=== PATIENT | male | born 1960 | race Caucasian/White ===

== ENCOUNTER → 2017-11-22 11:09 | Outpatient (CLI) | payer OTHER, SELFPAY ==
--- NOTE | 2017-11-22 11:39 | EKG12_ITS ---
Test Reason : PRE-OP Blood Pressure : / mmHG Vent. Rate : 065 BPM Atrial Rate : 065 BPM P-R Int : 124 ms QRS Dur : 068 ms QT Int : 442 ms P-R-T Axes : 055 020 041 degrees QTc Int : 459 ms Normal sinus rhythm Normal ECG Confirmed by HARRIET CASSIDY, JOSE ([id number]), content editor ALONSO CHANEY ([id number] on 11/23/2017 3:34:30 PM Referred By: Diego Melton Confirmed By:JOSE LARIOS MD
--- NOTE | 2017-11-22 11:52 | RAD_ITS ---
STUDY: X-RAY CHEST REASON FOR EXAM: Male, 57 years old. Preop TECHNIQUE: PA and lateral views of the chest. COMPARISON: None. FINDINGS: The lungs are clear and expanded. There is no demonstrated pleural abnormality. Normal size heart. Normal mediastinum and taty. Normal visualized pulmonary arteries. There are calcified plaques of the aortic arch. Normal visualized thoracic spine. Normal visualized ribs, clavicles, and shoulders. There is no demonstrated abnormality of the visualized soft tissue structures of the upper abdomen. RAD/Chest PA and Lateral IMPRESSION: Calcified plaques of the aortic arch. No acute cardiac pulmonary disease process is seen. Electronically Signed: Mj Stewart MD at 17:00 EDT , Service support ,
[2017-11-22 11:56] LABS: Absolute Lymphocyte Count 1.29 X10^3/ul (0.83-4.51); Absolute Neutrophil Count 4.3 X10^3/uL (2.0-7.7); Basophil# 0.04 X10^3/uL; Basophil% 0.6 % (0-1); Eosinophils% 3.2 % (0-5); Hematocrit 41.8 % (40-54); Hemoglobin 15.1 g/dl (13.0-16.5); Lymphocyte # 1.29 X10^3/ul (4.0); Lymphocyte % 20.8 % (19-41); Mean Corp Hgb Conc 36.1 g/gl (32-36); Mean Corpuscular Hgb 32.3 pg (27.0-32.0); Mean Corpuscular Volume 89.5 fL (80-94); Mean Platelet Vol. 9.8 fl (6.2-12.0); Monocyte# 0.35 X10^3/uL; Monocyte% 5.6 % (0-10); Neutrophil # 4.32 X10^3/uL (2.7-7.7); Neutrophil % 69.6 % (47-70); Platelet Count 284 K/mm3 (150-450); RBC Distribution Width CV 13.6 % (11.6-14.6); RBC Distribution Width SD 44.2 fl (35.1-43.9); Red Blood Count 4.67 M/mm3 (4.6-6.2); White Blood Count 6.2 K/mm3 (4.4-11.0)
[2017-11-22 11:58] LABS: POSITIVE COUNT NO; POSITIVE DIFFERENTIAL NO; POSITIVE MORPHOLOGY NO
[2017-11-22 12:20] LABS: Anion Gap 4 (5-15); BUN 14 mg/dL (7-18); BUN/Creat Ratio 23.5 RATIO (10-20); Calcium,Total 8.6 mg/dL (8.5-10.1); Chloride 113 mmol/L (98-107); EST Glomerular Filtration Rate 149 mL/min (>60); Est Glom Filt Rate - Afr Amer 180 mL/min (>60); Glucose 96 mg/dL (74-106); Sodium Level 142 mmol/L (136-145)
== END ==
PROVIDERS: Visit Provider Orthopaedic Surgery
DX: Z01.818 Encounter for other preprocedural examination (principal); F17.200 Nicotine dependence, unspecified, uncomplicated
CPT/HCPCS: 36415; 71046; 80048; 85025; 93005

== ENCOUNTER → 2018-11-21 | Outpatient (CLI) | payer OTHER, SELFPAY ==
[2018-11-21 15:07] VITALS: BMI 32.3
[2018-11-23 01:09] LABS: Absolute Lymphocyte Count 1.56 X10^3/ul (0.83-4.51); Absolute Neutrophil Count 6.7 X10^3/uL (2.0-7.7); Basophil# 0.03 X10^3/uL; Basophil% 0.3 % (0-1); Eosinophil# 0.11 X10^3/uL; Eosinophils% 1.2 % (0-5); Hematocrit 42.7 % (40-54); Hemoglobin 15.1 g/dl (13.0-16.5); Lymphocyte # 1.56 X10^3/ul (4.0); Lymphocyte % 17.5 % (19-41); Mean Corp Hgb Conc 35.4 g/gl (32-36); Mean Corpuscular Hgb 32.7 pg (27.0-32.0); Mean Corpuscular Volume 92.4 fL (80-94); Mean Platelet Vol. 9.7 fl (6.2-12.0); Monocyte# 0.51 X10^3/uL; Monocyte% 5.7 % (0-10); Neutrophil # 6.71 X10^3/uL (2.7-7.7); Neutrophil % 75.2 % (47-70); Platelet Count 296 K/mm3 (150-450); RBC Distribution Width CV 13.7 % (11.6-14.6); RBC Distribution Width SD 45.8 fl (35.1-43.9); Red Blood Count 4.62 M/mm3 (4.6-6.2); White Blood Count 8.9 K/mm3 (4.4-11.0)
[2018-11-23 01:12] LABS: POSITIVE COUNT NO; POSITIVE DIFFERENTIAL NO; POSITIVE MORPHOLOGY NO
[2018-11-23 01:18] LABS: ALB/GLOB Ratio 1.2 RATIO (0.9-2.4); AST(SGOT) 16 U/L (15-37); Alanine Aminotransfer ALT/SGPT 27 U/L (16-61); Albumin, Serum 4.1 g/dL (3.2-5.0); Alkaline Phosphatase 70 U/L (45-117); Anion Gap 4 (5-15); BUN 16 mg/dL (7-18); BUN/Creat Ratio 21.5 RATIO (10-20); Calcium,Total 9.2 mg/dL (8.5-10.1); Chloride 107 mmol/L (98-107); Cholesterol 166 mg/dL (200); Creatinine, Serum 0.74 mg/dL (0.70-1.30); EST Glomerular Filtration Rate 115 mL/min (>60); Est Glom Filt Rate - Afr Amer 139 mL/min (>60); Globulin 3.3 g/dL (2.2-4.2); Glucose 137 mg/dL (74-106); High Density Lipoprotein 63 mg/dL; Potassium 4.4 mmol/L (3.5-5.1); Protein, Total 7.4 g/dL (6.4-8.2); Sodium Level 141 mmol/L (136-145); Thyroid Stim Hormone (TSH) 0.46 uIU/mL (0.358-3.74); Triglycerides 182 mg/dL; Very Low Density Lipoprotein 36 mg/dL (5-40)
== END | disposition home or self-care (01) ==
PROVIDERS: Referring Provider Nurse Practitioner; Visit Provider Nurse Practitioner
DX: I10 Essential (primary) hypertension (principal); E03.9 Hypothyroidism, unspecified
CPT/HCPCS: 80053; 80061; 84443; 85025

== ENCOUNTER → 2018-12-28 | Outpatient (CLI) | payer OTHER, SELFPAY ==
[2018-12-28 17:02] VITALS: BMI 32.1
[2018-12-28 22:40] LABS: Absolute Lymphocyte Count 1.69 X10^3/ul (0.83-4.51); Absolute Neutrophil Count 5.4 X10^3/uL (2.0-7.7); Basophil# 0.05 X10^3/uL; Basophil% 0.6 % (0-1); Eosinophil# 0.17 X10^3/uL; Eosinophils% 2.2 % (0-5); Hematocrit 43.1 % (40-54); Hemoglobin 15.2 g/dl (13.0-16.5); Lymphocyte # 1.69 X10^3/ul (4.0); Lymphocyte % 21.9 % (19-41); Mean Corp Hgb Conc 35.3 g/gl (32-36); Mean Corpuscular Hgb 32.4 pg (27.0-32.0); Mean Corpuscular Volume 91.9 fL (80-94); Mean Platelet Vol. 10.1 fl (6.2-12.0); Monocyte# 0.44 X10^3/uL; Monocyte% 5.7 % (0-10); Neutrophil # 5.36 X10^3/uL (2.7-7.7); Neutrophil % 69.5 % (47-70); Platelet Count 300 K/mm3 (150-450); RBC Distribution Width CV 13.7 % (11.6-14.6); RBC Distribution Width SD 45.5 fl (35.1-43.9); Red Blood Count 4.69 M/mm3 (4.6-6.2); White Blood Count 7.7 K/mm3 (4.4-11.0)
[2018-12-28 22:45] LABS: POSITIVE COUNT NO; POSITIVE DIFFERENTIAL NO; POSITIVE MORPHOLOGY NO
[2018-12-28 22:53] LABS: ALB/GLOB Ratio 1.1 RATIO (0.9-2.4); AST(SGOT) 18 U/L (15-37); Alanine Aminotransfer ALT/SGPT 29 U/L (16-61); Alkaline Phosphatase 66 U/L (45-117); Anion Gap 7 (5-15); BUN 17 mg/dL (7-18); BUN/Creat Ratio 19.7 RATIO (10-20); Calcium,Total 9.2 mg/dL (8.5-10.1); Chloride 107 mmol/L (98-107); Creatinine, Serum 0.86 mg/dL (0.70-1.30); EST Glomerular Filtration Rate 97 mL/min (>60); Est Glom Filt Rate - Afr Amer 117 mL/min (>60); Globulin 3.5 g/dL (2.2-4.2); Glucose 122 mg/dL (74-106); Potassium 3.9 mmol/L (3.5-5.1); Protein, Total 7.5 g/dL (6.4-8.2); Sodium Level 142 mmol/L (136-145)
[2019-01-03 09:34] LABS: Vitamin D 1,25-Dihydroxy 65.4 pg/mL (19.9-79.3)
== END | disposition home or self-care (01) ==
PROVIDERS: Referring Provider Nurse Practitioner; Visit Provider Nurse Practitioner
DX: E87.6 Hypokalemia (principal); I10 Essential (primary) hypertension; E55.9 Vitamin D deficiency, unspecified
CPT/HCPCS: 80053; 82652; 85025

== ENCOUNTER → 2019-03-13 22:25 | Outpatient (CLI) | payer OTHER, SELFPAY ==
[2019-03-13 18:42] VITALS: BMI 31.4
[2019-03-13 22:26] LABS: Lyme Ab Screen Interpretation REF LAB
[2019-03-13 22:37] LABS: Absolute Lymphocyte Count 1.32 X10^3/uL (0.83-4.51); Absolute Neutrophil Count 5.6 X10^3/uL (2.0-7.7); Basophil# 0.07 X10^3/uL; Basophil% 0.9 % (0-1); Eosinophil# 0.19 X10^3/uL; Eosinophils% 2.5 % (0-5); Hematocrit 43.6 % (40-54); Hemoglobin 15.3 g/dL (13.0-16.5); Lymphocyte # 1.32 X10^3/ul (4.0); Lymphocyte % 17.4 % (19-41); Mean Corp Hgb Conc 35.1 g/dL (32-36); Mean Corpuscular Hgb 31.8 pg (27.0-32.0); Mean Corpuscular Volume 90.6 fL (80-94); Mean Platelet Vol. 10.3 fl (6.2-12.0); Monocyte# 0.37 X10^3/uL; Monocyte% 4.9 % (0-10); NRBC Flagged by Analyzer 0 % (0-5); Neutrophil # 5.63 X10^3/uL (2.7-7.7); Platelet Count 306 K/mm3 (150-450); RBC Distribution Width CV 12.9 % (11.6-14.6); RBC Distribution Width SD 42.2 fl (35.1-43.9); Red Blood Count 4.81 M/mm3 (4.6-6.2); White Blood Count 7.6 K/mm3 (4.4-11.0)
[2019-03-13 22:52] LABS: ALB/GLOB Ratio 1.2 RATIO (0.9-2.4); AST(SGOT) 17 U/L (15-37); Alanine Aminotransfer ALT/SGPT 38 U/L (16-61); Albumin, Serum 3.9 g/dL (3.2-5.0); Alkaline Phosphatase 70 U/L (45-117); Anion Gap 4 (5-15); BUN 17 mg/dL (7-18); Calcium,Total 8.9 mg/dL (8.5-10.1); Chloride 109 mmol/L (98-107); Creatinine, Serum 0.77 mg/dL (0.70-1.30); EST Glomerular Filtration Rate 110 mL/min (>60); Est Glom Filt Rate - Afr Amer 133 mL/min (>60); Globulin 3.2 g/dL (2.2-4.2); Glucose 127 mg/dL (74-106); Potassium 3.8 mmol/L (3.5-5.1); Protein, Total 7.1 g/dL (6.4-8.2); Sodium Level 142 mmol/L (136-145)
[2019-03-15 16:07] LABS: ANTINUCLEAR ANTIBODIES DIRECT Positive (Negative); Anti-Centromere B Ab <0.2 AI (0.0-0.9); Anti-Chromatin <0.2 AI (0.0-0.9); Anti-Jo <0.2 AI (0.0-0.9); Anti-Scleroderma-70 AB <0.2 AI (0.0-0.9); RNP Ab 0.2 AI (0.0-0.9); SJOGREN'S Anti-SS-A test < 0.2 AI (0.0-0.9); SJOGREN'S Anti-SS-B test < 0.2 AI (0.0-0.9); Smith Ab <0.2 AI (0.0-0.9)
[2019-03-16 08:19] LABS: Anti-dsDNA Ab 10 IU/mL (0-9)
[2019-03-16 08:21] LABS: Lyme Scn Total Ab w/Rflx <0.91 ISR (0.00-0.90)
== END ==
PROVIDERS: Referring Provider Nurse Practitioner; Visit Provider Nurse Practitioner
DX: M25.50 Pain in unspecified joint (principal)
CPT/HCPCS: 80053; 85025; 86038; 86225; 86235; 86618

== ENCOUNTER → 2019-10-19 | Outpatient (CLI) | payer OTHER, SELFPAY ==
[2019-10-18 16:04] VITALS: BMI 31.6
[2019-10-19 22:01] LABS: Thyroid Stim Hormone (TSH) 1.13 uIU/mL (0.358-3.74)
== END | disposition home or self-care (01) ==
PROVIDERS: Visit Provider Nurse Practitioner
DX: E03.9 Hypothyroidism, unspecified (principal)
CPT/HCPCS: 84443

== ENCOUNTER → 2020-09-16 | Outpatient (CLI) | payer OTHER, SELFPAY ==
[2020-06-11 17:24] VITALS: BMI 31.6
[2020-09-16 20:26] LABS: Absolute Lymphocyte Count 1.68 X10^3/uL (0.83-4.51); Absolute Neutrophil Count 5.1 X10^3/uL (2.0-7.7); Basophil# 0.07 X10^3/uL; Basophil% 0.9 % (0-1); Eosinophil# 0.19 X10^3/uL; Eosinophils% 2.5 % (0-5); Hematocrit 44.3 % (40-54); Hemoglobin 15.5 g/dL (13.0-16.5); Lymphocyte # 1.68 X10^3/ul (4.0); Lymphocyte % 22.1 % (19-41); Mean Corpuscular Hgb 31.6 pg (27.0-32.0); Mean Corpuscular Volume 90.2 fL (80-94); Mean Platelet Vol. 10.1 fl (6.2-12.0); Monocyte# 0.52 X10^3/uL; Monocyte% 6.8 % (0-10); NRBC Flagged by Analyzer 0 % (0-5); Neutrophil # 5.12 X10^3/uL (2.7-7.7); Neutrophil % 67.4 % (47-70); Platelet Count 315 K/mm3 (150-450); RBC Distribution Width CV 13.5 % (11.6-14.6); RBC Distribution Width SD 45.1 fl (35.1-43.9); Red Blood Count 4.91 M/mm3 (4.6-6.2); White Blood Count 7.6 K/mm3 (4.4-11.0)
[2020-09-16 20:45] LABS: ALB/GLOB Ratio 1.2 RATIO (0.9-2.4); AST(SGOT) 18 U/L (15-37); Alanine Aminotransfer ALT/SGPT 30 U/L (16-61); Albumin, Serum 3.9 g/dL (3.2-5.0); Alkaline Phosphatase 81 U/L (45-117); Anion Gap 3 (5-15); BUN 20 mg/dL (7-18); BUN/Creat Ratio 27.8 RATIO (10-20); Calcium,Total 9.3 mg/dL (8.5-10.1); Chloride 107 mmol/L (98-107); Cholesterol 170 mg/dL (200); Creatinine, Serum 0.72 mg/dL (0.70-1.30); EST Glomerular Filtration Rate 119 mL/min (>60); Est Glom Filt Rate - Afr Amer 144 mL/min (>60); Globulin 3.3 g/dL (2.2-4.2); Glucose 76 mg/dL (74-106); High Density Lipoprotein 59 mg/dL; Potassium 4.2 mmol/L (3.5-5.1); Protein, Total 7.2 g/dL (6.4-8.2); Sodium Level 142 mmol/L (136-145); Thyroid Stim Hormone (TSH) 1.86 uIU/mL (0.358-3.74); Triglycerides 174 mg/dL; Very Low Density Lipoprotein 35 mg/dL (5-40)
== END | disposition home or self-care (01) ==
PROVIDERS: Referring Provider Nurse Practitioner; Visit Provider Nurse Practitioner
DX: I10 Essential (primary) hypertension (principal); E03.9 Hypothyroidism, unspecified
CPT/HCPCS: 80053; 80061; 84443; 85025

== ENCOUNTER → 2022-01-13 | Outpatient (CLI) | payer OTHER, SELFPAY ==
[2022-01-13 22:12] LABS: Absolute Lymphocyte Count 1.68 X10^3/uL (0.83-4.51); Absolute Neutrophil Count 6.2 X10^3/uL (2.0-7.7); Basophil# 0.06 X10^3/uL; Basophil% 0.7 % (0-1); Eosinophil# 0.18 X10^3/uL; Eosinophils% 2.1 % (0-5); Hematocrit 43.3 % (40-54); Hemoglobin 15.4 g/dL (13.0-16.5); Lymphocyte # 1.68 X10^3/ul (0.83-4.51); Lymphocyte % 19.7 % (19-41); Mean Corp Hgb Conc 35.6 g/dL (32-36); Mean Corpuscular Hgb 32.1 pg (27.0-32.0); Mean Corpuscular Volume 90.2 fL (80-94); Mean Platelet Vol. 10.1 fl (6.2-12.0); Monocyte# 0.43 X10^3/uL; NRBC Flagged by Analyzer 0 % (0-5); Neutrophil # 6.15 X10^3/uL (2.7-7.7); Neutrophil % 72.1 % (47-70); Platelet Count 331 K/mm3 (150-450); RBC Distribution Width CV 12.9 % (11.6-14.6); RBC Distribution Width SD 42.4 fl (35.1-43.9); White Blood Count 8.5 K/mm3 (4.4-11.0)
[2022-01-13 22:23] LABS: Vitamin B12 441 pg/mL (211-911)
[2022-01-13 22:34] LABS: ALB/GLOB Ratio 1.2 RATIO (0.9-2.4); AST(SGOT) 14 U/L (15-37); Alanine Aminotransfer ALT/SGPT 30 U/L (16-61); Albumin, Serum 3.8 g/dL (3.2-5.0); Alkaline Phosphatase 68 U/L (45-117); Anion Gap 6 (5-15); BUN 15 mg/dL (7-18); BUN/Creat Ratio 20.9 RATIO (10-20); Chloride 107 mmol/L (98-107); Cholesterol 178 mg/dL (200); Creatinine, Serum 0.72 mg/dL (0.70-1.30); EST Glomerular Filtration Rate 119 mL/min (>60); Est Glom Filt Rate - Afr Amer 143 mL/min (>60); Globulin 3.3 g/dL (2.2-4.2); Glucose 101 mg/dL (74-106); High Density Lipoprotein 60 mg/dL; Potassium 3.9 mmol/L (3.5-5.1); Protein, Total 7.1 g/dL (6.4-8.2); Sodium Level 138 mmol/L (136-145); Thyroid Stim Hormone (TSH) 4.94 uIU/mL (0.358-3.74); Triglycerides 118 mg/dL; Very Low Density Lipoprotein 24 mg/dL (5-40)
[2022-01-17 16:04] LABS: Vitamin D 1,25-Dihydroxy 82.6 pg/mL (24.8-81.5)
== END | disposition home or self-care (01) ==
LOC: LABSPEC 21:58
PROVIDERS: PCP Nurse Practitioner; Visit Provider Nurse Practitioner
DX: I10 Essential (primary) hypertension (principal); E03.9 Hypothyroidism, unspecified; E53.9 Vitamin B deficiency, unspecified; E55.9 Vitamin D deficiency, unspecified
CPT/HCPCS: 80053; 80061; 82607; 82652; 84443; 85025

== ENCOUNTER → 2022-07-28 | Outpatient (CLI) | payer OTHER, SELFPAY ==
[2022-07-28 22:32] LABS: Thyroid Stim Hormone (TSH) 1.97 uIU/mL (0.358-3.74)
== END | disposition home or self-care (01) ==
PROVIDERS: PCP Nurse Practitioner; Visit Provider Nurse Practitioner
DX: E03.9 Hypothyroidism, unspecified (principal)
CPT/HCPCS: 84443

== ENCOUNTER → 2022-11-03 | Outpatient (CLI) | payer OTHER, SELFPAY ==
[2022-11-03 09:45] LABS: Absolute Lymphocyte Count 1.91 X10^3/uL (0.83-4.51); Absolute Neutrophil Count 4.5 X10^3/uL (2.0-7.7); Basophil# 0.07 X10^3/uL; Eosinophil# 0.26 X10^3/uL; Eosinophils% 3.6 % (0-5); Hematocrit 43.9 % (40-54); Hemoglobin 15.6 g/dL (13.0-16.5); Lymphocyte # 1.91 X10^3/ul (0.83-4.51); Lymphocyte % 26.8 % (19-41); Mean Corp Hgb Conc 35.5 g/dL (32-36); Mean Corpuscular Volume 90.1 fL (80-94); Mean Platelet Vol. 9.8 fl (6.2-12.0); Monocyte# 0.38 X10^3/uL; Monocyte% 5.3 % (0-10); NRBC Flagged by Analyzer 0 % (0-5); Neutrophil # 4.49 X10^3/uL (2.7-7.7); Platelet Count 273 K/mm3 (150-450); RBC Distribution Width CV 12.6 % (11.6-14.6); RBC Distribution Width SD 41.2 fl (35.1-43.9); Red Blood Count 4.87 M/mm3 (4.6-6.2); White Blood Count 7.1 K/mm3 (4.4-11.0)
[2022-11-03 10:48] LABS: BNP,B-Type NATRIURETIC PEPTIDE 110.2 pg/mL (0-100)
== END | disposition home or self-care (01) ==
LOC: PAVLAB 09:26
PROVIDERS: PCP Nurse Practitioner; Referring Provider Internal Medicine; Visit Provider Internal Medicine
DX: G47.30 Sleep apnea, unspecified (principal); E53.9 Vitamin B deficiency, unspecified
CPT/HCPCS: 36415; 83880; 85025

== ENCOUNTER → 2022-11-13 | Outpatient (CLI) | payer OTHER, SELFPAY | END | disposition home or self-care (01) | PROVIDERS: PCP Nurse Practitioner; Referring Provider Internal Medicine; Visit Provider Internal Medicine | DX: G47.10 Hypersomnia, unspecified (principal); G47.30 Sleep apnea, unspecified | CPT/HCPCS: 95810 ==

== ENCOUNTER → 2022-11-17 | Outpatient (CLI) | payer OTHER, SELFPAY ==
--- NOTE | 2022-11-18 08:38 | PFT ---
INTRODUCTION: The patient is a 62-year-old female that presents for pulmonary function studies secondary to a diagnosis of nicotine dependency. Respiratory therapy reported good patient effort. Bronchodilators were used during testing. INTERPRETATION: Forced expiration spirometry demonstrates no evidence of a large airways obstructive ventilatory defect. There was no significant response to aerosolized bronchodilators. Spirograms are of good quality and plateau normally. Body plethysmography was obtained and demonstrated lung volumes to be within normal limits. Diffusing capacity by single breath CO was likewise within normal limits. IMPRESSION: Grossly normal pulmonary function studies.
== END | disposition home or self-care (01) ==
PROVIDERS: PCP Nurse Practitioner; Referring Provider Internal Medicine; Visit Provider Internal Medicine
DX: Z87.891 Personal history of nicotine dependence (principal)
CPT/HCPCS: 94060; 94726; 94729

== ENCOUNTER → 2023-01-27 | Outpatient (CLI) | payer OTHER, SELFPAY ==
[2023-01-27 23:11] LABS: AST(SGOT) 16 U/L (15-37); Alanine Aminotransfer ALT/SGPT 35 U/L (13-56); Albumin, Serum 3.5 g/dL (3.2-5.0); Alkaline Phosphatase 72 U/L (45-117); Anion Gap 3 (5-15); BUN 14 mg/dL (7-18); BUN/Creat Ratio 19.2 RATIO (10-20); CRP, High Sensitivity Cardiac 3.79 mg/L; Calcium,Total 9.4 mg/dL (8.5-10.1); Chloride 111 mmol/L (98-107); Creatinine, Serum 0.73 mg/dL (0.55-1.02); EST Glomerular Filtration Rate 86 mL/min (>60); Est Glom Filt Rate - Afr Amer 104 mL/min (>60); Globulin 3.4 g/dL (2.2-4.2); Glucose 165 mg/dL (74-106); Potassium 4.3 mmol/L (3.5-5.1); Protein, Total 6.9 g/dL (6.4-8.2); Sodium Level 143 mmol/L (136-145); Thyroid Stim Hormone (TSH) 1.45 uIU/mL (0.358-3.74)
== END | disposition home or self-care (01) ==
PROVIDERS: PCP Nurse Practitioner; Visit Provider Nurse Practitioner
DX: I10 Essential (primary) hypertension (principal); E03.9 Hypothyroidism, unspecified; R42 Dizziness and giddiness
CPT/HCPCS: 80053; 84443; 86141

== ENCOUNTER → 2023-03-30 | Outpatient (CLI) | payer SELFPAY ==
[2023-03-30 21:03] LABS: Absolute Lymphocyte Count 1.71 X10^3/uL (0.83-4.51); Absolute Neutrophil Count 3.5 X10^3/uL (2.0-7.7); Basophil# 0.07 X10^3/uL; Basophil% 1.2 % (0-1); Eosinophil# 0.18 X10^3/uL; Hematocrit 41.1 % (37-47); Hemoglobin 14.7 g/dL (12.0-15.0); Lymphocyte # 1.71 X10^3/ul (0.83-4.51); Lymphocyte % 28.8 % (19-41); Mean Corp Hgb Conc 35.8 g/dL (32-36); Mean Corpuscular Hgb 31.6 pg (27.0-32.0); Mean Corpuscular Volume 88.4 fL (81-99); Mean Platelet Vol. 10.1 fl (6.2-12.0); Monocyte# 0.42 X10^3/uL; Monocyte% 7.1 % (0-10); NRBC Flagged by Analyzer 0 % (0-5); Neutrophil # 3.54 X10^3/uL (2.7-7.7); Neutrophil % 59.7 % (47-70); Platelet Count 312 K/mm3 (150-450); RBC Distribution Width CV 12.8 % (11.6-14.6); RBC Distribution Width SD 41.2 fl (35.1-43.9); Red Blood Count 4.65 M/mm3 (4.2-5.4); White Blood Count 5.9 K/mm3 (4.4-11.0)
[2023-03-30 21:16] LABS: ALB/GLOB Ratio 1.1 RATIO (0.9-2.4); AST(SGOT) 16 U/L (15-37); Alanine Aminotransfer ALT/SGPT 36 U/L (13-56); Albumin, Serum 3.9 g/dL (3.2-5.0); Alkaline Phosphatase 84 U/L (45-117); Anion Gap 6 (5-15); BUN 14 mg/dL (7-18); BUN/Creat Ratio 19.8 RATIO (10-20); Calcium,Total 9.4 mg/dL (8.5-10.1); Chloride 108 mmol/L (98-107); Cholesterol 158 mg/dL (200); Creatinine, Serum 0.71 mg/dL (0.55-1.02); EST Glomerular Filtration Rate 89 mL/min (>60); Est Glom Filt Rate - Afr Amer 108 mL/min (>60); Globulin 3.4 g/dL (2.2-4.2); Glucose 157 mg/dL (74-106); High Density Lipoprotein 47 mg/dL; Potassium 3.7 mmol/L (3.5-5.1); Protein, Total 7.3 g/dL (6.4-8.2); Sodium Level 140 mmol/L (136-145); Triglycerides 115 mg/dL; Very Low Density Lipoprotein 23 mg/dL (5-40)
== END | disposition home or self-care (01) ==
PROVIDERS: PCP Nurse Practitioner; Visit Provider Nurse Practitioner
DX: G47.30 Sleep apnea, unspecified (principal); G47.10 Hypersomnia, unspecified; R53.83 Other fatigue; N95.1 Menopausal and female climacteric states; I10 Essential (primary) hypertension; E03.9 Hypothyroidism, unspecified
CPT/HCPCS: 80053; 80061; 85025

== ENCOUNTER → 2024-03-09 | Outpatient (CLI) | payer OTHER, SELFPAY ==
[2024-03-09 21:10] LABS: Absolute Lymphocyte Count 1.68 X10^3/uL (0.83-4.51); Absolute Neutrophil Count 5.7 X10^3/uL (2.0-7.7); Basophil# 0.04 X10^3/uL; Basophil% 0.5 % (0-1); Eosinophils% 1.3 % (0-5); Hematocrit 43.8 % (37-47); Lymphocyte # 1.68 X10^3/ul (0.83-4.51); Lymphocyte % 21.3 % (19-41); Mean Corp Hgb Conc 36.5 g/dL (32-36); Mean Corpuscular Hgb 31.9 pg (27.0-32.0); Mean Corpuscular Volume 87.4 fL (81-99); Mean Platelet Vol. 10.2 fl (6.2-12.0); Monocyte# 0.41 X10^3/uL; Monocyte% 5.2 % (0-10); NRBC Flagged by Analyzer 0 % (0-5); Neutrophil # 5.65 X10^3/uL (2.7-7.7); Neutrophil % 71.4 % (47-70); Platelet Count 332 K/mm3 (150-450); RBC Distribution Width CV 13.2 % (11.6-14.6); RBC Distribution Width SD 42.3 fl (35.1-43.9); Red Blood Count 5.01 M/mm3 (4.2-5.4); White Blood Count 7.9 K/mm3 (4.4-11.0)
[2024-03-09 21:25] LABS: ALB/GLOB Ratio 1.2 RATIO (0.9-2.4); AST(SGOT) 25 U/L (15-37); Alanine Aminotransfer ALT/SGPT 43 U/L (13-56); Albumin, Serum 4.1 g/dL (3.2-5.0); Alkaline Phosphatase 93 U/L (45-117); Anion Gap 6 (5-15); BUN 17 mg/dL (7-18); BUN/Creat Ratio 21.4 RATIO (10-20); CRP 4.84 mg/L (0.0-3.0); Calcium,Total 9.7 mg/dL (8.5-10.1); Chloride 109 mmol/L (98-107); Cholesterol 168 mg/dL (200); Creatinine, Serum 0.79 mg/dL (0.55-1.02); EST Glomerular Filtration Rate 78 mL/min (>60); Est Glom Filt Rate - Afr Amer 94 mL/min (>60); Globulin 3.4 g/dL (2.2-4.2); Glucose 108 mg/dL (74-106); High Density Lipoprotein 56 mg/dL; Potassium 3.5 mmol/L (3.5-5.1); Protein, Total 7.5 g/dL (6.4-8.2); Sodium Level 140 mmol/L (136-145); Triglycerides 103 mg/dL; Uric Acid 5.2 mg/dL (2.6-6.0); Very Low Density Lipoprotein 21 mg/dL (5-40)
[2024-03-09 21:34] LABS: Hemoglobin A1c 6.1 % (3.8-5.6)
[2024-03-14 11:59] LABS: Anti-Centromere B Ab <0.2 AI (0.0-0.9); Anti-Chromatin <0.2 AI (0.0-0.9); Anti-Jo <0.2 AI (0.0-0.9); Anti-Scleroderma-70 AB <0.2 AI (0.0-0.9); Anti-dsDNA Ab 8 IU/mL (0-9); RNP Ab 0.2 AI (0.0-0.9); SJOGREN'S Anti-SS-A test < 0.2 AI (0.0-0.9); SJOGREN'S Anti-SS-B test < 0.2 AI (0.0-0.9); Smith Ab <0.2 AI (0.0-0.9)
== END | disposition home or self-care (01) ==
PROVIDERS: PCP Nurse Practitioner; Referring Provider Nurse Practitioner; Visit Provider Nurse Practitioner
DX: E11.65 Type 2 diabetes mellitus with hyperglycemia (principal); M25.521 Pain in right elbow; M25.522 Pain in left elbow; I10 Essential (primary) hypertension; E87.6 Hypokalemia
CPT/HCPCS: 80053; 80061; 83036; 84550; 85025; 86140; 86225; 86235

== ENCOUNTER → 2024-07-17 | Outpatient (CLI) | payer OTHER, SELFPAY ==
[2024-07-17 22:54] LABS: Absolute Neutrophil Count 3.8 X10^3/uL (2.0-7.7); Basophil# 0.06 X10^3/uL; Eosinophil# 0.15 X10^3/uL; Eosinophils% 2.4 % (0-5); Hematocrit 37.5 % (37-47); Hemoglobin 13.5 g/dL (12.0-15.0); Lymphocyte % 30.3 % (19-41); Mean Corpuscular Volume 88.9 fL (81-99); Mean Platelet Vol. 10.5 fl (6.2-12.0); Monocyte# 0.37 X10^3/uL; Monocyte% 5.9 % (0-10); NRBC Flagged by Analyzer 0 % (0-5); Neutrophil # 3.77 X10^3/uL (2.7-7.7); Neutrophil % 60.1 % (47-70); Platelet Count 305 K/mm3 (150-450); RBC Distribution Width CV 13.2 % (11.6-14.6); RBC Distribution Width SD 42.9 fl (35.1-43.9); Red Blood Count 4.22 M/mm3 (4.2-5.4); White Blood Count 6.3 K/mm3 (4.4-11.0)
[2024-07-17 23:18] LABS: ALB/GLOB Ratio 1.2 RATIO (0.9-2.4); AST(SGOT) 21 U/L (15-37); Alanine Aminotransfer ALT/SGPT 34 U/L (13-56); Albumin, Serum 3.7 g/dL (3.2-5.0); Alkaline Phosphatase 74 U/L (45-117); Amylase 52 U/L (25-115); Anion Gap 5 (5-15); BUN 22 mg/dL (7-18); BUN/Creat Ratio 33.5 RATIO (10-20); Calcium,Total 9.4 mg/dL (8.5-10.1); Chloride 112 mmol/L (98-107); Cholesterol 148 mg/dL (200); Creatinine, Serum 0.66 mg/dL (0.55-1.02); EST Glomerular Filtration Rate 97 mL/min (>60); Est Glom Filt Rate - Afr Amer 117 mL/min (>60); Globulin 3.1 g/dL (2.2-4.2); Glucose 98 mg/dL (74-106); High Density Lipoprotein 57 mg/dL; Lipase 60 U/L (13-75); Protein, Total 6.8 g/dL (6.4-8.2); Sodium Level 141 mmol/L (136-145); Triglycerides 94 mg/dL; Very Low Density Lipoprotein 19 mg/dL (5-40)
== END | disposition home or self-care (01) ==
PROVIDERS: PCP Nurse Practitioner; Visit Provider Nurse Practitioner
DX: E11.65 Type 2 diabetes mellitus with hyperglycemia (principal); R10.30 Lower abdominal pain, unspecified; K57.32 Diverticulitis of large intestine without perforation or abscess without bleeding; G47.10 Hypersomnia, unspecified; I10 Essential (primary) hypertension; E87.6 Hypokalemia; E03.9 Hypothyroidism, unspecified
CPT/HCPCS: 80053; 80061; 82150; 83690; 84443; 85025

== ENCOUNTER → 2025-02-01 | Outpatient (CLI) | payer OTHER, SELFPAY ==
[2025-02-01 22:41] LABS: Hematocrit 44.1 % (37-47); Hemoglobin 15.3 g/dL (12.0-15.0); Immature Granulocytes Count 0.010 X10^3/uL (0.0-0.0); Mean Corp Hgb Conc 34.7 g/dL (32-36); Mean Corpuscular Volume 88.4 fL (81-99); Mean Platelet Vol. 11.1 fl (6.2-12.0); NRBC Flagged by Analyzer 0 % (0-5); POSITIVE COUNT YES; RBC Distribution Width CV 13.2 % (11.6-14.6); RBC Distribution Width SD 42.8 fl (35.1-43.9); Red Blood Count 4.99 M/mm3 (4.2-5.4); White Blood Count 3.2 K/mm3 (4.4-11.0)
[2025-02-01 22:59] LABS: AST(SGOT) 28 U/L (<=31); Alanine Aminotransfer ALT/SGPT 44 U/L (<=34); Albumin, Serum < 0.2 g/dL (3.4-4.8); Alkaline Phosphatase 85 U/L (35-104); Anion Gap 13 (5-15); BUN 15 mg/dL (4-19); BUN/Creat Ratio 20.1 RATIO (10-20); Calcium,Total 10.2 mg/dL (7.6-11.0); Carbon Dioxide 23.4 mmol/L (21.0-32.0); Chloride 101 mmol/L (98-108); Globulin UNABLE TO CALCULATE g/dL (2.2-4.2); Glucose 214 mg/dL (70-99); Potassium 4.4 mmol/L (3.3-5.1)
[2025-02-02 00:10] LABS: Differential Indicated SCAN CRITERIA MET
[2025-02-02 00:13] LABS: Reactive Lymphocyte RARE
== END | disposition home or self-care (01) ==
PROVIDERS: PCP Nurse Practitioner; Visit Provider Nurse Practitioner
DX: R10.9 Unspecified abdominal pain (principal); E11.65 Type 2 diabetes mellitus with hyperglycemia; K57.92 Diverticulitis of intestine, part unspecified, without perforation or abscess without bleeding
CPT/HCPCS: 80053; 83036; 85025

== ENCOUNTER → 2025-02-19 | Outpatient (CLI) | payer OTHER, SELFPAY ==
--- OUTSIDE RECORDS SUMMARY | 2025-02-20 03:34 | XMS RPT_ITS | CCD ---
Author Organization [facility] Providers Care Sale Professional Digital Marketing Name Role Phone Jigar Cho Unavailable Unavailable Chauncey, Radha Unavailable Unavailable Chauncey, Radha Unavailable Unavailable SEBASTIAN, D. R Unavailable Unavailable IMCA Unavailable Unavailable CHAUNCEY, RADHA Y Unavailable Unavailable SEBASTIAN, D. R Unavailable Unavailable SEBASTIAN, D. R Unavailable Unavailable CHAUNCEY, RADHA Y Unavailable Unavailable SEBASTIAN, D. R Unavailable Unavailable CHAUNCEY, RADHA Y Unavailable Unavailable Chauncey, Radha Primary Care Provider Radha Grossman Primary Care Provider Glendy Anderson Primary Care Provider [phone] Justin FURNACE OPERATOR AND TENDER.MANAGER SKILLED Glendy L Primary Care Provide r Justin FURNACE OPERATOR AND TENDER.LENNY Glendy L Primary Care Provide r Justin FURNACE OPERATOR AND TENDER.MANAGER SKILLED Glendy L Primary Care Provide r DARLINE BARNHART Attending Unavailable DARLINE BARNHART Referring Unavailable MELVIN ANDERSONA Rhiannon Primary Care Unavailable Justin CIVIL ENGINEER'S AIDE, CIVIL ENGINEER'S AIDE-C Glendy Primary Care Provider Justin CIVIL ENGINEER'S AIDE, CIVIL ENGINEER'S AIDE-C Glendy Referring Provider Dr. Grey Tapia Attending Provider Dr. Grey Tapia Referring Provider Dr. Grey Tapia Other Provider Dr. Quinten Elliott Attending Provider Dr. El Bee Primary Care Unavailab Ms. Sabas Pavon Attending Unavailab july Anderson CIVIL ENGINEER'S AIDE, CIVIL ENGINEER'S AIDE-C Glendy Primary Care Provider Justin CIVIL ENGINEER'S AIDE, CIVIL ENGINEER'S AIDE-C Glendy Referring Provider [phone] Maureen CIVIL ENGINEER'S AIDE, CIVIL ENGINEER'S AIDE-C Margie Attending Provider DARLINE BARNHART Referring Unavailable ANDERSON, GLENDY L Primary Care Unavailable ANDERSON, GLENDY L Primary Care Unavailable CJ GRIMALDO Attending Unavailable GENA MEENNDEZ Referring Unavailable Cheli Wright MD Primary Care Provider CHELI WRIGHT Attending Unavailable CHELI WRIGHT Primary Care Unavailable CHELI WRIGHT Primary Care Unavailable CHELI WRIGHT Referring Unavailable ANDERSON, GLENDY L Primary Care Unavailable CHELI WRIGHT Referring Unavailable ANDERSON, GLENDY L Primary Care Unavailable CHELI WRIGHT Referring Unavailable ANDERSON, GLENDY L Primary Care Unavailable CHELI WRIGHT Referring Unavailable ANDERSON, GLENDY L Primary Care Unavailable CHELI WRIGHT Referring Unavailable ANDERSON, GLENDY L Primary Care Unavailable Anderson FURNACE OPERATOR AND TENDER.MANAGER SKILLED, Glendy L Primary Care Provide r Anderson FURNACE OPERATOR AND TENDER-MANAGER SKILLED, Glendy L Primary Care Provide r Anderson, Glendy Primary Care Provider ANDERSON, GLENDY Primary Care Unavailable YADIRA MERIDA Attending Unavaila ble Anderson CIVIL ENGINEER'S AIDE-C, Glendy Primary Care Provider [phone] Anderson CIVIL ENGINEER'S AIDE-C, Glendy Attending Provider Anderson CIVIL ENGINEER'S AIDE-C, Glendy Referring Provider Anderson CIVIL ENGINEER'S AIDE, Glendy Attending Unavailable Anderson CIVIL ENGINEER'S AIDE, Glendy Primary Care Unavailable Anderson CIVIL ENGINEER'S AIDE, Glendy Attending Unavailable Anderson CIVIL ENGINEER'S AIDE, Glendy Primary Care Unavailable Anderson CIVIL ENGINEER'S AIDE, Glendy Primary Care Unavailable Anderson CIVIL ENGINEER'S AIDE, Glendy Referring Unavailable Anderson CIVIL ENGINEER'S AIDE, Glendy Attending Unavailable Anderson CIVIL ENGINEER'S AIDE, Glendy Primary Care Unavailable Wes Harris Attending Unavailable Anderson CIVIL ENGINEER'S AIDE, Glendy Referring Unavailable Anderson FURNACE OPERATOR AND TENDER-MANAGER SKILLED, Glendy L Primary Care Provide r Cheli Wright MD Unavailable [phone] ANDERSON, GLENDY L Primary Care Unavailable Allergies Allergy Classification Reported Allergen(s) Allergy Type Date of Onset Reaction(s) Facility (20 sources) acetaminophen / HYDROcodone; Translations: [HYDROCODONE-ACETA MINOPHEN] Drug Allergy 05-20-20 15 Shortness Of Breath, Swelling, Rash [facility] (20 sources) Penicillins; Translations: [PENICILLINS] Propensity to adverse reactions (disorder) 05-20-20 15 Swelling, Rash [facility] (4 sources) cyclobenzaprine Drug Allergy 05-18-20 17 Anxiety [place], [place] (20 sources) Tomatoes; Translations: [TOMATOES] Food Intolerance 06-11-20 20 GI Upset [facility] (7 sources) HYDROcodone Drug Allergy 05-27-20 18 nausea and rash [facility] (7 sources) predniSONE Drug Allergy 11-22-19 19 FELT DRUNK AND DIZZY, LIGHTHEADED [facility] (2 sources) DULoxetine Drug Allergy 12-01-19 25 [facility] (2 sources) Prednisone Allergy to substance 12-01-19 25 [facility] (1 source) DULoxetine Drug Allergy 03-20-20 24 Upset Stomach [facility] (1 source) DULoxetine Drug Allergy 03-20-20 24 [facility] (1 source) HYDROcodone Drug Allergy 02-24-20 23 [facility] (1 source) predniSONE Drug Allergy 02-24-20 23 [facility] Medications Current Medications Medication Drug Class(es) Dates Sig (Normalized) Sig (Original) aspirin 81 mg delayed release oral tablet (20 sources) Platelet Aggregation Inhibitor, Nonsteroidal Anti-inflammatory Drug Start: 05-27-2018 Aspirin (Adult Low Dose Aspirin) 81 mg tablet,delayed release (DR/EC) Active 81 mg PO DAILY May 27, 2018 12:00am take 1 tablet by mouth once jay y aspirin 81 MG tablet Take 81 mg by mouth daily 0 Active Comment on above: Take 81 mg by mouth once daily. b complex 0.4 mg tablet (8 sources) take 1 tablet by mouth once daily b complex 0.4 mg tablet Take 1 tablet by mouth once daily. Active B Complex-C (SUPER B COMPLEX PO) (2 sources) B Complex-C (SUP ER B COMPLEX PO) Take by mouth 0 Active 12 hr buPROPion hydrochloride 150 mg extended release oral tablet (1 source) Aminoketone Start: 025 take 1 tablet by mouth twice daily Bupropion Hcl 150 mg tablet sustained-release 12 hr Active 150 mg PO TWICE A DAY 60 30 6 August 09, 2024 1:00am stop smoking cetirizine hydrochloride 10 mg oral tablet (20 sources) Histamine-1 Receptor Antagonist take 1 tablet by mouth once daily cetirizine (ZyrTEC) 10 mg tablet Take 1 tablet (10 mg) by mouth once daily. Active Comment on above: Take 10 mg by mouth once daily. cholecalciferol 0.01 mg oral capsule (9 sources) Vitamin D Start: take 1 capsule by mouth once daily Cholecalciferol (Vitamin D3) 400 unit capsule Active 400 U PO DAILY December 28, 2018 12:00am take 1 tablet by mouth once jay y vitamin D (CHOLECALCIFEROL) 1000 UNIT TABS tablet Take 1,000 Units by mouth daily 0 Active ciprofloxacin 500 mg oral tablet (6 sources) Quinolone Antimicrobial Start: 02-01-2025 take 1 tablet by mouth twice daily Ciprofloxacin Hcl (Cipro) 500 mg tablet Active 500 mg PO TWICE A DAY 28 14 February 01, 2025 12:00am February 14, 2025 12:00am Start: 11-30-2024 End: 12-10-2024 take 1 tablet by mouth twice daily ciprofloxacin (Cipro) 500 MG tablet Take 1 tablet (500 mg) by mouth 2 times daily for 10 days. 20 tablet 11/30/2024 12/10/2024 Active Start: 07-17-2024 End: 10-11-2024 take 1 tablet by mouth twice daily Ciprofloxacin Hcl (Cipro) 500 mg tablet Discontinued 500 mg PO TWICE A DAY 20 0 July 17, 2024 1:00am October 11, 2024 4:54pm Start: 02-11-2023 End: 03-30-2023 take 1 tablet by mouth twice daily Ciprofloxacin Hcl (Cipro) 500 mg tablet Discontinued 500 mg PO TWICE A DAY 14 February 11, 2023 12:00am March 30, 2023 6:32pm diclofenac sodium 50 mg delayed release oral tablet (2 sources) Nonsteroidal Anti-inflammatory Drug Start: 09-22-2017 take 1 tablet by mouth three times daily at mealtime diclofenac (VOLTAREN) 50 MG EC tablet Take 1 tablet by mouth 3 times daily (with meals) for 10 days 30 tablet 0 09/22/2017 Active dicyclomine hydrochloride 20 mg oral tablet (4 sources) Anticholinergic Start: 11-30-2024 End: 12-10-2024 take 1 tablet by mouth twice daily dicyclomine (Bentyl) 20 MG tablet Take 1 tablet (20 mg) by mouth 2 times daily for 10 days. 20 tablet 11/30/2024 12/10/2024 Active Start: 11-30-2024 End: 11-30-2024 take 10 mg by mouth once 10 mg, Oral, Once, On Suki 11/30/24 at 1335, For 1 dose enteric contrast (will be provided with radiology test) (2 sources) Start: 02-11-2022 End: 02-12-2022 enteric contrast (will be provided with radiology test) For CT ABD/PEL W IVCON Routine order Administer, As Directed One Time Only, via Oral, Rectal, both Oral and Rectal, Enteric Tube, Stoma or Indwelling Catheter, Enteric Contrast as designated per enteric contrast guidelines 1 Each 0 02/11/2022 02/12/2022 Active Comment on above: For CT ABD/PEL W IVC ON Routine order Administer, As Directed One Time Only, via Oral, Rectal, both Oral and Rectal, Enteric Tube, Stoma or Indwelling Catheter, Enteric Contrast as designated per enteric contrast guidelines ethinyl estradiol, testosterone (CPD) (19 sources) Start: 08-21-2019 ethinyl estrad iol, testosterone (CPD) Indications: Symptoms, such as flushing, sleeplessness, headache, lack of concentration, associated with the menopause Comments for compounding pharmacy: TRIESTROGEN 5 MG/TESTOSTERONE 1.5 MG CAPSULES 90 tablet 1 08/21/2019 Active Comment on above: Comments for compoun ding pharmacy: TRIESTROGEN 5 MG/TESTOSTERONE 1.5 MG CAPSULES Flash Glucose Sensor (Freestyle Omi 2 Sensor) kit (2 sources) Start: 08-23-2023 Flash Glucose Sensor (Freestyle Omi 2 Sensor) kit Active 0 .Route 1 August 23, 2023 9:47pm Type 2 diabetes mellitus with hyperglycemia Type 2 diabetes mellitus with hyperglycemia scan BS as needed Start: 07-28-2023 End: 08-23-2023 Flash Glucose Sensor (Freest yle Omi 2 Sensor) kit Discontinued 0 .Route 1 July 28, 2023 1:00am August 23, 2023 9:47pm Type 2 diabetes mellitus with hyperglycemia Type 2 diabetes mellitus with hyperglycemia scan BS as needed hydroCHLOROthiazide 12.5 mg / lisinopril 20 mg oral tablet (20 sources) Thiazide Diuretic, Angiotensin Converting Enzyme Inhibitor Start: 12-28-2018 End: 07-17-2024 Lisinopril-Hydrochlorothiazi de 20-12.5 mg tablet Active 1 {tbl} PO daily 90 July 17, 2024 9:06pm Start: 12-28-2018 End: 03-30-2023 take 1 tablet by mouth once daily Lisinopril-Hydrochlorothiazide Active 1 TABLET PO daily March 30, 2023 6:42pm Start: 05-27-2018 End: 12-28-2018 take 1 tablet by mouth once daily Lisinopril-Hydrochlorothiazide Discontin ued 1 TABLET PO DAILY November 21, 2018 3:24pm December 28, 2018 5:18pm Start: 03-14-2018 End: 12-28-2018 Lisinopril-Hydrochlorothiazi de 20-25 mg tablet Discontinued 1 {tbl} PO DAILY November 21, 2018 3:24pm December 28, 2018 5:18pm Comment on above: Take 0.5 tablets by mouth once daily. iv contrast (will be provided with radiology test) (2 sources) Start: End: iv contrast (will be provided with radiology test) CT ABD/PEL -Inject, intravenously, once for 1 dose.No IV access, insert saline lock prior to the beginning of sedation, infusion, injection of imaging exam. Discontinue saline lock post exam. If Pt. has a central line or IVAD, may access for administration according to line specific nursing protocol. Once exam is complete flush line and de-access according to line specific nursing protocol in the CT contrast administration guidelines link. 1 Each 0 02/11/2022 02/12/2022 Active Comment on above: CT ABD/PEL -Inject, intravenously, once for 1 dose.No IV access, insert saline lock prior to the beginning of sedation, infusion, injection of imaging exam. Discontinue saline lock post exam. If Pt. has a central line or IVAD, may access for administration according to line specific nursing protocol. Once exam is complete flush line and de-access according to line specific nursing protocol in the CT contrast administration guidelines link. mecobalamin 1 mg oral capsule (2 sources) Methylcobalamin ([id number]) 1 MG CHEW Take by mouth 0 Active metFORMIN hydrochloride 500 mg oral tablet (10 sources) Biguanide Start: 023 End: 024 take 1 tablet by mouth twice daily Metformin 500 mg tablet Active 500 mg PO TWICE A DAY 180 3 July 17, 2024 9:06pm take 1 tablet by naila th once daily at breakfast metFORMIN (Glucophage) 500 mg tablet Dennis e 1 tablet (500 mg) by mouth once daily with breakfast. Active metroNIDAZOLE 250 mg oral tablet (7 sources) Nitroimidazole Antimicrobial Start: 02-01-2025 take 1 tablet by mouth three times daily Metronidazole 250 mg tablet Active 250 mg PO THREE TIMES A DAY 42 14 0 February 01, 2025 12:00am February 14, 2025 12:00am Start: 01-09-2025 End: 01-19-2025 take 1 tablet by mouth three times daily Metronidazole 250 mg tablet Discontinued 250 mg PO THREE TIMES A DAY 30 10 0 January 09, 2025 3:21pm January 18, 2025 12:00am January 19, 2025 12:08am Start: 11-30-2024 End: 12-10-2024 take 1 tablet by mouth twice daily metroNIDAZOLE (Flagyl) 500 MG tablet Take 1 tablet (500 mg) by mouth 2 times daily for 10 days. 20 tablet 11/30/2024 12/10/2024 Active Start: 07-17-2024 End: 07-27-2024 take 1 tablet by mouth three times daily Metronidazole 250 mg tablet Discontinued 250 mg PO THREE TIMES A DAY 30 10 0 July 17, 2024 1:00am July 26, 2024 1:00am July 27, 2024 1:08am Start: 02-11-2023 End: 03-30-2023 take 1 tablet by mouth three times daily Metronidazole 500 mg tablet Discontinued 500 mg PO THREE TIMES A DAY 30 0 February 11, 2023 12:00am March 30, 2023 6:33pm MULTI-VITAMIN ORAL (19 sources) MULTI-VITAMIN OR AL Take by mouth. Active MULTI-VITAMIN OR AL Take by mouth. 0 Active Comment on above: Take by mouth. nystatin [id number] unt/ml topical cream (2 sources) Polyene Antifungal Start: 8 nystatin (MYCOSTATIN) [id number] UNIT/GM cream Indications: Vaginal irritation Apply topically 2 times daily. 1 Tube 0 05/20/2018 Active traZODone hydrochloride 50 mg oral tablet (1 source) Serotonin Reuptake Inhibitor Start: 4 take 1 tablet by mouth at bedtime Trazodone 50 mg tablet Active 50 mg PO AT BEDTIME 90 3 July 17, 2024 1:00am sleep UNABLE TO FIND (2 sources) Start: 8 take 1.5 mg by mouth once daily, then take 5 mg by mouth, then take 1.5 mg by mouth UNABLE TO FIND Take 1.5 mg by mouth daily Compounded Prescription (Triestrogen 5mg/ Testosterone 1.5mg) 0 04/22/2018 Active Completed/Discontinued Medications Medication Drug Class(es) Dates Sig (Normalized) Sig (Original) [id number] actuat albuterol 0.09 mg/actuat metered dose inhaler (5 sources) beta2-Adrenergic Agonist Start: 10-08-2022 End: 11-10-2023 Albuterol Sulfate (Ventolin Hfa) 90 mcg/actuation HFA aerosol inhaler Discontinued 2 NMA INHALATION Q4H as needed for SOB 6.7 90 3 October 08, 2022 1:00am November 10, 2023 6:22pm Start: 10-08-2022 take 1 puff(s) by in halation every four hours Albuterol Sulfate (Ventolin Hfa) 90 mcg/actuation HFA aerosol inhaler Active 2 PUFF INHALATION Q4H 6.7 90 October 08, 2022 1:00am azithromycin 250 mg oral tablet (17 sources) Macrolide Antimicrobial Start: 10-11-2024 End: 10-16-2024 take 2 tablets by mouth once daily, then take 1 tablet by mouth once daily at mealtime Azithromycin 250 mg tablet Discontinued 250 mg PO daily 6 5 0 October 11, 2024 12:00am October 15, 2024 12:00am October 16, 2024 12:12am 2 po qd for 1 day then 1 po qd for 4 days with food or after eating Start: 01-27-2023 End: 02-01-2023 take 2 tablets by mouth once daily, then take 1 tablet by mouth once daily at mealtime Azithromycin 250 mg tablet Discontinued 250 mg PO daily 6 5 0 January 27, 2023 12:00am January 31, 2023 12:00am February 01, 2023 12:03am 2 po qd for 1 day then 1 po qd for 4 days with food or after eating Start: 10-08-2022 End: 10-13-2022 take 2 tablets by mouth once daily, then take 1 tablet by mouth once daily at mealtime Azithromycin 250 mg tablet Discontinued 250 mg PO daily 6 5 0 October 08, 2022 1:00am October 12, 2022 12:00am October 13, 2022 12:04am 2 po qd for 1 day then 1 po qd for 4 days with food or after eating Start: 04-13-2022 End: 04-18-2022 take 2 tablets by mouth once daily, then take 1 tablet by mouth once daily at mealtime Azithromycin 250 mg tablet Discontinued 250 mg PO daily 6 5 0 April 13, 2022 12:00am April 17, 2022 12:00am April 18, 2022 12:06am 2 po qd for 1 day then 1 po qd for 4 days with food or after eating Start: 06-08-2018 azithromycin ( ZITHROMAX Z-EMMETT) 250 MG tablet Indications: Sinobronchitis Take 2 tablets (500 mg) on Day 1, and then take 1 tablet (250 mg) on days 2 through 5. 1 packet 0 06/08/2018 Active cefdinir 300 mg oral capsule (12 sources) Cephalosporin Antibacterial Start: 10-01-2022 End: 10-20-2022 take 1 capsule by mouth twice daily Cefdinir 300 mg capsule Discontinued 300 mg PO TWICE A DAY October 01, 2022 7:54pm October 20, 2022 11:45am Start: 03-28-2021 End: 01-13-2022 take 1 capsule by mouth twice daily Cefdinir 300 mg capsule Discontinued 300 mg PO TWICE A DAY March 28, 2021 12:00am January 13, 2022 6:21pm celecoxib 200 mg oral capsule (1 source) Nonsteroidal Anti-inflammatory Drug Start: 03-30-2024 End: 10-11-2024 take 1 capsule by mouth twice daily Celecoxib (Celebrex) 200 mg capsule Discontinued 200 mg PO TWICE A DAY 180 March 30, 2024 12:00am October 11, 2024 4:37pm clarithromycin 500 mg oral tablet (15 sources) Macrolide Antimicrobial Start: 12-10-2022 End: 02-11-2023 take 1 tablet by mouth twice daily Clarithromycin 500 mg tablet Discontinued 500 mg PO TWICE A DAY 20 December 10, 2022 5:23pm February 11, 2023 8:09pm Start: 10-19-2022 End: 11-03-2022 take 1 tablet by mouth twice daily Clarithromycin 500 mg tablet Discontinued 500 mg PO TWICE A DAY 20 October 19, 2022 12:00am November 03, 2022 8:11am Start: 09-02-2018 End: 12-28-2018 take 1 tablet by mouth twice daily Clarithromycin 500 mg tablet Discontinued 500 mg PO TWICE A DAY 20 September 02, 2018 1:00am December 28, 2018 5:19pm doxycycline hyclate 100 mg oral tablet (7 sources) Tetracycline-class Drug Start: 03-13-2019 End: 09-15-2019 take 1 tablet by mouth twice daily Doxycycline Hyclate 100 mg tablet Discontinued 100 mg PO TWICE A DAY 28 March 13, 2019 12:00am September 15, 2019 2:04pm DULoxetine 30 mg delayed release oral capsule (3 sources) Serotonin and Norepinephrine Reuptake Inhibitor Start: 03-09-2024 End: 10-11-2024 take 1 capsule by mouth once daily Duloxetine 30 mg capsule,delayed release(DR/EC) Discontinued 30 mg PO daily 90 July 17, 2024 9:07pm October 11, 2024 4:38pm take 1 capsule by mouth once andres ly DULoxetine (CYMBALTA) 20 mg capsule Take 20 mg by mouth once daily. 0 Active Comment on above: Take 20 mg by mouth once daily. furosemide 20 mg oral tablet (3 sources) Loop Diuretic Start: 01-27-2023 End: 02-06-2023 take 1 tablet by mouth every other day Furosemide 20 mg tablet Discontinued 20 mg PO every other day 5 10 0 January 27, 2023 12:00am February 05, 2023 12:00am February 06, 2023 12:10am gadobutrol (GADAVIST) injection 2 mL (1 source) Start: 01-03-2020 End: 01-03-2020 gadobutrol (GADAVIST) injection 2 mL iopamidol (ISOVUE-300) 61 % injection 25 mL (2 sources) Start: 01-15-2020 End: 01-15-2020 iopamidol (ISOVUE-300) 61 % injection 25 mL Start: 01-03-2020 End: 01-03-2020 iopamidol (ISOVUE-300) 61 % injection 25 mL iopamidol (Isovue-370) 76 % injection 75 mL (2 sources) Start: 11-30-2024 End: 11-30-2024 take 75 mL intravenously once as needed 75 mL, IntraVENous, IMG once PRN, contrast, Starting on Suki 11/30/24 at 1120, For 1 dose levothyroxine sodium 0.15 mg oral tablet (20 sources) l-Thyro xine Start: 01-14-2022 End: 07-18-2024 take 1 tablet by mouth once daily Levothyroxine 150 mcg tablet Discontinued 150 ug PO DAILY 90 0 January 22, 2022 10:22am July 29, 2022 10:01am Start: 05-27-2018 End: 11-21-2018 take 1 tablet by mouth once daily Levothyroxine (Synthroid) 150 mcg tablet Discontinued 150 ug PO DAILY May 27, 2018 12:00am November 21, 2018 3:13pm Start: 03-14-2018 levothyroxine (SYNTHROID) 137 MCG tablet Indications: Hypothyroidism, unspecified type 1 tablet 6 days per week and 0.5 tablet on day 7 90 tablet 1 03/14/2018 Active Start: 12-13-2015 End: 01-14-2022 take 1 tablet by mouth once daily Levothyroxine 137 mcg tablet Discontinued 137 ug PO DAILY 90 3 November 24, 2018 3:10pm October 20, 2019 1:08pm Comment on above: Take 137 mcg by mout h once daily. meclizine hydrochloride 12.5 mg oral tablet (1 source) Antiemetic Start: End: take 1 tablet by mouth three times daily as needed for dizziness Meclizine 12.5 mg tablet Discontinued 12.5 mg PO THREE TIMES A DAY as needed for dizziness 60 6 November 10, 2023 12:00am July 17, 2024 8:41pm modafinil 200 mg oral tablet (6 sources) Sympathomimetic-like Agent Start: End: take 1 tablet by mouth once daily Modafinil (Provigil) 200 mg tablet Discontinued 200 mg PO DAILY 90 0 July 29, 2022 1:00am December 10, 2022 5:20pm mometasone furoate 1 mg/ml topical cream (20 sources) Corticosteroid Start: End: Mometasone 0.1 % cream Discontinued 1 NMA TOPICAL DAILY 45 8 September 16, 2020 4:31pm January 13, 2022 6:25pm Start: 10-19-2019 End: 09-16-2020 Mometasone 0.1 % cream Disco ntinued 1 NMA TOPICAL DAILY 45 8 October 19, 2019 5:00pm September 16, 2020 4:31pm Start: 12-28-2018 End: 01-13-2022 Mometasone 0.1 % cream Activ e 1 NMA TOPICAL DAILY 45 8 January 13, 2022 6:25pm Start: 12-28-2018 End: 10-19-2019 Mometasone 0.1 % cream Disco ntinued 1 NMA TOPICAL DAILY 45 8 December 28, 2018 12:00am October 19, 2019 5:00pm Start: 03-14-2018 mometasone (EL MELISSA) 0.1 % cream Apply topically daily. 45 g 0 03/14/2018 Active 1 ml morphine sulfate 4 mg/ml cartridge (2 sources) Opioid Agonist Start: 11-30-2024 End: 11-30-2024 take 1 dose by mouth every hour 4 mg, IntraVENous, Once, On Suki 11/30/24 at 1115, For 1 dose, If oral and injectable narcotics ordered, use oral first and only use injectable if oral is ineffective or cannot take oral. Do Not give oral and injectable within 1 hour of each other unless specifically ordered. 2 ml ondansetron 2 mg/ml injection (5 sources) Serotonin-3 Receptor Antagonist Start: 02-15-2025 End: 02-15-2025 4 mg, intravenous, Once, On Suki 02/15/25 at 1850, For 1 dose, When administering via IV Push, administer over 3-5 minutes. Start: 11-30-2024 End: 11-30-2024 4 mg, IntraVENous, Once, On Wed11/30/24 at 1115, For 1 dose Start: 02-11-2023 End: 03-30-2023 take 1 tablet by mouth every eight hours Ondansetron Hcl 4 mg tablet Discontinued 4 mg PO Q8H 30 8 February 11, 2023 12:00am March 30, 2023 6:33pm PARoxetine hydrochloride 10 mg oral tablet (5 sources) Serotonin Reuptake Inhibitor Start: 12-10-2022 End: 11-10-2023 take 1 tablet by mouth once daily Paroxetine Hcl 10 mg tablet Discontinued 10 mg PO DAILY 90 3 March 30, 2023 6:43pm November 10, 2023 6:21pm predniSONE 10 mg oral tablet (7 sources) Start: 10-25-2018 End: 11-02-2018 take 2 tablets by mouth twice daily as needed, then take 1 tablet by mouth twice daily as needed, then take 0.5 tablet by mouth once daily as needed Prednisone 10 mg tablet Discontinued 20 mg PO TWICE A DAY as needed for R shoulder pain 30 4 1 October 25, 2018 12:00am November 01, 2018 12:00am November 02, 2018 12:08am 2 po bid 4D,1 po bid for 4 D, 1 po qd for 4D 1/2 po qd for2 D Start: 10-25-2018 End: 11-02-2018 Prednisone Discontinued 20 M G PO TWICE A DAY 30 4 October 25, 2018 12:00am November 02, 2018 12:08am 2 po bid 4D,1 po bid for 4 D, 1 po qd for 4D 1/2 po qd for2 D 1000 ml sodium chloride 9 mg/ml injection (1 source) Start: 02-15-2025 End: 02-15-2025 1,000 mL, intravenous, at 999 mL/hr, Administer over 1 Hours, Once, On Suki 02/15/25 at 1925, For 1 dose vitamin b12 0.5 mg oral tablet (7 sources) Vitamin B12 Start: 05-27-2018 End: 06-11-2020 take 1 tablet by mouth once daily Cyanocobalamin (Vitamin B-12) 500 mcg tablet Discontinued 500 ug PO DAILY May 27, 2018 12:00am June 11, 2020 6:26pm Problems Active Problems Problem Classification Problem Date Documented Da te Episodic/Chronic Abdominal pain (20 sources) Unspecified abdominal pain; Translations: [Left inguinal pain] Onset: 09-22-2017 06-24-2020 Episodic Abdominal pain (2 sources) Pelvic and perineal pain; Translations: [Pelvic and perineal pain] Onset: 09-22-2017 Anal and rectal conditions (1 source) Rectal pain; Translations: [Other specified diseases of anus and rectum] 01-09-2025 Episodic Anxiety disorders (4 sources) Anxiety; Translations: [Anxiety disorder, unspecified] Onset: 09-27-2017 09-27-2017 Chronic Chronic obstructive pulmonary disease and bronchiectasis (5 sources) Bronchitis; Translations: [Bronchitis, not specified as acute or chronic] 10-19-2022 Episodic Conditions associated with dizziness or vertigo (3 sources) Vertigo; Translations: [Dizziness and giddiness] 01-27-2023 Episodic Diabetes mellitus with complications (2 sources) Hyperglycemia due to type 2 diabetes mellitus; Translations: [Type 2 diabetes mellitus with hyperglycemia] Onset: 08-18-2024 07-16-2023 Chronic Diabetes mellitus without complication (14 sources) Type 2 diabetes mellitus without complication; Translations: [Type 2 diabetes mellitus without complications] Onset: 01-11-2024 01-11-2024 Chronic Disorders of lipid metabolism (18 sources) Hyperlipidemia; Translations: [Hyperlipidemia, unspecified] Onset: 02-12-2016 06-20-2020 Chronic Diverticulosis and diverticulitis (20 sources) Diverticulitis; Translations: [Diverticulitis of intestine, part unspecified, without perforation or abscess without bleeding] Onset: 01-17-2022 01-17-2022 Chronic Essential hypertension (20 sources) Essential (primary) hypertension; Translations: [Hypertensive disorder] Onset: 05-20-2015 05-20-2015 Chronic Fluid and electrolyte disorders (8 sources) Hypokalemia; Translations: [Hypokalemia] Onset: 12-17-2018 Resolved: 12-18-2018 12-28-2018 Episodic Immunizations and screening for infectious disease (7 sources) Contact with or exposure to other viral diseases; Translations: [Exposure to COVID-19 virus] 08-13-2021 Episodic Intestinal obstruction without hernia (7 sources) Intestinal obstruction; Translations: [Unspecified intestinal obstruction, unspecified as to partial versus complete obstruction] 01-15-2022 Episodic Malaise and fatigue (7 sources) Fatigue; Translations: [Other fatigue] 06-12-2020 Episodic Menopausal disorders (4 sources) Menopausal and female climacteric states; Translations: [Menopausal flushing] Onset: 03-07-2018 12-10-2022 Chronic Mycoses (7 sources) Dermal mycosis; Translations: [Superficial mycosis, unspecified] 01-13-2022 Episodic Nutritional deficiencies (14 sources) Vitamin D deficiency; Translations: [Vitamin D deficiency, unspecified] 12-28-2018 Chronic Nutritional deficiencies (7 sources) Vitamin B deficiency; Translations: [Vitamin B deficiency, unspecified] 01-13-2022 Episodic Other ear and sense organ disorders (7 sources) Ear pressure sensation; Translations: [Other specified disorders of ear, unspecified ear] 05-28-2018 Episodic Other ear and sense organ disorders (7 sources) Bilateral hearing loss; Translations: [Impacted cerumen, bilateral] 05-28-2018 Episodic Other ear and sense organ disorders (7 sources) Otitis externa; Translations: [Acute reactive otitis externa, unspecified ear] 09-15-2019 Episodic Other ear and sense organ disorders (7 sources) Impacted cerumen; Translations: [Impacted cerumen, right ear] 09-15-2019 Episodic Other gastrointestinal disorders (1 source) Constipation; Translations: [Constipation, unspecified] 01-09-2025 Episodic Other inflammatory condition of skin (7 sources) Seborrheic dermatitis; Translations: [Seborrheic dermatitis, unspecified] 10-19-2019 Episodic Other lower respiratory disease (6 sources) Cough; Translations: [Cough] 04-13-2022 Episodic Other non-traumatic joint disorders (7 sources) Joint pain; Translations: [Pain in unspecified joint] 03-13-2019 Episodic Other non-traumatic joint disorders (4 sources) Shoulder pain; Translations: [Pain in right shoulder] 10-25-2018 Episodic Other non-traumatic joint disorders (8 sources) Hip pain; Translations: [Pain in left hip] 03-28-2021 Episodic Other non-traumatic joint disorders (3 sources) Pain in right shoulder; Translations: [Right shoulder pain] 10-25-2018 Episodic Other nutritional; endocrine; and metabolic disorders (18 sources) Obese class I; Translations: [Obesity, unspecified] Onset: 12-18-2018 06-24-2020 Chronic Other nutritional; endocrine; and metabolic disorders (3 sources) Obese class I; Translations: [Obesity, Class I, BMI 30-34.9] Onset: 12-18-2018 12-18-2018 Other upper respiratory infections (7 sources) Maxillary sinusitis; Translations: [Chronic maxillary sinusitis] 09-02-2018 Chronic Other upper respiratory infections (5 sources) Acute maxillary sinusitis; Translations: [Acute maxillary sinusitis, unspecified] 10-01-2022 Episodic Otitis media and related conditions (20 sources) Otitis media; Translations: [Otitis media, unspecified, left ear] 10-01-2022 Episodic Peritonitis and intestinal abscess (1 source) Infectious disease of abdomen; Translations: [Peritonitis, unspecified] Episodic Residual codes; unclassified (11 sources) Obstructive sleep apnea syndrome; Translations: [Obstructive sleep apnea (adult) (pediatric)] Onset: 04-07-2011 03-08-2017 Chronic Residual codes; unclassified (1 source) Menopause present; Translations: [Menopause] Chronic Residual codes; unclassified (20 sources) Sleep apnea; Translations: [Sleep apnea, unspecified] Onset: 02-12-2016 06-24-2020 Chronic Residual codes; unclassified (6 sources) Hypersomnia; Translations: [Hypersomnia, unspecified] 07-29-2022 Chronic Residual codes; unclassified (5 sources) Obstructive sleep apnea (adult) (pediatric); Translations: [Obstructive sleep apnea (adult)(pediatric)] Onset: 01-11-2024 11-03-2022 Chronic Residual codes; unclassified (1 source) Sleep apnea, unspecified; Translations: [Unspecified sleep apnea] 02-23-2023 Chronic Residual codes; unclassified (2 sources) Apnea; Translations: [Obstructive sleep apnea (adult) (pediatric)] Onset: 03-08-2017 05-14-2022 Chronic Residual codes; unclassified (7 sources) Submandibular salivary gland swelling; Translations: [Edema, unspecified] 03-28-2021 Episodic Residual codes; unclassified (7 sources) History of hernia repair; Translations: [Other specified postprocedural states] 03-31-2021 Episodic Residual codes; unclassified (7 sources) Non-menopausal hot flash; Translations: [Flushing] 06-12-2020 Episodic Residual codes; unclassified (1 source) Family history of polyp of colon; Translations: [Family history of colonic polyps] 02-10-2023 Episodic Residual codes; unclassified (1 source) Family history of colonic polyps; Translations: [Family history of colonic polyps] Onset: 07-23-2023 Episodic Residual codes; unclassified (1 source) Tobacco user; Translations: [Tobacco use] 08-11-2024 Episodic Screening and history of mental health and substance abuse codes (8 sources) Tobacco smoking behavior - finding; Translations: [Personal history of nicotine dependence] 11-03-2022 Episodic Comment on above: She has rhonchi on e xam and likely has mild to moderate COPD. She is not ready to quit smoking, cigarettes play an important role for her in controlling her anxiety.Pulmonary function test before next visitWe will discuss smoking cessation and medications for possible COPD next visit. Spondylosis; intervertebral disc disorders; other back problems (7 sources) Neck pain; Translations: [Cervicalgia] 10-25-2018 Episodic Substance-related disorders (20 sources) Nicotine dependence, cigarettes, uncomplicated; Translations: [Nicotine dependence] Onset: 09-22-2017 12-18-2018 Chronic Syncope (3 sources) Syncope; Translations: [Syncope and collapse] Onset: 02-15-2025 02-15-2025 Episodic Thyroid disorders (20 sources) Hypothyroidism, unspecified; Translations: [Hypothyroidism] Onset: 05-20-2015 05-20-2015 Chronic Unclassified (2 sources) Sleep apnea, unspecified; Translations: [Sleep apnea, unspecified] Onset: 09-22-2017 Unclassified (1 source) Unknown / UNK(Unknown) Onset: 03-07-2018 Past or Other Problems Problem Classification Problem Date Documented Da te Episodic/Chronic Abdominal hernia (18 sources) Incisional hernia; Translations: [Incisional hernia without obstruction or gangrene] Onset: 06-24-2020 06-24-2020 Episodic Allergic reactions (6 sources) Allergy status to other drugs, medicaments and biological substances status; Translations: [Allergy status to narcotic agent status] Onset: 09-22-2017 Episodic Inflammatory diseases of female pelvic organs (2 sources) Female pelvic inflammatory disease, unspecified; Translations: [Female pelvic inflammatory disease, unspecified] Onset: 09-22-2017 Episodic Mood disorders (8 sources) Mood disorders Onset: 01-11-2024 01-11-2024 Nonspecific chest pain (1 source) Precordial pain; Translations: [Precordial pain] Onset: 12-17-2018 Resolved: 12-18-2018 12-18-2018 Episodic Other aftercare (2 sources) 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; Translations: [MCFP (current) use of aspirin] Onset: 09-22-2017 Episodic Other circulatory disease (1 source) Low blood pressure; Translations: [Hypotension, unspecified] Onset: 12-17-2018 Resolved: 12-18-2018 12-18-2018 Episodic Other ear and sense organ disorders (2 sources) Dermatitis of external auditory canal; Translations: [Dermatitis of both ear canals] Onset: 03-14-2018 03-14-2018 Episodic Other ear and sense organ disorders (2 sources) Bilateral dermatitis of external ear canals; Translations: [Acute eczematoid otitis externa, bilateral] Onset: 03-14-2018 05-14-2022 Episodic Other screening for suspected conditions (not mental disorders or infectious disease) (20 sources) Patient encounter status; Translations: [Encounter for screening mammogram for malignant neoplasm of breast] Onset: 12-17-2018 Resolved: 12-18-2018 Episodic Unclassified (4 sources) Acquired absence of other specified parts of digestive tract; Translations: [Acquired absence of both cervix and uterus] Onset: 09-22-2017 Episodic Unclassified (8 sources) Onset: 01-11-2024 01-11-2024 Results Test Name Value Interpretation Reference Range Facility CBC W Auto Differential pane l (Bld)on 02-15-2025 Basophils (Bld) [#/Vol] 0.08 10*3/uL [facility] Basophils/100 WBC (Bld) 1.3 % 0.0 - 2.0 % [facility] Eosinophils (Bld) [#/Vol] 0.21 10*3/uL [facility] Eosinophils/100 WBC (Bld) 3.4 % 0.0 - 6.0 % [facility] Erythrocyte distribution width (RBC) [Ratio] 13.3 % 11.5 - 14.5 % [facility] Hematocrit (Bld) [Volume fraction] 39.2 % 36.0 - 46.0 % [facility] Hemoglobin (Bld) [Mass/Vol] 14.3 g/dL 12.0 - 16.0 g/dL [facility] Immature granulocytes (Bld) [#/Vol] 0.01 10*3/uL [facility] Immature granulocytes/100 WBC (Bld) 0.2 % 0.0 - 0.9 % [facility] Comment on above: Immature Granulocyte Count (IG) includes promyelocytes, myelocytes and metamyelocytes but does not include bands. Percent differential counts (%) should be interpreted in the context of the absolute cell counts (cells/UL). Interpretation and review of laboratory results Abnormal [facility] Lymphocytes (Bld) [#/Vol] 1.59 10*3/uL [facility] Lymphocytes/100 WBC (Bld) 25.9 % 13.0 - 44.0 % [facility] MCH (RBC) [Entitic mass] 31.4 pg 26.0 - 34.0 pg [facility] MCHC (RBC) [Mass/Vol] 36.5 g/dL High 32.0 - 36.0 g/dL [facility] MCV (RBC) [Entitic vol] 86 fL 80 - 100 fL [facility] Monocytes (Bld) [#/Vol] 0.48 10*3/uL [facility] Monocytes/100 WBC (Bld) 7.8 % 2.0 - 10.0 % [facility] Neutrophils (Bld) [#/Vol] 3.78 10*3/uL [facility] Comment on above: Percent differential counts (%) should be interpreted in the context of the absolute cell counts (cells/uL). Neutrophils/100 WBC (Bld) 61.4 % 40.0 - 80.0 % [facility] Nucleated RBC/100 WBC (Bld) [Ratio] 0.0 % [facility] Platelets (Bld) [#/Vol] 302 10*3/uL [facility] RBC (Bld) [#/Vol] 4.56 10*6/uL [facility] WBC (Bld) [#/Vol] 6.2 10*3/uL [facility] Basophils (Bld) [#/Vol] 0.08 x10*3/uL Normal 0.00-0.10 [facility] Comment on above: Performed By: #### 5 7021-8 #### MORGAN BAEZ ([id number]) [facility] ([facility]) [address] [place] [address] 51096 Basophils/100 WBC (Bld) 1.3 % Normal 0.0-2.0 [facility] Comment on above: Performed By: #### 5 7021-8 #### MORGAN BAEZ ([id number]) [facility] ([facility]) [address] [place] [address] 28010 Eosinophils (Bld) [#/Vol] 0.21 x10*3/uL Normal 0.00-0.70 [facility] Comment on above: Performed By: #### 5 7021-8 #### MORGAN BAEZ ([id number]) [facility] ([facility]) [address] [place] [address] 89511 Eosinophils/100 WBC (Bld) 3.4 % Normal 0.0-6.0 [facility] Comment on above: Performed By: #### 5 7021-8 #### MORGAN BAEZ ([id number]) [facility] ([facility]) [address] [place] [address] 90991 Erythrocyte distribution width (RBC) [Ratio] 13.3 % Normal 11.5-14.5 [facility] Comment on above: Performed By: #### 5 7021-8 #### MORGAN BAEZ ([id number]) [facility] ([facility]) [address] [place] [address] 22868 Hematocrit (Bld) [Volume fraction] 39.2 % Normal 36.0-46.0 [facility] Comment on above: Performed By: #### 5 7021-8 #### MORGAN BAEZ ([id number]) [facility] ([facility]) [address] [place] [address] 10423 Hemoglobin (Bld) [Mass/Vol] 14.3 g/dL Normal 12.0-16.0 [facility] Comment on above: Performed By: #### 5 7021-8 #### MORGAN BAEZ ([id number]) [facility] ([facility]) [address] [place] [address] 58701 Immature granulocytes (Bld) [#/Vol] 0.01 x10*3/uL Normal 0.00-0.70 [facility] Comment on above: Performed By: #### 5 7021-8 #### MORGAN BAEZ ([id number]) [facility] ([facility]) [address] [place] [address] 19668 Immature granulocytes/100 WBC (Bld) 0.2 % Normal 0.0-0.9 [facility] Comment on above: Result Comment: Jannet ture Granulocyte Count (IG) includes promyelocytes, myelocytes and metamyelocytes but does not include bands. Percent differential counts (%) should be interpreted in the context of the absolute cell counts (cells/UL). Performed By: #### 5 7021-8 #### MORGAN BAEZ ([id number]) [facility] ([facility]) [address] [place] [address] 58101 Lymphocytes (Bld) [#/Vol] 1.59 x10*3/uL Normal 1.20-4.80 [facility] Comment on above: Performed By: #### 5 7021-8 #### MORGAN BAEZ ([id number]) [facility] ([facility]) [address] [place] [address] 30513 Lymphocytes/100 WBC (Bld) 25.9 % Normal 13.0-44.0 [facility] Comment on above: Performed By: #### 5 7021-8 #### MORGAN BAEZ ([id number]) [facility] ([facility]) [address] [place] [address] 20249 MCH (RBC) [Entitic mass] 31.4 pg Normal 26.0-34.0 [facility] Comment on above: Performed By: #### 5 7021-8 #### MORGAN BAEZ ([id number]) [facility] ([facility]) [address] [place] [address] 92321 MCHC (RBC) [Mass/Vol] 36.5 g/dL High 32.0-36.0 [facility] Comment on above: Performed By: #### 5 7021-8 #### MORGAN BAEZ ([id number]) [facility] ([facility]) [address] [place] [address] 65278 MCV (RBC) [Entitic vol] 86 fL Normal 80-100 [facility] Comment on above: Performed By: #### 5 7021-8 #### MORGAN BAEZ ([id number]) [facility] ([facility]) [address] [place], [place] [phone] Monocytes (Bld) [#/Vol] 0.48 x10*3/uL Normal 0.10-1.00 [facility] Comment on above: Performed By: #### 5 7021-8 #### MORGAN BAEZ ([id number]) [facility] ([facility]) [address] [place] [address] 54507 Monocytes/100 WBC (Bld) 7.8 % Normal 2.0-10.0 [facility] Comment on above: Performed By: #### 5 7021-8 #### MORGAN BAEZ ([id number]) [facility] ([facility]) [address] [place] [address] 24375 Neutrophils (Bld) [#/Vol] 3.78 x10*3/uL Normal 1.20-7.70 [facility] Comment on above: Result Comment: Perc ent differential counts (%) should be interpreted in the context of the absolute cell counts (cells/uL). Performed By: #### 5 7021-8 #### MORGAN BAEZ ([id number]) [facility] ([facility]) [address] [place] [address] 14493 Neutrophils/100 WBC (Bld) 61.4 % Normal 40.0-80.0 [facility] Comment on above: Performed By: #### 5 7021-8 #### MORGAN BAEZ ([id number]) [facility] ([facility]) [address] [place] [address] Nucleated RBC/100 WBC (Bld) [Ratio] 0.0 /100 WBCs Normal 0.0-0.0 [facility] Comment on above: Performed By: #### 5 7021-8 #### MORGAN BAEZ ([id number]) [facility] ([facility]) [address] [place] [address] 68326 Platelets (Bld) [#/Vol] 302 x10*3/uL Normal 150-450 [facility] Comment on above: Performed By: #### 5 7021-8 #### MORGAN BAEZ ([id number]) [facility] ([facility]) [address] [place] [address] 84585 RBC (Bld) [#/Vol] 4.56 x10*6/uL Normal 4.00-5.20 [facility] Comment on above: Performed By: #### 5 7021-8 #### MORGAN BAEZ ([id number]) [facility] ([facility]) [address] [place] [address] 93722 WBC (Bld) [#/Vol] 6.2 x10*3/uL Normal 4.4-11.3 [facility] Comment on above: Performed By: #### 5 7021-8 #### MORGAN BAEZ ([id number]) [facility] ([facility]) [address] [place] [address] 03129 Comprehensive metabolic 2000 panelon 02-15-2025 Albumin BCP dye [Mass/Vol] 4.3 g/dL 3.4 - 5.0 g/dL [facility] ALP [Catalytic activity/Vol] 66 U/L 33 - 136 U/L [facility] ALT With P-5'-P [Catalytic activity/Vol] 44 U/L 7 - 45 U/L [facility] Comment on above: Patients treated wit h Sulfasalazine may generate falsely decreased results for ALT. Anion gap [Moles/Vol] 13 mmol/L 10 - 20 mmol/L [facility] AST With P-5'-P [Catalytic activity/Vol] 24 U/L 9 - 39 U/L [facility] Bilirubin [Mass/Vol] 0.5 mg/dL 0.0 - 1 .2 mg/dL [facility] Calcium [Mass/Vol] 9.4 mg/dL 8.6 - 10. 3 mg/dL [facility] Chloride [Moles/Vol] 103 mmol/L 98 - 10 7 mmol/L [facility] CO2 [Moles/Vol] 23 mmol/L 21 - 32 mmol/L [facility] Creatinine [Mass/Vol] 0.79 mg/dL 0.50 - 1.05 mg/dL [facility] GFR/1.73 sq M.predicted among non-blacks MDRD (S/P/Bld) [Vol rate/Area] 84 mL/min/{1.73_m2} - PINF [facility] Comment on above: Calculations of jean-claude mated GFR are performed using the 2020 CKD-EPI Study Refit equation without the race variable for the IDMS-Traceable creatinine methods. https://jasn.asnjournals.org/content/early//ASN.2020 244117 Glucose [Mass/Vol] 312 mg/dL High 74 - 99 mg/dL [facility] Interpretation and review of laboratory results Abnormal [facility] Potassium [Moles/Vol] 3.4 mmol/L Low 3.5 - 5.3 mmol/L [facility] Protein [Mass/Vol] 6.9 g/dL 6.4 - 8.2 g/dL [facility] Sodium [Moles/Vol] 136 mmol/L 136 - 145 mmol/L [facility] Urea nitrogen [Mass/Vol] 12 mg/dL 6 - 23 mg/dL [facility] Albumin BCP dye [Mass/Vol] 4.3 g/dL Normal 3.4-5.0 [facility] Comment on above: Performed By: #### 2 4323-8 #### MORGAN BAEZ ([id number]) [facility] ([facility]) [address] [place] [address] ALP [Catalytic activity/Vol] 66 U/L Normal 33-136 [facility] Comment on above: Performed By: #### 2 4323-8 #### MORGAN BAEZ ([id number]) [facility] ([facility]) [address] [place] [address] ALT With P-5'-P [Catalytic activity/Vol] 44 U/L Normal 7-45 [facility] Comment on above: Result Comment: Tiffany ents treated with Sulfasalazine may generate falsely decreased results for ALT. Performed By: #### 2 4323-8 #### MORGAN BAEZ ([id number]) [facility] ([facility]) [address] [place] [address] Anion gap [Moles/Vol] 13 mmol/L Normal 10-20 [facility] Comment on above: Performed By: #### 2 4322-8 #### MORGAN BAEZ ([id number]) [facility] ([facility]) [address] [place] [address] AST With P-5'-P [Catalytic activity/Vol] 24 U/L Normal 9-39 [facility] Comment on above: Performed By: #### 2 432-8 #### MORGAN BAEZ ([id number]) [facility] ([facility]) [address] [place] [address] Bilirubin [Mass/Vol] 0.5 mg/dL Normal 0.0-1.2 [facility] Comment on above: Performed By: #### 2 4323-8 #### MORGAN BAEZ ([id number]) [facility] ([facility]) [address] [place] [address] Calcium [Mass/Vol] 9.4 mg/dL Normal 8.6-10.3 [facility] Comment on above: Performed By: #### 2 4323-8 #### MORGAN BAEZ ([id number]) [facility] ([facility]) [address] [place] [address] Chloride [Moles/Vol] 103 mmol/L Normal 98-107 [facility] Comment on above: Performed By: #### 2 4323-8 #### MORGAN BAEZ ([id number]) [facility] ([facility]) [address] [place] [address] CO2 [Moles/Vol] 23 mmol/L Normal 21-32 [facility] Comment on above: Performed By: #### 2 432-8 #### MORGAN BAEZ ([id number]) [facility] ([facility]) [address] [place] [address] Creatinine [Mass/Vol] 0.79 mg/dL Normal 0.50-1.05 [facility] Comment on above: Performed By: #### 2 432-8 #### MORGAN BAEZ ([id number]) [facility] ([facility]) [address] [place] [address] Glomerular filtration rate/1.73 sq M.predicted 84 mL/min/1.73m*2 Normal >60 [facility] Comment on above: Result Comment: Calc ulations of estimated GFR are performed using the 2020 CKD-EPI Study Refit equation without the race variable for the IDMS-Traceable creatinine methods. https://jasn.asnjournals.org/content/early//ASN.2020 465265 Performed By: #### 2 432-8 #### MORGAN BAEZ ([id number]) [facility] ([facility]) [address] [place] [address] 58373 Glucose [Mass/Vol] 312 mg/dL High 74-99 [facility] Comment on above: Performed By: #### 2 4323-8 #### MORGAN BAEZ ([id number]) [facility] ([facility]) [address] [place] [address] 45763 Potassium [Moles/Vol] 3.4 mmol/L Low 3.5-5.3 [facility] Comment on above: Performed By: #### 2 4323-8 #### MORGAN BAEZ ([id number]) [facility] ([facility]) [facility] [place] [address] Protein [Mass/Vol] 6.9 g/dL Normal 6.4-8.2 [facility] Comment on above: Performed By: #### 2 432-8 #### MORGAN BAEZ ([id number]) [facility] ([facility]) [address] [place] [address] Sodium [Moles/Vol] 136 mmol/L Normal 136-145 [facility] Comment on above: Performed By: #### 2 4323-8 #### MORGAN BAEZ ([id number]) [facility] CENTER) [address] [place] [address] Urea nitrogen [Mass/Vol] 12 mg/dL Normal 6-23 [facility] Comment on above: Performed By: #### 2 4323-8 #### MORGAN BAEZ ([id number]) [facility] ([facility]) [address] [place] [address] ECG 12-LEADon 02-15-2025 ECG 12-LEAD Ventricular Rate 76 Atrial Rate 76 P-R Interval 172 QRS Duration 140 Q-T Interval 440 QTC Calculation(Bazett) 495 P [place] 65 R [place] 19 T [place] 127 QRS Count 13 Q Onset 209 P Onset 123 P Offset 178 T Offset 429 QTC Fredericia 475 Diagnosis Normal sinus rhythm Left bundle branch block Abnormal ECG When compared with ECG of 15-FEB-2025 07:59, (unconfirmed) Sinus rhythm has replaced Atrial fibrillation Vent. rate has decreased BY 68 BPM Left bundle branch block is now Present Normal [facility] Magnesiumon 02-15-2025 Magnesium [Mass/Vol] 1.95 mg/dL 1.60 - 2.40 mg/dL [facility] Magnesium [Mass/Vol] 1.95 mg/dL Normal 1.60-2.40 [facility] Comment on above: Performed By: #### 1 9123-9 #### MORGAN BAEZ ([id number]) [facility] ([facility]) [address] [place], [place] [id number] Magnesium [Mass/Vol]on 02-15 Interpretation and review of laboratory results Normal [facility] No Panel Informationon 02-15 [facility] Tropinin I.cardiac panel Hig h sensitivity methodon 02-15-2025 Interpretation and review of laboratory results Normal [facility] Less than 99th percentile of normal range cutoff- Female and children under 18 years old <14 ng/L; Male <21 ng/L: Negative Repeat testing should be performed if clinically indicated. Female and children under 18 years old 14-50 ng/L; Male 21-50 ng/L: Consistent with possible cardiac damage and possible increased clinical risk. Serial measurements may help to assess extent of myocardial damage. >50 ng/L: Consistent with cardiac damage, increased clinical risk and myocardial infarction. Serial measurements may help assess extent of myocardial damage. NOTE: Children less than 1 year old may have higher baseline troponin levels and results should be interpreted in conjunction with the overall clinical context. NOTE: Troponin I testing is performed using a different testing methodology at [facility] than at other [facility] Direct result comparisons should only be made within the same method. [facility] Interpretation and review of laboratory results Normal [facility] Less than 99th percentile of normal range cutoff- Female and children under 18 years old <14 ng/L; Male <21 ng/L: Negative Repeat testing should be performed if clinically indicated. Female and children under 18 years old 14-50 ng/L; Male 21-50 ng/L: Consistent with possible cardiac damage and possible increased clinical risk. Serial measurements may help to assess extent of myocardial damage. >50 ng/L: Consistent with cardiac damage, increased clinical risk and myocardial infarction. Serial measurements may help assess extent of myocardial damage. NOTE: Children less than 1 year old may have higher baseline troponin levels and results should be interpreted in conjunction with the overall clinical context. NOTE: Troponin I testing is performed using a different testing methodology at [facility] than at other [facility]. Direct result comparisons should only be made within the same method. [facility] Troponin I, High Sensitivity , Initialon 02-15-2025 Tropinin I.cardiac panel High sensitivity method 3 ng/L 0 - 13 ng/L [facility] Troponin I.cardiac panelon 0 02-15-2025 Tropinin I.cardiac panel High sensitivity method 4 ng/L Normal 0-13 [facility] Comment on above: Order Comment: Less than 99th percentile of normal range cutoff- Female and children under 18 years old <14 ng/L; Male <21 ng/L: Negative Repeat testing should be performed if clinically indicated. Female and children under 18 years old 14-50 ng/L; Male 21-50 ng/L: Consistent with possible cardiac damage and possible increased clinical risk. Serial measurements may help to assess extent of myocardial damage. >50 ng/L: Consistent with cardiac damage, increased clinical risk and myocardial infarction. Serial measurements may help assess extent of myocardial damage. NOTE: Children less than 1 year old may have higher baseline troponin levels and results should be interpreted in conjunction with the overall clinical context. NOTE: Troponin I testing is performed using a different testing methodology at [facility] than at other [facility]. Direct result comparisons should only be made within the same method. Performed By: #### 8 [id number] #### MORA SASHA ([id number]) [facility] ([facility]) [address] [place], [place] [id number] Tropinin I.cardiac panel High sensitivity method 3 ng/L Normal 0-13 [facility] Comment on above: Order Comment: Less than 99th percentile of normal range cutoff- Female and children under 18 years old <14 ng/L; Male <21 ng/L: Negative Repeat testing should be performed if clinically indicated. Female and children under 18 years old 14-50 ng/L; Male 21-50 ng/L: Consistent with possible cardiac damage and possible increased clinical risk. Serial measurements may help to assess extent of myocardial damage. >50 ng/L: Consistent with cardiac damage, increased clinical risk and myocardial infarction. Serial measurements may help assess extent of myocardial damage. NOTE: Children less than 1 year old may have higher baseline troponin levels and results should be interpreted in conjunction with the overall clinical context. NOTE: Troponin I testing is performed using a different testing methodology at [facility] than at other [facility]. Direct result comparisons should only be made within the same method. Performed By: #### 8 [id number] #### MORA SASHA ([id number]) [facility] ([facility]) [address] [place] [id number] Troponin, High Sensitivity, 1 Houron 02-15-2025 Tropinin I.cardiac panel High sensitivity method 4 ng/L 0 - 13 ng/L [facility] XR CHEST 1 VIEWon 02-15-2025 XR CHEST 1 VIEW Interpreted By: Prasanth Barbour, STUDY: XR CHEST 1 VIEW; 02/15/2025 6:58 pm INDICATION: Signs/Symptoms:syncop e. COMPARISON: None. ACCESSION NUMBER(S): [id number] ORDERING CLINICIAN: MILLY FRANCOIS FINDINGS: Slight low lung volumes. Streaky left basilar airspace opacities, likely subsegmental atelectasis. Mild diffuse interstitial prominence, likely interstitial edema. Normal heart size. No acute osseous abnormality. IMPRESSION: 1. Mild diffuse interstitial prominence, likely interstitial edema. 2. Streaky left basilar airspace opacities, likely subsegmental atelectasis. Signed by: Prasanth Barbour 02/15/2025 7:27 PM Dictation workstation: [id number] [facility] XR Chest Single viewon 02-15 1. Mild diffuse interstitial prominence, likely interstitial edema. 2. Streaky left basilar airspace opacities, likely subsegmental atelectasis. Signed by: Prasanth Barbour 02/15/2025 7:27 PM Dictation workstation: [id number] MMODAL Interpreted By: Prasanth Barbour, STUDY: XR CHEST 1 VIEW; 02/15/2025 6:58 pm INDICATION: Signs/Symptoms:syncop e. COMPARISON: None. ACCESSION NUMBER(S): [id number] ORDERING CLINICIAN: MILLY FRANCOIS FINDINGS: Slight low lung volumes. Streaky left basilar airspace opacities, likely subsegmental atelectasis. Mild diffuse interstitial prominence, likely interstitial edema. Normal heart size. No acute osseous abnormality. [facility]AL Prasanth Barbour, DO - 02/15/2025 Interpreted By: Prasanth Barbour, STUDY: XR CHEST 1 VIEW; 02/15/2025 6:58 pm INDICATION: Signs/Symptoms:syncop e. COMPARISON: None. ACCESSION NUMBER(S): [id number] ORDERING CLINICIAN: MILLY FRANCOIS FINDINGS: Slight low lung volumes. Streaky left basilar airspace opacities, likely subsegmental atelectasis. Mild diffuse interstitial prominence, likely interstitial edema. Normal heart size. No acute osseous abnormality. IMPRESSION: 1. Mild diffuse interstitial prominence, likely interstitial edema. 2. Streaky left basilar airspace opacities, likely subsegmental atelectasis. Signed by: Prasanth Barbour 02/15/2025 7:27 PM Dictation workstation: [id number] [facility] Work Phone: Radiology Study observation (narrative) [facility] Work Phone: XR Chest Single viewOrdered By: Prasanth Barbour on 02-15-2025 [facility] Work Phone: CBC W/Diff, Automatedon 07- REACTIVE LYMPH RARE Normal [facility] Comment on above: Performed By: #### L [id number], L500.4050, L100.0100 #### [facility] [address] [place], [address] PLT EST SLT DEC Normal ADEQ [facility] Comment on above: Performed By: #### L [id number], [id number], L100.0100 #### [facility] [address] [place], [address] Hemoglobin A1con 02-02-2025 HbA1c (Bld) [Mass fraction] 7.6 % High <=5.6 [facility] Comment on above: Result Comment: Norm al < 5.7 % Prediabetic 5.7 - 6.4 % Diabetic >or= 6.5 % Please note range changes. Performed By: #### L [id number], L500.4050, L100.0100 #### [facility] [address] [place], [address] Absolute lymphocyte countOrd ered By: Glendy Anderson on 02-01-2025 Lymphocytes Auto (Unsp spec) [#/Vol] 0.68 10*3/uL Low 0.83-4.51 [facility] Absolute neutrophil countOrd ered By: Glendy Anderson on 02-01-2025 Neutrophils (Bld) [#/Vol] 2.1 10*3/uL 2.0-7.7 [facility] Anion gap in Serum or Plasma Ordered By: Glendy Anderson on 02-01-2025 Anion gap [Moles/Vol] 13 mmol/L 5-15 [facility] Automated lymphocyte count a s percentage of total leukocytesOrdered By: Glendy Anderson on 02-01-2025 Lymphocytes/100 WBC Auto (Unsp spec) 21.1 % 19-41 [facility] BUN/creatinine ratioOrdered By: Glendy Anderson on 02-01-2025 Urea nitrogen/Creatinine [Mass ratio] 20.1 mg/mg High 10-20 [facility] Basophil percentageOrdered B y: Glendy Anderson on 02-01-2025 Basophils/100 WBC (Bld) 1.2 % High 0-1 [facility] Bilirubin, totalOrdered By: Glendy Anderson on 02-01-2025 Bilirubin [Mass/Vol] 0.40 mg/dL 0.00-1.30 [facility] Carbon dioxide, total [Moles /volume] in Central venous bloodOrdered By: Glendy Anderson on 02-01-2025 CO2 [Moles/Vol] 23.4 mmol/L 21.0-32.0 [facility] Chloride assayOrdered By: Do ra Anderson on 02-01-2025 Chloride [Moles/Vol] 101 mmol/L 98-108 [facility] Comprehensive Metabolic Prof ilon 02-01-2025 A/G UNABLE TO CALCULATE Low 0.9-2.[address] [facility] Comment on above: Performed By: #### L [id number], [id number], L100.0100 #### [facility] [address] [place], [address] Albumin [Mass/Vol] g/dL Low 3.4-4.8 [facility] Comment on above: Performed By: #### L [id number], [id number], L100.0100 #### [facility] [address] [place], [address] ALK PHOS 85 U/L Normal 35-104 [facility] Comment on above: Performed By: #### L [id number], [id number], L100.0100 #### [facility] [address] [place], [address] ALT [Catalytic activity/Vol] 44 U/L High <=34 [facility] Comment on above: Performed By: #### L [id number], [id number], L100.0100 #### [facility] [address] [place], [address] AST [Catalytic activity/Vol] 28 U/L Normal <=31 [facility] Comment on above: Result Comment: Hemo lysis present, Results??could be affected. ?? Performed By: #### L [id number], [id number], L100.0100 #### [facility] [address] [place], [address] Bilirubin [Mass/Vol] 0.40 mg/dL Normal 0.00-1.30 [facility] Comment on above: Performed By: #### L [id number], [id number], L100.0100 #### [facility] [address] [place], [address] BUN/CRE 20.1 RATIO High 10-20 [facility] Comment on above: Performed By: #### L [id number], [id number], L100.0100 #### [facility] [address] [place], [address] Calcium [Mass/Vol] 10.2 mg/dL Normal 7.6-11.0 [facility] Comment on above: Performed By: #### L [id number], [id number], L100.0100 #### [facility] [address] [place], [address] Chloride [Moles/Vol] 101 mmol/L Normal 98-108 [facility] Comment on above: Performed By: #### L 501.9985, [id number], L100.0100 #### [facility] [address] [place], [address] CO2 [Moles/Vol] 23.4 mmol/L Normal 21.0-32.0 [facility] Comment on above: Performed By: #### L 501.9985, [id number], L100.0100 #### [facility] [address] [place], [address] Creatinine [Mass/Vol] 0.74 mg/dL Normal 0.70-1.20 [facility] Comment on above: Performed By: #### L [id number], [id number], L100.0100 #### [facility] [address] [place], [address] GAP 13 Normal 5-15 [facility] Comment on above: Performed By: #### L [id number], [id number], L100.0100 #### [facility] [address] [place], [address] GFR/1.73 sq M.predicted among non-blacks MDRD (S/P/Bld) [Vol rate/Area] 91 mL/min/{1.73_m2} Normal >60 [facility] Comment on above: Result Comment: mL/m in/1.73m2 CKD-EPI Creatinine Equation (2020) Performed By: #### L [id number], [id number], L100.0100 #### [facility] [address] [place], [address] GLOB UNABLE TO CALCULATE Low 2.2-4.[address] [facility] Comment on above: Performed By: #### L [id number], [id number], L100.0100 #### [facility] [address] [place], [address] Glucose [Mass/Vol] 214 mg/dL High 70-99 [facility] Comment on above: Performed By: #### L [id number], [id number], L100.0100 #### [facility] [address] [place], [address] Potassium [Moles/Vol] 4.4 mmol/L Normal 3.3-5.1 [facility] Comment on above: Result Comment: Hemo lysis present, Results??could be affected. ?? Performed By: #### L [id number], [id number], L100.0100 #### [facility] [address] [place], [address] Sodium [Moles/Vol] 138 mmol/L Normal 133-145 [facility] Comment on above: Performed By: #### L 501.9985, [id number], L100.0100 #### [facility] [address] [place], [address] T PROT 7.4 g/dL Normal 5.9-8.4 [facility] Comment on above: Performed By: #### L [id number], [id number], L100.0100 #### [facility] [address] [place], [address] Urea nitrogen [Mass/Vol] 15 mg/dL Normal 4-19 [facility] Comment on above: Performed By: #### L [id number], [id number], L100.0100 #### [facility] [address] [place], [address] Eosinophil percentageOrdered By: Glendy Anderson on 02-01-2025 Eosinophils/100 WBC (Bld) 4.7 % 0-5 [facility] Erythrocyte distribution wid th ratioOrdered By: Glendy Anderson on 02-01-2025 Erythrocyte distribution width (RBC) [Ratio] 13.2 % 11.6-14.6 [facility] Erythrocyte distribution wid th standard deviationOrdered By: Glendy Anderson on 02-01-2025 Erythrocyte distribution width (RBC) [Ratio] 42.8 fl 35.1-43.9 [facility] Glomerular filtration rate ( GFR) estimation/1.73 sq m using serum, plasma, or whole bOrdered By: Glendy Anderson on 02-01-2025 GFR/1.73 sq M.predicted among non-blacks MDRD (S/P/Bld) [Vol rate/Area] 91 mL/min/{1.73_m2} >60 [facility] Comment on above: mL/min/1.73m2 CKD-EP I Creatinine Equation (2020) Hematocrit Auto (Bld) [Volum e fraction]Ordered By: Glendy Anderson on 02-01-2025 Hematocrit (Bld) [Volume fraction] 44.1 % 37-47 [facility] Hemoglobin A1c percentageOrd ered By: Glendy Anderson on 02-01-2025 HbA1c (Bld) [Mass fraction] 7.6 % High <5.7 [facility] Comment on above: Normal < 5.7 % Predi abetic 5.7 - 6.4 % Diabetic >or= 6.5 % Please note range changes. Hemoglobin measurementOrdere d By: Glendy Anderson on 02-01-2025 Hemoglobin (Bld) [Mass/Vol] 15.3 g/dL High 12.0-15.0 [facility] Immature granulocytes/100 WB C Auto (Bld)Ordered By: Glendy Anderson on 02-01-2025 Immature granulocytes/100 WBC (Bld) 0.300 % 0.0-0.9 [facility] Comment on above: IG% - Immature Granu locytes (promyelocytes, myelocytes and metamyelocytes) > 1% indicates that a LEFT SHIFT is Present. Laboratory - Chemistry and C hemistry - challengeOrdered By: Glendy Anderson on 02-01-2025 AST [Catalytic activity/Vol] 28 U/L <32 [facility] Comment on above: Hemolysis present, R esults could be affected. MCV (mean corpuscular volume ) determinationOrdered By: Glendy Anderson on 02-01-2025 MCV (RBC) [Entitic vol] 88.4 fL 81-99 [facility] Mean corpuscular hemoglobin (MCH) determinationOrdered By: Glendy Anderson on 02-01-2025 MCH (RBC) [Entitic mass] 30.7 pg 27.0-32.0 [facility] Mean corpuscular hemoglobin concentration (MCHC) determinationOrdered By: Glendy Anderson on 02-01-2025 MCHC (RBC) [Mass/Vol] 34.7 g/dL 32-36 [facility] Mean platelet volume determi nationOrdered By: Glendy Anderson on 02-01-2025 Platelet mean volume (Bld) [Entitic vol] 11.1 fL 6.2-12.0 [facility] Monocyte percentageOrdered B y: Glendy Anderson on 02-01-2025 Monocytes/100 WBC (Bld) 6.2 % 0-10 [facility] Neutrophil percentageOrdered By: Glendy Anderson on 02-01-2025 Neutrophils/100 WBC (Bld) 66.5 % 47-70 [facility] Nucleated red blood cell per centageOrdered By: Glendy Anderson on 02-01-2025 Nucleated RBC/100 WBC (Bld) [Ratio] 0 % 0-5 [facility] Platelet countOrdered By: Do ra Anderson on 02-01-2025 Platelet count See comment 150-450 [facility] Comment on above: Please note: For thi s sample, a platelet estimate is provided rather than a platelet count due to platelet clumping. Other parameters associated with this sample are not affected by platelet clumping. If a more accurate platelet count is required, a redraw of the patient will be necessary. Platelet estimateOrdered By: Glendy Anderson on 02-01-2025 Platelets LM Ql (Bld) SLT DEC ADEQ [facility] Potassium measurement (mass/ volume)Ordered By: Glendy Anderson on 02-01-2025 Potassium (Unsp spec) [Mass/Vol] 4.4 mmol/L 3.3-5.1 [facility] Comment on above: Hemolysis present, R esults could be affected. RBC Auto (Bld) [#/Vol]Ordere d By: Glendy Anderson on 02-01-2025 RBC (Bld) [#/Vol] 4.99 10*6/uL 4.2-5.[address] [facility] Serum creatinine measurement (mass/volume)Ordered By: Glendy Anderson on 02-01-2025 Creatinine [Mass/Vol] 0.74 mg/dL 0.70-1.20 [facility] Serum glucose measurement (m ass/volume)Ordered By: Glendy Anderson on 02-01-2025 Glucose [Mass/Vol] 214 mg/dL High 70-99 [facility] Serum or plasma alanine mead otransferase (ALT) measurementOrdered By: Glendy Anderson on 02-01-2025 ALT [Catalytic activity/Vol] 44 U/L High <35 [facility] Serum or plasma albumin shawna urement (mass/volume)Ordered By: Glendy Anderson on 02-01-2025 Albumin [Mass/Vol] g/dL Low 3.4-4.8 [facility] Serum or plasma albumin/glob ulin mass ratioOrdered By: Glendy Anderson on 02-01-2025 Albumin/Globulin [Mass ratio] UNABLE TO CALCULATE RATIO Low 0.9-2.4 [facility] Serum or plasma alkaline shavonne sphatase measurementOrdered By: Glendy Anderson on 02-01-2025 ALP [Catalytic activity/Vol] 85 U/L 35-104 [facility] Serum or plasma calcium shawna urement (mass/volume)Ordered By: Glendy Anderson on 02-01-2025 Calcium [Mass/Vol] 10.2 mg/dL 7.6-11.0 [facility] Serum or plasma urea nitroge n measurement (mass/volume)Ordered By: Glendy Anderson on 02-01-2025 Urea nitrogen [Mass/Vol] 15 mg/dL 4-19 [facility] Sodium levelOrdered By: Glendy Anderson on 02-01-2025 Sodium [Moles/Vol] 138 mmol/L 133-145 [facility] Total proteinOrdered By: Melvin Anderson on 02-01-2025 Protein [Mass/Vol] 7.4 g/dL 5.9-8.4 [facility] White blood cell (WBC) count Ordered By: Glendy Anderson on 02-01-2025 WBC (Bld) [#/Vol] 3.2 10*3/uL Low 4.4-11.0 [facility] CBC W Auto Differential pane l (Bld)Ordered By: Willie Alexander on 11-30-2024 Basophils (Bld) [#/Vol] 0.1 10*3/uL 0.0 - 0.2 10*3/uL [facility] Basophils/100 WBC (Bld) 1.3 % 0.0 - 2.0 % [facility] Eosinophils (Bld) [#/Vol] 0.2 10*3/uL 0.0 - 0.5 10*3/uL [facility] Eosinophils/100 WBC (Bld) 2.8 % 0.0 - 6.0 % [facility] Erythrocyte distribution width (RBC) [Ratio] 12.7 % 11.5 - 15.0 % [facility] Hematocrit (Bld) [Volume fraction] 38.7 % 35.0 - 47.0 % [facility] Hemoglobin (Bld) [Mass/Vol] 14.1 g/dL 11.7 - 16.0 g/dL [facility] Immature granulocytes (Bld) [#/Vol] 0 10*3/uL NINF - 0.1 10*3/uL [facility] Immature granulocytes/100 WBC (Bld) 0.2 % 0.0 - 2.0 % [facility] Interpretation and review of laboratory results Abnormal [facility] Lymphocytes (Bld) [#/Vol] 1.6 10*3/uL 1.0 - 4.3 10*3/uL [facility] Lymphocytes/100 WBC (Bld) 25.3 % 15.0 - 45.0 % [facility] MCH (RBC) [Entitic mass] 31.2 pg 26.0 - 34.0 pg [facility] MCHC (RBC) [Mass/Vol] 36.4 % High 30.5 - 36.0 % [facility] MCV (RBC) [Entitic vol] 85.6 fL 77.0 - 99.0 fL [facility] Monocytes (Bld) [#/Vol] 0.3 10*3/uL 0.0 - 0.9 10*3/uL [facility] Monocytes/100 WBC (Bld) 5.1 % 5.0 - 13.0 % [facility] Neutrophils (Bld) [#/Vol] 4.1 10*3/uL 1.8 - 7.5 10*3/uL [facility] Neutrophils/100 WBC (Bld) 65.3 % 38.0 - 82.0 % [facility] Nucleated RBC/100 WBC (Bld) [Ratio] 0 % [facility] Platelet mean volume (Bld) [Entitic vol] 9.5 fL 9.0 - 12.7 fL [facility] Comment on above: MPV is a calculated measurement using platelet volume ratio Platelets (Bld) [#/Vol] 282 10*3/uL 140 - 440 10*3/uL [facility] RBC (Bld) [#/Vol] 4.52 10*6/uL 3.80 - 5.2 0 10*6/uL [facility] WBC (Bld) [#/Vol] 6.3 10*3/uL 3.6 - 10.7 10*3/uL [facility] CBC WITH AUTO DIFFERENTIALon 11-30-2024 Basophils (Bld) [#/Vol] 0.1 10*3/uL Normal 0.0-0.2 [facility] Comment on above: Performed By: #### L [id number] #### [employer] Advisor: SUSHILA FREY ([phone]) [facility] CHAPARRITA RITTMAN (SWRLAB) [address] [place] [address] [place] Basophils/100 WBC (Bld) 1.3 % Normal 0.0-2.0 [facility] Comment on above: Performed By: #### L [id number] #### [employer] Advisor: SUSHILA FREY ([phone]) [facility] CHAPARRITA RITTMAN (SWRLAB) [address] [place] [address] [place] Eosinophils (Bld) [#/Vol] 0.2 10*3/uL Normal 0.0-0.5 [facility] Comment on above: Performed By: #### L [id number] #### [employer] Advisor: SUSHILA FREY ([phone]) [facility] CHAPARRITA RITTMAN (SWRLAB) [address] [place] [address] [place] Eosinophils/100 WBC (Bld) 2.8 % Normal 0.0-6.0 [facility] Comment on above: Performed By: #### L [id number] #### [employer] Advisor: SUSHILA FREY ([phone]) [facility] (SWRLAB) [address] [place] [address] Erythrocyte distribution width (RBC) [Ratio] 12.7 % Normal 11.5-15.0 [facility] Comment on above: Performed By: #### L [id number] #### [employer] Advisor: SUSHILA FREY ([phone]) [facility] (SWRL[facility]) [address] [place] [address] Hematocrit (Bld) [Volume fraction] 38.7 % Normal 35.0-47.0 [facility] Comment on above: Performed By: #### L [id number] #### [employer] Advisor: SUSHILA FREY ([phone]) [facility] (SWRL[facility]) [address] [place] [address] Hemoglobin (Bld) [Mass/Vol] 14.1 g/dL Normal 11.7-16.0 [facility] Comment on above: Performed By: #### L [id number] #### [employer] Advisor: SUSHILA FREY ([phone]) [facility] (SWRL[facility]) [address] [place] [address] IMMATURE GRANS % 0.2 % Normal 0.0-2.0 [facility] Comment on above: Performed By: #### L [id number] #### [employer] Advisor: SUSHILA FREY ([phone]) [facility] (SWRL[facility]) [address] [place] [address] IMMATURE GRANS ABSOLUTE 0.0 10*3/uL Normal <0.1 [facility] Comment on above: Performed By: #### L [id number] #### [employer] Advisor: SUSHILA FREY ([phone]) [facility] (SWRL[facility]) [address] [place] [address] Lymphocytes (Bld) [#/Vol] 1.6 10*3/uL Normal 1.0-4.3 [facility] Comment on above: Performed By: #### L [id number] #### [employer] Advisor: SUSHILA FREY ([phone]) [facility] (SWRLAB) [address] [place] [address] [place] Lymphocytes/100 WBC (Bld) 25.3 % Normal 15.0-45.0 [facility] Comment on above: Performed By: #### L [id number] #### [employer] Advisor: SUSHILA FREY ([phone]) [facility] (SWRLAB) [address] [place] [address] MCH (RBC) [Entitic mass] 31.2 pg Normal 26.0-34.0 [facility] Comment on above: Performed By: #### L [id number] #### [employer] Advisor: SUSHILA FREY ([phone]) [facility] (SWRL[facility]) [address] [place] [address] MCHC 36.4 % High 30.5-36.0 [facility] Comment on above: Performed By: #### L [id number] #### [employer] Advisor: SUSHILA FREY ([phone]) [facility] (SWRL[facility]) [address] [place] [address] MCV (RBC) [Entitic vol] 85.6 fL Normal 77.0-99.0 [facility] Comment on above: Performed By: #### L [id number] #### [employer] Advisor: SUSHILA FREY ([phone]) [facility] (SWRL[facility]) [address] [place] [address] Monocytes (Bld) [#/Vol] 0.3 10*3/uL Normal 0.0-0.9 [facility] Comment on above: Performed By: #### L [id number] #### [employer] Advisor: SUSHILA FREY ([phone]) [facility] (SWRL[facility]) [address] [place] [address] [place] Monocytes/100 WBC (Bld) 5.1 % Normal 5.0-13.0 [facility] Comment on above: Performed By: #### L [id number] #### [employer] Advisor: SUSHILA FREY ([phone]) [facility] (SWRL[facility]) [address] [place] [address] NEUTROPHILS ABSOLUTE 4.1 10*3/uL Normal 1.8-7.5 [facility] Comment on above: Performed By: #### L [id number] #### [employer] Advisor: SUSHILA FREY ([phone]) [facility] (SWRLAB) [address] [place] [address] Neutrophils/100 WBC (Bld) 65.3 % Normal 38.0-82.0 [facility] Comment on above: Performed By: #### L [id number] #### [employer] Advisor: SUSHILA FREY ([phone]) [facility] (SWRL[facility]) [address] [place] [address] NRBC 0.0 /100 WBCs Normal 0.0-2.0 [facility] Comment on above: Performed By: #### L [id number] #### [employer] Advisor: SUSHILA FREY ([phone]) [facility] (SWRL[facility]) [address] [place] [address] Platelet mean volume (Bld) [Entitic vol] 9.5 fL Normal 9.0-12.7 [facility] Comment on above: Result Comment: MPV is a calculated measurement using platelet volume ratio Performed By: #### L [id number] #### [employer] Advisor: SUSHILA FREY ([phone]) [facility] (SWRL[facility]) [address] [place] [address] [place] Platelets (Bld) [#/Vol] 282 10*3/uL Normal 140-440 [facility] Comment on above: Performed By: #### L [id number] #### [employer] Advisor: SUSHILA FREY ([phone]) [facility] (SWRL[facility]) [address] [place] [address] [place] RBC (Bld) [#/Vol] 4.52 10*6/uL Normal 3.80-5.20 [facility] Comment on above: Performed By: #### L [id number] #### [employer] Advisor: SUSHILA FREY ([phone]) [facility] (SWRL[place]) [address] WBC (Bld) [#/Vol] 6.3 10*3/uL Normal 3.6-10.7 [facility] Comment on above: Performed By: #### L [id number] #### [employer] Advisor: SUSHILA FREY ([phone]) [facility] (SWRL[facility]) [address] [place] [address] COMPREHENSIVE METABOLIC PANE Jimmy 11-30-2024 Albumin [Mass/Vol] 4.0 g/dL Normal 3.4-4.8 [facility] Comment on above: Performed By: #### L [id number], LAB17 #### [employer] Advisor: SUSHILA FREY ([phone]) [facility] (SWRL[facility]) [address] [place] [address] ALP [Catalytic activity/Vol] 65 U/L Normal 40-150 [facility] Comment on above: Performed By: #### L AB99, LAB17 #### [employer] Advisor: SUSHILA FREY ([phone]) [facility] (SWRL[facility]) [address] [place] [address] ALT [Catalytic activity/Vol] 34 U/L High <30 [facility] Comment on above: Performed By: #### L [id number], LAB17 #### [employer] Advisor: SUSHILA FREY ([phone]) [facility] (SWRL[place]) [address] Anion gap [Moles/Vol] 8 mmol/L Normal 3-13 [facility] Comment on above: Performed By: #### L AB99, LAB17 #### [employer] Advisor: SUSHILA FREY ([phone]) [facility] [place] (SW[place]) [address] [place] [address] [place] AST [Catalytic activity/Vol] 25 U/L Normal <34 [facility] Comment on above: Performed By: #### L AB99, LAB17 #### [employer] Advisor: SUSHILA FREY ([phone]) [facility] (SWRL[facility]) [address] [place] [address] [place] Bilirubin [Mass/Vol] 0.8 mg/dL Normal <1.2 [facility] Comment on above: Performed By: #### L AB99, LAB17 #### [employer] Advisor: SUSHILA FREY ([phone]) [facility] (SWRL[facility]) [address] [place] [address] Calcium [Mass/Vol] 9.4 mg/dL Normal 8.8-10.0 [facility] Comment on above: Performed By: #### Rhiannon MUÑIZ, LAB17 #### [employer] Advisor: SUSHILA FREY ([phone]) [facility] (SWRL[facility]) [address] [place] [address] [place] Chloride [Moles/Vol] 109 mmol/L High 98-107 [facility] Comment on above: Performed By: #### L AB99, LAB17 #### [employer] Advisor: SUSHILA FREY ([phone]) [facility] (SWRL[place]) [address] [place] [address] [place] CO2 [Moles/Vol] 23 mmol/L Normal 23-31 [facility] Comment on above: Performed By: #### L AB99, LAB17 #### [employer] Advisor: SUSHILA FREY ([phone]) [facility] (SWRL[facility]) [address] [place] [address] [place] Creatinine [Mass/Vol] 0.80 mg/dL Normal 0.57-1.11 [facility] Comment on above: Performed By: #### L AB99, LAB17 #### [employer] Advisor: SUSHILA FREY ([phone]) [facility] [place] (SW[place]) [address] [place] [address] [place] GLOMERULAR FILTRATION RATE ML/MIN/1.73 SQ M.PREDICTED 82.9 mL/min/1.73m*2 Normal >60.0 [facility] Comment on above: Result Comment: Calc ulation based on the Chronic Kidney Disease Epidemiology Collaboration (CKD-EPI) equation refit without adjustment for race Performed By: #### L AB99, LAB17 #### [employer] Advisor: SUSHILA FREY ([phone]) [facility] (SWRL[facility]) [address] [place] [address] [place] Glucose [Mass/Vol] 104 mg/dL Normal 82-115 [facility] Comment on above: Performed By: #### L AB99, LAB17 #### [employer] Advisor: SUSHILA FREY ([phone]) [facility] (SWRL[facility]) [address] [place] [address] [place] Potassium [Moles/Vol] 3.8 mmol/L Normal 3.5-5.1 [facility] Comment on above: Result Comment: [facility] potassium values may be up to 0.5 mmol/L lower than serum values. Performed By: #### L AB99, LAB17 #### [employer] Advisor: SUSHILA FREY ([phone]) [facility] (SWRL[facility]) [address] [place] [address] [place] Protein [Mass/Vol] 7.0 g/dL Normal 6.4-8.3 [facility] Comment on above: Performed By: #### L AB99, LAB17 #### [employer] Advisor: SUSHILA FREY ([phone]) [facility] [place] (SWRL[facility]) [address] [place] [address] [place] Sodium [Moles/Vol] 140 mmol/L Normal 136-145 [facility] Comment on above: Performed By: #### L AB99, LAB17 #### [employer] Advisor: SUSHILA FREY ([phone]) [facility] [place] ([place]) [address] Urea nitrogen [Mass/Vol] 17 mg/dL Normal 9-23 [facility] Comment on above: Performed By: #### L AB99, LAB17 #### [employer] Advisor: SUSHILA FREY ([phone]) [facility] (SWRLAB) [address] ABDOMEN PELVIS W CONTRAST on 11-30-2024 CT ABDOMEN PELVIS W CONTRAST Patient Name: JUAN OLSEN : 1960 Exam Date/Time: 11/30/2024 11:41 Procedure: CT ABDOMEN PELVIS W CONTRAST Ordering Provider: MERIDA MARY Reason For Exam: Nausea/vomiting; RLQ abdominal pain (Age >= 14y) EXAM: CT Abdomen and Pelvis With Intravenous Contrast CLINICAL INDICATION: Nausea/vomiting; RLQ abdominal pain (Age >= 14y) TECHNIQUE: Axial computed tomography images of the abdomen and pelvis with intravenous contrast. This CT exam was performed using one or more of the following dose reduction techniques: automated exposure control, adjustment of the mA and/or kV according to patient size, and/or use of iterative reconstruction technique. COMPARISON: 08/15/2014. FINDINGS: LUNG BASES: 4 mm left lower lobe nodule not requiring follow-up imaging given stability since 2014. No consolidation. ABDOMEN: LIVER: The liver is diffusely hypoattenuating consistent with diffuse hepatic steatosis. GALLBLADDER AND BILE DUCTS: Status post cholecystectomy. No ductal dilation. PANCREAS: Unremarkable. No mass. No ductal dilation. SPLEEN: Unremarkable. No splenomegaly. ADRENALS: Unremarkable. No mass. KIDNEYS AND URETERS: Simple right renal cyst. No follow-up of this simple cyst is necessary. No hydronephrosis. STOMACH AND BOWEL: Diverticuli are noted scattered throughout the colon. No stenotic lesion, mucosal thickening or adjacent fat stranding is noted to suggest diverticulitis. No obstruction. PELVIS: APPENDIX: No findings to suggest acute appendicitis. BLADDER: Unremarkable. No mass. REPRODUCTIVE: Status post hysterectomy. ABDOMEN and PELVIS: INTRAPERITONEAL SPACE: Unremarkable. No free air. No significant fluid collection. BONES/JOINTS: Mild degenerative changes are present in the visualized spine. No acute fracture. VASCULATURE: Atherosclerotic disease. No abdominal aortic aneurysm. LYMPH NODES: Unremarkable. No enlarged lymph nodes. IMPRESSION: 1. No acute findings. 2. Hepatic steatosis. 3. Colonic diverticulosis. Report Dictated on Electronically Signed By: Rigoberto Mustafa MD Electronically Signed Date/Time: 11/30/2024 12:42 PM EDT Pt presents to ED for lower abdominal pain. Pt reports pain increased 3 days ago. Pt reports nausea and bloating. Hx diverticulitis. Normal [facility] CT Abdomen and Pelvis W cont rast Billie 11-30-2024 1. No acute findings . 2. Hepatic steatosis. 3. Colonic diverticulosis. Report Dictated on Electronically Signed By: Rigoberto Mustafa MD Electronically Signed Date/Time: 11/30/2024 12:42 PM EDT [facility] RADIOLOGY SYSTEM Patient Name: JUAN OLSEN : 1960 Exam Date/Time: 11/30/2024 11:41 Procedure: CT ABDOMEN PELVIS W CONTRAST Ordering Provider: MERIDA MARY Reason For Exam: Nausea/vomiting; RLQ abdominal pain (Age >= 14y) EXAM: CT Abdomen and Pelvis With Intravenous Contrast CLINICAL INDICATION: Nausea/vomiting; RLQ abdominal pain (Age >= 14y) TECHNIQUE: Axial computed tomography images of the abdomen and pelvis with intravenous contrast. This CT exam was performed using one or more of the following dose reduction techniques: automated exposure control, adjustment of the mA and/or kV according to patient size, and/or use of iterative reconstruction technique. COMPARISON: 08/15/2014. FINDINGS: LUNG BASES: 4 mm left lower lobe nodule not requiring follow-up imaging given stability since 2014. No consolidation. ABDOMEN: LIVER: The liver is diffusely hypoattenuating consistent with diffuse hepatic steatosis. GALLBLADDER AND BILE DUCTS: Status post cholecystectomy. No ductal dilation. PANCREAS: Unremarkable. No mass. No ductal dilation. SPLEEN: Unremarkable. No splenomegaly. ADRENALS: Unremarkable. No mass. KIDNEYS AND URETERS: Simple right renal cyst. No follow-up of this simple cyst is necessary. No hydronephrosis. STOMACH AND BOWEL: Diverticuli are noted scattered throughout the colon. No stenotic lesion, mucosal thickening or adjacent fat stranding is noted to suggest diverticulitis. No obstruction. PELVIS: APPENDIX: No findings to suggest acute appendicitis. BLADDER: Unremarkable. No mass. REPRODUCTIVE: Status post hysterectomy. ABDOMEN and PELVIS: INTRAPERITONEAL SPACE: Unremarkable. No free air. No significant fluid collection. BONES/JOINTS: Mild degenerative changes are present in the visualized spine. No acute fracture. VASCULATURE: Atherosclerotic disease. No abdominal aortic aneurysm. LYMPH NODES: Unremarkable. No enlarged lymph nodes. [facility] RADIOLOGY SYSTEM Rigoberto Mustafa MD - 11/30/2024 Patient Name: JUAN OLSEN : 1960 Exam Date/Time: 11/30/2024 11:41 Procedure: CT ABDOMEN PELVIS W CONTRAST Ordering Provider: MERIDA MARY Reason For Exam: Nausea/vomiting; RLQ abdominal pain (Age >= 14y) EXAM: CT Abdomen and Pelvis With Intravenous Contrast CLINICAL INDICATION: Nausea/vomiting; RLQ abdominal pain (Age >= 14y) TECHNIQUE: Axial computed tomography images of the abdomen and pelvis with intravenous contrast. This CT exam was performed using one or more of the following dose reduction techniques: automated exposure control, adjustment of the mA and/or kV according to patient size, and/or use of iterative reconstruction technique. COMPARISON: 08/15/2014. FINDINGS: LUNG BASES: 4 mm left lower lobe nodule not requiring follow-up imaging given stability since 2014. No consolidation. ABDOMEN: LIVER: The liver is diffusely hypoattenuating consistent with diffuse hepatic steatosis. GALLBLADDER AND BILE DUCTS: Status post cholecystectomy. No ductal dilation. PANCREAS: Unremarkable. No mass. No ductal dilation. SPLEEN: Unremarkable. No splenomegaly. ADRENALS: Unremarkable. No mass. KIDNEYS AND URETERS: Simple right renal cyst. No follow-up of this simple cyst is necessary. No hydronephrosis. STOMACH AND BOWEL: Diverticuli are noted scattered throughout the colon. No stenotic lesion, mucosal thickening or adjacent fat stranding is noted to suggest diverticulitis. No obstruction. PELVIS: APPENDIX: No findings to suggest acute appendicitis. BLADDER: Unremarkable. No mass. REPRODUCTIVE: Status post hysterectomy. ABDOMEN and PELVIS: INTRAPERITONEAL SPACE: Unremarkable. No free air. No significant fluid collection. BONES/JOINTS: Mild degenerative changes are present in the visualized spine. No acute fracture. VASCULATURE: Atherosclerotic disease. No abdominal aortic aneurysm. LYMPH NODES: Unremarkable. No enlarged lymph nodes. IMPRESSION: 1. No acute findings. 2. Hepatic steatosis. 3. Colonic diverticulosis. Report Dictated on Electronically Signed By: Rigoberto Mustafa MD Electronically Signed Date/Time: 11/30/2024 12:42 PM EDT [facility] Radiology Study observation (narrative) [facility] CT Abdomen and Pelvis W cont rast IVOrdered By: Rigoberto Mustafa on 11-30-2024 [facility] Work Phone: Comprehensive metabolic 1998 panelon 11-30-2024 Albumin [Mass/Vol] 4 g/dL 3.4 - 4.8 g/dL [facility] ALP [Catalytic activity/Vol] 65 U/L 40 - 150 U/L [facility] ALT [Catalytic activity/Vol] 34 U/L High NINF - 30 U/L [facility] Anion gap [Moles/Vol] 8 mmol/L 3 - 13 mmol/L [facility] AST [Catalytic activity/Vol] 25 U/L NINF - 34 U/L [facility] Bilirubin [Mass/Vol] 0.8 mg/dL [facility] mg/dL [facility] Calcium [Mass/Vol] 9.4 mg/dL 8.8 - 10. 0 mg/dL [facility] Chloride [Moles/Vol] 109 mmol/L High 98 - 10 7 mmol/L [facility] CO2 [Moles/Vol] 23 mmol/L 23 - 31 mmol/L [facility] Creatinine [Mass/Vol] 0.8 mg/dL 0.57 - 1.11 mg/dL [facility] GFR/1.73 sq M.predicted (S/P/Bld) [Vol rate/Area] 82.9 mL/min - PINF [facility] Comment on above: Calculation based on the Chronic Kidney Disease Epidemiology Collaboration (CKD-EPI) equation refit without adjustment for race Glucose [Mass/Vol] 104 mg/dL 82 - 115 mg/dL [facility] Interpretation and review of laboratory results Abnormal [facility] Potassium [Moles/Vol] 3.8 mmol/L 3.5 - 5.1 mmol/L [facility] Comment on above: Plasma potassium gabriela ues may be up to 0.5 mmol/L lower than serum values. Protein [Mass/Vol] 7 g/dL 6.4 - 8.3 g/dL [facility] Sodium [Moles/Vol] 140 mmol/L 136 - 145 mmol/L [facility] Urea nitrogen [Mass/Vol] 17 mg/dL 9 - 23 mg/dL [facility] ED Nursing Noteon 11-30-2024 ED Nursing Note RN went over discharge instructions with the patient, Patient was able to reinstruct RN with discharge care. Patient denies any questions. Patient is A&Ox3 at time of discharge. Patient denied needing use of wheelchair to ED waiting room. RN directed patient towards exit upon being discharged, Patient had steady gait upon leaving unit. Normal [facility] ED Nursing Note Pt educated to poornima w up with PCP in regards to blood pressure. Pt verbalizes understanding. Normal [facility] ED Nursing Note DO Hannah made aware of patient blood pressure 173/75. Per DO Hannah patient is okay for discharge. Normal [facility] ED Provider Noteon ED Provider Note EMERGENCY DEPARTMENT ENCOUNTER Pt Name: Juan Olsen Birthdate 1960 Date of evaluation: 11/30/2024 ED Provider: Yadira Merida DO CHIEF COMPLAINT Chief Complaint Patient presents with Abdominal Pain Pt presents to ED for lower abdominal pain. Pt reports pain increased 3 days ago. Pt reports nausea and bloating. Hx diverticulitis. HISTORY OF PRESENT ILLNESS (Location/Symptom, Timing/Onset, Context/Setting, Quality, Duration, Modifying Factors, Severity) Note limiting factors. I wore appropriate PPE for the entirety of this encounter. HPI Juan Olsen is a 64 y.o. who presents to the emergency department for abdominal pain. Patient endorsing right lower quadrant abdominal pain for 3 days increasing with nausea and bloating. Patient also endorsing diarrhea and thin stools. She endorses history of frequent diverticulitis status post colectomy that feels similar. She was just seen by her PCP about a month ago for diverticulitis however 3 days ago pain returned and feels worse. She denies any fevers vomiting hematochezia melena UTI symptoms. Abdominal surgical history includes hernia repairs total hysterectomy colectomy cholecystectomy. Nursing Notes were reviewed. Limitations to history: Outside historians: REVIEW OF SYSTEMS Review of Systems Pertinent positives and negatives as per HPI PAST MEDICAL HISTORY Past Medical History: Diagnosis Date Anxiety Diverticulitis of colon (without mention of hemorrhage)(562.11) Hypertension Hypothyroidism Sleep apnea Tobacco use disorder SURGICAL HISTORY Past Surgical History: Procedure Laterality Date CARPAL TUNNEL RELEASE SECTION (HISTORICAL) CHOLECYSTECTOMY COLECTOMY COLONOSCOPY 09/2011 HYSTERECTOMY TOTAL ABDOMINAL HYSTERECTOMY 08/02/2011 CURRENT MEDICATIONS Previous Medications No medications on file ALLERGIES Hydrocodone-acetamino phen, Duloxetine hcl, Prednisone, Cyclobenzaprine, and Penicillins FAMILY HISTORY Family History Problem Relation Name Age of Onset Stroke Mother Diabetes Father Thyroid disease Mother Diabetes Mother Stroke Father Thyroid disease Father SOCIAL HISTORY Social History Socioeconomic History Marital status: Tobacco Use Smoking status: Former Current packs/day: 1.00 Average packs/day: 1 pack/day for 48.5 years (48.5 ttl pk-yrs) Types: Cigarettes Start date: 05/20/1976 Smokeless tobacco: Never Tobacco comments: Quit smoking: Will let know when ready Substance and Sexual Activity Alcohol use: Yes Alcohol/week: 0.0 standard drinks of alcohol Drug use: No PHYSICAL EXAM ED Triage Vitals [11/30/24 1034] Temp Heart Rate Resp BP 36.7 ?C (98 ?F) 61 19 (!) 185/84 SpO2 Temp Source Heart Rate Source Patient Position 99 % Oral -- -- BP Location FiO2 (%) -- -- Physical Exam Vitals and nursing note reviewed. Constitutional: General: She is not in acute distress. Appearance: She is not toxic-appearing. HENT: Head: Normocephalic and atraumatic. Mouth/Throat: Pharynx: Oropharynx is clear. Eyes: General: No scleral icterus. Pupils: Pupils are equal, round, and reactive to light. Cardiovascular: Rate and Rhythm: Normal rate and regular rhythm. Pulmonary: Effort: Pulmonary effort is normal. No respiratory distress. Breath sounds: Normal breath sounds. Abdominal: General: Bowel sounds are normal. Palpations: Abdomen is soft. Tenderness: There is generalized abdominal tenderness and tenderness in the right lower quadrant. There is no right CVA tenderness or left CVA tenderness. Skin: General: Skin is warm and dry. Neurological: General: No focal deficit present. Mental Status: She is alert and oriented to person, place, and time. Psychiatric: Mood and Affect: Mood normal. Behavior: Behavior normal. DIAGNOSTIC RESULTS RADIOLOGY (Per Emergency Physician): Interpretation per the Radiologist below, if available at the time of this note: CT abdomen pelvis w contrast Final Result 1. No acute findings. 2. Hepatic steatosis. 3. Colonic diverticulosis. Report Dictated on Electronically Signed By: Rigoberto Mustafa MD Electronically Signed Date/Time: 11/30/2024 12:42 PM EDT LABS: Labs Reviewed CBC WITH AUTO DIFFERENTIAL - Abnormal Result Value Auto WBC 6.3 RBC 4.52 Hemoglobin 14.1 Hematocrit 38.7 MCV 85.6 MCH 31.2 MCHC 36.4 (*) RDW 12.7 Platelets 282 MPV 9.5 nRBC 0.0 Neutrophils Relative 65.3 Lymphocytes Relative 25.3 Monocytes Relative 5.1 Eosinophils Relative 2.8 Basophils Relative 1.3 Immature Grans % 0.2 Neutrophils Absolute 4.1 Lymphocytes Absolute 1.6 Monocytes Absolute 0.3 Eosinophils Absolute 0.2 Basophils Absolute 0.1 Immature Grans Absolute 0.0 COMPREHENSIVE METABOLIC PANEL - Abnormal SODIUM 140 POTASSIUM 3.8 CHLORIDE 109 (*) CARBON DIOXIDE 23 ANION GAP 8 UREA NITROGEN (more content not included)... Normal [facility] LIPASEon 11-30-2024 Lipase [Catalytic activity/Vol] 22 U/L Normal <55 [facility] Comment on above: Performed By: #### L AB99, LAB17 #### [employer] Advisor: SUSHILA FREY ([phone]) [facility]ITAL[facility]APARR[facility]USH[facility] HENRY ([address] Laboratory - Chemistry and C hemistry - challengeon 11-30-2024 Lipase [Catalytic activity/Vol] 22 U/L NINF - 55 U/L [facility] Lipase [Catalytic activity/V ol]on 11-30-2024 Interpretation and review of laboratory results Normal [facility] No Panel Informationon 11-30 [facility] Amylaseon 07-17-2024 SUSHILA 52 U/L Normal 25-115 [facility] Comment on above: Performed By: #### L 501.2450, L501.9520, L100.0100, L501.2400, L500.4100, L500.4050 #### [facility] [address] [place], [address] CBC W/Diff, Automatedon 12-08 07-2023 Absolute Lymph 1.90 X10 3/uL Normal 0.83-4.51 [facility] Comment on above: Performed By: #### L 501.2450, L501.9520, L100.0100, L501.2400, L500.4100, L500.4050 #### [facility] [address] [place], [address] Absolute Neut 3.8 X10 3/uL Normal 2.0-7.7 [facility] Comment on above: Performed By: #### L 501.2450, L501.9520, L100.0100, L501.2400, L500.4100, L500.4050 #### [facility] [address] [place], [address] Basophils/100 WBC (Bld) 1.0 % Normal 0-1 [facility] Comment on above: Performed By: #### L 501.2450, L501.9520, L100.0100, L501.2400, L500.4100, L500.4050 #### [facility] [address] [place], [address] Eosinophils/100 WBC (Bld) 2.4 % Normal 0-5 [facility] Comment on above: Performed By: #### L 501.2450, L501.9520, L100.0100, L501.2400, L500.4100, L500.4050 #### [facility] [address] [place], [address] Erythrocyte distribution width (RBC) [Ratio] 13.2 % Normal 11.6-14.6 [facility] Comment on above: Performed By: #### L 501.2450, L501.9520, L100.0100, L501.2400, L500.4100, L500.4050 #### [facility] [address] [place], [address] Hematocrit (Bld) [Volume fraction] 37.5 % Normal 37-47 [facility] Comment on above: Performed By: #### L 501.2450, L501.9520, L100.0100, L501.2400, L500.4100, L500.4050 #### [facility] [address] [place], [address] Hemoglobin (Bld) [Mass/Vol] 13.5 g/dL Normal 12.0-15.0 [facility] Comment on above: Performed By: #### L 501.2450, L501.9520, L100.0100, L501.2400, L500.4100, L500.4050 #### [facility] [address] [place], [address] IG% 0.300 Normal 0.0-0.9 [facility] Comment on above: Result Comment: IG% - Immature Granulocytes (promyelocytes, myelocytes and metamyelocytes) > 1% indicates that a LEFT SHIFT is Present. Performed By: #### L 501.2450, L501.9520, L100.0100, L501.2400, L500.4100, L500.4050 #### [facility] [address] [place], [address] Lymphocytes/100 WBC (Bld) 30.3 % Normal 19-41 [facility] Comment on above: Performed By: #### L 501.2450, L501.9520, L100.0100, L501.2400, L500.4100, L500.4050 #### [facility] [address] [place], [address] MCH (RBC) [Entitic mass] 32.0 pg Normal 27.0-32.0 [facility] Comment on above: Performed By: #### L 501.2450, L501.9520, L100.0100, L501.2400, L500.4100, L500.4050 #### [facility] [address] [place], [address] MCHC (RBC) [Mass/Vol] 36.0 g/dL Normal 32-36 [facility] Comment on above: Performed By: #### L 501.2450, L501.9520, L100.0100, L501.2400, L500.4100, L500.4050 #### [facility] [address] [place], [address] MCV (RBC) [Entitic vol] 88.9 fL Normal 81-99 [facility] Comment on above: Performed By: #### L 501.2450, L501.9520, L100.0100, L501.2400, L500.4100, L500.4050 #### [facility] [address] [place], [address] Monocytes/100 WBC (Bld) 5.9 % Normal 0-10 [facility] Comment on above: Performed By: #### L 501.2450, L501.9520, L100.0100, L501.2400, L500.4100, L500.4050 #### [facility] [address] [place], [address] Neutrophils/100 WBC (Bld) 60.1 % Normal 47-70 [facility] Comment on above: Performed By: #### L 501.2450, L501.9520, L100.0100, L501.2400, L500.4100, L500.4050 #### [facility] [address] [place], [address] Nucleated RBC (Bld) [#/Vol] 0 10*3/uL Normal 0-5 [facility] Comment on above: Performed By: #### L 501.2450, L501.9520, L100.0100, L501.2400, L500.4100, L500.4050 #### [facility] [address] [place], [address] Platelet mean volume (Bld) [Entitic vol] 10.5 fL Normal 6.2-12.0 [facility] Comment on above: Performed By: #### L 501.2450, L501.9520, L100.0100, L501.2400, L500.4100, L500.4050 #### [facility] [address] [place], [address] Platelets (Bld) [#/Vol] 305 10*3/uL Normal 150-450 [facility] Comment on above: Performed By: #### L 501.2450, L501.9520, L100.0100, L501.2400, L500.4100, L500.4050 #### [facility] [address] [place], [address] RBC (Bld) [#/Vol] 4.22 10*6/uL Normal 4.2-5.[address] [facility] Comment on above: Performed By: #### L 501.2450, L501.9520, L100.0100, L501.2400, L500.4100, L500.4050 #### [facility] [address] [place], [address] RDW SD 42.9 fl Normal 35.1-43.9 [facility] Comment on above: Performed By: #### L 501.2450, L501.9520, L100.0100, L501.2400, L500.4100, L500.4050 #### [facility] [address] [place], [address] WBC (Bld) [#/Vol] 6.3 10*3/uL Normal 4.4-11.0 [facility] Comment on above: Performed By: #### L 501.2450, L501.9520, L100.0100, L501.2400, L500.4100, L500.4050 #### [facility] [address] [place], [address] Comprehensive Metabolic Prof ilon 07-17-2024 Albumin [Mass/Vol] 3.7 g/dL Normal 3.2-5.0 [facility] Comment on above: Performed By: #### L 501.2450, L501.9520, L100.0100, L501.2400, L500.4100, L500.4050 #### [facility] [address] [place], [address] Albumin/Globulin [Mass ratio] 1.2 {ratio} Normal 0.9-2.4 [facility] Comment on above: Performed By: #### L 501.2450, L501.9520, L100.0100, L501.2400, L500.4100, L500.4050 #### [facility] [address] [place], [address] ALK P 74 U/L Normal 45-117 [facility] Comment on above: Performed By: #### L 501.2450, L501.9520, L100.0100, L501.2400, L500.4100, L500.4050 #### [facility] [address] [place], [address] ALT [Catalytic activity/Vol] 34 U/L Normal 13-56 [facility] Comment on above: Performed By: #### L 501.2450, L501.9520, L100.0100, L501.2400, L500.4100, L500.4050 #### [facility] [address] [place], [address] AST [Catalytic activity/Vol] 21 U/L Normal 15-37 [facility] Comment on above: Result Comment: Slig ht Hemolysis, Result may be falsely increased. Performed By: #### L 501.2450, L501.9520, L100.0100, L501.2400, L500.4100, L500.4050 #### [facility] [address] [place], [address] Bilirubin [Mass/Vol] 0.30 mg/dL Normal 0.20-1.00 [facility] Comment on above: Result Comment: For patients on eltrombopag therapy, use of Dimension [place] TBIL is not recommended. Performed By: #### L 501.2450, L501.9520, L100.0100, L501.2400, L500.4100, L500.4050 #### [facility] [address] [place], [address] BUN/CRE 33.5 RATIO High 10-20 [facility] Comment on above: Performed By: #### L 501.2450, L501.9520, L100.0100, L501.2400, L500.4100, L500.4050 #### [facility] [address] [place], [address] CA,Total 9.4 mg/dL Normal 8.5-10.1 [facility] Comment on above: Performed By: #### L 501.2450, L501.9520, L100.0100, L501.2400, L500.4100, L500.4050 #### [facility] [address] [place], [address] Chloride [Moles/Vol] 112 mmol/L High 98-107 [facility] Comment on above: Performed By: #### L 501.2450, L501.9520, L100.0100, L501.2400, L500.4100, L500.4050 #### [facility] [address] [place], [address] CO2 [Moles/Vol] 24.0 mmol/L Normal 21.0-32.0 [facility] Comment on above: Performed By: #### L 501.2450, L501.9520, L100.0100, L501.2400, L500.4100, L500.4050 #### [facility] [address] [place], [address] Creatinine [Mass/Vol] 0.66 mg/dL Normal 0.55-1.02 [facility] Comment on above: Result Comment: The validity of the calculated GFR GFRAA in patients over 70 years has not been determined. Clinical correlation is essential. Performed By: #### L 501.2450, L501.9520, L100.0100, L501.2400, L500.4100, L500.4050 #### [facility] [address] [place], [address] EST GFR - AA 117 mL/min Normal >60 [facility] Comment on above: Result Comment: Afri can [place] GFR Calc Performed By: #### L 501.2450, L501.9520, L100.0100, L501.2400, L500.4100, L500.4050 #### [facility] [address] [place], [address] GAP 5 Normal 5-15 [facility] Comment on above: Performed By: #### L 501.2450, L501.9520, L100.0100, L501.2400, L500.4100, L500.4050 #### [facility] [address] [place], [address] GFR/1.73 sq M.predicted among non-blacks MDRD (S/P/Bld) [Vol rate/Area] 97 mL/min/{1.73_m2} Normal >60 [facility] Comment on above: Result Comment: Non- GFR Calc Performed By: #### L 501.2450, L501.9520, L100.0100, L501.2400, L500.4100, L500.4050 #### [facility] [address] [place], [address] Globulin (S) [Mass/Vol] 3.1 g/dL Normal 2.2-4.2 [facility] Comment on above: Performed By: #### L 501.2450, L501.9520, L100.0100, L501.2400, L500.4100, L500.4050 #### [facility] [address] [place], [address] Glucose [Mass/Vol] 98 mg/dL Normal 74-106 [facility] Comment on above: Performed By: #### L 501.2450, L501.9520, L100.0100, L501.2400, L500.4100, L500.4050 #### [facility] [address] [place], [address] Potassium [Moles/Vol] 4.0 mmol/L Normal 3.5-5.1 [facility] Comment on above: Result Comment: Slig ht Hemolysis, Result may be falsely increased. Performed By: #### L 501.2450, L501.9520, L100.0100, L501.2400, L500.4100, L500.4050 #### [facility] [address] [place], [address] Sodium [Moles/Vol] 141 mmol/L Normal 136-145 [facility] Comment on above: Performed By: #### L 501.2450, L501.9520, L100.0100, L501.2400, L500.4100, L500.4050 #### [facility] [address] [place], [address] T PROT 6.8 g/dL Normal 6.4-8.2 [facility] Comment on above: Performed By: #### L 501.2450, L501.9520, L100.0100, L501.2400, L500.4100, L500.4050 #### [facility] [address] [place], [address] Urea nitrogen [Mass/Vol] 22 mg/dL High 7-18 [facility] Comment on above: Performed By: #### L 501.2450, L501.9520, L100.0100, L501.2400, L500.4100, L500.4050 #### [facility] [address] [place], [address] Lipaseon 07-17-2024 Lipase [Catalytic activity/Vol] 60 U/L Normal 13-75 [facility] Comment on above: Result Comment: Adria benavides note: LIPASE revised reference range effective 22. New Lipase methodology. Expected to produce lower values than the previous assay method. NEW Reference Range: 13 - 75 U/L Performed By: #### L 501.2450, L501.9520, L100.0100, L501.2400, L500.4100, L500.4050 #### [facility] [address] [place], [address] Lipid Profileon 07-17-2024 Cholesterol [Mass/Vol] 148 mg/dL Normal 200 [facility] Comment on above: Result Comment: <200 mg/dL Desirable 200-240 mg/dL Borderline >240 mg/dL High Risk Performed By: #### L 501.2450, L501.9520, L100.0100, L501.2400, L500.4100, L500.4050 #### [facility] [address] [place], [address] Cholesterol in HDL [Mass/Vol] 57 mg/dL Normal [facility] Comment on above: Result Comment: The drugs N-Acetylcysteine and Metamizole may falsely depress this assay. Reference Range HDL <40 mg/dL Low HDL Cholesterol HDL >or= 60 mg/dL High HDL Cholesterol Performed By: #### L 501.2450, L501.9520, L100.0100, L501.2400, L500.4100, L500.4050 #### [facility] [address] [place], [address] Cholesterol in LDL [Mass/Vol] 72 mg/dL Normal 0-130 [facility] Comment on above: Performed By: #### L 501.2450, L501.9520, L100.0100, L501.2400, L500.4100, L500.4050 #### [facility] [address] [place], [address] Cholesterol in VLDL [Mass/Vol] 19 mg/dL Normal 5-40 [facility] Comment on above: Performed By: #### L 501.2450, L501.9520, L100.0100, L501.2400, L500.4100, L500.4050 #### [facility] [address] [place], [address] Triglyceride [Mass/Vol] 94 mg/dL Normal [facility] Comment on above: Result Comment: The drugs N-Acetylcysteine and Metamizole may falsely depress this assay. Serum Triglycerides Reference Interval Normal <150 mg/dL Borderline high 150 - 199 mg/dL High 200 - 499 mg/dL Very High > or = 500 mg/dL Performed By: #### L 501.2450, L501.9520, L100.0100, L501.2400, L500.4100, L500.4050 #### [facility] [address] [place], [address] Thyroid Stim Hormone (TSH)on 07-17-2024 TSH 2.290 uIU/mL Normal 0.358-3.740 [facility] Comment on above: Performed By: #### L 501.2450, L501.9520, L100.0100, L501.2400, L500.4100, L500.4050 #### [facility] [place], [address] ZANE Comprehensive Panelon ZANE TABLE Comment Normal . [facility] Comment on above: Result Comment: Auto antibody Disease Association Condition Frequency --------- Antinuclear Antibody, SLE, mixed connective Direct (ZANE-D) tissue diseases --------- dsDNA SLE 40 - 60% --------- Chromatin Drug induced SLE 90% SLE 48 - 97% --------- SSA (Ro) SLE 25 - 35% Sjogren's Syndrome 40 - 70% Lupus 100% --------- SSB (La) SLE 10% Sjogren's Syndrome 30% --------- Sm (anti-Reynolds) SLE 15 - 30% --------- CONFIDENTIAL SECRETARY Mixed Connective Tissue Disease 95% (U1 nRNP, SLE 30 - 50% anti-ribonucleoprotein) Polymyositis and/or Dermatomyositis 20% --------- Scl-70 (antiDNA Scleroderma (diffuse) 20 - 35% topoisomerase) Crest 13% --------- Jessica-1 Polymyositis and/or Dermatomyositis 20 - 40% --------- Centromere B Scleroderma - Crest variant 80% Performed at: [address] [id number] Tech Ed Teacher: Magdi Che PhD, Phone: [phone] Performed By: #### L 750.9985, L500.4050, L100.0100 #### [facility] [address] [place], [address] ANTI-CENT B AB <0.2 Normal 0.0-0.9 [facility] Comment on above: Performed By: #### L 501.9985, L500.4050, L100.0100 #### [facility] [address] [place], [address] ANTI-DNA (DS)AB 8 IU/mL Normal 0-9 [facility] Comment on above: Result Comment: Nega tive <5 Equivocal 5 - 9 Positive >9 Performed By: #### L 501.9985, L500.4050, L100.0100 #### [facility] [address] [place], [address] ANTI-JESSICA-1 <0.2 Normal 0.0-0.9 [facility] Comment on above: Performed By: #### L 501.9985, L500.4050, L100.0100 #### [facility] [address] [place], [address] ANTI-SS-A < 0.2 Normal 0.0-0.9 [facility] Comment on above: Performed By: #### L 501.9985, L500.4050, L100.0100 #### [facility] [address] [place], [address] ANTI-SS-B < 0.2 Normal 0.0-0.9 [facility] Comment on above: Performed By: #### L 501.9985, L500.4050, L100.0100 #### [facility] [address] [place], [address] ANTICHROMATIN <0.2 Normal 0.0-0.9 [facility] Comment on above: Performed By: #### L 501.9985, L500.4050, L100.0100 #### [facility] [address] [place], [address] ANTISCLERODERM <0.2 Normal 0.0-0.9 [facility] Comment on above: Performed By: #### L 501.9985, L500.4050, L100.0100 #### [facility] [address] [place], [address] CONFIDENTIAL SECRETARY Ab 0.2 AI Normal 0.0-0.9 [facility] Comment on above: Performed By: #### L 501.9985, L500.4050, L100.0100 #### [facility] [address] [place], [address] REYNOLDS Ab <0.2 Normal 0.0-0.9 [facility] Comment on above: Performed By: #### L 501.9985, L500.4050, L100.0100 #### [facility] [address] [place], [address] CBC W/Diff, Automatedon 08-0 8-2023 Absolute Lymph 1.68 X10 3/uL Normal 0.83-4.51 [facility] Comment on above: Performed By: #### L 500.4050, L501.9985, L500.4100, L3100.5440, L501.1400, L100.0100, L501.6710 #### [facility] [address] [place], [address] Absolute Neut 5.7 X10 3/uL Normal 2.0-7.7 [facility] Comment on above: Performed By: #### L 500.4050, L501.9985, L500.4100, L3100.5440, L501.1400, L100.0100, L501.6710 #### [facility] [address] [place], [address] Basophils/100 WBC (Bld) 0.5 % Normal 0-1 [facility] Comment on above: Performed By: #### L 500.4050, L501.9985, L500.4100, L3100.5440, L501.1400, L100.0100, L501.6710 #### [facility] [address] [place], [address] Eosinophils/100 WBC (Bld) 1.3 % Normal 0-5 [facility] Comment on above: Performed By: #### L 500.4050, L501.9985, L500.4100, L3100.5440, L501.1400, L100.0100, L501.6710 #### [facility] [address] [place], [address] Erythrocyte distribution width (RBC) [Ratio] 13.2 % Normal 11.6-14.6 [facility] Comment on above: Performed By: #### L 500.4050, L501.9985, L500.4100, L3100.5440, L501.1400, L100.0100, L501.6710 #### [facility] [address] [place], [address] Hematocrit (Bld) [Volume fraction] 43.8 % Normal 37-47 [facility] Comment on above: Performed By: #### L 500.4050, L501.9985, L500.4100, L3100.5440, L501.1400, L100.0100, L501.6710 #### [facility] [address] [place], [address] Hemoglobin (Bld) [Mass/Vol] 16.0 g/dL High 12.0-15.0 [facility] Comment on above: Performed By: #### L 500.4050, L501.9985, L500.4100, L3100.5440, L501.1400, L100.0100, L501.6710 #### [facility] [address] [place], [address] IG% 0.300 Normal 0.0-0.9 [facility] Comment on above: Result Comment: IG% - Immature Granulocytes (promyelocytes, myelocytes and metamyelocytes) > 1% indicates that a LEFT SHIFT is Present. Performed By: #### L 500.4050, L501.9985, L500.4100, L3100.5440, L501.1400, L100.0100, L501.6710 #### [facility] [address] [place], [address] Lymphocytes/100 WBC (Bld) 21.3 % Normal 19-41 [facility] Comment on above: Performed By: #### L 500.4050, L501.9985, L500.4100, L3100.5440, L501.1400, L100.0100, L501.6710 #### [facility] [address] [place], [address] MCH (RBC) [Entitic mass] 31.9 pg Normal 27.0-32.0 [facility] Comment on above: Performed By: #### L 500.4050, L501.9985, L500.4100, L3100.5440, L501.1400, L100.0100, L501.6710 #### [facility] [address] [place], [address] MCHC (RBC) [Mass/Vol] 36.5 g/dL High 32-36 [facility] Comment on above: Performed By: #### L 500.4050, L501.9985, L500.4100, L3100.5440, L501.1400, L100.0100, L501.6710 #### [facility] [address] [place], [address] MCV (RBC) [Entitic vol] 87.4 fL Normal 81-99 [facility] Comment on above: Performed By: #### L 500.4050, L501.9985, L500.4100, L3100.5440, L501.1400, L100.0100, L501.6710 #### [facility] [address] [place], [address] Monocytes/100 WBC (Bld) 5.2 % Normal 0-10 [facility] Comment on above: Performed By: #### L 500.4050, L501.9985, L500.4100, L3100.5440, L501.1400, L100.0100, L501.6710 #### [facility] [address] [place], [address] Neutrophils/100 WBC (Bld) 71.4 % High 47-70 [facility] Comment on above: Performed By: #### L 500.4050, L501.9985, L500.4100, L3100.5440, L501.1400, L100.0100, L501.6710 #### [facility] [address] [place], [address] Nucleated RBC (Bld) [#/Vol] 0 10*3/uL Normal 0-5 [facility] Comment on above: Performed By: #### L 500.4050, L501.9985, L500.4100, L3100.5440, L501.1400, L100.0100, L501.6710 #### [facility] [address] [place], [address] Platelet mean volume (Bld) [Entitic vol] 10.2 fL Normal 6.2-12.0 [facility] Comment on above: Performed By: #### L 500.4050, L501.9985, L500.4100, L3100.5440, L501.1400, L100.0100, L501.6710 #### [facility] [address] [place], [address] Platelets (Bld) [#/Vol] 332 10*3/uL Normal 150-450 [facility] Comment on above: Performed By: #### L 500.4050, L501.9985, L500.4100, L3100.5440, L501.1400, L100.0100, L501.6710 #### [facility] [address] [place], [address] RBC (Bld) [#/Vol] 5.01 10*6/uL Normal 4.2-5.[address] [facility] Comment on above: Performed By: #### L 500.4050, L501.9985, L500.4100, L3100.5440, L501.1400, L100.0100, L501.6710 #### [facility] [address] [place], [address] RDW SD 42.3 fl Normal 35.1-43.9 [facility] Comment on above: Performed By: #### L 500.4050, L501.9985, L500.4100, L3100.5440, L501.1400, L100.0100, L501.6710 #### [facility] [address] [place], [address] WBC (Bld) [#/Vol] 7.9 10*3/uL Normal 4.4-11.0 [facility] Comment on above: Performed By: #### L 500.4050, L501.9985, L500.4100, L3100.5440, L501.1400, L100.0100, L501.6710 #### [facility] [address] [place], [address] CRPon 03-09-2024 C-REACTIVE PROT 4.84 mg/L High 0.0-3.0 [facility] Comment on above: Result Comment: C-Re active Protein (CRP) provides useful information for the diagnosis, therapy and monitoring of inflammatory processes and associated diseases. For the evaluation of Relative Risk for Cardiovascular Disease, a High Sensitivity CRP (HSCRP) should be ordered. Performed By: #### L 501.9985, L500.4050, L100.0100 #### [facility] [address] [place], [address] Comprehensive Metabolic Prof ilon 03-09-2024 Albumin [Mass/Vol] 4.1 g/dL Normal 3.2-5.0 [facility] Comment on above: Performed By: #### L 501.9985, L500.4050, L100.0100 #### [facility] [address] [place], [address] Albumin/Globulin [Mass ratio] 1.2 {ratio} Normal 0.9-2.4 [facility] Comment on above: Performed By: #### L 501.9985, L500.4050, L100.0100 #### [facility] [address] [place], [address] ALK P 93 U/L Normal 45-117 [facility] Comment on above: Performed By: #### L 501.9985, L500.4050, L100.0100 #### [facility] [address] [place], [address] ALT [Catalytic activity/Vol] 43 U/L Normal 13-56 [facility] Comment on above: Performed By: #### L 501.9985, L500.4050, L100.0100 #### [facility] [address] [place], [address] AST [Catalytic activity/Vol] 25 U/L Normal 15-37 [facility] Comment on above: Performed By: #### L 501.9985, L500.4050, L100.0100 #### [facility] [address] [place], [address] Bilirubin [Mass/Vol] 0.90 mg/dL Normal 0.20-1.00 [facility] Comment on above: Result Comment: For patients on eltrombopag therapy, use of Dimension [place] TBIL is not recommended. Performed By: #### L 501.9985, L500.4050, L100.0100 #### [facility] [address] [place], [address] BUN/CRE 21.4 RATIO High 10-20 [facility] Comment on above: Performed By: #### L 501.9985, L500.4050, L100.0100 #### [facility] [address] [place], [address] CA,Total 9.7 mg/dL Normal 8.5-10.1 [facility] Comment on above: Performed By: #### L 501.9985, L500.4050, L100.0100 #### [facility] [address] [place], [address] Chloride [Moles/Vol] 109 mmol/L High 98-107 [facility] Comment on above: Performed By: #### L 501.9985, L500.4050, L100.0100 #### [facility] [address] [place], [address] CO2 [Moles/Vol] 25.0 mmol/L Normal 21.0-32.0 [facility] Comment on above: Performed By: #### L 501.9985, L500.4050, L100.0100 #### [facility] [address] [place], [address] Creatinine [Mass/Vol] 0.79 mg/dL Normal 0.55-1.02 [facility] Comment on above: Result Comment: The validity of the calculated GFR GFRAA in patients over 70 years has not been determined. Clinical correlation is essential. Performed By: #### L 501.9985, L500.4050, L100.0100 #### [facility] [address] [place], [address] EST GFR - AA 94 mL/min Normal >60 [facility] Comment on above: Result Comment: Afri can [place] GFR Calc Performed By: #### L 501.9985, L500.4050, L100.0100 #### [facility] [address] [place], [address] GAP 6 Normal 5-15 [facility] Comment on above: Performed By: #### L 501.9985, L500.4050, L100.0100 #### [facility] [address] [place], [address] GFR/1.73 sq M.predicted among non-blacks MDRD (S/P/Bld) [Vol rate/Area] 78 mL/min/{1.73_m2} Normal >60 [facility] Comment on above: Result Comment: Non- GFR Calc Performed By: #### L 501.9985, L500.4050, L100.0100 #### [facility] [address] [place], [address] Globulin (S) [Mass/Vol] 3.4 g/dL Normal 2.2-4.2 [facility] Comment on above: Performed By: #### L 501.9985, L500.4050, L100.0100 #### [facility] [address] [place], [address] Glucose [Mass/Vol] 108 mg/dL High 74-106 [facility] Comment on above: Result Comment: Fast ing Glucose result from 100 to 125 mg/dL suggests IMPAIRED HOMEOSTASIS per A.D.A. criteria. Performed By: #### L 501.9985, L500.4050, L100.0100 #### [facility] [address] [place], [address] Potassium [Moles/Vol] 3.5 mmol/L Normal 3.5-5.1 [facility] Comment on above: Performed By: #### L 501.9985, L500.4050, L100.0100 #### [facility] [address] [place], [address] Sodium [Moles/Vol] 140 mmol/L Normal 136-145 [facility] Comment on above: Performed By: #### L 501.9985, L500.4050, L100.0100 #### [facility] [address] [place], [address] T PROT 7.5 g/dL Normal 6.4-8.2 [facility] Comment on above: Performed By: #### L 501.9985, L500.4050, L100.0100 #### [facility] [address] [place], [address] Urea nitrogen [Mass/Vol] 17 mg/dL Normal 7-18 [facility] Comment on above: Performed By: #### L 501.9985, L500.4050, L100.0100 #### [facility] [address] [place], [address] Hemoglobin A1con 03-09-2024 HbA1c (Bld) [Mass fraction] 6.1 % High 3.8-5.6 [facility] Comment on above: Result Comment: Norm al < 5.7 % Prediabetic 5.7 - 6.4 % Diabetic >or= 6.5 % Please note range changes. Performed By: #### L 501.9985, L500.4050, L100.0100 #### [facility] [address] [place], [address] Lipid Profileon 03-09-2024 Cholesterol [Mass/Vol] 168 mg/dL Normal 200 [facility] Comment on above: Result Comment: <200 mg/dL Desirable 200-240 mg/dL Borderline >240 mg/dL High Risk Performed By: #### L 501.9985, L500.4050, L100.0100 #### [facility] [address] [place], [address] Cholesterol in HDL [Mass/Vol] 56 mg/dL Normal [facility] Comment on above: Result Comment: The drugs N-Acetylcysteine and Metamizole may falsely depress this assay. Reference Range HDL <40 mg/dL Low HDL Cholesterol HDL >or= 60 mg/dL High HDL Cholesterol Performed By: #### L 501.9985, L500.4050, L100.0100 #### [facility] [address] [place], [address] Cholesterol in LDL [Mass/Vol] 91 mg/dL Normal 0-130 [facility] Comment on above: Performed By: #### L 501.9985, L500.4050, L100.0100 #### [facility] [address] [place], [address] Cholesterol in VLDL [Mass/Vol] 21 mg/dL Normal 5-40 [facility] Comment on above: Performed By: #### L 501.9985, L500.4050, L100.0100 #### [facility] [address] [place], [address] Triglyceride [Mass/Vol] 103 mg/dL Normal [facility] Comment on above: Result Comment: The drugs N-Acetylcysteine and Metamizole may falsely depress this assay. Serum Triglycerides Reference Interval Normal <150 mg/dL Borderline high 150 - 199 mg/dL High 200 - 499 mg/dL Very High > or = 500 mg/dL Performed By: #### L 501.9985, L500.4050, L100.0100 #### [facility] [address] [place], [address] Uric Acidon 03-09-2024 URIC 5.2 mg/dL Normal 2.6-6.0 [facility] Comment on above: Result Comment: The drugs N-Acetylcysteine and Metamizole may falsely depress this assay. Performed By: #### L 501.9985, L500.4050, L100.0100 #### [facility] [address] [place], [address] BI MAMMO BILATERAL DIAGNOSTI C TOMOSYNTHESISon 02-02-2024 BI MAMMO BILATERAL DIAGNOSTIC TOMOSYNTHESIS Interpreted By: Stormy Bruno, STUDY: BI MAMMO BILATERAL DIAGNOSTIC TOMOSYNTHESIS; BI US BREAST LIMITED RIGHT; 02/02/2024 11:10 am; 02/02/2024 9:34 am ACCESSION NUMBER(S): [id number]; [id number] ORDERING CLINICIAN: CHELI WRIGHT INDICATION: Follow-up of focal asymmetries in the right breast evaluated at outside facility on 03/02/2022 and 11/02/2022. COMPARISON: Outside facility mammogram 11/02/2022, 03/02/2022, 01/13/2022. FINDINGS: MAMMOGRAPHY: 2D and tomosynthesis images were reviewed at 1 mm slice thickness. Density: There are areas of scattered fibroglandular tissue. The previously seen focal asymmetries in central medial right breast at middle and posterior depths are less conspicuous compared to prior exams and considered benign. An oval circumscribed low-density mass is noted in central lateral right breast at middle depth. No suspicious masses or calcifications are identified in either breast. ULTRASOUND: Targeted ultrasound was performed by a registered radiology technician for remote interpretation in the central lateral right breast. A simple cyst is identified at 9 o'clock, 5 cm from the nipple measuring 1.5 x 0.4 x 1.0 cm. This corresponds with the mass seen on mammogram. IMPRESSION: 1. Interval decrease in size of previously seen focal asymmetries in the right breast. These are considered benign with no need for further imaging follow-up. 2. Benign cyst in the right breast. No imaging follow-up is needed for this finding. 3. No mammographic evidence of malignancy in either breast. Patient may return to annual screening mammography. BI-RADS CATEGORY: BI-RADS Category: 2 Benign. Recommendation: Annual Screening. Recommended Date: 1 Year. Laterality: Bilateral. For any future breast imaging appointments, please call [phone] MACRO: None Signed by: Stormy Bruno 02/02/2024 3:03 PM Dictation workstation: [id number] [facility] BI US BREAST LIMITED RIGHTon 02-02-2024 BI US BREAST LIMITED RIGHT Interpreted By: Stormy Bruno, STUDY: BI MAMMO BILATERAL DIAGNOSTIC TOMOSYNTHESIS; BI US BREAST LIMITED RIGHT; 02/02/2024 11:10 am; 02/02/2024 9:34 am ACCESSION NUMBER(S): [id number]; [id number] ORDERING CLINICIAN: CHELI WRIGHT INDICATION: Follow-up of focal asymmetries in the right breast evaluated at outside facility on 03/02/2022 and 11/02/2022. COMPARISON: Outside facility mammogram 11/02/2022, 03/02/2022, 01/13/2022. FINDINGS: MAMMOGRAPHY: 2D and tomosynthesis images were reviewed at 1 mm slice thickness. Density: There are areas of scattered fibroglandular tissue. The previously seen focal asymmetries in central medial right breast at middle and posterior depths are less conspicuous compared to prior exams and considered benign. An oval circumscribed low-density mass is noted in central lateral right breast at middle depth. No suspicious masses or calcifications are identified in either breast. ULTRASOUND: Targeted ultrasound was performed by a registered radiology technician for remote interpretation in the central lateral right breast. A simple cyst is identified at 9 o'clock, 5 cm from the nipple measuring 1.5 x 0.4 x 1.0 cm. This corresponds with the mass seen on mammogram. IMPRESSION: 1. Interval decrease in size of previously seen focal asymmetries in the right breast. These are considered benign with no need for further imaging follow-up. 2. Benign cyst in the right breast. No imaging follow-up is needed for this finding. 3. No mammographic evidence of malignancy in either breast. Patient may return to annual screening mammography. BI-RADS CATEGORY: BI-RADS Category: 2 Benign. Recommendation: Annual Screening. Recommended Date: 1 Year. Laterality: Bilateral. For any future breast imaging appointments, please call [phone]). MACRO: None Signed by: Stormy Bruno 02/02/2024 3:03 PM Dictation workstation: [id number] [facility] DBT Breast - bilateral diagn osticon 02-02-2024 Radiology Study observation (narrative) [facility] Work Phone: No Panel Informationon 02-01 1. Interval decrease in size of previously seen focal asymmetries in the right breast. These are considered benign with no need for further imaging follow-up. 2. Benign cyst in the right breast. No imaging follow-up is needed for this finding. 3. No mammographic evidence of malignancy in either breast. Patient may return to annual screening mammography. BI-RADS CATEGORY: BI-RADS Category: 2 Benign. Recommendation: Annual Screening. Recommended Date: 1 Year. Laterality: Bilateral. For any future breast imaging appointments, please call [phone] MACRO: None Signed by: Stormy Bruno 02/02/2024 3:03 PM Dictation workstation: [id number] [facility] Interpreted By: Stormy Bruno, STUDY: BI MAMMO BILATERAL DIAGNOSTIC TOMOSYNTHESIS; BI US BREAST LIMITED RIGHT; 02/02/2024 11:10 am; 02/02/2024 9:34 am ACCESSION NUMBER(S): [id number]; [id number] ORDERING CLINICIAN: CHELI WRIGHT INDICATION: Follow-up of focal asymmetries in the right breast evaluated at outside facility on 03/02/2022 and 11/02/2022. COMPARISON: Outside facility mammogram 11/02/2022, 03/02/2022, 01/13/2022. FINDINGS: MAMMOGRAPHY: 2D and tomosynthesis images were reviewed at 1 mm slice thickness. Density: There are areas of scattered fibroglandular tissue. The previously seen focal asymmetries in central medial right breast at middle and posterior depths are less conspicuous compared to prior exams and considered benign. An oval circumscribed low-density mass is noted in central lateral right breast at middle depth. No suspicious masses or calcifications are identified in either breast. ULTRASOUND: Targeted ultrasound was performed by a registered radiology technician for remote interpretation in the central lateral right breast. A simple cyst is identified at 9 o'clock, 5 cm from the nipple measuring 1.5 x 0.4 x 1.0 cm. This corresponds with the mass seen on mammogram. [facility] - 02/02/2024 Interpreted By: Stormy Bruno, STUDY: BI MAMMO BILATERAL DIAGNOSTIC TOMOSYNTHESIS; BI US BREAST LIMITED RIGHT; 02/02/2024 11:10 am; 02/02/2024 9:34 am ACCESSION NUMBER(S): [id number]; [id number] ORDERING CLINICIAN: CHELI WRIGHT INDICATION: Follow-up of focal asymmetries in the right breast evaluated at outside facility on 03/02/2022 and 11/02/2022. COMPARISON: Outside facility mammogram 11/02/2022, 03/02/2022, 01/13/2022. FINDINGS: MAMMOGRAPHY: 2D and tomosynthesis images were reviewed at 1 mm slice thickness. Density: There are areas of scattered fibroglandular tissue. The previously seen focal asymmetries in central medial right breast at middle and posterior depths are less conspicuous compared to prior exams and considered benign. An oval circumscribed low-density mass is noted in central lateral right breast at middle depth. No suspicious masses or calcifications are identified in either breast. ULTRASOUND: Targeted ultrasound was performed by a registered radiology technician for remote interpretation in the central lateral right breast. A simple cyst is identified at 9 o'clock, 5 cm from the nipple measuring 1.5 x 0.4 x 1.0 cm. This corresponds with the mass seen on mammogram. IMPRESSION: 1. Interval decrease in size of previously seen focal asymmetries in the right breast. These are considered benign with no need for further imaging follow-up. 2. Benign cyst in the right breast. No imaging follow-up is needed for this finding. 3. No mammographic evidence of malignancy in either breast. Patient may return to annual screening mammography. BI-RADS CATEGORY: BI-RADS Category: 2 Benign. Recommendation: Annual Screening. Recommended Date: 1 Year. Laterality: Bilateral. For any future breast imaging appointments, please call [phone]). MACRO: None Signed by: Stormy Bruno 02/02/2024 3:03 PM Dictation workstation: [id number] [facility] Work Phone: No Panel InformationOrdered By: Stormy Bruno on 02-02-2024 [facility] Work Phone: US Breast - right limitedon 02-02-2024 Radiology Study observation (narrative) [facility] Work Phone: BI TRANSFER OF OUTSIDE FILMS on 01-25-2024 BI TRANSFER OF OUTSIDE FILMS Outside images for comparison or treatment purposes, not interpreted by Radiologists. [facility] BI TRANSFER OF OUTSIDE FILMS Outside images for comparison or treatment purposes, not interpreted by Radiologists. Normal [facility] BI TRANSFER OF OUTSIDE FILMS Outside images for comparison or treatment purposes, not interpreted by Radiologists. Normal [facility] Study Interpretation of outs maureen studyon 01-25-2024 Outside images for comparison or treatment purposes, not interpreted by Radiologists. IMAGING Outside images for comparison or treatment purposes, not interpreted by Radiologists. IMAGING Outside images for comparison or treatment purposes, not interpreted by Radiologists. IMAGING Outside images for comparison or treatment purposes, not interpreted by Radiologists. IMAGING CBC W Auto Differential pane l (Bld)on 01-11-2024 Basophils (Bld) [#/Vol] 0.08 10*3/uL [facility] Basophils/100 WBC (Bld) 1.0 % 0.0 - 2.0 % [facility] Eosinophils (Bld) [#/Vol] 0.19 10*3/uL [facility] Eosinophils/100 WBC (Bld) 2.5 % 0.0 - 6.0 % [facility] Erythrocyte distribution width (RBC) [Ratio] 13.5 % 11.5 - 14.5 % [facility] Hematocrit (Bld) [Volume fraction] 46.4 % High 36.0 - 46.0 % [facility] Hemoglobin (Bld) [Mass/Vol] 15.7 g/dL 12.0 - 16.0 g/dL [facility] Immature granulocytes (Bld) [#/Vol] 0.05 10*3/uL [facility] Immature granulocytes/100 WBC (Bld) 0.7 % 0.0 - 0.9 % [facility] Comment on above: Immature Granulocyte Count (IG) includes promyelocytes, myelocytes and metamyelocytes but does not include bands. Percent differential counts (%) should be interpreted in the context of the absolute cell counts (cells/UL). Interpretation and review of laboratory results Abnormal [facility] Lymphocytes (Bld) [#/Vol] 1.76 10*3/uL [facility] Lymphocytes/100 WBC (Bld) 23.0 % 13.0 - 44.0 % [facility] MCH (RBC) [Entitic mass] 31.0 pg 26.0 - 34.0 pg [facility] MCHC (RBC) [Mass/Vol] 33.8 g/dL 32.0 - 36.0 g/dL [facility] MCV (RBC) [Entitic vol] 92 fL 80 - 100 fL [facility] Monocytes (Bld) [#/Vol] 0.36 10*3/uL [facility] Monocytes/100 WBC (Bld) 4.7 % 2.0 - 10.0 % [facility] Neutrophils (Bld) [#/Vol] 5.21 10*3/uL [facility] Comment on above: Percent differential counts (%) should be interpreted in the context of the absolute cell counts (cells/uL). Neutrophils/100 WBC (Bld) 68.1 % 40.0 - 80.0 % [facility] Nucleated RBC/100 WBC (Bld) [Ratio] 0.0 % [facility] Platelets (Bld) [#/Vol] 312 10*3/uL [facility] RBC (Bld) [#/Vol] 5.06 10*6/uL [facility] WBC (Bld) [#/Vol] 7.7 10*3/uL [facility] Basophils (Bld) [#/Vol] 0.08 x10*3/uL Normal 0.00-0.10 [facility] Comment on above: Performed By: #### 5 7021-8 #### POPPY Jurado ([id number]) [facility] ([facility]) [address] [place] [address] Basophils/100 WBC (Bld) 1.0 % Normal 0.0-2.[address] [facility] Comment on above: Performed By: #### 5 7021-8 #### POPPY REEDMOPUJA L ([id number]) [facility] ([facility]) [address] [place] [address] Eosinophils (Bld) [#/Vol] 0.19 x10*3/uL Normal 0.00-0.70 [facility] Comment on above: Performed By: #### 5 7021-8 #### POPPY RAMOS L ([id number]) [facility] ([facility]) [address] [place] [address] Eosinophils/100 WBC (Bld) 2.5 % Normal 0.0-6.0 [facility] Comment on above: Performed By: #### 5 7021-8 #### POPPY Jurado ([id number]) [facility] ([facility]) [address] [place] [address] Erythrocyte distribution width (RBC) [Ratio] 13.5 % Normal 11.5-14.5 [facility] Comment on above: Performed By: #### 5 7021-8 #### POPPY Jurado ([id number]) [facility] ([facility]) [address] [place] [address] Hematocrit (Bld) [Volume fraction] 46.4 % High 36.0-46.0 [facility] Comment on above: Performed By: #### 5 7021-8 #### POPPY Jurado ([id number]) [facility] ([facility]) [address] [place] [address] Hemoglobin (Bld) [Mass/Vol] 15.7 g/dL Normal 12.0-16.0 [facility] Comment on above: Performed By: #### 5 7021-8 #### POPPY Jurado ([id number]) [facility] ([facility]) [address] [place] [address] Immature granulocytes (Bld) [#/Vol] 0.05 x10*3/uL Normal 0.00-0.70 [facility] Comment on above: Performed By: #### 5 7021-8 #### POPPY Jurado ([id number]) [facility] ([facility]) [address] [place] [address] Immature granulocytes/100 WBC (Bld) 0.7 % Normal 0.0-0.9 [facility] Comment on above: Result Comment: Jannet ture Granulocyte Count (IG) includes promyelocytes, myelocytes and metamyelocytes but does not include bands. Percent differential counts (%) should be interpreted in the context of the absolute cell counts (cells/UL). Performed By: #### 5 7021-8 #### POPPY Jurado ([id number]) [facility] ([facility]) [address] [place] [address] Lymphocytes (Bld) [#/Vol] 1.76 x10*3/uL Normal 1.20-4.80 [facility] Comment on above: Performed By: #### 5 7021-8 #### POPPY Jurado ([id number]) [facility] ([facility]) [address] [place] [address] Lymphocytes/100 WBC (Bld) 23.0 % Normal 13.0-44.0 [facility] Comment on above: Performed By: #### 5 7021-8 #### POPPY Jurado ([id number]) [facility] ([facility]) [address] [place] [address] MCH (RBC) [Entitic mass] 31.0 pg Normal 26.0-34.0 [facility] Comment on above: Performed By: #### 5 7021-8 #### POPPY Jurado ([id number]) [facility] ([facility]) [address] [place] [address] MCHC (RBC) [Mass/Vol] 33.8 g/dL Normal 32.0-36.0 [facility] Comment on above: Performed By: #### 5 7021-8 #### POPPY Jurado ([id number]) [facility] ([facility]) [address] [place] [address] MCV (RBC) [Entitic vol] 92 fL Normal 80-[address] [facility] Comment on above: Performed By: #### 5 7021-8 #### POPPY Jurado ([id number]) [facility] ([facility]) [address] [place] [address] Monocytes (Bld) [#/Vol] 0.36 x10*3/uL Normal 0.10-1.00 [facility] Comment on above: Performed By: #### 5 7021-8 #### POPPY Jurado ([id number]) [facility] ([facility]) [address] [place] [address] Monocytes/100 WBC (Bld) 4.7 % Normal 2.0-10.[address] [facility] Comment on above: Performed By: #### 5 7021-8 #### POPPY Jurado ([id number]) [facility] ([facility]) [id number] [place] [address] 35491 Neutrophils (Bld) [#/Vol] 5.21 x10*3/uL Normal 1.20-7.70 [facility] Comment on above: Result Comment: Perc ent differential counts (%) should be interpreted in the context of the absolute cell counts (cells/uL). Performed By: #### 5 7021-8 #### POPPY Jurado ([id number]) [facility] ([facility]) [address] [place] [address] 19011 Neutrophils/100 WBC (Bld) 68.1 % Normal 40.0-80.0 [facility] Comment on above: Performed By: #### 5 7021-8 #### POPPY Jurado ([id number]) [facility] ([facility]) [address] [place] [address] 67407 Nucleated RBC/100 WBC (Bld) [Ratio] 0.0 /100 WBCs Normal 0.0-0.0 [facility] Comment on above: Performed By: #### 5 7021-8 #### POPPY Jurado ([id number]) [facility] ([facility]) [address] [place] [address] 48553 Platelets (Bld) [#/Vol] 312 x10*3/uL Normal 150-450 [facility] Comment on above: Performed By: #### 5 7021-8 #### POPPY Jurado ([id number]) [facility] ([facility]) [address] [place] [address] 06992 RBC (Bld) [#/Vol] 5.06 x10*6/uL Normal 4.00-5.20 [facility] Comment on above: Performed By: #### 5 7021-8 #### POPPY Jurado ([id number]) [facility] ([facility]) [address] [place] [address] WBC (Bld) [#/Vol] 7.7 x10*3/uL Normal 4.4-11.3 [facility] Comment on above: Performed By: #### 5 7021-8 #### POPPY Jurado ([id number]) [facility] ([facility]) [id number] [place] [address] 27576 Comprehensive metabolic 2000 panelon 01-11-2024 Albumin BCP dye [Mass/Vol] 4.5 g/dL Normal 3.4-5.0 [facility] Comment on above: Performed By: #### 2 4323-8 #### POPPY Jurado ([id number]) [facility] ([facility]) [address] [place] [address] 07599 ALP [Catalytic activity/Vol] 71 U/L Normal 33-136 [facility] Comment on above: Performed By: #### 2 4323-8 #### POPPY Jurado ([id number]) [facility] ([facility]) [address] [place] [address] 22900 ALT With P-5'-P [Catalytic activity/Vol] 20 U/L Normal 7-45 [facility] Comment on above: Result Comment: Tiffany ents treated with Sulfasalazine may generate falsely decreased results for ALT. Performed By: #### 2 4323-8 #### POPPY Jurado ([id number]) [facility] ([facility]) [address] [place] [address] 75419 Anion gap [Moles/Vol] 13 mmol/L Normal 10-20 [facility] Comment on above: Performed By: #### 2 4323-8 #### POPPY Jurado ([id number]) [facility] ([facility]) [address] [place] [address] 69470 AST With P-5'-P [Catalytic activity/Vol] 20 U/L Normal 9-39 [facility] Comment on above: Result Comment: MILD HEMOLYSIS DETECTED. The result may be falsely elevated due to hemolysis or other interferents. Clinical correlation is recommended. Repeat testing may be considered. Performed By: #### 2 4323-8 #### POPPY Jurado ([id number]) [facility] ([facility]) [address] [place] [address] 85592 Bilirubin [Mass/Vol] 0.7 mg/dL Normal 0.0-1.2 [facility] Comment on above: Performed By: #### 2 4323-8 #### POPPY Jurado ([id number]) [facility] ([facility]) [address] [place] [address] 10556 Calcium [Mass/Vol] 10.0 mg/dL Normal 8.6-10.6 [facility] Comment on above: Performed By: #### 2 4323-8 #### POPPY Jurado ([id number]) [facility] ([facility]) [address] [place] [address] 32957 Chloride [Moles/Vol] 107 mmol/L Normal 98-107 [facility] Comment on above: Performed By: #### 2 4323-8 #### POPPY Jruado ([id number]) [facility] ([facility]) [address] [place] [address] 92610 CO2 [Moles/Vol] 27 mmol/L Normal 21-32 [facility] Comment on above: Performed By: #### 2 4323-8 #### POPPY Jurado ([id number]) [facility] ([facility]) [address] [place] [address] 21717 Creatinine [Mass/Vol] 0.62 mg/dL Normal 0.50-1.05 [facility] Comment on above: Performed By: #### 2 4323-8 #### POPPY Jurado ([id number]) [facility] ([facility]) [address] [place] [address] 39491 GFR/1.73 sq M.predicted MDRD (S/P/Bld) [Vol rate/Area] mL/min/{1.73_m2} Normal >60 [facility] Comment on above: Result Comment: Calc ulations of estimated GFR are performed using the 2020 CKD-EPI Study Refit equation without the race variable for the IDMS-Traceable creatinine methods. https://jasn.asnjournals.org/content/early/ASN.2020 910588 Performed By: #### 2 4323-8 #### POPPY Jurado ([id number]) [facility] ([facility]) [address] [place] [address] Glucose [Mass/Vol] 119 mg/dL High 74-99 [facility] Comment on above: Performed By: #### 2 4323-8 #### POPPY Jurado ([id number]) [facility] ([facility]) [address] [place] [address] 45628 Potassium [Moles/Vol] 5.0 mmol/L Normal 3.5-5.3 [facility] Comment on above: Result Comment: MILD HEMOLYSIS DETECTED. The result may be falsely elevated due to hemolysis or other interferents. Clinical correlation is recommended. Repeat testing may be considered. Performed By: #### 2 4323-8 #### POPPY RAMOS L ([id number]) [facility] ([facility]) [address] [place] [address] 11404 Protein [Mass/Vol] 7.2 g/dL Normal 6.4-8.2 [facility] Comment on above: Performed By: #### 2 4323-8 #### POPPY RAMOS L ([id number]) [facility] ([facility]) [address] [place] [address] 59062 Sodium [Moles/Vol] 142 mmol/L Normal 136-145 [facility] Comment on above: Performed By: #### 2 4323-8 #### POPPY WEINSTEINTZBRENDA L ([id number]) [facility] ([facility]) [address] [place] [address] 19054 Urea nitrogen [Mass/Vol] 15 mg/dL Normal 6-23 [facility] Comment on above: Performed By: #### 2 4323-8 #### POPPY Juraod ([id number]) [facility] ([facility]) [address] [place] [address] HbA1c (Bld) [Mass fraction]o n 01-11-2024 Average glucose Estimated from glycated hemoglobin (Bld) [Mass/Vol] 140 mg/dL Not Established [facility] Interpretation and review of laboratory results Abnormal [facility] Diagnosis of Diabetes-Adults Non-Diabetic: < or = 5.6% Increased risk for developing diabetes: 5.7-6.4% Diagnostic of diabetes: > or = 6.5% Monitoring of Diabetes Age (y).................. ..... Therapeutic Goal (%) Adults: >18.................. .......<7.0 Pediatrics: 13-18................ ...<7.5 Pediatrics: 7-12................. ...<8.0 Pediatrics: 0-6.................. ... 7.5-8.5 [employer] [employer]. Diabetes Care 33(S1), Aug 2009 [facility] Average glucose Estimated from glycated hemoglobin (Bld) [Mass/Vol] 140 mg/dL Normal Not Established [facility] Comment on above: Order Comment: Diagn osis of Diabetes-Adults Non-Diabetic: < or = 5.6% Increased risk for developing diabetes: 5.7-6.4% Diagnostic of diabetes: > or = 6.5% Monitoring of Diabetes Age (y)....................... Therapeutic Goal (%) Adults: >18.........................<7.0 Pediatrics: 13-18...................<7.5 Pediatrics: 7-12....................<8.0 Pediatrics: 0-6..................... 7.5-8.5 [employer] [employer]. Diabetes Care 33(S1)Aug 2009 Performed By: #### 4 548-4 #### POPPY Jurado ([id number]) [facility] ([facility]) [address] [place] [address] Hemoglobin A1Con 01-11-2024 HbA1c (Bld) [Mass fraction] 6.5 % High see below [facility] Hemoglobin A1c/Hemoglobin.to michelle 01-11-2024 HbA1c (Bld) [Mass fraction] 6.5 % High see below [facility] Comment on above: Order Comment: Diagn osis of Diabetes-Adults Non-Diabetic: < or = 5.6% Increased risk for developing diabetes: 5.7-6.4% Diagnostic of diabetes: > or = 6.5% Monitoring of Diabetes Age (y)....................... Therapeutic Goal (%) Adults: >18.........................<7.0 Pediatrics: 13-18...................<7.5 Pediatrics: 7-12....................<8.0 Pediatrics: 0-6..................... 7.5-8.5 [employer]. Diabetes Care 33(S1)Aug 2009 Performed By: #### 4 548-4 #### POPPY Jurado ([id number]) [facility] ([facility]) [address] [place] [address] Lipid 1996 panelon 4 Cholesterol [Mass/Vol] 181 mg/dL Normal 0-199 Un [facility] Comment on above: Result Comment: Age Desirable Borderline High High 0-19 Y 0 - 169 170 - 199 >/= 200 20-24 Y 0 - 189 190 - 224 >/= 225 >24 Y 0 - 199 200 - 239 >/= 240 All ranges are based on fasting samples. Specific therapeutic targets will vary based on patient-specific cardiac risk. Pediatric guidelines reference:Pediatrics 2011, 128(S5).Adult guidelines reference: NCEP ATPIII Guidelines,GABRIELA 2001, 258:2486-97 Venipuncture immediately after or during the administration of Metamizole may lead to falsely low results. Testing should be performed immediately prior to Metamizole dosing. Performed By: #### 2 4331-1 #### POPPY Jurado ([id number]) [facility] ([facility]) [address] [place] [address] 51942 Cholesterol in HDL [Mass/Vol] 60.0 mg/dL Normal [facility] Comment on above: Result Comment: Age Very Low Low Normal High 0-19 Y < 35 < 40 40-45 ---- 20-24 Y ---- < 40 >45 ---- >24 Y ---- < 40 40-60 >60 Performed By: #### 2 4331-1 #### POPPY Jurado ([id number]) [facility] ([facility]) [address] [place] [address] 61979 Cholesterol in LDL [Mass/Vol] 102 mg/dL High <=99 [facility] Comment on above: Result Comment: Near Borderline AGE Desirable Optimal High High Very High 0-19 Y 0 - 109 --- 110-129 >/= 130 ---- 20-24 Y 0 - 119 --- 120-159 >/= 160 ---- >24 Y 0 - 99 100-129 130-159 160-189 >/=190 Performed By: #### 2 4331-1 #### POPPY REEDMOTZER L ([id number]) [facility] ([facility]) [address] [place] [address] 26753 Cholesterol in VLDL [Mass/Vol] 19 mg/dL Normal 0-40 [facility] Comment on above: Performed By: #### 2 4331-1 #### POPPY Jurado ([id number]) [facility] ([facility]) [address] [place] [address] 97135 CHOLESTEROL/HDL RATIO 3.0 Normal [facility] Comment on above: Result Comment: Ref Values Desirable < 3.4 High Risk > 5.0 Performed By: #### 2 4331-1 #### POPPY Jurado ([id number]) [facility] ([facility]) [address] [place] [address] NON HDL CHOLESTEROL 121 mg/dL Normal 0-149 [facility] Comment on above: Result Comment: Age Desirable Borderline High High Very High 0-19 Y 0 - 119 120 - 144 >/= 145 >/= 160 20-24 Y 0 - 149 150 - 189 >/= 190 ---- >24 Y 30 mg/dL above LDL Cholesterol goal Performed By: #### 2 4331-1 #### POPPY Jurado ([id number]) [facility] ([facility]) [address] [place] [address] 71724 Triglyceride [Mass/Vol] 96 mg/dL Normal 0-[address] [facility] Comment on above: Result Comment: Age Desirable Borderline High High Very High 0 D-90 D 19 - 174 ---- ---- ---- 91 D- 9 Y 0 - 74 75 - 99 >/= 100 ---- 10-19 Y 0 - 89 90 - 129 >/= 130 ---- 20-24 Y 0 - 114 115 - 149 >/= 150 ---- >24 Y 0 - 149 150 - 199 200- 499 >/= 500 Venipuncture immediately after or during the administration of Metamizole may lead to falsely low results. Testing should be performed immediately prior to Metamizole dosing. Performed By: #### 2 4331-1 #### POPPY Jurado ([id number]) [facility] ([facility]) [address] [place] [address] TSH WITH REFLEX TO FREE T4 I F ABNORMALon 01-11-2024 TSH Qn 1.90 m[IU]/L Normal 0.44-3.98 [facility] Comment on above: Order Comment: TSH t esting is performed using different testing methodology at [facility] than at other [facility]. Direct result comparisons should only be made within the same method. Performed By: #### T HYDS #### POPPY RACHEL Jurado ([id number]) [facility] ([facility]) [address] [place] [address] ANES POSTPROC EVALon 023 ANES POSTPROC EVAL HNO ID: [id number] Author: Diane Lu MD Service: Anesthesiology Author Type: Anesthesiologist Type: Anesthesia Postprocedure Evaluation Filed: 07/23/2023 8:31 AM Note Text: POST ANESTHESIA EVALUATION NOTE : 1960 Procedure Summary Date: 07/23/23 Room / Location: [facility] Endoscopy Anesthesia Start: 734 Anesthesia Stop: 804 Procedure: COLONOSCOPY SCREENING Diagnosis: Encounter for screening for malignant neoplasm of colon Family history of colonic polyps (Screening for colorectal malignant neoplasm) Scheduled Providers: Gena Menendez MD; Cj Grimaldo APRN.GRINDING OPERATOR Responsible Provider: Diane Lu MD Anesthesia Type: MAC ASA Status: 2 Anesthesia Type: MAC Last Vitals Vitals Value Taken Time BP 124/72 07/23/23 0815 Temp 36 ?C (96.8 ?F) 07/23/23 0804 Pulse 61 07/23/23 0829 Resp 15 07/23/23 0829 SpO2 97 % 07/23/23 0829 Vitals shown include unfiled device data. Post Anesthesia Patient Status Patient Evaluation: PACU. PACU/ICU Patient Condition: stable. Anticipated Disposition: phase 2 then home. Neurological Status: aware and responsive. Pulmonary Status: breathing comfortably on room air Airway Control: returned to baseline unsupported. Cardiovascular Status: stable. Pain Management: clinically adequate - multimodal analgesia pain management approach Postoperative Hydration: acceptable. Intraoperative Events: no significant anesthesia events Post Operative Nausea/Vomiting Status: no significant post operative nausea or vomiting Recommendation: continue current plan of care. Anesthesia Observations No Documentation SIGNATURE: Diane Lu MD PATIENT NAME: Juan Olsen DATE: July 23, 2023 TIME: 8:31 AM CSN: [id number] Normal [facility] ANES PRE-OPon 07-23-2023 ANES PRE-OP HNO ID: [id number] Author: Simon Lane MD Service: Anesthesiology Author Type: Anesthesiologist Type: Anesthesia Preprocedure Evaluation Filed: 07/23/2023 7:20 AM Note Text: ANESTHESIOLOGY DAY OF SURGERY NOTE : 1960 Procedure Information Date/Time: 07/23/23729 Scheduled providers: Gena Menendez MD; Cj Grimaldo APRN.GRINDING OPERATOR Procedure: COLONOSCOPY SCREENING Location: [facility] Endoscopy Estimated body mass index is 32.12 kg/m? as calculated from the following: Height as of this encounter: 154.9 cm (5' 1). Weight as of this encounter: 77.1 kg (170 lb). Most recent hematocrit and potassium results: Hematocrit 33.4 01/17/2022 Potassium 3.2 01/17/2022 Relevant Problems ANESTHESIA (+) Sleep apnea, unspecified CARDIO (+) Essential hypertension ENDO (+) Acquired hypothyroidism PULMONARY (+) Sleep apnea, unspecified I - PHYSICAL EVALUATION AIRWAY Patient intubated: No. Tracheostomy tube not present Mallampati: II. TM distance: >3 FB. Neck ROM: full ROM without neurological symptoms. Mouth opening: adequate. Short neck: no. Thick neck: no DENTAL Dental findings: teeth intact. Additional exam findings: yes. CARDIOVASCULAR Rhythm: regular PULMONARY Breath sounds clear to auscultation. II - ANESTHESIA PLAN ASA Score: 2 Anesthetic Plan: MAC The patient is not a current smoker. NPO Status: adequate Anesthetic plan additional comments: BS 248 recently started metformin . Beta Shell Monitoring Plan Monitoring plan: standard ASA. Post Procedure Analgesic Plan Postoperative analgesic plan: multimodal analgesia. Informed Consent Anesthetic risks, benefits, alternatives, personnel and consent discussed: yes. Patient / Responsible Green Party agrees to proceed: yes Patient / Surrogate agrees to blood products: blood products not planned DNR status not reviewed with patient and/or family prior to surgery. Significant changes in the patient condition since the History and Physical, not otherwise documented in primary service progress note: no. Potential Anesthesia issues that may suggest increased risk of complications or contraindication to planned procedure: none. Vitals Value Taken Time BP 128/67 07/23/23 0652 Pulse Resp 18 07/23/23 0652 Temp 36.5 ?C (97.7 ?F) 07/23/23 06 SpO2 99 % 07/23/23 0652 Outpatient Medications as of 07/23/2023 Medication Sig - cetirizine HCl (CETIRIZINE ORAL) Take 10 mg by mouth once daily. - MULTI-VITAMIN ORAL Take by mouth. - aspirin, enteric coated (ASPIRIN LOW DOSE) 81 mg EC tablet Take 81 mg by mouth once daily. - lisinopril-hydrochlor othiazide (PRINZIDE, ZESTORETIC) 20-25 mg per tablet Take 0.5 tablets by mouth once daily. (Patient taking differently: Take 1 tablet by mouth once daily.) - levothyroxine (SYNTHROID) 137 mcg tablet Take 137 mcg by mouth once daily. - ethinyl estradiol, testosterone (CPD) Comments for compounding pharmacy: TRIESTROGEN 5 MG/TESTOSTERONE 1.5 MG CAPSULES Facility-Administered Medications as of 07/23/2023 Medication Dose Route Frequency - lidocaine (PF) 10 mg/mL (1 %) 1-2 mg injection (XYLOCAINE) 0.1-0.2 mL INTRADERMAL PRN - lactated ringers iv infusion 30 mL/hr INTRAVENOUS CONTINUOUS I have interviewed and examined the patient. I have reviewed the medical record and/or the pre-anesthesia evaluation, pertinent labs, and test results. This contains updated information obtained within 48 hours of Surgery/Procedure. SIGNATURE: Diane Lu MD PATIENT NAME: Juan Olsen DATE: July 23, 2023 TIME: 6:54 AM CSN: [id number] Normal [facility] Colonoscopyon 07-23-2023 Colonoscopy [facility] Gastrointestinal Endoscopy Patient Name: Juan Olsen Procedure Date: 07/23/2023 7:26 AM Date of : 1960 Admit Type: Outpatient Age: 63 Room: [facility] Gender: Female Note Status: Finalized Attending MD: Gena Menendez MD, [id number] Procedure: Colonoscopy Indications: Screening for colorectal malignant neoplasm Providers: Gena Menendez MD Patient Profile: Refer to note in patient chart for documentation of history and physical. Last Colonoscopy: 5 years ago. Referring Physician: Gena Menendez MD (Referring MD) Medicines: Propofol per Anesthesia Complications: No immediate complications. Estimated blood loss: None. Requesting Provider: Procedure: Pre-Anesthesia Assessment: - Prior to the procedure, a History and Physical was performed, and patient medications and allergies were reviewed. The patient's tolerance of previous anesthesia was also reviewed. The risks and benefits of the procedure and the sedation options and risks were discussed with the patient. All questions were answered, and informed consent was obtained. Prior Anticoagulants: The patient has taken no anticoagulant or antiplatelet agents except for aspirin. ASA Grade Assessment: II - A patient with mild systemic disease. After reviewing the risks and benefits, the patient was deemed in satisfactory condition to undergo the procedure. After I obtained informed consent, the scope was passed under direct vision. Throughout the procedure, the patient's blood pressure, pulse, and oxygen saturations were monitored continuously. The Colonoscope was introduced through the anus and advanced to the cecum, identified by appendiceal orifice and ileocecal valve. The ileocecal valve, appendiceal orifice, and rectum were photographed. The entire colon was well visualized. The colonoscopy was performed without difficulty. The patient tolerated the procedure well. The quality of the bowel preparation was adequate. Scope Withdrawal Time: 0 hours 7 minutes 21 seconds Moderate Sedation: See the other procedure note for documentation of moderate sedation with intraservice time. MAC anesthesia was administered by the anesthesia team. Total Procedure Duration: 0 hours 11 minutes 32 seconds Findings: The perianal and digital rectal examinations were normal. Multiple small-mouthed diverticula were found in the entire colon. Internal hemorrhoids were found during retroflexion. The hemorrhoids were mild. The exam was otherwise without abnormality on direct and retroflexion views. Impression: - Diverticulosis in the entire examined colon. - Internal hemorrhoids. - The examination was otherwise normal on direct and retroflexion views. - No specimens collected. Recommendation: - Discharge patient to home (ambulatory). - High fiber diet indefinitely. - Repeat colonoscopy in 10 years for screening purposes. - Return to my office PRN. - Patient has a contact number available for emergencies. The signs and symptoms of potential delayed complications were discussed with the patient. Return to normal activities tomorrow. Written discharge instructions were provided to the patient. - Continue present medications. Procedure Code(s): --- Professional --- 54865, Colonoscopy, flexible; diagnostic, including collection of specimen(s) by brushing or washing, when performed (separate procedure) Diagnosis Code(s): --- Professional --- Z12.11, Encounter for screening for malignant neoplasm of colon K57.30, Diverticulosis of large intestine without perforation or abscess without bleeding K64.8, Other hemorrhoids CPT copyright 2020 [employer]. All rights reserved. The codes documented in this report are preliminary and upon furnace roaster review may be revised to meet current compliance requirements. Attending Participation: I personally performed the entire procedure. Scope In: 7:45:07 AM Scope Out: 7:56:39 AM MD Gena Trevino MD 07/23/2023 8:03:31 AM This report has been signed electronically by Gena Menendez MD Number of Addenda: 0 Note Initiated On: 07/23/2023 7:26 AM Estimated Blood Loss: Estimated blood loss: none. Normal [facility] HISTORY PHYSICALon 3 HISTORY PHYSICAL HNO ID: [id number] Author: Gena Menendez MD Service: General Surgery Author Type: Physician Type: HANDP Filed: 07/23/2023 7:31 AM Note Text: SURGICAL SERVICES HANDP SERVICE DATE: 07/23/2023 SERVICE TIME: 7:30 AM PRIMARY CARE PHYSICIAN: Glendy Anderson APRN.MANAGER SKILLED Subjective HISTORY OF PRESENT ILLNESS: Ms. Olsen is a 63 year old female who presents for screening colonoscopy.. last scope was 5-6 years . PAST MEDICAL HISTORY Diagnosis Date Blood transfusion abn reaction or complication, no procedure mishap from diverticulitis Diverticulitis of both large and small intestine Diverticulitis of small intestine without perforation or abscess without bleeding 01/17/2022 Endometriosis Hemorrhoids Hypertension Hypothyroid Menopause Thyroid disorder PAST SURGICAL HISTORY Procedure Laterality Date SECTION HX x3 CHOLECYSTECTOMY HX 2008 ELBOW SURGERY HX 12/08/2017 INGUINAL HERNIA REPAIR HX Left 06/24/2020 PAST SURGICAL HISTORY OF 2012 Bowel removal- colon resection for diverticulitis REPAIR INCISIONAL HERNIA,REDUCIBLE N/A 06/24/2020 STRESS ECHO EXERCISE 02/12/2016 TOTAL ABDOMINAL HYSTERECT W/WO RMVL TUBE OVARY 2005 FAMILY HISTORY Problem Relation Age of Onset Diabetes Mother Breast Cancer Mother Ovarian cancer Mother Heart Mother Thyroid Mother Diabetes Father Colon Cancer Father Heart Father Thyroid Father Stroke Sister No Known Problems Sister No Known Problems Sister No Known Problems Sister No Known Problems Sister Heart disease Brother Heart disease Brother No Known Problems Brother No Known Problems Brother No Known Problems Brother No Known Problems Brother No Known Problems Brother No Known Problems Brother No Known Problems Brother Social History Tobacco Use Smoking status: Every Day Packs/day: 1.00 Years: 40.00 Additional pack years: 0.00 Total pack years: 40.00 Types: Cigarettes Smokeless tobacco: Never Vaping Use Vaping Use: Never used Substance Use Topics Alcohol use: Yes Alcohol/week: 1.0 - 2.0 standard drink of alcohol Types: 1 - 2 Glasses of Wine (5oz) per week Drug use: No (Not in a hospital admission) Current Facility-Administered Medications Medication Dose Route Frequency lidocaine (PF) 10 mg/mL (1 %) 1-2 mg injection (XYLOCAINE) 0.1-0.2 mL INTRADERMAL PRN lactated ringers iv infusion 30 mL/hr INTRAVENOUS CONTINUOUS ALLERGIES Allergen Reactions Hydrocodone-Acetami* Rash Penicillins Rash Tomatoes GI Upset COMPLETE REVIEW OF SYSTEMS: PAIN ASSESSMENT: Negative for pain, history of chronic pain, or current treatment for a chronic pain condition. GENERAL: No weight loss, malaise or fevers RESPIRATORY: Negative for cough, hemoptysis, wheezing, COPD, dyspnea or shortness of breath CARDIOVASCULAR: Negative for chest pain, leg swelling, hypertension, CHF or palpitations GI: No nausea, vomiting, or diarrhea Objective PHYSICAL EXAM: BP 128/67 Temp (Src) 97.7 (Temporal Artery) Resp 18 Ht 5' 1 (1.55m) Wt 170 lb (77.1kg) SpO2 99% BMI 32.14 kg/(m2). O2 Therapy: Room Air Physical Exam Performed GENERAL: Alert, no distress, cooperative EYES: PERRLA, EOMI LUNGS: Lungs clear to auscultation, Good diaphragmatic excursion CARDIAC: Normal S1 and S2; no rubs, murmurs, or gallops ABDOMEN: Abdomen soft, non-tender, BS normal, No masses or organomegaly DATA: Diagnostic tests reviewed for today's visit: Most recent labs and imaging results. Assessment/Plan Colonoscopy today SIGNATURE: Gena Menendez MD PATIENT NAME: Juan Olsen DATE: July 23, 2023 TIME: 7:30 AM [facility] [place] 06-10-2023 [facility] Telephone ([employer]) JUAN OLSEN ([id number]) 1960 F Date Time Provider Department 06/10/23 GENA MENENDEZ During your visit today, we recorded the following information about you: French, Ayaz 06/10/2023 11:09 AM Signed Patient called and was inquiring about if he needs PAT testing ? His colonoscopy is tomorrow. Britt Church PA-C 06/10/2023 12:22 PM Signed Not that I am aware. Was this open access? Ayaz French 06/10/2023 2:13 PM Signed Yes I do think it was open access. Emma Mc RN 06/10/2023 4:54 PM Signed Patient's Mikhail Olsen is having colonoscopy tomorrow. Allergies As of Date: 06/10/2023 Noted Allergy Reaction HYDROCODONE-ACETAMINO PHEN 03/02/2016 2 - Rash PENICILLINS 03/02/2016 2 - Rash TOMATOES 06/11/2020 8 - GI Upset Date Reviewed: 02/11/2022 Reviewed by: Diane John Ma - Fully Assessed Prescriptions as of 06/17/2023 - ethinyl estradiol, testosterone (CPD) Comments for compounding pharmacy: TRIESTROGEN 5 MG/TESTOSTERONE 1.5 MG CAPSULES - cetirizine HCl (CETIRIZINE ORAL) Take 10 mg by mouth once daily. - MULTI-VITAMIN ORAL Take by mouth. - aspirin, enteric coated (ASPIRIN LOW DOSE) 81 mg EC tablet Take 81 mg by mouth once daily. - lisinopril-hydrochlor othiazide (PRINZIDE, ZESTORETIC) 20-25 mg per tablet Take 0.5 tablets by mouth once daily. - levothyroxine (SYNTHROID) 137 mcg tablet Take 137 mcg by mouth once daily. Problem List As Of Date 06/10/2023 Noted Resolved Hypotension [I95.9] 12/17/2018 12/18/2018 Precordial chest pain [R07.2] 12/17/2018 12/18/2018 Elevated lactic acid level [R79.89] 12/17/2018 12/18/2018 Hypokalemia [E87.6] 12/17/2018 12/18/2018 Essential hypertension [I10] 12/17/2018 Acquired hypothyroidism [E03.9] 12/17/2018 Nicotine use disorder, F17.2 [F17.200] 12/18/2018 Obesity, Class I, BMI 30-34.9 [E66.9] 12/18/2018 Hyperlipidemia, unspecified [E78.5] 02/12/2016 Sleep apnea, unspecified [G47.30] 02/12/2016 Incisional hernia, without obstruction or gangr*06/24/2020 Left groin pain [R10.32] 06/24/2020 Abdominal pain [R10.9] 01/16/2022 Diverticulitis of small intestine without perfo*01/17/2022 Encounter Status:Closed by AYAZ FRENCH on 06/17/23 Normal [facility] Absolute lymphocyte countOrd ered By: Glendy Anderson on 03-30-2023 Lymphocytes Auto (Unsp spec) [#/Vol] 1.71 10*3/uL 0.83-4.51 [facility] Basophil percentageOrdered B y: Glendy Anderson on 03-30-2023 Basophils/100 WBC (Bld) 1.2 % 0-1 [facility] Bilirubin [Mass/Vol] 0.40 mg/dL 0.20-1.00 [facility] Comment on above: For patients on eltr ombopag therapy, use of Dimension [place] TBIL is not recommended. Chloride [Moles/Vol] 108 mmol/L 98-107 [facility] Cholesterol [Mass/Vol] 158 mg/dL <200 [facility] Comment on above: <200 mg/dL Desirable 200-240 mg/dL Borderline >240 mg/dL High Risk Eosinophils/100 WBC (Bld) 3.0 % 0-5 [facility] Glucose [Mass/Vol] 157 mg/dL 74-106 [facility] Comment on above: Fasting Glucose resu lt greater than or equal to 126 mg/dL suggests DIABETES MELLITUS per A.D.A. criteria. Neutrophils (Bld) [#/Vol] 3.5 10*3/uL 2.0-7.7 [facility] Neutrophils/100 WBC (Bld) 59.7 % 47-70 [facility] Potassium [Moles/Vol] 3.7 mmol/L 3.5-5.1 [facility] Protein [Mass/Vol] 7.3 g/dL 6.4-8.2 [facility] Sodium [Moles/Vol] 140 mmol/L 136-145 [facility] Triglyceride [Mass/Vol] 115 mg/dL <199 [facility] Comment on above: The drugs N-Acetylcy steine and Metamizole may falsely depress this assay.Serum Triglycerides Reference Interval Normal <150 mg/dL Borderline high 150 - 199 mg/dL High 200 - 499 mg/dL Very High > or = 500 mg/dL WBC (Bld) [#/Vol] 5.9 10*3/uL 4.4-11.0 [facility] Blood erythrocytes count (nu mber/volume)Ordered By: Glendy Anderson on 03-30-2023 RBC (Bld) [#/Vol] 4.65 10*6/uL 4.2-5.[address] [facility] Blood hemoglobin measurement (mass/volume)Ordered By: Glendy Anderson on 03-30-2023 Hemoglobin (Bld) [Mass/Vol] 14.7 g/dL 12.0-15.0 [facility] Blood lymphocytes/100 leukoc ytesOrdered By: Glendy Anderson on 03-30-2023 Lymphocytes/100 WBC (Bld) 28.8 % 19-41 [facility] Blood monocytes/100 leukocyt esOrdered By: Glendy Anderson on 03-30-2023 Monocytes/100 WBC (Bld) 7.1 % 0-10 [facility] Blood platelet mean volumeOr dered By: Glendy Anderson on 03-30-2023 Platelet mean volume (Bld) [Entitic vol] 10.1 fL 6.2-12.0 [facility] Determination of erythrocyte mean corpuscular volume (MCV)Ordered By: Glendy Anderson on 03-30-2023 MCV (RBC) [Entitic vol] 88.4 fL 81-99 [facility] Hematocrit Auto (Bld) [Volum e fraction]Ordered By: Glendy Anderson on 03-30-2023 Hematocrit (Bld) [Volume fraction] 41.1 % 37-47 [facility] Laboratory - Chemistry and C hemistry - challengeOrdered By: Glendy Anderson on 03-30-2023 ALP [Catalytic activity/Vol] 84 U/L 45-117 [facility] ALT [Catalytic activity/Vol] 36 U/L 13-56 [facility] CO2 [Moles/Vol] 26.0 mmol/L 21.0-32.0 [facility] Globulin (S) [Mass/Vol] 3.4 g/dL 2.2-4.2 [facility] Urea nitrogen/Creatinine [Mass ratio] 19.8 mg/mg 10-20 [facility] Laboratory - Hematology and Cell countsOrdered By: Glendy Anderson on 03-30-2023 Erythrocyte distribution width (RBC) [Entitic vol] 41.2 fL 35.1-43.9 [facility] Erythrocyte distribution width (RBC) [Ratio] 12.8 % 11.6-14.6 [facility] Immature granulocytes/100 WBC (Bld) 0.200 % 0.0-0.9 [facility] Comment on above: IG% - Immature Granu locytes (promyelocytes, myelocytes and metamyelocytes) > 1% indicates that a LEFT SHIFT is Present. MCH (RBC) [Entitic mass] 31.6 pg 27.0-32.0 [facility] Nucleated RBC/100 WBC (Bld) [Ratio] 0 % 0-5 [facility] MCHC Auto (RBC) [Mass/Vol]Or dered By: Glendy Anderson on 03-30-2023 MCHC (RBC) [Mass/Vol] 35.8 g/dL 32-36 [facility] No Panel InformationOrdered By: Glendy Anderson on 03-30-2023 Estimated GFR (MDRD) Amer 108 mL/min >60 [facility] Comment on above: GFR Calc Estimated GFR (MDRD) Non-Af Amer 89 mL/min >60 [facility] Comment on above: Non- GFR Calc Platelets bldOrdered By: Melvin Anderson on 03-30-2023 Platelets (Bld) [#/Vol] 312 10*3/uL 150-450 [facility] Serum or plasma albumin shawna urement (mass/volume)Ordered By: Glendy Anderson on 03-30-2023 Albumin [Mass/Vol] 3.9 g/dL 3.2-5.0 [facility] Serum or plasma albumin/glob ulin mass ratioOrdered By: Glendy Anderson on 03-30-2023 Albumin/Globulin [Mass ratio] 1.1 {ratio} 0.9-2.4 [facility] Serum or plasma calcium shawna urement (mass/volume)Ordered By: Glendy Anderson on 03-30-2023 Calcium [Mass/Vol] 9.4 mg/dL 8.5-10.1 [facility] Serum or plasma cholesterol in HDL measurement (mass/volume)Ordered By: Glendy Anderson on 03-30-2023 Cholesterol in HDL [Mass/Vol] 47 mg/dL >40 [facility] Comment on above: The drugs N-Acetylcy steine and Metamizole may falsely depress this assay. Reference Range HDL <40 mg/dL Low HDL Cholesterol HDL >or= 60 mg/dL High HDL Cholesterol Serum or plasma cholesterol in VLDL measurement (mass/volume)Ordered By: Glendy Anderson on 03-30-2023 Cholesterol in VLDL [Mass/Vol] 23 mg/dL 5-40 [facility] Serum or plasma creatinine m easurement (mass/volume)Ordered By: Glendy Anderson on 03-30-2023 Creatinine [Mass/Vol] 0.71 mg/dL 0.55-1.02 [facility] Comment on above: The validity of the calculated GFR & GFRAA in patients over 70 years has not been determined. Clinical correlation is essential. Serum or plasma low density lipoprotein (LDL) cholesterol measurement (mass/volume)Ordered By: Glendy Anderson on 03-30-2023 Cholesterol in LDL [Mass/Vol] 88 mg/dL 0-130 [facility] Serum or plasma urea nitroge n measurement (mass/volume)Ordered By: Glendy Anderson on 03-30-2023 Urea nitrogen [Mass/Vol] 14 mg/dL 7-18 [facility] Thin prep Papanicolaou smear with manual screeningOrdered By: Glendy Anderson on 03-30-2023 Thin prep Papanicolaou smear with manual screening 16 U/L 15-37 [facility] Thin prep Papanicolaou smear with manual screening 6 5-15 [facility] GLUCOSEon 03-24-2023 Glucose [Mass/Vol] 154 mg/dL High 74 - 99 [facility] Comment on above: Performed By: #### G FREDI #### [address] [address] LIPID PANEL (CORONARY RISK 2 )on 03-24-2023 Cholesterol [Mass/Vol] 159 mg/dL Normal 0 - 199 [facility] Comment on above: Result Comment: . AGE DESIRABLE BORDERLINE HIGH HIGH 0-19 Y 0 - 169 170 - 199 >/= 200 20-24 Y 0 - 189 190 - 224 >/= 225 >24 Y 0 - 199 200 - 239 >/= 240 All ranges are based on fasting samples. Specific therapeutic targets will vary based on patient-specific cardiac risk. . Pediatric guidelines reference:Pediatrics 2011, 128(S5). Adult guidelines reference: NCEP ATPIII Guidelines, GABRIELA 2001, 258:2486-97 . Venipuncture immediately after or during the administration of Metamizole may lead to falsely low results. Testing should be performed immediately prior to Metamizole dosing. Performed By: #### L IPID #### [address] [address] Cholesterol in HDL [Mass/Vol] 48.0 mg/dL Normal [facility] Comment on above: Result Comment: . AGE VERY LOW LOW NORMAL HIGH 0-19 Y < 35 < 40 40-45 ---- 20-24 Y ---- < 40 >45 ---- >24 Y ---- < 40 40-60 >60 . Performed By: #### L IPID #### [address] [address] Cholesterol in LDL [Mass/Vol] 93 mg/dL Normal 0 - 99 [facility] Comment on above: Result Comment: . NEAR BORD AGE DESIRABLE OPTIMAL HIGH HIGH VERY HIGH 0-19 Y 0 - 109 --- 110-129 >/= 130 ---- 20-24 Y 0 - 119 --- 120-159 >/= 160 ---- >24 Y 0 - 99 100-129 130-159 160-189 >/=190 . Performed By: #### L IPID #### [address] [address] Cholesterol in VLDL [Mass/Vol] 18 mg/dL Normal 0 - 40 [facility] Comment on above: Performed By: #### L IPID #### [address] [address] Cholesterol.total/Hannah sterol in HDL [Mass ratio] 3.3 {ratio} Normal [facility] Comment on above: Result Comment: REF VALUES DESIRABLE < 3.4 HIGH RISK > 5.0 Performed By: #### L IPID #### [address] [address] Triglyceride [Mass/Vol] 90 mg/dL Normal 0 - 149 [facility] Comment on above: Result Comment: . AGE DESIRABLE BORDERLINE HIGH HIGH VERY HIGH 0 D-90 D 19 - 174 ---- ---- ---- 91 D- 9 Y 0 - 74 75 - 99 >/= 100 ---- 10-19 Y 0 - 89 90 - 129 >/= 130 ---- 20-24 Y 0 - 114 115 - 149 >/= 150 ---- >24 Y 0 - 149 150 - 199 200- 499 >/= 500 . Venipuncture immediately after or during the administration of Metamizole may lead to falsely low results. Testing should be performed immediately prior to Metamizole dosing. Performed By: #### L IPID #### [address] [address] Basophil percentageOrdered B y: Glendy Anderson on 01-27-2023 Bilirubin [Mass/Vol] 0.40 mg/dL 0.20-1.00 [facility] Comment on above: For patients on eltr ombopag therapy, use of Dimension [place] TBIL is not recommended. Chloride [Moles/Vol] 111 mmol/L 98-107 [facility] Glucose [Mass/Vol] 165 mg/dL 74-106 [facility] Comment on above: Fasting Glucose resu lt greater than or equal to 126 mg/dL suggests DIABETES MELLITUS per A.D.A. criteria. Potassium [Moles/Vol] 4.3 mmol/L 3.5-5.1 [facility] Protein [Mass/Vol] 6.9 g/dL 6.4-8.2 [facility] Sodium [Moles/Vol] 143 mmol/L 136-145 [facility] Laboratory - Chemistry and C hemistry - challengeOrdered By: Glendy Anderson on 01-27-2023 ALP [Catalytic activity/Vol] 72 U/L 45-117 [facility] ALT [Catalytic activity/Vol] 35 U/L 13-56 [facility] CO2 [Moles/Vol] 29.0 mmol/L 21.0-32.0 [facility] Globulin (S) [Mass/Vol] 3.4 g/dL 2.2-4.2 [facility] Urea nitrogen/Creatinine [Mass ratio] 19.2 mg/mg 10-20 [facility] No Panel InformationOrdered By: Glendy Anderson on 01-27-2023 C-Reactive Protein High Sensitivity 3.79 mg/L <3.00 [facility] Comment on above: Low Relative Risk of CVD <1.0 mg/L Average Relative Risk of CVD 1.0 - 3.0 mg/L High Relative Risk of CVD >3.0 mg/L Estimated GFR (MDRD) Amer 104 mL/min >60 [facility] Comment on above: GFR Calc Estimated GFR (MDRD) Non-Af Amer 86 mL/min >60 [facility] Comment on above: Non- GFR Calc Thyroid Stimulating Hormone (TSH) 1.45 uIU/mL 0.358-3.74 [facility] Serum or plasma albumin shawna urement (mass/volume)Ordered By: Glendy Anderson on 01-27-2023 Albumin [Mass/Vol] 3.5 g/dL 3.2-5.0 [facility] Serum or plasma albumin/glob ulin mass ratioOrdered By: Glendy Anderson on 01-27-2023 Albumin/Globulin [Mass ratio] 1.0 {ratio} 0.9-2.4 [facility] Serum or plasma calcium shawna urement (mass/volume)Ordered By: Glendy Anderson on 01-27-2023 Calcium [Mass/Vol] 9.4 mg/dL 8.5-10.1 [facility] Serum or plasma creatinine m easurement (mass/volume)Ordered By: Glendy Anderson on 01-27-2023 Creatinine [Mass/Vol] 0.73 mg/dL 0.55-1.02 [facility] Comment on above: The validity of the calculated GFR & GFRAA in patients over 70 years has not been determined. Clinical correlation is essential. Serum or plasma urea nitroge n measurement (mass/volume)Ordered By: Glendy Anderson on 01-27-2023 Urea nitrogen [Mass/Vol] 14 mg/dL 7-18 [facility] Thin prep Papanicolaou smear with manual screeningOrdered By: Glendy Anderson on 01-27-2023 Thin prep Papanicolaou smear with manual screening 16 U/L 15-37 [facility] Thin prep Papanicolaou smear with manual screening 3 5-15 [facility] CNPNon 11-04-2022 CNPN Telephone ([facility]) JUAN OLSEN ([id number]) 1960 F Date Time Provider Department 11/04/22 DARLINE BARNHART During your visit today, we recorded the following information about you: Kee Abbott RN 11/04/2022 1:16 PM Signed Aware of results and recommendations and enc to call in January to get sched for f/u mirza in Apr. Kee Abbott RN Follow up mammo in 6 months IMPRESSION: PROBABLY BENIGN - SHORT TERM INTERVAL FOLLOW-UP RECOMMENDED The focal asymmetry in the right breast most likely is fibrocystic change and is probably benign. A follow-up in 6 months is recommended. This is not seen on 2013 - 2017 mammograms, however is likely present on more distant scanned screen film mammograms from 2002, 2003, and 2009. It was likely not present on more recent interval exams due to the far posterior / medial location and was not included. A follow-up mammogram in 6 months is recommended to demonstrate stability Allergies As of Date: 11/04/2022 Noted Allergy Reaction HYDROCODONE-ACETAMINO PHEN 03/02/2016 2 - Rash PENICILLINS 03/02/2016 2 - Rash TOMATOES 06/11/2020 8 - GI Upset Date Reviewed: 02/11/2022 Reviewed by: Diane John Ma - Fully Assessed Reason for Visit: Results [95] Prescriptions as of 11/04/2022 - ethinyl estradiol, testosterone (CPD) Comments for compounding pharmacy: TRIESTROGEN 5 MG/TESTOSTERONE 1.5 MG CAPSULES - cetirizine HCl (CETIRIZINE ORAL) Take 10 mg by mouth once daily. - MULTI-VITAMIN ORAL Take by mouth. - aspirin, enteric coated (ASPIRIN LOW DOSE) 81 mg EC tablet Take 81 mg by mouth once daily. - lisinopril-hydrochlor othiazide (PRINZIDE, ZESTORETIC) 20-25 mg per tablet Take 0.5 tablets by mouth once daily. - levothyroxine (SYNTHROID) 137 mcg tablet Take 137 mcg by mouth once daily. Problem List As Of Date 11/04/2022 Noted Resolved Hypotension [I95.9] 12/17/2018 12/18/2018 Precordial chest pain [R07.2] 12/17/2018 12/18/2018 Elevated lactic acid level [R79.89] 12/17/2018 12/18/2018 Hypokalemia [E87.6] 12/17/2018 12/18/2018 Essential hypertension [I10] 12/17/2018 Acquired hypothyroidism [E03.9] 12/17/2018 Nicotine use disorder, F17.2 [F17.200] 12/18/2018 Obesity, Class I, BMI 30-34.9 [E66.9] 12/18/2018 Hyperlipidemia, unspecified [E78.5] 02/12/2016 Sleep apnea, unspecified [G47.30] 02/12/2016 Incisional hernia, without obstruction or gangr*06/24/2020 Left groin pain [R10.32] 06/24/2020 Abdominal pain [R10.9] 01/16/2022 Diverticulitis of small intestine without perfo*01/17/2022 Encounter Status:Closed by KEE ABBOTT on 11/04/22 [facility] Absolute lymphocyte countOrd ered By: Dr. Tapia on 11-03-2022 Lymphocytes Auto (Unsp spec) [#/Vol] 1.91 10*3/uL 0.83-4.51 [facility] Basophil percentageOrdered B y: Dr. Tapia on 11-03-2022 Basophils/100 WBC (Bld) 1.0 % 0-1 [facility] Eosinophils/100 WBC (Bld) 3.6 % 0-5 [facility] Neutrophils (Bld) [#/Vol] 4.5 10*3/uL 2.0-7.7 [facility] Neutrophils/100 WBC (Bld) 63.0 % 47-70 [facility] WBC (Bld) [#/Vol] 7.1 10*3/uL 4.4-11.0 [facility] Blood erythrocytes count (nu mber/volume)Ordered By: Dr. Tapia on 11-03-2022 RBC (Bld) [#/Vol] 4.87 10*6/uL 4.6-6.[address] [facility] Blood hemoglobin measurement (mass/volume)Ordered By: Dr. Tapia on 11-03-2022 Hemoglobin (Bld) [Mass/Vol] 15.6 g/dL 13.0-16.5 [facility] Blood lymphocytes/100 leukoc ytesOrdered By: Dr. Tapia on 11-03-2022 Lymphocytes/100 WBC (Bld) 26.8 % 19-41 [facility] Blood monocytes/100 leukocyt esOrdered By: Dr. Tapia on 11-03-2022 Monocytes/100 WBC (Bld) 5.3 % 0-10 [facility] Blood platelet mean volumeOr dered By: Dr. Tapia on 11-03-2022 Platelet mean volume (Bld) [Entitic vol] 9.8 fL 6.2-12.0 [facility] Determination of erythrocyte mean corpuscular volume (MCV)Ordered By: Dr. Tapia on 11-03-2022 MCV (RBC) [Entitic vol] 90.1 fL 80-94 [facility] Hematocrit Auto (Bld) [Volum e fraction]Ordered By: Dr. Tapia on 11-03-2022 Hematocrit (Bld) [Volume fraction] 43.9 % 40-54 [facility] Laboratory - Chemistry and C hemistry - challengeOrdered By: Dr. Tapia on 11-03-2022 Natriuretic peptide B (Bld) [Mass/Vol] 110.2 pg/mL 0-100 [facility] Laboratory - Hematology and Cell countsOrdered By: Dr. Tapia on 11-03-2022 Erythrocyte distribution width (RBC) [Entitic vol] 41.2 fL 35.1-43.9 [facility] Erythrocyte distribution width (RBC) [Ratio] 12.6 % 11.6-14.6 [facility] Immature granulocytes/100 WBC (Bld) 0.300 % 0.0-0.9 [facility] Comment on above: IG% - Immature Granu locytes (promyelocytes, myelocytes and metamyelocytes) > 1% indicates that a LEFT SHIFT is Present. MCH (RBC) [Entitic mass] 32.0 pg 27.0-32.0 [facility] Nucleated RBC/100 WBC (Bld) [Ratio] 0 % 0-5 [facility] MCHC Auto (RBC) [Mass/Vol]Or dered By: Dr. Tapia on 11-03-2022 MCHC (RBC) [Mass/Vol] 35.5 g/dL 32-36 [facility] Platelets bldOrdered By: Dr. Tapia on 11-03-2022 Platelets (Bld) [#/Vol] 273 10*3/uL 150-450 [facility] MIRZA DIAG W ARMEN RIGHTon 04-0 [facility] MIRZA DIAG W ARMEN RTon 11-02-2 023 [facility] DIAG W ARMEN RT * * *Final Report* * * DATE OF EXAM: Nov 02 2022 8:17AM PRASHANTH [id number] - [facility] DIAG W ARMEN RT / PROCEDURE REASON: R92.8-Follow-up examination of abnormal mammogram * * * * Physician Interpretation * * * * #[id number] - [facility] DIAG W ARMEN RT UNILATERAL RIGHT DIGITAL DIAGNOSTIC MAMMOGRAM TOMOSYNTHESIS WITH CAD: 11/02/2022 HISTORY: R92.8-Follow-Up Examination Of Abnormal Mammogram / Screening Mammogram-Patient reports NO symptoms. RESULT: TECHNIQUE: The study was acquired using full field digital technology and interpreted from soft copy. Digital Breast Tomosynthesis (DBT) images were obtained and used to assist in the interpretation of this examination. Current study was also evaluated with a Computer Aided Detection (CAD). Comparison is made to exams dated: 03/02/2022 mammogram, 01/13/2022 mammogram - [facility], 03/10/2018 mammogram - [facility], 04/25/2010 mammogram, 04/24/2014 mammogram, and 10/03/2003 mammogram. There are scattered fibroglandular elements in right breast. Additional CC and MLO views imaging reveal prior mammographic finding is no longer seen in the right breast in the middle depth in the inner aspect. This is consistent with a cyst. There is a focal asymmetry in the right breast upper inner aspect. This is seen in additional views. This is not significantly changed. No other significant masses or calcifications are seen in the breast. There has been no significant interval change. IMPRESSION: PROBABLY BENIGN - SHORT TERM INTERVAL FOLLOW-UP RECOMMENDED The focal asymmetry in the right breast most likely is fibrocystic change and is probably benign. A follow-up in 6 months is recommended. This is not seen on 2013 - 2017 mammograms, however is likely present on more distant scanned screen film mammograms from 2002, 2003, and 2009. It was likely not present on more recent interval exams due to the far posterior / medial location and was not included. A follow-up mammogram in 6 months is recommended to demonstrate stability. Opal Prince M.D., jr/eve:11/02/2022 08:31:12 [employer] Designer(s): RT Meli(R)(M), [facility] Mammogram BI-RADS: 3 Probably benign finding - short term interval follow-up recommended Multiple national specialty organizations have released breast cancer screening guidelines for women at average risk for developing breast cancer - guidelines that are based on both evidence and opinion, yet differ on when to start and how often to screen for breast cancer. With representation from Breast Imaging, Internal Medicine, Women's Health, Family Medicine, and Medical/Surgical Oncology, the [facility] has carefully reviewed the data and reached the following consensus: 1) All women should engage in shared decision-making with their providers to decide when to start and how often to screen; 2) All women should have the opportunity to start screening mammography at age 40; 3) For women ages 45-55, we recommend annual screening mammograms; 4) For women ages 55 and over, we support both the transition from an annual to a biennial interval if this aligns more with patient's values and preferences, or continuation with annual screening; 5) All women should discuss with their providers when to stop screening mammograms. Hyster Machine Operator: Eve Transcribe Date/Time: Nov 02 2022 8:09A Dictated by : OPAL PRINCE MD This examination was interpreted and the report reviewed and electronically signed by: OPAL PRINCE MD on Nov 02 2022 8:31AM EST [id number] N [facility] CNCOon 08-11-2022 CNCO Letter Text [facility] No Panel InformationOrdered By: Glendy Anderson on 07-28-2022 Thyroid Stimulating Hormone (TSH) 1.97 uIU/mL 0.358-3.74 [facility] 03-10-2022 CNPN Telephone (OBGWMA) JUAN OLSEN ([id number]) 1960 F Date Time Provider Department 03/10/22 DARLINE BARNHART OBGWMO During your visit today, we recorded the following information about you: Aissatou Turner LPN 03/10/2022 9:21 AM Signed [facility]. IMPRESSION: PROBABLY BENIGN - SHORT TERM INTERVAL FOLLOW-UP RECOMMENDED The 2.2 cm x 1.8 cm x 0.6 cm area in the right breast at 1 o'clock posterior depth resembles fibroglandular tissue and is probably benign. This is likely present on the more distant mammograms (2009, 2003, and 2002) and is not significantly changed, allowing for differences in technique (prior films are scanned film screen images). The 0.5 cm x 0.4 cm x 0.3 cm lobulated mass in the right breast at 3 o'clock is consistent with clustered cysts and is benign. This is stable mammographically since at least 2017 and likely 2016 and therefore may be considered benign. A follow-up mammogram in 6 months is recommended to demonstrate stability. Darline Barnhart MD 03/03/2022 8:07 AM EDT Diagnostic mammogram in 6 months LEXI Christian LPN 03/10/2022 9:33 AM Signed Patient returning missed call. Reviewed results and recommendations. LEXI Christian LPN 03/10/2022 9:49 AM Signed Addended by: AISSATOU TURNER on: 03/10/2022 09:49 AM Modules accepted: Orders Darline Barnhart MD 03/10/2022 10:02 AM Signed Addended by: DARLINE BARNHART on: 03/10/2022 10:02 AM Modules accepted: Orders Aissatou Turner LPN 08/11/2022 10:30 AM Signed My Chart message read. Certified letter sent Tracking [id number] LEXI Christian LPN 09/18/2022 2:38 PM Signed Certified letter unable to track through [facility]. New Cert letter sent with trackin [id number] Aissatou Turner LPN Allergies As of Date: 03/10/2022 Noted Allergy Reaction HYDROCODONE-ACETAMINO PHEN 03/02/2016 2 - Rash PENICILLINS 03/02/2016 2 - Rash TOMATOES 06/11/2020 8 - GI Upset Date Reviewed: 02/11/2022 Reviewed by: Diane John Ma - Fully Assessed Reason for Visit: Results [95] Primary Visit Diagnosis:Abnormal mammogram [R92.8] Other Visit Diagnosis:Follow-up examination of abnormal mammogram [R92.8] Order(s):[facility] DIAGNOSTIC RT [[id number]] Order #: [id number] FUTURE BREAST LTD RT [[id number]] Order #: [id number] FUTURE Prescriptions as of 09/18/2022 - ethinyl estradiol, testosterone (CPD) Comments for compounding pharmacy: TRIESTROGEN 5 MG/TESTOSTERONE 1.5 MG CAPSULES - cetirizine HCl (CETIRIZINE ORAL) Take 10 mg by mouth once daily. - MULTI-VITAMIN ORAL Take by mouth. - aspirin, enteric coated (ASPIRIN LOW DOSE) 81 mg EC tablet Take 81 mg by mouth once daily. - lisinopril-hydrochlor othiazide (PRINZIDE, ZESTORETIC) 20-25 mg per tablet Take 0.5 tablets by mouth once daily. - levothyroxine (SYNTHROID) 137 mcg tablet Take 137 mcg by mouth once daily. Problem List As Of Date 03/10/2022 Noted Resolved Hypotension [I95.9] 12/17/2018 12/18/2018 Precordial chest pain [R07.2] 12/17/2018 12/18/2018 Elevated lactic acid level [R79.89] 12/17/2018 12/18/2018 Hypokalemia [E87.6] 12/17/2018 12/18/2018 Essential hypertension [I10] 12/17/2018 Acquired hypothyroidism [E03.9] 12/17/2018 Nicotine use disorder, F17.2 [F17.200] 12/18/2018 Obesity, Class I, BMI 30-34.9 [E66.9] 12/18/2018 Hyperlipidemia, unspecified [E78.5] 02/12/2016 Sleep apnea, unspecified [G47.30] 02/12/2016 Incisional hernia, without obstruction or gangr*06/24/2020 Left groin pain [R10.32] 06/24/2020 Abdominal pain [R10.9] 01/16/2022 Diverticulitis of small intestine without perfo*01/17/2022 Encounter Status:Closed by AISSATOU TURNER on 03/10/22 [facility] MIRZA DIAG W ARMEN RTon [facility] US BREAST LTD RTon 03-[address] [facility] [address] ABD/PEL W IVCONon Radiology Result ACTIONABLE Abnormal Carlos Enrique peña [facility] CNPSkylar 01-14-2022 CNPN Telephone (OBGWMA) JUAN OLSEN ([id number]) 1960 F Date Time Provider Department 01/14/22 DARLINE BARNHART OBGWMA During your visit today, we recorded the following information about you: Aissatou Turner LPN 01/14/2022 11:59 AM Signed Patient notified of results/ recommendations. Patient transferred to central scheduling. IMPRESSION: INCOMPLETE: NEEDS ADDITIONAL IMAGING EVALUATION The focal asymmetry in the right breast upper inner aspect is indeterminate. ?Additional views are recommended. The asymmetry in the right breast inner region seen on the craniocaudal view only is indeterminate. ?Additional views are recommended. Aissatou Turner LPN Allergies As of Date: 01/14/2022 Noted Allergy Reaction HYDROCODONE-ACETAMINO PHEN 03/02/2016 2 - Rash PENICILLINS 03/02/2016 2 - Rash TOMATOES 06/11/2020 8 - GI Upset Date Reviewed: 01/09/2022 Reviewed by: Ophelia Laurent LPN - Fully Assessed Reason for Visit: Results [95] Cmt: Mammogream results Prescriptions as of 01/14/2022 - ethinyl estradiol, testosterone (CPD) Comments for compounding pharmacy: TRIESTROGEN 5 MG/TESTOSTERONE 1.5 MG CAPSULES - cetirizine HCl (CETIRIZINE ORAL) Take 10 mg by mouth once daily. - MULTI-VITAMIN ORAL Take by mouth. - aspirin, enteric coated (ASPIRIN LOW DOSE) 81 mg EC tablet Take 81 mg by mouth once daily. - lisinopril-hydrochlor othiazide (PRINZIDE, ZESTORETIC) 20-25 mg per tablet Take 0.5 tablets by mouth once daily. - levothyroxine (SYNTHROID) 137 mcg tablet Take 137 mcg by mouth once daily. Problem List As Of Date 01/14/2022 Noted Resolved Hypotension [I95.9] 12/17/2018 12/18/2018 Precordial chest pain [R07.2] 12/17/2018 12/18/2018 Elevated lactic acid level [R79.89] 12/17/2018 12/18/2018 Hypokalemia [E87.6] 12/17/2018 12/18/2018 Essential hypertension [I10] 12/17/2018 Acquired hypothyroidism [E03.9] 12/17/2018 Nicotine use disorder, F17.2 [F17.200] 12/18/2018 Obesity, Class I, BMI 30-34.9 [E66.9] 12/18/2018 Hyperlipidemia, unspecified [E78.5] 02/12/2016 Sleep apnea, unspecified [G47.30] 02/12/2016 Incisional hernia, without obstruction or gangr*06/24/2020 Left groin pain [R10.32] 06/24/2020 Encounter Status:Closed by AISSATOU TURNER on 01/14/22 [facility] Absolute lymphocyte counton 01-13-2022 Lymphocytes Auto (Unsp spec) [#/Vol] 1.68 10*3/uL 0.83-4.51 [facility] Work Phone: Basophil percentageon 2021 Basophils/100 WBC (Bld) 0.7 % 0-1 [facility] Work Phone: Bilirubin [Mass/Vol] 0.50 mg/dL 0.20-1.00 [facility] Work Phone: Comment on above: For patients on eltr ombopag therapy, use of Dimension [place] TBIL is not recommended. Chloride [Moles/Vol] 107 mmol/L 98-107 [facility] Work Phone: Cholesterol [Mass/Vol] 178 mg/dL <200 [facility] Work Phone: Comment on above: <200 mg/dL Desirable 200-240 mg/dL Borderline >240 mg/dL High Risk Eosinophils/100 WBC (Bld) 2.1 % 0-5 [facility] Work Phone: Glucose [Mass/Vol] 101 mg/dL 74-106 [facility] Work Phone: Comment on above: Fasting Glucose resu lt from 100 to 125 mg/dL suggests IMPAIRED HOMEOSTASIS per A.D.A. criteria. Neutrophils (Bld) [#/Vol] 6.2 10*3/uL 2.0-7.7 [facility] Work Phone: Neutrophils/100 WBC (Bld) 72.1 % 47-70 [facility] Work Phone: Potassium [Moles/Vol] 3.9 mmol/L 3.5-5.1 [facility] Work Phone: [phone] Protein [Mass/Vol] 7.1 g/dL 6.4-8.2 [facility] Work Phone: [phone] Sodium [Moles/Vol] 138 mmol/L 136-145 [facility] Work Phone: [phone] Triglyceride [Mass/Vol] 118 mg/dL <199 [facility] Work Phone: [phone] Comment on above: The drugs N-Acetylcy steine and Metamizole may falsely depress this assay.Serum Triglycerides Reference Interval Normal <150 mg/dL Borderline high 150 - 199 mg/dL High 200 - 499 mg/dL Very High > or = 500 mg/dL WBC (Bld) [#/Vol] 8.5 10*3/uL 4.4-11.0 [facility] Work Phone: [phone] Blood erythrocytes count (nu mber/volume)on 01-13-2022 RBC (Bld) [#/Vol] 4.80 10*6/uL 4.6-6.[address] [facility] Work Phone: [phone] Blood hemoglobin measurement (mass/volume)on 01-13-2022 Hemoglobin (Bld) [Mass/Vol] 15.4 g/dL 13.0-16.5 [facility] Work Phone: [phone] Blood lymphocytes/100 leukoc yteson 01-13-2022 Lymphocytes/100 WBC (Bld) 19.7 % 19-41 [facility] Work Phone: [phone] Blood monocytes/100 leukocyt eson 01-13-2022 Monocytes/100 WBC (Bld) 5.0 % 0-10 [facility] Work Phone: [phone] Blood platelet mean volumeon 01-13-2022 Platelet mean volume (Bld) [Entitic vol] 10.1 fL 6.2-12.0 [facility] Work Phone: [phone] Determination of erythrocyte mean corpuscular volume (MCV)on 06-14-2022 MCV (RBC) [Entitic vol] 90.2 fL 80-94 [facility] Work Phone: Hematocrit Auto (Bld) [Volum e fraction]on 01-13-2022 Hematocrit (Bld) [Volume fraction] 43.3 % 40-54 [facility] Work Phone: Laboratory - Chemistry and C hemistry - challengeon 01-13-2022 ALP [Catalytic activity/Vol] 68 U/L 45-117 [facility] Work Phone: ALT [Catalytic activity/Vol] 30 U/L 16-61 [facility] Work Phone: [phone] CO2 [Moles/Vol] 25.0 mmol/L 21.0-32.0 [facility] Work Phone: [phone] Cobalamin (Vitamin B12) [Mass/Vol] 441 pg/mL 211-911 [facility] Work Phone: [phone] Globulin (S) [Mass/Vol] 3.3 g/dL 2.2-4.2 [facility] Work Phone: [phone] Urea nitrogen/Creatinine [Mass ratio] 20.9 mg/mg 10-20 [facility] Work Phone: [phone] Laboratory - Hematology and Cell countson 01-13-2022 Erythrocyte distribution width (RBC) [Entitic vol] 42.4 fL 35.1-43.9 [facility] Work Phone: [phone] Erythrocyte distribution width (RBC) [Ratio] 12.9 % 11.6-14.6 [facility] Work Phone: [phone] Immature granulocytes/100 WBC (Bld) 0.400 % 0.0-0.9 [facility] Work Phone: Comment on above: IG% - Immature Granu locytes (promyelocytes, myelocytes and metamyelocytes) > 1% indicates that a LEFT SHIFT is Present. MCH (RBC) [Entitic mass] 32.1 pg 27.0-32.0 [facility] Work Phone: Nucleated RBC/100 WBC (Bld) [Ratio] 0 % 0-5 [facility] Work Phone: MIRZA SCREENINGon 01-13-2022 [facility] Auto (RBC) [Mass/Vol]on 01-13-2022 MCHC (RBC) [Mass/Vol] 35.6 g/dL 32-36 [facility] Work Phone: No Panel Informationon 01-13 Estimated GFR (MDRD) Amer 143 mL/min >60 [facility] Work Phone: Comment on above: GFR Calc Estimated GFR (MDRD) Non-Af Amer 119 mL/min >60 [facility] Work Phone: Comment on above: Non- GFR Calc Thyroid Stimulating Hormone (TSH) 4.94 uIU/mL 0.358-3.74 [facility] Work Phone: Platelets bldon 01-13-2022 Platelets (Bld) [#/Vol] 331 10*3/uL 150-450 [facility] Work Phone: Serum or plasma albumin shawna urement (mass/volume)on 01-13-2022 Albumin [Mass/Vol] 3.8 g/dL 3.2-5.0 [facility] Work Phone: Serum or plasma albumin/glob ulin mass ratioon 01-13-2022 Albumin/Globulin [Mass ratio] 1.2 {ratio} 0.9-2.4 [facility] Work Phone: [phone] Serum or plasma calcium shawna urement (mass/volume)on 01-13-2022 Calcium [Mass/Vol] 10.0 mg/dL 8.5-10.1 [facility] Work Phone: Serum or plasma cholesterol in HDL measurement (mass/volume)on 01-13-2022 Cholesterol in HDL [Mass/Vol] 60 mg/dL >40 [facility] Work Phone: Comment on above: The drugs N-Acetylcy steine and Metamizole may falsely depress this assay. Reference Range HDL <40 mg/dL Low HDL Cholesterol HDL >or= 60 mg/dL High HDL Cholesterol Serum or plasma cholesterol in VLDL measurement (mass/volume)on 01-13-2022 Cholesterol in VLDL [Mass/Vol] 24 mg/dL 5-40 [facility] Work Phone: Serum or plasma creatinine m easurement (mass/volume)on 01-13-2022 Creatinine [Mass/Vol] 0.72 mg/dL 0.70-1.30 [facility] Work Phone: Comment on above: The validity of the calculated GFR & GFRAA in patients over 70 years has not been determined. Clinical correlation is essential. Serum or plasma low density lipoprotein (LDL) cholesterol measurement (mass/volume)on 01-13-2022 Cholesterol in LDL [Mass/Vol] 94 mg/dL 0-130 [facility] Work Phone: Serum or plasma urea nitroge n measurement (mass/volume)on 01-13-2022 Urea nitrogen [Mass/Vol] 15 mg/dL 7-18 [facility] Work Phone: Thin prep Papanicolaou smear with manual screeningon 01-13-2022 Thin prep Papanicolaou smear with manual screening 14 U/L 15-37 [facility] Work Phone: Thin prep Papanicolaou smear with manual screening 6 5-15 [facility] Work Phone: CNOVon 01-09-2022 CNOV Office Visit (OBGWMA ) GEMINI OLSENAN ([id number]) 1960 F Date Time Provider Department 01/09/22 10:30 AM DARLINE BARNHART OBGWMO During your visit today, we recorded the following information about you: Blood pressure Weight Height 142/88 79.4 kg 1.549 m Darline Barnhart MD 01/09/2022 10:43 AM Signed Juan is a 62 year old who presents for an annual gynecologic exam without complaints. Postmenopausal: Yes HRT use: Yes Last Pap: normal HPV: negative History of abnormal pap: No Last mammogram: 2018 normal History of abnormal mammogram: No Sexually active: Yes OB History T3 L3 SAB0 IAB0 Ectopic0 Multiple0 Live Births0 [employer] History LMP: Hysterectomy Age at Menarche: Age at First : Age at Menopause: [employer] History Comments: Sexual Activity: Yes; Male Contraception: Surgical PAST MEDICAL HISTORY Diagnosis Date - Blood transfusion abn reaction or complication, no procedure mishap from diverticulitis - Diverticulitis of both large and small intestine - Endometriosis - Hemorrhoids - Hypertension - Hypothyroid - Menopause - Thyroid disorder PAST SURGICAL HISTORY Procedure Laterality Date - SECTION HX x3 - CHOLECYSTECTOMY HX 2008 - ELBOW SURGERY HX 12/08/2017 - INGUINAL HERNIA REPAIR HX Left 06/24/2020 - PAST SURGICAL HISTORY OF 2013 Bowel removal- colon resection for diverticulitis - REPAIR INCISIONAL HERNIA,REDUCIBLE N/A 06/24/2020 - STRESS ECHO EXERCISE 02/12/2016 - TOTAL ABDOMINAL HYSTERECT W/WO RMVL TUBE OVARY 2004 FAMILY HISTORY Problem Relation Age of Onset - Diabetes Mother - Breast Cancer Mother - Ovarian cancer Mother - Heart Mother - Thyroid Mother - Diabetes Father - Colon Cancer Father - Heart Father - Thyroid Father - Stroke Sister - Heart disease Brother - No Known Problems Sister - No Known Problems Sister - No Known Problems Sister - No Known Problems Sister - Heart disease Brother - No Known Problems Brother - No Known Problems Brother - No Known Problems Brother - No Known Problems Brother - No Known Problems Brother - No Known Problems Brother - No Known Problems Brother SOCIAL HISTORY Social History Tobacco Use - Smoking status: Current Every Day Smoker Packs/day: 1.00 Years: 40.00 Pack years: 40.00 Types: Cigarettes - Smokeless tobacco: Never Used Vaping Use - Vaping Use: Never used Substance Use Topics - Alcohol use: Yes Alcohol/week: 1.0 - 2.0 standard drink Types: 1 - 2 Glasses of Wine (5oz) per week - Drug use: No REVIEW OF SYSTEMS Abdomen: No abdominal pain, nausea, vomiting, diarrhea, or constipation. No bloating, early satiety, indigestion, or increased flatulence. Bladder: No dysuria, gross hematuria, urinary frequency, urinary urgency, or incontinence Breast: No breast lumps, nipple d/c, overlying skin changes, redness or skin retraction Allergies and current medication updated:Yes EXAM: BP 142/88 Ht 5' 1 (1.55m) Wt 175 lb (79.4kg) BMI 33.08 kg/(m2). GENERAL: pleasant, female in no apparent distress HEENT: Normocephalic, atraumatic, mucus membranes moist and no lesions NECK: Supple, full range of motion, no adenopathy and thyroid normal DERMATOLOGY: Normal, without lesions, non-icteric and non-hirsute BREAST: soft, non-tender, symmetric, no dominant mass, normal nipple-areolar complex, no lymphadenopathy and no nipple discharge CHEST: Normal inspiratory effort ABDOMEN: soft, non-tender and no masses PELVIC: external genitalia normal, normal Bartholin's glands, urethra, Chipley's glands, no vulvar lesions,, physiologic discharge present, normal appearing perineal body and perianal region BIMANUAL: non-tender RECTOVAGINAL: rectovaginal exam negative for any masses or nodularity. NEURO: alert and oriented x3,exam grossly non-focal EXTREMITIES: normal ASSESSMENT/PLAN: 1) Health maintenance: Pap/HPV screening no longer needed Mammogram ordered Colon cancer screening: patient to discuss with PCP Reorder ert will decrease triest dosage 2) Follow up one year or sooner as needed MD Darline Khoury MD 01/09/2022 10:32 AM Signed ACOG Screening Guidelines The following health screening schedule is recommended by the [employer] (ACOG). Some of these tests may be ordered or performed by your primary care doctor. Pap test screening The pap test looks at cells on the cervix (the opening from the vagina to the uterus) to look for cancer or pre-cancerous changes. These changes are caused by the human papillomavirus (HPV). Studies estimate that half of all women will test positive for this virus within 3 years of starting sexual activity. For young women with a normal immune system, 90% of HPV infections will resolve within 2 years. There is a vaccine available aga (more content not included)... Normal [facility] Shazia 12-01-2021 RAÚL Telephone (OBGWMA) JUAN OLSEN ([id number]) 1960 F Date Time Provider Department 12/01/21 DARLINE BARNHART During your visit today, we recorded the following information about you: Aissatou Turner LPN 12/01/2021 11:43 AM Signed Patient calling nurse triage requesting refill of medication below. Scheduled for AE 01/09/2022 Summary: Comments for compounding pharmacy: TRIESTROGEN 5 MG/TESTOSTERONE 1.5 MG CAPSULES [facility], Disp-90 tablet, R-1 Dx: 1. Symptoms, such as flushing, sleeplessness, headache, lack of concentration, associated with the menopause [place] [address] [phone] ?- [phone] LEXI Christian LPN 12/02/2021 10:54 AM Signed Refill called into pharmacy per Dr. Barnhart request. Aissatou Turner LPN Allergies As of Date: 12/01/2021 Noted Allergy Reaction HYDROCODONE-ACETAMINO PHEN 03/02/2016 2 - Rash PENICILLINS 03/02/2016 2 - Rash TOMATOES 06/11/2020 8 - GI Upset Date Reviewed: 05/19/2021 Reviewed by: Viktoria Galindo Ma - Fully Assessed Reason for Visit: Refill Request [94] Prescriptions as of 12/02/2021 - ethinyl estradiol, testosterone (CPD) Comments for compounding pharmacy: TRIESTROGEN 5 MG/TESTOSTERONE 1.5 MG CAPSULES - cetirizine HCl (CETIRIZINE ORAL) Take 10 mg by mouth once daily. - MULTI-VITAMIN ORAL Take by mouth. - aspirin, enteric coated (ASPIRIN LOW DOSE) 81 mg EC tablet Take 81 mg by mouth once daily. - lisinopril-hydrochlor othiazide (PRINZIDE, ZESTORETIC) 20-25 mg per tablet Take 0.5 tablets by mouth once daily. - levothyroxine (SYNTHROID) 137 mcg tablet Take 137 mcg by mouth once daily. Problem List As Of Date 12/01/2021 Noted Resolved Hypotension [I95.9] 12/17/2018 12/18/2018 Precordial chest pain [R07.2] 12/17/2018 12/18/2018 Elevated lactic acid level [R79.89] 12/17/2018 12/18/2018 Hypokalemia [E87.6] 12/17/2018 12/18/2018 Essential hypertension [I10] 12/17/2018 Acquired hypothyroidism [E03.9] 12/17/2018 Nicotine use disorder, F17.2 [F17.200] 12/18/2018 Obesity, Class I, BMI 30-34.9 [E66.9] 12/18/2018 Hyperlipidemia, unspecified [E78.5] 02/12/2016 Sleep apnea, unspecified [G47.30] 02/12/2016 Incisional hernia, without obstruction or gangr*06/24/2020 Left groin pain [R10.32] 06/24/2020 Encounter Status:Closed by AISSATOU TURNER on 12/01/21 Normal [facility] MR Hip - left WO contraston 06-27-2021 IMPRESSION: Mild osteoarthritis left hip. No labral tear. Degenerative changes of the lower lumbar spine. Hyster Machine Operator: LOS Transcribe Date/Time: Jun 27 2021 1:45P Dictated by : CARLOS OROURKE DO This examination was interpreted and the report reviewed and electronically signed by: JUANPABLO BRANDT MD on Jun 27 2021 5:17PM [facility] DIVISION OF RADIOLOGY * * *Final Report* * * DATE OF EXAM: Jun 27 2021 12:55PM [facility] 0206 - MRI HIP WO IVCON LT / PROCEDURE REASON: Pain in hip * * * * Physician Interpretation * * * * EXAMINATION: MRI HIP WO IVCON LT HISTORY: Pain in hip. 61-year-old female with pain for 2 years in the anterior left hip, concern for labral tear. Femoral acetabular impingement. TECHNIQUE: Routine multiplanar MRI of the hip without contrast COMPARISON: Left hip radiographs 06/20/2021. RESULT: Hip joints: Left hip: Small areas of complete cartilage loss or fissuring with subchondral reactive marrow edema in the anterior acetabulum.. The acetabular labrum is intact. There is no joint effusion. No AVN or fracture. Large [id number] images of the right hip are unremarkable. Evaluation of articular cartilage and labrum is limited. Bone Marrow: No fracture or suspicious marrow replacing lesions. Mild increased T2 signal abnormality at the pubic symphysis, likely reactive to degenerative change. Sacroiliac joints: Within normal limits. Pubic symphysis: Within normal limits. Tendons: Mild right gluteus minimus and medius insertional tendinosis. The iliopsoas, hamstring, other gluteal, and rectus femoris tendons are intact. Muscles: Within normal limits. Mild edema in the right quadratus femoris. Other: No other significant findings. Degenerative changes of the lumbar spine with decreased T1 and increased T2 signal abnormality right L4-L5. Small Tarlov cyst. Localizer images: Right renal cyst. DIVISION OF RADIOLOGY Provider, [facility] - 06/27/2021 * * *Final Report* * * DATE OF EXAM: Jun 27 2021 12:55PM [facility] 0206 - MRI HIP WO IVCON LT / PROCEDURE REASON: Pain in hip * * * * Physician Interpretation * * * * EXAMINATION: MRI HIP WO IVCON LT HISTORY: Pain in hip. 61-year-old female with pain for 2 years in the anterior left hip, concern for labral tear. Femoral acetabular impingement. TECHNIQUE: Routine multiplanar MRI of the hip without contrast COMPARISON: Left hip radiographs 06/20/2021. RESULT: Hip joints: Left hip: Small areas of complete cartilage loss or fissuring with subchondral reactive marrow edema in the anterior acetabulum.. The acetabular labrum is intact. There is no joint effusion. No AVN or fracture. Large rzakq-mz-wzrp images of the right hip are unremarkable. Evaluation of articular cartilage and labrum is limited. Bone Marrow: No fracture or suspicious marrow replacing lesions. Mild increased T2 signal abnormality at the pubic symphysis, likely reactive to degenerative change. Sacroiliac joints: Within normal limits. Pubic symphysis: Within normal limits. Tendons: Mild right gluteus minimus and medius insertional tendinosis. The iliopsoas, hamstring, other gluteal, and rectus femoris tendons are intact. Muscles: Within normal limits. Mild edema in the right quadratus femoris. Other: No other significant findings. Degenerative changes of the lumbar spine with decreased T1 and increased T2 signal abnormality right L4-L5. Small Tarlov cyst. Localizer images: Right renal cyst. IMPRESSION IMPRESSION: Mild osteoarthritis left hip. No labral tear. Degenerative changes of the lower lumbar spine. Hyster Machine Operator: LOS Transcribe Date/Time: Jun 27 2021 1:45P Dictated by : CARLOS OROURKE DO This examination was interpreted and the report reviewed and electronically signed by: JUANPABLO BRANDT MD on Jun 27 2021 5:17PM EST [facility] Radiology Study observation (narrative) [facility] MR Hip - left WO contrastOrd ered By: [facility] Provider on 06-27-2021 [facility] XR HIP GENERAL 3V PELV/AP/LA T LTon 06-10-2021 [facility] [place] ARTHR/ASP/INJ MAJOR JT/BU RSA LT WO USon 01-15-2020 Patient Name: JUAN OLSEN ---Fluoroscopy--- Exam Date/Time 01/15/2020 11:48:47 EDT Exam RF Arthrogram Aspir Inj Natan Jt Left Ordering Physician MD MALISSA, FELIPE GIPSON Accession Number [id number] CTP4 Codes 87496 (), 80846 (RF FLUORO GUIDANCE NEEDLE PLACEMENT) Reason For Exam other specified joint disorders of left hip Report Examination: Fluoroscopic guided left hip arthrogram and therapeutic injection Clinical Indication: DJD and pain Comparison: None Findings: Informed written consent was obtained from the patient after the risks, benefits, and alternatives to arthrography and therapeutic injection were adequately explained and all questions were answered. The left hip was prepared and draped in usual sterile fashion utilizing Betadine antisepsis. One percent lidocaine was used for local anesthesia. A 20-gauge spinal needle was then introduced into the left hip joint space utilizing fluoroscopy. Approximately 1 mL of Isovue-300 contrast was used to confirm intra-articular location. Patient was then given injection of 2.5 mL of 40 mg/mL Kenalog (60mg) and 2.5 mL of lidocaine. Patient had no immediate postprocedural complications. Patient described no immediate postprocedural pain relief. Total fluoroscopic time 0.2 minutes. One stored fluoroscopic image obtained. Impression: Status post left hip arthrogram and therapeutic injection. Report Dictated on --- Final --- Dictated: 01/15/2020 2:29 pm Dictating Physician: MD STEVENSON ANTHONY J Signed Date and Time: 01/15/2020 2:30 pm Signed by: MD STEVENSON ANTHONY J Transcribed Date and Time: 01/15/2020 2:29 [facility], [place], [facility] Incoming Radiology Results From [facility] - 01/15/2020 2:31 PM EDT Patient Name: JUAN OLSEN ---Fluoroscopy--- Exam Date/Time 01/15/2020 11:48:47 EDT Exam RF Arthrogram Aspir Inj Natan Jt Left Ordering Physician MD MALISSA, FELIPE GIPSON Accession Number [id number] CTP4 Codes 47361 (), 81741 (RF FLUORO GUIDANCE NEEDLE PLACEMENT) Reason For Exam other specified joint disorders of left hip Report Examination: Fluoroscopic guided left hip arthrogram and therapeutic injection Clinical Indication: DJD and pain Comparison: None Findings: Informed written consent was obtained from the patient after the risks, benefits, and alternatives to arthrography and therapeutic injection were adequately explained and all questions were answered. The left hip was prepared and draped in usual sterile fashion utilizing Betadine antisepsis. One percent lidocaine was used for local anesthesia. A 20-gauge spinal needle was then introduced into the left hip joint space utilizing fluoroscopy. Approximately 1 mL of Isovue-300 contrast was used to confirm intra-articular location. Patient was then given injection of 2.5 mL of 40 mg/mL Kenalog (60mg) and 2.5 mL of lidocaine. Patient had no immediate postprocedural complications. Patient described no immediate postprocedural pain relief. Total fluoroscopic time 0.2 minutes. One stored fluoroscopic image obtained. Impression: Status post left hip arthrogram and therapeutic injection. Report Dictated on --- Final --- Dictated: 01/15/2020 2:29 pm Dictating Physician: MD STEVENSON ANTHONY J Signed Date and Time: 01/15/2020 2:30 pm Signed by: MD STEVENSON ANTHONY J Transcribed Date and Time: 01/15/2020 2:29 [place], [place] RF Arthrogram Aspir Inj Natan Jt Lefton 01-15-2020 RF Arthrogram Aspir Inj Natan Jt Left Patient Name: JUAN OLSEN Fluoroscopy Exam Date/Time 01/15/2020 11:48:47 EDT Exam RF Arthrogram Aspir Inj Natan Jt Left Ordering Physician MD MALISSA, FELIPE GIPSON Accession Number [id number] [facility] Codes 51848 (), 35163 (RF FLUORO GUIDANCE NEEDLE PLACEMENT) Reason For Exam other specified joint disorders of left hip Report Examination: Fluoroscopic guided left hip arthrogram and therapeutic injection Clinical Indication: DJD and pain Comparison: None Findings: Informed written consent was obtained from the patient after the risks, benefits, and alternatives to arthrography and therapeutic injection were adequately explained and all questions were answered. The left hip was prepared and draped in usual sterile fashion utilizing Betadine antisepsis. One percent lidocaine was used for local anesthesia. A 20-gauge spinal needle was then introduced into the left hip joint space utilizing fluoroscopy. Approximately 1 mL of Isovue-300 contrast was used to confirm intra-articular location. Patient was then given injection of 2.5 mL of 40 mg/mL Kenalog (60mg) and 2.5 mL of lidocaine. Patient had no immediate postprocedural complications. Patient described no immediate postprocedural pain relief. Total fluoroscopic time 0.2 minutes. One stored fluoroscopic image obtained. Impression: Status post left hip arthrogram and therapeutic injection. Report Dictated on Final Dictated: 01/15/2020 2:29 pm Dictating Physician: MD STEVENSON ANTHONY J Signed Date and Time: 01/15/2020 2:30 pm Signed by: MD STEVENSON ANTHONY J Transcribed Date and Time: 01/15/2020 2:29 Normal [facility] [place] ARTHR/ASP/INJ MAJOR JT/BU RSA LT WO USon 01-03-2020 Patient Name: JUAN OLSEN ---Fluoroscopy--- Exam Date/Time 01/03/2020 09:59:37 EDT Exam RF Arthrogram Aspir Inj Natan Jt Left Ordering Physician MD MALISSA, FELIPE GIPSON Accession Number [id number] [facility]4 Codes 53178 (), 13609 (RF FLUORO GUIDANCE NEEDLE PLACEMENT), 33910 (RF INJ HIP ARTHRO W/O ANESTHESIA LT) Reason For Exam other specified joint disorders of left hip Report Examination: Left hip injection Indication: Hip pain Findings: Informed consent was obtained. Following this the patient was prepped and draped in a sterile fashion. Approximately 7 cc of 0.5 percent ropivacaine was used for local anesthesia. Fluoroscopic guidance was used to introduce a spinal needle into the hip joint. A small amount of iodinated contrast (Isovue 300) was used to verify position within the hip joint. There was no significant fluid to aspirate. Approximately 10 cc of a dilute gadolinium mixture (10 cc sterile saline, 10 cc ropivacaine and 0.1 cc gadolinium) was injected into the joint. The patient tolerated the procedure well without any immediate complications. Two fluoroscopic images were obtained (utilizing last image hold technique). Total fluoroscopy time was approximately 0.2 minute. Impression: Successful hip injection for MR arthrogram. The patient experienced relief of pain following injection. Examination: MR arthrogram left hip Indication: Left hip pain Technique: T1 fat-saturated MR arthrographic images of the left hip were obtained all in all three planes. Additionally, T2 fat-saturated coronal and axial images were obtained as well as spin echo T1 coronal images. Findings: There is no obvious labral tear. The contour of the femoral head is unremarkable in appearance. Alpha angle is grossly normal. Cephalad acetabular version is . There is no subchondral edema or subchondral cystic change. The articular cartilage is grossly intact and unremarkable in appearance. The ligamentum teres is grossly unremarkable. The musculature is unremarkable as is the rectus femoris origin and iliopsoas tendon. Ischiofemoral interval measures 1.83 cm. There is no significant edema within the interval. The gluteal tendon insertions on the greater trochanter are grossly intact. Impression: No obvious labral tear. Report Dictated on --- Final --- Dictated: 01/03/2020 3:46 pm Dictating Physician: MD CARSON KRIKOR Signed Date and Time: 01/03/2020 4:25 pm Signed by: MD CARSON KRIKOR Transcribed Date and Time: 01/03/2020 3:46 [facility] [place] [place], [facility] Incoming Radiology Results From [facility] - 01/03/2020 4:27 PM EDT Patient Name: JUAN OLSEN ---Fluoroscopy--- Exam Date/Time 01/03/2020 09:59:37 EDT Exam RF Arthrogram Aspir Inj Natan Jt Left Ordering Physician MD MALISSA, FELIPE GIPSON Accession Number [id number] CTP4 Codes 13640 (), 91195 (RF FLUORO GUIDANCE NEEDLE PLACEMENT), 72546 (RF INJ HIP ARTHRO W/O ANESTHESIA LT) Reason For Exam other specified joint disorders of left hip Report Examination: Left hip injection Indication: Hip pain Findings: Informed consent was obtained. Following this the patient was prepped and draped in a sterile fashion. Approximately 7 cc of 0.5 percent ropivacaine was used for local anesthesia. Fluoroscopic guidance was used to introduce a spinal needle into the hip joint. A small amount of iodinated contrast (Isovue 300) was used to verify position within the hip joint. There was no significant fluid to aspirate. Approximately 10 cc of a dilute gadolinium mixture (10 cc sterile saline, 10 cc ropivacaine and 0.1 cc gadolinium) was injected into the joint. The patient tolerated the procedure well without any immediate complications. Two fluoroscopic images were obtained (utilizing last image hold technique). Total fluoroscopy time was approximately 0.2 minute. Impression: Successful hip injection for MR arthrogram. The patient experienced relief of pain following injection. Examination: MR arthrogram left hip Indication: Left hip pain Technique: T1 fat-saturated MR arthrographic images of the left hip were obtained all in all three planes. Additionally, T2 fat-saturated coronal and axial images were obtained as well as spin echo T1 coronal images. Findings: There is no obvious labral tear. The contour of the femoral head is unremarkable in appearance. Alpha angle is grossly normal. Cephalad acetabular version is . There is no subchondral edema or subchondral cystic change. The articular cartilage is grossly intact and unremarkable in appearance. The ligamentum teres is grossly unremarkable. The musculature is unremarkable as is the rectus femoris origin and iliopsoas tendon. Ischiofemoral interval measures 1.83 cm. There is no significant edema within the interval. The gluteal tendon insertions on the greater trochanter are grossly intact. Impression: No obvious labral tear. Report Dictated on --- Final --- Dictated: 01/03/2020 3:46 pm Dictating Physician: MD CARSON KRIKOR Signed Date and Time: 01/03/2020 4:25 pm Signed by: MD CARSON KRIKOR Transcribed Date and Time: 01/03/2020 3:46 [place], [place] MRI LOWER EXTREMITY LEFT W J T W CONTRASTon 01-03-2020 Patient Name: JUAN OLSEN ---MRI--- Exam Date/Time 01/03/2020 10:32:25 EDT Exam MRI Low Ext Joint w/ Contrast Left Ordering Physician MD MALISSA, FELIPE GIPSON Accession Number [id number] CPT4 Codes 74013 () Reason For Exam left hip disorder post arthrogram Report Examination: Left hip injection Indication: Hip pain Findings: Informed consent was obtained. Following this the patient was prepped and draped in a sterile fashion. Approximately 7 cc of 0.5 percent ropivacaine was used for local anesthesia. Fluoroscopic guidance was used to introduce a spinal needle into the hip joint. A small amount of iodinated contrast (Isovue 300) was used to verify position within the hip joint. There was no significant fluid to aspirate. Approximately 10 cc of a dilute gadolinium mixture (10 cc sterile saline, 10 cc ropivacaine and 0.1 cc gadolinium) was injected into the joint. The patient tolerated the procedure well without any immediate complications. Two fluoroscopic images were obtained (utilizing last image hold technique). Total fluoroscopy time was approximately 0.2 minute. Impression: Successful hip injection for MR arthrogram. The patient experienced relief of pain following injection. Examination: MR arthrogram left hip Indication: Left hip pain Technique: T1 fat-saturated MR arthrographic images of the left hip were obtained all in all three planes. Additionally, T2 fat-saturated coronal and axial images were obtained as well as spin echo T1 coronal images. Findings: There is no obvious labral tear. The contour of the femoral head is unremarkable in appearance. Alpha angle is grossly normal. Cephalad acetabular version is . There is no subchondral edema or subchondral cystic change. The articular cartilage is grossly intact and unremarkable in appearance. The ligamentum teres is grossly unremarkable. The musculature is unremarkable as is the rectus femoris origin and iliopsoas tendon. Ischiofemoral interval measures 1.83 cm. There is no significant edema within the interval. The gluteal tendon insertions on the greater trochanter are grossly intact. Impression: No obvious labral tear. Report Dictated on --- Final --- Dictated: 01/03/2020 3:46 pm Dictating Physician: MD CARSON KRIKOR Signed Date and Time: 01/03/2020 4:25 pm Signed by: MD CARSON KRIKOR Transcribed Date and Time: 01/03/2020 3:46 [place], [place] Zack Garcia Incoming Radiology Results From [facility] - 01/03/2020 4:27 PM EDT Patient Name: JUAN OLSEN ---MRI--- Exam Date/Time 01/03/2020 10:32:25 EDT Exam MRI Low Ext Joint w/ Contrast Left Ordering Physician MD MALISSA, FELIPE GIPSON Accession Number [id number] CPT4 Codes 76431 () Reason For Exam left hip disorder post arthrogram Report Examination: Left hip injection Indication: Hip pain Findings: Informed consent was obtained. Following this the patient was prepped and draped in a sterile fashion. Approximately 7 cc of 0.5 percent ropivacaine was used for local anesthesia. Fluoroscopic guidance was used to introduce a spinal needle into the hip joint. A small amount of iodinated contrast (Isovue 300) was used to verify position within the hip joint. There was no significant fluid to aspirate. Approximately 10 cc of a dilute gadolinium mixture (10 cc sterile saline, 10 cc ropivacaine and 0.1 cc gadolinium) was injected into the joint. The patient tolerated the procedure well without any immediate complications. Two fluoroscopic images were obtained (utilizing last image hold technique). Total fluoroscopy time was approximately 0.2 minute. Impression: Successful hip injection for MR arthrogram. The patient experienced relief of pain following injection. Examination: MR arthrogram left hip Indication: Left hip pain Technique: T1 fat-saturated MR arthrographic images of the left hip were obtained all in all three planes. Additionally, T2 fat-saturated coronal and axial images were obtained as well as spin echo T1 coronal images. Findings: There is no obvious labral tear. The contour of the femoral head is unremarkable in appearance. Alpha angle is grossly normal. Cephalad acetabular version is . There is no subchondral edema or subchondral cystic change. The articular cartilage is grossly intact and unremarkable in appearance. The ligamentum teres is grossly unremarkable. The musculature is unremarkable as is the rectus femoris origin and iliopsoas tendon. Ischiofemoral interval measures 1.83 cm. There is no significant edema within the interval. The gluteal tendon insertions on the greater trochanter are grossly intact. Impression: No obvious labral tear. Report Dictated on --- Final --- Dictated: 01/03/2020 3:46 pm Dictating Physician: MD CARSON KRIKOR Signed Date and Time: 01/03/2020 4:25 pm Signed by: MD CARSON KRIKOR Transcribed Date and Time: 01/03/2020 3:46 [place], [place] MRI Low Ext Joint w/ Contras t Lefton 01-03-2020 MRI Low Ext Joint w/ Contrast Left Patient Name: JUAN OLSEN MRI Exam Date/Time 01/03/2020 10:32:25 EDT Exam MRI Low Ext Joint w/ Contrast Left Ordering Physician MD PEDERSON JOVAN RISTE Accession Number [id number] CPT4 Codes 18596 () Reason For Exam left hip disorder post arthrogram Report Examination: Left hip injection Indication: Hip pain Findings: Informed consent was obtained. Following this the patient was prepped and draped in a sterile fashion. Approximately 7 cc of 0.5 percent ropivacaine was used for local anesthesia. Fluoroscopic guidance was used to introduce a spinal needle into the hip joint. A small amount of iodinated contrast (Isovue 300) was used to verify position within the hip joint. There was no significant fluid to aspirate. Approximately 10 cc of a dilute gadolinium mixture (10 cc sterile saline, 10 cc ropivacaine and 0.1 cc gadolinium) was injected into the joint. The patient tolerated the procedure well without any immediate complications. Two fluoroscopic images were obtained (utilizing last image hold technique). Total fluoroscopy time was approximately 0.2 minute. Impression: Successful hip injection for MR arthrogram. The patient experienced relief of pain following injection. Examination: MR arthrogram left hip Indication: Left hip pain Technique: T1 fat-saturated MR arthrographic images of the left hip were obtained all in all three planes. Additionally, T2 fat-saturated coronal and axial images were obtained as well as spin echo T1 coronal images. Findings: There is no obvious labral tear. The contour of the femoral head is unremarkable in appearance. Alpha angle is grossly normal. Cephalad acetabular version is . There is no subchondral edema or subchondral cystic change. The articular cartilage is grossly intact and unremarkable in appearance. The ligamentum teres is grossly unremarkable. The musculature is unremarkable as is the rectus femoris origin and iliopsoas tendon. Ischiofemoral interval measures 1.83 cm. There is no significant edema within the interval. The gluteal tendon insertions on the greater trochanter are grossly intact. Impression: No obvious labral tear. Report Dictated on Final Dictated: 01/03/2020 3:46 pm Dictating Physician: MD CARSON KRIKOR Signed Date and Time: 01/03/2020 4:25 pm Signed by: MD CARSON KRIKOR Transcribed Date and Time: 01/03/2020 3:46 Normal [facility] RF Arthrogram Aspir Inj Natan Jt Lefton 01-03-2020 RF Arthrogram Aspir Inj Natan Jt Left Patient Name: JUAN OLSEN Fluoroscopy Exam Date/Time 01/03/2020 09:59:37 EDT Exam RF Arthrogram Aspir Inj Natan Jt Left Ordering Physician MD MALISSA, FELIPE GIPSON Accession Number [id number] [facility]4 Codes 33738 (), 48709 (RF FLUORO GUIDANCE NEEDLE PLACEMENT), 49940 (RF INJ HIP ARTHRO W/O ANESTHESIA LT) Reason For Exam other specified joint disorders of left hip Report Examination: Left hip injection Indication: Hip pain Findings: Informed consent was obtained. Following this the patient was prepped and draped in a sterile fashion. Approximately 7 cc of 0.5 percent ropivacaine was used for local anesthesia. Fluoroscopic guidance was used to introduce a spinal needle into the hip joint. A small amount of iodinated contrast (Isovue 300) was used to verify position within the hip joint. There was no significant fluid to aspirate. Approximately 10 cc of a dilute gadolinium mixture (10 cc sterile saline, 10 cc ropivacaine and 0.1 cc gadolinium) was injected into the joint. The patient tolerated the procedure well without any immediate complications. Two fluoroscopic images were obtained (utilizing last image hold technique). Total fluoroscopy time was approximately 0.2 minute. Impression: Successful hip injection for MR arthrogram. The patient experienced relief of pain following injection. Examination: MR arthrogram left hip Indication: Left hip pain Technique: T1 fat-saturated MR arthrographic images of the left hip were obtained all in all three planes. Additionally, T2 fat-saturated coronal and axial images were obtained as well as spin echo T1 coronal images. Findings: There is no obvious labral tear. The contour of the femoral head is unremarkable in appearance. Alpha angle is grossly normal. Cephalad acetabular version is . There is no subchondral edema or subchondral cystic change. The articular cartilage is grossly intact and unremarkable in appearance. The ligamentum teres is grossly unremarkable. The musculature is unremarkable as is the rectus femoris origin and iliopsoas tendon. Ischiofemoral interval measures 1.83 cm. There is no significant edema within the interval. The gluteal tendon insertions on the greater trochanter are grossly intact. Impression: No obvious labral tear. Report Dictated on Final Dictated: 01/03/2020 3:46 pm Dictating Physician: MD CARSON KRIKOR Signed Date and Time: 01/03/2020 4:25 pm Signed by: MD CARSON KRIKOR Transcribed Date and Time: 01/03/2020 3:46 Normal [facility] MAMMOGRAM SCREENING WITH CAD IF PERFORMEDon 03-10-2018 MAMMOGRAM SCREENING WITH CAD IF PERFORMED Performed at [facility] APPROVED BY: Anthony Seaman MD #[id number] - MAMMOGRAM SCREENING WITH CAD IF PERFORMEDBILATERAL DIGITAL SCREENING MAMMOGRAM WITH CAD WITH MEDIOLATERAL OBLIQUE CRANIOCAUDAL: 03/10/2018CLINICAL: Routine screening mammogram. Patient reports no breast problems. Comparison is made to exams dated: 02/18/2016 mammogram - [facility], 04/24/2014 mammogram, and 04/25/2010 mammogram - [facility]. There are scattered fibroglandular elements in both breasts. Current study was also evaluated with a Computer Aided Detection (CAD) system. No significant masses, calcifications, or other findings are seen in either breast. There has been no significant interval change. IMPRESSION: NEGATIVEThere is no mammographic evidence of malignancy. A 1 year screening mammogram is recommended. Based on a modified Susie Model, this patient's calculated lifetime risk of developing breast cancer is 7.1%. The patient was notified of the results. Anthony celestin/eve:03/10/2018 16:26:13 Residential Green Building Designer: Kalyani Contreras)(Whit), [facility] Normal Birad 1 or 2 Mammogram BI-RADS: 1 Negative Normal [facility] Cult Urineon 03-07-2018 Cult Urine Test performed at [facility] No growth Normal [facility] Comment on above: Performed By: #### C _URI ####[facility] [place] [address] US Pelvis TA/TVon 09-22-2017 US Pelvis TA/TV Patient Name: JUAN OLSEN Ultrasound Exam Date/Time 09/22/2017 13:03:36 EST Exam US Pelvis TA/TV Ordering Physician SHANIA CHO CONNOR N Accession Number [id number] CPT4 Codes 76038 (US Pelvis TA/TV), 39144 (US Transvaginal) Reason For Exam pelvic pain, postmenopausal Report Pelvic ultrasound: Transabdominal, transvaginal: 09/22/2017. CLINICAL INFORMATION: Pelvic pain, status post hysterectomy. FINDINGS: Sonographic examination of pelvis was performed transabdominally and transvaginally. The patient is status post hysterectomy and bilateral oophorectomy. The vaginal cuff was seen. No free pelvic fluid or cystic pelvic masses are seen. IMPRESSION: Status post hysterectomy. No abnormalities identified. Report Dictated on Final Dictating Physician: MD VIRA, MARIANA Signed Date and Time: 09/22/2017 1:07 pm Signed by: MD CONSTANTINO RISA Transcribed Date and Time: 09/22/2017 1:08 Normal [facility] Otheron 01-16-2005 CONVERTED ELECTRONIC SIGNATURE DARINEL BETTS M.D., PATHOLOGIST (Electronic signature on file) Final Signed Out: 01/16/2005 14:36 [facility] CONVERTED FINAL DIAGNOSIS UTERUS AND BILATERAL OVARIES AND FALLOPIAN TUBES, HYSTERECTOMY/BILATERA L SALPINGO-OOPHORECTOMY - CERVIX - NO PATHOLOGIC ABNORMALITIES. ENDOMETRIUM - PROLIFERATIVE PHASE. MYOMETRIUM - LEIOMYOMATA AND ADENOMYOSIS. OVARIES, BILATERAL - FOCAL CHANGES SUGGESTING PREVIOUSLY TREATED ENDOMETRIOSIS. FALLOPIAN TUBES, BILATERAL - STATUS POST PARTIAL SALPINGECTOMIES. [facility] CONVERTED ORDERING PROVIDER Ordering Provider: ALEJANDRO SUÁREZ [facility] Otheron 05-27-2000 CONVERTED ELECTRONIC SIGNATURE TAINA JOEL M.D., PATHOLOGIST (Electronic signature on file) Final Signed Out: 05/27/2000 15:50 [facility] CONVERTED FINAL DIAGNOSIS SPECIMEN ADEQUACY SATISFACTORY FOR EVALUATION GENERAL CATEGORIZATION BENIGN CELLULAR CHANGES DESCRIPTIVE DIAGNOSIS HYPERKERATOSIS AND PARAKERATOSIS, PROLIFERATIVE SURFACE REACTIONS. HORMONAL EVALUATION HORMONAL PATTERN COMPATIBLE WITH AGE AND HISTORY RECOMMENDATION REPEAT WITHIN 1 YEAR, OR CLINICALLY INDICATED. [facility] CONVERTED ORDERING PROVIDER Ordering Provider: SONIA NORTON [facility] CONVERTED PAP DISCLAIMER The Pap test serves as a screening tool for early detection of cervical cancer. The Pap test does not represent a final diagnostic test for cervical cancer. Furthermore, the Pap test was not designed to screen for other malignancies (endometrial, ovarian cancer, etc....). False negatives and false positives have occurred. If clinically indicated, further patient evaluation is recommended. [facility] Vital Signs Date Time Vital Sign Value Performing Clinician Facility 02-15-2025 22:15-0400 Diastolic blood pressure 95 mm[Hg] Glendy Anderson FURNACE OPERATOR AND TENDER-MANAGER SKILLED Work Phone: [facility] 02-15-2025 22:15-0400 Heart rate 74 /min Glendy Anderson FURNACE OPERATOR AND TENDER-MANAGER SKILLED Work Phone: [facility] 02-15-2025 22:15-0400 Respiratory rate 16 /min Glendy Anderson FURNACE OPERATOR AND TENDER-MANAGER SKILLED Work Phone: [facility] 02-15-2025 22:15-0400 SaO2% (BldA) [Mass fraction] 96 % Glendy Anderson FURNACE OPERATOR AND TENDER-MANAGER SKILLED Work Phone: [facility] 02-15-2025 22:15-0400 Systolic blood pressure 139 mm[Hg] Glendy Anderson FURNACE OPERATOR AND TENDER-MANAGER SKILLED Work Phone: [facility] 02-15-2025 18:37-0400 Body height 154.9 cm Glendy Anderson FURNACE OPERATOR AND TENDER-MANAGER SKILLED Work Phone: [facility] 02-15-2025 18:37-0400 Body mass index (BMI) [Ratio] 33.63 kg/m2 Glendy Anderson FURNACE OPERATOR AND TENDER-MANAGER SKILLED Work Phone: [facility] 02-15-2025 18:37-0400 Body temperature 97.7 [degF] Glendy Anderson FURNACE OPERATOR AND TENDER-MANAGER SKILLED Work Phone: [facility] 02-15-2025 18:37-0400 Body weight 80.74 kg Glendy Anderson FURNACE OPERATOR AND TENDER-MANAGER SKILLED Work Phone: [facility] 02-01-2025 17:15-0400 Body height 157.48 cm Glendy Anderson CIVIL ENGINEER'S AIDE-C Work Phone: [facility] 02-01-2025 17:15-0400 Body mass index (BMI) [Ratio] 32.5 kg/m2 Glendy Anderson CIVIL ENGINEER'S AIDE-C Work Phone: [facility] 02-01-2025 17:15-0400 Body temperature 97.5 [degF] Glendy Anderson CIVIL ENGINEER'S AIDE-C Work Phone: [facility] 02-01-2025 17:15-0400 Body weight 80.73 kg Glendy Anderson CIVIL ENGINEER'S AIDE-C Work Phone: [facility] 02-01-2025 17:15-0400 Diastolic blood pressure 80 mm[Hg] Glendy Anderson CIVIL ENGINEER'S AIDE-C Work Phone: [facility] 02-01-2025 17:15-0400 Heart rate 74 /min Glendy Anderson CIVIL ENGINEER'S AIDE-C Work Phone: [facility] 02-01-2025 17:15-0400 Respiratory rate 18 /min Glendytahir Anderson CIVIL ENGINEER'S AIDE-C Work Phone: [facility] 02-01-2025 17:15-0400 SaO2% (BldA) [Mass fraction] 98 % Glendy Anderson CIVIL ENGINEER'S AIDE-C Work Phone: [facility] 02-01-2025 17:15-0400 Systolic blood pressure 185 mm[Hg] Glendy Anderson CIVIL ENGINEER'S AIDE-C Work Phone: [facility] 01-09-2025 15:13-0400 Body mass index (BMI) [Ratio] 32.5 kg/m2 Glendytahir Anderson CIVIL ENGINEER'S AIDE-C Work Phone: [facility] 01-09-2025 15:13-0400 Body temperature 97.7 [degF] Glendy Anderson CIVIL ENGINEER'S AIDE-C Work Phone: [facility] 01-09-2025 15:13-0400 Body weight 80.73 kg Glendy Anderson CIVIL ENGINEER'S AIDE-C Work Phone: [facility] 01-09-2025 15:13-0400 Diastolic blood pressure 80 mm[Hg] Glendy Anderson CIVIL ENGINEER'S AIDE-C Work Phone: [facility] 01-09-2025 15:13-0400 Heart rate 73 /min Glendy Anderson CIVIL ENGINEER'S AIDE-C Work Phone: [facility] 01-09-2025 15:13-0400 Respiratory rate 18 /min Glendy Anderson CIVIL ENGINEER'S AIDE-C Work Phone: [facility] 01-09-2025 15:13-0400 SaO2% (BldA) [Mass fraction] 73 % Glendy Anderson CIVIL ENGINEER'S AIDE-C Work Phone: [facility] 01-09-2025 15:13-0400 Systolic blood pressure 168 mm[Hg] Glendy Anderson CIVIL ENGINEER'S AIDE-C Work Phone: [facility] 11-30-2024 13:38-0400 Diastolic blood pressure 75 mm[Hg] Yadira Merida DO Work Phone: [facility] Comment on above: Pt reports she took her BP medication. P t educated to follow up with PC in regards to BP. 11-30-2024 13:38-0400 Heart rate 58 /min Yadira Merida DO Work Phone: [facility] 11-30-2024 13:38-0400 Respiratory rate 17 /min Yadira Merida DO Work Phone: [facility] 11-30-2024 13:38-0400 SaO2% (BldA) [Mass fraction] 96 % Yadira Merida DO Work Phone: [facility] 11-30-2024 13:38-0400 Systolic blood pressure 173 mm[Hg] Yadira Merida DO Work Phone: [facility] Comment on above: Pt reports she took her BP medication. P t educated to follow up with PC in regards to BP. 11-30-2024 10:34-0400 Body height 154.9 cm Yadira Merida DO Work Phone: [facility] 11-30-2024 10:34-0400 Body mass index (BMI) [Ratio] 32.88 kg/m2 Yadira Merida DO Work Phone: [facility] 11-30-2024 10:34-0400 Body temperature 98.01 [degF] Yadira Merida DO Work Phone: [facility] 11-30-2024 10:34-0400 Body weight 78.93 kg Yadira Merida DO Work Phone: [facility] 10-11-2024 16:33-0400 Body mass index (BMI) [Ratio] 31.8 kg/m2 Glendy Anderson CIVIL ENGINEER'S AIDE-C Work Phone: [facility] 10-11-2024 16:33-0400 Body temperature 97.7 [degF] Glendy Anderson CIVIL ENGINEER'S AIDE-C Work Phone: [facility] 10-11-2024 16:33-0400 Body weight 78.92 kg Glendy Anderson CIVIL ENGINEER'S AIDE-C Work Phone: [facility] 10-11-2024 16:33-0400 Diastolic blood pressure 90 mm[Hg] Glendy Anderson CIVIL ENGINEER'S AIDE-C Work Phone: [facility] 10-11-2024 16:33-0400 Heart rate 68 /min Glendy Anderson CIVIL ENGINEER'S AIDE-C Work Phone: [facility] 10-11-2024 16:33-0400 Respiratory rate 18 /min Glendy Anderson CIVIL ENGINEER'S AIDE-C Work Phone: [facility] 10-11-2024 16:33-0400 SaO2% (BldA) [Mass fraction] 98 % Glendy Anderson CIVIL ENGINEER'S AIDE-C Work Phone: [facility] 10-11-2024 16:33-0400 Systolic blood pressure 150 mm[Hg] Glendy Anderson CIVIL ENGINEER'S AIDE-C Work Phone: [facility] 02-02-2024 08:26-0400 Body height 154.[address] 02-02-2024 08:26-0400 Body mass index (BMI) [Ratio] 31.38 kg/m2 [address] 07-03-2024 08:26-0400 Body weight 75.3 kg u 1 [facility] 01-11-2024 10:02-0400 Body height 154.9 cm Cheli Wright MD Work Phone: [facility] 01-11-2024 10:02-0400 Body mass index (BMI) [Ratio] 32.5 kg/m2 Cheli Wright MD Work Phone: [facility] 01-11-2024 10:02-0400 Body temperature 98.2 [degF] Cheli Wright MD Work Phone: [facility] 01-11-2024 10:02-0400 Body weight 78.02 kg Cheli Wright MD Work Phone: [facility] 01-11-2024 10:02-0400 Diastolic blood pressure 88 mm[Hg] Cheli Wright MD Work Phone: [facility] 01-11-2024 10:02-0400 Heart rate 73 /min Cheli Wright MD Work Phone: [facility] 01-11-2024 10:02-0400 SaO2% (BldA) [Mass fraction] 98 % Cheli Wright MD Work Phone: [facility] 01-11-2024 10:02-0400 Systolic blood pressure 126 mm[Hg] Cheli Wright MD Work Phone: [facility] 03-30-2023 18:32-0400 Body height 157.48 cm CIVIL ENGINEER'S AIDEFox Anderson CIVIL ENGINEER'S AIDE Work Phone: [facility] 03-30-2023 18:32-0400 Body mass index (BMI) [Ratio] 31.4 kg/m2 SUZIE Anderson CIVIL ENGINEER'S AIDE Work Phone: [facility] 03-30-2023 18:32-0400 Body temperature 97 [degF] SUZIE Anderson CIVIL ENGINEER'S AIDE Work Phone: [facility] 03-30-2023 18:32-0400 Body weight 78.01 kg CIVIL ENGINEER'S AIDE-C Glendy Anderson CIVIL ENGINEER'S AIDE Work Phone: [facility] 03-30-2023 18:32-0400 Diastolic blood pressure 80 mm[Hg] CIVIL ENGINEER'S AIDE-C Glendy Anderson CIVIL ENGINEER'S AIDE Work Phone: [facility] 03-30-2023 18:32-0400 Heart rate 72 /min CIVIL ENGINEER'S AIDE-C Glendy Anderson CIVIL ENGINEER'S AIDE Work Phone: [facility] 03-30-2023 18:32-0400 Respiratory rate 18 /min CIVIL ENGINEER'S AIDE-C Glendy Anderson CIVIL ENGINEER'S AIDE Work Phone: [facility] 03-30-2023 18:32-0400 SaO2% (BldA) [Mass fraction] 96 % CIVIL ENGINEER'S AIDE-C Glendy Anderson CIVIL ENGINEER'S AIDE Work Phone: [facility] 03-30-2023 18:32-0400 Systolic blood pressure 120 mm[Hg] CIVIL ENGINEER'S AIDE-C Glendy Anderson CIVIL ENGINEER'S AIDE Work Phone: [facility] 02-23-2023 08:09-0400 Body mass index (BMI) [Ratio] 30.9 kg/m2 CIVIL ENGINEER'S AIDE-C Glendy Anderson CIVIL ENGINEER'S AIDE Work Phone: [facility] 02-23-2023 08:09-0400 Body temperature 96.6 [degF] CIVIL ENGINEER'S AIDE-C Glendy Anderson CIVIL ENGINEER'S AIDE Work Phone: [facility] 02-23-2023 08:09-0400 Body weight 76.65 kg CIVIL ENGINEER'S AIDE-C Glendy Anderson CIVIL ENGINEER'S AIDE Work Phone: [facility] 02-23-2023 08:09-0400 Diastolic blood pressure 99 mm[Hg] CIVIL ENGINEER'S AIDE-C Glendy Anderson CIVIL ENGINEER'S AIDE Work Phone: [facility] 02-23-2023 08:09-0400 Heart rate 64 /min CIVIL ENGINEER'S AIDE-C Glendy Anderson CIVIL ENGINEER'S AIDE Work Phone: [facility] 02-23-2023 08:09-0400 Respiratory rate 18 /min CIVIL ENGINEER'S AIDE-C Glendy Anderson CIVIL ENGINEER'S AIDE Work Phone: [facility] 02-23-2023 08:09-0400 SaO2% (BldA) [Mass fraction] 96 % CIVIL ENGINEER'S AIDE-C Glendy Anderson CIVIL ENGINEER'S AIDE Work Phone: [facility] 02-23-2023 08:09-0400 Systolic blood pressure 161 mm[Hg] CIVIL ENGINEER'S AIDE-C Glendy Anderson CIVIL ENGINEER'S AIDE Work Phone: [facility] 02-11-2023 21:28-0400 Body mass index (BMI) [Ratio] 32.5 kg/m2 CIVIL ENGINEER'S AIDE-C Glendy Anderson CIVIL ENGINEER'S AIDE Work Phone: [facility] 02-11-2023 21:28-0400 Body temperature 96.8 [degF] CIVIL ENGINEER'S AIDE-C Glendy Anderson CIVIL ENGINEER'S AIDE Work Phone: [facility] 02-11-2023 21:28-0400 Body weight 80.73 kg CIVIL ENGINEER'S AIDE-C Glendy Anderson CIVIL ENGINEER'S AIDE Work Phone: [facility] 02-11-2023 21:28-0400 Diastolic blood pressure 70 mm[Hg] CIVIL ENGINEER'S AIDE-C Glendy Anderson CIVIL ENGINEER'S AIDE Work Phone: [facility] 02-11-2023 21:28-0400 Heart rate 80 /min CIVIL ENGINEER'S AIDE-C Glendy Anderson CIVIL ENGINEER'S AIDE Work Phone: [facility] 02-11-2023 21:28-0400 Respiratory rate 18 /min CIVIL ENGINEER'S AIDE-C Glendy Anderson CIVIL ENGINEER'S AIDE Work Phone: [facility] 02-11-2023 21:28-0400 SaO2% (BldA) [Mass fraction] 96 % CIVIL ENGINEER'S AIDE-C Glendy Anderson CIVIL ENGINEER'S AIDE Work Phone: [facility] 02-11-2023 21:28-0400 Systolic blood pressure 130 mm[Hg] CIVIL ENGINEER'S AIDE-C Glendy Anderson CIVIL ENGINEER'S AIDE Work Phone: [facility] 01-27-2023 17:01-0400 Body height 157.48 cm CIVIL ENGINEER'S AIDE-C Glendy Anderson CIVIL ENGINEER'S AIDE Work Phone: [facility] 01-27-2023 17:01-0400 Body mass index (BMI) [Ratio] 32.5 kg/m2 CIVIL ENGINEER'S AIDE-C Glendy Anderson CIVIL ENGINEER'S AIDE Work Phone: [facility] 01-27-2023 17:01-0400 Body temperature 97.7 [degF] CIVIL ENGINEER'S AIDE-C Glendy Anderson CIVIL ENGINEER'S AIDE Work Phone: [facility] 01-27-2023 17:01-0400 Body weight 80.73 kg CIVIL ENGINEER'S AIDE-C Glendy Anderson CIVIL ENGINEER'S AIDE Work Phone: [facility] 01-27-2023 17:01-0400 Diastolic blood pressure 84 mm[Hg] CIVIL ENGINEER'S AIDE-C Glendy Anderson CIVIL ENGINEER'S AIDE Work Phone: [facility] 01-27-2023 17:01-0400 Heart rate 70 /min CIVIL ENGINEER'S AIDE-C Glendy Anderson CIVIL ENGINEER'S AIDE Work Phone: [facility] 01-27-2023 17:01-0400 Respiratory rate 18 /min CIVIL ENGINEER'S AIDE-C Glendy Anderson CIVIL ENGINEER'S AIDE Work Phone: [facility] 01-27-2023 17:01-0400 SaO2% (BldA) [Mass fraction] 95 % CIVIL ENGINEER'S AIDE-C Glendy Anderson CIVIL ENGINEER'S AIDE Work Phone: [facility] 01-27-2023 17:01-0400 Systolic blood pressure 178 mm[Hg] CIVIL ENGINEER'S AIDE-C Glendy Anderson CIVIL ENGINEER'S AIDE Work Phone: [facility] 12-10-2022 17:14-0400 Body mass index (BMI) [Ratio] 32.3 kg/m2 CIVIL ENGINEER'S AIDE-C Glendy Dominguezson CIVIL ENGINEER'S AIDE Work Phone: [facility] 12-10-2022 17:14-0400 Body temperature 97.9 [degF] CIVIL ENGINEER'S AIDE-C Glendy Dominguezson CIVIL ENGINEER'S AIDE Work Phone: [facility] 12-10-2022 17:14-0400 Body weight 80.28 kg CIVIL ENGINEER'S AIDE-C Glendy Anderson CIVIL ENGINEER'S AIDE Work Phone: [facility] 12-10-2022 17:14-0400 Diastolic blood pressure 70 mm[Hg] CIVIL ENGINEER'S AIDE-C Glendy Anderson CIVIL ENGINEER'S AIDE Work Phone: [facility] 12-10-2022 17:14-0400 Heart rate 79 /min CIVIL ENGINEER'S AIDE-C Glendy Anderson CIVIL ENGINEER'S AIDE Work Phone: [facility] 12-10-2022 17:14-0400 Respiratory rate 18 /min CIVIL ENGINEER'S AIDE-C Glendy Anderson CIVIL ENGINEER'S AIDE Work Phone: [facility] 12-10-2022 17:14-0400 SaO2% (BldA) [Mass fraction] 97 % CIVIL ENGINEER'S AIDE-C Glendy Anderson CIVIL ENGINEER'S AIDE Work Phone: [facility] 12-10-2022 17:14-0400 Systolic blood pressure 130 mm[Hg] CIVIL ENGINEER'S AIDE-C Glendy Anderson CIVIL ENGINEER'S AIDE Work Phone: [facility] 11-03-2022 08:11-0400 Body height 157.48 cm CIVIL ENGINEER'S AIDE-C Glendy Anderson CIVIL ENGINEER'S AIDE Work Phone: [facility] 11-03-2022 08:06-0400 Body mass index (BMI) [Ratio] 32 kg/m2 CIVIL ENGINEER'S AIDE-C Glendy Anderson CIVIL ENGINEER'S AIDE Work Phone: [facility] 11-03-2022 08:06-0400 Body temperature 97 [degF] CIVIL ENGINEER'S AIDE-C Glendy Anderson CIVIL ENGINEER'S AIDE Work Phone: [facility] 11-03-2022 08:06-0400 Body weight 79.37 kg CIVIL ENGINEER'S AIDE-C Glendy Anderson CIVIL ENGINEER'S AIDE Work Phone: [facility] 11-03-2022 08:06-0400 Diastolic blood pressure 95 mm[Hg] CIVIL ENGINEER'S AIDE-C Glendy Anderson CIVIL ENGINEER'S AIDE Work Phone: [facility] 11-03-2022 08:06-0400 Heart rate 87 /min CIVIL ENGINEER'S AIDE-C Glendy Anderson CIVIL ENGINEER'S AIDE Work Phone: [facility] 11-03-2022 08:06-0400 Respiratory rate 18 /min CIVIL ENGINEER'S AIDE-C Glendy Justin CIVIL ENGINEER'S AIDE Work Phone: [facility] 11-03-2022 08:06-0400 SaO2% (BldA) [Mass fraction] 98 % CIVIL ENGINEER'S AIDE-C Glendy Anderson CIVIL ENGINEER'S AIDE Work Phone: [facility] 11-03-2022 08:06-0400 Systolic blood pressure 187 mm[Hg] CIVIL ENGINEER'S AIDE-C Glendy Anderson CIVIL ENGINEER'S AIDE Work Phone: [facility] 10-19-2022 15:47-0400 Body mass index (BMI) [Ratio] 31.6 kg/m2 CIVIL ENGINEER'S AIDE-C Glendy Anderson CIVIL ENGINEER'S AIDE Work Phone: [facility] 10-19-2022 15:47-0400 Body temperature 97.9 [degF] CIVIL ENGINEER'S AIDE-C Glendy Anderson CIVIL ENGINEER'S AIDE Work Phone: [facility] 10-19-2022 15:47-0400 Body weight 78.47 kg CIVIL ENGINEER'S AIDE-C Glendy Anderson CIVIL ENGINEER'S AIDE Work Phone: [facility] 10-19-2022 15:47-0400 Diastolic blood pressure 70 mm[Hg] CIVIL ENGINEER'S AIDE-C Glendy Anderson CIVIL ENGINEER'S AIDE Work Phone: [facility] 10-19-2022 15:47-0400 Heart rate 73 /min CIVIL ENGINEER'S AIDE-C Glendy Anderson CIVIL ENGINEER'S AIDE Work Phone: [facility] 10-19-2022 15:47-0400 Respiratory rate 18 /min CIVIL ENGINEER'S AIDE-C Glendy Anderson CIVIL ENGINEER'S AIDE Work Phone: [facility] 10-19-2022 15:47-0400 SaO2% (BldA) [Mass fraction] 97 % CIVIL ENGINEER'S AIDE-C Glendy Anderson CIVIL ENGINEER'S AIDE Work Phone: [facility] 10-19-2022 15:47-0400 Systolic blood pressure 120 mm[Hg] CIVIL ENGINEER'S AIDE-C Glendy Anderson CIVIL ENGINEER'S AIDE Work Phone: [facility] 10-01-2022 18:49-0500 Body mass index (BMI) [Ratio] 32.9 kg/m2 CIVIL ENGINEER'S AIDE-C Glendy Anderson CIVIL ENGINEER'S AIDE Work Phone: [facility] 10-01-2022 18:49-0500 Body temperature 97.7 [degF] CIVIL ENGINEER'S AIDE-C Glendy Anderson CIVIL ENGINEER'S AIDE Work Phone: [facility] 10-01-2022 18:49-0500 Body weight 81.64 kg CIVIL ENGINEER'S AIDE-C Glendy Anderson CIVIL ENGINEER'S AIDE Work Phone: [facility] 10-01-2022 18:49-0500 Diastolic blood pressure 80 mm[Hg] CIVIL ENGINEER'S AIDE-C Glendy Anderson CIVIL ENGINEER'S AIDE Work Phone: [facility] 10-01-2022 18:49-0500 Heart rate 81 /min CIVIL ENGINEER'S AIDE-C Glendy Anderson CIVIL ENGINEER'S AIDE Work Phone: [facility] 10-01-2022 18:49-0500 Respiratory rate 18 /min CIVIL ENGINEER'S AIDE-C Glendy Anderson CIVIL ENGINEER'S AIDE Work Phone: [facility] 10-01-2022 18:49-0500 SaO2% (BldA) [Mass fraction] 95 % CIVIL ENGINEER'S AIDE-C Glendy Anderson CIVIL ENGINEER'S AIDE Work Phone: [facility] 10-01-2022 18:49-0500 Systolic blood pressure 130 mm[Hg] CIVIL ENGINEER'S AIDE-C Glendy Anderson CIVIL ENGINEER'S AIDE Work Phone: [facility] 07-28-2022 15:35-0500 Body height 157.48 cm [facility] Work Phone: 07-28-2022 15:35-0500 Body mass index (BMI) [Ratio] 32 kg/m2 [facility] 07-28-2022 15:35-0500 Body temperature 97.7 [degF] [facility] 07-28-2022 15:35-0500 Body weight 79.37 kg [facility] 07-28-2022 15:35-0500 Diastolic blood pressure 74 mm[Hg] [facility] 07-28-2022 15:35-0500 Heart rate 74 /min [facility] 07-28-2022 15:35-0500 Respiratory rate 18 /min [facility] 07-28-2022 15:35-0500 SaO2% (BldA) [Mass fraction] 97 % [facility] 07-28-2022 15:35-0500 Systolic blood pressure 140 mm[Hg] [facility] 04-13-2022 15:46-0400 Body mass index (BMI) [Ratio] 31.4 kg/m2 [facility] Work Phone: 04-13-2022 15:46-0400 Body temperature 96.8 [degF] [facility] Work Phone: 04-13-2022 15:46-0400 Body weight 78.01 kg [facility] Work Phone: 04-13-2022 15:46-0400 Diastolic blood pressure 76 mm[Hg] [facility] Work Phone: 04-13-2022 15:46-0400 Heart rate 86 /min [facility] Work Phone: 04-13-2022 15:46-0400 Respiratory rate 18 /min [facility] Work Phone: 04-13-2022 15:46-0400 SaO2% (BldA) [Mass fraction] 96 % [facility] Work Phone: 04-13-2022 15:46-0400 Systolic blood pressure 140 mm[Hg] [facility] Work Phone: 02-11-2022 10:57-0400 Body height 154.9 cm Gena Menendez MD Work Phone: [facility] 02-11-2022 10:57-0400 Body weight 77.11 kg Gena Menendez MD Work Phone: [facility] 02-11-2022 10:57-0400 Diastolic blood pressure 90 mm[Hg] Gena Menendez MD Work Phone: [facility] 02-11-2022 10:57-0400 Heart rate 70 /min Gena Menendez MD Work Phone: [facility] 02-11-2022 10:57-0400 Systolic blood pressure 140 mm[Hg] Gena Menendez MD Work Phone: [facility] 01-28-2022 09:33-0400 Body height 154.9 cm Gena Menendez MD Work Phone: [facility] 01-28-2022 09:33-0400 Body weight 78.16 kg Gena Menendez MD Work Phone: [facility] 01-28-2022 09:33-0400 Diastolic blood pressure 74 mm[Hg] Gena Menendez MD Work Phone: [facility] 01-28-2022 09:33-0400 Heart rate 85 /min Gena Menendez MD Work Phone: [facility] 01-28-2022 09:33-0400 SaO2% (BldA) [Mass fraction] 100 % Gena Menendez MD Work Phone: [facility] 01-28-2022 09:33-0400 Systolic blood pressure 158 mm[Hg] Gena Menendez MD Work Phone: [facility] 01-15-2022 18:03-0400 Body height 157.48 cm [facility] Work Phone: 01-15-2022 18:03-0400 Body mass index (BMI) [Ratio] 29.9 kg/m2 [facility] Work Phone: 01-15-2022 18:03-0400 Body temperature 98.1 [degF] [facility] Work Phone: 01-15-2022 18:03-0400 Body weight 74.38 kg [facility] Work Phone: 01-15-2022 18:03-0400 Diastolic blood pressure 70 mm[Hg] [facility] Work Phone: 01-15-2022 18:03-0400 Heart rate 87 /min [facility] Work Phone: 01-15-2022 18:03-0400 Respiratory rate 8 /min [facility] Work Phone: 01-15-2022 18:03-0400 SaO2% (BldA) [Mass fraction] 94 % [facility] Work Phone: 01-15-2022 18:03-0400 Systolic blood pressure 122 mm[Hg] [facility] Work Phone: 01-13-2022 14:37-0400 Body mass index (BMI) [Ratio] 29.9 kg/m2 [facility] Work Phone: 01-13-2022 14:37-0400 Body temperature 97.2 [degF] [facility] Work Phone: 01-13-2022 14:37-0400 Body weight 74.38 kg [facility] Work Phone: 01-13-2022 14:37-0400 Diastolic blood pressure 74 mm[Hg] [facility] Work Phone: 01-13-2022 14:37-0400 Heart rate 73 /min [facility] Work Phone: 01-13-2022 14:37-0400 Respiratory rate 18 /min [facility] Work Phone: 01-13-2022 14:37-0400 SaO2% (BldA) [Mass fraction] 95 % [facility] Work Phone: 01-13-2022 14:37-0400 Systolic blood pressure 112 mm[Hg] [facility] Work Phone: 01-09-2022 10:22-0400 Body height 154.9 cm Darline Barnhart MD Work Phone: [facility] 01-09-2022 10:22-0400 Body weight 79.38 kg Darline Barnhart MD Work Phone: [facility] 01-09-2022 10:22-0400 Diastolic blood pressure 88 mm[Hg] Darline Barnhart MD Work Phone: [facility] 01-09-2022 10: Systolic blood pressure 142 mm[Hg] Darline Barnhart MD Work Phone: [facility] Encounters Encounter Date Encounter Type Care Provider Facility Start: 02-15-2025 End: 02-15-2025 Emergency department patient visit GLENDY ANDERSON [facility] Emergency Medicine Comment on above: Syncope, unspecified syncope type (Primary Dx) Start: 02-01-2025 End: 02-01-2025 ambulatory Glendy Anderson CIVIL ENGINEER'S AIDE-C Work Phone: -Laboratory Specimen Start: 02-01-2025 End: 02-01-2025 Patient encounter procedure Glendy Anderson CIVIL ENGINEER'S AIDE-C -Laboratory Specimen Work Phone: Start: 02-01-2025 End: 02-01-2025 ambulatory Glendy Anderson CIVIL ENGINEER'S AIDE Facility:[facility] Start: 11-30-2024 End: 11-30-2024 Emergency department patient visit Yadira Merida Work Phone: [facility] ED Comment on above: Lower abdominal pain (Primary Dx) Start: 07-17-2024 End: 07-17-2024 ambulatory Glendy Anderson CIVIL ENGINEER'S AIDE Facility:[facility] Start: 03-21-2024 ambulatory Glendy Anderson CIVIL ENGINEER'S AIDE Faci lity:[facility] Start: 03-09-2024 End: 03-09-2024 ambulatory Glendy Anderson CIVIL ENGINEER'S AIDE Facility:[facility] Start: 02-02-2024 End: 02-02-2024 ambulatory [facility] Start: 02-02-2024 End: 02-02-2024 Subsequent hospital visit by physician Ju Leonardo Ultrasound 1 [facility] Comment on above: Screening mammogram for breast cancer; Abnormal mammogram Start: 02-02-2024 End: 02-02-2024 ambulatory [facility] Start: 01-25-2024 End: 01-25-2024 Subsequent hospital visit by physician Rad External Film EF RAD EXTERNAL FILM VIRTUAL Comment on above: Arrived Start: 01-25-2024 End: 01-25-2024 ambulatory CHELI Sherman [facility] Start: 01-11-2024 End: 01-11-2024 Office outpatient new 45 minutes Cheli Wright MD Work Phone: [facility]/Peds Comment on above: Screening mammogram for breast cancer (Primary Dx); Abnormal mammogram; Obstructive sleep apnea syndrome; Routine general medical examination at a health care facility; Type 2 diabetes mellitus without complication, without long-term current use of insulin (Multi) Start: 01-11-2024 End: 01-11-2024 Patient encounter status Cheli Wright MD Work Phone: [facility] Work Phone: Start: 01-11-2024 End: 01-11-2024 ambulatory [facility] Ambulatory Start: 01-11-2024 End: 01-11-2024 Encounter for general adult medical examination without abnormal findings [facility] Ambulatory Start: 07-23-2023 ambulatory GLENDY ANDERSON [facility] ity:[facility] Start: 06-10-2023 Telephone encounter Gena davila MD Work Phone: General Surgery Start: 03-30-2023 End: 03-30-2023 ambulatory CIVIL ENGINEER'S AIDE-Leslie Anderson CIVIL ENGINEER'S AIDE Work Phone: [facility] Work Phone: Start: 03-30-2023 End: 03-30-2023 Patient encounter procedure CIVIL ENGINEER'S AIDEFox Anderson CIVIL ENGINEER'S AIDE Work Phone: [facility]-Laboratory, Specimen Work Phone: Start: 03-24-2023 E-mail encounter fro m caregiver Darline Barnhart MD Work Phone: [facility] Start: 03-24-2023 Follow-up encounter Darline Barnhart MD Work Phone: [facility] Comment on above: reminder to gete fol low up images Start: 03-18-[address] El Romeo acility:[id number] Start: 02-23-2023 End: 02-23-2023 Patient encounter procedure CIVIL ENGINEER'S AIDE-C Glendy Anderson CIVIL ENGINEER'S AIDE Work Phone: [facility]-Pulmonary Medicine [facility] Work Phone: Start: 02-10-2023 Orders Only Gena Menendez MD Work Phone: General Surgery Comment on above: Encounter for screen ing for malignant neoplasm of colon (Primary Dx); Family history of colonic polyps Start: 01-27-2023 End: 01-27-2023 ambulatory CIVIL ENGINEER'S AIDE-C Glendy Anderson CIVIL ENGINEER'S AIDE Work Phone: [facility] Work Phone: Start: 01-27-2023 End: 01-27-2023 Patient encounter procedure CIVIL ENGINEER'S AIDE-C Glendy Anderson CIVIL ENGINEER'S AIDE Work Phone: [facility]-Laboratory, Specimen Work Phone: Start: 11-18-2022 Non-patient / Non-visit CIVIL ENGINEER'S AIDE-C Carrie Anderson CIVIL ENGINEER'S AIDE Work Phone: [facility] Start: 11-17-2022 End: 11-17-2022 ambulatory CIVIL ENGINEER'S AIDE-C Glendy Anderson CIVIL ENGINEER'S AIDE Work Phone: [facility] Work Phone: Start: 11-17-2022 End: 11-17-2022 Patient encounter procedure CIVIL ENGINEER'S AIDE-C Glendy Anderson CIVIL ENGINEER'S AIDE Work Phone: [facility]-Pulmonary Services/Neurology Start: 11-13-2022 End: 11-13-2022 Patient encounter procedure CIVIL ENGINEER'S AIDE-C Glendy Anderson CIVIL ENGINEER'S AIDE Work Phone: [facility]-Sleep Lab Start: 11-04-2022 Telephone encounter Darline Barnhart MD Work Phone: [facility] Comment on above: Results Start: 11-03-2022 End: 11-03-2022 ambulatory CIVIL ENGINEER'S AIDE-C Glendy Anderson CIVIL ENGINEER'S AIDE Work Phone: [facility] Work Phone: Start: 11-03-2022 End: 11-03-2022 Patient encounter procedure CIVIL ENGINEER'S AIDE-Leslie Anderson CIVIL ENGINEER'S AIDE Work Phone: [facility]-Laboratory, OP Pavilion Start: 11-03-2022 End: 11-03-2022 Patient encounter procedure CIVIL ENGINEER'S AIDE-Leslie Anderson CIVIL ENGINEER'S AIDE Work Phone: [facility]-Pulmonary Medicine [facility] Start: 11-02-2022 ambulatory DARLINE BARNHART Facili ty:[facility] Start: 11-02-2022 End: 11-02-2022 Subsequent hospital visit by physician Screen/Diagnostic Mammo [facility] Work Phone: Mammography Comment on above: Follow-up examinatio n of abnormal mammogram [R92.8] Start: 10-27-2022 ambulatory Darline rhodes MD Work Phone: [facility] Comment on above: Juan Olsen Start: 07-28-2022 End: 07-28-2022 ambulatory [facility] Work Phone: Start: 07-28-2022 End: 07-28-2022 Patient encounter procedure [facility]-Laboratory, Specimen Start: 03-10-2022 Telephone encounter Darline Barnhart MD Work Phone: [facility] Comment on above: Results Start: 03-02-2022 End: 03-02-2022 Subsequent hospital visit by physician Screen/Diagnostic Mammo 2 [facility] Work Phone: Mammography Start: 02-11-2022 End: 02-11-2022 Subsequent hospital visit by physician [facility] Start: 02-11-2022 End: 02-11-2022 Patient encounter procedure Gena Menendez MD Work Phone: General Surgery Comment on above: Infection in abdomen (HCC) Start: 01-28-2022 End: 01-28-2022 Patient encounter procedure Gena Menendez MD Work Phone: General Surgery Comment on above: Generalized abdomina l pain (Primary Dx) Start: 01-14-2022 Telephone encounter Darline Barnhart MD Work Phone: [facility] Comment on above: Results (Mammogream results) Start: 01-13-2022 End: 01-13-2022 Patient encounter procedure [facility]-Laboratory, Specimen Start: 01-13-2022 Documentation procedure Mammography Coordinator [facility] Start: 01-13-2022 Letter encounter Mammography Coordin ator [facility] Department Start: 01-13-2022 End: 01-13-2022 Orders Only Darline Barnhart MD Work Phone: [facility] Obstetrics & Gynecology Comment on above: Abnormal mammogram ( Primary Dx) Encounter for screen ing mammogram for breast cancer [Z12.31] Start: 01-09-2022 End: 01-09-2022 ambulatory DARLINE BARNHART Facility:[facility] Start: 01-09-2022 Encounter for gynecological examination (general) (routine) without abnormal findings DARLINE BARNHART [facility] Start: 01-09-2022 End: 01-09-2022 Patient encounter procedure Darline Barnhart MD Work Phone: [facility] Comment on above: Encounter for gyneco logical examination (general) (routine) without abnormal findings; Encounter for screening mammogram for breast cancer Start: 01-09-2022 End: 01-09-2022 Patient encounter status Darline Barnhart MD Work Phone: [facility] Start: 06-27-2021 End: 06-27-2021 Subsequent hospital visit by physician Mri Transportation Bl (Lg Bore/3t) Radiology Comment on above: Pain in hip [M25.559 ] Start: 06-10-2021 End: 06-10-2021 Subsequent hospital visit by physician Xr Ortho [facility] Rej Work Phone: Radiology Comment on above: Pain [R52] Start: 05-10-2020 End: 05-10-2020 Refill Darline Barnhart Work Phone: [facility] Comment on above: Refill Request; Refi ll Request Start: 01-15-2020 End: 01-15-2020 Subsequent hospital visit by physician Felipe Pederson Work Phone: [facility] X-Ray Comment on above: Arrived Start: 01-03-2020 End: 01-03-2020 Subsequent hospital visit by physician Felipe Pederson Work Phone: [facility] MRI Comment on above: Arrived Start: 10-19-2019 Patient encounter status [facility] Start: 04-22-2018 End: 04-22-2018 Patient encounter Kit BARNHART Facility:[facility] Start: 03-07-2018 End: 03-08-2018 Patient encounter Kit BARNHART Facility:[facility] Start: 03-07-2018 End: 03-07-2018 Patient encounter Kit BARNHART Facility:[facility] Start: 09-22-2017 Emergency department patient visit [facility] Start: 01-14-2005 End: 01-14-2005 Patient encounter procedure Alejandro Suárez Work Phone: [facility] Start: 01-14-2005 Results Only Alejandro Greenfiedl Sima christophertahir Work Phone: [facility] Start: 05-19-2000 End: 05-19-2000 Patient encounter procedure Sonia Norton Work Phone: [facility] Start: 05-19-2000 Results Only Soniator lentz Work Phone: [facility] Procedures Date Procedure Procedure Detail Performing Clinician Start: 02-15-2025 Assay of troponin quantitative Milly Francois FURNACE OPERATOR AND TENDER-MANAGER SKILLED Work Phone: Start: 02-15-2025 Radiologic exam ches t single view Milly Francois FURNACE OPERATOR AND TENDER-MANAGER SKILLED Work Phone: Start: 02-15-2025 Comprehensive metabo lic panel Milly Francois FURNACE OPERATOR AND TENDER-MANAGER SKILLED Work Phone: Start: 02-15-2025 HUSSEIN Jones DO Work Phone: Start: 02-15-2025 Troponin I.cardiac p joan - Serum or Plasma by High sensitivity method Milly Francois FURNACE OPERATOR AND TENDER-MANAGER SKILLED Work Phone: Start: 02-01-2025 Reactive lymphocyte count Glendy Anderson CIVIL ENGINEER'S AIDE-C Work Phone: Start: 02-01-2025 Serum globulin measurement Glendy Anderson CIVIL ENGINEER'S AIDE-C Work Phone: Start: 11-30-2024 Ct abdomen & pelvis w/contrast material Yadira Merida DO Work Phone: Start: 11-30-2024 Comprehensive metabo lic panel Yadira Merida DO Work Phone: Start: 02-02-2024 Us breast uni real t tara with image limited Cheli Wright MD Work Phone: Start: 02-02-2024 End: 02-02-2024 Mammography Cheli Wright MD Work Phone: Start: 01-25-2024 End: 01-25-2024 Study Interpretation of outside study Cheli Wright MD Work Phone: Start: 01-11-2024 Lipid 1996 panel - S rosalee or Plasma Rad Film Start: 01-11-2024 Thyrotropin [Units/v olume] in Serum or Plasma Rad Film Start: 07-23-2023 Colonoscopy Mri Bore/3 t) Start: 03-24-2023 Lipid 1996 panel - S rosalee or Plasma Cheli Wright MD Work Phone: Start: 11-02-2022 End: 11-02-2022 Digital breast tomosynthesis unilateral Darline Barnhart MD Work Phone: Start: 03-02-2022 Us breast uni real t tara with image limited Darline Barnhart MD Work Phone: Start: 03-02-2022 MIRZA DIAG W ARMEN RT Darline Barnhart MD Work Phone: Start: 01-13-2022 End: 01-13-2022 Mammography Darline Barnhart MD Work Phone: Start: 06-27-2021 Mri any jt lower ext rem w/o contrast matrl Demond Taylor MD Work Phone: Start: 06-10-2021 Radex hip unilateral with pelvis 2-3 views Donald Campo DO Work Phone: Start: 01-15-2020 Arthrocentesis aspir &/inj major jt/bursa w/o us Felipe R Laskovski Work Phone: Start: 01-03-2020 MRI LOWER EXTREMITY LEFT W JT W CONTRAST Felipe R Laskovski Work Phone: Start: 01-03-2020 Arthrocentesis aspir &/inj major jt/bursa w/o us Felipe R Laskovski Work Phone: Start: 12-18-2018 Lipid 1996 panel - S rosalee or Plasma Xr Rej Work Phone: Start: 04-22-2018 Colonoscopy Darline Barnhart MD Work Phone: Start: 03-10-2018 Mammography Alejandro arreguin Start: 01-14-2005 CONVERTED SURGICAL PATHOLOGY Alejandro Suárez Work Phone: Start: 05-19-2000 CONVERTED CYTOLOGY ASSOCIATE FINANCIAL ADVISOR Sonia Norton Work Phone: Plan of Treatment Date Care Activity Detail Author Start: 01-02-2036 RSV High Risk: (Elde rly (60+) or Population) (1 - 1-dose 75+ series) RSV High Risk: (Elderly (60+) or Population) (1 - 1-dose 75+ series) [facility] Start: 01-02-2036 RSV Immunization for Adults (1 - 1-dose 75+ series) RSV Immunization for Adults (1 - 1-dose 75+ series) [facility] [employer] Start: 01-02-2036 RSV Vaccine (1 - 1-d ose 75+ series) RSV Vaccine (1 - 1-dose 75+ series) [facility] Start: 07-23-2033 Screening for malign ant neoplasm of colon [facility] Start: 03-24-2028 Lipid panel Lipid Screening [facility] Start: 03-24-2026 Diabetes Screening Diabetes Screenin g [facility] Start: 11-30-2025 Diabetes: Estimated Glomerular Filtration Rate for Kidney Health Diabetes: Estimated Glomerular Filtration Rate for Kidney Health [facility] Start: 04-02-2025 Influenza vaccination S [facility] Start: 02-01-2025 Screening for malign ant neoplasm of breast Mammogram [facility] Start: 01-17-2025 DIABETES SCREEN DIABETES SCREEN [facility] Start: 01-17-2025 Diabetes Screening Diabetes Screenin g [facility] Start: 01-10-2025 Hemoglobin A1c measurement Diabetes: Hemoglobin A1C [facility] Start: 01-10-2025 Lipid panel Lipid Panel [facility] Start: 01-10-2025 Thyroid stimulating hormone measurement TSH Level [facility] Start: 07-23-2024 Screening for malign ant neoplasm of colon [facility] Start: 05-16-2024 End: 05-16-2024 Patient encounter procedure 05/16/2024 11:30 AM EDT Office Visit [facility] [address] [facility] [address] [place] [address] Tammy Giordano, FURNACE OPERATOR AND TENDER-MANAGER SKILLED [address] [facility] [address] [place] [address] [facility] Start: 04-12-2024 Hemoglobin A1c measurement Diabetes: Hemoglobin A1C [facility] Start: 04-02-2024 Covid-19 Vaccine ( season) Covid-19 Vaccine ( season) [facility] Start: 04-02-2024 Influenza vaccination U [facility] Start: 03-24-2024 Lipid panel Lipid Panel [facility] Start: 02-02-2024 End: 02-02-2024 Patient encounter procedure [facility] Start: 01-11-2024 End: 01-10-2025 Comprehensive metabolic 2000 panel - Serum or Plasma [facility] Work Phone: Comment on above: Expected: 01/11/2024 (Approximate), Expires: 01/10/2025 Start: 01-11-2024 End: 01-10-2025 Lipid 1996 panel - Serum or Plasma [facility] Work Phone: Comment on above: Expected: 01/11/2024 (Approximate), Expires: 01/10/2025 Start: 01-11-2024 End: 03-12-2025 MG Breast - bilateral Diagnostic BI mammo bilateral diagnostic Imaging Routine Screening mammogram for breast cancer Abnormal mammogram Expected: 01/11/2024, Expires: 03/12/2025 [facility] Service Area Work Phone: Comment on above: Expected: 01/11/2024 , Expires: 03/12/2025 Start: 01-11-2024 End: 01-10-2025 TSH with reflex to Free T4 if abnormal [facility] Work Phone: Comment on above: Expected: 01/11/2024 (Approximate), Expires: 01/10/2025 Start: 01-11-2024 End: 03-12-2025 US Breast - right BI US breast complete right Imaging Routine Screening mammogram for breast cancer Abnormal mammogram Expected: 01/11/2024, Expires: 03/12/2025 [facility] Work Phone: Comment on above: Expected: 01/11/2024 , Expires: 03/12/2025 Start: 12-19-2023 Lipid 1996 panel - S rosalee or Plasma Lipid Screening [facility] Start: 12-19-2023 LIPID SCREEN LIPID SCREEN [facility] Start: 11-03-2023 Screening for malign ant neoplasm of breast Mammogram [facility] Start: 06-20-2023 [facility]ABET[facility]CRE[facility] Start: 04-02-2023 COVID-19 Vaccine ( season) COVID-19 Vaccine () [facility] Start: 04-02-2023 Influenza vaccination C [facility] Start: 03-14-2023 Lipid panel Lipid screen [facility] th- [place], [place] Start: 01-13-2023 Mammography [facility] Start: 01-13-2023 Screening for malign ant neoplasm of breast Mammogram Screening [facility] Start: 01-09-2023 COLORECTAL CANCER SCREENING COLORECTAL CANCER SCREENING [facility] Comment on above: Postponed from 01/01 (Declined at this time) Start: 08-02-2022 [facility] Start: 07-31-2022 [facility] referral [facility] Work Phone: Start: 04-02-2022 Influenza vaccination C [facility] Start: 01-13-2022 Vitamin D, 1,25-dihy droxy measurement [facility] Work Phone: Start: 12-18-2021 DIABETES SCREEN DIABETES SCREEN [facility] Start: 09-02-2021 Screening for malign ant neoplasm of colon Colon cancer screen colonoscopy [place], [place] Start: 2021 RSV patient s and/or patients aged 60+ years (1 - 1-dose 60+ series) RSV patients and/or patients aged 60+ years (1 - 1-dose 60+ series) [facility] Start: 2021 RSV Vaccine (1 - 1-d ose 60+ series) RSV Vaccine (1 - 1-dose 60+ series) [facility] Start: 04-02-2020 Influenza vaccination M [place], [place] Start: 03-11-2020 Screening for malign ant neoplasm of breast Breast cancer screen [place], [place] Start: 04-22-2019 Colonoscopy COLONOSCOPY [facility] Start: 04-22-2019 COLORECTAL CANCER SCREENING COLORECTAL CANCER SCREENING [facility] Start: 04-22-2019 Tuberculosis screening COLOREC BERT CANCER SCREENING,SEE MODIFIER [facility] Start: 03-14-2019 Creatinine measurement Creatinine mo nitoring [place], [place] Start: 03-14-2019 HbA1c (Bld) [Mass fraction] A1C test (Diabetic or Prediabetic) [place] Start: 03-14-2019 Potassium monitoring Potassium monit oring [place] Start: 03-14-2019 TSH Qn TSH testing [place], [place] Start: 03-10-2019 Mammography MAMMOGRAM [facility] Start: 03-14-2017 Yearly Adult Physical Yearly Adult P [facility] Start: 01-02-2016 Influenza vaccination LUNG CANCER [facility] Start: 2011 Influenza vaccination LUNG CANCER [facility] Start: 2011 Pneumococcal Vaccine : 50+ Years (1 of 1 - PCV) Pneumococcal Vaccine: 50+ Years (1 of 1 - PCV) [facility] Start: 2011 Shingles Vaccine (1 of 2) Chowdhury gles Vaccine (1 of 2) [place] Start: 2011 SHINGRIX VACCINE (1 of 2) CHOWDHURY GRIX VACCINE (1 of 2) [facility] Start: 2011 Zoster Vaccines (1 of 2) Zoste r Vaccines (1 of 2) [facility] Start: 2006 COLOGUARD (FIT-DNA) COLOGUARD (FIT-D NA) [facility] Start: [address] COLONOGRAPHY [facility] Start: 2006 FECAL OCCULT BLOOD FECAL OCCULT BLOO D [facility] Start: 2006 Screening for malign ant neoplasm of colon [facility] Start: 2006 SIGMOIDOSCOPY SIGMO[facility]OSCOPY [facility] Start: 1983 DTaP/Tdap/Td Vaccine s (1 - Tdap) DTaP/Tdap/Td Vaccines (1 - Tdap) [facility] Start: 1982 Screening for malign ant neoplasm of cervix [facility] Start: 01-02-1980 DTaP/Tdap/Td vaccine (1 - Tdap) DTaP/Tdap/Td vaccine (1 - Tdap) [place] Start: 01-02-1980 DTaP/Tdap/Td Vaccine s (1 - Tdap) DTaP/Tdap/Td Vaccines (1 - Tdap) [facility] Start: 01-02-1980 Pneumococcal vaccination Pneum ococcal Vaccine (1 of 2 - PCV) [facility] Start: 01-02-1980 Urine microalbumin profile [facility] Start: 01-02-1980 Urine screening for protein Diabetes: Urine Protein Screening [facility] Start: 1979 ANNUAL PCP TEAM ELECTRIC METER TESTER MERISSA DISEASE VISIT ANNUAL PCP TEAM CHRONIC DISEASE VISIT [facility] Start: 1979 Anxiety Screening Anxiety Screening [facility] Start: 1979 BP CONTROLLED (<130/80) BP CONTROLLE D (<130/80) [facility] Start: 1979 Depression Screening Depression Scre ening [facility] Start: 1979 Diabetes: Urine Albumin-Creatinine Ratio for Kidney Health Diabetes: Urine Albumin-Creatinine Ratio for Kidney Health [facility] Start: 1979 HEPATITIS C SCREENING HEPATITIS C [facility] Start: 1979 Hepatitis C screening Hepatitis C Sc [facility] Start: 1979 [facility] Start: 1979 HIV screening HIV Screening [facility] Start: 01-02-1976 HIV screening HIV screen [place], [place] Start: 1973 Adult depression screening assessment DEPRESSION SCREENING [facility] Start: 1971 Diabetic foot examination Diabetes: Foot Exam [facility] Start: 1971 Glaucoma screening Diabetes: R etinopathy Screening [facility] Start: 1971 Preventive dental service Diabetes: Dental Exam [facility] Start: 1967 PNEUMOCOCCAL (1 - PCV) PNEUMOCOCCAL (1 - PCV) [facility] Start: 1967 Pneumococcal 0-64 ye ars Vaccine (1 of 1 - PPSV23) Pneumococcal 0-64 years Vaccine (1 of 1 - PPSV23) [place] Start: 1967 Pneumococcal vaccination [facility] Start: 1967 Pneumococcal Vaccine : Pediatrics (0 to 5 Years) and At-Risk Patients (6 to 64 Years) (1 of 2 - PCV) Pneumococcal Vaccine: Pediatrics (0 to 5 Years) and At-Risk Patients (6 to 64 Years) (1 of 2 - PCV) [facility] Start: 1966 COVID-19 VACCINE (#1) COVID-19 VACCI NE (#1) [facility] Start: 1962 MMR Vaccines (1 of 1 - Standard series) MMR Vaccines (1 of 1 - Standard series) [facility] Start: 1961 COVID-19 VACCINE (#1) COVID-19 VACCI NE (#1) [facility] Start: 1961 Hepatitis C screening Hepatitis C sc [place], [place] Start: 1961 HIV screening HIV Screening [facility] Start: 1961 Screening for malign ant neoplasm of colon [facility] Start: 1961 Thyroid stimulating hormone measurement TSH Level [facility] Start: 1961 Urine screening for protein Diabetes: Urine Protein Screening [facility] Start: 1961 Yearly Adult Physical Yearly Adult P [facility] CT Chest [facility] End: 02-12-2023 Diagnostic mammography computer-aided detcj uni [facility] DIAGNOSTIC RT Radiology Routine Abnormal mammogram 1 Occurrences starting 01/13/2022 until 02/12/2023 [facility] Work Phone: Comment on above: 1 Occurrences starti ng 01/13/2022 until 02/12/2023 End: 04-09-2023 Diagnostic mammography computer-aided detcj uni MIRZA DIAGNOSTIC RT Radiology Routine Follow-up examination of abnormal mammogram 1 Occurrences starting 03/10/2022 until 04/09/2023 [facility] Work Phone: Comment on above: 1 Occurrences starti ng 03/10/2022 until 04/09/2023 End: 02-15-2025 ECG 12 lead [facility] Service Area Work Phone: Comment on above: Once for 1 Occurrenc es starting 02/15/2025 until 02/15/2025 As needed until disc ontinued starting 02/15/2025 End: 02-15-2025 Extra Tubes [facility] Service Area Work Phone: Comment on above: Once (Lab) for 1 Occ urrences starting 02/15/2025 until 02/15/2025 Uribe Top Uribe Top Lab Rou kevin 02/15/2025 6:52 PM EDT [facility] Work Phone: End: 12-03-2023 MIRZA DIAGNOSTIC RIGHT MIRZA DIAGNOSTIC RIGHT Radiology Routine Follow-up examination of abnormal mammogram 1 Occurrences starting 11/03/2022 until 12/03/2023 [facility] Work Phone: Comment on above: 1 Occurrences starti ng 11/03/2022 until 12/03/2023 Measurement of respiratory function [facility] Patient referral [facility] Work Phone: Polysomnography [facility] End: 02-15-2025 Pulse oximetry, continuous Pulse oximetry, continuous Respiratory Care STAT Continuous until discontinued starting 02/15/2025 [facility] Work Phone: Comment on above: Continuous until dis continued starting 02/15/2025 End: 02-11-2024 Screening colonoscopy COLONOSCOPY SCREENING Endoscopy Routine Encounter for screening for malignant neoplasm of colon Family history of colonic polyps 1 Occurrences starting 02/10/2023 until 02/11/2024 [facility] Work Phone: Comment on above: 1 Occurrences starti ng 02/10/2023 until 02/11/2024 End: 02-08-2023 Screening mammography bi 2-view breast inc cad MIRZA SCREENING Radiology Routine Encounter for screening mammogram for breast cancer 1 Occurrences starting 01/09/2022 until 02/08/2023 [facility] Work Phone: Comment on above: 1 Occurrences starti ng 01/09/2022 until 02/08/2023 End: 11-02-2022 US BREAST LTD RT US BREAST LTD RT Radiology Routine Follow-up examination of abnormal mammogram 1 Occurrences starting 11/02/2022 until 11/02/2022 [facility] Work Phone: Comment on above: 1 Occurrences starti ng 11/02/2022 until 11/02/2022 End: 02-12-2023 Us breast uni real time with image complete US BREAST COMPLETE RT Radiology Routine Abnormal mammogram 1 Occurrences starting 01/13/2022 until 02/12/2023 [facility] Work Phone: Comment on above: 1 Occurrences starti ng 01/13/2022 until 02/12/2023 End: 04-09-2023 Us breast uni real time with image limited US BREAST LTD RT Radiology Routine Follow-up examination of abnormal mammogram 1 Occurrences starting 03/10/2022 until 04/09/2023 [facility] Work Phone: Comment on above: 1 Occurrences starti ng 03/10/2022 until 04/09/2023 Vitamin D, 1,25-dihy droxy measurement [facility] Work Phone: [facility] Payers Date Payer Category Payer Commercial Managed C are - HMO MMO SUPERMED [id number] 2023 Managed Care (Private) MEDICAL M [facility] SUPER MED [id number] 2023 Self-pay [id number] 2019 Unknown 2019 Unknown [id number] 2019 Unknown [id number] 2014 Unknown [employer] M [employer] [address] xxxxxxxxxxxx 2014-Present [phone] [address] [place] [address] xxxxxxxxxxxx [id number] 1960 Unknown [id number] .4 1960 Unknown [id number] .124 1960 Unknown [id number] .124 1960 Unknown [id number] .124 1960 Unknown [id number] .1244 1960 Unknown [id number] .1244 1960 Unknown [id number] .1241 1960 Unknown [id number] .1242 1960 Unknown [id number] .1243 Unknown [id number] [id number] .462 Unknown [id number] .462 Unknown [id number] .462 Unknown [id number] Social History Date Type Detail Facility Start: 06-08-2018 End: 01-11-2024 Tobacco smoking status NHIS Current every day smoker [place] Start: 05-20-1976 History of tobacco use Cigarette Smoker [place] Start: 06-08-2018 End: 01-11-2024 Cigarettes smoked current (pack per day) - Reported [facility] Start: 06-08-2018 End: 02-15-2025 Alcohol intake Current drinker of alcohol (finding) [employer] JOHANNA NASH Start: 05-20-2018 Tobacco Comment Will let know when ready [facility]lorene Koality JOHANNA Ronquillo Start: 1960 Sex Assigned At Not on file [employer] JOHANNA NASH Start: 08-21-2019 End: 01-11-2024 Tobacco use and exposure Never used [facility] Start: 03-13-2016 Alcohol Comment rarely [facility] Start: 06-20-2020 History SDOH Alcohol Frequency 3 [facility] Start: 06-20-2020 History SDOH Alcohol Std Drinks 1 [facility] Start: 1960 Sex Assigned At Female [facility] Start: 04-19-2021 End: 02-02-2024 Exposure to SARS-CoV-2 (event) Not sure [facility] Start: 01-13-2022 End: 02-23-2023 Tobacco smoking status MEIS Unknown if ever smoked [facility] Start: 1960 Sex Assigned At Male [facility] Start: 02-11-2022 End: 01-11-2024 Tobacco use panel [facility] Start: 02-09-2021 Gender identity Identifies as female gender (finding) [facility] How often to you hav e a drink containing alcohol? 2-4 times a month [facility] How many standard drinks containing alcohol do you have on a typical day? 1 or 2 [facility] How often do you hav e 6 or more drinks on 1 occasion? Never [facility] Start: 06-27-2022 PHQ2 Score 0 [facility] Start: 11-30-2024 Tobacco smoking status NHIS Ex-smoker [facility] Start: 05-20-1976 History of tobacco use Current smoker [facility] Start: 03-02-2022 Sex Female (finding) [facility] Start: 02-15-2025 Sexual orientation Heterosexual (finding) [facility] Work Phone: Medical Equipment Procedure Code Equipment Code Equipment Origin al Text Equipment Identifier Dates Dextile Left Anatomical Mesh Medium 9cm X 13cm [id number] Start: 06-24-2020 Mesh Parietene D s [id number] - [id number] Start: 06-24-2020 Functional Status Date Assessment Result Facility 02-15-2025 [place] [facility] s everity rating scale screener - recent [C-SSRS] [facility] Work Phone: Clinical Notes 12-17-2018 to 11-30-2024 Silvina Ponce RN - 11/30/2024 2:09 PM Mansi Ponce RN - 11/30/2024 2:09 PM Mansi Ponce RN - 11/30/2024 2:07 PM Mansi Ponce RN - 11/30/2024 2:02 PM EDTDischarge Instructions Note Date & Type Note Facility 11-30-2024 Emergency departm ent Note RN went over discharge instructions with the patient, Patient was able to reinstruct RN with discharge care. Patient denies any questions. Patient is A&Ox3 at time of discharge. Patient denied needing use of wheelchair to ED waiting room. RN directed patient towards exit upon being discharged, Patient had steady gait upon leaving unit. [facility] 11-30-2024 Emergency departm ent Note RN went over discharge instructions with the patient, Patient was able to reinstruct RN with discharge care. Patient denies any questions. Patient is A&Ox3 at time of discharge. Patient denied needing use of wheelchair to ED waiting room. RN directed patient towards exit upon being discharged, Patient had steady gait upon leaving unit. Pt educated to follow up with PCP in regards to blood pressure. Pt verbalizes understanding. DO Hannah made aware of patient blood pressure 173/75. Per DO Hannah patient is okay for discharge. EMERGENCY DEPARTMENT ENCOUNTER Pt Name: Juan Olsen Birthdate 1960 Date of evaluation: 11/30/2024 ED Provider: Yadira Merida DO CHIEF COMPLAINT Chief Complaint Patient presents with Abdominal Pain Pt presents to ED for lower abdominal pain. Pt reports pain increased 3 days ago. Pt reports nausea and bloating. Hx diverticulitis. HISTORY OF PRESENT ILLNESS (Location/Symptom, Timing/Onset, Context/Setting, Quality, Duration, Modifying Factors, Severity) Note limiting factors. I wore appropriate PPE for the entirety of this encounter. HPI Juan Olsen is a 64 y.o. who presents to the emergency department for abdominal pain. Patient endorsing right lower quadrant abdominal pain for 3 days increasing with nausea and bloating. Patient also endorsing diarrhea and thin stools. She endorses history of frequent diverticulitis status post colectomy that feels similar. She was just seen by her PCP about a month ago for diverticulitis however 3 days ago pain returned and feels worse. She denies any fevers vomiting hematochezia melena UTI symptoms. Abdominal surgical history includes hernia repairs total hysterectomy colectomy cholecystectomy. Nursing Notes were reviewed. Limitations to history: Outside historians: REVIEW OF SYSTEMS Review of Systems Pertinent positives and negatives as per HPI PAST MEDICAL HISTORY Past Medical History: Diagnosis Date Anxiety Diverticulitis of colon (without mention of hemorrhage)(562.11) Hypertension Hypothyroidism Sleep apnea Tobacco use disorder SURGICAL HISTORY Past Surgical History: Procedure Laterality Date CARPAL TUNNEL RELEASE SECTION (HISTORICAL) CHOLECYSTECTOMY COLECTOMY COLONOSCOPY 09/2011 HYSTERECTOMY TOTAL ABDOMINAL HYSTERECTOMY 08/02/2011 CURRENT MEDICATIONS Previous Medications No medications on file ALLERGIES Hydrocodone-acetaminophen, Duloxetine hcl, Prednisone, Cyclobenzaprine, and Penicillins FAMILY HISTORY Family History Problem Relation Name Age of Onset Stroke Mother Diabetes Father Thyroid disease Mother Diabetes Mother Stroke Father Thyroid disease Father SOCIAL HISTORY Social History Socioeconomic History Marital status: Tobacco Use Smoking status: Former Current packs/day: 1.00 Average packs/day: 1 pack/day for 48.5 years (48.5 ttl pk-yrs) Types: Cigarettes Start date: 05/20/1976 Smokeless tobacco: Never Tobacco comments: Quit smoking: Will let know when ready Substance and Sexual Activity Alcohol use: Yes Alcohol/week: 0.0 standard drinks of alcohol Drug use: No PHYSICAL EXAM ED Triage Vitals [11/30/24 1034] Temp Heart Rate Resp BP 36.7 C (98 F) 61 19 (!) 185/84 SpO2 Temp Source Heart Rate Source Patient Position 99 % Oral -- -- BP Location FiO2 (%) -- -- Physical Exam Vitals and nursing note reviewed. Constitutional: General: She is not in acute distress. Appearance: She is not toxic-appearing. HENT: Head: Normocephalic and atraumatic. Mouth/Throat: Pharynx: Oropharynx is clear. Eyes: General: No scleral icterus. Pupils: Pupils are equal, round, and reactive to light. Cardiovascular: Rate and Rhythm: Normal rate and regular rhythm. Pulmonary: Effort: Pulmonary effort is normal. No respiratory distress. Breath sounds: Normal breath sounds. Abdominal: General: Bowel sounds are normal. Palpations: Abdomen is soft. Tenderness: There is generalized abdominal tenderness and tenderness in the right lower quadrant. There is no right CVA tenderness or left CVA tenderness. Skin: General: Skin is warm and dry. Neurological: General: No focal deficit present. Mental Status: She is alert and oriented to person, place, and time. Psychiatric: Mood and Affect: Mood normal. Behavior: Behavior normal. DIAGNOSTIC RESULTS RADIOLOGY (Per Emergency Physician): Interpretation per the Radiologist below, if available at the time of this note: CT abdomen pelvis w contrast Final Result 1. No acute findings. 2. Hepatic steatosis. 3. Colonic diverticulosis. Report Dictated on Electronically Signed By: Rigoberto Mustafa MD Electronically Signed Date/Time: 11/30/2024 12:42 PM EDT LABS: Labs Reviewed CBC WITH AUTO DIFFERENTIAL - Abnormal Result Value Auto WBC 6.3 RBC 4.52 Hemoglobin 14.1 Hematocrit 38.7 MCV 85.6 MCH 31.2 MCHC 36.4 (*) RDW 12.7 Platelets 282 MPV 9.5 nRBC 0.0 Neutrophils Relative 65.3 Lymphocytes Relative 25.3 Monocytes Relative 5.1 Eosinophils Relative 2.8 Basophils Relative 1.3 Immature Grans % 0.2 Neutrophils Absolute 4.1 Lymphocytes Absolute 1.6 Monocytes Absolute 0.3 Eosinophils Absolute 0.2 Basophils Absolute 0.1 Immature Grans Absolute 0.0 COMPREHENSIVE METABOLIC PANEL - Abnormal SODIUM 140 POTASSIUM 3.8 CHLORIDE 109 (*) CARBON DIOXIDE 23 ANION GAP 8 UREA NITROGEN 17 CREATININE 0.80 GLUCOSE 104 CALCIUM 9.4 AST (SGOT) 25 ALT 34 (*) ALKALINE PHOSPHATASE 65 ALBUMIN 4.0 BILIRUBIN, TOTAL 0.8 TOTAL PROTEIN 7.0 eGFR 82.9 LIPASE - Normal LIPASE 22 All other labs were within normal range or not returned as of this dictation. EMERGENCY DEPARTMENT COURSE and DIFFERENTIAL DIAGNOSIS/MDM: Vitals: Vitals: 11/30/24 1034 11/30/24 1121 11/30/24 1338 BP: (!) 185/84 (!) 172/81 (!) 173/75 Pulse: 61 58 Resp: 19 17 Temp: 36.7 C (98 F) TempSrc: Oral SpO2: 99% 96% Weight: 78.9 kg (174 lb) Height: 1.549 m (5' 1) Medications morphine injection 4 mg (4 mg IntraVENous Given 11/30/24 1123) ondansetron (Zofran) injection 4 mg (4 mg IntraVENous Given 11/30/24 1122) iopamidol (Isovue-370) 76 % injection 75 mL (75 mL IntraVENous Given 11/30/24 1204) dicyclomine (Bentyl) capsule 10 mg (10 mg Oral Given 11/30/24 1336) 64-year-old female presented to the ED for abdominal pain due to the above. Exam as above. Differential diagnosis includes diverticulitis, perforation, appendicitis. Patient given medication for pain and nausea. Workup revealed CBC without leukocytosis leukopenia or anemia otherwise unremarkable lipase within normal range, CMP grossly markable without significant electrolyte or renal function derangement CT abdomen pelvis without acute findings has diverticulosis and hepatic steatosis no evidence of diverticulitis however patient endorsing feels the exact same as prior history of diverticulitis. Discussed options for treatment of clinical diverticulitis based on patient's history versus supportive care and outpatient follow-up. Patient opted for treatment. Bentyl for abdominal spasms. Patient stable for discharge with Bentyl and OTC medications for symptom control supportive care, antibiotics for suspected early diverticulitis, return precautions, outpatient follow-up. Patient and agree with plan. SCREENINGS PROCEDURES: Unless otherwise noted below, none Procedures CRITICAL CARE TIME FINAL IMPRESSION 1. Lower abdominal pain DISPOSITION Discharge 11/30/2024 01:33:05 PM PAT[facility] [address] [facility] [facility] [id number] [facility] MEDICATIONS: New Prescriptions CIPROFLOXACIN (CIPRO) 500 MG TABLET Take 1 tablet (500 mg) by mouth 2 times daily for 10 days. DICYCLOMINE (BENTYL) 20 MG TABLET Take 1 tablet (20 mg) by mouth 2 times daily for 10 days. METRONIDAZOLE (FLAGYL) 500 MG TABLET Take 1 tablet (500 mg) by mouth 2 times daily for 10 days. (Comment: Please note this report has been produced using speech recognition software and may contain errors related to that system including errors in grammar, punctuation, and spelling, as well as words and phrases that may be inappropriate. If there are any questions or concerns please feel free to contact the dictating provider for clarification.) Yadira Merida DO (electronically signed) Emergency Medicine Provider Yadira Merida DO 11/30/24 3247 documented in this encounter [facility] 11-30-2024 Emergency departm ent Note Pt educated to follow up with PCP in regards to blood pressure. Pt verbalizes understanding. [facility] 11-30-2024 Emergency departm ent Note DO Hannah made aware of patient blood pressure 173/75. Per DO Hannah patient is okay for discharge. [facility] 11-30-2024 Hospital Discharg e instructions Yadira Merida DO - 11/30/2024 1:39 PM EDT Take antibiotics as prescribed. Bentyl and lygr-lke-riizbni medication as needed for pain. Stay well-hydrated. Return for new or concerning symptoms. Follow-up with PCP for further issues. The following attachments cannot be sent through Care Everywhere.Abdominal Pain, Adult ED (Honduran)Diverticulitis Discharge Instructions (Honduran)documented in this encounter [facility] 11-30-2024 Physician Emergen cy department Note EMERGENCY DEPARTMENT ENCOUNTER Pt Name: Juan Olsen Birthdate 1960 Date of evaluation: 11/30/2024 ED Provider: Yadira Merida DO CHIEF COMPLAINT Chief Complaint Patient presents with Abdominal Pain Pt presents to ED for lower abdominal pain. Pt reports pain increased 3 days ago. Pt reports nausea and bloating. Hx diverticulitis. HISTORY OF PRESENT ILLNESS (Location/Symptom, Timing/Onset, Context/Setting, Quality, Duration, Modifying Factors, Severity) Note limiting factors. I wore appropriate PPE for the entirety of this encounter. HPI Juan Olsen is a 64 y.o. who presents to the emergency department for abdominal pain. Patient endorsing right lower quadrant abdominal pain for 3 days increasing with nausea and bloating. Patient also endorsing diarrhea and thin stools. She endorses history of frequent diverticulitis status post colectomy that feels similar. She was just seen by her PCP about a month ago for diverticulitis however 3 days ago pain returned and feels worse. She denies any fevers vomiting hematochezia melena UTI symptoms. Abdominal surgical history includes hernia repairs total hysterectomy colectomy cholecystectomy. Nursing Notes were reviewed. Limitations to history: Outside historians: REVIEW OF SYSTEMS Review of Systems Pertinent positives and negatives as per HPI PAST MEDICAL HISTORY Past Medical History: Diagnosis Date Anxiety Diverticulitis of colon (without mention of hemorrhage)(562.11) Hypertension Hypothyroidism Sleep apnea Tobacco use disorder SURGICAL HISTORY Past Surgical History: Procedure Laterality Date CARPAL TUNNEL RELEASE SECTION (HISTORICAL) CHOLECYSTECTOMY COLECTOMY COLONOSCOPY 09/2011 HYSTERECTOMY TOTAL ABDOMINAL HYSTERECTOMY 08/02/2011 CURRENT MEDICATIONS Previous Medications No medications on file ALLERGIES Hydrocodone-acetaminophen, Duloxetine hcl, Prednisone, Cyclobenzaprine, and Penicillins FAMILY HISTORY Family History Problem Relation Name Age of Onset Stroke Mother Diabetes Father Thyroid disease Mother Diabetes Mother Stroke Father Thyroid disease Father SOCIAL HISTORY Social History Socioeconomic History Marital status: Tobacco Use Smoking status: Former Current packs/day: 1.00 Average packs/day: 1 pack/day for 48.5 years (48.5 ttl pk-yrs) Types: Cigarettes Start date: 05/20/1976 Smokeless tobacco: Never Tobacco comments: Quit smoking: Will let know when ready Substance and Sexual Activity Alcohol use: Yes Alcohol/week: 0.0 standard drinks of alcohol Drug use: No PHYSICAL EXAM ED Triage Vitals [11/30/24 1034] Temp Heart Rate Resp BP 36.7 C (98 F) 61 19 (!) 185/84 SpO2 Temp Source Heart Rate Source Patient Position 99 % Oral -- -- BP Location FiO2 (%) -- -- Physical Exam Vitals and nursing note reviewed. Constitutional: General: She is not in acute distress. Appearance: She is not toxic-appearing. HENT: Head: Normocephalic and atraumatic. Mouth/Throat: Pharynx: Oropharynx is clear. Eyes: General: No scleral icterus. Pupils: Pupils are equal, round, and reactive to light. Cardiovascular: Rate and Rhythm: Normal rate and regular rhythm. Pulmonary: Effort: Pulmonary effort is normal. No respiratory distress. Breath sounds: Normal breath sounds. Abdominal: General: Bowel sounds are normal. Palpations: Abdomen is soft. Tenderness: There is generalized abdominal tenderness and tenderness in the right lower quadrant. There is no right CVA tenderness or left CVA tenderness. Skin: General: Skin is warm and dry. Neurological: General: No focal deficit present. Mental Status: She is alert and oriented to person, place, and time. Psychiatric: Mood and Affect: Mood normal. Behavior: Behavior normal. DIAGNOSTIC RESULTS RADIOLOGY (Per Emergency Physician): Interpretation per the Radiologist below, if available at the time of this note: CT abdomen pelvis w contrast Final Result 1. No acute findings. 2. Hepatic steatosis. 3. Colonic diverticulosis. Report Dictated on Electronically Signed By: Rigoberto Mustafa MD Electronically Signed Date/Time: 11/30/2024 12:42 PM EDT LABS: Labs Reviewed CBC WITH AUTO DIFFERENTIAL - Abnormal Result Value Auto WBC 6.3 RBC 4.52 Hemoglobin 14.1 Hematocrit 38.7 MCV 85.6 MCH 31.2 MCHC 36.4 (*) RDW 12.7 Platelets 282 MPV 9.5 nRBC 0.0 Neutrophils Relative 65.3 Lymphocytes Relative 25.3 Monocytes Relative 5.1 Eosinophils Relative 2.8 Basophils Relative 1.3 Immature Grans % 0.2 Neutrophils Absolute 4.1 Lymphocytes Absolute 1.6 Monocytes Absolute 0.3 Eosinophils Absolute 0.2 Basophils Absolute 0.1 Immature Grans Absolute 0.0 COMPREHENSIVE METABOLIC PANEL - Abnormal SODIUM 140 POTASSIUM 3.8 CHLORIDE 109 (*) CARBON DIOXIDE 23 ANION GAP 8 UREA NITROGEN 17 CREATININE 0.80 GLUCOSE 104 CALCIUM 9.4 AST (SGOT) 25 ALT 34 (*) ALKALINE PHOSPHATASE 65 ALBUMIN 4.0 BILIRUBIN, TOTAL 0.8 TOTAL PROTEIN 7.0 eGFR 82.9 LIPASE - Normal LIPASE 22 All other labs were within normal range or not returned as of this dictation. EMERGENCY DEPARTMENT COURSE and DIFFERENTIAL DIAGNOSIS/MDM: Vitals: Vitals: 11/30/24 1034 11/30/24 1121 11/30/24 1338 BP: (!) 185/84 (!) 172/81 (!) 173/75 Pulse: 61 58 Resp: 19 17 Temp: 36.7 C (98 F) TempSrc: Oral SpO2: 99% 96% Weight: 78.9 kg (174 lb) Height: 1.549 m (5' 1) Medications morphine injection 4 mg (4 mg IntraVENous Given 11/30/24 1123) ondansetron (Zofran) injection 4 mg (4 mg IntraVENous Given 11/30/24 1122) iopamidol (Isovue-370) 76 % injection 75 mL (75 mL IntraVENous Given 11/30/24 1204) dicyclomine (Bentyl) capsule 10 mg (10 mg Oral Given 11/30/24 1336) 64-year-old female presented to the ED for abdominal pain due to the above. Exam as above. Differential diagnosis includes diverticulitis, perforation, appendicitis. Patient given medication for pain and nausea. Workup revealed CBC without leukocytosis leukopenia or anemia otherwise unremarkable lipase within normal range, CMP grossly markable without significant electrolyte or renal function derangement CT abdomen pelvis without acute findings has diverticulosis and hepatic steatosis no evidence of diverticulitis however patient endorsing feels the exact same as prior history of diverticulitis. Discussed options for treatment of clinical diverticulitis based on patient's history versus supportive care and outpatient follow-up. Patient opted for treatment. Bentyl for abdominal spasms. Patient stable for discharge with Bentyl and OTC medications for symptom control supportive care, antibiotics for suspected early diverticulitis, return precautions, outpatient follow-up. Patient and agree with plan. SCREENINGS PROCEDURES: Unless otherwise noted below, none Procedures CRITICAL CARE TIME FINAL IMPRESSION 1. Lower abdominal pain DISPOSITION Discharge 11/30/2024 01:33:05 PM PATIENT REFERRED TO: Glendy Anderson [address] [facility] [address] DISCHARGE MEDICATIONS: New Prescriptions CIPROFLOXACIN (CIPRO) 500 MG TABLET Take 1 tablet (500 mg) by mouth 2 times daily for 10 days. DICYCLOMINE (BENTYL) 20 MG TABLET Take 1 tablet (20 mg) by mouth 2 times daily for 10 days. METRONIDAZOLE (FLAGYL) 500 MG TABLET Take 1 tablet (500 mg) by mouth 2 times daily for 10 days. (Comment: Please note this report has been produced using speech recognition software and may contain errors related to that system including errors in grammar, punctuation, and spelling, as well as words and phrases that may be inappropriate. If there are any questions or concerns please feel free to contact the dictating provider for clarification.) Yadira Merida DO (electronically signed) Emergency Medicine Provider Yadira Merida DO 11/30/24 [id number] [facility] 10-11-2024 Evaluation note Diagnosis Onset Date Resolution Bilateral hearing loss due to cerumen impaction acute September 302024 3:47pm Bronchitis acute October 11 3:47pm Maxillary sinusitis, acute acute October 11, 2024 3:47pm Constipation acute January 09, 3:09pm Diverticulitis large intestine acute January 09, 2025 3:09pm Lower abdominal pain acute January 09, 2025 3:09pm Rectal pain acute January 09 3:09pm Diverticulitis large intestine acute February 01, 2025 4:49pm Hyperglycemia due to type 2 diabetes mellitus acute January 4:49pm Lower abdominal pain acute February 01, 2025 4:49pm [facility] Work Phone: 1(852) 737-900806-11-2024 History of Present illness Narrative* Cheli Wright MD - 01/11/2024 10:00 AM EDT Subjective Patient ID: Juan Olsen is a 64 y.o. 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 Check for ADHD.). HPI Patient presents today new to . She wants an evaluation for ADHD. She feels that she has had thisissue longstanding and it has been going on for about 25 years according to her since he isin order and probably much longer than that. Patient states that she has coped with it throughout her lifetime and she has been dealing with increased stressors at work with increase symptoms of focus problems this causing her issues. Patient is a hypertensive she also has diabetes and hypothyroidism. We had a discussion about the utility at 64 years of age of instituting ADHD meds and she is aware that I advise against this. She would like to do the evaluation and I recommended that she seek coping mechanisms rather than medications for this treatment. She has been seeing a nurse practitioner at a freestanding clinic and wants to continue to do so. She refills her levothyroxine lisinopril and metformin. She is otherwise been feeling well. She denies chest pains headaches dizziness lightheadedness or shortness of breath. She has no lower extremity edema. She is at the blood pressure today in the office is about average for her. Patient does report insomnia this been going on for many years she states she sleeps very poorly she is likely to get about 4 hours of sleep at night she is very tired in the daytime and we had a long discussion about the fact that this may contribute to her issues with concentration and focus. She has a history of sleep apnea she has a CPAP machine. She states that about a year ago 1 doctor told her she had sleep apnea but the other doctor told her shehad very mild symptoms did not really need the machine. The patient opted to continue to use the machine and she has been using it consistently however she still not sleeping well Review of Systems Review of systems was performed and is otherwise negative except as noted in HPI. Objective BP 126/88 Pulse 73 Temp 36.8 C (98.2 F) (Oral) Ht 1.549 m (5' 1) Wt 78 kg (172 lb) SpO2 98% BMI 32.50 kg/m Physical Exam HEENT is normal Lungs clear bilaterally Heart is regular rate rhythm no murmurs Abdomen benign Lower extremities no edema Assessment/Plan Diagnoses and all orders for this visit: Screening mammogram for breast cancer - BI mammo bilateral diagnostic; Future - BI US breast complete right; Future Abnormal mammogram - BI mammo bilateral diagnostic; Future - BI US breast complete right; Future Obstructive sleep apnea syndrome - Referral to Adult Sleep Medicine; Future Routine general medical examination at a health care facility - CBC and Auto Differential; Future - Comprehensive Metabolic Panel; Future - Lipid Panel; Future - TSH with reflex to Free T4 if abnormal; Future Type 2 diabetes mellitus without complication, without long-term current use of insulin (Multi) - Hemoglobin A1C; Future Call with issues I reviewed her chart she is due for a diagnostic mammogram that was ordered She needs to see sleep medicine as her sleep apnea is not under good control Blood work is ordered I have given her a list of referral sources for ADHD evaluation. At the end of the visit she was discussing her health care and told me that she is continuing to see her nurse practitioner I told herthat she needs to pick a provider that it does not matter who she sees as long as she is just seeing a singular provider so that her medications do not get confused. She is aware and plans to continue to see her provider in [place] She will get her evaluation testing done we will call with results she will let me know if she needs anything else Cheli Wright MD [facility] Work Phone: [phone]) 257-935311-09-2023 Miscellaneous Notes* Telephone Encounter - Emma Mc RN - 06/10/2023 4:32 PM EST Patient's Mikhail Olsen is having colonoscopy tomorrow. * Telephone Encounter - Ayaz French - 06/10/2023 2:12 PM EST Yes I do think it was open access. * Telephone Encounter - Britt Church PA-C - 06/10/2023 12:21 PM EST Not that I am aware. Was this open access? * Telephone Encounter - Ayaz French - 06/10/2023 11:08 AM EST Patient called and was inquiring about if he needs PAT testing ? His colonoscopy is tomorrow. documented in this encounterM[facility]07-12-2023 Instructions* Patient Instructions* Anisha Ayaz - 02/10/2023 1:15 PM EDT Images from the original note were not included. Bowel Preparation Instructions for: Miralax-Gatorade Preparations IF YOU DO NOT FOLLOW THESE DIRECTIONS, YOUR COLONOSCOPY WILL BE CANCELLED. Haq Instructions: Your bowel must be empty so that your doctor can clearly view your colon. Follow all of the instructions in this handout EXACTLY as they are written. Do NOT eat any solid food the ENTIRE day before your colonoscopy. Buy your bowel preparation at least 5 days before your colonoscopy. Four (4) Dulcolax laxative tablets containing 5mg of bisacodyl each (NOT Dulcolax stool softener) One (1) 8.3oz. bottle Miralax (238 grams) or generic equivalent 2 x 32oz. Bottles of Gatorade (NOT RED) Diabetic Patients: Use G2 (Gatorade 2) TRANSPORTATION on the Day of Your Exam A responsible adult MUST be present with you at Check In prior to your colonoscopy and REMAIN in the endoscopy area until you are discharged. You are NOT ALLOWED to drive, take a taxi or bus, or leave the Endoscopy Center ALONE. If you do not have a responsible flatbed company driver (family member or friend) withyou to take you home, your exam cannot be done with sedation and will be cancelled. Please bring a list of all of your current medications, including any Ceft-inw-Yuaqkbx medications with you. Medications If you take insulin, diabetic medications or blood thinners such as Coumadin (warfarin), Plavix (clopidogrel), Ticlid (ticlopidine hydrochloride), Agrylin (anagrelide), Xarelto (Rivaroxaban), Pradaxa(Dabigatran), Eliquis (Apixaban), and Effient (Prasugrel). You MUST call the doctors who orders those medicines for instructions on altering the dosage before your colonoscopy. All other medications should be taken the day of the exam with a sip of water including ASPIRIN. Five (5) Days Before Your Colonoscopy Do NOT take medicines that stop diarrhea - such as Imodium, Kaopectate, or Pepto Bismol. Do NOT take fiber supplements - such as Metamucil, Citrucel, or Perdiem. Do NOT take products that contain iron - such as multi-vitamins (the label lists what is in the products). Three (3) Days Before Your Colonoscopy Do NOT eat high-fiber foods - such as popcorn, beans, seeds (flax, sunflower, quinoa), multigrain bread, nuts, salad/vegetables, or fresh and dried fruit. 1 Bowel Preparation Instructions for: Miralax-Gatorade Preparations One (1) Day Before Your Colonoscopy Only drink clear liquids the ENTIRE DAY before your colonoscopy. Do NOT eat any solid foods. Drink at least 8 ounces of clear liquids every hour after waking up. The clear liquids you can drink include: Clear Liquid (NO RED LIQUIDS) DO NOT DRINK Gatorade, Pedialyte or Powerade Clear broth or bouillon Coffee or tea (no milk or non-dairy creamer) Carbonated and non-carbonated soft drinks Gareth-Aid or other fruit flavored drinks Strained fruit juices (no pulp) Jell-O, popsicles, hard candy Water Alcohol Milk or non-dairy creamers Noodles or vegetables in soup Juice with pulp Liquid you cannot see through Do not use tobacco/vaping products Mix 1/2 of Miralax bottle (119 grams) in each 32 ounces of Gatorade bottle until dissolved. Keep cool in the refrigerator. DO NOT ADD ICE. The bowel preparation solution will be consumed in two parts. Part 1 5:00 PM - Evening before your colonoscopy Take 4 Dulcolax tablets. 6 PM - Evening before your colonoscopy Drink 32 oz. of the mixed solution. Drink an 8 oz. glass of bowel preparation every 15 minutes for a total of 4 glasses. Fifteen (15) minutes later, drink an 8 oz. glass of of clear liquids every 15 minutes for a total of 2 glasses. You may continue to drink clear liquids till midnight. Part 2 On the day of your colonoscopy you may drink clear liquids up to (three) 3 hours prior to procedure. 4 1/2 hours before your colonoscopy Take another 32 oz. bottle of mixed solution. Drink an 8 oz. glass of bowel prep every 15 minutes for a total of 4 glasses. Fifteen (15) minutes later, drink an 8 oz. glass of clear liquids every 15 minutes for a total of 2glasses. You may continue to drink clear liquids up to (three) 3 hours before your exam. 2 07/2019 documented in this encounterM[facility]04-19-2023 Procedure [facility]04-05-2023 Miscellaneous Notes* Telephone Encounter - Kee Abbott RN - 11/04/2022 1:13 PM EDT Aware of results and recommendations and enc to call in January to get sched for f/u mirza in Apr. Kee Abbott RN Follow up mammo in 6 months IMPRESSION: PROBABLY BENIGN - SHORT TERM INTERVAL FOLLOW-UP RECOMMENDED The focal asymmetry in the right breast most likely is fibrocystic change and is probably benign. A follow-up in 6 months is recommended. This is not seen on 2013 - 2017 mammograms, however is likely present on more distant scanned screen film mammograms from 2002, 2003, and 2009. It was likely not present on more recent interval exams due to the far posterior / medial location and was not included. A follow-up mammogram in 6 months is recommended to demonstrate stability documented in this encounterMari[facility]04-03-2023 NoteHNO ID: [id number] Author: SILVINO Garrison Service: Radiology Author Type: Technologist Type: Progress Notes Filed: 11/02/2022 8:17 AM Note Text: Radiology Service Progress Note PATIENT NAME: Juan Olsen DATE OF SERVICE: November 02, 2022 TIME: 8:17 AM PATIENT IDENTITY VERIFICATION COMPLETED USING TWO (2) IDENTIFIERS: Name and Date of confirmed by patient verbally. FALL SCREENING: Has the patient had 2 falls in the last year or 1 fall with injury or currently using an Ambulatory Assistive Device (Walker, Cane, Wheelchair, Crutches, etc.)? No PATIENT GENDER DATA: Female. status: : No status: NO. PATIENT RELEVANT IMPLANT DATA REVIEWED: Not Applicable RADIOLOGY DEPARTMENT: Mammography PERIPHERAL IV DATA: Not applicable SIGNED BY: SILVINO Garrison November 02, 2022 8:17 [facility]MSy[facility] [id number] History of Present illness Narrative* SILVINO Garrison - 11/02/2022 8:00 AM EDT Radiology Service Progress Note PATIENT NAME: Juan Olsen DATE OF SERVICE: November 02, 2022 TIME: 8:17 AM PATIENT IDENTITY VERIFICATION COMPLETED USING TWO (2) IDENTIFIERS: Name and Date of confirmedby patient verbally. FALL SCREENING: Has the patient had 2 falls in the last year or 1 fall with injury or currently using an Ambulatory Assistive Device (Walker, Cane, Wheelchair, Crutches, etc.)? No PATIENT GENDER DATA: Female. status: : No status: NO. PATIENT RELEVANT IMPLANT DATA REVIEWED: Not Applicable RADIOLOGY DEPARTMENT: Mammography PERIPHERAL IV DATA: Not applicable SIGNED BY: SILVINO Garrison November 02, 2022 8:17 AM documented in this encounterMarietta [facility]08-09-2022 Miscellaneous Notes* Addendum Note - Darline Barnhart MD - 03/10/2022 10:02 AM EDTAddended by: DARLINE BARNHART on: 03/10/2022 10:02 AM Modules accepted: Orders * Addendum Note - Aissatou Turner LPN - 03/10/2022 9:49 AM EDTAddended by: AISSATOU TURNER on: 03/10/2022 09:49 AM Modules accepted: Orders * Telephone Encounter - Aissatou Turner LPN - 03/10/2022 9:25 AM EDT Patient returning missed call. Reviewed results and recommendations. Aissatou Turner LPN * Telephone Encounter - Aissatou Turner LPN - 03/10/2022 9:19 AM EDT Images from the original note were not included. LVMTCO. IMPRESSION: PROBABLY BENIGN - SHORT TERM INTERVAL FOLLOW-UP RECOMMENDED The 2.2 cm x 1.8 cm x 0.6 cm area in the right breast at 1 o'clock posterior depth resembles fibroglandular tissue and is probably benign. This is likely present on the more distant mammograms (2009, 2003, and 2002) and is not significantly changed, allowing for differences in technique (prior films are scanned film screen images). The 0.5 cm x 0.4 cm x 0.3 cm lobulated mass in the right breast at 3 o'clock is consistent with clustered cysts and is benign. This is stable mammographically since at least 2017 and likely 2015 and therefore may be considered benign. A follow-up mammogram in 6 months is recommended to demonstrate stability. Darline Barnhart MD 03/03/2022 8:07 AM EDT Diagnostic mammogram in 6 months Aissatou Turner LPN documented in this encounterMarietta [facility]08-01-2022 History of Present illness Narrative* SILVINO Garrison - 03/02/2022 10:40 AM EDT Radiology Service Progress Note PATIENT NAME: Juan Olsen DATE OF SERVICE: March 02, 2022 TIME: 10:48 AM PATIENT IDENTITY VERIFICATION COMPLETED USING TWO (2) IDENTIFIERS: Name and Date of confirmedby patient verbally. FALL SCREENING: Has the patient had 2 falls in the last year or 1 fall with injury or currently using an Ambulatory Assistive Device (Walker, Cane, Wheelchair, Crutches, etc.)? No PATIENT GENDER DATA: Female. status: : No status: NO. PATIENT RELEVANT IMPLANT DATA REVIEWED: Not Applicable RADIOLOGY DEPARTMENT: Mammography PERIPHERAL IV DATA: Not applicable SIGNED BY: SILVINO Garrison March 02, 2022 10:48 AM documented in this encounterMarietta [facility]07-13-2022 History of Present illness Narrative* Gena Menendez MD - 02/11/2022 2:55 PM EDT PROGRESS NOTES PATIENT NAME: Juna Olsen Assessment ASSESSMENT AND PLAN The patient is a 62-year-old female with abdominal pain. She had a recent hospitalization a few weeks ago for small bowel diverticulitis. I recommended a CT scan to further evaluate her pain. Follow-up will be based on the CT scan results. SUBJECTIVE CHIEF COMPLAINT: Patient presents with: Follow Up: abdominal pain RLQ w/ sharp / spasm INTERVAL HISTORY OF PRESENT ILLNESS: The patient is a 62-year-old female who is status post a recent hospitalization for abdominal pain likely secondary to small bowel diverticulitis. She states thather pain seems to have recurred however this time it is more the right lower quadrant. She describes the pain as sharp. She denies any fevers or chills. She is being seen today to discuss treatment options. HISTORIES: PAST MEDICAL HISTORY Diagnosis Date Blood transfusion abn reaction or complication, no procedure mishap from diverticulitis Diverticulitis of both large and small intestine Diverticulitis of small intestine without perforation or abscess without bleeding 01/17/2022 Endometriosis Hemorrhoids Hypertension Hypothyroid Menopause Thyroid disorder PAST SURGICAL HISTORY Procedure Laterality Date SECTION HX x3 CHOLECYSTECTOMY HX 2008 ELBOW SURGERY HX 12/08/2017 INGUINAL HERNIA REPAIR HX Left 06/24/2020 PAST SURGICAL HISTORY OF 2012 Bowel removal- colon resection for diverticulitis REPAIR INCISIONAL HERNIA,REDUCIBLE N/A 06/24/2020 STRESS ECHO EXERCISE 02/12/2016 TOTAL ABDOMINAL HYSTERECT W/WO RMVL TUBE OVARY 2004 ALLERGIES: Hydrocodone-Acetaminophen, Penicillins, and Tomatoes MEDICATIONS: Current Outpatient Medications Medication Sig iv contrast (will be provided with radiology test) CT ABD/PEL -Inject, intravenously, once for 1 dose.No IV access, insert saline lock prior to the beginning of sedation, infusion, injection of imaging exam. Discontinue saline lock post exam. If Pt. has a central line or IVAD, may access for administration according to line specific nursing protocol. Once exam is complete flush line and de-accessaccording to line specific nursing protocol in the CT contrast administration guidelines link. enteric contrast (will be provided with radiology test) For CT ABD/PEL W IVCON Routine order Administer, As Directed One Time Only, via Oral, Rectal, both Oral and Rectal, Enteric Tube, Stoma or Indwelling Catheter, Enteric Contrast as designated per enteric contrast guidelines ethinyl estradiol, testosterone (CPD) Comments for compounding pharmacy: TRIESTROGEN 5 MG/TESTOSTERONE 1.5 MG CAPSULES cetirizine HCl (CETIRIZINE ORAL) Take 10 mg by mouth once daily. MULTI-VITAMIN ORAL Take by mouth. aspirin, enteric coated (ASPIRIN LOW DOSE) 81 mg EC tablet Take 81 mg by mouth once daily. lisinopril-hydrochlorothiazide (PRINZIDE, ZESTORETIC) 20-25 mg per tablet Take 0.5 tablets by mouthonce daily. (Patient taking differently: Take 1 tablet by mouth once daily. ) levothyroxine (SYNTHROID) 137 mcg tablet Take 137 mcg by mouth once daily. No current facility-administered medications for this visit. FAMILY HISTORY Problem Relation Age of Onset Diabetes Mother Breast Cancer Mother Ovarian cancer Mother Heart Mother Thyroid Mother Diabetes Father Colon Cancer Father Heart Father Thyroid Father Stroke Sister No Known Problems Sister No Known Problems Sister No Known Problems Sister No Known Problems Sister Heart disease Brother Heart disease Brother No Known Problems Brother No Known Problems Brother No Known Problems Brother No Known Problems Brother No Known Problems Brother No Known Problems Brother No Known Problems Brother Social History Tobacco Use Smoking status: Current Every Day Smoker Packs/day: 1.00 Years: 40.00 Pack years: 40.00 Types: Cigarettes Smokeless tobacco: Never Used Vaping Use Vaping Use: Never used Substance Use Topics Alcohol use: Yes Alcohol/week: 1.0 - 2.0 standard drink Types: 1 - 2 Glasses of Wine (5oz) per week Drug use: No OBJECTIVE PHYSICAL EXAM: BP 140/90 Pulse 70 Ht 5' 1 (1.55m) Wt 170 lb (77.1kg) BMI 32.14 kg/(m^2). GENERAL: Alert, no distress, cooperative ABDOMEN: Mild diffuse tenderness to palpation. Most of her pain seems to be in the left upper quadrant. DATA: Diagnostic tests reviewed for today's visit: No new labs Gena Menendez MD documented in this encounterM[facility]07-03-2022 Evaluation note* Diagnosis Onset Date Resolution Status Bronchitis acute Left otitis media acute Maxillary sinusitis, acute a cute Smoker within last 12 months acute Obstructive Sleep Apnea-Hypopnea Syndrome noneactive Bronchitis acute Maxillary sinusitis, acute a cute Menopausal flushing acute Hypothyroidism (acquired) ac [place] Right acute otitis media acu te Vertigo acute Hypertension [facility] Work Phone: 1([phone]) 425-403506-29-2022 History of Present illness Narrative* Gena Menendez MD - 01/28/2022 12:14 PM EDT PROGRESS NOTES PATIENT NAME: Juan Olsen Assessment ASSESSMENT AND PLAN The patient is a 62-year-old female with a history of previous small bowel of diverticulitis and resultant surgery. She was recently hospitalized for another bout of small bowel diverticulitis. She seems to be improving nicely with antibiotics. I recommended follow-up as needed. If she has any problems questions or concerns she can contact us. SUBJECTIVE CHIEF COMPLAINT: Patient presents with: ED Follow-up: for acute diverticulitis 01/15. Is much better, but still feels like something is not right. Has bowel movements every day but it is not normal. INTERVAL HISTORY OF PRESENT ILLNESS: The patient is a 62-year-old female who was recently hospitalized for small bowel diverticulitis. She follows up today to reevaluate her progress. She states she is doing overall much better. She states that she is having some minimal pain but this seems to be gradually improving each day. No fevers or chills. HISTORIES: PAST MEDICAL HISTORY Diagnosis Date Blood transfusion abn reaction or complication, no procedure mishap from diverticulitis Diverticulitis of both large and small intestine Diverticulitis of small intestine without perforation or abscess without bleeding 01/17/2022 Endometriosis Hemorrhoids Hypertension Hypothyroid Menopause Thyroid disorder PAST SURGICAL HISTORY Procedure Laterality Date SECTION HX x3 CHOLECYSTECTOMY HX 2008 ELBOW SURGERY HX 12/08/2017 INGUINAL HERNIA REPAIR HX Left 06/24/2020 PAST SURGICAL HISTORY OF 2012 Bowel removal- colon resection for diverticulitis REPAIR INCISIONAL HERNIA,REDUCIBLE N/A 06/24/2020 STRESS ECHO EXERCISE 02/12/2016 TOTAL ABDOMINAL HYSTERECT W/WO RMVL TUBE OVARY 2004 ALLERGIES: Hydrocodone-Acetaminophen, Penicillins, and Tomatoes MEDICATIONS: Current Outpatient Medications Medication Sig ethinyl estradiol, testosterone (CPD) Comments for compounding pharmacy: TRIESTROGEN 5 MG/TESTOSTERONE 1.5 MG CAPSULES cetirizine HCl (CETIRIZINE ORAL) Take 10 mg by mouth once daily. MULTI-VITAMIN ORAL Take by mouth. aspirin, enteric coated (ASPIRIN LOW DOSE) 81 mg EC tablet Take 81 mg by mouth once daily. lisinopril-hydrochlorothiazide (PRINZIDE, ZESTORETIC) 20-25 mg per tablet Take 0.5 tablets by mouthonce daily. (Patient taking differently: Take 1 tablet by mouth once daily. ) levothyroxine (SYNTHROID) 137 mcg tablet Take 137 mcg by mouth once daily. No current facility-administered medications for this visit. FAMILY HISTORY Problem Relation Age of Onset Diabetes Mother Breast Cancer Mother Ovarian cancer Mother Heart Mother Thyroid Mother Diabetes Father Colon Cancer Father Heart Father Thyroid Father Stroke Sister Heart disease Brother No Known Problems Sister No Known Problems Sister No Known Problems Sister No Known Problems Sister Heart disease Brother No Known Problems Brother No Known Problems Brother No Known Problems Brother No Known Problems Brother No Known Problems Brother No Known Problems Brother No Known Problems Brother Social History Tobacco Use Smoking status: Current Every Day Smoker Packs/day: 1.00 Years: 40.00 Pack years: 40.00 Types: Cigarettes Smokeless tobacco: Never Used Vaping Use Vaping Use: Never used Substance Use Topics Alcohol use: Yes Alcohol/week: 1.0 - 2.0 standard drink Types: 1 - 2 Glasses of Wine (5oz) per week Drug use: No OBJECTIVE PHYSICAL EXAM: BP 158/74 Pulse 85 Ht 5' 1 (1.55m) Wt 172 lb 4.8 oz (78.2kg) SpO2 100% BMI 32.57 kg/(m^2). GENERAL: Alert, no distress, cooperative ABDOMEN: Minimal diffuse tenderness to palpation. No rebound or guarding. DATA: Diagnostic tests reviewed for today's visit: Most recent labs and imaging results. Gena Menendez MD documented in this encounterMarietta [facility]06-15-2022 Miscellaneous Notes* Telephone Encounter - Aissatou Turner LPN - 01/14/2022 11:56 AM EDT Patient notified of results/ recommendations. Patient transferred to central scheduling. IMPRESSION: INCOMPLETE: NEEDS ADDITIONAL IMAGING EVALUATION The focal asymmetry in the right breast upper inner aspect is indeterminate. Additional views are recommended. The asymmetry in the right breast inner region seen on the craniocaudal view only is indeterminate. Additional views are recommended. Aissatou Turner LPN documented in this encounterMarietta [facility] Hospital06-14-2022 Miscellaneous Notes* Letter - Mammography Coordinator - 01/13/2022 12:52 PM EDT January 13, 2022 PID: [id number] Juan Olsen [address] [place] [address] Dear Ms. Olsen, Your recent breast imaging exam on 01/13/2022 showed a possible finding that requires additional imaging studies for a complete evaluation. Most such findings are probably benign (not cancer). If you have a healthcare provider who ordered/prescribed your screening mammogram: Please call to schedule an appointment for your additional imaging (if you have not already done so).Additional Imaging cannot be self scheduled in [place]. If you DO NOT have a healthcare provider (ie you did not have an order/prescription for your screening mammogram): Please call to schedule an appointment for your additional imaging (if you have not already done so). Additonal Imaging cannot be self scheduled in [place]. This exam cannot be self scheduled in [employer]. You must have an order/prescription f rom your physician when calling to schedule your appointment. If your order/prescription is not electronic, you must bring the hard copy with you on the day of your exam Your imaging studies and reports are kept on file at [facility] as part of your permanent medical record, and are available for your continuing care. Thank you for allowing us to help in meeting your health care needs. Sincerely, Dr. Dominguez Interpreting Radiologist [facility] (Additional imaging) documented in this encounterMarietta [facility]06-10-[facility]22 NoteHNO ID: [id number] Author: Darline Barnhart MD Service: ? Author Type: Physician Type: Progress Notes Filed: 01/09/2022 10:43 AM Note Text: Juan is a 62 year old who presents for an annual gynecologic exam without complaints. 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: Yes; Male Contraception: Surgical PAST MEDICAL HISTORY Diagnosis Date - Blood transfusion abn reaction or complication, no procedure mishap from diverticulitis - Diverticulitis of both large and small intestine - Endometriosis - Hemorrhoids - Hypertension - Hypothyroid - Menopause - Thyroid disorder PAST SURGICAL HISTORY Procedure Laterality Date - SECTION HX x3 - CHOLECYSTECTOMY HX 2008 - ELBOW SURGERY HX 12/08/2017 - INGUINAL HERNIA REPAIR HX Left 06/24/2020 - PAST SURGICAL HISTORY OF 2013 Bowel removal- colon resection for diverticulitis - REPAIR INCISIONAL HERNIA,REDUCIBLE N/A 06/24/2020 - STRESS ECHO EXERCISE 02/12/2016 - TOTAL ABDOMINAL HYSTERECT W/WO RMVL TUBE OVARY 2005 FAMILY HISTORY Problem Relation Age of Onset - Diabetes Mother - Breast Cancer Mother - Ovarian cancer Mother - Heart Mother - Thyroid Mother - Diabetes Father - Colon Cancer Father - Heart Father - Thyroid Father - Stroke Sister - Heart disease Brother - No Known Problems Sister - No Known Problems Sister - No Known Problems Sister - No Known Problems Sister - Heart disease Brother - No Known Problems Brother - No Known Problems Brother - No Known Problems Brother - No Known Problems Brother - No Known Problems Brother - No Known Problems Brother - No Known Problems Brother SOCIAL HISTORY Social History Tobacco Use - Smoking status: Current Every Day Smoker Packs/day: 1.00 Years: 40.00 Pack years: 40.00 Types: Cigarettes - Smokeless tobacco: Never Used Vaping Use - Vaping Use: Never used Substance Use Topics - Alcohol use: Yes Alcohol/week: 1.0 - 2.0 standard drink Types: 1 - 2 Glasses of Wine (5oz) per week - Drug use: No REVIEW OF SYSTEMS Abdomen: No abdominal pain, nausea, vomiting, diarrhea, or constipation. No bloating, early satiety, indigestion, or increased flatulence. Bladder: No dysuria, gross hematuria, urinary frequency, urinary urgency, or incontinence Breast: No breast lumps, nipple d/c, overlying skin changes, redness or skin retraction Allergies and current medication updated:Yes EXAM: BP 142/88 Ht 5' 1 (1.55m) Wt 175 lb (79.4kg) BMI 33.08 kg/(m2). GENERAL: pleasant, female in no apparent distress HEENT: Normocephalic, atraumatic, mucus membranes moist and no lesions NECK: Supple, full range of motion, no adenopathy and thyroid normal DERMATOLOGY: Normal, without lesions, non-icteric and non-hirsute BREAST: soft, non-tender, symmetric, no dominant mass, normal nipple-areolar complex, no lymphadenopathy and no nipple discharge CHEST: Normal inspiratory effort ABDOMEN: soft, non-tender and no masses PELVIC: external genitalia normal, normal Bartholin's glands, urethra, Chipley's glands, no vulvar lesions,, physiologic discharge present, normal appearing perineal body and perianal region BIMANUAL: non-tender RECTOVAGINAL: rectovaginal exam negative for any masses or nodularity. NEURO: alert and oriented x3,exam grossly non-focal EXTREMITIES: normal ASSESSMENT/PLAN: 1) Health maintenance: Pap/HPV screening no longer needed Mammogram ordered Colon cancer screening: patient to discuss with PCP Reorder ert will decrease triest dosage 2) Follow up one year or sooner as needed Darline Barnhart [facility]06-10-2022 Instructions* Patient Instructions* Darline Barnhart MD - 01/09/2022 10:32 AM EDT ACOG Screening Guidelines The following health screening schedule is recommended by the [employer] (ACOG). Some of these tests may be ordered or performed by your primary care doctor. Pap test screening The pap test looks at cells on the cervix (the opening from the vagina to the uterus) to look for cancer or pre-cancerous changes. These changes are caused by the human papillomavirus (HPV). Studies estimate that half of all women will test positive for this virus within 3 years of starting sexual activity. For young women with a normal immune system, 90% of HPV infections will resolve within 2 years. There is a vaccine available against some forms of HPV. This is recommended for girls and women age 9-45. For ages 9-14, two injections are given at 0 and 6 months. For ages 15-45, three injections are given at 0,2 and 6 months. Because this vaccine does not protect against all HPV types whichcan cause cervical cancer, women who received the vaccine still need pap tests. Pap smear screening should be started at age 21. The pap test should be done every 3 years from [id number]. From age 30-65, pap smears can be done every 5 years if HPV test is negative or every 3 years if HPV testing is not done. For women over the age of 65, ACOG recommends against screening women who have had adequate prior screening and are not otherwise at high risk for cervical cancer. Women who have had a hysterectomy also do not need routine pap smear screening unless the pap smear was done for a cervical cancer or moderate to severe dysplasia. Breast cancer screening Mammogram should be performed every 1-2 years starting at age 40 and every year starting at age 50.Screening may be started earlier depending on family history. Cholesterol screening Lipid panel (cholesterol test) should be checked every 5 years starting at age 45. Diabetes screening Fasting glucose (blood sugar) test should be performed every 3 years starting at age 45. Colorectal cancer screening Starting at age 45, women should have a screening colonoscopy at least every 10 years. Screening may be started earlier depending on family history. Thyroid screening Thyroid function test (TSH) should be checked every 5 years starting at age 50. Bone mineral density screening All postmenopausal women age 65 and over and postmenopausal women with risk factors for osteoporosis should have a bone mineral density test performed. Risk factors include race, family history of osteoporosis, personal history of fractures, poor nutrition, smoking, heavy alcohol use, early menopause, low calcium intake and low body weight. Certain medical conditions and long-term use of some medications may also increase risk. documented in this encounterM[facility]06[facility] History of Present illness Narrative* Darline Barnhart MD - 01/09/2022 10:29 AM EDT Juan is a 62 year old who presents for an annual gynecologic exam without complaints. 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: Yes; Male Contraception: Surgical PAST MEDICAL HISTORY Diagnosis Date Blood transfusion abn reaction or complication, no procedure mishap from diverticulitis Diverticulitis of both large and small intestine Endometriosis Hemorrhoids Hypertension Hypothyroid Menopause Thyroid disorder PAST SURGICAL HISTORY Procedure Laterality Date SECTION HX x3 CHOLECYSTECTOMY HX 2008 ELBOW SURGERY HX 12/08/2017 INGUINAL HERNIA REPAIR HX Left 06/24/2020 PAST SURGICAL HISTORY OF 2012 Bowel removal- colon resection for diverticulitis REPAIR INCISIONAL HERNIA,REDUCIBLE N/A 06/24/2020 STRESS ECHO EXERCISE 02/12/2016 TOTAL ABDOMINAL HYSTERECT W/WO RMVL TUBE OVARY 2004 FAMILY HISTORY Problem Relation Age of Onset Diabetes Mother Breast Cancer Mother Ovarian cancer Mother Heart Mother Thyroid Mother Diabetes Father Colon Cancer Father Heart Father Thyroid Father Stroke Sister Heart disease Brother No Known Problems Sister No Known Problems Sister No Known Problems Sister No Known Problems Sister Heart disease Brother No Known Problems Brother No Known Problems Brother No Known Problems Brother No Known Problems Brother No Known Problems Brother No Known Problems Brother No Known Problems Brother SOCIAL HISTORY Social History Tobacco Use Smoking status: Current Every Day Smoker Packs/day: 1.00 Years: 40.00 Pack years: 40.00 Types: Cigarettes Smokeless tobacco: Never Used Vaping Use Vaping Use: Never used Substance Use Topics Alcohol use: Yes Alcohol/week: 1.0 - 2.0 standard drink Types: 1 - 2 Glasses of Wine (5oz) per week Drug use: No REVIEW OF SYSTEMS Abdomen: No abdominal pain, nausea, vomiting, diarrhea, or constipation. No bloating, early satiety, indigestion, or increased flatulence. Bladder: No dysuria, gross hematuria, urinary frequency, urinary urgency, or incontinence Breast: No breast lumps, nipple d/c, overlying skin changes, redness or skin retraction Allergies and current medication updated:Yes EXAM: BP 142/88 Ht 5' 1 (1.55m) Wt 175 lb (79.4kg) BMI 33.08 kg/(m^2). GENERAL: pleasant, female in no apparent distress HEENT: Normocephalic, atraumatic, mucus membranes moist and no lesions NECK: Supple, full range of motion, no adenopathy and thyroid normal DERMATOLOGY: Normal, without lesions, non-icteric and non-hirsute BREAST: soft, non-tender, symmetric, no dominant mass, normal nipple-areolar complex, no lymphadenopathy and no nipple discharge CHEST: Normal inspiratory effort ABDOMEN: soft, non-tender and no masses PELVIC: external genitalia normal, normal Bartholin's glands, urethra, Chipley's glands, no vulvar lesions,, physiologic discharge present, normal appearing perineal body and perianal region BIMANUAL: non-tender RECTOVAGINAL: rectovaginal exam negative for any masses or nodularity. NEURO: alert and oriented x3,exam grossly non-focal EXTREMITIES: normal ASSESSMENT/PLAN: 1) Health maintenance: Pap/HPV screening no longer needed Mammogram ordered Colon cancer screening: patient to discuss with PCP Reorder ert will decrease triest dosage 2) Follow up one year or sooner as needed Darline Barnhart MD documented in this encounterMarietta [facility]11-26-2021 History of Present illness Narrative* Carlos Catherine, RT(R) - 06/27/2021 12:30 PM EST Radiology Service Progress Note PATIENT NAME: Juan Olsen DATE OF SERVICE: June 27, 2021 TIME: 12:32 PM PATIENT IDENTITY VERIFICATION COMPLETED USING TWO (2) IDENTIFIERS: Name and Date of confirmedby patient verbally. FALL SCREENING: Has the patient had 2 falls in the last year or 1 fall with injury or currently using an Ambulatory Assistive Device (Walker, Cane, Wheelchair, Crutches, etc.)? No PATIENT GENDER DATA: Female. status: : No status: NO. PATIENT RELEVANT IMPLANT DATA REVIEWED: Yes RADIOLOGY DEPARTMENT: MR; Exam(s) Completed: Lower MSK: Hip, left PERIPHERAL IV DATA: Not applicable SIGNED BY: RT Ulysses(R) June 27, 2021 12:32 PM documented in this encounterMarietta [facility] Hospital11-09-2021 History of Present illness Narrative* Lois Galvan RT(R) - 06/10/2021 7:30 AM EST Radiology Service Progress Note PATIENT NAME: Juan Olsen DATE OF SERVICE: June 10, 2021 TIME: 7:41 AM PATIENT IDENTITY VERIFICATION COMPLETED USING TWO (2) IDENTIFIERS: Name and Date of confirmedby patient verbally. FALL SCREENING: Has the patient had 2 falls in the last year or 1 fall with injury or currently using an Ambulatory Assistive Device (Walker, Cane, Wheelchair, Crutches, etc.)? No PATIENT GENDER DATA: Female. status: : No status: NO. PATIENT RELEVANT IMPLANT DATA REVIEWED: Not Applicable RADIOLOGY DEPARTMENT: General X-ray: Exam(s) Completed: Pelvis X-Ray: Pelvis with Hip Left PERIPHERAL IV DATA: Not applicable SIGNED BY: Diane Sylvester (RT) June 10, 2021 7:41 AM documented in this encounterMarietta [facility] Hospital05-18-2019 History of Past illness Narrative* Problem Noted Date Resolved Date Hypotension 12/17/2018 12/18/2018 Last Assessment & Plan: Assessment: She was given sublingual nitroglycerin enroute to the ED Noted to be hypotensive on arrival Blood pressure improved with normal saline bolus PLAN: Continue normal saline maintenance at 75 mL per hour Monitor vital signs every 6 hours Precordial chest pain 12/17/2018 12/18/2018 Last Assessment & Plan: Assessment: She presented with acute onset precordial chest pain/tightness immediately after her dinner, associated with dizziness and diaphoresis EKG revealed a sinus rhythm with no acute ST-T changes Troponin 1 negative Currently asymptomatic Received loading dose of aspirin and sublingual nitroglycerin by EMS Last stress test in 2016 negative PLAN: Get cardiac stress echo Cycle troponin Check HbA1c, TSH, lipid panel Counseled the patient about the adverse effects of smoking and encouraged to quit smoking Elevated lactic acid level 12/17/201812/18 Last Assessment & Plan: Assessment/PLAN: Serum lactate noted to be elevated at 2.7, likely secondary to hypotension Received fluid bolus WBC normal, no fever, chest x-ray showed no lung infiltrates Repeat lactate Check urinalysis Hypokalemia 12/17/2018 12/18/2018 Last Assessment & Plan: Assessment/PLAN: Serum potassium noted to be 2.9 mg/L She denies recent diarrhea, vomiting, diuretics Monitor and replace electrolytes documented as of this encounter (statuses as of 01/09/2022) [facility] History of Past illness Narrative* Problem Noted Date Resolved Date Hypotension 12/17/2018 12/18/2018 Last Assessment & Plan: Assessment: She was given sublingual nitroglycerin enroute to the ED Noted to be hypotensive on arrival Blood pressure improved with normal saline bolus PLAN: Continue normal saline maintenance at 75 mL per hour Monitor vital signs every 6 hours Precordial chest pain 12/17/2018 12/18/2018 Last Assessment & Plan: Assessment: She presented with acute onset precordial chest pain/tightness immediately after her dinner, associated with dizziness and diaphoresis EKG revealed a sinus rhythm with no acute ST-T changes Troponin 1 negative Currently asymptomatic Received loading dose of aspirin and sublingual nitroglycerin by EMS Last stress test in 2016 negative PLAN: Get cardiac stress echo Cycle troponin Check HbA1c, TSH, lipid panel Counseled the patient about the adverse effects of smoking and encouraged to quit smoking Elevated lactic acid level 12/17/201812/18 Last Assessment & Plan: Assessment/PLAN: Serum lactate noted to be elevated at 2.7, likely secondary to hypotension Received fluid bolus WBC normal, no fever, chest x-ray showed no lung infiltrates Repeat lactate Check urinalysis Hypokalemia 12/17/2018 12/18/2018 Last Assessment & Plan: Assessment/PLAN: Serum potassium noted to be 2.9 mg/L She denies recent diarrhea, vomiting, diuretics Monitor and replace electrolytes documented as of this encounter (statuses as of 01/13/2022) [facility] History of Past illness Narrative* Problem Noted Date Resolved Date Hypotension 12/17/2018 12/18/2018 Last Assessment & Plan: Assessment: She was given sublingual nitroglycerin enroute to the ED Noted to be hypotensive on arrival Blood pressure improved with normal saline bolus PLAN: Continue normal saline maintenance at 75 mL per hour Monitor vital signs every 6 hours Precordial chest pain 12/17/2018 12/18/2018 Last Assessment & Plan: Assessment: She presented with acute onset precordial chest pain/tightness immediately after her dinner, associated with dizziness and diaphoresis EKG revealed a sinus rhythm with no acute ST-T changes Troponin 1 negative Currently asymptomatic Received loading dose of aspirin and sublingual nitroglycerin by EMS Last stress test in 2016 negative PLAN: Get cardiac stress echo Cycle troponin Check HbA1c, TSH, lipid panel Counseled the patient about the adverse effects of smoking and encouraged to quit smoking Elevated lactic acid level 12/17/201812/18 Last Assessment & Plan: Assessment/PLAN: Serum lactate noted to be elevated at 2.7, likely secondary to hypotension Received fluid bolus WBC normal, no fever, chest x-ray showed no lung infiltrates Repeat lactate Check urinalysis Hypokalemia 12/17/2018 12/18/2018 Last Assessment & Plan: Assessment/PLAN: Serum potassium noted to be 2.9 mg/L She denies recent diarrhea, vomiting, diuretics Monitor and replace electrolytes documented as of this encounter (statuses as of 01/14/2022) [facility] History of Past illness Narrative* Problem Noted Date Resolved Date Hypotension 12/17/2018 12/18/2018 Last Assessment & Plan: Assessment: She was given sublingual nitroglycerin enroute to the ED Noted to be hypotensive on arrival Blood pressure improved with normal saline bolus PLAN: Continue normal saline maintenance at 75 mL per hour Monitor vital signs every 6 hours Precordial chest pain 12/17/2018 12/18/2018 Last Assessment & Plan: Assessment: She presented with acute onset precordial chest pain/tightness immediately after her dinner, associated with dizziness and diaphoresis EKG revealed a sinus rhythm with no acute ST-T changes Troponin 1 negative Currently asymptomatic Received loading dose of aspirin and sublingual nitroglycerin by EMS Last stress test in 2015 negative PLAN: Get cardiac stress echo Cycle troponin Check HbA1c, TSH, lipid panel Counseled the patient about the adverse effects of smoking and encouraged to quit smoking Elevated lactic acid level 12/17/201812/18 Last Assessment & Plan: Assessment/PLAN: Serum lactate noted to be elevated at 2.7, likely secondary to hypotension Received fluid bolus WBC normal, no fever, chest x-ray showed no lung infiltrates Repeat lactate Check urinalysis Hypokalemia 12/17/2018 12/18/2018 Last Assessment & Plan: Assessment/PLAN: Serum potassium noted to be 2.9 mg/L She denies recent diarrhea, vomiting, diuretics Monitor and replace electrolytes documented as of this encounter (statuses as of 01/14/2022) [facility] History of Past illness Narrative* Problem Noted Date Resolved Date Hypotension 12/17/2018 12/18/2018 Last Assessment & Plan: Assessment: She was given sublingual nitroglycerin enroute to the ED Noted to be hypotensive on arrival Blood pressure improved with normal saline bolus PLAN: Continue normal saline maintenance at 75 mL per hour Monitor vital signs every 6 hours Precordial chest pain 12/17/2018 12/18/2018 Last Assessment & Plan: Assessment: She presented with acute onset precordial chest pain/tightness immediately after her dinner, associated with dizziness and diaphoresis EKG revealed a sinus rhythm with no acute ST-T changes Troponin 1 negative Currently asymptomatic Received loading dose of aspirin and sublingual nitroglycerin by EMS Last stress test in 2016 negative PLAN: Get cardiac stress echo Cycle troponin Check HbA1c, TSH, lipid panel Counseled the patient about the adverse effects of smoking and encouraged to quit smoking Elevated lactic acid level 12/17/201812/18 Last Assessment & Plan: Assessment/PLAN: Serum lactate noted to be elevated at 2.7, likely secondary to hypotension Received fluid bolus WBC normal, no fever, chest x-ray showed no lung infiltrates Repeat lactate Check urinalysis Hypokalemia 12/17/2018 12/18/2018 Last Assessment & Plan: Assessment/PLAN: Serum potassium noted to be 2.9 mg/L She denies recent diarrhea, vomiting, diuretics Monitor and replace electrolytes documented as of this encounter (statuses as of 01/15/2022) [facility] History of Past illness Narrative* Problem Noted Date Resolved Date Hypotension 12/17/2018 12/18/2018 Last Assessment & Plan: Assessment: She was given sublingual nitroglycerin enroute to the ED Noted to be hypotensive on arrival Blood pressure improved with normal saline bolus PLAN: Continue normal saline maintenance at 75 mL per hour Monitor vital signs every 6 hours Precordial chest pain 12/17/2018 12/18/2018 Last Assessment & Plan: Assessment: She presented with acute onset precordial chest pain/tightness immediately after her dinner, associated with dizziness and diaphoresis EKG revealed a sinus rhythm with no acute ST-T changes Troponin 1 negative Currently asymptomatic Received loading dose of aspirin and sublingual nitroglycerin by EMS Last stress test in 2016 negative PLAN: Get cardiac stress echo Cycle troponin Check HbA1c, TSH, lipid panel Counseled the patient about the adverse effects of smoking and encouraged to quit smoking Elevated lactic acid level 12/17/201812/18 Last Assessment & Plan: Assessment/PLAN: Serum lactate noted to be elevated at 2.7, likely secondary to hypotension Received fluid bolus WBC normal, no fever, chest x-ray showed no lung infiltrates Repeat lactate Check urinalysis Hypokalemia 12/17/2018 12/18/2018 Last Assessment & Plan: Assessment/PLAN: Serum potassium noted to be 2.9 mg/L She denies recent diarrhea, vomiting, diuretics Monitor and replace electrolytes documented as of this encounter (statuses as of 01/28/2022) [facility] History of Past illness Narrative* Problem Noted Date Resolved Date Hypotension 12/17/2018 12/18/2018 Last Assessment & Plan: Assessment: She was given sublingual nitroglycerin enroute to the ED Noted to be hypotensive on arrival Blood pressure improved with normal saline bolus PLAN: Continue normal saline maintenance at 75 mL per hour Monitor vital signs every 6 hours Precordial chest pain 12/17/2018 12/18/2018 Last Assessment & Plan: Assessment: She presented with acute onset precordial chest pain/tightness immediately after her dinner, associated with dizziness and diaphoresis EKG revealed a sinus rhythm with no acute ST-T changes Troponin 1 negative Currently asymptomatic Received loading dose of aspirin and sublingual nitroglycerin by EMS Last stress test in 2016 negative PLAN: Get cardiac stress echo Cycle troponin Check HbA1c, TSH, lipid panel Counseled the patient about the adverse effects of smoking and encouraged to quit smoking Elevated lactic acid level 12/17/201812/18 Last Assessment & Plan: Assessment/PLAN: Serum lactate noted to be elevated at 2.7, likely secondary to hypotension Received fluid bolus WBC normal, no fever, chest x-ray showed no lung infiltrates Repeat lactate Check urinalysis Hypokalemia 12/17/2018 12/18/2018 Last Assessment & Plan: Assessment/PLAN: Serum potassium noted to be 2.9 mg/L She denies recent diarrhea, vomiting, diuretics Monitor and replace electrolytes documented as of this encounter (statuses as of 02/11/2022) [facility] of Past illness Narrative* Problem Noted Date Resolved Date Hypotension 12/17/2018 12/18/2018 Last Assessment & Plan: Assessment: She was given sublingual nitroglycerin enroute to the ED Noted to be hypotensive on arrival Blood pressure improved with normal saline bolus PLAN: Continue normal saline maintenance at 75 mL per hour Monitor vital signs every 6 hours Precordial chest pain 12/17/2018 12/18/2018 Last Assessment & Plan: Assessment: She presented with acute onset precordial chest pain/tightness immediately after her dinner, associated with dizziness and diaphoresis EKG revealed a sinus rhythm with no acute ST-T changes Troponin 1 negative Currently asymptomatic Received loading dose of aspirin and sublingual nitroglycerin by EMS Last stress test in 2015 negative PLAN: Get cardiac stress echo Cycle troponin Check HbA1c, TSH, lipid panel Counseled the patient about the adverse effects of smoking and encouraged to quit smoking Elevated lactic acid level 12/17/201812/18 Last Assessment & Plan: Assessment/PLAN: Serum lactate noted to be elevated at 2.7, likely secondary to hypotension Received fluid bolus WBC normal, no fever, chest x-ray showed no lung infiltrates Repeat lactate Check urinalysis Hypokalemia 12/17/2018 12/18/2018 Last Assessment & Plan: Assessment/PLAN: Serum potassium noted to be 2.9 mg/L She denies recent diarrhea, vomiting, diuretics Monitor and replace electrolytes documented as of this encounter (statuses as of 02/12/2022) [facility]05-18-2019 History of Past illness Narrative* Problem Noted Date Resolved Date Hypotension 12/17/2018 12/18/2018 Last Assessment & Plan: Assessment: She was given sublingual nitroglycerin enroute to the ED Noted to be hypotensive on arrival Blood pressure improved with normal saline bolus PLAN: Continue normal saline maintenance at 75 mL per hour Monitor vital signs every 6 hours Precordial chest pain 12/17/2018 12/18/2018 Last Assessment & Plan: Assessment: She presented with acute onset precordial chest pain/tightness immediately after her dinner, associated with dizziness and diaphoresis EKG revealed a sinus rhythm with no acute ST-T changes Troponin 1 negative Currently asymptomatic Received loading dose of aspirin and sublingual nitroglycerin by EMS Last stress test in 2016 negative PLAN: Get cardiac stress echo Cycle troponin Check HbA1c, TSH, lipid panel Counseled the patient about the adverse effects of smoking and encouraged to quit smoking Elevated lactic acid level 12/17/201812/18 Last Assessment & Plan: Assessment/PLAN: Serum lactate noted to be elevated at 2.7, likely secondary to hypotension Received fluid bolus WBC normal, no fever, chest x-ray showed no lung infiltrates Repeat lactate Check urinalysis Hypokalemia 12/17/2018 12/18/2018 Last Assessment & Plan: Assessment/PLAN: Serum potassium noted to be 2.9 mg/L She denies recent diarrhea, vomiting, diuretics Monitor and replace electrolytes documented as of this encounter (statuses as of 03/03/2022) [facility]05-18-2019 History of Past illness Narrative* Problem Noted Date Resolved Date Hypotension 12/17/2018 12/18/2018 Last Assessment & Plan: Assessment: She was given sublingual nitroglycerin enroute to the ED Noted to be hypotensive on arrival Blood pressure improved with normal saline bolus PLAN: Continue normal saline maintenance at 75 mL per hour Monitor vital signs every 6 hours Precordial chest pain 12/17/2018 12/18/2018 Last Assessment & Plan: Assessment: She presented with acute onset precordial chest pain/tightness immediately after her dinner, associated with dizziness and diaphoresis EKG revealed a sinus rhythm with no acute ST-T changes Troponin 1 negative Currently asymptomatic Received loading dose of aspirin and sublingual nitroglycerin by EMS Last stress test in 2016 negative PLAN: Get cardiac stress echo Cycle troponin Check HbA1c, TSH, lipid panel Counseled the patient about the adverse effects of smoking and encouraged to quit smoking Elevated lactic acid level 12/17/201812/18 Last Assessment & Plan: Assessment/PLAN: Serum lactate noted to be elevated at 2.7, likely secondary to hypotension Received fluid bolus WBC normal, no fever, chest x-ray showed no lung infiltrates Repeat lactate Check urinalysis Hypokalemia 12/17/2018 12/18/2018 Last Assessment & Plan: Assessment/PLAN: Serum potassium noted to be 2.9 mg/L She denies recent diarrhea, vomiting, diuretics Monitor and replace electrolytes documented as of this encounter (statuses as of 03/10/2022) [facility]05[facility] History of Past illness Narrative* Problem Noted Date Resolved Date Hypotension 12/17/2018 12/18/2018 Last Assessment & Plan: Assessment: She was given sublingual nitroglycerin enroute to the ED Noted to be hypotensive on arrival Blood pressure improved with normal saline bolus PLAN: Continue normal saline maintenance at 75 mL per hour Monitor vital signs every 6 hours Precordial chest pain 12/17/2018 12/18/2018 Last Assessment & Plan: Assessment: She presented with acute onset precordial chest pain/tightness immediately after her dinner, associated with dizziness and diaphoresis EKG revealed a sinus rhythm with no acute ST-T changes Troponin 1 negative Currently asymptomatic Received loading dose of aspirin and sublingual nitroglycerin by EMS Last stress test in 2016 negative PLAN: Get cardiac stress echo Cycle troponin Check HbA1c, TSH, lipid panel Counseled the patient about the adverse effects of smoking and encouraged to quit smoking Elevated lactic acid level 12/17/201812/18 Last Assessment & Plan: Assessment/PLAN: Serum lactate noted to be elevated at 2.7, likely secondary to hypotension Received fluid bolus WBC normal, no fever, chest x-ray showed no lung infiltrates Repeat lactate Check urinalysis Hypokalemia 12/17/2018 12/18/2018 Last Assessment & Plan: Assessment/PLAN: Serum potassium noted to be 2.9 mg/L She denies recent diarrhea, vomiting, diuretics Monitor and replace electrolytes documented as of this encounter (statuses as of 11/03/2022) [facility]05-[facility]2019 History of Past illness Narrative* Problem Noted Date Resolved Date Hypotension 12/17/2018 12/18/2018 Last Assessment & Plan: Assessment: She was given sublingual nitroglycerin enroute to the ED Noted to be hypotensive on arrival Blood pressure improved with normal saline bolus PLAN: Continue normal saline maintenance at 75 mL per hour Monitor vital signs every 6 hours Precordial chest pain 12/17/2018 12/18/2018 Last Assessment & Plan: Assessment: She presented with acute onset precordial chest pain/tightness immediately after her dinner, associated with dizziness and diaphoresis EKG revealed a sinus rhythm with no acute ST-T changes Troponin 1 negative Currently asymptomatic Received loading dose of aspirin and sublingual nitroglycerin by EMS Last stress test in 2016 negative PLAN: Get cardiac stress echo Cycle troponin Check HbA1c, TSH, lipid panel Counseled the patient about the adverse effects of smoking and encouraged to quit smoking Elevated lactic acid level 12/17/201812/18 Last Assessment & Plan: Assessment/PLAN: Serum lactate noted to be elevated at 2.7, likely secondary to hypotension Received fluid bolus WBC normal, no fever, chest x-ray showed no lung infiltrates Repeat lactate Check urinalysis Hypokalemia 12/17/2018 12/18/2018 Last Assessment & Plan: Assessment/PLAN: Serum potassium noted to be 2.9 mg/L She denies recent diarrhea, vomiting, diuretics Monitor and replace electrolytes documented as of this encounter (statuses as of 11/04/2022) [facility]05[facility]2019 History of Past illness Narrative* Problem Noted Date Resolved Date Hypotension 12/17/2018 12/18/2018 Last Assessment & Plan: Assessment: She was given sublingual nitroglycerin enroute to the ED Noted to be hypotensive on arrival Blood pressure improved with normal saline bolus PLAN: Continue normal saline maintenance at 75 mL per hour Monitor vital signs every 6 hours Precordial chest pain 12/17/2018 12/18/2018 Last Assessment & Plan: Assessment: She presented with acute onset precordial chest pain/tightness immediately after her dinner, associated with dizziness and diaphoresis EKG revealed a sinus rhythm with no acute ST-T changes Troponin 1 negative Currently asymptomatic Received loading dose of aspirin and sublingual nitroglycerin by EMS Last stress test in 2016 negative PLAN: Get cardiac stress echo Cycle troponin Check HbA1c, TSH, lipid panel Counseled the patient about the adverse effects of smoking and encouraged to quit smoking Elevated lactic acid level 12/17/201812/18 Last Assessment & Plan: Assessment/PLAN: Serum lactate noted to be elevated at 2.7, likely secondary to hypotension Received fluid bolus WBC normal, no fever, chest x-ray showed no lung infiltrates Repeat lactate Check urinalysis Hypokalemia 12/17/2018 12/18/2018 Last Assessment & Plan: Assessment/PLAN: Serum potassium noted to be 2.9 mg/L She denies recent diarrhea, vomiting, diuretics Monitor and replace electrolytes documented as of this encounter (statuses as of 11/04/2022) [facility] History of Past illness Narrative* Problem Noted Date Diagnosed Date Resolved Date Hypotension 12/17/2018 12/18/2018 Last Assessment & Plan: Assessment: She was given sublingual nitroglycerin enroute to the ED Noted to be hypotensive on arrival Blood pressure improved with normal saline bolus PLAN: Continue normal saline maintenance at 75 mL per hour Monitor vital signs every 6 hours Precordial chest pain 12/17/20182018 Last Assessment & Plan: Assessment: She presented with acute onset precordial chest pain/tightness immediately after her dinner, associated with dizziness and diaphoresis EKG revealed a sinus rhythm with no acute ST-T changes Troponin 1 negative Currently asymptomatic Received loading dose of aspirin and sublingual nitroglycerin by EMS Last stress test in 2016 negative PLAN: Get cardiac stress echo Cycle troponin Check HbA1c, TSH, lipid panel Counseled the patient about the adverse effects of smoking and encouraged to quit smoking Elevated lactic acid level 12/17/2018 0 12/18/2018 Last Assessment & Plan: Assessment/PLAN: Serum lactate noted to be elevated at 2.7, likely secondary to hypotension Received fluid bolus WBC normal, no fever, chest x-ray showed no lung infiltrates Repeat lactate Check urinalysis Hypokalemia 12/17/2018 12/18/2018 Last Assessment & Plan: Assessment/PLAN: Serum potassium noted to be 2.9 mg/L She denies recent diarrhea, vomiting, diuretics Monitor and replace electrolytes documented as of this encounter (statuses as of 02/11/2023) [facility] History of Past illness Narrative* Problem Noted Date Diagnosed Date Resolved Date Hypotension 12/17/2018 12/18/2018 Last Assessment & Plan: Assessment: She was given sublingual nitroglycerin enroute to the ED Noted to be hypotensive on arrival Blood pressure improved with normal saline bolus PLAN: Continue normal saline maintenance at 75 mL per hour Monitor vital signs every 6 hours Precordial chest pain 12/17/20182018 Last Assessment & Plan: Assessment: She presented with acute onset precordial chest pain/tightness immediately after her dinner, associated with dizziness and diaphoresis EKG revealed a sinus rhythm with no acute ST-T changes Troponin 1 negative Currently asymptomatic Received loading dose of aspirin and sublingual nitroglycerin by EMS Last stress test in 2016 negative PLAN: Get cardiac stress echo Cycle troponin Check HbA1c, TSH, lipid panel Counseled the patient about the adverse effects of smoking and encouraged to quit smoking Elevated lactic acid level 12/17/2018 0 12/18/2018 Last Assessment & Plan: Assessment/PLAN: Serum lactate noted to be elevated at 2.7, likely secondary to hypotension Received fluid bolus WBC normal, no fever, chest x-ray showed no lung infiltrates Repeat lactate Check urinalysis Hypokalemia 12/17/2018 12/18/2018 Last Assessment & Plan: Assessment/PLAN: Serum potassium noted to be 2.9 mg/L She denies recent diarrhea, vomiting, diuretics Monitor and replace electrolytes documented as of this encounter (statuses as of 03/24/2023) [facility] History of Past illness Narrative* Problem Noted Date Diagnosed Date Resolved Date Hypotension 12/17/2018 12/18/2018 Last Assessment & Plan: Assessment: She was given sublingual nitroglycerin enroute to the ED Noted to be hypotensive on arrival Blood pressure improved with normal saline bolus PLAN: Continue normal saline maintenance at 75 mL per hour Monitor vital signs every 6 hours Precordial chest pain 12/17/20182018 Last Assessment & Plan: Assessment: She presented with acute onset precordial chest pain/tightness immediately after her dinner, associated with dizziness and diaphoresis EKG revealed a sinus rhythm with no acute ST-T changes Troponin 1 negative Currently asymptomatic Received loading dose of aspirin and sublingual nitroglycerin by EMS Last stress test in 2016 negative PLAN: Get cardiac stress echo Cycle troponin Check HbA1c, TSH, lipid panel Counseled the patient about the adverse effects of smoking and encouraged to quit smoking Elevated lactic acid level 12/17/2018 0 12/18/2018 Last Assessment & Plan: Assessment/PLAN: Serum lactate noted to be elevated at 2.7, likely secondary to hypotension Received fluid bolus WBC normal, no fever, chest x-ray showed no lung infiltrates Repeat lactate Check urinalysis Hypokalemia 12/17/2018 12/18/2018 Last Assessment & Plan: Assessment/PLAN: Serum potassium noted to be 2.9 mg/L She denies recent diarrhea, vomiting, diuretics Monitor and replace electrolytes documented as of this encounter (statuses as of 06/06/2023) [facility] History of Past illness Narrative* Problem Noted Date Diagnosed Date Resolved Date Hypotension 12/17/2018 12/18/2018 Last Assessment & Plan: Assessment: She was given sublingual nitroglycerin enroute to the ED Noted to be hypotensive on arrival Blood pressure improved with normal saline bolus PLAN: Continue normal saline maintenance at 75 mL per hour Monitor vital signs every 6 hours Precordial chest pain 12/17/20182018 Last Assessment & Plan: Assessment: She presented with acute onset precordial chest pain/tightness immediately after her dinner, associated with dizziness and diaphoresis EKG revealed a sinus rhythm with no acute ST-T changes Troponin 1 negative Currently asymptomatic Received loading dose of aspirin and sublingual nitroglycerin by EMS Last stress test in 2016 negative PLAN: Get cardiac stress echo Cycle troponin Check HbA1c, TSH, lipid panel Counseled the patient about the adverse effects of smoking and encouraged to quit smoking Elevated lactic acid level 12/17/2018 0 12/18/2018 Last Assessment & Plan: Assessment/PLAN: Serum lactate noted to be elevated at 2.7, likely secondary to hypotension Received fluid bolus WBC normal, no fever, chest x-ray showed no lung infiltrates Repeat lactate Check urinalysis Hypokalemia 12/17/2018 12/18/2018 Last Assessment & Plan: Assessment/PLAN: Serum potassium noted to be 2.9 mg/L She denies recent diarrhea, vomiting, diuretics Monitor and replace electrolytes documented as of this encounter (statuses as of 06/17/2023) [facility] note* Diagnosis Encounter for gynecological examination (general) (routine) without abnormal findings Encounter for screening mammogram for breast cancer documented in this encounter [facility] note* Diagnosis Abnormal mammogram- Primary Abnormal mammogram, unspecified documented in this encounter [facility] note* Diagnosis Encounter for screening mammogram for breast cancer documented in this encounter [facility] note* Diagnosis Onset Date Resolution Status Bilateral hearing loss due to cerumen impaction acute Dermatitis fungal acute Hypothyroidism (acquired) ac [place] Hypertension chronic Abdominal pain acute Bowel obstruction acute Diverticulitis acute [facility] Work Phone: Evaluation note* Diagnosis Generalized abdominal pain- Primary Abdominal pain, generalized documented in this encounter [facility] note* Diagnosis Infection in abdomen (HCC) Unspecified peritonitis documented in this encounter [facility] note* Diagnosis Abnormal mammogram Abnormal mammogram, unspecified documented in this encounter [facility] note* Diagnosis Abnormal mammogram- Primary Abnormal mammogram, unspecified Follow-up examination of abnormal mammogram Abnormal mammogram, unspecified documented in this encounter [facility] note* Diagnosis Onset Date Resolution Status Cough acute Left otitis media acute Maxillary sinusitis acute Hypersomnia acute Hypothyroidism (acquired) ac [place] Hypertension chronic [facility] Work Phone: Evaluation note* Diagnosis Follow-up examination of abnormal mammogram Abnormal mammogram, unspecified documented in this encounter [facility] note* Diagnosis Follow-up examination of abnormal mammogram- Primary Abnormal mammogram, unspecified documented in this encounter [facility] note* Diagnosis Onset Date Resolution Status Hypersomnia acute Hypothyroidism (acquired) ac [place] Hypertension chronic Maxillary sinusitis, acute a cute Right acute otitis media acu te Bronchitis acute Left otitis media acute Maxillary sinusitis, acute a cute Smoker within last 12 months acute Obstructive Sleep Apnea-Hypopnea Syndrome noneactive [facility] Work Phone: Evaluation note* Diagnosis Encounter for screening for malignant neoplasm of colon- Primary Special screening for malignant neoplasms, colon Family history of colonic polyps [facility] Diagnosis Onset Date Resolution Status Bronchitis acute Maxillary sinusitis, acute a cute Menopausal flushing acute Hypothyroidism (acquired) ac [place] Right acute otitis media acu te Vertigo acute Hypertension chronic Diverticulitis large intestine acute Lower abdominal pain acute Sleep apnea chronic Smoking greater than 40 pack years chronic Menopausal flushing acute Hypertension chronic [facility] Work Phone: Evaluation note* Diagnosis Screening mammogram for breast cancer- Primary Abnormal mammogram Abnormal mammogram, unspecified Obstructive sleep apnea syndrome Obstructive sleep apnea (adult) (pediatric) Routine general medical examination at a [facility] care facility Type 2 diabetes mellitus without complication, without long-term current use of insulin (Multi) documented in this encounter [facility] Work Phone: Evaluation note* Diagnosis Chest pain, unspecified type- Primary Dyspnea, unspecified type Nausea Nausea alone Hypokalemia Hypopotassemia Hypotension Hypotension, unspecified Precordial chest pain Precordial pain Elevated lactic acid level Acidosis Hypokalemia Hypopotassemia Nicotine use disorder, F17.2 Tobacco use disorder Pre-op evaluation- Primary Preoperative examination, unspecified Incisional hernia of anterior abdominal wall without obstruction or gangrene Obstructive sleep apnea syndrome Obstructive sleep apnea (adult) (pediatric) Essential hypertension Unspecified essential hypertension Obesity, Class I, BMI 30-34.9 Obesity, unspecified Hyperlipidemia, unspecified hyperlipidemia type Nicotine use disorder, F17.2 Tobacco use disorder Acquired hypothyroidism Unspecified hypothyroidism Pain in hip Pain in joint, pelvic region and thigh [facility] Diagnosis Screening mammogram for breast cancer Abnormal mammogram Abnormal mammogram, unspecified documented in this encounter [facility] Work Phone: Evaluation note* Diagnosis Screening mammogram for breast cancer Abnormal mammogram Abnormal mammogram, unspecified documented in this encounter [facility] Work Phone: Evaluation note* Diagnosis Lower abdominal pain- Primary Abdominal pain, other specified site [facility] Syncope, unspecified syncope type- Primary documented in this encounter [facility] Work Phone: Hospital Discharge instructions* Attachments The following attachments cannot be sent through Care Everywhere. * Syncope (Fainting) Discharge Instructions (Honduran) [facility] Reason for referral (narrative)* Diagnostic Procedure Only (Routine) - Authorized Specialty Diagnoses / Procedures Referred By Contac t Referred To Contact [facility] Diagnoses Encounter for screening mammogram for breast cancer Procedures MIRZA SCREENING SCREENING MAMMOGRAPHY BI 2-VIEW BREAST INC CAD Darline Barnhart MD [address] [place] [address] [facility] [address] [place] [address] Referral ID Status Reason Start Date Expiration Date Visits Requested Visits Authorized [id number] Authorized Auto-Generat ed Referral 01/09/2022 02/08/2023 1 1 [facility] for referral (narrative)* Diagnostic Procedure Only (Routine) - Pending Review Specialty Diagnoses / Procedures Referred By Steve barillas Referred To Contact [facility] Diagnoses Abnormal mammogram Procedures MIRZA DIAGNOSTIC RT DIAGNOSTIC MAMMOGRAPHY COMPUTER-AIDED DETCJ UNI Darline Barnhart MD [address] [place] [address] [facility] [address] [place] [address] Referral ID Status Reason Start Date Expiration Date Visits Requested Visits Authorized [id number] Pending Review Auto-Generat ed Referral 01/13/2022 02/12/2023 1 1 * Diagnostic Procedure Only (Routine) - Pending Review Specialty Diagnoses / Procedures Referred By Contac t Referred To Contact [facility] Diagnoses Abnormal mammogram Procedures US BREAST COMPLETE RT US BREAST UNI REAL TIME WITH IMAGE COMPLETE Darline Barnhart MD [address] [place] [address] [facility] [address] [place] [address] Referral ID Status Reason Start Date Expiration Date Visits Requested Visits Authorized [id number] Pending Review Auto-Generat ed Referral 01/13/2022 02/12/2023 1 1 [facility] for referral (narrative)* Diagnostic Procedure Only (Routine) - Closed Specialty Diagnoses / Procedures Referred By Steve barillas Referred To Contact [facility] Diagnoses Encounter for screening mammogram for breast cancer Procedures MIRZA SCREENING SCREENING MAMMOGRAPHY BI 2-VIEW BREAST INC CAD Darline Barnhart MD [address] [place] [id number] [facility] [address] [place] [address] Referral ID Status Reason Start Date Expiration Date V isits Requested Visits Authorized [id number] Closed Auto-Generate d Referral 01/09/2022 02/08/2023 1 1 [facility] for referral (narrative)* Diagnostic Procedure Only (Routine) - Pending Review Specialty Diagnoses / Procedures Referred By Steve barillas Referred To Contact [facility] Diagnoses Follow-up examination of abnormal mammogram Procedures US BREAST LTD RT US BREAST UNI REAL TIME WITH IMAGE LIMITED Darline Barnhart MD [address] [place] [address] [facility] [address] [place] [address] Referral ID Status Reason Start Date Expiration Date Visits Requested Visits Authorized [id number] Pending Review Auto-Generat ed Referral 03/10/2022 04/09/2023 1 1 * Diagnostic Procedure Only (Routine) - Pending Review Specialty Diagnoses / Procedures Referred By Steve barillas Referred To Contact [facility] Diagnoses Follow-up examination of abnormal mammogram Procedures MIRZA DIAGNOSTIC RT DIAGNOSTIC MAMMOGRAPHY COMPUTER-AIDED DETCJ Darline Aaron MD [address] [place] [address] [facility] [address] [place] [address] Referral ID Status Reason Start Date Expiration Date Visits Requested Visits Authorized [id number] Pending Review Auto-Generat ed Referral 03/10/2022 04/09/2023 1 1 T [facility] for referral (narrative)* Diagnostic Procedure Only (Routine) - Closed Specialty Diagnoses / Procedures Referred By Lizaac t Referred To Contact [facility] Diagnoses Follow-up examination of abnormal mammogram Procedures US BREAST LTD RT US BREAST UNI REAL TIME WITH IMAGE LIMITED Darline Barnhart MD [address] [place] [address] [place] [address] Referral ID Status Reason Start Date Expiration Date V isits Requested Visits Authorized [id number] Closed Auto-Generate d Referral 03/10/2022 04/09/2023 1 1 T [facility] for referral (narrative)* Diagnostic Procedure Only (Routine) - Pending Review Specialty Diagnoses / Procedures Referred By Steve barillas Referred To Contact BR IMAGING Diagnoses Follow-up examination of abnormal mammogram Procedures MIRZA DIAGNOSTIC RIGHT DIAGNOSTIC MAMMOGRAPHY COMPUTER-AIDED DETCJ Darline Aaron MD [address] [place] [address] [facility] [address] [address] Referral ID Status Reason Start Date Expiration Date Visits Requested Visits Authorized [id number] Pending Review Auto-Generat ed Referral 11/03/2022 12/03/2023 1 1 T [facility] for referral (narrative)* Outpatient Procedure (Routine) - Authorized Specialty Diagnoses / Procedures Referred By Contac t Referred To Contact [facility] Diagnoses Encounter for screening for malignant neoplasm of colon Family history of colonic polyps Procedures COLONOSCOPY SCREENING COLONOSCOPY FLX DX W/COLLJ SPEC WHEN PFRMD Gena Menendez MD [address] [address] [facility] [address] [place] [address] Referral ID Status Reason Start Date Expiration Date Visits Requested Visits Authorized [id number] Authorized Auto-Generat ed Referral 02/10/2023 02/11/2024 [facility] Consultation (Routine) - Authorized Specialty Diagnoses / Procedures Referred By Steve t Referred To Contact Sleep Medicine Diagnoses Obstructive sleep apnea syndrome Cheli Wright MD [address] [facility], [address] [address] Referral ID Status Reason Start Date Expiration Date Visits Requested Visits Authorized [id number] Authorized Specialty Services Required 01/11/2024 01/10/2025 1 1 * Imaging (Routine) - Authorized Specialty Diagnoses / Procedures Referred By Steve t Referred To Contact Radiology Diagnoses Screening mammogram for breast cancer Abnormal mammogram Procedures BI US breast complete right Cheli Wright MD [address] [facility], [address] [address] Referral ID Status Reason Start Date Expiration Date Visits Requested Visits Authorized [id number] Authorized Perform Procedure 01/11/2024 01/10/2025 1 1 * Imaging (Routine) - Authorized Specialty Diagnoses / Procedures Referred By Steve t Referred To Contact Radiology Diagnoses Screening mammogram for breast cancer Abnormal mammogram Procedures BI mammo bilateral diagnostic Cheli Wright MD [address] [facility], [address] [address] Referral ID Status Reason Start Date Expiration Date Visits Requested Visits Authorized [id number] Authorized Perform Procedure 01/11/2024 01/10/2025 1 1 [facility] Work Phone: Reason for referral (narrative)No reason for [facility]: Reason for visit Narrative* Diagnostic Procedure Only (Routine) - Closed Specialty Diagnoses / Procedures Referred By Steve t Referred To Contact BR IMAGING Diagnoses Encounter for screening mammogram for breast cancer Procedures MIRZA SCREENING SCREENING MAMMOGRAPHY BI 2-VIEW BREAST INC CAD Darline Barnhart MD [address] [place] [address] [facility] [address] [id number] Referral ID Status Reason Start Date Expiration Date V isits Requested Visits Authorized [id number] Closed Auto-Generate d Referral 01/09/2022 02/08/2023 1 1 [facility] for visit Narrative* Diagnostic Procedure Only (Routine) - Closed Specialty Diagnoses / Procedures Referred By Steve t Referred To Contact [facility] IMAGING Diagnoses Abnormal mammogram Procedures MIRZA DIAGNOSTIC RT DIAGNOSTIC MAMMOGRAPHY COMPUTER-AIDED DETCJ UNI Darline Barnhart MD [address] [place] [address] [facility] [address] [id number] Referral ID Status Reason Start Date Expiration Date V isits Requested Visits Authorized [id number] Closed Auto-Generate d Referral 01/13/2022 02/12/2023 1 1 [facility] for visit Narrative* Diagnostic Procedure Only (Routine) - Closed Specialty Diagnoses / Procedures Referred By Steve t Referred To Contact BR IMAGING Diagnoses Follow-up examination of abnormal mammogram Procedures US BREAST LTD RT US BREAST UNI REAL TIME WITH IMAGE LIMITED Darline Barnhart MD [address] [place] [address] [facility] Imaging [address] [place] [address] Referral ID Status Reason Start Date Expiration Date V isits Requested Visits Authorized [id number] Closed Auto-Generate d Referral 03/10/2022 04/09/2023 1 1 [facility] Summary Purpose Family History No Family History Records Found Relationship Condition Age at Onset Recorded Date/T tara father Diabetes mellitus Unknown mother Diabetes mellitus Unknown sister Diabetes mellitus Unknown brother Diabetes mellitus Unknown Advance Directives No Advanced Directives Records FoundDocuments on File Type Date Recorded Patient 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 anation Advance Directives and Living Will Power of Bung Remover Documents on File Type Date Recorded Patient 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 anation Advance Directive(s) 12/17/2018 8:25 PM Documents on File Type Date Recorded Patient 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 anation Advance Directive(s) 06/24/2020 9:23 AM Advance Directive(s) 06/12/2020 4:24 PM Advance Directive(s) 12/17/2018 8:25 PM Documents on File Type Date Recorded Patient 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 anation Advance Directive(s) 06/24/2020 9:23 AM Advance Directive(s) 06/12/2020 4:24 PM Advance Directive(s) 12/17/2018 8:25 PM Documents on File Type Date Recorded Patient 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 anation Advance Directive(s) 01/15/2022 8:16 PM Advance Directive(s) 06/24/2020 9:23 AM Advance Directive(s) 06/12/2020 4:24 PM Advance Directive(s) 12/17/2018 8:25 PM Documents on File Type Date Recorded Patient 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 anation Advance Directive(s) 01/15/2022 8:16 PM Advance Directive(s) 06/24/2020 9:23 AM Advance Directive(s) 06/12/2020 4:24 PM Advance Directive(s) 12/17/2018 8:25 PM History of Past Illness Problem Noted Date Resolved Date Hypotension 12/17/2018 12/18/2018 Last Assessment & Plan: Assessment: She was given sublingual nitroglycerin enroute to the ED Noted to be hypotensive on arrival Blood pressure improved with normal saline bolus PLAN: Continue normal saline maintenance at 75 mL per hour Monitor vital signs every 6 hours Precordial chest pain 12/17/2018 12/18/2018 Last Assessment & Plan: Assessment: She presented with acute onset precordial chest pain/tightness immediately after her dinner, associated with dizziness and diaphoresis EKG revealed a sinus rhythm with no acute ST-T changes Troponin 1 negative Currently asymptomatic Received loading dose of aspirin and sublingual nitroglycerin by EMS Last stress test in 2016 negative PLAN: Get cardiac stress echo Cycle troponin Check HbA1c, TSH, lipid panel Counseled the patient about the adverse effects of smoking and encouraged to quit smoking Elevated lactic acid level 12/17/201812/18 Last Assessment & Plan: Assessment/PLAN: Serum lactate noted to be elevated at 2.7, likely secondary to hypotension Received fluid bolus WBC normal, no fever, chest x-ray showed no lung infiltrates Repeat lactate Check urinalysis Hypokalemia 12/17/2018 12/18/2018 Last Assessment & Plan: Assessment/PLAN: Serum potassium noted to be 2.9 mg/L She denies recent diarrhea, vomiting, diuretics Monitor and replace electrolytes Problem Noted Date Resolved Date Hypotension 12/17/2018 12/18/2018 Last Assessment & Plan: Assessment: She was given sublingual nitroglycerin enroute to the ED Noted to be hypotensive on arrival Blood pressure improved with normal saline bolus PLAN: Continue normal saline maintenance at 75 mL per hour Monitor vital signs every 6 hours Precordial chest pain 12/17/2018 12/18/2018 Last Assessment & Plan: Assessment: She presented with acute onset precordial chest pain/tightness immediately after her dinner, associated with dizziness and diaphoresis EKG revealed a sinus rhythm with no acute ST-T changes Troponin 1 negative Currently asymptomatic Received loading dose of aspirin and sublingual nitroglycerin by EMS Last stress test in 2016 negative PLAN: Get cardiac stress echo Cycle troponin Check HbA1c, TSH, lipid panel Counseled the patient about the adverse effects of smoking and encouraged to quit smoking Elevated lactic acid level 12/17/201812/18 Last Assessment & Plan: Assessment/PLAN: Serum lactate noted to be elevated at 2.7, likely secondary to hypotension Received fluid bolus WBC normal, no fever, chest x-ray showed no lung infiltrates Repeat lactate Check urinalysis Hypokalemia 12/17/2018 12/18/2018 Last Assessment & Plan: Assessment/PLAN: Serum potassium noted to be 2.9 mg/L She denies recent diarrhea, vomiting, diuretics Monitor and replace electrolytes Assessments Diagnosis Menopause- Primary Symptomatic menopausal or female climacteric states Chief Complaint and Reason for Visit Chief Complaint medication refills & Ear Cleaning Abdominal Cramping Reason for Visit Bilateral hearing lo ss due to cerumen impaction Dermatitis fungal Hypothyroidism (acquired) Hypertension Abdominal pain Bowel obstruction Diverticulitis Chief Complaint Sore throat & Ear co mplaints medication refills Reason for Visit Cough Left otitis media Maxillary sinusitis Hypersomnia Hypothyroidism (acquired) Hypertension Chief Complaint medication refills Sinus infection Sinus Sleep apnea Reason for Visit Hypersomnia Hypothyroidism (acquired) Hypertension Maxillary sinusitis, acute Right acute otitis media Bronchitis Left otitis media Maxillary sinusitis, acute Smoker within last 12 months Obstructive Sleep Apnea-Hypopnea Syndrome Chief Complaint medication refills Sinus infection Sinus Sleep apnea HYPERSOMNIA Personal history of nicotine dependence Personal history of nicotine dependence Reason for Visit Hypersomnia Hypothyroidism (acquired) Hypertension Maxillary sinusitis, acute Right acute otitis media Bronchitis Left otitis media Maxillary sinusitis, acute Smoker within last 12 months Obstructive Sleep Apnea-Hypopnea Syndrome Chief Complaint Sinus Sleep apnea HYPERSOMNIA Personal history of nicotine dependence Personal history of nicotine dependence Sinus Cough & congestion Dizziness, stumble while walking Reason for Visit Bronchitis Left otitis media Maxillary sinusitis, acute Smoker within last 12 months Obstructive Sleep Apnea-Hypopnea Syndrome Bronchitis Maxillary sinusitis, acute Menopausal flushing Hypothyroidism (acquired) Right acute otitis media Vertigo Hypertension Chief Complaint Sinus Cough & conges tion Dizziness, stumble while walking Abdominal pain PAP COMPLIANCE medication refills Reason for Visit Bronchitis Maxillary sinusitis, acute Menopausal flushing Hypothyroidism (acquired) Right acute otitis media Vertigo Hypertension Diverticulitis large intestine Lower abdominal pain Sleep apnea Smoking greater than 40 pack years Menopausal flushing Hypertension Chief Complaint Admit Date Sinus/congestion & ST October 11, 2024 3 :47pm Diverticulitis January 09, 2025 3:09 pm Abdominal pain February 01, 2025 4:49p m Reason for Visit Admit Date Bilateral hearing loss due to cerumen im paction October 11, 2024 3:47pm Bronchitis October 11, 2024 3:4 7pm Maxillary sinusitis, acute October 11, 2 025 3:47pm Constipation January 09, 2025 3:09 pm Diverticulitis large intestine December 3:09pm Lower abdominal pain January 09, 2025 3:0 9pm Rectal pain January 09, 2025 3:09 pm Diverticulitis large intestine February 01, 2025 4:49pm Hyperglycemia due to type 2 diabetes nikki litus February 01, 2025 4:49pm Lower abdominal pain February 01, 2025 4:49 pm Reason for Referral Specialty Diagnoses / Procedures Referred By Contac t Referred To Contact CT IMAGING Diagnoses Infection in abdomen (HCC) Procedures CT ABD/PEL W IVCON CT ABD & PELVIS W/CONTRAST Gena Menendez MD [address] [address] [address] Imaging Referral ID Status Reason Start Date Expiration Date V isits Requested Visits Authorized [id number] Closed Auto-Generate d Referral 02/11/2022 03/28/2022 1 1 Specialty Diagnoses / Procedures Referred By Contac t Referred To Contact MR IMAGING Diagnoses Pain in hip Procedures MRI HIP WO IVCON LT MRI, [place] [address] [place] [address] [place] [address] Referral ID Status Reason Start Date Expiration Date V isits Requested Visits Authorized [id number] Closed Auto-Generate d Referral 06/16/2021 07/31/2021 1 1 Specialty Diagnoses / Procedures Referred By Contac t Referred To Contact Radiology Diagnoses Screening mammogram for breast cancer Abnormal mammogram Procedures BI US breast limited right BI US breast complete right Cheli Wright MD [address] [facility], [facility] [address] [place] [address] Referral ID Status Reason Start Date Expiration Date Visits Requested Visits Authorized [id number] Pending Review Perform Procedure 01/11/2024 01/10/2025 1 1 Additional Source Comments INFORMATION SOURCE (unrecogn ized section and content) DATE CREATED AUTHOR 01/21/2018 [facility] [employer] DATE CREATED AUTHOR AUTHOR'S ORGANIZ ATION 05/20/2018 [facility] DATE CREATED AUTHOR AUTHOR'S ORGANIZ ATION 01/16/2020 [facility] [employer] DATE CREATED AUTHOR AUTHOR'S ORGANIZ ATION 11/07/2022 [facility] DATE CREATED AUTHOR AUTHOR'S ORGANIZ ATION 03/25/2023 [facility] DATE CREATED AUTHOR AUTHOR'S ORGANIZ ATION 06/19/2023 [facility] DATE CREATED AUTHOR AUTHOR'S ORGANIZ ATION 07/24/2023 [facility] DATE CREATED AUTHOR AUTHOR'S ORGANIZ ATION 01/13/2024 [facility] DATE CREATED AUTHOR AUTHOR'S ORGANIZ ATION 02/22/2024 [facility] DATE CREATED AUTHOR AUTHOR'S ORGANIZ ATION 02/22/2024 [facility] DATE CREATED AUTHOR AUTHOR'S ORGANIZ ATION 12/05/2024 [facility] DATE CREATED AUTHOR AUTHOR'S ORGANIZ ATION 02/11/2025 [facility] DATE CREATED AUTHOR AUTHOR'S ORGANIZ ATION 02/19/2025 [facility] DATE CREATED AUTHOR AUTHOR'S ORGANIZ ATION 02/19/2025 [facility] Source Comments (unrecognize d section and content) In the event this informatio n is protected by the Federal Confidentiality of Alcohol and Drug Abuse Patient Records regulations: The Federal rules restrict any use of the information to criminally investigate or prosecute any alcohol or drug abuse patient.[facility] the event this information is protected by the Federal Confidentiality of Alcohol and Drug Abuse Patient Records regulations: The Federal rules restrict any use of the information to criminally investigate or prosecute any alcohol or drug abuse patient.[facility] Hospital[facility] the event this information is protected by the Federal Confidentiality of Alcohol and Drug Abuse Patient Records regulations: The Federal rules restrict any use of the information to criminally investigate or prosecute any alcohol or drug abuse patient.[facility] Hospital[facility] the event this information is protected by the Federal Confidentiality of Alcohol and Drug Abuse Patient Records regulations: The Federal rules restrict any use of the information to criminally investigate or prosecute any alcohol or drug abuse patient.[facility] the event this information is protected by the Federal Confidentiality of Alcohol and Drug Abuse Patient Records regulations: The Federal rules restrict any use of the information to criminally investigate or prosecute any alcohol or drug abuse patient.[facility] the event this information is protected by the Federal Confidentiality of Alcohol and Drug Abuse Patient Records regulations: The Federal rules restrict any use of the information to criminally investigate or prosecute any alcohol or drug abuse patient.[facility] Hospital[facility] the event this information is protected by the Federal Confidentiality of Alcohol and Drug Abuse Patient Records regulations: The Federal rules restrict any use of the information to criminally investigate or prosecute any alcohol or drug abuse patient.[facility] the event this information is protected by the Federal Confidentiality of Alcohol and Drug Abuse Patient Records regulations: The Federal rules restrict any use of the information to criminally investigate or prosecute any alcohol or drug abuse patient.[facility] Hospital[facility] the event this information is protected by the Federal Confidentiality of Alcohol and Drug Abuse Patient Records regulations: The Federal rules restrict any use of the information to criminally investigate or prosecute any alcohol or drug abuse patient.[facility] Hospital[facility] the event this information is protected by the Federal Confidentiality of Alcohol and Drug Abuse Patient Records regulations: The Federal rules restrict any use of the information to criminally investigate or prosecute any alcohol or drug abuse patient.[facility] Hospital[facility] the event this information is protected by the Federal Confidentiality of Alcohol and Drug Abuse Patient Records regulations: The Federal rules restrict any use of the information to criminally investigate or prosecute any alcohol or drug abuse patient.[facility] Hospital[facility] the event this information is protected by the Federal Confidentiality of Alcohol and Drug Abuse Patient Records regulations: The Federal rules restrict any use of the information to criminally investigate or prosecute any alcohol or drug abuse patient.[facility] Hospital[facility] the event this information is protected by the Federal Confidentiality of Alcohol and Drug Abuse Patient Records regulations: The Federal rules restrict any use of the information to criminally investigate or prosecute any alcohol or drug abuse patient.[facility] Hospital[facility] the event this information is protected by the Federal Confidentiality of Alcohol and Drug Abuse Patient Records regulations: The Federal rules restrict any use of the information to criminally investigate or prosecute any alcohol or drug abuse patient.[facility] HospitalIn the event this information is protected by the Federal Confidentiality of Alcohol and Drug Abuse Patient Records regulations: The Federal rules restrict any use of the information to criminally investigate or prosecute any alcohol or drug abuse patient.[facility] Hospital[facility] the event this information is protected by the Federal Confidentiality of Alcohol and Drug Abuse Patient Records regulations: The Federal rules restrict any use of the information to criminally investigate or prosecute any alcohol or drug abuse patient.[facility] HospitalIn the event this information is protected by the Federal Confidentiality of Alcohol and Drug Abuse Patient Records regulations: The Federal rules restrict any use of the information to criminally investigate or prosecute any alcohol or drug abuse patient.[facility] HospitalIn the event this information is protected by the Federal Confidentiality of Alcohol and Drug Abuse Patient Records regulations: The Federal rules restrict any use of the information to criminally investigate or prosecute any alcohol or drug abuse patient.[facility] HospitalIn the event this information is protected by the Federal Confidentiality of Alcohol and Drug Abuse Patient Records regulations: The Federal rules restrict any use of the information to criminally investigate or prosecute any alcohol or drug abuse patient.[facility] HospitalIn the event this information is protected by the Federal Confidentiality of Alcohol and Drug Abuse Patient Records regulations: The Federal rules restrict any use of the information to criminally investigate or prosecute any alcohol or drug abuse patient.[facility] HospitalIn the event this information is protected by the Federal Confidentiality of Alcohol and Drug Abuse Patient Records regulations: The Federal rules restrict any use of the information to criminally investigate or prosecute any alcohol or drug abuse patient.[facility] Reason for Visit (unrecogniz ed section and content) Reason Onset Date Comments Refill Request 05/10/2020 Refill Request 05/16/2020 Reason Comments Well Woman needs roney order Reason Comments Results Mammogream results Reason Comments ED Follow-up for acute diverticul itis 01/15. Is much better, but still feels like something is not right. Has bowel movements every day but it is not normal. Reason Comments Follow Up abdominal pain RLQ w / sharp / spasm Specialty Diagnoses / Procedures Referred By Contac t Referred To Contact CT IMAGING Diagnoses Infection in abdomen (HCC) Procedures CT ABD/PEL W IVCON CT ABD & PELVIS W/CONTRAST Gena Menendez MD [address] [address] [address] Imaging Referral ID Status Reason Start Date Expiration Date V isits Requested Visits Authorized [id number] Closed Auto-Generate d Referral 02/11/2022 03/28/2022 1 1 Reason Comments Results Reason Comments Results Reason Comments Radio Gen RMP Reason Comments Establish Care CIVIL ENGINEER'S AIDE. Establish care. Check for ADHD. Reason Comments Radiology MRI Specialty Diagnoses / Procedures Referred By Contac t Referred To Contact MR IMAGING Diagnoses Pain in hip Procedures MRI HIP WO IVCON LT MRI, [place] [address] [place] [address] [place] [address] Referral ID Status Reason Start Date Expiration Date V isits Requested Visits Authorized [id number] Closed Auto-Generate d Referral 06/16/2021 07/31/2021 1 1 Specialty Diagnoses / Procedures Referred By Contac t Referred To Contact Radiology Diagnoses Screening mammogram for breast cancer Abnormal mammogram Procedures BI US breast limited right BI US breast complete right Cheli Wright MD [address] [facility], [address] [address] Referral ID Status Reason Start Date Expiration Date Visits Requested Visits Authorized [id number] Pending Review Perform Procedure 01/11/2024 01/10/2025 1 1 Specialty Diagnoses / Procedures Referred By Contac t Referred To Contact Radiology Diagnoses Screening mammogram for breast cancer Abnormal mammogram Procedures BI mammo bilateral diagnostic tomosynthesis BI mammo bilateral diagnostic Cheli Wright MD [address] [facility], [address] [address] Referral ID Status Reason Start Date Expiration Date Visits Requested Visits Authorized [id number] Pending Review Perform Procedure 01/11/2024 01/10/2025 1 1 Reason Comments Abdominal Pain Pt presents to ED fo r lower abdominal pain. Pt reports pain increased 3 days ago. Pt reports nausea and bloating. Hx diverticulitis. Reason Comments Syncope To er afd with c/o s yncopal episode. States she had just finished eating, stood and started feeling lightheaded, and sounded like she was in a tin can. Per bystanders, pt went unresponsive. Pt was alert and oriented and c/o nausea on ems arrival. Denies any pain Telephone Encounter - Mary Bonner (Rn) - 05/14/2020 4:26 PM EDT Miscellaneous Notes (unrecog nized section and content) Called to pharm documented in this encounter Care Teams (unrecognized sec tion and content) Sale Professional Digital Marketing Relationship Specialty Start Date End Date Glendy Anderson, FURNACE OPERATOR AND TENDER.MANAGER SKILLED [address] [place], [place] [id number] PCP - General Family Practice 12/17/18 Sale Professional Digital Marketing Relationship Specialty Start Date End Date Glendy Anderson, FURNACE OPERATOR AND TENDER.MANAGER SKILLED [address] [place], [place] [id number] PCP - General Family Practice 12/17/18 Sale Professional Digital Marketing Relationship Specialty Start Date End Date Glendy Anderson, FURNACE OPERATOR AND TENDER.MANAGER SKILLED [address] [place], [place] [phone] PCP - General Family Practice 12/17/18 Sale Professional Digital Marketing Relationship Specialty Start Date End Date Glendy Anderson, FURNACE OPERATOR AND TENDER.MANAGER SKILLED [address] [place], [place] [phone] PCP - General Family Practice 12/17/18 Sale Professional Digital Marketing Relationship Specialty Start Date End Date Glendy Anderson, FURNACE OPERATOR AND TENDER.MANAGER SKILLED [address] [place], [place] [phone] PCP - General Family Practice 12/17/18 Sale Professional Digital Marketing Relationship Specialty Start Date End Date Glendy Anderson, FURNACE OPERATOR AND TENDER.MANAGER SKILLED [address] [place], [place] [phone] PCP - General Family Practice 12/17/18 Sale Professional Digital Marketing Relationship Specialty Start Date End Date Glendy Anderson, FURNACE OPERATOR AND TENDER.MANAGER SKILLED [address] [place], [place] [phone] PCP - General Family Practice 12/17/18 Sale Professional Digital Marketing Relationship Specialty Start Date End Date Glendy Anderson, FURNACE OPERATOR AND TENDER.MANAGER SKILLED [address] [place], [place] [phone] PCP - General Family Practice 12/17/18 Sale Professional Digital Marketing Relationship Specialty Start Date End Date Glendy Anderson, FURNACE OPERATOR AND TENDER.MANAGER SKILLED [address] [place], [place] [phone] PCP - General Family Practice 12/17/18 Sale Professional Digital Marketing Relationship Specialty Start Date End Date Glendy Anderson, FURNACE OPERATOR AND TENDER.MANAGER SKILLED [address] [place], [place] [phone] PCP - General Family Medicine 12/17/18 Sale Professional Digital Marketing Relationship Specialty Start Date End Date Glendy Anderson FURNACE OPERATOR AND TENDER.MANAGER SKILLED [address] [place], [place] [phone] PCP - General Family Medicine 12/17/18 Sale Professional Digital Marketing Relationship Specialty Start Date End Date Glendy Anderson, FURNACE OPERATOR AND TENDER.MANAGER SKILLED [address] [place], [place] [phone] PCP - General Family Medicine 12/17/18 Team Status: Active Member Role Status Dates No Primary Care Physician Family Provider Active Glendy Anderson CIVIL ENGINEER'S AIDE, CIVIL ENGINEER'S AIDE-C Primary Care Provider Active Team Status: Inactive Member Role Status Dates Glendy Anderson CIVIL ENGINEER'S AIDE, CIVIL ENGINEER'S AIDE-C Primary Care Provider, Referr ing Provider Active Dr. Grey Tapia MD Attending Provider Active Team Status: Inactive Member Role Status Dates Glendy Anderson CIVIL ENGINEER'S AIDE, CIVIL ENGINEER'S AIDE-C Primary Care Pr ovider, Attending Provider, Referring Provider Active Team Status: Inactive Member Role Status Dates Glendy Anderson CIVIL ENGINEER'S AIDE, CIVIL ENGINEER'S AIDE-C Primary Care Provider, Attend ing Provider Active Team Status: Inactive Member Role Status Dates Glendy Anderson CIVIL ENGINEER'S AIDE, CIVIL ENGINEER'S AIDE-C Primary Care Provider Active Dr. Grey Tapia MD Attending Provider, Referring Provider Active Team Status: Active Member Role Status Dates Glendy Anderson CIVIL ENGINEER'S AIDE, CIVIL ENGINEER'S AIDE-C Primary Care Provider Active Dr. Grey Tapia MD Referring Provider, Other Pro vider Active Dr. Quinten Elliott DO Attending Provider Active Sale Professional Digital Marketing Relationship Specialty Start Date End Date Glendy Anderson, FURNACE OPERATOR AND TENDER.MANAGER SKILLED [address] [place], [place] [phone] PCP - General Family Medicine 12/17/18 Sale Professional Digital Marketing Relationship Specialty Start Date End Date Glendy Anderson, FURNACE OPERATOR AND TENDER.MANAGER SKILLED [address] [place], [place] [phone] PCP - General Family Medicine 12/17/18 Team Status: Inactive Member Role Status Dates Glendy Anderson CIVIL ENGINEER'S AIDE, CIVIL ENGINEER'S AIDE-C Primary Care Provider, Referr ing Provider Active Margie Reddy CIVIL ENGINEER'S AIDE, CIVIL ENGINEER'S AIDE-C Attending Provider Active Sale Professional Digital Marketing Relationship Specialty Start Date End Date Glendy Anderson, FURNACE OPERATOR AND TENDER.MANAGER SKILLED [address] [place] [address] PCP - General Family Medicine 12/17/18 Sale Professional Digital Marketing Relationship Specialty Start Date End Date Glendy Anderson, FURNACE OPERATOR AND TENDER.MANAGER SKILLED [address] [place], [place] [phone] PCP - General Family Medicine 12/17/18 Sale Professional Digital Marketing Relationship Specialty Start Date End Date Cheli Wright MD [address] [facility], [address] [place] [address] PCP - General Pediatrics 10/11/23 Sale Professional Digital Marketing Relationship Specialty Start Date End Date Glendy Anderson FURNACE OPERATOR AND TENDER.MANAGER SKILLED [address] [place], [place] [phone] PCP - General Family Medicine 12/17/18 Sale Professional Digital Marketing Relationship Specialty Start Date End Date Cheli Wright MD [address] [facility], [address] [place] [address] PCP - General Pediatrics 10/11/23 Sale Professional Digital Marketing Relationship Specialty Start Date End Date Glendy Anderson FURNACE OPERATOR AND TENDER-MANAGER SKILLED [address] [facility] [place], [place] [phone] PCP - General 02/02/24 Sale Professional Digital Marketing Relationship Specialty Start Date End Date Glendy Anderson FURNACE OPERATOR AND TENDER-MANAGER SKILLED [address] [facility] [place], [place] [phone] PCP - General 02/02/24 Sale Professional Digital Marketing Relationship Specialty Start Date End Date Glendy Anderson [address] [place] [address] PCP - General 12/17/18 Team Status: Active Member Role/Relationship Status Dates No Primary Care Physician Family Provider Active Glendy Anderson NP, CIVIL ENGINEER'S AIDE-C Primary Care Provider Active Team Status: Inactive Member Role/Relationship Status Dates Glendy Anderson NP, CIVIL ENGINEER'S AIDE-C Primary Care Provider Active Start: October 11, 2024 End: October 11, 2024 Glendy Anderson NP, CIVIL ENGINEER'S AIDE-C Attending Provider Active Start: October 11, 2024 End: October 11, 2024 Glendy Anderson NP, CIVIL ENGINEER'S AIDE-C Referring Provider Active Start: October 11, 2024 End: October 11, 2024 Team Status: Inactive Member Role/Relationship Status Dates Glendy Anderson NP, CIVIL ENGINEER'S AIDE-C Primary Care Provider Active Start: January 09, 2025 End: January 09, 2025 Glendy Anderson CIVIL ENGINEER'S AIDE, CIVIL ENGINEER'S AIDE-C Attending Provider Active Start: January 09, 2025 End: January 09, 2025 Glendy Anderson CIVIL ENGINEER'S AIDE, CIVIL ENGINEER'S AIDE-C Referring Provider Active Start: January 09, 2025 End: January 09, 2025 Team Status: Inactive Member Role/Relationship Status Dates Glendy Anderson CIVIL ENGINEER'S AIDE, CIVIL ENGINEER'S AIDE-C Primary Care Provider Active Start: February 01, 2025 End: February 01, 2025 Glendy Anderson CIVIL ENGINEER'S AIDE, CIVIL ENGINEER'S AIDE-C Attending Provider Active Start: February 01, 2025 End: February 01, 2025 Glendy Anderson CIVIL ENGINEER'S AIDE, CIVIL ENGINEER'S AIDE-C Referring Provider Active Start: February 01, 2025 End: February 01, 2025 Team Status: Inactive Member Role/Relationship Status Dates Glendy Anderson CIVIL ENGINEER'S AIDE, CIVIL ENGINEER'S AIDE-C Primary Care Provider Active Start: February 01, 2025 End: February 01, 2025 Glendy Anderson CIVIL ENGINEER'S AIDE, CIVIL ENGINEER'S AIDE-C Attending Provider Active Start: February 01, 2025 End: February 01, 2025 Sale Professional Digital Marketing Relationship Specialty Start Date End Date Glendy Anderson APRN-MANAGER SKILLED [address] [place] [address] PCP - General 02/02/24 Cheli Wright MD [address] [facility], [facility] [address] [place] [address] PCP - MMO ACO PCP 01/31/24 Goals (unrecognized section and content) Goals may be documented in a n alternate sectionGoals may be documented in an alternate sectionGoals may be documented in an alternate sectionGoals may be documented in an alternate sectionGoals may be documented in an alternate sectionGoals may be documented in an alternate sectionGoals may be documented in an alternate section Scheduled Active and Recently Administ ered Medications (unrecognized section and content) Medication Order 11/28/2024 11/29/2024 11/30/2024 dicyclomine (Bentyl) capsule 10 mg (COMPLETED) 10 mg, Oral, Once, On Suki 11/30/24 at 1335, For 1 dose 1336 (Given - Provid er: Silvina Ponce, RN) morphine injection 4 mg (COMPLETED) 4 mg, IntraVENous, Once, On Suki 11/30/24 at 1115, For 1 dose, If oral and injectable narcotics ordered, use oral first and only use injectable if oral is ineffective or cannot take oral. Do Not give oral and injectable within 1 hour of each other unless specifically ordered. 1123 (Given - Provid er: Silvina Ponce RN) ondansetron (Zofran) injection 4 mg (COMPLETED) 4 mg, IntraVENous, Once, On Suki 11/30/24 at 1115, For 1 dose 1122 (Given - Provid er: Silvina Ponce RN) PRN Medication Order 11/28/2024 11/29/2024 11/30/2024 iopamidol (Isovue-370) 76 % injection 75 mL (COMPLETED) 75 mL, IntraVENous, IMG once PRN, contrast, Starting on Suki 11/30/24 at 1120, For 1 dose 1204 (Given - Provid er: Demond Callaway) Scheduled Medication Order 02/13/2025 02/14/2025 02/15/2025 ondansetron (Zofran) injection 4 mg (COMPLETED) 4 mg, intravenous, Once, On Suki 02/15/25 at 1850, For 1 dose, When administering via IV Push, administer over 3-5 minutes. 185 (Given - Provid er: Sushila Gutiérrez RN) sodium chloride 0.9 % bolus 1,000 mL (COMPLETED) 1,000 mL, intravenous, at 999 mL/hr, Administer over 1 Hours, Once, On Suki 02/15/25 at 1925, For 1 dose 1923 (New Bag - Prov ider: Carrie Bennett, RN)2039 (Stopped - Provider: Roberto Unger RN) FOR RECORDS PERTAINING TO PATIENTS WHO ARE OR HAVE BEEN ENROLLED IN A CHEMICAL DEPENDENCY/SUBSTANCEABUSE PROGRAM, SOME INFORMATION MAY BE OMITTED. This clinical summary was aggregated from multiple sources. Caution should be exercised in using it in the provision of clinical care. This summary normalizes information from multiple sources, and as a consequence, information in this document may materially change the coding, format and clinical context of patient data. In addition, data may be omitted in some cases. CLINICAL DECISIONS SHOULD BE BASED ON THE PRIMARY CLINICAL RECORDS. [facility] provides no warranty or guarantee of the accuracy or completeness of information in this document.
[2025-02-20 03:38] LABS: Hematocrit 41.5 % (37-47); Hemoglobin 14.3 g/dL (12.0-15.0); Immature Granulocytes Count 0.010 X10^3/uL (0.0-0.0); Mean Corp Hgb Conc 34.5 g/dL (32-36); Mean Corpuscular Volume 90.4 fL (81-99); Mean Platelet Vol. 10.1 fl (6.2-12.0); NRBC Flagged by Analyzer 0 % (0-5); Platelet Count 331 K/mm3 (150-450); RBC Distribution Width CV 13.6 % (11.6-14.6); RBC Distribution Width SD 45.1 fl (35.1-43.9); Red Blood Count 4.59 M/mm3 (4.2-5.4); White Blood Count 6.8 K/mm3 (4.4-11.0)
[2025-02-20 04:52] LABS: AST(SGOT) 28 U/L (<=31); Alanine Aminotransfer ALT/SGPT 46 U/L (<=34); Albumin, Serum 4.5 g/dL (3.4-4.8); Alkaline Phosphatase 74 U/L (35-104); Anion Gap 14 (5-15); BUN 17 mg/dL (4-19); BUN/Creat Ratio 23.1 RATIO (10-20); Calcium,Total 10.0 mg/dL (7.6-11.0); Carbon Dioxide 23.9 mmol/L (21.0-32.0); Chloride 105 mmol/L (98-108); Free T3 2.7 pg/mL (2.18-3.98); Globulin 2.8 g/dL (2.2-4.2); Glucose 90 mg/dL (70-99); Magnesium 2.3 mg/dL (1.5-2.2); Potassium 4.7 mmol/L (3.3-5.1)
== END | disposition home or self-care (01) ==
PROVIDERS: PCP Nurse Practitioner; Referring Provider Nurse Practitioner; Visit Provider Nurse Practitioner
DX: R55 Syncope and collapse (principal); E11.65 Type 2 diabetes mellitus with hyperglycemia; R42 Dizziness and giddiness; I10 Essential (primary) hypertension; E87.6 Hypokalemia; E83.42 Hypomagnesemia
CPT/HCPCS: 80053; 83036; 83735; 84443; 84481; 85025

== ENCOUNTER 2025-07-03 06:26 | Day surgery (SDC) | payer OTHER, SELFPAY ==
--- NOTE | 2025-07-02 15:24 | PAT.ANE_ITS ---
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 When Was Last Pacemaker Check QUESTION #4 FULL TEXT: You/Your Family Experience fever (hyperthermia) with Anesthesia Last Oral Intake Last Oral intake: Last Oral Intake NPO since Meds taken in AM with sips of water? Meds patient instructed to take am of surgery PONV PONV - broadband technician: PONV - broadband technician Female Yes 06/29/25 09:51 HX of Motion Sickness No 06/29/25 09:51 HX of N/V After Surgery No 06/29/25 09:51 Non-Smoker Yes 06/29/25 09:51 Duration of Surgery greater No 06/29/25 09:51 than 60 minutes Number of Risk Factors 2 06/29/25 09:51 PONV Score Moderate Risk 06/29/25 09:51 Height & Weight Height & Weight: Anesthesia: Height & Weight Height 5 ft 2 in 06/27/25 14:57 Respiratory Assessment Respiratory Assessment - broadband technician: Respiratory Tract Infection Hx - broadband technician Hx Respiratory Tract Infection No 06/29/25 09:51 STOP Sleep Apnea STOP Sleep Apnea - broadband technician: STOP Sleep Apnea - broadband technician Hx Hypertension Yes: CONTROLLED ON MED 06/29/25 09:51 Hx Sleep Apnea No 06/29/25 09:51 CPAP BIPAP Do you snore loudly (louder No 06/29/25 09:51 than talking or can be heard Do you often feel tired/ No 06/29/25 09:51 fatigued/ sleepy during daytime? Has anyone observed you stop No 06/29/25 09:51 breathing during sleep? STOP Results Negative 06/29/25 09:51 QUESTION #5 FULL TEXT : Do you snore loudly (louder than talking or can be heard through closed doors)? 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 Specify any problems Hx of Preganancy in last 3 No 06/29/25 09:51 Months Nurse Filling Out Transfusion VCHRISTIN 06/29/25 09:51 & Questions: Date: 06/29/25 06/29/25 09:51 Time: 09:52 06/29/25 09:51 Patient unable to answer at this time (ie. confused, unrespo /Reproduction History /Reproductive History - broadband technician: /Reproductive Hx- broadband technician Hx Now No 06/29/25 09:51 Gestational Age (in weeks): EDC: Hx Hx Para Hx Section SAB No 06/29/25 09:51 Does the father of the baby or his family experience fever w Father of the baby Malignant Hypertension history comment [facility] Medical History (Updated 06/29/25 @ 09:51 by Ritika Rodas) Wears glasses Post-menopausal Alcohol use Thyroid disease Diabetes Arthritis History of diverticulitis Former smoker History of echocardiogram Cardiology follow-up encounter Hyperglycemia due to type 2 diabetes mellitus Smoker within last 12 months Hot flashes Sleep apnea in adult Hypertension Hypothyroidism Fibromyalgia Seborrheic dermatitis Left hip pain Diverticulitis Home Medications Medication Instructions Recorded Last Taken Type aspirin 81 mg tablet,delayed 81 mg PO DAILY 05/27/18 1 08/29/24 History release (Adult Low Dose Aspirin) flash glucose sensor (FreeStyle #1 ea 08/23/23 Unknown Rx Omi 2 Sensor kit) lisinopril 20 1 tab PO QDAY #90 tabs 07/17 Unknown Rx mg-hydrochlorothiazide 12.5 mg tablet metformin 500 mg tablet 500 mg PO BID #180 tabs 07/02 01/23 Unknown Rx trazodone 50 mg tablet 50 mg PO QHS sleep #90 tabs 07/17/24 Unknown Rx levothyroxine 150 mcg tablet 150 mcg PO DAILY #90 tabs 07/18/24 Unknown Rx Allergy/AdvReac Type Severity Reaction Status Date / Time prednisone Allergy Severe FELT DRUNK Verified 06/29/25 09:42 AND DIZZY, LIGHTHEADED hydrocodone Allergy Intermediate nausea and Verified 06/29/25 09:42 rash Penicillins Allergy Intermediate nausea and Verified 06/29/25 09:42 rash duloxetine AdvReac Severe Upset Verified 06/29/25 09:42 Stomach Family History (Updated 06/27/25 @ 14:57 by Yadira Rosenthal) Father Diabetes Hypertension Mother Diabetes Hypertension Sister Diabetes stated 3 sisters are diabetic Brother Diabetes stated she has 4 brothers that are diabetic Surgical History (Updated 06/29/25 @ 09:51 by Ritika Rodas) Hx of elbow surgery Hx of section H/O hernia repair History of cholecystectomy H/O colectomy FH: total abdominal hysterectomy and bilateral salpingo-oophorectomy Social History (Reviewed 03/20/25 @ 22:31 by 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 SPECT perfusion study normal. There is no scintigraphic evidence of inducible ischemia. Echo (EF%) pertinent findings: 03/20/2025 left ventricular systolic function is normal. EF 55%. Consult pertinent findings: Cardiology visit 03/21/2025. Cardiac workup including nuclear stress test and echocardiogram normal cardiac etiology for syncope less likely but not fully excluded pending event monitor results. Awaiting event monitor report will contact patient with results and further recommendations as indicated Recommendation Anesthesia Recommendation Anesthesia recommendation: F/U recommended (Awaiting results from Holter monitor)
--- NOTE | 2025-07-02 16:09 | PAT.ANESEVAL ---
Pre-Assessment Diagnosis/Proposed Procedure Planned Operative Procedure(s): COLONOSCOPY Anesthesia History Anesthesia History - substance abuse therapist: Anesthesia History - substance abuse therapist Hx Hospitalization No 06/29/25 09:51 Any Problems With Anesthesia No 06/29/25 09:51 Cholinesterase deficiency No 06/29/25 09:51 You/Your Family Experience No 06/29/25 09:51 fever (hyperthermia) with Relationship Recent Exposure to Contagious Disease Does patient have nerve No 06/29/25 09:51 stimulator Patient instructed to have device shut off --Does patient have Pacemaker or ICD? When Was Last Pacemaker Check QUESTION #4 FULL TEXT: You/Your Family Experience fever (hyperthermia) with Anesthesia Last Oral Intake Last Oral intake: Last Oral Intake NPO since Meds taken in AM with sips of water? Meds patient instructed to take am of surgery PONV PONV - substance abuse therapist: PONV - substance abuse therapist Female Yes 06/29/25 09:51 HX of Motion Sickness No 06/29/25 09:51 HX of N/V After Surgery No 06/29/25 09:51 Non-Smoker Yes 06/29/25 09:51 Duration of Surgery greater No 06/29/25 09:51 than 60 minutes Number of Risk Factors 2 06/29/25 09:51 PONV Score Moderate Risk 06/29/25 09:51 Height & Weight Height & Weight: Anesthesia: Height & Weight Height 5 ft 2 in 06/27/25 14:57 Respiratory Assessment Respiratory Assessment - substance abuse therapist: Respiratory Tract Infection Hx - substance abuse therapist Hx Respiratory Tract Infection No 06/29/25 09:51 STOP Sleep Apnea STOP Sleep Apnea - substance abuse therapist: STOP Sleep Apnea - substance abuse therapist Hx Hypertension Yes: CONTROLLED ON MED 06/29/25 09:51 Hx Sleep Apnea No 06/29/25 09:51 CPAP BIPAP Do you snore loudly (louder No 06/29/25 09:51 than talking or can be heard Do you often feel tired/ No 06/29/25 09:51 fatigued/ sleepy during daytime? Has anyone observed you stop No 06/29/25 09:51 breathing during sleep? STOP Results Negative 06/29/25 09:51 QUESTION #5 FULL TEXT : Do you snore loudly (louder than talking or can be heard through closed doors)? 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 Specify any problems Hx of Preganancy in last 3 No 06/29/25 09:51 Months Nurse Filling Out Transfusion VCHRISTIN 06/29/25 09:51 & Questions: Date: 06/29/25 06/29/25 09:51 Time: 09:52 06/29/25 09:51 Patient unable to answer at this time (ie. confused, unrespo /Reproduction History /Reproductive History - substance abuse therapist: /Reproductive Hx- substance abuse therapist Hx Now No 06/29/25 09:51 Gestational Age (in weeks): EDC: Hx Hx Para Hx Section SAB No 06/29/25 09:51 Does the father of the baby or his family experience fever w Father of the baby Malignant Hypertension history comment [facility] Medical History (Updated 06/29/25 @ 09:51 by Ritika Rodas) Wears glasses Post-menopausal Alcohol use Thyroid disease Diabetes Arthritis History of diverticulitis Former smoker History of echocardiogram Cardiology follow-up encounter Hyperglycemia due to type 2 diabetes mellitus Smoker within last 12 months Hot flashes Sleep apnea in adult Hypertension Hypothyroidism Fibromyalgia Seborrheic dermatitis Left hip pain Diverticulitis Home Medications Medication Instructions Recorded Last Taken Type aspirin 81 mg tablet,delayed 81 mg PO DAILY 05/27/18 06/29/25 History release (Adult Low Dose Aspirin) flash glucose sensor (FreeStyle #1 ea 08/23/23 Unknown Rx Omi 2 Sensor kit) lisinopril 20 1 tab PO QDAY #90 tabs 07/17/24 Unknown Rx mg-hydrochlorothiazide 12.5 mg tablet metformin 500 mg tablet 500 mg PO BID #180 tabs 07/17/24 Unknown Rx trazodone 50 mg tablet 50 mg PO QHS sleep #90 tabs 07/17/24 Unknown Rx levothyroxine 150 mcg tablet 150 mcg PO DAILY #90 tabs 07/18/24 Unknown Rx Allergy/AdvReac Type Severity Reaction Status Date / Time prednisone Allergy Severe FELT DRUNK Verified 06/29/25 09:42 AND DIZZY, LIGHTHEADED hydrocodone Allergy Intermediate nausea and Verified 06/29/25 09:42 rash Penicillins Allergy Intermediate nausea and Verified 06/29/25 09:42 rash duloxetine AdvReac Severe Upset Verified 06/29/25 09:42 Stomach Family History (Updated 06/27/25 @ 14:57 by Yadira Rosenthal) Father Diabetes Hypertension Mother Diabetes Hypertension Sister Diabetes stated 3 sisters are diabetic Brother Diabetes stated she has 4 brothers that are diabetic Surgical History (Updated 06/29/25 @ 09:51 by Ritika Rodas) Hx of elbow surgery Hx of section H/O hernia repair History of cholecystectomy H/O colectomy FH: total abdominal hysterectomy and bilateral salpingo-oophorectomy Social History Smoking Status: Former smoker second hand exposure: Yes Audit: Pertinent Findings HISTORY of Pertinent Findings History of Pertinent Findings: Stress Test Pertinent Findings Stress test pertinent findings 03/16/2025. SPECT perfusion 07/02/25 15:28 study normal. There is no scintigraphic evidence of inducible ischemia. Echo Pertinent Findings Echo (EF%) pertinent findings 03/20/2025 left ventricular 07/02/25 15:28 systolic function is normal. EF 55%. Consult Pertinent Findings Consult pertinent findings Cardiology visit 03/21/2025. 07/02/25 15:28 Cardiac workup including nuclear stress test and echocardiogram normal cardiac etiology for syncope less likely but not fully excluded pending event monitor results. Awaiting event monitor report will contact patient with results and further recommendations as indicated Pertinent Findings Additional pertinent findings: Holter monitor signed 04/03/2025. Patient had a minimum heart rate of 44 bpm, max heart rate of 164 bpm, and average heart rate of 70. Predominant underlying rhythm was sinus rhythm. Bundle branch block/IVCD was present. 32 supraventricular tachycardia runs occurred, the run with the fastest interval lasting 16 beats with a max rate of 164 bpm, the longest lasting 10.2 seconds with an average rate of 132 bpm. Recommendation Anesthesia Recommendation Anesthesia recommendation: OPTIMIZED for anesthesia
[2025-07-03] VITALS (8 sets, daily range): BP systolic 92–139; BP diastolic 64–89; PULSE 71–84; RESP 16; TEMP 36.1–36.4; O2SAT 92–94; BMI 32.5
--- OUTSIDE RECORDS SUMMARY | 2025-07-03 06:30 | XMS RPT_ITS | CCD ---
Author Organization [facility]ini[facility] Care Team Providers Care Technical Services Coordinator Name Role Phone Jigar Cho Unavailable Unavailable Chauncey, Radha Unavailable Unavailable Chauncey, Radha Unavailable Unavailable SEBASTIAN, D. R Unavailable Unavailable [facility] Unavailable Unavailable CHAUNCEY, RADHA Y Unavailable Unavailable SEBASTIAN, D. R Unavailable Unavailable SEBASTIAN, D. R Unavailable Unavailable CHAUCNEY, RADHA Y Unavailable Unavailable SEBASTIAN, D. R Unavailable Unavailable CHAUNCEY, RADHA Y Unavailable Unavailable Chauncey, Radha Primary Care Provider Radha Grossman Primary Care Provider Glendy Anderson Primary Care Provider Justin DIGITAL PRODUCTION OPERATOR.MINE INSPECTOR FEDERAL Glendy L Primary Care Provide r Justin DIGITAL PRODUCTION OPERATOR.LENNY Glendy L Primary Care Provide r Justin DIGITAL PRODUCTION OPERATOR.MINE INSPECTOR FEDERAL Glendy L Primary Care Provide r DARLINE BARNHART Attending Unavailable DARLINE BARNHART Referring Unavailable MELVIN ANDERSONA Rhiannon Primary Care Unavailable Justin AUTOMOTIVE SERVICES MANAGER, AUTOMOTIVE SERVICES MANAGER-C Glendy Primary Care Provider Justin AUTOMOTIVE SERVICES MANAGER, AUTOMOTIVE SERVICES MANAGER-C Glendy Referring Provider Dr. Grey Tapia Attending Provider Dr. Grey Tapia Referring Provider Dr. Grey Tapia Other Provider Dr. Quinten Elliott Attending Provider Dr. El Bee Primary Care Unavailab le Gilbert, Ms. Aliva Peggy Attending Unavailab le Anderson AUTOMOTIVE SERVICES MANAGER, AUTOMOTIVE SERVICES MANAGER-C Glendy Primary Care Provider Anderson AUTOMOTIVE SERVICES MANAGER, AUTOMOTIVE SERVICES MANAGER-C Glendy Referring Provider [phone] Maureen AUTOMOTIVE SERVICES MANAGER, AUTOMOTIVE SERVICES MANAGER-C Margie Attending Provider Cheli Wright MD Primary Care Provider CHELI WRIGHT Attending Unavailable CHELI WRIGHT Primary Care Unavailable CHELI WRIGHT Referring Unavailable ANDERSON, GLENDY L Primary Care Unavailable CHELI WRIGHT Referring Unavailable ANDERSON, GLENDY L Primary Care Unavailable Anderson DIGITAL PRODUCTION OPERATOR.MINE INSPECTOR FEDERAL, Glendy L Primary Care Provide r Anderson DIGITAL PRODUCTION OPERATOR-MINE INSPECTOR FEDERAL, Glendy L Primary Care Provide r Anderson, Glendy Primary Care Provider [phone] ANDERSON, GLENDY Primary Care Unavailable YADIRA MERIDA Attending Unavaila ble Anderson AUTOMOTIVE SERVICES MANAGER-C, Glendy Primary Care Provider [phone] Anderson AUTOMOTIVE SERVICES MANAGER-C, Glendy Attending Provider Anderson AUTOMOTIVE SERVICES MANAGER-C, Glendy Referring Provider Anderson DIGITAL PRODUCTION OPERATOR-MINE INSPECTOR FEDERAL, Glendy L Primary Care Provide r Cheli Wright MD Unavailable ANDERSON, GLENDY L Primary Care Unavailable Anderson AUTOMOTIVE SERVICES MANAGER-C, Glendy Primary Care Provider [phone] Anderson AUTOMOTIVE SERVICES MANAGER-C, Glendy Attending Provider Anderson AUTOMOTIVE SERVICES MANAGER-C, Glendy Referring Provider Anderson AUTOMOTIVE SERVICES MANAGER, Glendy Referring Unavailable Anderson AUTOMOTIVE SERVICES MANAGER, Glendy Attending Unavailable Anderson AUTOMOTIVE SERVICES MANAGER, Glendy Primary Care Unavailable Anderson AUTOMOTIVE SERVICES MANAGER, Glendy Attending Unavailable Anderson AUTOMOTIVE SERVICES MANAGER, Glendy Primary Care Unavailable Anderson AUTOMOTIVE SERVICES MANAGER, Glendy Attending Unavailable Anderson AUTOMOTIVE SERVICES MANAGER, Glendy Primary Care Unavailable Anderson AUTOMOTIVE SERVICES MANAGER, Glendy Referring Unavailable Wes Harris Attending Unavailable Anderson AUTOMOTIVE SERVICES MANAGER, Glendy Primary Care Unavailable Anderson AUTOMOTIVE SERVICES MANAGER, Glendy Referring Unavailable Anderson AUTOMOTIVE SERVICES MANAGER, Glendy Attending Unavailable Anderson AUTOMOTIVE SERVICES MANAGER, Glendy Primary Care Unavailable GINA GHOSH Referring Unavailable ANDERSON, GLENDY L Primary Care Unavailable GLENDY ANDERSON Primary Care Unavailable GLENDY ANDERSON Primary Care Unavailable GELNDY ANDERSON Primary Care Unavailable GLENDY ANDERSON Primary Care Unavailable RACHELLE CLEVELAND Referring Unavailable GLENDY ANDERSON Primary Care Unavailable RACHELLE CLEVELAND Referring Unavailable Allergies Allergy Classification Reported Allergen(s) Allergy Type Date of Onset Reaction(s) Facility (20 sources) acetaminophen / HYDROcodone; Translations: [HYDROCODONE-ACETA MINOPHEN] Drug Allergy 05-20-20 15 Shortness Of Breath, Swelling, Rash [facility] (20 sources) Penicillins; Translations: [PENICILLINS] Propensity to adverse reactions (disorder) 05-20-20 15 Swelling, Rash [facility] (4 sources) cyclobenzaprine Drug Allergy 05-18-20 17 Anxiety [place], [place] (20 sources) Tomatoes; Translations: [TOMATOES] Food Intolerance 06-11-20 20 GI Upset [facility] (8 sources) HYDROcodone Drug Allergy 05-27-20 18 nausea and rash [facility] (8 sources) predniSONE Drug Allergy 11-22-19 19 FELT DRUNK AND DIZZY, LIGHTHEADED [facility] (2 sources) DULoxetine Drug Allergy 12-01-19 25 [facility] (2 sources) Prednisone Allergy to substance 12-01-19 25 [facility] (2 sources) DULoxetine Drug Allergy 03-20-20 24 Upset Stomach [facility] (1 source) DULoxetine Drug Allergy 03-20-20 24 [facility] (1 source) HYDROcodone Drug Allergy 02-24-20 23 [facility] (1 source) predniSONE Drug Allergy 02-24-20 23 [facility] Medications Current Medications Medication Drug [...] once daily. b complex 0.4 mg tablet (9 sources) take 1 tablet by mouth once daily b complex 0.4 mg tablet Take 1 tablet by mouth once daily. Active B Complex-C (SUPER B COMPLEX PO) (2 sources) B Complex-C (SUP ER B COMPLEX PO) Take by mouth 0 Active 12 hr buPROPion hydrochloride 150 mg extended release oral tablet (2 sources) Aminoketone Start: 025 take 1 tablet by mouth twice daily Bupropion Hcl 150 mg tablet sustained-release 12 hr Active 150 mg PO TWICE A DAY 60 30 6 August 09, 2024 1:00am stop smoking cetirizine hydrochloride 10 mg oral tablet (20 sources) Histamine-1 Receptor Antagonist take 10 mg by mouth once daily cetirizine HCl (CETIRIZINE ORAL) Take 10 mg by mouth once daily. Active Comment on above: Take 10 mg by mouth once daily. cholecalciferol 0.01 mg oral capsule (10 sources) Vitamin D Start: 019 take 1 capsule by mouth once daily Cholecalciferol (Vitamin D3) 400 unit capsule Active 400 U PO DAILY December 28, 2018 12:00am take 1 tablet by mouth once jay y vitamin D (CHOLECALCIFEROL) 1000 UNIT TABS tablet Take 1,000 Units by mouth daily 0 Active diclofenac sodium 50 mg delayed release oral [...] mouth once 10 mg, Oral, Once, On [facility] 11/30/24 at 1335, For 1 dose enteric [...] enteric contrast guidelines ethinyl estradiol, testosterone (CPD) (20 sources) Start: 08-21-2019 ethinyl estrad iol, testosterone (CPD) Indications: Symptoms, such as flushing, sleeplessness, headache, lack of concentration, associated with the menopause Comments for compounding pharmacy: TRIESTROGEN 5 MG/TESTOSTERONE 1.5 MG CAPSULES 90 tablet 1 08/21/2019 Active Comment on above: Comments for compoun ding pharmacy: TRIESTROGEN 5 MG/TESTOSTERONE 1.5 MG CAPSULES Flash Glucose Sensor (Freestyle Omi 2 Sensor) kit (4 sources) Start: 08-23-2023 Flash Glucose Sensor (Freestyle [...] mellitus with hyperglycemia scan BS as needed iv contrast (will be provided with radiology test) (2 sources) Start: 02-11-2022 End: 02-12-2022 iv contrast (will be provided with radiology [...] 1 mg oral capsule (2 sources) Methylcobalamin (T25-HTECET) 1 MG CHEW Take by mouth 0 Active metFORMIN hydrochloride 500 mg oral tablet (16 sources) Biguanide Start: 07-15-2023 End: 07-17-2024 take 1 tablet by mouth twice daily Metformin 500 mg tablet Active 500 mg PO TWICE A DAY 180 July 17, 2024 9:06pm take 1 tablet by naila th once daily at breakfast metFORMIN (GLUCOPHAGE) 500 mg tablet Dennis e 500 mg by mouth daily with breakfast. Active MULTI-VITAMIN ORAL (20 sources) MULTI-VITAMIN OR AL Take by mouth. Active MULTI-VITAMIN OR AL Take by mouth. 0 Active Comment on above: Take by mouth. nystatin [id number] unt/ml topical cream (2 sources) Polyene Antifungal Start: 8 nystatin (MYCOSTATIN) [id number] UNIT/GM cream Indications: Vaginal irritation Apply topically 2 times daily. 1 Tube 0 05/20/2018 Active traZODone hydrochloride 50 mg oral tablet (2 sources) Serotonin Reuptake Inhibitor Start: 4 take 1 tablet by mouth at bedtime Trazodone 50 mg tablet Active 50 mg PO AT BEDTIME 90 July 17, 2024 1:00am sleep UNABLE TO FIND (2 sources) Start: 8 take 1.5 mg by mouth once daily, then take 5 mg by mouth, then take 1.5 mg by mouth UNABLE TO FIND Take 1.5 mg by mouth daily Compounded Prescription (Triestrogen 5mg/ Testosterone 1.5mg) 0 04/22/2018 Active Completed/Discontinued Medications Medication Drug Class(es) Dates Sig (Normalized) Sig (Original) [id number] 200 actuat albuterol 0.09 mg/actuat metered dose inhaler (6 sources) beta2-Adrenergic Agonist Start: 10-08-2022 End: 04-10-2024 Albuterol Sulfate (Ventolin Hfa) 90 mcg/actuation HFA [...] 2022 1:00am azithromycin 250 mg oral tablet (20 sources) Macrolide Antimicrobial Start: 10-11-2024 End: 10-16-2024 [...] 06/08/2018 Active cefdinir 300 mg oral capsule (14 sources) Cephalosporin Antibacterial Start: 10-01-2022 End: 10-20-2022 take 1 capsule by mouth twice daily Cefdinir 300 mg capsule Discontinued 300 mg PO TWICE A DAY 20 0 October 01, 2022 7:54pm October 20, 2022 11:45am Start: 03-28-2021 End: 01-13-2022 take 1 capsule by mouth twice daily Cefdinir 300 mg capsule Discontinued 300 mg PO TWICE A DAY 20 0 March 28, 2021 12:00am January 13, 2022 6:21pm celecoxib 200 mg oral capsule (2 sources) Nonsteroidal Anti-inflammatory Drug Start: 03-30-2024 End: 10-11-2024 take 1 capsule by mouth twice daily Celecoxib (Celebrex) 200 mg capsule Discontinued 200 mg PO TWICE A DAY 180 March 30, 2024 12:00am October 11, 2024 4:37pm ciprofloxacin 500 mg oral tablet (9 sources) Quinolone Antimicrobial Start: 02-01-2025 End: 02-15-2025 take 1 tablet by mouth twice daily Ciprofloxacin Hcl (Cipro) 500 mg tablet Discontinued 500 mg PO TWICE A DAY 28 14 0 February 01, 2025 12:00am February 14, 2025 12:00am February 15, 2025 12:07am Start: 11-30-2024 End: 12-10-2024 take 1 tablet by mouth twice daily ciprofloxacin (Cipro) 500 MG tablet Take 1 tablet (500 mg) by mouth 2 times daily for 10 days. 20 tablet 11/30/2024 12/10/2024 Active Start: 07-17-2024 End: 10-11-2024 take 1 tablet by mouth twice daily Ciprofloxacin Hcl (Cipro) 500 mg tablet Discontinued 500 mg PO TWICE A DAY 20 July 17, 2024 1:00am October 11, 2024 4:54pm Start: 02-11-2023 End: 03-30-2023 take 1 tablet by mouth twice daily Ciprofloxacin Hcl (Cipro) 500 mg tablet Discontinued 500 mg PO TWICE A DAY 14 0 February 11, 2023 12:00am March 30, 2023 6:32pm clarithromycin 500 mg oral tablet (18 sources) Macrolide Antimicrobial Start: 12-10-2022 End: 02-11-2023 take 1 tablet by mouth twice daily Clarithromycin 500 mg tablet Discontinued 500 mg PO TWICE A DAY 20 0 December 10, 2022 5:23pm February 11, 2023 8:09pm Start: 10-19-2022 End: 11-03-2022 take 1 tablet by mouth twice daily Clarithromycin 500 mg tablet Discontinued 500 mg PO TWICE A DAY 20 0 October 19, 2022 12:00am November 03, 2022 8:11am Start: 09-02-2018 End: 12-28-2018 take 1 tablet by mouth twice daily Clarithromycin 500 mg tablet Discontinued 500 mg PO TWICE A DAY 20 0 September 02, 2018 1:00am December 28, 2018 5:19pm doxycycline hyclate 100 mg oral tablet (8 sources) Tetracycline-class Drug Start: 03-13-2019 End: 09-15-2019 take 1 tablet by mouth twice daily Doxycycline Hyclate 100 mg tablet Discontinued 100 mg PO TWICE A DAY 28 March 13, 2019 12:00am September 15, 2019 2:04pm DULoxetine 30 mg delayed release oral capsule (5 sources) Serotonin and Norepinephrine Reuptake Inhibitor Start: [...] once daily. furosemide 20 mg oral tablet (4 sources) Loop Diuretic Start: 023 End: 023 take 1 tablet by mouth every other day Furosemide 20 mg tablet Discontinued 20 mg PO every other day 5 10 0 January 27, 2023 12:00am February 05, 2023 12:00am February 06, 2023 12:10am gadobutrol (GADAVIST) injection 2 mL (1 source) Start: 020 End: gadobutrol (GADAVIST) injection 2 mL hydroCHLOROthiazide 12.5 mg / lisinopril 20 mg oral tablet (20 sources) Thiazide Diuretic, Angiotensin Converting Enzyme Inhibitor Start: End: Lisinopril-Hydrochl orothiazide 20-12.5 mg tablet Discontinued 1 {tbl} PO daily March 30, 2023 6:42pm July 17, 2024 9:07pm Start: 12-28-2018 End: 03-30-2023 take 1 tablet by mouth once daily Lisinopril-Hydrochlorothiazide Active 1 TABLET PO daily March 30, 2023 6:42pm Start: 05-27-2018 End: 12-28-2018 take 1 tablet by mouth once daily Lisinopril-Hydrochlorothiazide Discontin ued 1 TABLET PO DAILY November 21, 2018 3:24pm December 28, 2018 5:18pm Start: 03-14-2018 End: 12-28-2018 take 0.5 tablet by mouth once daily lisinopril-hydrochlorothiazide (PRINZIDE , ZESTORETIC) 20-25 mg per tablet Take 0.5 tablets by mouth once daily. 12/18/2018 Active Comment on above: Take 0.5 tablets by mouth once daily. iopamidol (ISOVUE-300) 61 % injection 25 mL [...] take 1 tablet by mouth once daily levothyroxine (SYNTHROID) 137 mcg tablet Take 137 mcg by mouth once daily. 12/13/2015 Active Comment on above: Take 137 mcg by mout h once daily. meclizine hydrochloride 12.5 mg oral tablet (2 sources) Antiemetic Start: End: take 1 tablet by mouth three times daily as needed for dizziness Meclizine 12.5 mg tablet Discontinued 12.5 mg PO THREE TIMES A DAY as needed for dizziness 60 6 November 10, 2023 12:00am July 17, 2024 8:41pm metroNIDAZOLE 250 mg oral tablet (11 sources) Nitroimidazole Antimicrobial Start: 025 End: take 1 tablet by mouth three times daily Metronidazole 250 mg tablet Discontinued 250 mg PO THREE TIMES A DAY 42 14 0 February 01, 2025 12:00am February 14, 2025 12:00am February 15, 2025 12:07am Start: 01-09-2025 End: 01-19-2025 take 1 tablet [...] 11, 2023 12:00am March 30, 2023 6:33pm modafinil 200 mg oral tablet (7 sources) Sympathomimetic-like Agent Start: 07-29-2022 End: 12-10-2022 take 1 tablet by mouth once daily Modafinil (Provigil) 200 mg tablet Discontinued 200 mg PO DAILY 90 0 July 29, 2022 1:00am December 10, 2022 5:20pm mometasone furoate 1 mg/ml topical cream (20 sources) Corticosteroid Start: 09-16-2020 End: 01-13-2022 Mometasone 0.1 % cream Discontinued 1 NMA [...] ordered. 2 ml ondansetron 2 mg/ml injection (6 sources) Serotonin-3 Receptor Antagonist Start: 02-15-2025 End: 02-15-2025 4 mg, intravenous, Once, On [place] 02/15/25 at 1850, For 1 dose, When administering via IV Push, administer over 3-5 minutes. Start: 11-30-2024 End: 11-30-2024 4 mg, IntraVENous, Once, On [place] 11/30/24 at 1115, For 1 dose Start: 02-11-2023 End: 03-30-2023 take 1 tablet by mouth every eight hours Ondansetron Hcl 4 mg tablet Discontinued 4 mg PO Q8H 30 February 11, 2023 12:00am March 30, 2023 6:33pm PARoxetine hydrochloride 10 mg oral tablet (7 sources) Serotonin Reuptake Inhibitor Start: 12-10-2022 End: 11-10-2023 take 1 tablet by mouth once daily Paroxetine Hcl 10 mg tablet Discontinued 10 mg PO DAILY 90 3 March 30, 2023 6:43pm November 10, 2023 6:21pm predniSONE 10 mg oral tablet (8 sources) Start: 10-25-2018 End: 11-02-2018 take 2 tablets by mouth twice daily as needed, then take 1 tablet by mouth twice daily as needed, then take 0.5 tablet by mouth once daily as needed Prednisone 10 mg tablet Discontinued 20 mg PO TWICE A DAY as needed for R shoulder pain 30 4 October 25, 2018 12:00am November 01, 2018 12:00am November 02, 2018 12:08am 2 po bid 4D,1 po bid for 4 D, 1 po qd for 4D 1/2 po qd for2 D Start: 10-25-2018 End: 11-02-2018 Prednisone Discontinued 20 M G PO TWICE A DAY 30 October 25, 2018 12:00am November 02, 2018 12:08am 2 po bid 4D,1 po bid for 4 D, 1 po qd for 4D 1/2 po qd for2 D regadenoson 0.4 mg injection (LEXISCAN) (2 sources) Start: 03-16-2025 End: 03-16-2025 regadenoson 0.4 mg injection (LEXISCAN) Start: 03-16-2025 End: 03-16-2025 0.4 mg, INTRAVENOUS, ONCE, 1 dose, On Wed03/16/25 at 1000, Give 0.4 mg (5 mL) over ~10 seconds, followed immediately by a 5 mL saline flush. Wait 10-20 seconds, then administer the radionuclide myocardial perfusion imaging agent. 1000 ml sodium chloride 9 mg/ml injection (1 source) Start: 02-15-2025 End: 02-15-2025 1,000 mL, intravenous, at 999 mL/hr, Administer over 1 Hours, Once, On [place] 02/15/25 at 1925, For 1 dose vitamin b12 0.5 mg oral tablet (8 sources) Vitamin B12 Start: 05-27-2018 End: 06-11-2020 take 1 tablet by mouth once daily Cyanocobalamin (Vitamin B-12) 500 mcg tablet Discontinued 500 ug PO DAILY May 27, 2018 12:00am June 11, 2020 6:26pm Problems Active Problems Problem Classification Problem Date Documented Da te Episodic/Chronic Abdominal pain (2 sources) Pelvic and perineal pain; Translations: [Pelvic and perineal pain] Onset: 09-22-2017 Anal and rectal conditions (2 sources) Rectal pain; Translations: [Other specified diseases of anus and rectum] 01-09-2025 Episodic Anxiety disorders (4 sources) Anxiety; Translations: [Anxiety disorder, unspecified] Onset: 09-27-2017 09-27-2017 Chronic Chronic obstructive pulmonary disease and bronchiectasis (6 sources) Bronchitis; Translations: [Bronchitis, not specified as acute or chronic] 10-19-2022 Episodic Conditions associated with dizziness or vertigo (4 sources) Vertigo; Translations: [Dizziness and giddiness] 01-27-2023 Episodic Diabetes mellitus with complications (3 sources) Hyperglycemia due to type 2 diabetes mellitus; Translations: [Type 2 diabetes mellitus with hyperglycemia] Onset: 02-22-2025 07-16-2023 Chronic Diabetes mellitus without complication (14 sources) Type 2 diabetes mellitus without complication; Translations: [Type 2 diabetes mellitus without complications] Onset: 01-11-2024 01-11-2024 Chronic Disorders of lipid metabolism (20 sources) Hyperlipidemia; Translations: [Hyperlipidemia, unspecified] Onset: 02-12-2016 06-20-2020 Chronic Diverticulosis and diverticulitis (20 sources) Diverticulitis; Translations: [Diverticulitis of intestine, part unspecified, without perforation or abscess without bleeding] Onset: 01-17-2022 01-17-2022 Chronic Essential hypertension (20 sources) Essential (primary) hypertension; Translations: [Hypertensive disorder] Onset: 05-20-2015 05-20-2015 Chronic Immunizations and screening for infectious disease (8 sources) Contact with or exposure to other viral diseases; Translations: [Exposure to COVID-19 virus] 08-13-2021 Episodic Intestinal obstruction without hernia (8 sources) Intestinal obstruction; Translations: [Unspecified intestinal obstruction, unspecified as to partial versus complete obstruction] 01-15-2022 Episodic Malaise and fatigue (8 sources) Fatigue; Translations: [Other fatigue] 06-12-2020 Episodic Menopausal disorders (5 sources) Menopausal and female climacteric states; Translations: [Menopausal flushing] Onset: 03-07-2018 12-10-2022 Chronic Mycoses (8 sources) Dermal mycosis; Translations: [Superficial mycosis, unspecified] 01-13-2022 Episodic Nutritional deficiencies (16 sources) Vitamin D deficiency; Translations: [Vitamin D deficiency, unspecified] 12-28-2018 Chronic Nutritional deficiencies (8 sources) Vitamin B deficiency; Translations: [Vitamin B deficiency, unspecified] 01-13-2022 Episodic Other ear and sense organ disorders (8 sources) Ear pressure sensation; Translations: [Other specified disorders of ear, unspecified ear] 05-28-2018 Episodic Other ear and sense organ disorders (8 sources) Bilateral hearing loss; Translations: [Impacted cerumen, bilateral] 05-28-2018 Episodic Other ear and sense organ disorders (8 sources) Otitis externa; Translations: [Acute reactive otitis externa, unspecified ear] 09-15-2019 Episodic Other ear and sense organ disorders (8 sources) Impacted cerumen; Translations: [Impacted cerumen, right ear] 09-15-2019 Episodic Other gastrointestinal disorders (2 sources) Constipation; Translations: [Constipation, unspecified] 01-09-2025 Episodic Other inflammatory condition of skin (8 sources) Seborrheic dermatitis; Translations: [Seborrheic dermatitis, unspecified] 10-19-2019 Episodic Other lower respiratory disease (7 sources) Cough; Translations: [Cough] 04-13-2022 Episodic Other non-traumatic joint disorders (8 sources) Joint pain; Translations: [Pain in unspecified joint] 03-13-2019 Episodic Other non-traumatic joint disorders (4 sources) Shoulder pain; Translations: [Pain in right shoulder] 10-25-2018 Episodic Other non-traumatic joint disorders (9 sources) Hip pain; Translations: [Pain in left hip] 03-28-2021 Episodic Other non-traumatic joint disorders (4 sources) Pain in right shoulder; Translations: [Right shoulder pain] 10-25-2018 Episodic Other nutritional; endocrine; and metabolic disorders (20 sources) Obese class I; Translations: [Obesity, unspecified] Onset: 12-18-2018 06-24-2020 Chronic Other nutritional; endocrine; and metabolic disorders (2 sources) Hypomagnesemia; Translations: [Hypomagnesemia] 02-19-2025 Chronic Other nutritional; endocrine; and metabolic disorders (3 sources) Obese class I; Translations: [Obesity, Class I, BMI 30-34.9] Onset: 12-18-2018 12-18-2018 Other upper respiratory infections (8 sources) Maxillary sinusitis; Translations: [Chronic maxillary sinusitis] 09-02-2018 Chronic Other upper respiratory infections (6 sources) Acute maxillary sinusitis; Translations: [Acute maxillary sinusitis, unspecified] 10-01-2022 Episodic Otitis media and related conditions (20 sources) Otitis media; Translations: [Otitis media, unspecified, left ear] 10-01-2022 Episodic Peritonitis and intestinal abscess (1 source) Infectious disease of abdomen; Translations: [Peritonitis, unspecified] Episodic Residual codes; unclassified (12 sources) Obstructive sleep apnea syndrome; Translations: [Obstructive sleep apnea (adult) (pediatric)] Onset: 04-07-2011 03-08-2017 Chronic Residual codes; unclassified (1 source) Menopause present; Translations: [Menopause] Chronic Residual codes; unclassified (20 sources) Sleep apnea; Translations: [Sleep apnea, unspecified] Onset: 02-12-2016 06-24-2020 Chronic Residual codes; unclassified (7 sources) Hypersomnia; Translations: [Hypersomnia, unspecified] 07-29-2022 Chronic Residual codes; unclassified (5 sources) Obstructive sleep apnea (adult) (pediatric); Translations: [Obstructive sleep apnea (adult)(pediatric)] Onset: 01-11-2024 11-03-2022 Chronic Residual codes; unclassified (1 source) Sleep apnea, unspecified; Translations: [Unspecified sleep apnea] 02-23-2023 Chronic Residual codes; unclassified (2 sources) Apnea; Translations: [Obstructive sleep apnea (adult) (pediatric)] Onset: 03-08-2017 05-14-2022 Chronic Residual codes; unclassified (8 sources) Submandibular salivary gland swelling; Translations: [Edema, unspecified] 03-28-2021 Episodic Residual codes; unclassified (8 sources) History of hernia repair; Translations: [Other specified postprocedural states] 03-31-2021 Episodic Residual codes; unclassified (8 sources) Non-menopausal hot flash; Translations: [Flushing] 06-12-2020 Episodic Residual codes; unclassified (1 source) Family history of polyp of colon; Translations: [Family history of colonic polyps] 02-10-2023 Episodic Residual codes; unclassified (2 sources) Tobacco user; Translations: [Tobacco use] 08-11-2024 Episodic Screening and history of mental health and substance abuse codes (9 sources) Tobacco smoking behavior - finding; Translations: [...] Spondylosis; intervertebral disc disorders; other back problems (8 sources) Neck pain; Translations: [Cervicalgia] 10-25-2018 Episodic Substance-related disorders (20 sources) Nicotine dependence, cigarettes, uncomplicated; Translations: [Nicotine dependence] Onset: 09-22-2017 12-18-2018 Chronic Syncope (11 sources) Syncope; Translations: [Syncope and collapse] Onset: 02-15-2025 02-15-2025 Episodic Thyroid disorders (20 sources) Hypothyroidism, unspecified; Translations: [Hypothyroidism] Onset: 05-20-2015 05-20-2015 Chronic Unclassified (2 sources) Sleep apnea, unspecified; Translations: [Sleep apnea, unspecified] Onset: 09-22-2017 Unclassified (1 source) Unknown / UNK(Unknown) Onset: 03-07-2018 Past or Other Problems Problem Classification Problem Date Documented Da te Episodic/Chronic Abdominal hernia (20 sources) Incisional hernia; Translations: [Incisional hernia without obstruction or gangrene] Onset: 06-24-2020 06-24-2020 Episodic Abdominal pain (20 sources) Unspecified abdominal pain; Translations: [Left inguinal pain] Onset: 09-22-2017 06-24-2020 Episodic Allergic reactions (6 sources) Allergy status to other drugs, medicaments and biological substances status; Translations: [Allergy status to narcotic agent status] Onset: 09-22-2017 Episodic Fluid and electrolyte disorders (13 sources) Hypokalemia; Translations: [Hypokalemia] Onset: 12-17-2018 Resolved: 12-18-2018 12-28-2018 Episodic Inflammatory diseases of female pelvic organs (2 sources) Female pelvic inflammatory disease, unspecified; Translations: [Female pelvic inflammatory disease, unspecified] Onset: 09-22-2017 Episodic Mood disorders (9 sources) Mood disorders Onset: 01-11-2024 01-11-2024 Nonspecific chest pain (4 sources) Precordial pain; Translations: [Precordial pain] Onset: 12-17-2018 Resolved: 12-18-2018 12-18-2018 Episodic Other aftercare (2 sources) skilled nursing (current) use of aspirin; Translations: [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) use of aspirin] Onset: 09-22-2017 Episodic Other circulatory disease (4 sources) Low blood pressure; Translations: [Hypotension, unspecified] Onset: [...] cervix and uterus] Onset: 09-22-2017 Episodic Unclassified (9 sources) Onset: 01-11-2024 01-11-2024 Results Test Name Value Interpretation Reference Range Facility AMB CARD Physician Progress Noteon 03-21-2025 AMB CARD Physician Progress Note JUAN OLSEN DOB:1960 Registration Date:03/21/2025 Assessment/Plan Patient is a 65-year-old female with a history of WARREN, former smoker, hypertension, and type 2 diabetes mellitus presenting for follow-up of syncope. This Visit Diagnosis Hypertension I10 Ordered: AMB Follow - Up Appt Amb, 03/21/2025 08:48:00 EDT, As Needed AMB Office/Outpt Est Pt Mod MDM / 30 min [id number], 03/21/2025 08:48:00 EDT, Hypertension / WARREN (obstructive sleep apnea) / Syncope WARREN (obstructive sleep apnea) G47.33 - Strongly recommended resuming regular nightly CPAP use for WARREN management and emphasized importance of using CPAP throughout the night. Ordered: AMB Follow - Up Appt Amb, 03/21/2025 08:48:00 EDT, As Needed AMB Office/Outpt Est Pt Mod MDM / 30 min [id number], 03/21/2025 08:48:00 EDT, Hypertension / WARREN (obstructive sleep apnea) / Syncope Smoker F17.210 - Patient has quit smoking for 7 months; reinforced importance of continued abstinence. Syncope R55 - Cardiac workup including nuclear stress test and echocardiogram normal; cardiac etiology for syncope less likely but not fully excluded pending event monitor results. - Awaiting event monitor report; will contact patient with results and further recommendations as indicated. Ordered: AMB Follow - Up Appt Amb, 03/21/2025 08:48:00 EDT, As Needed AMB Office/Outpt Est Pt Mod MDM / 30 min [id number], 03/21/2025 08:48:00 EDT, Hypertension / WARREN (obstructive sleep apnea) / Syncope Chief Complaint go over testing History of Present Illness Disclaimer: The content of this note was generated by an artificial intelligence (AI) language model version 25.Q3.0.0 The patient is a 65-year-old female with a history of syncope, hypertension, and obstructive sleep apnea, presenting to review recent cardiac testing and event monitoring. Syncope and Associated Symptoms The patient reports ongoing weakness and chest heaviness, which have improved but persist, especially with prolonged standing. She has not experienced dizziness or passing out since her last visit. She continues to experience shortness of breath. Recent cardiac testing, including a nuclear stress test and echocardiogram, showed normal results. Results from an event monitor are pending. She is scheduled to see a neurologist in May and states that prior brain tests have not identified a cause for her symptoms. Obstructive Sleep Apnea and Smoking History The patient has a history of obstructive sleep apnea and owns a CPAP machine but does not use it regularly, reporting no perceived benefit. Family notes she often removes the CPAP during the night. She quit smoking seven months ago, in August, after a significant history of tobacco use. Hypertension Her blood pressure at the visit was 128/78 mmHg, indicating current good control. There is no mention of antihypertensive medication use or recent changes. Medication Reconciliation What How Much When Instructions Unchanged buPROPion (BuPROPion (Eqv-Wellbutrin SR) 150 mg/ 12 hours oral tablet, extended release) 60 EA, 0 Refill(s), TAKE 1 TABLET BY MOUTH TWICE DAILY TO HELP STOP SMOKING Unchanged cetirizine (cetirizine 10 mg oral tablet) Oral 10 Unknown, 0 Refill(s), Take 1 tablet (10 mg) by mouth once daily. Unchanged dicyclomine (dicyclomine 20 mg oral tablet) Oral TWICE A DAY 20 Unknown, 0 Refill(s), Take 1 tablet (20 mg) by mouth 2 times daily for 10 days. Unchanged DULoxetine (DULoxetine 30 mg oral delayed release capsule) 30 EA, 0 Refill(s), TAKE 1 CAPSULE BY MOUTH ONCE DAILY Unchanged hydrochlorothiazide-l isinopril (hydrochlorothiazide- lisinopril 12.5 mg-20 mg oral tablet) 30 EA, 0 Refill(s), TAKE 1 TABLET BY MOUTH ONCE DAILY Unchanged levothyroxine (levothyroxine 150 mcg (0.15 mg) oral tablet) 90 EA, 0 Refill(s), TAKE 1 TABLET BY MOUTH ONCE DAILY Unchanged lisinopril (lisinopril 20 mg oral tablet) 1 Tabs Oral DAILY Unchanged metFORMIN = Glucophage (metFORMIN 500 mg oral tablet) 60 EA, 0 Refill(s), TAKE 1 TABLET BY MOUTH TWICE DAILY Unchanged metroNIDAZOLE (metroNIDAZOLE 250 mg oral tablet) 42 EA, 0 Refill(s), TAKE 1 TABLET BY MOUTH THREE TIMES DAILY FOR 14 DAYS Unchanged multivitamin (B-Complex SR) Oral 1 Unknown, 0 Refill(s), Take 1 tablet by mouth once daily. Unchanged trazodone = Desyrel (traZODone 50 mg oral tablet) 30 EA, 0 Refill(s), TAKE 1 TABLET BY MOUTH AT BEDTIME FOR SLEEP Cardiac History No qualifying data available. Physical Exam Neck: No lymphadenopathy or jugular venous distention (JVD). Carotid arteries auscultation: No bruits. Cardiovascular: Cardiac auscultation: Regular rate and rhythm, no murmurs. Respiratory: Lung auscultation: Clear to auscultation bilaterally. Vitals & Measurements Temperature Temporal (F): 98.3 degF (03/21/25 08:37:00) Apical Heart Rate: 81 bpm (03/21/25 08:37:00) Height/Length Measured: 155 cm (03/21/25 08:37:00) Weight Measured: 82 kg (03/21/25 08:37:00) (more content not included)... [facility] Discharge Educationon 2024 Discharge Education Mental Health and Psychology Quit Smoking: How Medicines Can Help (02:40) Your health professional recommends that you watch this short online health video. Learn how other people quit smoking by using nicotine replacement and other medicines. Purpose: Models three approaches to using nicotine replacement and other medicines to quit smoking. Goal: The user will learn how nicotine replacement and other medicines can help with quitting smoking. How to watch the video Scan the QR code OR Visit the website https://hwi.se/r/Hgyq 60lqhnqg5 Current as of: June 09, 2021 Content Version: 13.3 ? [employer]. Care instructions adapted under license by your healthcare professional. If you have questions about a medical condition or this instruction, always ask your healthcare professional. [employer] disclaims any warranty or liability for your use of this information. [facility] Provider Letter - Ambulatory on 03-21-2025 Provider Letter - Ambulatory GLENDY ANDERSON, [address] [facility] [address] [place] [address] RE: JUAN OLSEN - 1960 Dear GLENDY ANDERSON This document is confidential and intended solely for the use of the individual or entity to which they are addressed. If you are not the named addressee, please disregard and do not disseminate, distribute or copy this information. If you are not the intended recipient you are notified that any disclosure of this information and its contents are strictly prohibited. If you have any questions about this document, please contact the office. Sincerely, MICHAEL CASSIDY, [facility] The following document(s) were included in the letter: March 21, 2025 08:31:43 EDT - (03/21/2025) Cardiology Follow Up Note [facility] NM CARDIAC PERF STRESS/PHARM on 03-16-2025 NM CARDIAC PERF STRESS/PHARM * * *Final Report* * * DATE OF EXAM: Mar 16 2025 10:52AM GRAY 0006 - NM CARDIAC PERF STRESS/PHARM / PROCEDURE REASON: R55 Syncope OUTSIDE ORDER * * * * Physician Interpretation * * * * Stress Palletizer Report: [facility] Date of service: 03/16/2025 8:05:20 AM Supervising physician: Ata Betts MD PATIENT: Name: MRS. JUAN OLSEN Age: 65 years Gender: F The supervising physician was in the department and immediately available. * * * Final * * * -------- PATIENT: Name: MRS. JUAN OLSEN Age: 65 years Gender: F CONCLUSIONS: 1. SPECT Perfusion Study: Normal. 2. There is no scintigraphic evidence for inducible ischemia. 3. No evidence of scarred myocardium. 4. Left ventricle is normal in size. 5. This is a low risk scan. LVEF % 61 Prior Study Comparison No prior nuclear cardiology exam available for comparison. Nuclear Med Report:1-Day Gated SPECT Myocardial Perfusion with Regadenoson Stress: Myocardial perfusion imaging was performed at rest 30 minutes following the IV injection of the radiotracer. The patient received 0.4 mg of regadenoson, via rapid IV push, immediately followed by radiotracer IV. Gated post stress tomographic imaging was performed 30 to 60 minutes later. See administered radiotracer and doses below. [facility] Date of service: 03/16/2025 8:05:20 AM Ordering Physician: RACHELLE CLEVELAND. Requesting Physician: Indication: Syncope/Presycope Interpreting physician: Ezra Garcia MD Height: 152.40 cm BSA: 1.81 m? Weight: 77.11 kg BMI: 33.2 kg/m? CT Dose-Length Product(DLP): 35.0 mGy * cm. CT Dose Reduction Employed: Yes. Exam Type: Rest Stress Radiopharm: Tc-99m Tetrofosmin Tc-99m Tetrofosmin Dosage(mCi): 13.7 35.4 Atten Correction: not performed performed Stress Agent: Regadenoson 0.4mg Supply provided from [facility] Resting Blood Press: 200/98 mmHg Image Quality The overall study imaging quality was deemed to be good. FINDINGS: LVEF: 61 % LEFT VENTRICLE The left ventricle is normal in size. Stress Test Findings: There is no scintigraphic evidence for inducible ischemia. There is no evidence of scarring. * * * Final * * * -------- NM CTAC Report: [facility] Date of service: 03/16/2025 8:05:20 AM CTAC interpreting physician: Tom Mari MD PATIENT: Name: MRS. JUAN OLSEN Age: 65 years Gender: F 1. Incidental Findings from limited non-diagnostic CTAC: - No distinct coronary calcifications. * * * Final * * * -------- Stress ECG Report: [facility] Date of service: 03/16/2025 8:05:20 AM Ordering physician: RACHELLE CLEVELAND personnel specialist: Lois Rangel Military Personnel Specialist: Maddison Staley Interpreting physician: Ata eBtts MD Patient name: MRS. JUAN OLSEN Age: 65 years Gender: F Height: 152.40 cm BSA: 1.81 m? Weight: 77.11 kg BMI: 33.2 kg/m? Indication: Syncope / near-syncope Stress ECG Conclusion: Conclusion: Normal Stress ECG Summary: The patient's resting heart rate was 64 bpm and blood pressure was 200/98 mmHg. The test was terminated due to end of protocol. Other symptoms during the test included SOB, dizziness and headache. The maximum heart rate was 75 bpm, which is 48% of the predicted heart rate for age. Peak blood pressure was 180/90 mmHg. The double product achieved was [address]. Medications: Last Used LISINOPRIL and HCTZ 24 Hours Resting ECG: Normal Sinus Rhythm Symptoms at rest: No symptoms Pharamcologic Protocol: Regadenoson Stress Exercise Table: +-----+--+---+---+ Stage HR SYS TAI +-----+--+---+---+ 1 74 +-----+--+---+---+ 2 75 180 90 +-----+--+---+---+ 3 71 +-----+--+---+---+ 4 72 178 96 +-----+--+---+---+ +-----+--+---+---+ HR SYS TAI +-----+--+---+---+ Final 75 180 90 +-----+--+---+---+ Recovery Table: +------+ +-- +---+---+ Stage Time (min) HR SYS TAI +------+ +-- +---+---+ 1 1.0 66 213 110 +------+ +-- +---+---+ 2 2.0 70 196 100 +------+ +-- +---+---+ 3 3.0 68 196 94 +------+ +-- +---+---+ 4 4.0 68 194 102 +------+ +-- +---+---+ Stress Observations: Resting HR: 64 bpm Peak HR: 75 bpm (48% MPHR) Resting BP: 200 / 98 mmHg Peak BP: 180 / 90 mmHg Rate Pressure Product (RPP): 67037 Stress Exercise Observations: Reason for test termination: end of protocol (more content not included)... [facility] 03-15-2025 [facility] Telephone (CDLBME) JUAN OLSEN ([id number]) 1960 F Date Time Provider Department 03/15/25 RADHA WRIGHTMarvin During your visit today, we recorded the following information about you: Allergies As of Date: 03/15/2025 Noted Allergy Reaction HYDROCODONE-ACETAMINO PHEN 03/02/2016 2 - Rash PENICILLINS 03/02/2016 2 - Rash TOMATOES 06/11/2020 8 - GI Upset Date Reviewed: 07/23/2023 Reviewed by: Miranda Levin RN - Fully Assessed Prescriptions as of 04/05/2025 - metFORMIN (GLUCOPHAGE) 500 mg tablet Take 500 mg by mouth daily with breakfast. - ethinyl estradiol, testosterone (CPD) Comments for [...] once daily. Problem List As Of Date 03/15/2025 Noted Resolved Hypotension [I95.9] 12/17/2018 12/18/2018 Precordial chest pain [R07.2] 12/17/2018 12/18/2018 Elevated lactic acid level [R79.89] 12/17/2018 12/18/2018 Hypokalemia [E87.6] 12/17/2018 12/18/2018 Essential hypertension [I10] 12/17/2018 Acquired hypothyroidism [E03.9] 12/17/2018 Nicotine use disorder, F17.2 [F17.200] 12/18/2018 Obesity, Class I, BMI 30-34.9 [E66.811] 12/18/2018 Hyperlipidemia, unspecified [E78.5] 02/12/2016 Sleep apnea, unspecified [G47.30] 02/12/2016 Incisional hernia, without obstruction or gangr*06/24/2020 Left groin pain [R10.32] 06/24/2020 Abdominal pain [R10.9] 01/16/2022 Diverticulitis of small intestine without perfo*01/17/2022 Encounter Status:Closed by RADHA WRIGHT on 04/05/25 [facility] MR BRAIN WO IV CONTRASTon MR BRAIN WO IV CONTRAST Interpreted By: Char Montoya, STUDY: MR BRAIN WO IV CONTRAST INDICATION: Signs/Symptoms:SYNCOP E COMPARISON: None. ACCESSION NUMBER(S): [id number] ORDERING CLINICIAN: GINA GHOSH TECHNIQUE: Multi-planar multi-sequential MR imaging of the brain was performed without intravenous contrast. FINDINGS: No acute infarction, intracranial hemorrhage or mass. No hydrocephalus. No extra-axial fluid collections. The skull base flow voids are present. The visualized intraorbital contents are normal. The imaged portions of the paranasal sinuses are clear. Trace bilateral mastoid effusions. The visualized osseous structures, soft tissues and partially visualized parotid glands appear normal. IMPRESSION: Unremarkable MRI of the brain. Signed by: Char Montoya 03/12/2025 8:59 AM Dictation workstation: [id number] [facility] AMB CARD Physician Progress Noteon 02-28-2025 AMB CARD Physician Progress Note JUAN OLSEN DOB:1960 Registration Date:02/28/2025 Assessment/Plan Patient is a 65-year-old female with hypertension, type 2 diabetes, and a history of tobacco use, presenting for evaluation of recurrent syncope. This Visit Diagnosis Hypertension I10 Ordered: AMB Echo Transthorc 2D w/spect/color dopplr [id number], 02/28/2025, Syncope, No instructions, Order for future visit, Hypertension / WARREN (obstructive sleep apnea) / Syncope / Type 2 diabetes mellitus AMB Ext ECG recording, 8 - 15 d, interp [id number], 02/28/2025 09:54:00 EDT, 02/28/2025 09:54:00 EDT, Hypertension / WARREN (obstructive sleep apnea) / Syncope / Type 2 diabetes mellitus AMB Extended Holter 7d-15d Connect/disconnect [id number], 02/28/2025 09:54:00 EDT, 02/28/2025 09:54:00 EDT, Hypertension / WARREN (obstructive sleep apnea) / Syncope / Type 2 diabetes mellitus AMB Follow - Up Appt Amb, 02/28/2025 09:54:00 EDT, 4 weeks AMB Office/Outpt New Pt Low MDM / 30 min 33771, 02/28/2025 09:54:00 EDT, Hypertension / WARREN (obstructive sleep apnea) / Syncope / Type 2 diabetes mellitus WARREN (obstructive sleep apnea) G47.33 - History of WARREN with prior CPAP intolerance and conflicting diagnostic results; recommended repeat sleep study to clarify diagnosis and guide management. Ordered: AMB Echo Transthorc 2D w/spect/color dopplr [id number], 02/28/2025, Syncope, No instructions, Order for future visit, Hypertension / WARREN (obstructive sleep apnea) / Syncope / Type 2 diabetes mellitus AMB Ext ECG recording, 8 - 15 d, interp [id number], 02/28/2025 09:54:00 EDT, 02/28/2025 09:54:00 EDT, Hypertension / WARREN (obstructive sleep apnea) / Syncope / Type 2 diabetes mellitus AMB Extended Holter 7d-15d Connect/disconnect [id number], 02/28/2025 09:54:00 EDT, 02/28/2025 09:54:00 EDT, Hypertension / WARREN (obstructive sleep apnea) / Syncope / Type 2 diabetes mellitus AMB Follow - Up Appt Amb, 02/28/2025 09:54:00 EDT, 4 weeks AMB Office/Outpt New Pt Low MDM / 30 min 17717, 02/28/2025 09:54:00 EDT, Hypertension / WARREN (obstructive sleep apnea) / Syncope / Type 2 diabetes mellitus Syncope R55 - Recurrent syncope with one episode associated with transient cyanosis and unresponsiveness; etiology unclear, differential includes cardiac arrhythmia and neurologic causes; risk factors include hypertension, type 2 diabetes, former tobacco use, and strong family history of heart disease. - Ordered 2-week ambulatory environmental services tech to evaluate for arrhythmia. - Ordered transthoracic echocardiogram to assess cardiac structure and function. - Ordered nuclear stress test to evaluate for ischemia. - Patient will follow up with neurology for further evaluation of possible neurologic causes. - Will review results of cardiac and neurologic workup at follow-up visit after completion of testing. Ordered: AMB Echo Transthorc 2D w/spect/color dopplr [id number], 02/28/2025, Syncope, No instructions, Order for future visit, Hypertension / WARREN (obstructive sleep apnea) / Syncope / Type 2 diabetes mellitus AMB Ext ECG recording, 8 - 15 d, interp [id number], 02/28/2025 09:54:00 EDT, 02/28/2025 09:54:00 EDT, Hypertension / WARREN (obstructive sleep apnea) / Syncope / Type 2 diabetes mellitus AMB Extended Holter 7d-15d Connect/disconnect [id number], 02/28/2025 09:54:00 EDT, 02/28/2025 09:54:00 EDT, Hypertension / WARREN (obstructive sleep apnea) / Syncope / Type 2 diabetes mellitus AMB Follow - Up Appt Amb, 02/28/2025 09:54:00 EDT, 4 weeks AMB Office/Outpt New Pt Low MDM / 30 min [id number], 02/28/2025 09:54:00 EDT, Hypertension / WARREN (obstructive sleep apnea) / Syncope / Type 2 diabetes mellitus Type 2 diabetes mellitus E11.9 Ordered: AMB Echo Transthorc 2D w/spect/color dopplr [id number], 02/28/2025, Syncope, No instructions, Order for future visit, Hypertension / WARREN (obstructive sleep apnea) / Syncope / Type 2 diabetes mellitus AMB Ext ECG recording, 8 - 15 d, interp [id number], 02/28/2025 09:54:00 EDT, 02/28/2025 09:54:00 EDT, Hypertension / WARREN (obstructive sleep apnea) / Syncope / Type 2 diabetes mellitus AMB Extended Holter 7d-15d Connect/disconnect [id number], 02/28/2025 09:54:00 EDT, 02/28/2025 09:54:00 EDT, Hypertension / WARREN (obstructive sleep apnea) / Syncope / Type 2 diabetes mellitus AMB Follow - Up Appt Amb, 02/28/2025 09:54:00 EDT, 4 weeks AMB Office/Outpt New Pt Low MDM / 30 min [id number], 02/28/2025 09:54:00 EDT, Hypertension / WARREN (obstructive sleep apnea) / Syncope / Type 2 diabetes mellitus Chief Complaint HTN, DM History of Present Illness Disclaimer: The content of this note was generated by an artificial intelligence (AI) language model version 25.Q3.0.0 The patient is a 65-year-old female with a history of hypertension, type 2 diabetes mellitus, and prior tobacco use, presenting for evaluation following recent episodes of syncope. Syncope The patient reports two episodes of syncope within the past year. The most recent episode occurred while having dinner with friends; she felt well initially, had one alcohol (more content not included)... [facility] Discharge Educationon 2024 Discharge Education Ear, Nose and Throat Learning About CPAP for Sleep Apnea What is CPAP? CPAP is a small machine that you use at home every night while you sleep. It increases air pressure in your throat to keep your airway open. When you have sleep apnea, this can help you sleep better, feel better, and avoid future health problems. CPAP stands for continuous positive airway pressure. The CPAP machine will have one of the following: ? A mask that covers your nose and mouth ? A mask that covers your nose only ? A nasal pillow that covers only the openings of your nose Why is it done? CPAP is usually the best treatment for obstructive sleep apnea. It is the first treatment choice and the most widely used. CPAP: ? Helps you have more normal sleep, so you feel less sleepy and more alert during the daytime. ? May help keep heart failure or other heart problems from getting worse. ? May help lower your blood pressure. If you have a bed partner, they may also sleep better when you use a CPAP. That's because you aren't snoring or restless. Your doctor may suggest CPAP if you have: ? Moderate to severe sleep apnea. ? Sleep apnea and coronary artery disease (CAD). ? Sleep apnea and heart failure. What are the side effects? Some people who use CPAP have: ? A dry or stuffy nose and a sore throat. ? Irritated skin on the face. ? Bloating. How can you care for yourself? If using CPAP is not comfortable, or if you have certain side effects, work with your doctor to fix them. Here are some things you can try: ? Be sure the mask, nasal mask, or nasal pillow fits well. ? See if your doctor can adjust the pressure of your CPAP. ? If your nose or mouth is dry, set the machine to deliver warmer or wetter air. Or try using a humidifier. ? If your nose is runny or stuffy, talk to your doctor about using a decongestant medicine or steroid nasal spray. Be safe with medicines. Read and follow all instructions on the label. Do not use the medicine longer than the label says. ? Your doctor may also help you with problems like swallowing air, bloating, or claustrophobia. Talk to your doctor if you're still having problems. If these things don't help, you might try a different type of machine. Where can you learn more? Go to https://www.[employer]net/patientEd Enter X266 in the search box to learn more about Learning About CPAP for Sleep Apnea. Current as of: October 08, 2021 Content Version: 13.3 ? [employer]. Care instructions adapted under license by your healthcare professional. If you have questions about a medical condition or this instruction, always ask your healthcare professional. [employer] disclaims any warranty or liability for your use of this information. [facility] Provider Letter - Ambulatory on 02-28-2025 Provider Letter - Ambulatory GLENDY ANDERSON, [address] [facility] [address] [place] [address] RE: JUAN OLSEN - 1960 Dear GLENDY ANDERSON This document is confidential and intended solely for the use of the individual or entity to which they are addressed. If you are not the named addressee, please disregard and do not disseminate, distribute or copy this information. If you are not the intended recipient you are notified that any disclosure of this information and its contents are strictly prohibited. If you have any questions about this document, please contact the office. Sincerely, MICHAEL CASSIDY, [facility] The following document(s) were included in the letter: February 28, 2025 09:57:47 EDT - (02/28/2025) Cardiology Office New Patient Note [facility] CBC W/Diff, Automatedon 01-31 Absolute Lymph 2.00 X10 3/uL Normal 0.83-4.51 [facility] Comment on above: Performed By: #### L 501.2450, L501.9520, L100.0100, L501.2400, L500.4100, L500.4050 #### [facility] [address] [place], [address] Absolute Neut 4.1 X10 3/uL Normal 2.0-7.7 [facility] Comment on above: Performed By: #### L 501.2450, L501.9520, L100.0100, L501.2400, L500.4100, L500.4050 #### [facility] [address] [place], [address] Basophils/100 WBC (Bld) 1.0 % Normal 0-1 [facility] Comment on above: Performed By: #### L 501.2450, L501.9520, L100.0100, L501.2400, L500.4100, L500.4050 #### [facility] [address] [place], [address] Eosinophils/100 WBC (Bld) 2.8 % Normal 0-5 [facility] Comment on above: Performed By: #### L 501.2450, L501.9520, L100.0100, L501.2400, L500.4100, L500.4050 #### [facility] [address] [place], [address] Erythrocyte distribution width (RBC) [Ratio] 13.6 % Normal 11.6-14.6 [facility] Comment on above: Performed By: #### L 501.2450, L501.9520, L100.0100, L501.2400, L500.4100, L500.4050 #### [facility] [address] [place], [address] Hematocrit (Bld) [Volume fraction] 41.5 % Normal 37-47 [facility] Comment on above: Performed By: #### L 501.2450, L501.9520, L100.0100, L501.2400, L500.4100, L500.4050 #### [facility] [address] [place], [address] Hemoglobin (Bld) [Mass/Vol] 14.3 g/dL Normal 12.0-15.0 [facility] Comment on above: Performed By: #### L 501.2450, L501.9520, L100.0100, L501.2400, L500.4100, L500.4050 #### [facility] [address] [place], [address] IG% 0.100 Normal 0.0-0.9 [facility] Comment on above: Result Comment: IG% - Immature Granulocytes (promyelocytes, myelocytes and metamyelocytes) > 1% indicates that a LEFT SHIFT is Present. Performed By: #### L 501.2450, L501.9520, L100.0100, L501.2400, L500.4100, L500.4050 #### [facility] [address] [place], [address] Lymphocytes/100 WBC (Bld) 29.3 % Normal 19-41 [facility] Comment on above: Performed By: #### L 501.2450, L501.9520, L100.0100, L501.2400, L500.4100, L500.4050 #### [facility] [address] [place], [address] MCH (RBC) [Entitic mass] 31.2 pg Normal 27.0-32.0 [facility] Comment on above: Performed By: #### L 501.2450, L501.9520, L100.0100, L501.2400, L500.4100, L500.4050 #### [facility] [address] [place], [address] MCHC (RBC) [Mass/Vol] 34.5 g/dL Normal 32-36 [facility] Comment on above: Performed By: #### L 501.2450, L501.9520, L100.0100, L501.2400, L500.4100, L500.4050 #### [facility] [address] [place], [address] MCV (RBC) [Entitic vol] 90.4 fL Normal 81-99 [facility] Comment on above: Performed By: #### L 501.2450, [id number], L100.0100, L501.2400, L500.4100, L500.4050 #### [facility] [address] [place], [address] Monocytes/100 WBC (Bld) 6.3 % Normal 0-10 [facility] Comment on above: Performed By: #### L 501.2450, [id number], L100.0100, L501.2400, L500.4100, L500.4050 #### [facility] [address] [place], [address] Neutrophils/100 WBC (Bld) 60.5 % Normal 47-70 [facility] Comment on above: Performed By: #### L 501.2450, L501.9520, L100.0100, L501.2400, L500.4100, L500.4050 #### [facility] [address] [place], [address] Nucleated RBC (Bld) [#/Vol] 0 10*3/uL Normal 0-5 [facility] Comment on above: Performed By: #### L 501.2450, [id number], L100.0100, L501.2400, L500.4100, L500.4050 #### [facility] [address] [place], [address] Platelet mean volume (Bld) [Entitic vol] 10.1 fL Normal 6.2-12.0 [facility] Comment on above: Performed By: #### L 501.2450, L501.9520, L100.0100, L501.2400, L500.4100, L500.4050 #### [facility] [address] [place], [address] Platelets (Bld) [#/Vol] 331 10*3/uL Normal 150-450 [facility] Comment on above: Performed By: #### L 501.2450, [id number], L100.0100, L501.2400, L500.4100, L500.4050 #### [facility] [address] [place], [address] RBC (Bld) [#/Vol] 4.59 10*6/uL Normal 4.2-5.4 [facility] Comment on above: Performed By: #### L 501.2450, L501.9520, L100.0100, L501.2400, L500.4100, L500.4050 #### [facility] [address] [place], [address] RDW SD 45.1 fl High 35.1-43.9 [facility] Comment on above: Performed By: #### L 501.2450, L501.9520, L100.0100, L501.2400, L500.4100, L500.4050 #### [facility] [address] [place], [address] WBC (Bld) [#/Vol] 6.8 10*3/uL Normal 4.4-11.0 [facility] Comment on above: Performed By: #### L 501.2450, [id number], L100.0100, L501.2400, L500.4100, L500.4050 #### [facility] [address] [place], [address] Comprehensive Metabolic [facility] 02-20-2025 Albumin [Mass/Vol] 4.5 g/dL Normal 3.4-4.8 [facility] Comment on above: Performed By: #### L 501.2450, L501.9520, L100.0100, L501.2400, L500.4100, L500.4050 #### [facility] [address] [place], [address] Albumin/Globulin [Mass ratio] 1.6 {ratio} Normal 0.9-2.4 [facility] Comment on above: Performed By: #### L 501.2450, L501.9520, L100.0100, L501.2400, L500.4100, L500.4050 #### [facility] [address] [place], [address] ALK PHOS 74 U/L Normal 35-104 [facility] Comment on above: Performed By: #### L 501.2450, L501.9520, L100.0100, L501.2400, L500.4100, L500.4050 #### [facility] [address] [place], [address] ALT [Catalytic activity/Vol] 46 U/L High <=34 [facility] Comment on above: Performed By: #### L 501.2450, L501.9520, L100.0100, L501.2400, L500.4100, L500.4050 #### [facility] [address] [place], [address] AST [Catalytic activity/Vol] 28 U/L Normal <=31 [facility] Comment on above: Performed By: #### L 501.2450, L501.9520, L100.0100, L501.2400, L500.4100, L500.4050 #### [facility] [address] [place], [address] Bilirubin [Mass/Vol] 0.38 mg/dL Normal 0.00-1.30 [facility] Comment on above: Performed By: #### L 501.2450, L501.9520, L100.0100, L501.2400, L500.4100, L500.4050 #### [facility] [address] [place], [address] BUN/CRE 23.1 RATIO High 10-20 [facility] Comment on above: Performed By: #### L 501.2450, L501.9520, L100.0100, L501.2400, L500.4100, L500.4050 #### [facility] [address] [place], [address] Calcium [Mass/Vol] 10.0 mg/dL Normal 7.6-11.0 [facility] Comment on above: Performed By: #### L 501.2450, L501.9520, L100.0100, L501.2400, L500.4100, L500.4050 #### [facility] [address] [place], [address] Chloride [Moles/Vol] 105 mmol/L Normal 98-108 [facility] Comment on above: Performed By: #### L 501.2450, L501.9520, L100.0100, L501.2400, L500.4100, L500.4050 #### [facility] [address] [place], [address] CO2 [Moles/Vol] 23.9 mmol/L Normal 21.0-32.0 [facility] Comment on above: Performed By: #### L 501.2450, L501.9520, L100.0100, L501.2400, L500.4100, L500.4050 #### [facility] [address] [place], [address] Creatinine [Mass/Vol] 0.72 mg/dL Normal 0.70-1.20 [facility] Comment on above: Performed By: #### L 501.2450, L501.9520, L100.0100, L501.2400, L500.4100, L500.4050 #### [facility] [address] [place], [address] GAP 14 Normal 5-15 [facility] Comment on above: Performed By: #### L 501.2450, L501.9520, L100.0100, L501.2400, L500.4100, L500.4050 #### [facility] [address] [place], [address] GFR/1.73 sq M.predicted among non-blacks MDRD (S/P/Bld) [Vol rate/Area] 94 mL/min/{1.73_m2} Normal >60 [facility] Comment on above: Result Comment: mL/m in/1.73m2 CKD-EPI Creatinine Equation (2020) Performed By: #### L 501.2450, L501.9520, L100.0100, L501.2400, L500.4100, L500.4050 #### [facility] [address] [place], [address] Globulin (S) [Mass/Vol] 2.8 g/dL Normal 2.2-4.2 [facility] Comment on above: Performed By: #### L 501.2450, L501.9520, L100.0100, L501.2400, L500.4100, L500.4050 #### [facility] [address] [place], [address] Glucose [Mass/Vol] 90 mg/dL Normal 70-99 [facility] Comment on above: Performed By: #### L 501.2450, L501.9520, L100.0100, L501.2400, L500.4100, L500.4050 #### [facility] [address] [place], [address] Potassium [Moles/Vol] 4.7 mmol/L Normal 3.3-5.1 [facility] Comment on above: Performed By: #### L 501.2450, L501.9520, L100.0100, L501.2400, L500.4100, L500.4050 #### [facility] [address] [place], [address] Sodium [Moles/Vol] 143 mmol/L Normal 133-145 [facility] Comment on above: Performed By: #### L 501.2450, L501.9520, L100.0100, L501.2400, L500.4100, L500.4050 #### [facility] [address] [place], [address] T PROT 7.2 g/dL Normal 5.9-8.4 [facility] Comment on above: Performed By: #### L 501.2450, L501.9520, L100.0100, L501.2400, L500.4100, L500.4050 #### [facility] [address] [place], [address] Urea nitrogen [Mass/Vol] 17 mg/dL Normal 4-19 [facility] Comment on above: Performed By: #### L 501.2450, L501.9520, L100.0100, L501.2400, L500.4100, L500.4050 #### [facility] [address] [place], [address] Free T3on 02-20-2025 Free T3 [Mass/Vol] 2.7 pg/mL Normal 2.18-3.98 [facility] Comment on above: Performed By: #### L 501.2450, L501.9520, L100.0100, L501.2400, L500.4100, L500.4050 #### [facility] [address] [place], [address] Hemoglobin A1con 02-20-2025 HbA1c (Bld) [Mass fraction] 7.3 % High <=5.6 [facility] Comment on above: Result Comment: Norm al < 5.7 % Prediabetic 5.7 - 6.4 % Diabetic >or= 6.5 % Please note range changes. Performed By: #### L 501.2450, L501.9520, L100.0100, L501.2400, L500.4100, L500.4050 #### [facility] [address] [place], [address] Magnesiumon 02-20-2025 Magnesium [Mass/Vol] 2.3 mg/dL High 1.5-2.2 [facility] Comment on above: Performed By: #### L 501.2450, L501.9520, L100.0100, L501.2400, L500.4100, L500.4050 #### [facility] [address] [place], [address] Thyroid Stim Hormone (TSH)on 02-20-2025 TSH 2.630 uIU/mL Normal 0.300-4.200 [facility] Comment on above: Performed By: #### L 501.2450, L501.9520, L100.0100, L501.2400, L500.4100, L500.4050 #### [facility] [address] [place], [address] Absolute lymphocyte countOrd ered By: Glendy Anderson on 02-19-2025 Lymphocytes Auto (Unsp spec) [#/Vol] 2.00 10*3/uL 0.83-4.51 [facility] Absolute neutrophil countOrd ered By: Glendy Anderson on 02-19-2025 Neutrophils (Bld) [#/Vol] 4.1 10*3/uL 2.0-7.7 [facility] Anion gap in Serum or Plasma Ordered By: Glendy Anderson on 02-19-2025 Anion gap [Moles/Vol] 14 mmol/L 5-15 [facility] Automated lymphocyte count a s percentage of total leukocytesOrdered By: Glendy Anderson on 02-19-2025 Lymphocytes/100 WBC Auto (Unsp spec) 29.3 % 19-41 [facility] BUN/creatinine ratioOrdered By: Glendy Anderson on 02-19-2025 Urea nitrogen/Creatinine [Mass ratio] 23.1 mg/mg High 10-20 [facility] Basophil percentageOrdered B y: Glendy Anderson on 02-19-2025 Basophils/100 WBC (Bld) 1.0 % 0-1 [facility] Bilirubin, totalOrdered By: Glendy Anderson on 02-19-2025 Bilirubin [Mass/Vol] 0.38 mg/dL 0.00-1.30 [facility] Carbon dioxide, total [Moles /volume] in Central venous bloodOrdered By: Glendy Anderson on 02-19-2025 CO2 [Moles/Vol] 23.9 mmol/L 21.0-32.0 [facility] Chloride assayOrdered By: Do ra Anderson on 02-19-2025 Chloride [Moles/Vol] 105 mmol/L 98-108 [facility] Eosinophil percentageOrdered By: Glendy Anderson on 02-19-2025 Eosinophils/100 WBC (Bld) 2.8 % 0-5 [facility] Erythrocyte distribution wid th ratioOrdered By: Glendy Anderson on 02-19-2025 Erythrocyte distribution width (RBC) [Ratio] 13.6 % 11.6-14.6 [facility] Erythrocyte distribution wid th standard deviationOrdered By: Glendy Anderson on 02-19-2025 Erythrocyte distribution width (RBC) [Ratio] 45.1 fl High 35.1-43.9 [facility] Free [id number] By: Glendy vega on 02-19-2025 Free T3 [Mass/Vol] 2.7 pg/mL 2.18-3.98 [facility] Glomerular filtration rate ( GFR) estimation/1.73 sq m using serum, plasma, or whole bOrdered By: Glendy Anderson on 02-19-2025 GFR/1.73 sq M.predicted among non-blacks MDRD (S/P/Bld) [Vol rate/Area] 94 mL/min/{1.73_m2} >60 [facility] Comment on above: mL/min/1.73m2 CKD-EP I Creatinine Equation (2020) Hematocrit Auto (Bld) [Volum e fraction]Ordered By: Glendy Anderson on 02-19-2025 Hematocrit (Bld) [Volume fraction] 41.5 % 37-47 [facility] Hemoglobin A1c percentageOrd ered By: Glendy Anderson on 02-19-2025 HbA1c (Bld) [Mass fraction] 7.3 % High <5.7 [facility] Comment on above: Normal < 5.7 % Predi abetic 5.7 - 6.4 % Diabetic >or= 6.5 % Please note range changes. Hemoglobin measurementOrdere d By: Glendy Anderson on 02-19-2025 Hemoglobin (Bld) [Mass/Vol] 14.3 g/dL 12.0-15.0 [facility] Immature granulocytes/100 WB C Auto (Bld)Ordered By: Glendy Anderson on 02-19-2025 Immature granulocytes/100 WBC (Bld) 0.100 % 0.0-0.9 [facility] Comment on above: IG% - Immature Granu locytes (promyelocytes, myelocytes and metamyelocytes) > 1% indicates that a LEFT SHIFT is Present. Laboratory - Chemistry and C hemistry - challengeOrdered By: Glendy Anderson on 02-19-2025 AST [Catalytic activity/Vol] 28 U/L <32 [facility] MCV (mean corpuscular volume ) determinationOrdered By: Glendy Anderson on 02-19-2025 MCV (RBC) [Entitic vol] 90.4 fL 81-99 [facility] Magnesium measurement (mass/ volume)Ordered By: Glendy Anderson on 02-19-2025 Magnesium (Unsp spec) [Mass/Vol] 2.3 mg/dL High 1.5-2.2 [facility] Mean corpuscular hemoglobin (MCH) determinationOrdered By: Glendy Anderson on 02-19-2025 MCH (RBC) [Entitic mass] 31.2 pg 27.0-32.0 [facility] Mean corpuscular hemoglobin concentration (MCHC) determinationOrdered By: Glendy Anderson on 02-19-2025 MCHC (RBC) [Mass/Vol] 34.5 g/dL 32-36 [facility] Mean platelet volume determi nationOrdered By: Glendy Anderson on 02-19-2025 Platelet mean volume (Bld) [Entitic vol] 10.1 fL 6.2-12.0 [facility] Monocyte percentageOrdered B y: Glendy Anderson on 02-19-2025 Monocytes/100 WBC (Bld) 6.3 % 0-10 [facility] Neutrophil percentageOrdered By: Glendy Anderson on 02-19-2025 Neutrophils/100 WBC (Bld) 60.5 % 47-70 [facility] Nucleated red blood cell per centageOrdered By: Glendy Anderson on 02-19-2025 Nucleated RBC/100 WBC (Bld) [Ratio] 0 % 0-5 [facility] Platelet countOrdered By: Do ra Anderson on 02-19-2025 Platelets (Bld) [#/Vol] 331 10*3/uL 150-450 [facility] Potassium measurement (mass/ volume)Ordered By: Glendy Anderson on 02-19-2025 Potassium (Unsp spec) [Mass/Vol] 4.7 mmol/L 3.3-5.1 [facility] RBC Auto (Bld) [#/Vol]Ordere d By: Glendy Anderson on 02-19-2025 RBC (Bld) [#/Vol] 4.59 10*6/uL 4.2-5.4 [facility] Serum creatinine measurement (mass/volume)Ordered By: Glendy Andesron on 02-19-2025 Creatinine [Mass/Vol] 0.72 mg/dL 0.70-1.20 [facility] Serum globulin measurementOr dered By: Glendy Anderson on 02-19-2025 Globulin (S) [Mass/Vol] 2.8 g/dL 2.2-4.2 [facility] Serum glucose measurement (m ass/volume)Ordered By: Glendy Anderson on 02-19-2025 Glucose [Mass/Vol] 90 mg/dL 70-99 [facility] Serum or plasma alanine mead otransferase (ALT) measurementOrdered By: Glendy Anderson on 02-19-2025 ALT [Catalytic activity/Vol] 46 U/L High <35 [facility] Serum or plasma albumin shawna urement (mass/volume)Ordered By: Glendy Anderson on 02-19-2025 Albumin [Mass/Vol] 4.5 g/dL 3.4-4.8 [facility] Serum or plasma albumin/glob ulin mass ratioOrdered By: Glendy Anderson on 02-19-2025 Albumin/Globulin [Mass ratio] 1.6 {ratio} 0.9-2.4 [facility] Serum or plasma alkaline shavonne sphatase measurementOrdered By: Glendy Anderson on 02-19-2025 ALP [Catalytic activity/Vol] 74 U/L 35-104 [facility] Serum or plasma calcium shawna urement (mass/volume)Ordered By: Glendy Anderson on 02-19-2025 Calcium [Mass/Vol] 10.0 mg/dL 7.6-11.0 [facility] Serum or plasma urea nitroge n measurement (mass/volume)Ordered By: Glendy Anderson on 02-19-2025 Urea nitrogen [Mass/Vol] 17 mg/dL 4-19 [facility] Sodium levelOrdered By: Glendy Anderson on 02-19-2025 Sodium [Moles/Vol] 143 mmol/L 133-145 [facility] TSH DL <= 0.005 mIU/L QnOrde red By: Glendy Anderson on 02-19-2025 TSH Qn 2.630 uIU/mL 0.300-4.200 [facility] Total proteinOrdered By: Melvin Anderson on 02-19-2025 Protein [Mass/Vol] 7.2 g/dL 5.9-8.4 [facility] White blood cell (WBC) count Ordered By: Glendy Anderson on 02-19-2025 WBC (Bld) [#/Vol] 6.8 10*3/uL 4.4-11.0 [facility] CBC W Auto Differential pane l (Bld)on 02-15-2025 Basophils (Bld) [#/Vol] 0.08 10*3/uL [facility] Basophils/100 WBC (Bld) 1.3 % 0.0 - 2.0 % [facility] Eosinophils (Bld) [#/Vol] 0.21 10*3/uL [facility] Eosinophils/100 WBC (Bld) 3.4 % 0.0 - 6.0 % [facility] Erythrocyte distribution width (RBC) [Ratio] 13.3 % 11.5 - 14.5 % [facility] Hematocrit (Bld) [Volume fraction] 39.2 % 36.0 - 46.0 % [facility] Hemoglobin (Bld) [Mass/Vol] 14.3 g/dL 12.0 - 16.0 g/dL [facility] Immature granulocytes (Bld) [#/Vol] 0.01 10*3/uL [facility] Immature granulocytes/100 WBC (Bld) 0.2 % 0.0 - 0.9 % [facility] Comment on above: Immature Granulocyte Count (IG) includes promyelocytes, myelocytes and metamyelocytes but does not include bands. Percent differential counts (%) should be interpreted in the context of the absolute cell counts (cells/UL). Interpretation and review of laboratory results Abnormal [facility] Lymphocytes (Bld) [#/Vol] 1.59 10*3/uL [facility] Lymphocytes/100 WBC (Bld) 25.9 % 13.0 - 44.0 % [facility] MCH (RBC) [Entitic mass] 31.4 pg 26.0 - 34.0 pg [facility] MCHC (RBC) [Mass/Vol] 36.5 g/dL High 32.0 - 36.0 g/dL [facility] MCV (RBC) [Entitic vol] 86 fL 80 - 100 fL [facility] Monocytes (Bld) [#/Vol] 0.48 10*3/uL [facility] Monocytes/100 WBC (Bld) 7.8 % 2.0 - 10.0 % [facility] Neutrophils (Bld) [#/Vol] 3.78 10*3/uL [facility] Comment on above: Percent differential counts (%) should be interpreted in the context of the absolute cell counts (cells/uL). Neutrophils/100 WBC (Bld) 61.4 % 40.0 - 80.0 % [facility] Nucleated RBC/100 WBC (Bld) [Ratio] 0.0 % [facility] Platelets (Bld) [#/Vol] 302 10*3/uL [facility] RBC (Bld) [#/Vol] 4.56 10*6/uL [facility] WBC (Bld) [#/Vol] 6.2 10*3/uL [facility] Basophils (Bld) [#/Vol] 0.08 x10*3/uL Normal 0.00-0.10 [facility] Comment on above: Performed By: #### 5 7021-8 #### MORGAN BEAZ ([id number]) [facility] ([facility]) [address] [place] [address] Basophils/100 WBC (Bld) 1.3 % Normal 0.0-2.0 [facility] Comment on above: Performed By: #### 5 7021-8 #### MORGAN BAEZ ([id number]) [facility] ([facility]) [address] [place] [address] Eosinophils (Bld) [#/Vol] 0.21 x10*3/uL Normal 0.00-0.70 [facility] Comment on above: Performed By: #### 5 7021-8 #### MORGAN BAEZ ([id number]) [facility] ([facility]) [address] [place] [address] Eosinophils/100 WBC (Bld) 3.4 % Normal 0.0-6.0 [facility] Comment on above: Performed By: #### 5 7021-8 #### MORGAN BAEZ ([id number]) [facility] ([facility]) [address] [place] [address] Erythrocyte distribution width (RBC) [Ratio] 13.3 % Normal 11.5-14.5 [facility] Comment on above: Performed By: #### 5 7021-8 #### MORGAN BAEZ ([id number]) [facility] ([facility]) [address] [place] [address] Hematocrit (Bld) [Volume fraction] 39.2 % Normal 36.0-46.0 [facility] Comment on above: Performed By: #### 5 7021-8 #### MORGAN BAEZ ([id number]) [facility] ([facility]) [address] [place] [address] Hemoglobin (Bld) [Mass/Vol] 14.3 g/dL Normal 12.0-16.0 [facility] Comment on above: Performed By: #### 5 7021-8 #### MORGAN BAEZ ([id number]) [facility] ([facility]) [address] [place] [address] Immature granulocytes (Bld) [#/Vol] 0.01 x10*3/uL Normal 0.00-0.70 [facility] Comment on above: Performed By: #### 5 7021-8 #### MORGAN BAEZ ([id number]) [facility] ([facility]) [address] [place] [address] Immature granulocytes/100 WBC (Bld) 0.2 % Normal 0.0-0.9 [facility] Comment on above: Result Comment: Jannet ture Granulocyte Count (IG) includes promyelocytes, myelocytes and metamyelocytes but does not include bands. Percent differential counts (%) should be interpreted in the context of the absolute cell counts (cells/UL). Performed By: #### 5 7021-8 #### MORGAN BAEZ ([id number]) [facility] ([facility]) [address] [place] [address] Lymphocytes (Bld) [#/Vol] 1.59 x10*3/uL Normal 1.20-4.80 [facility] Comment on above: Performed By: #### 5 7021-8 #### MORGAN BAEZ ([id number]) [facility] ([facility]) [address] [place] [address] Lymphocytes/100 WBC (Bld) 25.9 % Normal 13.0-44.0 [facility] Comment on above: Performed By: #### 5 7021-8 #### MORGAN BAEZ ([id number]) [facility] ([facility]) [address] [place] [address] MCH (RBC) [Entitic mass] 31.4 pg Normal 26.0-34.0 [facility] Comment on above: Performed By: #### 5 7021-8 #### MORGAN BAEZ ([id number]) [facility] ([facility]) [address] [place] [address] MCHC (RBC) [Mass/Vol] 36.5 g/dL High 32.0-36.0 [facility] Comment on above: Performed By: #### 5 7021-8 #### MORGAN BAEZ ([id number]) [facility] ([facility]) [address] [place] [address] MCV (RBC) [Entitic vol] 86 fL Normal 80-[address] [facility] Comment on above: Performed By: #### 5 7021-8 #### MORGAN BAEZ ([id number]) [facility] ([facility]) [address] [place] [address] [id number] Monocytes (Bld) [#/Vol] 0.48 x10*3/uL Normal 0.10-1.00 [facility] Comment on above: Performed By: #### 5 7021-8 #### MORGAN BAEZ ([id number]) [facility] ([facility]) [address] [place] [address] [id number] Monocytes/100 WBC (Bld) 7.8 % Normal 2.0-10.[address] [facility] Comment on above: Performed By: #### 5 7021-8 #### MORGAN BAEZ ([id number]) [facility] ([facility]) [address] [place] [address] [phone] Neutrophils (Bld) [#/Vol] 3.78 x10*3/uL Normal 1.20-7.70 [facility] Comment on above: Result Comment: Perc ent differential counts (%) should be interpreted in the context of the absolute cell counts (cells/uL). Performed By: #### 5 7021-8 #### MORGAN BAEZ ([id number]) [facility] ([facility]) [address] [place] [address] [id number] Neutrophils/100 WBC (Bld) 61.4 % Normal 40.0-80.0 [facility] Comment on above: Performed By: #### 5 7021-8 #### MORGAN BAEZ ([id number]) [facility] ([facility]) [address] [place] [id number] Nucleated RBC/100 WBC (Bld) [Ratio] 0.0 /100 WBCs Normal 0.0-0.0 [facility] Comment on above: Performed By: #### 5 7021-8 #### MORGAN BAEZ ([id number]) [facility] ([facility]) [address] [place] [address] Platelets (Bld) [#/Vol] 302 x10*3/uL Normal 150-450 [facility] Comment on above: Performed By: #### 5 7021-8 #### MORGAN BAEZ ([id number]) [facility] ([facility]) [address] [place] [address] RBC (Bld) [#/Vol] 4.56 x10*6/uL Normal 4.00-5.20 [facility] Comment on above: Performed By: #### 5 7021-8 #### MORGAN BAEZ ([id number]) [facility] ([facility]) [address] [place] [address] WBC (Bld) [#/Vol] 6.2 x10*3/uL Normal 4.4-11.3 [facility] Comment on above: Performed By: #### 5 7021-8 #### MORGAN BAEZ ([id number]) [facility] ([facility]) [address] [place] [address] Comprehensive metabolic 2000 panelon 02-15-2025 Albumin BCP dye [Mass/Vol] 4.3 g/dL 3.4 - 5.0 g/dL [facility] ALP [Catalytic activity/Vol] 66 U/L 33 - 136 U/L [facility] ALT With P-5'-P [Catalytic activity/Vol] 44 U/L 7 - 45 U/L [facility] Comment on above: Patients treated wit h Sulfasalazine may generate falsely decreased results for ALT. Anion gap [Moles/Vol] 13 mmol/L 10 - 20 mmol/L [facility] AST With P-5'-P [Catalytic activity/Vol] 24 U/L 9 - 39 U/L [facility] Bilirubin [Mass/Vol] 0.5 mg/dL 0.0 - 1 .2 mg/dL [facility] Calcium [Mass/Vol] 9.4 mg/dL 8.6 - 10. 3 mg/dL [facility] Chloride [Moles/Vol] 103 mmol/L 98 - 10 7 mmol/L [facility] CO2 [Moles/Vol] 23 mmol/L 21 - 32 mmol/L [facility] Creatinine [Mass/Vol] 0.79 mg/dL 0.50 - 1.05 mg/dL [facility] GFR/1.73 sq M.predicted among non-blacks MDRD (S/P/Bld) [Vol rate/Area] 84 mL/min/{1.73_m2} - PINF [facility] Comment on above: Calculations of jean-claude mated GFR are performed using the 2020 CKD-EPI Study Refit equation without the race variable for the IDMS-Traceable creatinine methods. https://jasn.asnjournals.org/content/early//ASN.2020 997596 Glucose [Mass/Vol] 312 mg/dL High 74 - 99 mg/dL [facility] Interpretation and review of laboratory results Abnormal [facility] Potassium [Moles/Vol] 3.4 mmol/L Low 3.5 - 5.3 mmol/L [facility] Protein [Mass/Vol] 6.9 g/dL 6.4 - 8.2 g/dL [facility] Sodium [Moles/Vol] 136 mmol/L 136 - 145 mmol/L [facility] Urea nitrogen [Mass/Vol] 12 mg/dL 6 - 23 mg/dL [facility] Albumin BCP dye [Mass/Vol] 4.3 g/dL Normal 3.4-5.0 [facility] Comment on above: Performed By: #### 2 4323-8 #### MORGAN BAEZ ([id number]) [facility] ([facility]) [address] [place], [place] [id number] ALP [Catalytic activity/Vol] 66 U/L Normal 33-136 [facility] Comment on above: Performed By: #### 2 4323-8 #### MORGAN BAEZ ([id number]) [facility] ([facility]) [address] [place], [place] [id number] ALT With P-5'-P [Catalytic activity/Vol] 44 U/L Normal 7-45 [facility] Comment on above: Result Comment: Tiffany ents treated with Sulfasalazine may generate falsely decreased results for ALT. Performed By: #### 2 4323-8 #### MORGAN BAEZ ([id number]) [facility] ([facility]) [address] [place] [address] Anion gap [Moles/Vol] 13 mmol/L Normal 10-20 [facility] Comment on above: Performed By: #### 2 4323-8 #### MORGAN BAEZ ([id number]) [facility] ([facility]) [address] [place] [address] AST With P-5'-P [Catalytic activity/Vol] 24 U/L Normal 9-39 [facility] Comment on above: Performed By: #### 2 4323-8 #### MORGAN BAEZ ([id number]) [facility] ([facility]) [address] [place] [address] Bilirubin [Mass/Vol] 0.5 mg/dL Normal 0.0-1.2 [facility] Comment on above: Performed By: #### 2 432-8 #### MORGAN BAEZ ([id number]) [facility] ([facility]) [address] [place] [address] Calcium [Mass/Vol] 9.4 mg/dL Normal 8.6-10.3 [facility] Comment on above: Performed By: #### 2 4323-8 #### MORGAN BAEZ ([id number]) [facility] ([facility]) [address] [place] [address] Chloride [Moles/Vol] 103 mmol/L Normal 98-107 [facility] Comment on above: Performed By: #### 2 4323-8 #### MORGAN BAEZ ([id number]) [facility] ([facility]) [address] [place] [address] CO2 [Moles/Vol] 23 mmol/L Normal 21-32 [facility] Comment on above: Performed By: #### 2 4323-8 #### MORGAN BAEZ ([id number]) [facility] ([facility]) [address] [place] [address] Creatinine [Mass/Vol] 0.79 mg/dL Normal 0.50-1.05 [facility] Comment on above: Performed By: #### 2 4323-8 #### MORGAN BAEZ ([id number]) [facility] ([facility]) [address] [place] [address] Glomerular filtration rate/1.73 sq M.predicted 84 mL/min/1.73m*2 Normal >60 [facility] Comment on above: Result Comment: Calc ulations of estimated GFR are performed using the 2020 CKD-EPI Study Refit equation without the race variable for the IDMS-Traceable creatinine methods. https://jasn.asnjournals.org/content/early//ASN.2020 611909 Performed By: #### 2 4323-8 #### MORGAN BAEZ ([id number]) [facility] ([facility]) [address] [place] [address] Glucose [Mass/Vol] 312 mg/dL High 74-99 [facility] Comment on above: Performed By: #### 2 432-8 #### MORGAN BAEZ ([id number]) [facility] ([facility]) [address] [place] [address] Potassium [Moles/Vol] 3.4 mmol/L Low 3.5-5.3 [facility] Comment on above: Performed By: #### 2 4323-8 #### MORGAN BAEZ ([id number]) [facility] ([facility]) [address] [place] [address] Protein [Mass/Vol] 6.9 g/dL Normal 6.4-8.2 [facility] Comment on above: Performed By: #### 2 4323-8 #### MORGAN BAEZ ([id number]) [facility] ([facility]) [address] [place] [address] Sodium [Moles/Vol] 136 mmol/L Normal 136-145 [facility] Comment on above: Performed By: #### 2 4323-8 #### MORGAN BAEZ ([id number]) [facility] ([facility]) [address] [place] [address] Urea nitrogen [Mass/Vol] 12 mg/dL Normal 6-23 [facility] Comment on above: Performed By: #### 2 4323-8 #### MORGAN BAEZ ([id number]) [facility] ([facility]) [facility] [place] [address] ECG 12-LEADon 02-15-2025 ECG 12-LEAD Ventricular Rate 76 Atrial Rate 76 P-R Interval 172 QRS Duration 140 Q-T Interval 440 QTC Calculation(Bazett) 495 P Tiro 65 R Tiro 19 T Tiro 127 QRS Count 13 Q Onset 209 P Onset 123 P Offset 178 T Offset 429 QTC Fredericia 475 Diagnosis Normal sinus rhythm Left bundle branch block Abnormal ECG When compared with ECG of 15-FEB-2025 07:59, (unconfirmed) Sinus rhythm has replaced Atrial fibrillation Vent. rate has decreased BY 68 BPM Left bundle branch block is now Present See ED provider note for full interpretation and clinical correlation Confirmed by Giovanna Montes ([id number]) on 02/19/2025 12:49:56 PM Normal [facility] Magnesiumon 02-15-2025 Magnesium [Mass/Vol] 1.95 mg/dL 1.60 - 2.40 mg/dL [facility] Magnesium [Mass/Vol] 1.95 mg/dL Normal 1.60-2.40 [facility] Comment on above: Performed By: #### 1 9123-9 #### MORGAN BAEZ ([id number]) [facility] ([facility]) [address] [place], [place] [address] Magnesium [Mass/Vol]on 02-15 Interpretation and review of laboratory results Normal [facility] No Panel Informationon 02-15 [facility] Tropinin I.cardiac panel Hig h sensitivity methodon 02-15-2025 Interpretation and review of laboratory results Normal [facility] Less than 99th percentile of normal range [...] performed using a different testing methodology at [facility] than at other [facility]. Direct result comparisons should only be made within the same method. [facility] Interpretation and review of laboratory results Normal [facility] Less than 99th percentile of normal range [...] performed using a different testing methodology at [facility] than at other [facility]. Direct result comparisons should only be made within the same method. [facility] Troponin I, High Sensitivity , Initialon 02-15-2025 Tropinin I.cardiac panel High sensitivity method 3 ng/L 0 - 13 ng/L [facility] Troponin I.cardiac panelon 0 02-15-2025 Tropinin I.cardiac panel High sensitivity method 4 ng/L Normal 0-13 [facility] Comment on above: Order Comment: Less than [...] performed using a different testing methodology at [facility] than at other [facility]. Direct result comparisons should only be made within the same method. Performed By: #### 8 9577-1 #### MORA SASHA ([id number]) [facility] ([facility]) [address] [place], [place] [address] Tropinin I.cardiac panel High sensitivity method 3 ng/L Normal 0-13 [facility] Comment on above: Order Comment: Less than [...] performed using a different testing methodology at [facility] than at other [facility]. Direct result comparisons should only be made within the same method. Performed By: #### 8 9577-1 #### MORA SASHA ([id number]) [facility] ([facility]) [address] [place], [place] [address] Troponin, High Sensitivity, 1 Houron 02-15-2025 Tropinin I.cardiac panel High sensitivity method 4 ng/L 0 - 13 ng/L [facility] XR CHEST 1 VIEWon 02-15-2025 XR CHEST 1 VIEW Interpreted By: Prasanth Barbour, STUDY: XR CHEST 1 VIEW; 02/15/2025 6:58 pm INDICATION: Signs/Symptoms:syncop e. COMPARISON: None. ACCESSION NUMBER(S): [id number] ORDERING CLINICIAN: MILLY FRANCOIS FINDINGS: Slight low lung volumes. Streaky left basilar airspace opacities, likely subsegmental atelectasis. Mild diffuse interstitial prominence, likely interstitial edema. Normal heart size. No acute osseous abnormality. IMPRESSION: 1. Mild diffuse interstitial prominence, likely interstitial edema. 2. Streaky left basilar airspace opacities, likely subsegmental atelectasis. Signed by: Prasanth Barbour 02/15/2025 7:27 PM Dictation workstation: [id number] [facility] XR Chest Single viewon 02-15 1. Mild diffuse interstitial prominence, likely interstitial edema. 2. Streaky left basilar airspace opacities, likely subsegmental atelectasis. Signed by: Prasanth Barbour 02/15/2025 7:27 PM Dictation workstation: [id number] Interpreted By: Prasanth Barbour, STUDY: XR CHEST 1 VIEW; 02/15/2025 6:58 pm INDICATION: Signs/Symptoms:syncop e. COMPARISON: None. ACCESSION NUMBER(S): [id number] ORDERING CLINICIAN: MILLY FRANCOIS FINDINGS: Slight low lung volumes. Streaky left basilar airspace opacities, likely subsegmental atelectasis. Mild diffuse interstitial prominence, likely interstitial edema. Normal heart size. No acute osseous abnormality. [facility] MM[facility]AL Prasanth Barbour, DO - 02/15/2025 Interpreted By: Prasanth Barbour, STUDY: XR CHEST 1 VIEW; 02/15/2025 6:58 pm INDICATION: Signs/Symptoms:syncop e. COMPARISON: None. ACCESSION NUMBER(S): [id number] ORDERING CLINICIAN: MILLY FRANCOIS FINDINGS: Slight low lung volumes. Streaky left basilar airspace opacities, likely subsegmental atelectasis. Mild diffuse interstitial prominence, likely interstitial edema. Normal heart size. No acute osseous abnormality. IMPRESSION: 1. Mild diffuse interstitial prominence, likely interstitial edema. 2. Streaky left basilar airspace opacities, likely subsegmental atelectasis. Signed by: Prasanth Barbour 02/15/2025 7:27 PM Dictation workstation: [id number] [facility] Work Phone: Radiology Study observation (narrative) [facility] Work Phone: XR Chest Single viewOrdered By: Prasanth Barbour on 02-15-2025 [facility] Work Phone: CBC W/Diff, Automatedon REACTIVE LYMPH RARE Normal [facility] Comment on above: Performed By: #### L 501.2450, L501.9520, L100.0100, L501.2400, L500.4100, L500.4050 #### [facility] [address] [place], [address] PLT EST SLT DEC Normal ADEQ [facility] Comment on above: Performed By: #### L 501.2450, L501.9520, L100.0100, L501.2400, L500.4100, L500.4050 #### [facility] [address] [place], [place], [id number] Hemoglobin A1con 02-02-2025 HbA1c (Bld) [Mass fraction] 7.6 % High <=5.6 [facility] Comment on above: Result Comment: Norm al < 5.7 % Prediabetic 5.7 - 6.4 % Diabetic >or= 6.5 % Please note range changes. Performed By: #### L 501.2450, L501.9520, L100.0100, L501.2400, L500.4100, L500.4050 #### [facility] [address] [place], [place], [id number] Absolute lymphocyte countOrd ered By: Glendy Anderson on 02-01-2025 Lymphocytes Auto (Unsp spec) [#/Vol] 0.68 10*3/uL Low 0.83-4.51 [facility] Absolute neutrophil countOrd ered By: Glendy Anderson on 02-01-2025 Neutrophils (Bld) [#/Vol] 2.1 10*3/uL 2.0-7.7 [facility] Anion gap in Serum or Plasma Ordered By: Glendy Anderson on 02-01-2025 Anion gap [Moles/Vol] 13 mmol/L 5-15 [facility] Automated lymphocyte count a s percentage of total leukocytesOrdered By: Glendy Anderson on 02-01-2025 Lymphocytes/100 WBC Auto (Unsp spec) 21.1 % 19-41 [facility] BUN/creatinine ratioOrdered By: Glendy Anderson on 02-01-2025 Urea nitrogen/Creatinine [Mass ratio] 20.1 mg/mg High 10-20 [facility] Basophil percentageOrdered B y: Glendy Anderson on 02-01-2025 Basophils/100 WBC (Bld) 1.2 % High 0-1 [facility] Bilirubin, totalOrdered By: Glendy Anderson on 02-01-2025 Bilirubin [Mass/Vol] 0.40 mg/dL 0.00-1.30 [facility] Carbon dioxide, total [Moles /volume] in Central venous bloodOrdered By: Glendy Anderson on 02-01-2025 CO2 [Moles/Vol] 23.4 mmol/L 21.0-32.0 [facility] Chloride assayOrdered By: Do ra Anderson on 02-01-2025 Chloride [Moles/Vol] 101 mmol/L 98-108 [facility] Comprehensive Metabolic Prof ilon 02-01-2025 A/G UNABLE TO CALCULATE Low 0.9-2.4 [facility] Comment on above: Performed By: #### L 501.2450, L501.9520, L100.0100, L501.2400, L500.4100, L500.4050 #### [facility] [address] [place], [place], [id number] Albumin [Mass/Vol] g/dL Low 3.4-4.8 [facility] Comment on above: Performed By: #### L 501.2450, L501.9520, L100.0100, L501.2400, L500.4100, L500.4050 #### [facility] [address] [place], [address] ALK PHOS 85 U/L Normal 35-104 [facility] Comment on above: Performed By: #### L 501.2450, L501.9520, L100.0100, L501.2400, L500.4100, L500.4050 #### [facility] [address] [place], [address] ALT [Catalytic activity/Vol] 44 U/L High <=34 [facility] Comment on above: Performed By: #### L 501.2450, L501.9520, L100.0100, L501.2400, L500.4100, L500.4050 #### [facility] [address] [place], [address] AST [Catalytic activity/Vol] 28 U/L Normal <=31 [facility] Comment on above: Result Comment: Hemo lysis present, Results??could be affected. ?? Performed By: #### L 501.2450, L501.9520, L100.0100, L501.2400, L500.4100, L500.4050 #### [facility] [address] [place], [address] Bilirubin [Mass/Vol] 0.40 mg/dL Normal 0.00-1.30 [facility] Comment on above: Performed By: #### L 501.2450, L501.9520, L100.0100, L501.2400, L500.4100, L500.4050 #### [facility] [address] [place], [address] BUN/CRE 20.1 RATIO High 10-20 [facility] Comment on above: Performed By: #### L 501.2450, L501.9520, L100.0100, L501.2400, L500.4100, L500.4050 #### [facility] [address] [place], [address] Calcium [Mass/Vol] 10.2 mg/dL Normal 7.6-11.0 [facility] Comment on above: Performed By: #### L 501.2450, L501.9520, L100.0100, L501.2400, L500.4100, L500.4050 #### [facility] [address] [place], [address] Chloride [Moles/Vol] 101 mmol/L Normal 98-108 [facility] Comment on above: Performed By: #### L 501.2450, L501.9520, L100.0100, L501.2400, L500.4100, L500.4050 #### [facility] [address] [place], [address] CO2 [Moles/Vol] 23.4 mmol/L Normal 21.0-32.0 [facility] Comment on above: Performed By: #### L 501.2450, L501.9520, L100.0100, L501.2400, L500.4100, L500.4050 #### [facility] [address] [place], [address] Creatinine [Mass/Vol] 0.74 mg/dL Normal 0.70-1.20 [facility] Comment on above: Performed By: #### L 501.2450, L501.9520, L100.0100, L501.2400, L500.4100, L500.4050 #### [facility] [address] [place], [address] GAP 13 Normal 5-15 [facility] Comment on above: Performed By: #### L 501.2450, L501.9520, L100.0100, L501.2400, L500.4100, L500.4050 #### [facility] [address] [place], [address] GFR/1.73 sq M.predicted among non-blacks MDRD (S/P/Bld) [Vol rate/Area] 91 mL/min/{1.73_m2} Normal >60 [facility] Comment on above: Result Comment: mL/m in/1.73m2 CKD-EPI Creatinine Equation (2020) Performed By: #### L 501.2450, L501.9520, L100.0100, L501.2400, L500.4100, L500.4050 #### [facility] [address] [place], [address] GLOB UNABLE TO CALCULATE Low 2.2-4.2 [facility] Comment on above: Performed By: #### L 501.2450, L501.9520, L100.0100, L501.2400, L500.4100, L500.4050 #### [facility] [address] [place], [address] Glucose [Mass/Vol] 214 mg/dL High 70-99 [facility] Comment on above: Performed By: #### L 501.2450, L501.9520, L100.0100, L501.2400, L500.4100, L500.4050 #### [facility] [address] [place], [address] Potassium [Moles/Vol] 4.4 mmol/L Normal 3.3-5.1 [facility] Comment on above: Result Comment: Hemo lysis present, Results??could be affected. ?? Performed By: #### L 501.2450, L501.9520, L100.0100, L501.2400, L500.4100, L500.4050 #### [facility] [address] [place], [address] Sodium [Moles/Vol] 138 mmol/L Normal 133-145 [facility] Comment on above: Performed By: #### L 501.2450, L501.9520, L100.0100, L501.2400, L500.4100, L500.4050 #### [facility] [address] [place], [address] T PROT 7.4 g/dL Normal 5.9-8.4 [facility] Comment on above: Performed By: #### L 501.2450, L501.9520, L100.0100, L501.2400, L500.4100, L500.4050 #### [facility] [address] [place], [address] Urea nitrogen [Mass/Vol] 15 mg/dL Normal 4-19 [facility] Comment on above: Performed By: #### L 501.2450, L501.9520, L100.0100, L501.2400, L500.4100, L500.4050 #### [facility] [address] [place], [address] Eosinophil percentageOrdered By: Glendy Anderson on 02-01-2025 Eosinophils/100 WBC (Bld) 4.7 % 0-5 [facility] Erythrocyte distribution wid th ratioOrdered By: Glendy Anderson on 02-01-2025 Erythrocyte distribution width (RBC) [Ratio] 13.2 % 11.6-14.6 [facility] Erythrocyte distribution wid th standard deviationOrdered By: Glendy Anderson on 02-01-2025 Erythrocyte distribution width (RBC) [Ratio] 42.8 fl 35.1-43.9 [facility] Glomerular filtration rate ( GFR) estimation/1.73 sq m using serum, plasma, or whole bOrdered By: Glendy Anderson on 02-01-2025 GFR/1.73 sq M.predicted among non-blacks MDRD (S/P/Bld) [Vol rate/Area] 91 mL/min/{1.73_m2} >60 [facility] Comment on above: mL/min/1.73m2 CKD-EP I Creatinine Equation (2020) Hematocrit Auto (Bld) [Volum e fraction]Ordered By: Glendy Anderson on 02-01-2025 Hematocrit (Bld) [Volume fraction] 44.1 % 37-47 [facility] Hemoglobin A1c percentageOrd ered By: Glendy Anderson on 02-01-2025 HbA1c (Bld) [Mass fraction] 7.6 % High <5.7 [facility] Comment on above: Normal < 5.7 % Predi abetic 5.7 - 6.4 % Diabetic >or= 6.5 % Please note range changes. Hemoglobin measurementOrdere d By: Glendy Anderson on 02-01-2025 Hemoglobin (Bld) [Mass/Vol] 15.3 g/dL High 12.0-15.0 [facility] Immature granulocytes/100 WB C Auto (Bld)Ordered By: Glendy Anderson on 02-01-2025 Immature granulocytes/100 WBC (Bld) 0.300 % 0.0-0.9 [facility] Comment on above: IG% - Immature Granu locytes (promyelocytes, myelocytes and metamyelocytes) > 1% indicates that a LEFT SHIFT is Present. Laboratory - Chemistry and C hemistry - challengeOrdered By: Glendy Anderson on 02-01-2025 AST [Catalytic activity/Vol] 28 U/L <32 [facility] Comment on above: Hemolysis present, R esults could be affected. MCV (mean corpuscular volume ) determinationOrdered By: Glendy Anderson on 02-01-2025 MCV (RBC) [Entitic vol] 88.4 fL 81-99 [facility] Mean corpuscular hemoglobin (MCH) determinationOrdered By: Glendy Anderson on 02-01-2025 MCH (RBC) [Entitic mass] 30.7 pg 27.0-32.0 [facility] Mean corpuscular hemoglobin concentration (MCHC) determinationOrdered By: Glendy Anderson on 02-01-2025 MCHC (RBC) [Mass/Vol] 34.7 g/dL 32-36 [facility] Mean platelet volume determi nationOrdered By: Glendy Anderson on 02-01-2025 Platelet mean volume (Bld) [Entitic vol] 11.1 fL 6.2-12.0 [facility] Monocyte percentageOrdered B y: Glendy Anderson on 02-01-2025 Monocytes/100 WBC (Bld) 6.2 % 0-10 [facility] Neutrophil percentageOrdered By: Glendy Anderson on 02-01-2025 Neutrophils/100 WBC (Bld) 66.5 % 47-70 [facility] Nucleated red blood cell per centageOrdered By: Glendy Anderson on 02-01-2025 Nucleated RBC/100 WBC (Bld) [Ratio] 0 % 0-5 [facility] Platelet countOrdered By: Do ra Anderson on 02-01-2025 Platelet count See comment 150-450 [facility] Comment on above: Please note: For [...] Platelets LM Ql (Bld) SLT DEC ADEQ [facility] Potassium measurement (mass/ volume)Ordered By: Glendy Anderson on 02-01-2025 Potassium (Unsp spec) [Mass/Vol] 4.4 mmol/L 3.3-5.1 [facility] Comment on above: Hemolysis present, R esults could be affected. RBC Auto (Bld) [#/Vol]Ordere d By: Glendy Anderson on 02-01-2025 RBC (Bld) [#/Vol] 4.99 10*6/uL 4.2-5.4 [facility] Serum creatinine measurement (mass/volume)Ordered By: Glendy Anderson on 02-01-2025 Creatinine [Mass/Vol] 0.74 mg/dL 0.70-1.20 [facility] Serum glucose measurement (m ass/volume)Ordered By: Glendy Anderson on 02-01-2025 Glucose [Mass/Vol] 214 mg/dL High 70-99 [facility] Serum or plasma alanine mead otransferase (ALT) measurementOrdered By: Glendy Anderson on 02-01-2025 ALT [Catalytic activity/Vol] 44 U/L High <35 [facility] Serum or plasma albumin shawna urement (mass/volume)Ordered By: Glendy Anderson on 02-01-2025 Albumin [Mass/Vol] g/dL Low 3.4-4.8 [facility] Serum or plasma albumin/glob ulin mass ratioOrdered By: Glendy Anderson on 02-01-2025 Albumin/Globulin [Mass ratio] UNABLE TO CALCULATE RATIO Low 0.9-2.4 [facility] Serum or plasma alkaline shavonne sphatase measurementOrdered By: Glendy Anderson on 02-01-2025 ALP [Catalytic activity/Vol] 85 U/L 35-104 [facility] Serum or plasma calcium shawna urement (mass/volume)Ordered By: Glendy Anderson on 02-01-2025 Calcium [Mass/Vol] 10.2 mg/dL 7.6-11.0 [facility] Serum or plasma urea nitroge n measurement (mass/volume)Ordered By: Glendy Anderson on 02-01-2025 Urea nitrogen [Mass/Vol] 15 mg/dL 4-19 [facility] Sodium levelOrdered By: Glendy Anderson on 02-01-2025 Sodium [Moles/Vol] 138 mmol/L 133-145 [facility] Total proteinOrdered By: Melvin Anderson on 02-01-2025 Protein [Mass/Vol] 7.4 g/dL 5.9-8.4 [facility] White blood cell (WBC) count Ordered By: Glendy Anderson on 02-01-2025 WBC (Bld) [#/Vol] 3.2 10*3/uL Low 4.4-11.0 [facility] CBC W Auto Differential pane l (Bld)Ordered By: Willie Alexander on 11-30-2024 Basophils (Bld) [#/Vol] 0.1 10*3/uL 0.0 - 0.2 10*3/uL [facility] Basophils/100 WBC (Bld) 1.3 % 0.0 - 2.0 % [facility] Eosinophils (Bld) [#/Vol] 0.2 10*3/uL 0.0 - 0.5 10*3/uL [facility] Eosinophils/100 WBC (Bld) 2.8 % 0.0 - 6.0 % [facility] Erythrocyte distribution width (RBC) [Ratio] 12.7 % 11.5 - 15.0 % [facility] Hematocrit (Bld) [Volume fraction] 38.7 % 35.0 - 47.0 % [facility] Hemoglobin (Bld) [Mass/Vol] 14.1 g/dL 11.7 - 16.0 g/dL [facility] Immature granulocytes (Bld) [#/Vol] 0 10*3/uL NINF - 0.1 10*3/uL [facility] Immature granulocytes/100 WBC (Bld) 0.2 % 0.0 - 2.0 % [facility] Interpretation and review of laboratory results Abnormal [facility] Lymphocytes (Bld) [#/Vol] 1.6 10*3/uL 1.0 - 4.3 10*3/uL [facility] Lymphocytes/100 WBC (Bld) 25.3 % 15.0 - 45.0 % [facility] MCH (RBC) [Entitic mass] 31.2 pg 26.0 - 34.0 pg [facility] MCHC (RBC) [Mass/Vol] 36.4 % High 30.5 - 36.0 % [facility] MCV (RBC) [Entitic vol] 85.6 fL 77.0 - 99.0 fL [facility] Monocytes (Bld) [#/Vol] 0.3 10*3/uL 0.0 - 0.9 10*3/uL [facility] Monocytes/100 WBC (Bld) 5.1 % 5.0 - 13.0 % [facility] Neutrophils (Bld) [#/Vol] 4.1 10*3/uL 1.8 - 7.5 10*3/uL [facility] Neutrophils/100 WBC (Bld) 65.3 % 38.0 - 82.0 % [facility] Nucleated RBC/100 WBC (Bld) [Ratio] 0 % [facility] Platelet mean volume (Bld) [Entitic vol] 9.5 fL 9.0 - 12.7 fL [facility] Comment on above: MPV is a calculated measurement using platelet volume ratio Platelets (Bld) [#/Vol] 282 10*3/uL 140 - 440 10*3/uL [facility] RBC (Bld) [#/Vol] 4.52 10*6/uL 3.80 - 5.2 0 10*6/uL [facility] WBC (Bld) [#/Vol] 6.3 10*3/uL 3.6 - 10.7 10*3/uL [facility] CBC WITH AUTO DIFFERENTIALon 11-30-2024 Basophils (Bld) [#/Vol] 0.1 10*3/uL Normal 0.0-0.2 [facility] Comment on above: Performed By: #### L [id number] #### Lead Driver: SUSHILA FREY ([id number]) [facility] [address] [place] [address] [place] Basophils/100 WBC (Bld) 1.3 % Normal 0.0-2.0 [facility] Comment on above: Performed By: #### L [id number] #### Lead Driver: SUSHILA FREY ([id number]) [facility] [place] [facility] ([facility]) [address] [place] [address] [place] Eosinophils (Bld) [#/Vol] 0.2 10*3/uL Normal 0.0-0.5 [facility] Comment on above: Performed By: #### L [id number] #### Lead Driver: SUSHILA FREY ([id number]) [facility] [place] [facility] ([employer]) [address] [place] [address] Eosinophils/100 WBC (Bld) 2.8 % Normal 0.0-6.0 [facility] Comment on above: Performed By: #### L [id number] #### Lead Driver: SUSHILA FREY ([id number]) [facility] [place] [facility] ([employer]) [address] [place] [address] Erythrocyte distribution width (RBC) [Ratio] 12.7 % Normal 11.5-15.0 [facility] Comment on above: Performed By: #### L [id number] #### Lead Driver: SUSHILA FREY ([id number]) [facility] [place] [facility] ([facility]) [address] [place] [address] Hematocrit (Bld) [Volume fraction] 38.7 % Normal 35.0-47.0 [facility] Comment on above: Performed By: #### L [id number] #### Lead Driver: SUSHILA FREY ([id number]) [facility] [place] [facility] ([facility]) [address] [place] [address] Hemoglobin (Bld) [Mass/Vol] 14.1 g/dL Normal 11.7-16.0 [facility] Comment on above: Performed By: #### L [id number] #### Lead Driver: SUSHILA FREY ([id number]) [facility] [place] [facility] ([facility]) [address] [place] [address] IMMATURE GRANS % 0.2 % Normal 0.0-2.0 [facility] Comment on above: Performed By: #### L [id number] #### Lead Driver: SUSHILA FREY ([id number]) [facility] [place] [facility] ([employer]) [address] [place] [address] IMMATURE GRANS ABSOLUTE 0.0 10*3/uL Normal <0.1 [facility] Comment on above: Performed By: #### L [id number] #### Lead Driver: SUSHILA FREY ([id number]) [facility] [place] [facility] ([facility]) [address] [place] [address] Lymphocytes (Bld) [#/Vol] 1.6 10*3/uL Normal 1.0-4.3 [facility] Comment on above: Performed By: #### L [id number] #### Lead Driver: SUSHILA FREY ([id number]) [facility] [place] [facility] ([facility]) [address] [place] [address] [place] Lymphocytes/100 WBC (Bld) 25.3 % Normal 15.0-45.0 [facility] Comment on above: Performed By: #### L [id number] #### Lead Driver: SUSHILA FREY ([id number]) [facility] [place] [facility] ([facility]) [address] [place] [address] MCH (RBC) [Entitic mass] 31.2 pg Normal 26.0-34.0 [facility] Comment on above: Performed By: #### L [id number] #### Lead Driver: SUSHILA FREY ([id number]) [facility] ([facility]) [address] [place] [address] MCHC 36.4 % High 30.5-36.0 [facility] Comment on above: Performed By: #### L [id number] #### Lead Driver: SUSHILA FREY ([id number]) [facility] ([facility]) [address] [place] [address] MCV (RBC) [Entitic vol] 85.6 fL Normal 77.0-99.0 [facility] Comment on above: Performed By: #### L [id number] #### Lead Driver: SUSHILA FREY ([id number]) [facility] ([facility]) [address] [place] [address] Monocytes (Bld) [#/Vol] 0.3 10*3/uL Normal 0.0-0.9 [facility] Comment on above: Performed By: #### L [id number] #### Lead Driver: SUSHILA FREY ([id number]) [facility] ([facility]) [address] [place] [address] [place] Monocytes/100 WBC (Bld) 5.1 % Normal 5.0-13.0 [facility] Comment on above: Performed By: #### L [id number] #### Lead Driver: SUSHILA FREY ([id number]) [facility] ([facility]) [address] [place] [address] [place] NEUTROPHILS ABSOLUTE 4.1 10*3/uL Normal 1.8-7.5 [facility] Comment on above: Performed By: #### L [id number] #### Lead Driver: SUSHILA FREY ([id number]) [facility] ([facility]) [address] [place] [address] [place] Neutrophils/100 WBC (Bld) 65.3 % Normal 38.0-82.0 [facility] Comment on above: Performed By: #### L [id number] #### Lead Driver: SUSHILA FREY ([id number]) [facility] [place] [facility] ([facility]) [address] [place] [address] NRBC 0.0 /100 WBCs Normal 0.0-2.0 [facility] Comment on above: Performed By: #### L [id number] #### Lead Driver: SUSHILA FREY ([id number]) [facility] [place] [facility] ([facility]) [address] [place] [address] Platelet mean volume (Bld) [Entitic vol] 9.5 fL Normal 9.0-12.7 [facility] Comment on above: Result Comment: MPV is a calculated measurement using platelet volume ratio Performed By: #### L [id number] #### Lead Driver: SUSHILA FREY ([id number]) [facility] [place] ([employer]) [address] [place] [address] [place] Platelets (Bld) [#/Vol] 282 10*3/uL Normal 140-440 [facility] Comment on above: Performed By: #### L [id number] #### Lead Driver: SUSHILA FREY ([id number]) [facility] [place] ([facility]) [address] [place] [address] [place] RBC (Bld) [#/Vol] 4.52 10*6/uL Normal 3.80-5.20 [facility] Comment on above: Performed By: #### L [id number] #### Lead Driver: SUSHILA FREY ([id number]) [facility] [place] ([facility]) [address] [place] [address] [place] WBC (Bld) [#/Vol] 6.3 10*3/uL Normal 3.6-10.7 [facility] Comment on above: Performed By: #### L [id number] #### Lead Driver: SUSHILA FREY ([id number]) [facility] [place] [facility]) [address] COMPREHENSIVE METABOLIC PANE Jimmy 11-30-2024 Albumin [Mass/Vol] 4.0 g/dL Normal 3.4-4.8 [facility] Comment on above: Performed By: #### L AB99, LAB17 #### Lead Driver: SUSHILA FREY ([id number]) [facility] [place] [facility] ([facility]) [address] ALP [Catalytic activity/Vol] 65 U/L Normal 40-150 [facility] Comment on above: Performed By: #### L AB99, LAB17 #### Lead Driver: SUSHILA FREY ([id number]) [facility] [place] [facility] ([employer]) [address] [place] [address] ALT [Catalytic activity/Vol] 34 U/L High <30 [facility] Comment on above: Performed By: #### L AB99, LAB17 #### Lead Driver: SUSHILA FREY ([id number]) [facility] [place] [facility] ([employer]) [address] [place] [address] Anion gap [Moles/Vol] 8 mmol/L Normal 3-13 [facility] Comment on above: Performed By: #### L AB99, LAB17 #### Lead Driver: SUSHILA FREY ([id number]) [facility] [place] [facility] ([employer]) [address] [place] [address] AST [Catalytic activity/Vol] 25 U/L Normal <34 [facility] Comment on above: Performed By: #### L AB99, LAB17 #### Lead Driver: SUSHILA FREY ([id number]) [facility] [place] [facility] ([facility]) [address] [place] [address] Bilirubin [Mass/Vol] 0.8 mg/dL Normal <1.2 [facility] Comment on above: Performed By: #### L AB99, LAB17 #### Lead Driver: SUSHILA FREY ([id number]) [facility] [place] ([employer]) [address] [place] [address] [place] Calcium [Mass/Vol] 9.4 mg/dL Normal 8.8-10.0 [facility] Comment on above: Performed By: #### L AB99, LAB17 #### Lead Driver: SUSHILA FREY ([id number]) [facility] [place] [facility] ([employer]) [address] Chloride [Moles/Vol] 109 mmol/L High 98-107 [facility] Comment on above: Performed By: #### L AB99, LAB17 #### Lead Driver: SUSHILA FREY ([id number]) [facility] [place] [facility] ([employer]) [address] [place] [address] CO2 [Moles/Vol] 23 mmol/L Normal 23-31 [facility] Comment on above: Performed By: #### L AB99, LAB17 #### Lead Driver: SUSHILA FREY ([id number]) [facility] ([facility]) [address] [place] [address] Creatinine [Mass/Vol] 0.80 mg/dL Normal 0.57-1.11 [facility] Comment on above: Performed By: #### L AB99, LAB17 #### Lead Driver: SUSHILA FREY ([id number]) [facility] ([facility]) [address] [place] [address] GLOMERULAR FILTRATION RATE ML/MIN/1.73 SQ M.PREDICTED 82.9 mL/min/1.73m*2 Normal >60.0 [facility] Comment on above: Result Comment: Calc ulation based on the Chronic Kidney Disease Epidemiology Collaboration (CKD-EPI) equation refit without adjustment for race Performed By: #### L AB99, LAB17 #### Lead Driver: SUSHILA FREY ([id number]) [facility] [place] [facility] ([employer]) [address] [place], [place] [address] [place] Glucose [Mass/Vol] 104 mg/dL Normal 82-115 [facility] Comment on above: Performed By: #### L AB99, LAB17 #### Lead Driver: SUSHILA FREY ([id number]) [facility] [place] [facility] ([employer]) [address] [place] [address] Potassium [Moles/Vol] 3.8 mmol/L Normal 3.5-5.1 [facility] Comment on above: Result Comment: [facility] potassium values may be up to 0.5 mmol/L lower than serum values. Performed By: #### L AB99, LAB17 #### Lead Driver: SUSHILA FREY ([id number]) [facility] [place] ([employer]) [address] [place] [address] Protein [Mass/Vol] 7.0 g/dL Normal 6.4-8.3 [facility] Comment on above: Performed By: #### L AB99, LAB17 #### Lead Driver: SUSHILA FREY ([id number]) [facility] [place] [facility] ([employer]) [address] [place] [address] Sodium [Moles/Vol] 140 mmol/L Normal 136-145 [facility] Comment on above: Performed By: #### L AB99, LAB17 #### Lead Driver: SUSHILA FREY ([id number]) [facility] [place] [facility] ([employer]) [address] [place] [address] Urea nitrogen [Mass/Vol] 17 mg/dL Normal 9-23 [facility] Comment on above: Performed By: #### L AB99, LAB17 #### Lead Driver: SUSHILA FREY ([id number]) [facility] [place] [facility] ([facility]) [address] [place] [address] CT ABDOMEN PELVIS W CONTRAST on 11-30-2024 [...] reports nausea and bloating. Hx diverticulitis. Normal [facility] CT Abdomen and Pelvis W cont rast Billie 11-30-2024 1. No acute findings . 2. Hepatic steatosis. 3. Colonic diverticulosis. Report Dictated on Electronically Signed By: Rigoberto Mustafa MD Electronically Signed Date/Time: 11/30/2024 12:42 PM EDT [facility] 1960 [id number] Exam Date/Time: 11/30/2024 11:41 Procedure: CT ABDOMEN [...] LYMPH NODES: Unremarkable. No enlarged lymph nodes. [facility] Rigoberto Mustafa MD - 11/30/2024 Patient Name: JUAN OLSEN : 1960 [facility]#: [id number] Exam Date/Time: 11/30/2024 11:41 Procedure: CT ABDOMEN [...] Electronically Signed Date/Time: 11/30/2024 12:42 PM EDT [employer] Radiology Study observation (narrative) Zack alth CT Abdomen and Pelvis W cont rast IVOrdered By: Rigoberto Mustafa on 11-30-2024 [employer] Work Phone: Comprehensive metabolic 1998 panelon 11-30-2024 Albumin [Mass/Vol] 4 g/dL 3.4 - 4.8 g/dL [facility] ALP [Catalytic activity/Vol] 65 U/L 40 - 150 U/L [facility] ALT [Catalytic activity/Vol] 34 U/L High NINF - 30 U/L [facility] Anion gap [Moles/Vol] 8 mmol/L 3 - 13 mmol/L [facility] AST [Catalytic activity/Vol] 25 U/L NINF - 34 U/L [facility] Bilirubin [Mass/Vol] 0.8 mg/dL NINF - 1.2 mg/dL [facility] Calcium [Mass/Vol] 9.4 mg/dL 8.8 - 10. 0 mg/dL [facility] Chloride [Moles/Vol] 109 mmol/L High 98 - 10 7 mmol/L [facility] CO2 [Moles/Vol] 23 mmol/L 23 - 31 mmol/L [facility] Creatinine [Mass/Vol] 0.8 mg/dL 0.57 - 1.11 mg/dL [facility] GFR/1.73 sq M.predicted (S/P/Bld) [Vol rate/Area] 82.9 mL/min - PINF [facility] Comment on above: Calculation based on the Chronic Kidney Disease Epidemiology Collaboration (CKD-EPI) equation refit without adjustment for race Glucose [Mass/Vol] 104 mg/dL 82 - 115 mg/dL [facility] Interpretation and review of laboratory results Abnormal [facility] Potassium [Moles/Vol] 3.8 mmol/L 3.5 - 5.1 mmol/L [facility] Comment on above: Plasma potassium gabriela ues may be up to 0.5 mmol/L lower than serum values. Protein [Mass/Vol] 7 g/dL 6.4 - 8.3 g/dL [facility] Sodium [Moles/Vol] 140 mmol/L 136 - 145 mmol/L [facility] Urea nitrogen [Mass/Vol] 17 mg/dL 9 - 23 mg/dL [facility] ED Nursing Noteon 11-30-2024 ED Nursing Note RN went over discharge instructions with the patient, Patient was able to reinstruct RN with discharge care. Patient denies any questions. Patient is A&Ox3 at time of discharge. Patient denied needing use of wheelchair to ED waiting room. RN directed patient towards exit upon being discharged, Patient had steady gait upon leaving unit. Normal [facility] ED Nursing Note Pt educated to poornima w michelle with PCP in regards to blood pressure. Pt verbalizes understanding. Normal [facility] ED Nursing Note DO Hannah made aware of patient blood pressure 173/75. Per DO Hannah patient is okay for discharge. [facility] ED Provider Noteon ED Provider Note EMERGENCY [...] UREA NITROGEN (more content not included)... Normal [facility] LIPASEon 11-30-2024 Lipase [Catalytic activity/Vol] 22 U/L Normal <55 [facility] Comment on above: Performed By: #### L AB99, LAB17 #### Lead Driver: SUSHILA FREY ([id number]) [facility] [address] [place] [address] Laboratory - Chemistry and C hemistry - challengeon 11-30-2024 Lipase [Catalytic activity/Vol] 22 U/L NINF - 55 U/L [facility] Lipase [Catalytic activity/V ol]on 11-30-2024 Interpretation and review of laboratory results Normal [facility] No Panel Informationon 11-30 [facility] Amylaseon 07-17-2024 SUSHILA 52 U/L Normal 25-115 [facility] Comment on above: Performed By: #### L 501.2450, L501.9520, L100.0100, L501.2400, L500.4100, L500.4050 #### [facility] [address] [place], [address] CBC W/Diff, Automatedon 07-02 Absolute Lymph 1.90 X10 3/uL Normal 0.83-4.51 [facility] Comment on above: Performed By: #### L 501.2450, L501.9520, L100.0100, L501.2400, L500.4100, L500.4050 #### [facility] [address] [place], [address] Absolute Neut 3.8 X10 3/uL Normal 2.0-7.7 [facility] Comment on above: Performed By: #### L 501.2450, L501.9520, L100.0100, L501.2400, L500.4100, L500.4050 #### [facility] [address] [place], [address] Basophils/100 WBC (Bld) 1.0 % Normal 0-1 [facility] Comment on above: Performed By: #### L 501.2450, [id number], L100.0100, L501.2400, L500.4100, L500.4050 #### [facility] [address] [place], [address] Eosinophils/100 WBC (Bld) 2.4 % Normal 0-5 [facility] Comment on above: Performed By: #### L 501.2450, [id number], L100.0100, L501.2400, L500.4100, L500.4050 #### [facility] [address] [place], [address] Erythrocyte distribution width (RBC) [Ratio] 13.2 % Normal 11.6-14.6 [facility] Comment on above: Performed By: #### L 501.2450, L501.9520, L100.0100, L501.2400, L500.4100, L500.4050 #### [facility] [address] [place], [address] Hematocrit (Bld) [Volume fraction] 37.5 % Normal 37-47 [facility] Comment on above: Performed By: #### L 501.2450, L501.9520, L100.0100, L501.2400, L500.4100, L500.4050 #### [facility] [address] [place], [address] Hemoglobin (Bld) [Mass/Vol] 13.5 g/dL Normal 12.0-15.0 [facility] Comment on above: Performed By: #### L 501.2450, L501.9520, L100.0100, L501.2400, L500.4100, L500.4050 #### [facility] [address] [place], [address] IG% 0.300 Normal 0.0-0.9 [facility] Comment on above: Result Comment: IG% - Immature Granulocytes (promyelocytes, myelocytes and metamyelocytes) > 1% indicates that a LEFT SHIFT is Present. Performed By: #### L 501.2450, L501.9520, L100.0100, L501.2400, L500.4100, L500.4050 #### [facility] [address] [place], [address] Lymphocytes/100 WBC (Bld) 30.3 % Normal 19-41 [facility] Comment on above: Performed By: #### L 501.2450, L501.9520, L100.0100, L501.2400, L500.4100, L500.4050 #### [facility] [address] [place], [address] MCH (RBC) [Entitic mass] 32.0 pg Normal 27.0-32.0 [facility] Comment on above: Performed By: #### L 501.2450, L501.9520, L100.0100, L501.2400, L500.4100, L500.4050 #### [facility] [address] [place], [address] MCHC (RBC) [Mass/Vol] 36.0 g/dL Normal 32-36 [facility] Comment on above: Performed By: #### L 501.2450, L501.9520, L100.0100, L501.2400, L500.4100, L500.4050 #### [facility] [address] [place], [address] MCV (RBC) [Entitic vol] 88.9 fL Normal 81-99 [facility] Comment on above: Performed By: #### L 501.2450, L501.9520, L100.0100, L501.2400, L500.4100, L500.4050 #### [facility] [address] [place], [address] Monocytes/100 WBC (Bld) 5.9 % Normal 0-10 [facility] Comment on above: Performed By: #### L 501.2450, L501.9520, L100.0100, L501.2400, L500.4100, L500.4050 #### [facility] [address] [place], [address] Neutrophils/100 WBC (Bld) 60.1 % Normal 47-70 [facility] Comment on above: Performed By: #### L 501.2450, L501.9520, L100.0100, L501.2400, L500.4100, L500.4050 #### [facility] [address] [place], [address] Nucleated RBC (Bld) [#/Vol] 0 10*3/uL Normal 0-5 [facility] Comment on above: Performed By: #### L 501.2450, L501.9520, L100.0100, L501.2400, L500.4100, L500.4050 #### [facility] [address] [place], [address] Platelet mean volume (Bld) [Entitic vol] 10.5 fL Normal 6.2-12.0 [facility] Comment on above: Performed By: #### L 501.2450, L501.9520, L100.0100, L501.2400, L500.4100, L500.4050 #### [facility] [address] [place], [address] Platelets (Bld) [#/Vol] 305 10*3/uL Normal 150-450 [facility] Comment on above: Performed By: #### L 501.2450, L501.9520, L100.0100, L501.2400, L500.4100, L500.4050 #### [facility] [address] [place], [address] RBC (Bld) [#/Vol] 4.22 10*6/uL Normal 4.2-5.4 [facility] Comment on above: Performed By: #### L 501.2450, L501.9520, L100.0100, L501.2400, L500.4100, L500.4050 #### [facility] [address] [place], [address] RDW SD 42.9 fl Normal 35.1-43.9 [facility] Comment on above: Performed By: #### L 501.2450, L501.9520, L100.0100, L501.2400, L500.4100, L500.4050 #### [facility] [address] [place], [address] WBC (Bld) [#/Vol] 6.3 10*3/uL Normal 4.4-11.0 [facility] Comment on above: Performed By: #### L 501.2450, [id number], L100.0100, L501.2400, L500.4100, L500.4050 #### [facility] [address] [place], [address] Comprehensive Metabolic Prof ilon 07-17-2024 Albumin [Mass/Vol] 3.7 g/dL Normal 3.2-5.0 [facility] Comment on above: Performed By: #### L 501.2450, L501.9520, L100.0100, L501.2400, L500.4100, L500.4050 #### [facility] [address] [place], [address] Albumin/Globulin [Mass ratio] 1.2 {ratio} Normal 0.9-2.4 [facility] Comment on above: Performed By: #### L 501.2450, L501.9520, L100.0100, L501.2400, L500.4100, L500.4050 #### [facility] [address] [place], [address] ALK P 74 U/L Normal 45-117 [facility] Comment on above: Performed By: #### L 501.2450, L501.9520, L100.0100, L501.2400, L500.4100, L500.4050 #### [facility] [address] [place], [address] ALT [Catalytic activity/Vol] 34 U/L Normal 13-56 [facility] Comment on above: Performed By: #### L 501.2450, L501.9520, L100.0100, L501.2400, L500.4100, L500.4050 #### [facility] [address] [place], [address] AST [Catalytic activity/Vol] 21 U/L Normal 15-37 [facility] Comment on above: Result Comment: Slig ht Hemolysis, Result may be falsely increased. Performed By: #### L 501.2450, L501.9520, L100.0100, L501.2400, L500.4100, L500.4050 #### [facility] [address] [place], [address] Bilirubin [Mass/Vol] 0.30 mg/dL Normal 0.20-1.00 [facility] Comment on above: Result Comment: For patients on eltrombopag therapy, use of Dimension [place] TBIL is not recommended. Performed By: #### L 501.2450, L501.9520, L100.0100, L501.2400, L500.4100, L500.4050 #### [facility] [address] [place], [address] BUN/CRE 33.5 RATIO High 10-20 [facility] Comment on above: Performed By: #### L 501.2450, [id number], L100.0100, L501.2400, L500.4100, L500.4050 #### [facility] [address] [place], [address] CA,Total 9.4 mg/dL Normal 8.5-10.1 [facility] Comment on above: Performed By: #### L 501.2450, L501.9520, L100.0100, L501.2400, L500.4100, L500.4050 #### [facility] [address] [place], [address] Chloride [Moles/Vol] 112 mmol/L High 98-107 [facility] Comment on above: Performed By: #### L 501.2450, L501.9520, L100.0100, L501.2400, L500.4100, L500.4050 #### [facility] [address] [place], [address] CO2 [Moles/Vol] 24.0 mmol/L Normal 21.0-32.0 [facility] Comment on above: Performed By: #### L 501.2450, L501.9520, L100.0100, L501.2400, L500.4100, L500.4050 #### [facility] [address] [place], [address] Creatinine [Mass/Vol] 0.66 mg/dL Normal 0.55-1.02 [facility] Comment on above: Result Comment: The validity of the calculated GFR GFRAA in patients over 70 years has not been determined. Clinical correlation is essential. Performed By: #### L 501.2450, L501.9520, L100.0100, L501.2400, L500.4100, L500.4050 #### [facility] [address] [place], [address] EST GFR - AA 117 mL/min Normal >60 [facility] Comment on above: Result Comment: Afri can [place] GFR Calc Performed By: #### L 501.2450, L501.9520, L100.0100, L501.2400, L500.4100, L500.4050 #### [facility] [address] [place], [place], [phone] (749) GAP 5 Normal 5-15 [facility] Comment on above: Performed By: #### L 501.2450, L501.9520, L100.0100, L501.2400, L500.4100, L500.4050 #### [facility] [address] [place], [place], [id number] ([address] GFR/1.73 sq M.predicted among non-blacks MDRD (S/P/Bld) [Vol rate/Area] 97 mL/min/{1.73_m2} Normal >60 [facility] Comment on above: Result Comment: Non- GFR Calc Performed By: #### L 501.2450, L501.9520, L100.0100, L501.2400, L500.4100, L500.4050 #### [facility] [address] [place], [place], [id number] (780) Globulin (S) [Mass/Vol] 3.1 g/dL Normal 2.2-4.2 [facility] Comment on above: Performed By: #### L 501.2450, L501.9520, L100.0100, L501.2400, L500.4100, L500.4050 #### [facility] [address] [place], [address] Glucose [Mass/Vol] 98 mg/dL Normal 74-106 [facility] Comment on above: Performed By: #### L 501.2450, L501.9520, L100.0100, L501.2400, L500.4100, L500.4050 #### [facility] [address] [place], [address] Potassium [Moles/Vol] 4.0 mmol/L Normal 3.5-5.1 [facility] Comment on above: Result Comment: Slig ht Hemolysis, Result may be falsely increased. Performed By: #### L 501.2450, L501.9520, L100.0100, L501.2400, L500.4100, L500.4050 #### [facility] [address] [place], [address] Sodium [Moles/Vol] 141 mmol/L Normal 136-145 [facility] Comment on above: Performed By: #### L 501.2450, L501.9520, L100.0100, L501.2400, L500.4100, L500.4050 #### [facility] [address] [place], [address] T PROT 6.8 g/dL Normal 6.4-8.2 [facility] Comment on above: Performed By: #### L 501.2450, L501.9520, L100.0100, L501.2400, L500.4100, L500.4050 #### [facility] [address] [place], [address] Urea nitrogen [Mass/Vol] 22 mg/dL High 7-18 [facility] Comment on above: Performed By: #### L 501.2450, L501.9520, L100.0100, L501.2400, L500.4100, L500.4050 #### [facility] [address] [place], [address] Lipaseon 07-17-2024 Lipase [Catalytic activity/Vol] 60 U/L Normal 13-75 [facility] Comment on above: Result Comment: Adria benavides note: LIPASE revised reference range effective 22. New Lipase methodology. Expected to produce lower values than the previous assay method. NEW Reference Range: 13 - 75 U/L Performed By: #### L 501.2450, L501.9520, L100.0100, L501.2400, L500.4100, L500.4050 #### [facility] [address] [place], [address] Lipid Profileon 07-17-2024 Cholesterol [Mass/Vol] 148 mg/dL Normal 200 [facility] Comment on above: Result Comment: <200 mg/dL Desirable 200-240 mg/dL Borderline >240 mg/dL High Risk Performed By: #### L 501.2450, L501.9520, L100.0100, L501.2400, L500.4100, L500.4050 #### [facility] [address] [place], [address] Cholesterol in HDL [Mass/Vol] 57 mg/dL Normal [facility] Comment on above: Result Comment: The drugs N-Acetylcysteine and Metamizole may falsely depress this assay. Reference Range HDL <40 mg/dL Low HDL Cholesterol HDL >or= 60 mg/dL High HDL Cholesterol Performed By: #### L 501.2450, L501.9520, L100.0100, L501.2400, L500.4100, L500.4050 #### [facility] [address] [place], [address] Cholesterol in LDL [Mass/Vol] 72 mg/dL Normal 0-130 [facility] Comment on above: Performed By: #### L 501.2450, L501.9520, L100.0100, L501.2400, L500.4100, L500.4050 #### [facility] [address] [place], [place], [id number] Cholesterol in VLDL [Mass/Vol] 19 mg/dL Normal 5-40 [facility] Comment on above: Performed By: #### L 501.2450, L501.9520, L100.0100, L501.2400, L500.4100, L500.4050 #### [facility] [address] [place], [address] Triglyceride [Mass/Vol] 94 mg/dL Normal [facility] Comment on above: Result Comment: The drugs N-Acetylcysteine and Metamizole may falsely depress this assay. Serum Triglycerides Reference Interval Normal <150 mg/dL Borderline high 150 - 199 mg/dL High 200 - 499 mg/dL Very High > or = 500 mg/dL Performed By: #### L 501.2450, L501.9520, L100.0100, L501.2400, L500.4100, L500.4050 #### [facility] [address] [place], [address] Thyroid Stim Hormone (TSH)on 07-17-2024 TSH 2.290 uIU/mL Normal 0.358-3.740 [facility] Comment on above: Performed By: #### L 501.2450, L501.9520, L100.0100, L501.2400, L500.4100, L500.4050 #### [facility] [address] [place], [place], [id number] ZANE Comprehensive Panelon ZANE TABLE Comment Normal . [facility] Comment on above: Result Comment: Auto [...] Sm (anti-Reynolds) SLE 15 - 30% --------- COMMUNITY MENT[employer] HE[employer] WORKER Mixed Connective Tissue Disease 95% (U1 nRNP, SLE 30 - 50% anti-ribonucleoprotein) Polymyositis and/or Dermatomyositis 20% --------- Scl-70 (antiDNA Scleroderma (diffuse) 20 - 35% topoisomerase) Crest 13% --------- Jessica-1 Polymyositis and/or Dermatomyositis 20 - 40% --------- Centromere B Scleroderma - Crest variant 80% Performed at: [address] [id number] [employer] T[employer] Helper: Magdi Che PhD, Phone: [phone] Performed By: #### L 501.2450, L501.9520, L100.0100, L501.2400, L500.4100, L500.4050 #### [facility] [address] [place], [address] ANTI-CENT B AB <0.2 Normal 0.0-0.9 [facility] Comment on above: Performed By: #### L 501.2450, L501.9520, L100.0100, L501.2400, L500.4100, L500.4050 #### [facility] [address] [place], [address] ANTI-DNA (DS)AB 8 IU/mL Normal 0-9 [facility] Comment on above: Result Comment: Nega tive <5 Equivocal 5 - 9 Positive >9 Performed By: #### L 501.2450, L501.9520, L100.0100, L501.2400, L500.4100, L500.4050 #### [facility] [address] [place], [address] ANTI-JESSICA-1 <0.2 Normal 0.0-0.9 [facility] Comment on above: Performed By: #### L 501.2450, L501.9520, L100.0100, L501.2400, L500.4100, L500.4050 #### [facility] [address] [place], [address] ANTI-SS-A < 0.2 Normal 0.0-0.9 [facility] Comment on above: Performed By: #### L 501.2450, L501.9520, L100.0100, L501.2400, L500.4100, L500.4050 #### [facility] [address] [place], [address] ANTI-SS-B < 0.2 Normal 0.0-0.9 [facility] Comment on above: Performed By: #### L 501.2450, L501.9520, L100.0100, L501.2400, L500.4100, L500.4050 #### [facility] [address] [place], [address] ANTICHROMATIN <0.2 Normal 0.0-0.9 [facility] Comment on above: Performed By: #### L 501.2450, L501.9520, L100.0100, L501.2400, L500.4100, L500.4050 #### [facility] [address] [place], [address] ANTISCLERODERM <0.2 Normal 0.0-0.9 [facility] Comment on above: Performed By: #### L 501.2450, L501.9520, L100.0100, L501.2400, L500.4100, L500.4050 #### [facility] [address] [place], [address] COMMUNITY MENT[employer] HE[employer] WORKER Ab 0.2 AI Normal 0.0-0.9 [facility] Comment on above: Performed By: #### L 501.2450, L501.9520, L100.0100, L501.2400, L500.4100, L500.4050 #### [facility] [address] [place], [address] REYNOLDS Ab <0.2 Normal 0.0-0.9 [facility] Comment on above: Performed By: #### L 501.2450, L501.9520, L100.0100, L501.2400, L500.4100, L500.4050 #### [facility] [address] [place], [address] CBC W/Diff, Automatedon 08-0 8-4 Absolute Lymph 1.68 X10 3/uL Normal 0.83-4.51 [facility] Comment on above: Performed By: #### L 100.0100, L501.6710, L500.4050, L501.9985, L500.4100, L3100.5440, L501.1400 #### [facility] [address] [place], [address] Absolute Neut 5.7 X10 3/uL Normal 2.0-7.7 [facility] Comment on above: Performed By: #### L 100.0100, L501.6710, L500.4050, L501.9985, L500.4100, L3100.5440, L501.1400 #### [facility] [address] [place], [address] Basophils/100 WBC (Bld) 0.5 % Normal 0-1 [facility] Comment on above: Performed By: #### L 100.0100, L501.6710, L500.4050, L501.9985, L500.4100, L3100.5440, L501.1400 #### [facility] [address] [place], [address] Eosinophils/100 WBC (Bld) 1.3 % Normal 0-5 [facility] Comment on above: Performed By: #### L 100.0100, L501.6710, L500.4050, L501.9985, L500.4100, L3100.5440, L501.1400 #### [facility] [address] [place], [address] Erythrocyte distribution width (RBC) [Ratio] 13.2 % Normal 11.6-14.6 [facility] Comment on above: Performed By: #### L 100.0100, L501.6710, L500.4050, L501.9985, L500.4100, L3100.5440, L501.1400 #### [facility] [address] [place], [address] Hematocrit (Bld) [Volume fraction] 43.8 % Normal 37-47 [facility] Comment on above: Performed By: #### L 100.0100, L501.6710, L500.4050, L501.9985, L500.4100, L3100.5440, L501.1400 #### [facility] [address] [place], [address] Hemoglobin (Bld) [Mass/Vol] 16.0 g/dL High 12.0-15.0 [facility] Comment on above: Performed By: #### L 100.0100, L501.6710, L500.4050, L501.9985, L500.4100, L3100.5440, L501.1400 #### [facility] [address] [facility] [place], [address] IG% 0.300 Normal 0.0-0.9 [facility] Comment on above: Result Comment: IG% - Immature Granulocytes (promyelocytes, myelocytes and metamyelocytes) > 1% indicates that a LEFT SHIFT is Present. Performed By: #### L 100.0100, L501.6710, L500.4050, L501.9985, L500.4100, L3100.5440, L501.1400 #### [facility] [address] [place], [address] Lymphocytes/100 WBC (Bld) 21.3 % Normal 19-41 [facility] Comment on above: Performed By: #### L 100.0100, L501.6710, L500.4050, L501.9985, L500.4100, L3100.5440, L501.1400 #### [facility] [address] [place], [address] MCH (RBC) [Entitic mass] 31.9 pg Normal 27.0-32.0 [facility] Comment on above: Performed By: #### L 100.0100, L501.6710, L500.4050, L501.9985, L500.4100, L3100.5440, L501.1400 #### [facility] [address] [place], [address] MCHC (RBC) [Mass/Vol] 36.5 g/dL High 32-36 [facility] Comment on above: Performed By: #### L 100.0100, L501.6710, L500.4050, L501.9985, L500.4100, L3100.5440, L501.1400 #### [facility] [address] [place], [address] MCV (RBC) [Entitic vol] 87.4 fL Normal 81-99 [facility] Comment on above: Performed By: #### L 100.0100, L501.6710, L500.4050, L501.9985, L500.4100, L3100.5440, L501.1400 #### [facility] [address] [place], [address] Monocytes/100 WBC (Bld) 5.2 % Normal 0-10 [facility] Comment on above: Performed By: #### L 100.0100, L501.6710, L500.4050, L501.9985, L500.4100, L3100.5440, L501.1400 #### [facility] [address] [place], [address] Neutrophils/100 WBC (Bld) 71.4 % High 47-70 [facility] Comment on above: Performed By: #### L 100.0100, L501.6710, L500.4050, L501.9985, L500.4100, L3100.5440, L501.1400 #### [facility] [address] [place], [address] Nucleated RBC (Bld) [#/Vol] 0 10*3/uL Normal 0-5 [facility] Comment on above: Performed By: #### L 100.0100, L501.6710, L500.4050, L501.9985, L500.4100, L3100.5440, L501.1400 #### [facility] [address] [place], [address] Platelet mean volume (Bld) [Entitic vol] 10.2 fL Normal 6.2-12.0 [facility] Comment on above: Performed By: #### L 100.0100, L501.6710, L500.4050, L501.9985, L500.4100, L3100.5440, L501.1400 #### [facility] [address] [place], [address] Platelets (Bld) [#/Vol] 332 10*3/uL Normal 150-450 [facility] Comment on above: Performed By: #### L 100.0100, L501.6710, L500.4050, L501.9985, L500.4100, L3100.5440, L501.1400 #### [facility] [address] [place], [address] RBC (Bld) [#/Vol] 5.01 10*6/uL Normal 4.2-5.4 [facility] Comment on above: Performed By: #### L 100.0100, L501.6710, L500.4050, L501.9985, L500.4100, L3100.5440, L501.1400 #### [facility] [address] [place], [address] RDW SD 42.3 fl Normal 35.1-43.9 [facility] Comment on above: Performed By: #### L 100.0100, L501.6710, L500.4050, L501.9985, L500.4100, L3100.5440, L501.1400 #### [facility] [address] [place], [address] WBC (Bld) [#/Vol] 7.9 10*3/uL Normal 4.4-11.0 [facility] Comment on above: Performed By: #### L 100.0100, L501.6710, L500.4050, L501.9985, L500.4100, L3100.5440, L501.1400 #### [facility] [address] [place], [address] CRPon 03-09-2024 C-REACTIVE PROT 4.84 mg/L High 0.0-3.0 [facility] Comment on above: Result Comment: C-Re active Protein (CRP) provides useful information for the diagnosis, therapy and monitoring of inflammatory processes and associated diseases. For the evaluation of Relative Risk for Cardiovascular Disease, a High Sensitivity CRP (HSCRP) should be ordered. Performed By: #### L 501.2450, L501.9520, L100.0100, L501.2400, L500.4100, L500.4050 #### [facility] [address] [place], [address] Comprehensive Metabolic Prof nvon 03-09-2024 Albumin [Mass/Vol] 4.1 g/dL Normal 3.2-5.0 [facility] Comment on above: Performed By: #### L 100.0100, L501.6710, L500.4050, L501.9985, L500.4100, L3100.5440, L501.1400 #### [facility] [address] [place], [address] Albumin/Globulin [Mass ratio] 1.2 {ratio} Normal 0.9-2.4 [facility] Comment on above: Performed By: #### L 100.0100, L501.6710, L500.4050, L501.9985, L500.4100, L3100.5440, L501.1400 #### [facility] [address] [place], [address] ALK P 93 U/L Normal 45-117 [facility] Comment on above: Performed By: #### L 100.0100, L501.6710, L500.4050, L501.9985, L500.4100, L3100.5440, L501.1400 #### [facility] [address] [place], [address] ALT [Catalytic activity/Vol] 43 U/L Normal 13-56 [facility] Comment on above: Performed By: #### L 100.0100, L501.6710, L500.4050, L501.9985, L500.4100, L3100.5440, L501.1400 #### [facility] [address] [place], [address] AST [Catalytic activity/Vol] 25 U/L Normal 15-37 [facility] Comment on above: Performed By: #### L 100.0100, L501.6710, L500.4050, L501.9985, L500.4100, L3100.5440, L501.1400 #### [facility] [address] [place], [address] Bilirubin [Mass/Vol] 0.90 mg/dL Normal 0.20-1.00 [facility] Comment on above: Result Comment: For patients on eltrombopag therapy, use of Dimension Dufur TBIL is not recommended. Performed By: #### L 100.0100, L501.6710, L500.4050, L501.9985, L500.4100, L3100.5440, L501.1400 #### [facility] [address] [place], [address] BUN/CRE 21.4 RATIO High 10-20 [facility] Comment on above: Performed By: #### L 100.0100, L501.6710, L500.4050, L501.9985, L500.4100, L3100.5440, L501.1400 #### [facility] [address] [place], [address] CA,Total 9.7 mg/dL Normal 8.5-10.1 [facility] Comment on above: Performed By: #### L 100.0100, L501.6710, L500.4050, L501.9985, L500.4100, L3100.5440, L501.1400 #### [facility] [address] [place], [address] Chloride [Moles/Vol] 109 mmol/L High 98-107 [facility] Comment on above: Performed By: #### L 100.0100, L501.6710, L500.4050, L501.9985, L500.4100, L3100.5440, L501.1400 #### [facility] [address] [place], [address] CO2 [Moles/Vol] 25.0 mmol/L Normal 21.0-32.0 [facility] Comment on above: Performed By: #### L 100.0100, L501.6710, L500.4050, L501.9985, L500.4100, L3100.5440, L501.1400 #### [facility] [address] [place], [place], [id number] Creatinine [Mass/Vol] 0.79 mg/dL Normal 0.55-1.02 [facility] Comment on above: Result Comment: The validity of the calculated GFR GFRAA in patients over 70 years has not been determined. Clinical correlation is essential. Performed By: #### L 100.0100, L501.6710, L500.4050, L501.9985, L500.4100, L3100.5440, L501.1400 #### [facility] [address] [place], [place], [id number] EST GFR - AA 94 mL/min Normal >60 [facility] Comment on above: Result Comment: Afri can [place] GFR Calc Performed By: #### L 100.0100, L501.6710, L500.4050, L501.9985, L500.4100, L3100.5440, L501.1400 #### [facility] [address] [place], [place], [id number] GAP 6 Normal 5-15 [facility] Comment on above: Performed By: #### L 100.0100, L501.6710, L500.4050, L501.9985, L500.4100, L3100.5440, L501.1400 #### [facility] [address] [place], [place], [id number] (212 GFR/1.73 sq M.predicted among non-blacks MDRD (S/P/Bld) [Vol rate/Area] 78 mL/min/{1.73_m2} Normal >60 [facility] Comment on above: Result Comment: Non- GFR Calc Performed By: #### L 100.0100, L501.6710, L500.4050, L501.9985, L500.4100, L3100.5440, L501.1400 #### [facility] [address] [place], [address] Globulin (S) [Mass/Vol] 3.4 g/dL Normal 2.2-4.2 [facility] Comment on above: Performed By: #### L 100.0100, L501.6710, L500.4050, L501.9985, L500.4100, L3100.5440, L501.1400 #### [facility] [address] [place], [address] Glucose [Mass/Vol] 108 mg/dL High 74-106 [facility] Comment on above: Result Comment: Fast ing Glucose result from 100 to 125 mg/dL suggests IMPAIRED HOMEOSTASIS per A.D.A. criteria. Performed By: #### L 100.0100, L501.6710, L500.4050, L501.9985, L500.4100, L3100.5440, L501.1400 #### [facility] [address] [place], [address] Potassium [Moles/Vol] 3.5 mmol/L Normal 3.5-5.1 [facility] Comment on above: Performed By: #### L 100.0100, L501.6710, L500.4050, L501.9985, L500.4100, L3100.5440, L501.1400 #### [facility] [address] [place], [address] Sodium [Moles/Vol] 140 mmol/L Normal 136-145 [facility] Comment on above: Performed By: #### L 100.0100, L501.6710, L500.4050, L501.9985, L500.4100, L3100.5440, L501.1400 #### [facility] [address] [place], [address] T PROT 7.5 g/dL Normal 6.4-8.2 [facility] Comment on above: Performed By: #### L 100.0100, L501.6710, L500.4050, L501.9985, L500.4100, L3100.5440, L501.1400 #### [facility] [address] [place], [address] Urea nitrogen [Mass/Vol] 17 mg/dL Normal 7-18 [facility] Comment on above: Performed By: #### L 100.0100, L501.6710, L500.4050, L501.9985, L500.4100, L3100.5440, L501.1400 #### [facility] [address] [place], [address] Hemoglobin A1con 03-09-2024 HbA1c (Bld) [Mass fraction] 6.1 % High 3.8-5.6 [facility] Comment on above: Result Comment: Norm al < 5.7 % Prediabetic 5.7 - 6.4 % Diabetic >or= 6.5 % Please note range changes. Performed By: #### L 501.2450, L501.9520, L100.0100, L501.2400, L500.4100, L500.4050 #### [facility] [address] [place], [address] Lipid Profileon 03-09-2024 Cholesterol [Mass/Vol] 168 mg/dL Normal 200 [facility] Comment on above: Result Comment: <200 mg/dL Desirable 200-240 mg/dL Borderline >240 mg/dL High Risk Performed By: #### L 100.0100, L501.6710, L500.4050, L501.9985, L500.4100, L3100.5440, L501.1400 #### [facility] [address] [place], [address] Cholesterol in HDL [Mass/Vol] 56 mg/dL Normal [facility] Comment on above: Result Comment: The drugs N-Acetylcysteine and Metamizole may falsely depress this assay. Reference Range HDL <40 mg/dL Low HDL Cholesterol HDL >or= 60 mg/dL High HDL Cholesterol Performed By: #### L 100.0100, L501.6710, L500.4050, L501.9985, L500.4100, L3100.5440, L501.1400 #### [facility] [address] [place], [address] Cholesterol in LDL [Mass/Vol] 91 mg/dL Normal 0-130 [facility] Comment on above: Performed By: #### L 100.0100, L501.6710, L500.4050, L501.9985, L500.4100, L3100.5440, L501.1400 #### [facility] [address] [place], [address] Cholesterol in VLDL [Mass/Vol] 21 mg/dL Normal 5-40 [facility] Comment on above: Performed By: #### L 100.0100, L501.6710, L500.4050, L501.9985, L500.4100, L3100.5440, L501.1400 #### [facility] [address] [place], [address] Triglyceride [Mass/Vol] 103 mg/dL Normal [facility] Comment on above: Result Comment: The drugs N-Acetylcysteine and Metamizole may falsely depress this assay. Serum Triglycerides Reference Interval Normal <150 mg/dL Borderline high 150 - 199 mg/dL High 200 - 499 mg/dL Very High > or = 500 mg/dL Performed By: #### L 100.0100, L501.6710, L500.4050, L501.9985, L500.4100, L3100.5440, L501.1400 #### [facility] [address] [place], [address] Uric Acidon 03-09-2024 URIC 5.2 mg/dL Normal 2.6-6.0 [facility] Comment on above: Result Comment: The drugs N-Acetylcysteine and Metamizole may falsely depress this assay. Performed By: #### L 100.0100, L501.6710, L500.4050, L501.9985, L500.4100, L3100.5440, L501.1400 #### [facility] [address] [place], [address] BI MAMMO BILATERAL DIAGNOSTI C TOMOSYNTHESISon 02-02-2024 BI MAMMO BILATERAL DIAGNOSTIC TOMOSYNTHESIS Interpreted By: Stormy Bruno, STUDY: BI MAMMO BILATERAL DIAGNOSTIC TOMOSYNTHESIS; BI US BREAST LIMITED RIGHT; 02/02/2024 11:10 am; 02/02/2024 9:34 am ACCESSION NUMBER(S): [id number]; [id number] ORDERING CLINICIAN: CHELI WRIGHT INDICATION: Follow-up of [...] Targeted ultrasound was performed by a registered perinatal specialist for remote interpretation in the central lateral [...] any future breast imaging appointments, please call [phone] ([phone]). MACRO: None Signed by: Stormy Bruno 02/02/2024 3:03 PM Dictation workstation: [id number] [facility] BI US BREAST LIMITED RIGHTon 02-02-2024 BI US BREAST LIMITED RIGHT Interpreted By: Stormy Bruno, STUDY: BI MAMMO BILATERAL DIAGNOSTIC TOMOSYNTHESIS; BI US BREAST LIMITED RIGHT; 02/02/2024 11:10 am; 02/02/2024 9:34 am ACCESSION NUMBER(S): [id number]; [id number] ORDERING CLINICIAN: CHELI WRIGHT INDICATION: Follow-up of [...] Targeted ultrasound was performed by a registered perinatal specialist for remote interpretation in the central lateral [...] any future breast imaging appointments, please call [phone] ([phone]). MACRO: None Signed by: Stormy Bruno 02/02/2024 3:03 PM Dictation workstation: [id number] [facility] DBT Breast - bilateral diagn osticon 02-02-2024 Radiology Study observation (narrative) [facility] Work Phone: No Panel Informationon 02-01 [...] any future breast imaging appointments, please call [phone] ([phone]). MACRO: None Signed by: Stormy Bruno 02/02/2024 3:03 PM Dictation workstation: [id number] [facility] Interpreted By: Stormy Bruno, STUDY: BI MAMMO BILATERAL DIAGNOSTIC TOMOSYNTHESIS; BI US BREAST LIMITED RIGHT; 02/02/2024 11:10 am; 02/02/2024 9:34 am ACCESSION NUMBER(S): [id number]; [id number] ORDERING CLINICIAN: CHELI WRIGHT INDICATION: Follow-up of [...] Targeted ultrasound was performed by a registered perinatal specialist for remote interpretation in the central lateral right breast. A simple cyst is identified at 9 o'clock, 5 cm from the nipple measuring 1.5 x 0.4 x 1.0 cm. This corresponds with the mass seen on mammogram. [facility] Stormy Bruno MD - 02/02/2024 Interpreted By: Stormy Bruno, STUDY: BI MAMMO BILATERAL DIAGNOSTIC TOMOSYNTHESIS; BI US BREAST LIMITED RIGHT; 02/02/2024 11:10 am; 02/02/2024 9:34 am ACCESSION NUMBER(S): [id number]; [id number] ORDERING CLINICIAN: CHELI WRIGHT INDICATION: Follow-up of [...] Targeted ultrasound was performed by a registered perinatal specialist for remote interpretation in the central lateral [...] any future breast imaging appointments, please call [phone]). MACRO: None Signed by: Stormy Bruno 02/02/2024 3:03 PM Dictation workstation: [id number] [facility] Work Phone: No Panel InformationOrdered By: Stormy Bruno on 02-02-2024 [facility] Work Phone: US Breast - right limitedon 02-02-2024 Radiology Study observation (narrative) [facility] Work Phone: Study Interpretation of outs maureen studyon 01-25-2024 [...] (Bld)on 01-11-2024 Basophils (Bld) [#/Vol] 0.08 10*3/uL [facility] Basophils/100 WBC (Bld) 1.0 % 0.0 - 2.0 % [facility] Eosinophils (Bld) [#/Vol] 0.19 10*3/uL [facility] Eosinophils/100 WBC (Bld) 2.5 % 0.0 - 6.0 % [facility] Erythrocyte distribution width (RBC) [Ratio] 13.5 % 11.5 - 14.5 % [facility] Hematocrit (Bld) [Volume fraction] 46.4 % High 36.0 - 46.0 % [facility] Hemoglobin (Bld) [Mass/Vol] 15.7 g/dL 12.0 - 16.0 g/dL [facility] Immature granulocytes (Bld) [#/Vol] 0.05 10*3/uL [facility] Immature granulocytes/100 WBC (Bld) 0.7 % 0.0 - 0.9 % [facility] Comment on above: Immature Granulocyte Count (IG) includes promyelocytes, myelocytes and metamyelocytes but does not include bands. Percent differential counts (%) should be interpreted in the context of the absolute cell counts (cells/UL). Interpretation and review of laboratory results Abnormal [facility] Lymphocytes (Bld) [#/Vol] 1.76 10*3/uL [facility] Lymphocytes/100 WBC (Bld) 23.0 % 13.0 - 44.0 % [facility] MCH (RBC) [Entitic mass] 31.0 pg 26.0 - 34.0 pg [facility] MCHC (RBC) [Mass/Vol] 33.8 g/dL 32.0 - 36.0 g/dL [facility] MCV (RBC) [Entitic vol] 92 fL 80 - 100 fL [facility] Monocytes (Bld) [#/Vol] 0.36 10*3/uL [facility] Monocytes/100 WBC (Bld) 4.7 % 2.0 - 10.0 % [facility] Neutrophils (Bld) [#/Vol] 5.21 10*3/uL [facility] Comment on above: Percent differential counts (%) should be interpreted in the context of the absolute cell counts (cells/uL). Neutrophils/100 WBC (Bld) 68.1 % 40.0 - 80.0 % [facility] Nucleated RBC/100 WBC (Bld) [Ratio] 0.0 % [facility] Platelets (Bld) [#/Vol] 312 10*3/uL [facility] RBC (Bld) [#/Vol] 5.06 10*6/uL [facility] WBC (Bld) [#/Vol] 7.7 10*3/uL [facility] HbA1c (Bld) [Mass fraction]o n 01-11-2024 Average glucose Estimated from glycated hemoglobin (Bld) [Mass/Vol] 140 mg/dL Not Established [facility] Interpretation and review of laboratory results Abnormal [facility] Diagnosis of Diabetes-Adults Non-Diabetic: < or = 5.6% Increased risk for developing diabetes: 5.7-6.4% Diagnostic of diabetes: > or = 6.5% Monitoring of Diabetes Age (y).................. ..... Therapeutic Goal (%) Adults: >18.................. .......<7.0 Pediatrics: 13-18................ ...<7.5 Pediatrics: 7-12................. ...<8.0 Pediatrics: 0-6.................. ... 7.5-8.5 [place] [employer]. Diabetes Care 33(S1), Aug 2009 [facility] Hemoglobin A1Con 01-11-2024 HbA1c (Bld) [Mass fraction] 6.5 % High see below [facility] Absolute lymphocyte countOrd ered By: Glendy Dominguezson on 03-30-2023 Lymphocytes Auto (Unsp spec) [#/Vol] 1.71 10*3/uL 0.83-4.51 [facility] Basophil percentageOrdered B y: Glendy Anderson on 03-30-2023 Basophils/100 WBC (Bld) 1.2 % 0-1 [facility] Bilirubin [Mass/Vol] 0.40 mg/dL 0.20-1.00 [facility] Comment on above: For patients on eltr ombopag therapy, use of Dimension Dufur TBIL is not recommended. Chloride [Moles/Vol] 108 mmol/L 98-107 [facility] Cholesterol [Mass/Vol] 158 mg/dL <200 [facility] Comment on above: <200 mg/dL Desirable 200-240 mg/dL Borderline >240 mg/dL High Risk Eosinophils/100 WBC (Bld) 3.0 % 0-5 [facility] Glucose [Mass/Vol] 157 mg/dL 74-106 [facility] Comment on above: Fasting Glucose resu lt greater than or equal to 126 mg/dL suggests DIABETES MELLITUS per A.D.A. criteria. Neutrophils (Bld) [#/Vol] 3.5 10*3/uL 2.0-7.7 [facility] Neutrophils/100 WBC (Bld) 59.7 % 47-70 [facility] Potassium [Moles/Vol] 3.7 mmol/L 3.5-5.1 [facility] Protein [Mass/Vol] 7.3 g/dL 6.4-8.2 [facility] Sodium [Moles/Vol] 140 mmol/L 136-145 [facility] Triglyceride [Mass/Vol] 115 mg/dL <199 [facility] Comment on above: The drugs N-Acetylcy steine and Metamizole may falsely depress this assay.Serum Triglycerides Reference Interval Normal <150 mg/dL Borderline high 150 - 199 mg/dL High 200 - 499 mg/dL Very High > or = 500 mg/dL WBC (Bld) [#/Vol] 5.9 10*3/uL 4.4-11.0 [facility] Blood erythrocytes count (nu mber/volume)Ordered By: Glendy Anderson on 03-30-2023 RBC (Bld) [#/Vol] 4.65 10*6/uL 4.2-5.4 [facility] Blood hemoglobin measurement (mass/volume)Ordered By: Glendy Anderson on 03-30-2023 Hemoglobin (Bld) [Mass/Vol] 14.7 g/dL 12.0-15.0 [facility] Blood lymphocytes/100 leukoc ytesOrdered By: Glendy Anderson on 03-30-2023 Lymphocytes/100 WBC (Bld) 28.8 % 19-41 [facility] Blood monocytes/100 leukocyt esOrdered By: Glendy Anderson on 03-30-2023 Monocytes/100 WBC (Bld) 7.1 % 0-10 [facility] Blood platelet mean volumeOr dered By: Glendy Anderson on 03-30-2023 Platelet mean volume (Bld) [Entitic vol] 10.1 fL 6.2-12.0 [facility] Determination of erythrocyte mean corpuscular volume (MCV)Ordered By: Glendy Anderson on 03-30-2023 MCV (RBC) [Entitic vol] 88.4 fL 81-99 [facility] Hematocrit Auto (Bld) [Volum e fraction]Ordered By: Glendy Anderson on 03-30-2023 Hematocrit (Bld) [Volume fraction] 41.1 % 37-47 [facility] Laboratory - Chemistry and C hemistry - challengeOrdered By: Glendy Anderson on 03-30-2023 ALP [Catalytic activity/Vol] 84 U/L 45-117 [facility] ALT [Catalytic activity/Vol] 36 U/L 13-56 [facility] CO2 [Moles/Vol] 26.0 mmol/L 21.0-32.0 [facility] Globulin (S) [Mass/Vol] 3.4 g/dL 2.2-4.2 [facility] Urea nitrogen/Creatinine [Mass ratio] 19.8 mg/mg 10-20 [facility] Laboratory - Hematology and Cell countsOrdered By: Glendy Anderson on 03-30-2023 Erythrocyte distribution width (RBC) [Entitic vol] 41.2 fL 35.1-43.9 [facility] Erythrocyte distribution width (RBC) [Ratio] 12.8 % 11.6-14.6 [facility] Immature granulocytes/100 WBC (Bld) 0.200 % 0.0-0.9 [facility] Comment on above: IG% - Immature Granu locytes (promyelocytes, myelocytes and metamyelocytes) > 1% indicates that a LEFT SHIFT is Present. MCH (RBC) [Entitic mass] 31.6 pg 27.0-32.0 [facility] Nucleated RBC/100 WBC (Bld) [Ratio] 0 % 0-5 [facility] MCHC Auto (RBC) [Mass/Vol]Or dered By: Glendy Anderson on 03-30-2023 MCHC (RBC) [Mass/Vol] 35.8 g/dL 32-36 [facility] No Panel InformationOrdered By: Glendy Anderson on 03-30-2023 Estimated GFR (MDRD) Amer 108 mL/min >60 [facility] Comment on above: GFR Calc Estimated GFR (MDRD) Non-Af Amer 89 mL/min >60 [facility] Comment on above: Non- GFR Calc Platelets bldOrdered By: Melvin Anderson on 03-30-2023 Platelets (Bld) [#/Vol] 312 10*3/uL 150-450 [facility] Serum or plasma albumin shawna urement (mass/volume)Ordered By: Glendy Anderson on 03-30-2023 Albumin [Mass/Vol] 3.9 g/dL 3.2-5.0 [facility] Serum or plasma albumin/glob ulin mass ratioOrdered By: Glendy Anderson on 03-30-2023 Albumin/Globulin [Mass ratio] 1.1 {ratio} 0.9-2.4 [facility] Serum or plasma calcium shawna urement (mass/volume)Ordered By: Glendy Anderson on 03-30-2023 Calcium [Mass/Vol] 9.4 mg/dL 8.5-10.1 [facility] Serum or plasma cholesterol in HDL measurement (mass/volume)Ordered By: Glendy Anderson on 03-30-2023 Cholesterol in HDL [Mass/Vol] 47 mg/dL >40 [facility] Comment on above: The drugs N-Acetylcy steine and Metamizole may falsely depress this assay. Reference Range HDL <40 mg/dL Low HDL Cholesterol HDL >or= 60 mg/dL High HDL Cholesterol Serum or plasma cholesterol in VLDL measurement (mass/volume)Ordered By: Glendy Anderson on 03-30-2023 Cholesterol in VLDL [Mass/Vol] 23 mg/dL 5-40 [facility] Serum or plasma creatinine m easurement (mass/volume)Ordered By: Glendy Anderson on 03-30-2023 Creatinine [Mass/Vol] 0.71 mg/dL 0.55-1.02 [facility] Comment on above: The validity of the calculated GFR & GFRAA in patients over 70 years has not been determined. Clinical correlation is essential. Serum or plasma low density lipoprotein (LDL) cholesterol measurement (mass/volume)Ordered By: Glendy Anderson on 03-30-2023 Cholesterol in LDL [Mass/Vol] 88 mg/dL 0-130 [facility] Serum or plasma urea nitroge n measurement (mass/volume)Ordered By: Glendy Anderson on 03-30-2023 Urea nitrogen [Mass/Vol] 14 mg/dL 7-18 [facility] Thin prep Papanicolaou smear with manual screeningOrdered By: Glendy Anderson on 03-30-2023 Thin prep Papanicolaou smear with manual screening 16 U/L 15-37 [facility] Thin prep Papanicolaou smear with manual screening 6 5-15 [facility] GLUCOSEon 03-24-2023 Glucose [Mass/Vol] 154 mg/dL High 74 - 99 [facility] Comment on above: Performed By: #### G FREDI #### [place] [address] LIPID PANEL (CORONARY RISK 2 )on 03-24-2023 Cholesterol [Mass/Vol] 159 mg/dL Normal 0 - 199 [facility] Comment on above: Result Comment: . AGE [...] dosing. Performed By: #### L IPID #### [address] [address] Cholesterol in HDL [Mass/Vol] 48.0 mg/dL Normal [facility] Comment on above: Result Comment: . AGE VERY LOW LOW NORMAL HIGH 0-19 Y < 35 < 40 40-45 ---- 20-24 Y ---- < 40 >45 ---- >24 Y ---- < 40 40-60 >60 . Performed By: #### L IPID #### [address] [address] Cholesterol in LDL [Mass/Vol] 93 mg/dL Normal 0 - 99 [facility] Comment on above: Result Comment: . NEAR BORD AGE DESIRABLE OPTIMAL HIGH HIGH VERY HIGH 0-19 Y 0 - 109 --- 110-129 >/= 130 ---- 20-24 Y 0 - 119 --- 120-159 >/= 160 ---- >24 Y 0 - 99 100-129 130-159 160-189 >/=190 . Performed By: #### L IPID #### [address] [address] Cholesterol in VLDL [Mass/Vol] 18 mg/dL Normal 0 - 40 [facility] Comment on above: Performed By: #### L IPID #### [address] [address] Cholesterol.total/Hannah sterol in HDL [Mass ratio] 3.3 {ratio} Normal [facility] Comment on above: Result Comment: REF VALUES DESIRABLE < 3.4 HIGH RISK > 5.0 Performed By: #### L IPID #### [place] [id number] [place] [id number] Triglyceride [Mass/Vol] 90 mg/dL Normal 0 - 149 [facility] Comment on above: Result Comment: . [...] dosing. Performed By: #### L IPID #### [place] [id number] Basophil percentageOrdered B y: Glendy Anderson on 01-27-2023 Bilirubin [Mass/Vol] 0.40 mg/dL 0.20-1.00 [facility] Comment on above: For patients on eltr ombopag therapy, use of Dimension Dufur TBIL is not recommended. Chloride [Moles/Vol] 111 mmol/L 98-107 [facility] Glucose [Mass/Vol] 165 mg/dL 74-106 [facility] Comment on above: Fasting Glucose resu lt greater than or equal to 126 mg/dL suggests DIABETES MELLITUS per A.D.A. criteria. Potassium [Moles/Vol] 4.3 mmol/L 3.5-5.1 [facility] Protein [Mass/Vol] 6.9 g/dL 6.4-8.2 [facility] Sodium [Moles/Vol] 143 mmol/L 136-145 [facility] Laboratory - Chemistry and C hemistry - challengeOrdered By: Glendy Andersno on 01-27-2023 ALP [Catalytic activity/Vol] 72 U/L 45-117 [facility] ALT [Catalytic activity/Vol] 35 U/L 13-56 [facility] CO2 [Moles/Vol] 29.0 mmol/L 21.0-32.0 [facility] Globulin (S) [Mass/Vol] 3.4 g/dL 2.2-4.2 [facility] Urea nitrogen/Creatinine [Mass ratio] 19.2 mg/mg 10-20 [facility] No Panel InformationOrdered By: Glendy Anderson on 01-27-2023 C-Reactive Protein High Sensitivity 3.79 mg/L <3.00 [facility] Comment on above: Low Relative Risk of CVD <1.0 mg/L Average Relative Risk of CVD 1.0 - 3.0 mg/L High Relative Risk of CVD >3.0 mg/L Estimated GFR (MDRD) Amer 104 mL/min >60 [facility] Comment on above: GFR Calc Estimated GFR (MDRD) Non-Af Amer 86 mL/min >60 [facility] Comment on above: Non- GFR Calc Thyroid Stimulating Hormone (TSH) 1.45 uIU/mL 0.358-3.74 [facility] Serum or plasma albumin shawna urement (mass/volume)Ordered By: Glendy Anderson on 01-27-2023 Albumin [Mass/Vol] 3.5 g/dL 3.2-5.0 [facility] Serum or plasma albumin/glob ulin mass ratioOrdered By: Glendy Anderson on 01-27-2023 Albumin/Globulin [Mass ratio] 1.0 {ratio} 0.9-2.4 [facility] Serum or plasma calcium shawna urement (mass/volume)Ordered By: Glendy Anderson on 01-27-2023 Calcium [Mass/Vol] 9.4 mg/dL 8.5-10.1 [facility] Serum or plasma creatinine m easurement (mass/volume)Ordered By: Glendy Anderson on 01-27-2023 Creatinine [Mass/Vol] 0.73 mg/dL 0.55-1.02 [facility] Comment on above: The validity of the calculated GFR & GFRAA in patients over 70 years has not been determined. Clinical correlation is essential. Serum or plasma urea nitroge n measurement (mass/volume)Ordered By: Glendy Anderson on 01-27-2023 Urea nitrogen [Mass/Vol] 14 mg/dL 7-18 [facility] Thin prep Papanicolaou smear with manual screeningOrdered By: Glendy Anderson on 01-27-2023 Thin prep Papanicolaou smear with manual screening 16 U/L 15-37 [facility] Thin prep Papanicolaou smear with manual screening 3 5-15 [facility] CNPNon 11-04-2022 CNPN Telephone (AYSE) JUAN OLSEN ([id number]) 1960 F Date Time Provider Department 11/04/22 [...] Encounter Status:Closed by KEE ABBOTT on 11/04/22 [facility] Absolute lymphocyte countOrd ered By: Dr. Tapia on 11-03-2022 Lymphocytes Auto (Unsp spec) [#/Vol] 1.91 10*3/uL 0.83-4.51 [facility] Basophil percentageOrdered B y: Dr. Tapia on 11-03-2022 Basophils/100 WBC (Bld) 1.0 % 0-1 [facility] Eosinophils/100 WBC (Bld) 3.6 % 0-5 [facility] Neutrophils (Bld) [#/Vol] 4.5 10*3/uL 2.0-7.7 [facility] Neutrophils/100 WBC (Bld) 63.0 % 47-70 [facility] WBC (Bld) [#/Vol] 7.1 10*3/uL 4.4-11.0 [facility] Blood erythrocytes count (nu mber/volume)Ordered By: Dr. Tapia on 11-03-2022 RBC (Bld) [#/Vol] 4.87 10*6/uL 4.6-6.2 [facility] Blood hemoglobin measurement (mass/volume)Ordered By: Dr. Tapia on 11-03-2022 Hemoglobin (Bld) [Mass/Vol] 15.6 g/dL 13.0-16.5 [facility] Blood lymphocytes/100 leukoc ytesOrdered By: Dr. Tapia on 11-03-2022 Lymphocytes/100 WBC (Bld) 26.8 % 19-41 [facility] Blood monocytes/100 leukocyt esOrdered By: Dr. Tapia on 11-03-2022 Monocytes/100 WBC (Bld) 5.3 % 0-10 [facility] Blood platelet mean volumeOr dered By: Dr. Tapia on 11-03-2022 Platelet mean volume (Bld) [Entitic vol] 9.8 fL 6.2-12.0 [facility] Determination of erythrocyte mean corpuscular volume (MCV)Ordered By: Dr. Tapia on 11-03-2022 MCV (RBC) [Entitic vol] 90.1 fL 80-94 [facility] Hematocrit Auto (Bld) [Volum e fraction]Ordered By: Dr. Tapia on 11-03-2022 Hematocrit (Bld) [Volume fraction] 43.9 % 40-54 [facility] Laboratory - Chemistry and C hemistry - challengeOrdered By: Dr. Tapia on 11-03-2022 Natriuretic peptide B (Bld) [Mass/Vol] 110.2 pg/mL 0-100 [facility] Laboratory - Hematology and Cell countsOrdered By: Dr. Tapia on 11-03-2022 Erythrocyte distribution width (RBC) [Entitic vol] 41.2 fL 35.1-43.9 [facility] Erythrocyte distribution width (RBC) [Ratio] 12.6 % 11.6-14.6 [facility] Immature granulocytes/100 WBC (Bld) 0.300 % 0.0-0.9 [facility] Comment on above: IG% - Immature Granu locytes (promyelocytes, myelocytes and metamyelocytes) > 1% indicates that a LEFT SHIFT is Present. MCH (RBC) [Entitic mass] 32.0 pg 27.0-32.0 [facility] Nucleated RBC/100 WBC (Bld) [Ratio] 0 % 0-5 [facility] MCHC Auto (RBC) [Mass/Vol]Or dered By: Dr. Tapia on 11-03-2022 MCHC (RBC) [Mass/Vol] 35.5 g/dL 32-36 [facility] Platelets bldOrdered By: Dr. Tapia on 11-03-2022 Platelets (Bld) [#/Vol] 273 10*3/uL 150-450 [facility] MIRZA DIAG W ARMEN RIGHTon 04-0 [facility] CNCOon 08-11-2022 CNCO Letter Text Normal [facility] No Panel InformationOrdered By: Glendy Anderson on 07-28-2022 Thyroid Stimulating Hormone (TSH) 1.97 uIU/mL 0.358-3.74 [facility] CNPNon 03-10-2022 CNPN Telephone (OBGWMA) JUAN OLSEN ([id number]) 1960 F Date Time Provider Department 03/10/22 DARLINE BARNHARTDONALD During your visit today, we recorded the following information about you: Aissatou Turner LPN 03/10/2022 9:21 AM Signed [facility] [place]PRESSION: PROBABLY BENIGN - SHORT TERM INTERVAL [...] TURNER on: 03/10/2022 09:49 AM Modules accepted: Robby Barnhart MD 03/10/2022 10:02 AM Signed Addended by: DARLINE BARNHART on: 03/10/2022 10:02 AM Modules accepted: Robby Turner LPN 08/11/2022 10:30 AM Signed My Chart message read. Certified letter sent Tracking [id number] LEXI Christian LPN 09/18/2022 2:38 PM Signed Certified letter unable to track through [employer]PS. New Cert letter sent with trackin [id number] [...] Visit Diagnosis:Follow-up examination of abnormal mammogram [R92.8] Order(s):[facility] DIAGNOSTIC RT [[id number]] Order #: [id number] FUTURE US BREAST LTD RT [[id number]] Order #: [id number] FUTURE Prescriptions as of 09/18/2022 - ethinyl [...] Encounter Status:Closed by AISSATOU TURNER on 03/10/22 [facility] FLAVIO AYERS RTon 022 [facility] US BREAST LTD RTon 03-02 [facility] CT ABD/PEL W IVCONon -13-2 022 Radiology Result ACTIONABLE Abnormal Garimahumaira carrie [facility] Shazia 01-14-2022 LENNYN Telephone (OBGWMA) PRETTYJUAN ([id number]) 1960 F Date Time Provider Department 01/14/22 DARLINE BARNHART [facility] During your visit today, we recorded the [...] Encounter Status:Closed by AISSATOU TURNER on 01/14/22 [facility] Absolute lymphocyte counton 01-13-2022 Lymphocytes Auto (Unsp spec) [#/Vol] 1.68 10*3/uL 0.83-4.51 [facility] Work Phone: Basophil percentageon 2021 Basophils/100 WBC (Bld) 0.7 % 0-1 [facility] Work Phone: Bilirubin [Mass/Vol] 0.50 mg/dL 0.20-1.00 [facility] Work Phone: Comment on above: For patients on eltr ombopag therapy, use of Dimension Dufur TBIL is not recommended. Chloride [Moles/Vol] 107 mmol/L 98-107 [facility] Work Phone: Cholesterol [Mass/Vol] 178 mg/dL <200 [facility] Work Phone: Comment on above: <200 mg/dL Desirable 200-240 mg/dL Borderline >240 mg/dL High Risk Eosinophils/100 WBC (Bld) 2.1 % 0-5 [facility] Work Phone: Glucose [Mass/Vol] 101 mg/dL 74-106 [facility] Work Phone: Comment on above: Fasting Glucose resu lt from 100 to 125 mg/dL suggests IMPAIRED HOMEOSTASIS per A.D.A. criteria. Neutrophils (Bld) [#/Vol] 6.2 10*3/uL 2.0-7.7 [facility] Work Phone: Neutrophils/100 WBC (Bld) 72.1 % 47-70 [facility] Work Phone: Potassium [Moles/Vol] 3.9 mmol/L 3.5-5.1 [facility] Work Phone: Protein [Mass/Vol] 7.1 g/dL 6.4-8.2 [facility] Work Phone: Sodium [Moles/Vol] 138 mmol/L 136-145 [facility] Work Phone: Triglyceride [Mass/Vol] 118 mg/dL <199 [facility] Work Phone: Comment on above: The drugs N-Acetylcy steine and Metamizole may falsely depress this assay.Serum Triglycerides Reference Interval Normal <150 mg/dL Borderline high 150 - 199 mg/dL High 200 - 499 mg/dL Very High > or = 500 mg/dL WBC (Bld) [#/Vol] 8.5 10*3/uL 4.4-11.0 [facility] Work Phone: Blood erythrocytes count (nu mber/volume)on 01-13-2022 RBC (Bld) [#/Vol] 4.80 10*6/uL 4.6-6.2 [facility] Work Phone: Blood hemoglobin measurement (mass/volume)on 01-13-2022 Hemoglobin (Bld) [Mass/Vol] 15.4 g/dL 13.0-16.5 [facility] Work Phone: Blood lymphocytes/100 leukoc yteson 01-13-2022 Lymphocytes/100 WBC (Bld) 19.7 % 19-41 [facility] Work Phone: Blood monocytes/100 leukocyt eson 01-13-2022 Monocytes/100 WBC (Bld) 5.0 % 0-10 [facility] Work Phone: Blood platelet mean volumeon 01-13-2022 Platelet mean volume (Bld) [Entitic vol] 10.1 fL 6.2-12.0 [facility] Work Phone: Determination of erythrocyte mean corpuscular volume (MCV)on 01-13-2022 MCV (RBC) [Entitic vol] 90.2 fL 80-94 [facility] Work Phone: Hematocrit Auto (Bld) [Volum e fraction]on 01-13-2022 Hematocrit (Bld) [Volume fraction] 43.3 % 40-54 [facility] Work Phone: Laboratory - Chemistry and C hemistry - challengeon 01-13-2022 ALP [Catalytic activity/Vol] 68 U/L 45-117 [facility] Work Phone: ALT [Catalytic activity/Vol] 30 U/L 16-61 [facility] Work Phone: CO2 [Moles/Vol] 25.0 mmol/L 21.0-32.0 [facility] Work Phone: Cobalamin (Vitamin B12) [Mass/Vol] 441 pg/mL 211-911 [facility] Work Phone: Globulin (S) [Mass/Vol] 3.3 g/dL 2.2-4.2 [facility] Work Phone: Urea nitrogen/Creatinine [Mass ratio] 20.9 mg/mg 10-20 [facility] Work Phone: Laboratory - Hematology and Cell countson 01-13-2022 Erythrocyte distribution width (RBC) [Entitic vol] 42.4 fL 35.1-43.9 [facility] Work Phone: Erythrocyte distribution width (RBC) [Ratio] 12.9 % 11.6-14.6 [facility] Work Phone: Immature granulocytes/100 WBC (Bld) 0.400 % 0.0-0.9 [facility] Work Phone: Comment on above: IG% - Immature Granu locytes (promyelocytes, myelocytes and metamyelocytes) > 1% indicates that a LEFT SHIFT is Present. MCH (RBC) [Entitic mass] 32.1 pg 27.0-32.0 [facility] Work Phone: Nucleated RBC/100 WBC (Bld) [Ratio] 0 % 0-5 [facility] Work Phone: MIRZA SCREENINGon 01-13-2022 [facility] MCHC Auto (RBC) [Mass/Vol]on 01-13-2022 MCHC (RBC) [Mass/Vol] 35.6 g/dL 32-36 [facility] Work Phone: No Panel Informationon 01-13 Estimated GFR (MDRD) Amer 143 mL/min >60 [facility] Work Phone: Comment on above: GFR Calc Estimated GFR (MDRD) Non-Af Amer 119 mL/min >60 [facility] Work Phone: Comment on above: Non- GFR Calc Thyroid Stimulating Hormone (TSH) 4.94 uIU/mL 0.358-3.74 [facility] Work Phone: Platelets bldon 01-13-2022 Platelets (Bld) [#/Vol] 331 10*3/uL 150-450 [facility] Work Phone: [phone] Serum or plasma albumin shawna urement (mass/volume)on 01-13-2022 Albumin [Mass/Vol] 3.8 g/dL 3.2-5.0 [facility] Work Phone: Serum or plasma albumin/glob ulin mass ratioon 01-13-2022 Albumin/Globulin [Mass ratio] 1.2 {ratio} 0.9-2.4 [facility] Work Phone: [phone] Serum or plasma calcium shawna urement (mass/volume)on 01-13-2022 Calcium [Mass/Vol] 10.0 mg/dL 8.5-10.1 [facility] Work Phone: Serum or plasma cholesterol in HDL measurement (mass/volume)on 01-13-2022 Cholesterol in HDL [Mass/Vol] 60 mg/dL >40 [facility] Work Phone: Comment on above: The drugs N-Acetylcy steine and Metamizole may falsely depress this assay. Reference Range HDL <40 mg/dL Low HDL Cholesterol HDL >or= 60 mg/dL High HDL Cholesterol Serum or plasma cholesterol in VLDL measurement (mass/volume)on 01-13-2022 Cholesterol in VLDL [Mass/Vol] 24 mg/dL 5-40 [facility] Work Phone: Serum or plasma creatinine m easurement (mass/volume)on 01-13-2022 Creatinine [Mass/Vol] 0.72 mg/dL 0.70-1.30 [facility] Work Phone: Comment on above: The validity of the calculated GFR & GFRAA in patients over 70 years has not been determined. Clinical correlation is essential. Serum or plasma low density lipoprotein (LDL) cholesterol measurement (mass/volume)on 01-13-2022 Cholesterol in LDL [Mass/Vol] 94 mg/dL 0-130 [facility] Work Phone: Serum or plasma urea nitroge n measurement (mass/volume)on 01-13-2022 Urea nitrogen [Mass/Vol] 15 mg/dL 7-18 [facility] Work Phone: Thin prep Papanicolaou smear with manual screeningon 01-13-2022 Thin prep Papanicolaou smear with manual screening 14 U/L 15-37 [facility] Work Phone: Thin prep Papanicolaou smear with manual screening 6 5-15 [facility] Work Phone: CNOVon 01-09-2022 CNOV Office Visit (OBGWMA ) JUAN OLSEN ([id number]) 1960 F Date Time Provider Department 01/09/22 10:30 AM DARLINE BARNHARTGDONALD During your visit today, we recorded the [...] L3 SAB0 IAB0 Ectopic0 Multiple0 Live Births0 [employer] History LMP: Hysterectomy Age at Menarche: Age at First : Age at Menopause: [employer] History Comments: Sexual Activity: Yes; Male Contraception: [...] Left 06/24/2020 - PAST SURGICAL HISTORY OF 2012 Bowel removal- colon resection for diverticulitis - [...] medication updated:Yes EXAM: BP 142/88 Ht 5' 1" (1.55m) Wt 175 lb (79.4kg) BMI 33.08 [...] external genitalia normal, normal Bartholin's glands, urethra, [place]'s glands, no vulvar lesions,, physiologic discharge present, [...] health screening schedule is recommended by the [place] [employer] (ACOG). Some [...] available aga (more content not included)... Normal [facility] Shazia 12-01-2021 CNPN Telephone (OBGWMA) JUAN OLSEN ([id number]) 1960 F Date Time Provider Department 12/01/21 DARLINE BARNHART OBGWTN During your visit today, we recorded the [...] associated with the menopause [facility] [place] [address] [address] [facility] [address] ?- [phone] LEXI Christian LPN 12/02/2021 10:54 AM Signed [...] Encounter Status:Closed by AISSATOU TURNER on 12/01/21 [facility] MR Hip - left WO contraston 06-27-2021 IMPRESSION: Mild osteoarthritis left hip. No labral tear. Degenerative changes of the lower lumbar spine. Courtesy Bus Driver: LOS Transcribe Date/Time: Jun 27 2021 1:45P Dictated by : CARLOS OROURKE, This examination was interpreted and the report reviewed and electronically signed by: JUANPABLO BRANDT MD on Jun 27 2021 5:17PM [facility] [[email or web address]] DIVISION OF RADIOLOGY * * *Final Report* * * DATE OF EXAM: Jun 27 2021 12:55PM [facility] 0206 - MRI HIP WO [...] joint effusion. No AVN or fracture. Large fihav-tj-xydk images of the right hip are unremarkable. [...] Right renal cyst. DIVISION OF RADIOLOGY Provider, [facility] - 06/27/2021 * * *Final Report* * * DATE OF EXAM: Jun 27 2021 12:55PM [facility] 0206 - MRI HIP WO [...] joint effusion. No AVN or fracture. Large tjuyy-ks-lset images of the right hip are unremarkable. [...] Degenerative changes of the lower lumbar spine. Courtesy Bus Driver: LOS Transcribe Date/Time: Jun 27 2021 1:45P Dictated by : CARLOS OROURKE DO This examination was interpreted and the report reviewed and electronically signed by: JUANPABLO BRANDT MD on Jun 27 2021 5:17PM EST [facility] Radiology Study observation (narrative) [facility] MR Hip - left WO contrastOrd ered By: Ccf Provider on 06-27-2021 [facility] XR HIP GENERAL 3V PELV/AP/LA T LTon 06-10-2021 [facility] [place] ARTHR/ASP/INJ MAJOR JT/BU RSA LT WO USon 01-15-2020 Patient Name: JUAN OLSEN ---Fluoroscopy--- Exam Date/Time 01/15/2020 11:48:47 EDT Exam RF Arthrogram Aspir Inj Natan Jt Left Ordering Physician MD MALISSA, FELIPE GIPSON Accession Number [id number] CTP4 Codes 01001 (), 48491 (RF FLUORO GUIDANCE NEEDLE PLACEMENT) Reason For [...] J Transcribed Date and Time: 01/15/2020 2:29 [place], [place] Jose, [facility] Incoming Radiology Results From [facility] - 01/15/2020 2:31 PM EDT Patient Name: JUAN OLSEN ---Fluoroscopy--- Exam Date/Time 01/15/2020 11:48:47 EDT Exam RF Arthrogram Aspir Inj Natan Jt Left Ordering Physician MD MALISSA, FELIPE GIPSON Accession Number [id number] CTP4 Codes 37758 (), 84497 (RF FLUORO GUIDANCE NEEDLE PLACEMENT) Reason For [...] J Transcribed Date and Time: 01/15/2020 2:29 [place] RF Arthrogram Aspir Inj Natan Jt Lefton 01-15-2020 RF Arthrogram Aspir Inj Natan Jt Left Patient Name: JUAN OLSEN Fluoroscopy Exam Date/Time 01/15/2020 11:48:47 EDT Exam RF Arthrogram Aspir Inj Natan Jt Left Ordering Physician MD MALISSA, FELIPE GIPSON Accession Number [id number] CTP4 Codes 80101 (), 26215 (RF FLUORO GUIDANCE NEEDLE PLACEMENT) Reason For [...] Transcribed Date and Time: 01/15/2020 2:29 Normal [facility] [place] ARTHR/ASP/INJ MAJOR JT/BU RSA LT WO USon 01-03-2020 Patient Name: JUAN OLSEN ---Fluoroscopy--- Exam Date/Time 01/03/2020 09:59:37 EDT Exam RF Arthrogram Aspir Inj Natan Jt Left Ordering Physician MD MALISSA, FELIPE GIPSON Accession Number [id number] [facility] Codes 92172 (), 07947 (RF FLUORO GUIDANCE NEEDLE PLACEMENT), 78783 (RF INJ HIP ARTHRO W/O ANESTHESIA LT) [...] KRIKOR Transcribed Date and Time: 01/03/2020 3:46 [place], [place] Jose, [facility] Incoming Radiology Results From [facility] - 01/03/2020 4:27 PM EDT Patient Name: JUAN OLSEN ---Fluoroscopy--- Exam Date/Time 01/03/2020 09:59:37 EDT Exam RF Arthrogram Aspir Inj Natan Jt Left Ordering Physician MD MALISSA, FELIPE GIPSON Accession Number [id number] CTP4 Codes 99859 (), 97280 (RF FLUORO GUIDANCE NEEDLE PLACEMENT), 56035 (RF INJ HIP ARTHRO W/O ANESTHESIA LT) [...] KRIKOR Transcribed Date and Time: 01/03/2020 3:46 [place] MRI LOWER EXTREMITY LEFT W J T W CONTRASTon 01-03-2020 Patient Name: JUAN OLSEN ---MRI--- Exam Date/Time 01/03/2020 10:32:25 EDT Exam MRI Low Ext Joint w/ Contrast Left Ordering Physician MD MALISSA, FELIPE GIPSON Accession Number [id number] CPT4 Codes 97981 () Reason For Exam left hip disorder [...] KRIKOR Transcribed Date and Time: 01/03/2020 3:46 [place], [place] Jose, Zack Incoming Radiology Results From [facility] - 01/03/2020 4:27 PM EDT Patient Name: JUAN OLSEN ---MRI--- Exam Date/Time 01/03/2020 10:32:25 EDT Exam MRI Low Ext Joint w/ Contrast Left Ordering Physician MD MALISSA, FELIPE GIPSON Accession Number [id number] CPT4 Codes 47984 () Reason For Exam left hip disorder [...] KRIKOR Transcribed Date and Time: 01/03/2020 3:46 [facility] [place], [place] MRI Low Ext Joint w/ Contras t [place]on 01-03-2020 MRI Low Ext Joint w/ Contrast Left Patient Name: JUAN OLSEN MRI Exam Date/Time 01/03/2020 10:32:25 EDT Exam MRI Low Ext Joint w/ Contrast Left Ordering Physician MD MALISSA, FELIPE GIPSON Accession Number [id number] CPT4 Codes 94217 () Reason For Exam left hip disorder [...] Transcribed Date and Time: 01/03/2020 3:46 Normal [facility] RF Arthrogram Aspir Inj Natan Jt Lefton 01-03-2020 RF Arthrogram Aspir Inj Natan Jt Left Patient Name: JUAN OLSEN Fluoroscopy Exam Date/Time 01/03/2020 09:59:37 EDT Exam RF Arthrogram Aspir Inj Natan Jt Left Ordering Physician MD MALISSA, FELIPE GIPSON Accession Number [id number] CTP4 Codes 32341 (), 36052 (RF FLUORO GUIDANCE NEEDLE PLACEMENT), 06342 (RF INJ HIP ARTHRO W/O ANESTHESIA LT) [...] Transcribed Date and Time: 01/03/2020 3:46 Normal [facility] MAMMOGRAM SCREENING WITH CAD IF PERFORMEDon 03-10-2018 MAMMOGRAM SCREENING WITH CAD IF PERFORMED Performed at [facility] APPROVED BY: Anthony Seaman MD #[id number] - MAMMOGRAM SCREENING WITH CAD IF PERFORMEDBILATERAL DIGITAL SCREENING MAMMOGRAM WITH CAD WITH MEDIOLATERAL OBLIQUE CRANIOCAUDAL: 03/10/2018CLINICAL: Routine screening mammogram. Patient reports no breast problems. Comparison is made to exams dated: 02/18/2016 mammogram - [facility], 04/24/2014 mammogram, and 04/25/2010 mammogram - [facility]. There are scattered fibroglandular elements in both [...] patient was notified of the results. Anthony celestin/george:03/10/2018 16:26:13 [employer] Operator: Kalyani Contreras)(Whit), [facility]: [facility]ad 1 or 2 Mammogram BI-RADS: 1 Negative Normal [facility] Cult Urineon 03-07-2018 Cult Urine Test performed at [facility] No growth Normal [facility] Comment on above: Performed By: #### C _URI ####[facility] [place], [place] [address] US Pelvis TA/TVon 09-22-2017 US Pelvis TA/TV Patient Name: JUAN OLSEN Ultrasound Exam Date/Time 09/22/2017 13:03:36 EST Exam US Pelvis TA/TV Ordering Physician SHANIA CHO CONNOR N Accession Number [id number] CPT4 Codes 65603 (US Pelvis TA/TV), 56675 (US Transvaginal) Reason For Exam pelvic pain, [...] Report Dictated on Final Dictating Physician: MD CONSTANTINO RISA Signed Date and Time: 09/22/2017 1:07 pm Signed by: MD CONSTANTINO RISA Transcribed Date and Time: 09/22/2017 1:08 Normal [facility] Otheron 01-16-2005 CONVERTED ELECTRONIC SIGNATURE DARINEL BETTS M.D., PATHOLOGIST (Electronic signature on file) Final Signed Out: 01/16/2005 14:36 [facility] CONVERTED FINAL DIAGNOSIS UTERUS AND BILATERAL OVARIES AND FALLOPIAN TUBES, HYSTERECTOMY/BILATERA L SALPINGO-OOPHORECTOMY - CERVIX - NO PATHOLOGIC ABNORMALITIES. ENDOMETRIUM - PROLIFERATIVE PHASE. MYOMETRIUM - LEIOMYOMATA AND ADENOMYOSIS. OVARIES, BILATERAL - FOCAL CHANGES SUGGESTING PREVIOUSLY TREATED ENDOMETRIOSIS. FALLOPIAN TUBES, BILATERAL - STATUS POST PARTIAL SALPINGECTOMIES. [facility] CONVERTED ORDERING PROVIDER Ordering Provider: ALEJANDRO SUÁREZ [facility] Otheron 05-27-2000 CONVERTED ELECTRONIC SIGNATURE TAINA JOEL M.D., PATHOLOGIST (Electronic signature on file) Final Signed Out: 05/27/2000 15:50 [facility] CONVERTED FINAL DIAGNOSIS SPECIMEN ADEQUACY SATISFACTORY FOR EVALUATION GENERAL CATEGORIZATION BENIGN CELLULAR CHANGES DESCRIPTIVE DIAGNOSIS HYPERKERATOSIS AND PARAKERATOSIS, PROLIFERATIVE SURFACE REACTIONS. HORMONAL EVALUATION HORMONAL PATTERN COMPATIBLE WITH AGE AND HISTORY RECOMMENDATION REPEAT WITHIN 1 YEAR, OR CLINICALLY INDICATED. [facility] CONVERTED ORDERING PROVIDER Ordering Provider: SONIA NORTON [facility] CONVERTED PAP DISCLAIMER The Pap test serves as a screening tool for early detection of cervical cancer. The Pap test does not represent a final diagnostic test for cervical cancer. Furthermore, the Pap test was not designed to screen for other malignancies (endometrial, ovarian cancer, etc....). False negatives and false positives have occurred. If clinically indicated, further patient evaluation is recommended. [facility] Vital Signs Date Time Vital Sign Value Performing Clinician Facility 02-19-2025 16:13-0400 Body height 157.48 cm Glendy Anderson AUTOMOTIVE SERVICES MANAGER-C Work Phone: [facility] 02-19-2025 16:13-0400 Body mass index (BMI) [Ratio] 33.3 kg/m2 Glendy Anderson AUTOMOTIVE SERVICES MANAGER-C Work Phone: [facility] 02-19-2025 16:13-0400 Body temperature 97.9 [degF] Glendy Anderson AUTOMOTIVE SERVICES MANAGER-C Work Phone: [facility] 02-19-2025 16:13-0400 Body weight 82.55 kg Glendy Anderson AUTOMOTIVE SERVICES MANAGER-C Work Phone: [facility] 02-19-2025 16:13-0400 Diastolic blood pressure 90 mm[Hg] Glendy Anderson AUTOMOTIVE SERVICES MANAGER-C Work Phone: [facility] 02-19-2025 16:13-0400 Heart rate 74 /min Glendy Anderson AUTOMOTIVE SERVICES MANAGER-C Work Phone: [facility] 02-19-2025 16:13-0400 Respiratory rate 18 /min Glendy Anderson AUTOMOTIVE SERVICES MANAGER-C Work Phone: [facility] 02-19-2025 16:13-0400 SaO2% (BldA) [Mass fraction] 94 % Glendy Anderson AUTOMOTIVE SERVICES MANAGER-C Work Phone: [facility] 02-19-2025 16:13-0400 Systolic blood pressure 142 mm[Hg] Glendy Anderson AUTOMOTIVE SERVICES MANAGER-C Work Phone: [facility] 02-15-2025 22:15-0400 Diastolic blood pressure 95 mm[Hg] Glendy Anderson DIGITAL PRODUCTION OPERATOR-MINE INSPECTOR FED[employer]AL Work Phone: [facility] 02-15-2025 22:15-0400 Heart rate 74 /min Glendy Anderson DIGITAL PRODUCTION OPERATOR-MINE INSPECTOR [employer]AL Work Phone: [facility] 02-15-2025 22:15-0400 Respiratory rate 16 /min Glendy Anderson DIGITAL PRODUCTION OPERATOR-MINE INSPECTOR [employer]ERAL Work Phone: [facility] 02-15-2025 22:15-0400 SaO2% (BldA) [Mass fraction] 96 % Glendy Anderson DIGITAL PRODUCTION OPERATOR-MINE INSPECTOR FEDERAL Work Phone: [facility] 02-15-2025 22:15-0400 Systolic blood pressure 139 mm[Hg] Glendy Anderson DIGITAL PRODUCTION OPERATOR-MINE INSPECTOR [employer]ERAL Work Phone: [facility] 02-15-2025 18:37-0400 Body height 154.9 cm Glendy Anderson DIGITAL PRODUCTION OPERATOR-MINE INSPECTOR [employer]ERAL Work Phone: [facility] 02-15-2025 18:37-0400 Body mass index (BMI) [Ratio] 33.63 kg/m2 Glendy Anderson DIGITAL PRODUCTION OPERATOR-MINE INSPECTOR [employer]AL Work Phone: [facility] 02-15-2025 18:37-0400 Body temperature 97.7 [degF] Glendy Anderson DIGITAL PRODUCTION OPERATOR-MINE INSPECTOR [employer]ERAL Work Phone: [facility] 02-15-2025 18:37-0400 Body weight 80.74 kg Glendy Anderson DIGITAL PRODUCTION OPERATOR-MINE INSPECTOR [employer]AL Work Phone: [facility] 02-01-2025 17:15-0400 Body height 157.48 cm Glendy Anderson AUTOMOTIVE SERVICES MANAGER-C Work Phone: [facility] 02-01-2025 17:15-0400 Body mass index (BMI) [Ratio] 32.5 kg/m2 Glendy Anderson AUTOMOTIVE SERVICES MANAGER-C Work Phone: [facility] 02-01-2025 17:15-0400 Body temperature 97.5 [degF] Glendytahir Anderson AUTOMOTIVE SERVICES MANAGER-C Work Phone: [facility] 02-01-2025 17:15-0400 Body weight 80.73 kg Glendytahir Anderson AUTOMOTIVE SERVICES MANAGER-C Work Phone: [facility] 02-01-2025 17:15-0400 Diastolic blood pressure 80 mm[Hg] Glnedy Anderson AUTOMOTIVE SERVICES MANAGER-C Work Phone: [facility] 02-01-2025 17:15-0400 Heart rate 74 /min Glendytahir Anderson AUTOMOTIVE SERVICES MANAGER-C Work Phone: [facility] 02-01-2025 17:15-0400 Respiratory rate 18 /min Glendytahir Anderson AUTOMOTIVE SERVICES MANAGER-C Work Phone: [facility] 02-01-2025 17:15-0400 SaO2% (BldA) [Mass fraction] 98 % Glendytahir Anderson AUTOMOTIVE SERVICES MANAGER-C Work Phone: [facility] 02-01-2025 17:15-0400 Systolic blood pressure 185 mm[Hg] Glendy Anderson AUTOMOTIVE SERVICES MANAGER-C Work Phone: [facility] 01-09-2025 15:13-0400 Body mass index (BMI) [Ratio] 32.5 kg/m2 Glendytahir Anderson AUTOMOTIVE SERVICES MANAGER-C Work Phone: [facility] 01-09-2025 15:13-0400 Body temperature 97.7 [degF] Glendy Anderson AUTOMOTIVE SERVICES MANAGER-C Work Phone: [facility] 01-09-2025 15:13-0400 Body weight 80.73 kg Glendy Anderson AUTOMOTIVE SERVICES MANAGER-C Work Phone: [facility] 01-09-2025 15:13-0400 Diastolic blood pressure 80 mm[Hg] Glendy Anderson AUTOMOTIVE SERVICES MANAGER-C Work Phone: [facility] 01-09-2025 15:13-0400 Heart rate 73 /min Glendy Anderson AUTOMOTIVE SERVICES MANAGER-C Work Phone: [facility] 01-09-2025 15:13-0400 Respiratory rate 18 /min Glendy Anderson AUTOMOTIVE SERVICES MANAGER-C Work Phone: [facility] 01-09-2025 15:13-0400 SaO2% (BldA) [Mass fraction] 73 % Glendy Anderson AUTOMOTIVE SERVICES MANAGER-C Work Phone: [facility] 01-09-2025 15:13-0400 Systolic blood pressure 168 mm[Hg] Glendy Anderson AUTOMOTIVE SERVICES MANAGER-C Work Phone: [facility] 11-30-2024 13:38-0400 Diastolic blood pressure 75 mm[Hg] Yadira Merida DO Work Phone: [employer] Comment on above: Pt reports she took her BP medication. P t educated to follow up with PC in regards to BP. 11-30-2024 13:38-0400 Heart rate 58 /min Yadira Merida DO Work Phone: [employer] 11-30-2024 13:38-0400 Respiratory rate 17 /min Yadira Merida DO Work Phone: [employer] 11-30-2024 13:38-0400 SaO2% (BldA) [Mass fraction] 96 % Yadira Merida DO Work Phone: [employer] 11-30-2024 13:38-0400 Systolic blood pressure 173 mm[Hg] Yadira Merida DO Work Phone: [employer] Comment on above: Pt reports she took her BP medication. P t educated to follow up with in regards to BP. 11-30-2024 10:34-0400 Body height 154.9 cm Yadira Merida DO Work Phone: [employer] 11-30-2024 10:34-0400 Body mass index (BMI) [Ratio] 32.88 kg/m2 Yadira Merida DO Work Phone: [facility] 11-30-2024 10:34-0400 Body temperature 98.01 [degF] Yadira Merida DO Work Phone: [facility] 11-30-2024 10:34-0400 Body weight 78.93 kg Yadira Merida DO Work Phone: [facility] 10-11-2024 16:33-0400 Body mass index (BMI) [Ratio] 31.8 kg/m2 Glendy Anderson AUTOMOTIVE SERVICES MANAGER-C Work Phone: [facility] 10-11-2024 16:33-0400 Body temperature 97.7 [degF] Glendy Anderson AUTOMOTIVE SERVICES MANAGER-C Work Phone: [facility] 10-11-2024 16:33-0400 Body weight 78.92 kg Glendy Anderson AUTOMOTIVE SERVICES MANAGER-C Work Phone: [facility] 10-11-2024 16:33-0400 Diastolic blood pressure 90 mm[Hg] Glendy Anderson AUTOMOTIVE SERVICES MANAGER-C Work Phone: [facility] 10-11-2024 16:33-0400 Heart rate 68 /min Glendy Anderson AUTOMOTIVE SERVICES MANAGER-C Work Phone: [facility] 10-11-2024 16:33-0400 Respiratory rate 18 /min Glendy Anderson AUTOMOTIVE SERVICES MANAGER-C Work Phone: [facility] 10-11-2024 16:33-0400 SaO2% (BldA) [Mass fraction] 98 % Glendy Anderson AUTOMOTIVE SERVICES MANAGER-C Work Phone: [facility] 10-11-2024 16:33-0400 Systolic blood pressure 150 mm[Hg] Glendy Anderson AUTOMOTIVE SERVICES MANAGER-C Work Phone: [facility] 02-02-2024 08:26-0400 Body height 154.[address] 02-02-2024 08:26-0400 Body mass index (BMI) [Ratio] 31.38 kg/m2 [address] 02-02-2024 08:26-0400 Body weight 75.3 kg [facility] 1 [facility] 01-11-2024 10:02-0400 Body height 154.9 cm Cheli Wright MD Work Phone: [facility] 01-11-2024 10:02-0400 Body mass index (BMI) [Ratio] 32.5 kg/m2 Cheli Wright MD Work Phone: [facility] 01-11-2024 10:02-0400 Body temperature 98.2 [degF] Cheli Wright MD Work Phone: [facility] 01-11-2024 10:02-0400 Body weight 78.02 kg Cheli Wright MD Work Phone: [facility] 01-11-2024 10:02-0400 Diastolic blood pressure 88 mm[Hg] Cheli Wright MD Work Phone: [facility] 01-11-2024 10:02-0400 Heart rate 73 /min Cheli Wright MD Work Phone: [facility] 01-11-2024 10:02-0400 SaO2% (BldA) [Mass fraction] 98 % Cheli Wright MD Work Phone: [facility] 01-11-2024 10:02-0400 Systolic blood pressure 126 mm[Hg] Cheli Wright MD Work Phone: [facility] 03-30-2023 18:32-0400 Body height 157.48 cm SUZIE Anderson AUTOMOTIVE SERVICES MANAGER Work Phone: [facility] 03-30-2023 18:32-0400 Body mass index (BMI) [Ratio] 31.4 kg/m2 SUZIE Anderson AUTOMOTIVE SERVICES MANAGER Work Phone: [facility] 03-30-2023 18:32-0400 Body temperature 97 [degF] AUTOMOTIVE SERVICES MANAGER-C Glendy Anderson AUTOMOTIVE SERVICES MANAGER Work Phone: [facility] 03-30-2023 18:32-0400 Body weight 78.01 kg AUTOMOTIVE SERVICES MANAGER-C Glendy Anderson AUTOMOTIVE SERVICES MANAGER Work Phone: [facility] 03-30-2023 18:32-0400 Diastolic blood pressure 80 mm[Hg] AUTOMOTIVE SERVICES MANAGER-C Glendy Anderson AUTOMOTIVE SERVICES MANAGER Work Phone: [facility] 03-30-2023 18:32-0400 Heart rate 72 /min AUTOMOTIVE SERVICES MANAGER-C Glendy Anderson AUTOMOTIVE SERVICES MANAGER Work Phone: [facility] 03-30-2023 18:32-0400 Respiratory rate 18 /min AUTOMOTIVE SERVICES MANAGER-C Glendy Anderson AUTOMOTIVE SERVICES MANAGER Work Phone: [facility] 03-30-2023 18:32-0400 SaO2% (BldA) [Mass fraction] 96 % AUTOMOTIVE SERVICES MANAGER-C Glendy Anderson AUTOMOTIVE SERVICES MANAGER Work Phone: [facility] 03-30-2023 18:32-0400 Systolic blood pressure 120 mm[Hg] AUTOMOTIVE SERVICES MANAGER-C Glendy Anderson AUTOMOTIVE SERVICES MANAGER Work Phone: [facility] 02-23-2023 08:09-0400 Body mass index (BMI) [Ratio] 30.9 kg/m2 AUTOMOTIVE SERVICES MANAGER-C Glendy Anderson AUTOMOTIVE SERVICES MANAGER Work Phone: [facility] 02-23-2023 08:09-0400 Body temperature 96.6 [degF] AUTOMOTIVE SERVICES MANAGER-C Glendy Anderson AUTOMOTIVE SERVICES MANAGER Work Phone: [facility] 02-23-2023 08:09-0400 Body weight 76.65 kg AUTOMOTIVE SERVICES MANAGER-C Glendy Anderson AUTOMOTIVE SERVICES MANAGER Work Phone: [facility] 02-23-2023 08:09-0400 Diastolic blood pressure 99 mm[Hg] AUTOMOTIVE SERVICES MANAGER-C Glendy Anderson AUTOMOTIVE SERVICES MANAGER Work Phone: [facility] 02-23-2023 08:09-0400 Heart rate 64 /min AUTOMOTIVE SERVICES MANAGER-C Glendy Anderson AUTOMOTIVE SERVICES MANAGER Work Phone: [facility] 02-23-2023 08:09-0400 Respiratory rate 18 /min AUTOMOTIVE SERVICES MANAGER-C Glendy Anderson AUTOMOTIVE SERVICES MANAGER Work Phone: [facility] 02-23-2023 08:09-0400 SaO2% (BldA) [Mass fraction] 96 % AUTOMOTIVE SERVICES MANAGER-C Glendy Dominguezson AUTOMOTIVE SERVICES MANAGER Work Phone: [facility] 02-23-2023 08:09-0400 Systolic blood pressure 161 mm[Hg] AUTOMOTIVE SERVICES MANAGER-C Glendy Dominguezson AUTOMOTIVE SERVICES MANAGER Work Phone: [facility] 02-11-2023 21:28-0400 Body mass index (BMI) [Ratio] 32.5 kg/m2 AUTOMOTIVE SERVICES MANAGER-C Glendy Anderson AUTOMOTIVE SERVICES MANAGER Work Phone: [facility] 02-11-2023 21:28-0400 Body temperature 96.8 [degF] AUTOMOTIVE SERVICES MANAGER-C Glendy Anderson AUTOMOTIVE SERVICES MANAGER Work Phone: [facility] 02-11-2023 21:28-0400 Body weight 80.73 kg AUTOMOTIVE SERVICES MANAGER-C Glendy Anderson AUTOMOTIVE SERVICES MANAGER Work Phone: [facility] 02-11-2023 21:28-0400 Diastolic blood pressure 70 mm[Hg] AUTOMOTIVE SERVICES MANAGER-C Glendy Dominguezson AUTOMOTIVE SERVICES MANAGER Work Phone: [facility] 02-11-2023 21:28-0400 Heart rate 80 /min AUTOMOTIVE SERVICES MANAGER-C Glendy Dominguezson AUTOMOTIVE SERVICES MANAGER Work Phone: [facility] 02-11-2023 21:28-0400 Respiratory rate 18 /min AUTOMOTIVE SERVICES MANAGER-C Glendytahir DominguezAnderson AUTOMOTIVE SERVICES MANAGER Work Phone: [facility] 02-11-2023 21:28-0400 SaO2% (BldA) [Mass fraction] 96 % AUTOMOTIVE SERVICES MANAGER-C Glendy Dominguezson AUTOMOTIVE SERVICES MANAGER Work Phone: [facility] 02-11-2023 21:28-0400 Systolic blood pressure 130 mm[Hg] AUTOMOTIVE SERVICES MANAGER-C Glendy Dominguezson AUTOMOTIVE SERVICES MANAGER Work Phone: [facility] 01-27-2023 17:01-0400 Body height 157.48 cm AUTOMOTIVE SERVICES MANAGER-C Glendy Anderson AUTOMOTIVE SERVICES MANAGER Work Phone: [facility] 01-27-2023 17:01-0400 Body mass index (BMI) [Ratio] 32.5 kg/m2 AUTOMOTIVE SERVICES MANAGER-C Glendy Anderson AUTOMOTIVE SERVICES MANAGER Work Phone: [facility] 01-27-2023 17:01-0400 Body temperature 97.7 [degF] AUTOMOTIVE SERVICES MANAGER-C Glendy Anderson AUTOMOTIVE SERVICES MANAGER Work Phone: [facility] 01-27-2023 17:01-0400 Body weight 80.73 kg AUTOMOTIVE SERVICES MANAGER-C Glendy Anderson AUTOMOTIVE SERVICES MANAGER Work Phone: [facility] 01-27-2023 17:01-0400 Diastolic blood pressure 84 mm[Hg] AUTOMOTIVE SERVICES MANAGER-C Glendy Anderson AUTOMOTIVE SERVICES MANAGER Work Phone: [facility] 01-27-2023 17:01-0400 Heart rate 70 /min AUTOMOTIVE SERVICES MANAGER-C Glendy Anderson AUTOMOTIVE SERVICES MANAGER Work Phone: [facility] 01-27-2023 17:01-0400 Respiratory rate 18 /min AUTOMOTIVE SERVICES MANAGER-C Glendy Anderson AUTOMOTIVE SERVICES MANAGER Work Phone: [facility] 01-27-2023 17:01-0400 SaO2% (BldA) [Mass fraction] 95 % AUTOMOTIVE SERVICES MANAGER-C Glendy Anderson AUTOMOTIVE SERVICES MANAGER Work Phone: [facility] 01-27-2023 17:01-0400 Systolic blood pressure 178 mm[Hg] AUTOMOTIVE SERVICES MANAGER-C Glendy Anderson AUTOMOTIVE SERVICES MANAGER Work Phone: [facility] 12-10-2022 17:14-0400 Body mass index (BMI) [Ratio] 32.3 kg/m2 AUTOMOTIVE SERVICES MANAGER-C Glendy Anderson AUTOMOTIVE SERVICES MANAGER Work Phone: [facility] 12-10-2022 17:14-0400 Body temperature 97.9 [degF] AUTOMOTIVE SERVICES MANAGER-C Glendy Anderson AUTOMOTIVE SERVICES MANAGER Work Phone: [facility] 12-10-2022 17:14-0400 Body weight 80.28 kg AUTOMOTIVE SERVICES MANAGER-C Glendy Anderson AUTOMOTIVE SERVICES MANAGER Work Phone: [facility] 12-10-2022 17:14-0400 Diastolic blood pressure 70 mm[Hg] AUTOMOTIVE SERVICES MANAGER-C Glendy Anderson AUTOMOTIVE SERVICES MANAGER Work Phone: [facility] 12-10-2022 17:14-0400 Heart rate 79 /min AUTOMOTIVE SERVICES MANAGER-C Glendy Anderson AUTOMOTIVE SERVICES MANAGER Work Phone: [facility] 12-10-2022 17:14-0400 Respiratory rate 18 /min AUTOMOTIVE SERVICES MANAGER-C Glendy Anderson AUTOMOTIVE SERVICES MANAGER Work Phone: [facility] 12-10-2022 17:14-0400 SaO2% (BldA) [Mass fraction] 97 % AUTOMOTIVE SERVICES MANAGER-C Glendy Anderson AUTOMOTIVE SERVICES MANAGER Work Phone: [facility] 12-10-2022 17:14-0400 Systolic blood pressure 130 mm[Hg] AUTOMOTIVE SERVICES MANAGER-C Glendy Anderson AUTOMOTIVE SERVICES MANAGER Work Phone: [facility] 11-03-2022 08:11-0400 Body height 157.48 cm AUTOMOTIVE SERVICES MANAGER-C Glendy Anderson AUTOMOTIVE SERVICES MANAGER Work Phone: [facility] 11-03-2022 08:06-0400 Body mass index (BMI) [Ratio] 32 kg/m2 AUTOMOTIVE SERVICES MANAGER-C Glendy Anderson AUTOMOTIVE SERVICES MANAGER Work Phone: [facility] 11-03-2022 08:06-0400 Body temperature 97 [degF] AUTOMOTIVE SERVICES MANAGER-C Glendy Anderson AUTOMOTIVE SERVICES MANAGER Work Phone: [facility] 11-03-2022 08:06-0400 Body weight 79.37 kg AUTOMOTIVE SERVICES MANAGER-C Glendy Anderson AUTOMOTIVE SERVICES MANAGER Work Phone: [facility] 11-03-2022 08:06-0400 Diastolic blood pressure 95 mm[Hg] AUTOMOTIVE SERVICES MANAGER-C Glendy Anderson AUTOMOTIVE SERVICES MANAGER Work Phone: [facility] 11-03-2022 08:06-0400 Heart rate 87 /min AUTOMOTIVE SERVICES MANAGER-C Glendy Anderson AUTOMOTIVE SERVICES MANAGER Work Phone: [facility] 11-03-2022 08:06-0400 Respiratory rate 18 /min AUTOMOTIVE SERVICES MANAGER-C Glendy Anderson AUTOMOTIVE SERVICES MANAGER Work Phone: [facility] 11-03-2022 08:06-0400 SaO2% (BldA) [Mass fraction] 98 % AUTOMOTIVE SERVICES MANAGER-C Glendy Anderson AUTOMOTIVE SERVICES MANAGER Work Phone: [facility] 11-03-2022 08:06-0400 Systolic blood pressure 187 mm[Hg] AUTOMOTIVE SERVICES MANAGER-C Glendy Anderson AUTOMOTIVE SERVICES MANAGER Work Phone: [facility] 10-19-2022 15:47-0400 Body mass index (BMI) [Ratio] 31.6 kg/m2 AUTOMOTIVE SERVICES MANAGER-C Glendy Anderson AUTOMOTIVE SERVICES MANAGER Work Phone: [phone] [place] [address] 10-19-2022 15:47-0400 Body temperature 97.9 [degF] AUTOMOTIVE SERVICES MANAGER-C Glendy Anderson AUTOMOTIVE SERVICES MANAGER Work Phone: [phone] [place] [address] 10-19-2022 15:47-0400 Body weight 78.47 kg AUTOMOTIVE SERVICES MANAGER-C Glendy Anderson AUTOMOTIVE SERVICES MANAGER Work Phone: [facility] 10-19-2022 15:47-0400 Diastolic blood pressure 70 mm[Hg] AUTOMOTIVE SERVICES MANAGER-C Glendy Anderson AUTOMOTIVE SERVICES MANAGER Work Phone: [facility] 10-19-2022 15:47-0400 Heart rate 73 /min AUTOMOTIVE SERVICES MANAGER-C Glendy Anderson AUTOMOTIVE SERVICES MANAGER Work Phone: [facility] 10-19-2022 15:47-0400 Respiratory rate 18 /min AUTOMOTIVE SERVICES MANAGER-C Glendy Anderson AUTOMOTIVE SERVICES MANAGER Work Phone: [facility] 10-19-2022 15:47-0400 SaO2% (BldA) [Mass fraction] 97 % AUTOMOTIVE SERVICES MANAGER-C Glendy Anderson AUTOMOTIVE SERVICES MANAGER Work Phone: [facility] 10-19-2022 15:47-0400 Systolic blood pressure 120 mm[Hg] AUTOMOTIVE SERVICES MANAGER-C Glendy Anderson AUTOMOTIVE SERVICES MANAGER Work Phone: [facility] 10-01-2022 18:49-0500 Body mass index (BMI) [Ratio] 32.9 kg/m2 AUTOMOTIVE SERVICES MANAGER-C Glendy Anderson AUTOMOTIVE SERVICES MANAGER Work Phone: [facility] 10-01-2022 18:49-0500 Body temperature 97.7 [degF] AUTOMOTIVE SERVICES MANAGER-C Glendy Anderson AUTOMOTIVE SERVICES MANAGER Work Phone: [facility] 10-01-2022 18:49-0500 Body weight 81.64 kg AUTOMOTIVE SERVICES MANAGER-C Glendy Anderson AUTOMOTIVE SERVICES MANAGER Work Phone: [facility] 10-01-2022 18:49-0500 Diastolic blood pressure 80 mm[Hg] AUTOMOTIVE SERVICES MANAGER-C Glendy Dominguezson AUTOMOTIVE SERVICES MANAGER Work Phone: [facility] 10-01-2022 18:49-0500 Heart rate 81 /min AUTOMOTIVE SERVICES MANAGER-C Glendy Anderson AUTOMOTIVE SERVICES MANAGER Work Phone: [facility] 10-01-2022 18:49-0500 Respiratory rate 18 /min AUTOMOTIVE SERVICES MANAGER-C Glendy Anderson AUTOMOTIVE SERVICES MANAGER Work Phone: [facility] 10-01-2022 18:49-0500 SaO2% (BldA) [Mass fraction] 95 % AUTOMOTIVE SERVICES MANAGER-C Glendy Anderson AUTOMOTIVE SERVICES MANAGER Work Phone: [facility] 10-01-2022 18:49-0500 Systolic blood pressure 130 mm[Hg] AUTOMOTIVE SERVICES MANAGER-C Glendy Anderson AUTOMOTIVE SERVICES MANAGER Work Phone: [facility] 07-28-2022 15:35-0500 Body height 157.48 cm [facility] Work Phone: 07-28-2022 15:35-0500 Body mass index (BMI) [Ratio] 32 kg/m2 [facility] 07-28-2022 15:35-0500 Body temperature 97.7 [degF] [facility] 07-28-2022 15:35-0500 Body weight 79.37 kg [facility] 07-28-2022 15:35-0500 Diastolic blood pressure 74 mm[Hg] [facility] 07-28-2022 15:35-0500 Heart rate 74 /min [facility] 07-28-2022 15:35-0500 Respiratory rate 18 /min [facility] 07-28-2022 15:35-0500 SaO2% (BldA) [Mass fraction] 97 % [facility] 07-28-2022 15:35-0500 Systolic blood pressure 140 mm[Hg] [facility] 04-13-2022 15:46-0400 Body mass index (BMI) [Ratio] 31.4 kg/m2 [facility] Work Phone: 04-13-2022 15:46-0400 Body temperature 96.8 [degF] [facility] Work Phone: 04-13-2022 15:46-0400 Body weight 78.01 kg [facility] Work Phone: 04-13-2022 15:46-0400 Diastolic blood pressure 76 mm[Hg] [facility] Work Phone: 04-13-2022 15:46-0400 Heart rate 86 /min [facility] Work Phone: 04-13-2022 15:46-0400 Respiratory rate 18 /min [facility] Work Phone: 04-13-2022 15:46-0400 SaO2% (BldA) [Mass fraction] 96 % [facility] Work Phone: 04-13-2022 15:46-0400 Systolic blood pressure 140 mm[Hg] [facility] Work Phone: 02-11-2022 10:57-0400 Body height 154.9 cm Mathieu Menendez MD Work Phone: [facility] 02-11-2022 10:57-0400 Body weight 77.11 kg Mathieu Menendez MD Work Phone: [facility] 02-11-2022 10:57-0400 Diastolic blood pressure 90 mm[Hg] Mathieu Menendez MD Work Phone: [facility] 02-11-2022 10:57-0400 Heart rate 70 /min Mathieu Menendez MD Work Phone: [facility] 02-11-2022 10:57-0400 Systolic blood pressure 140 mm[Hg] Mathieu Menendez MD Work Phone: [facility] 01-28-2022 09:33-0400 Body height 154.9 cm Mathieu Menendez MD Work Phone: [facility] 01-28-2022 09:33-0400 Body weight 78.16 kg Mathieu Menendez MD Work Phone: [facility] 01-28-2022 09:33-0400 Diastolic blood pressure 74 mm[Hg] Mathieu Menendez MD Work Phone: [facility] 01-28-2022 09:33-0400 Heart rate 85 /min Mathieu Menendez MD Work Phone: [facility] 01-28-2022 09:33-0400 SaO2% (BldA) [Mass fraction] 100 % Mathieu Menendez MD Work Phone: [facility] 01-28-2022 09:33-0400 Systolic blood pressure 158 mm[Hg] Mathieu Menendez MD Work Phone: [facility] 01-15-2022 18:03-0400 Body height 157.48 cm [facility] Work Phone: 01-15-2022 18:03-0400 Body mass index (BMI) [Ratio] 29.9 kg/m2 [facility] Work Phone: 01-15-2022 18:03-0400 Body temperature 98.1 [degF] [facility] Work Phone: 01-15-2022 18:03-0400 Body weight 74.38 kg [facility] Work Phone: 01-15-2022 18:03-0400 Diastolic blood pressure 70 mm[Hg] [facility] Work Phone: 01-15-2022 18:03-0400 Heart rate 87 /min [facility] Work Phone: 01-15-2022 18:03-0400 Respiratory rate 8 /min [facility] Work Phone: 01-15-2022 18:03-0400 SaO2% (BldA) [Mass fraction] 94 % [facility] Work Phone: 01-15-2022 18:03-0400 Systolic blood pressure 122 mm[Hg] [facility] Work Phone: 01-13-2022 14:37-0400 Body mass index (BMI) [Ratio] 29.9 kg/m2 [facility] Work Phone: 01-13-2022 14:37-0400 Body temperature 97.2 [degF] [facility] Work Phone: 01-13-2022 14:37-0400 Body weight 74.38 kg [facility] Work Phone: 01-13-2022 14:37-0400 Diastolic blood pressure 74 mm[Hg] [facility] Work Phone: 01-13-2022 14:37-0400 Heart rate 73 /min [facility] Work Phone: 01-13-2022 14:37-0400 Respiratory rate 18 /min [facility] Work Phone: 01-13-2022 14:37-0400 SaO2% (BldA) [Mass fraction] 95 % [facility] Work Phone: 01-13-2022 14:37-0400 Systolic blood pressure 112 mm[Hg] [facility] Work Phone: 01-09-2022 10:22-0400 Body height 154.9 cm Darline Barnhart MD Work Phone: [facility] 01-09-2022 10:22-0400 Body weight 79.38 kg Darline Barnhart MD Work Phone: [facility] 01-09-2022 10:22-0400 Diastolic blood pressure 88 mm[Hg] Darline Barnhart MD Work Phone: [facility] 01-09-2022 10:22-0400 Systolic blood pressure 142 mm[Hg] Darline Barnhart MD Work Phone: [facility] Encounters Encounter Date Encounter Type Care Provider Facility Start: 03-21-2025 End: 03-21-2025 ambulatory GLENDY ANDERSON Facility:[facility] Start: 03-20-2025 End: 03-20-2025 ambulatory GLENDY ANDERSON Facility:[facility] Start: 03-16-2025 ambulatory GLENDYTahir ANDERSON Facil ity:[facility] Start: 03-16-2025 End: 03-16-2025 Subsequent hospital visit by physician Stress Lab 1 [facility] Work Phone: Cardiology Lab Comment on above: Syncope and collapse [R55] Start: 03-16-2025 ambulatory GLENDY Rhiannon ANDERSON Facil ity:[facility] Start: 03-16-2025 End: 03-16-2025 Subsequent hospital visit by physician [facility] 2 Work Phone: Molecular Imaging Comment on above: Syncope and collapse [R55] Start: 03-15-2025 End: 04-05-2025 Telephone encounter Radha Wright RN Cardiology Lab Start: 03-09-2025 End: 03-09-2025 Subsequent hospital visit by physician [facility] Comment on above: Syncope and collapse Start: 03-09-2025 End: 03-09-2025 ambulatory [facility] Start: 02-28-2025 End: 02-28-2025 ambulatory GLENDY ANDERSON Facility:[facility] Start: 02-22-2025 End: 02-22-2025 ambulatory GLENDY ANDERSON Facility:[facility] Start: 02-19-2025 End: 02-19-2025 ambulatory Glendy Anderson AUTOMOTIVE SERVICES MANAGER-C Work Phone: -Laboratory Specimen Start: 02-19-2025 End: 02-19-2025 Patient encounter procedure Glendy Anderson AUTOMOTIVE SERVICES MANAGER-C -Laboratory Specimen Work Phone: Start: 02-19-2025 End: 02-19-2025 ambulatory Glendy Anderson AUTOMOTIVE SERVICES MANAGER Facility:[facility] Start: 02-15-2025 End: 02-15-2025 Emergency department patient visit GLENDY Jurado ANDERSON [facility] Emergency Medicine Comment on above: Syncope, unspecified syncope type (Primary Dx) Start: 02-01-2025 End: 02-01-2025 ambulatory Glendy Anderson AUTOMOTIVE SERVICES MANAGER-C Work Phone: -Laboratory Specimen Start: 02-01-2025 End: 02-01-2025 Patient encounter procedure Glendy Anderson AUTOMOTIVE SERVICES MANAGER-C -Laboratory Specimen Work Phone: Start: 02-01-2025 End: 02-01-2025 ambulatory Glendy Anderson AUTOMOTIVE SERVICES MANAGER Facility:[facility] Start: 11-30-2024 End: 11-30-2024 Emergency department patient visit Yadira Mcdaniel Marielalata Work Phone: [facility] ED Comment on above: Lower abdominal pain (Primary Dx) Start: 07-17-2024 End: 07-17-2024 ambulatory Glendy Anderson AUTOMOTIVE SERVICES MANAGER Facility:[facility] Start: 03-21-2024 ambulatory Glendytahir Anderson AUTOMOTIVE SERVICES MANAGER Faci lity:[facility] Start: 03-09-2024 End: 03-09-2024 ambulatory Glendy Anderson AUTOMOTIVE SERVICES MANAGER Facility:[facility] Start: 02-02-2024 End: 02-02-2024 ambulatory [facility] Start: 02-02-2024 End: 02-02-2024 Subsequent hospital visit by physician Ju [id number] Ultrasound 1 [facility] Comment on above: Screening mammogram for breast cancer; Abnormal mammogram Start: 02-02-2024 End: 02-02-2024 ambulatory [facility] Start: 01-25-2024 End: 01-25-2024 Subsequent hospital visit by physician Rad External Film EF [facility] EXTERNAL [facility]M [facility] Comment on above: Arrived Start: 01-11-2024 End: 01-11-2024 Office outpatient new 45 minutes Cheli Wright MD Work Phone: [facility] Family [facility] Internal Medicine/Peds Comment on above: Screening mammogram for breast cancer (Primary Dx); Abnormal mammogram; Obstructive sleep apnea syndrome; Routine general medical examination at a health care facility; Type 2 diabetes mellitus without complication, without long-term current use of insulin (Multi) Start: 01-11-2024 End: 01-11-2024 Patient encounter status Cheli Wright MD Work Phone: [facility] Work Phone: Start: 01-11-2024 End: 01-11-[address] [facility] Start: 01-11-2024 End: 01-11-2024 Encounter for general adult medical examination without abnormal findings [facility] Start: 06-10-2023 Telephone encounter Mathieu davila MD Work Phone: General Surgery Start: 03-30-2023 End: 03-30-2023 ambulatory AUTOMOTIVE SERVICES MANAGER-Leslie Anderson AUTOMOTIVE SERVICES MANAGER Work Phone: [facility] Work Phone: Start: 03-30-2023 End: 03-30-2023 Patient encounter procedure AUTOMOTIVE SERVICES MANAGER-Leslie Anderson AUTOMOTIVE SERVICES MANAGER Work Phone: [facility]-Laboratory, Specimen Work Phone: Start: 03-24-2023 E-mail encounter fro m caregiver Darline Barnhart MD Work Phone: [facility] Start: 03-24-2023 Follow-up encounter Darline Barnhart MD Work Phone: [facility] General Obstetrics & Gynecology Comment on above: reminder to gete fol low up images Start: 03-18-[address] El Romeo acility:[id number] Start: 02-23-2023 End: 02-23-2023 Patient encounter procedure AUTOMOTIVE SERVICES MANAGER-Leslie Anderson AUTOMOTIVE SERVICES MANAGER Work Phone: [facility] Work Phone: Start: 02-10-2023 Orders Only Mathieu Menendez MD Work Phone: General Surgery Comment on above: Encounter for screen ing for malignant neoplasm of colon (Primary Dx); Family history of colonic polyps Start: 01-27-2023 End: 01-27-2023 ambulatory AUTOMOTIVE SERVICES MANAGER-C Glendy Anderson AUTOMOTIVE SERVICES MANAGER Work Phone: [facility] Work Phone: Start: 01-27-2023 End: 01-27-2023 Patient encounter procedure AUTOMOTIVE SERVICES MANAGER-Leslie Anderson AUTOMOTIVE SERVICES MANAGER Work Phone: [facility]-Laboratory, Specimen Work Phone: Start: 11-18-2022 Non-patient / Non-visit AUTOMOTIVE SERVICES MANAGER-C Carrie Anderson AUTOMOTIVE SERVICES MANAGER Work Phone: [facility] Start: 11-17-2022 End: 11-17-2022 ambulatory AUTOMOTIVE SERVICES MANAGER-C Glendy Anderson AUTOMOTIVE SERVICES MANAGER Work Phone: [facility] Work Phone: Start: 11-17-2022 End: 11-17-2022 Patient encounter procedure AUTOMOTIVE SERVICES MANAGER-Leslie Anderson AUTOMOTIVE SERVICES MANAGER Work Phone: [facility]-Pulmonary Services/Neurology Start: 11-13-2022 End: 11-13-2022 Patient encounter procedure AUTOMOTIVE SERVICES MANAGER-Leslie Anderson AUTOMOTIVE SERVICES MANAGER Work Phone: [facility]-Sleep Lab Start: 11-04-2022 Telephone encounter Darline Barnhart MD Work Phone: [facility] Obstetrics & Gynecology Comment on above: Results Start: 11-03-2022 End: 11-03-2022 ambulatory AUTOMOTIVE SERVICES MANAGER-C Glendy Anderson AUTOMOTIVE SERVICES MANAGER Work Phone: [facility] Work Phone: Start: 11-03-2022 End: 11-03-2022 Patient encounter procedure AUTOMOTIVE SERVICES MANAGER-Leslie Anderson AUTOMOTIVE SERVICES MANAGER Work Phone: [facility]-Laboratory, OP Pavilion Start: 11-03-2022 End: 11-03-2022 Patient encounter procedure SUZIE Anderson NP Work Phone: [facility]-Pulmonary Medicine [facility] Start: 11-02-2022 End: 11-02-2022 Subsequent hospital visit by physician Screen/Diagnostic Mammo 2 [facility] Work Phone: Mammography Comment on above: Follow-up examinatio n of abnormal mammogram [R92.8] Start: 10-27-2022 ambulatory Darline rhodes MD Work Phone: [facility] Obstetrics and Gynecology Comment on above: Juan Olsen Start: 07-28-2022 End: 07-28-2022 ambulatory [facility] Work Phone: Start: 07-28-2022 End: 07-28-2022 Patient encounter procedure [facility]-Laboratory, Specimen Start: 03-10-2022 Telephone encounter Darline Barnhart MD Work Phone: [facility] Obstetrics and Gynecology Comment on above: Results Start: 03-02-2022 End: 03-02-2022 Subsequent hospital visit by physician Screen/Diagnostic Mammo 2 [facility] Work Phone: Mammography Start: 02-11-2022 End: 02-11-2022 Subsequent hospital visit by physician [facility] Start: 02-11-2022 End: 02-11-2022 Patient encounter procedure Mathieu Menendez MD Work Phone: General Surgery Comment on above: Infection in abdomen (HCC) Start: 01-28-2022 End: 01-28-2022 Patient encounter procedure Mathieu Menendez MD Work Phone: General Surgery Comment on above: Generalized abdomina l pain (Primary Dx) Start: 01-14-2022 Telephone encounter Darline Barnhart MD Work Phone: [facility] Obstetrics and Gynecology Comment on above: Results (Mammogream results) Start: 01-13-2022 End: 01-13-2022 Patient encounter procedure [facility]-Laboratory, Specimen Start: 01-13-2022 Documentation procedure Mammography Coordinator [facility] Start: 01-13-2022 Letter encounter Mammography Coordin ator [facility] Department Start: 01-13-2022 End: 01-13-2022 Orders Only Darline Barnhart MD Work Phone: [facility] Obstetrics & Gynecology Comment on above: Abnormal mammogram ( Primary Dx) Encounter for screen ing mammogram for breast cancer [Z12.31] Start: 01-09-2022 End: 01-09-2022 ambulatory DARLINE BARNHART Facility:[facility] Start: 01-09-2022 Encounter for gynecological examination (general) (routine) without abnormal findings DARLINE BARNHART [facility] Start: 01-09-2022 End: 01-09-2022 Patient encounter procedure Darline Barnhart MD Work Phone: [facility] Obstetrics and Gynecology Comment on above: Encounter for gyneco logical examination (general) (routine) without abnormal findings; Encounter for screening mammogram for breast cancer Start: 01-09-2022 End: 01-09-2022 Patient encounter status Darline Barnhart MD Work Phone: [facility] Obstetrics and Gynecology Start: 06-27-2021 End: 06-27-2021 Subsequent hospital visit by physician [facility] [employer] [facility] (Lg Bore/3t) Radiology Comment on above: Pain in hip [M25.559 ] Start: 06-10-2021 End: 06-10-2021 Subsequent hospital visit by physician [facility] Work Phone: Radiology Comment on above: Pain [R52] Start: 05-10-2020 End: 05-10-2020 Refill Darline Barnhart Work Phone: [facility] Obstetrics and Gynecology Comment on above: Refill Request; Refi ll Request Start: 01-15-2020 End: 01-15-2020 Subsequent hospital visit by physician Felipe Pederson Work Phone: [facility] X-Ray Comment on above: Arrived Start: 01-03-2020 End: 01-03-2020 Subsequent hospital visit by physician Felipe Pederson Work Phone: [facility] MRI Comment on above: Arrived Start: 10-19-2019 Patient encounter status [facility] Start: 04-22-2018 End: 04-22-2018 Patient encounter Kit BARNHART Facility:[facility] Start: 03-07-2018 End: 03-08-2018 Patient encounter Kit BARNHART Facility:[facility] Start: 03-07-2018 End: 03-07-2018 Patient encounter Kit BARNHART Facility:[facility] Start: 09-22-2017 Emergency department patient visit [facility] Start: 01-14-2005 End: 01-14-2005 Patient encounter procedure Alejandro Baconrodríguez Work Phone: [facility] Start: 01-14-2005 Results Only Alejandro Greenfield Sima christophertahir Work Phone: [facility] Start: 05-19-2000 End: 05-19-2000 Patient encounter procedure Sonia Norton Work Phone: [facility] Start: 05-19-2000 Results Only Soniamarvin lentz Work Phone: [facility] Procedures Date Procedure Procedure Detail Performing Clinician Start: 02-15-2025 Assay of troponin quantitative Milly Francois DIGITAL PRODUCTION OPERATOR-MINE INSPECTOR [employer] Work Phone: Start: 02-15-2025 Radiologic exam ches t single view Milly Mccoyderback DIGITAL PRODUCTION OPERATOR-MINE INSPECTOR [employer] Work Phone: Start: 02-15-2025 Comprehensive metabo lic panel Milly Francois DIGITAL PRODUCTION OPERATOR-MINE INSPECTOR [employer] Work Phone: Start: 02-15-2025 URIBE TOP Willian Jones DO Work Phone: Start: 02-15-2025 Troponin I.cardiac p joan - Serum or Plasma by High sensitivity method Milly Mccoyderback DIGITAL PRODUCTION OPERATOR-MINE INSPECTOR [employer] Work Phone: Start: 02-01-2025 Reactive lymphocyte count Glendy Anderson AUTOMOTIVE SERVICES MANAGER-C Work Phone: Start: 02-01-2025 Serum globulin measurement Glendy Anderson AUTOMOTIVE SERVICES MANAGER-C Work Phone: Start: 11-30-2024 Ct abdomen & [...] any jt lower ext rem w/o contrast maryl Demond Taylor MD Work Phone: Start: 06-10-2021 Radex hip unilateral with pelvis 2-3 views Donald Campo DO Work Phone: Start: 01-15-2020 Arthrocentesis aspir &/inj major jt/bursa w/o us Felipe Pederson Work Phone: Start: 01-03-2020 MRI LOWER EXTREMITY LEFT W JT W CONTRAST Felipe Pederson Work Phone: Start: 01-03-2020 Arthrocentesis aspir &/inj major jt/bursa w/o us Felipe R Abdoulayei Work Phone: Start: 12-18-2018 Lipid 1996 panel - S rosalee or Plasma Xr Rej Work Phone: Start: 04-22-2018 Colonoscopy Darline Barnhart MD Work Phone: Start: 03-10-2018 Mammography Alejandro arreguin Start: 01-14-2005 CONVERTED SURGICAL PATHOLOGY Alejandro Suárez Work Phone: Start: 05-19-2000 CONVERTED CYTOLOGY HOME OFFICE CLAIMS EXAMINER Sonia Norton Work Phone: Plan of Treatment Date Care Activity Detail Author Start: 01-02-2036 RSV High Risk: (Elde rly (60+) or Population) (1 - 1-dose 75+ series) RSV High Risk: (Elderly (60+) or Population) (1 - 1-dose 75+ series) [facility] Start: 01-02-2036 RSV Immunization for Adults (1 - 1-dose 75+ series) RSV Immunization for Adults (1 - 1-dose 75+ series) [facility] Start: 01-02-2036 RSV Vaccine (1 - 1-d ose 75+ series) RSV Vaccine (1 - 1-dose 75+ series) [facility] Start: 07-23-2033 Screening for malign ant neoplasm of colon [facility] Start: 01-10-2029 Lipid panel Lipid Screening [facility] Start: 03-24-2028 Lipid panel Lipid Screening [facility] Start: 02-16-2028 Diabetes Screening Diabetes Screenin [facility] Start: 03-24-2026 Diabetes Screening Diabetes Screenin [facility] Start: 11-30-2025 Diabetes: Estimated Glomerular Filtration Rate for Kidney Health Diabetes: Estimated Glomerular Filtration Rate for Kidney Health [facility] Start: 04-02-2025 Influenza vaccination [facility] Start: 02-01-2025 Screening for malign ant neoplasm of breast [facility] Start: 01-17-2025 DIABET[facility]CREEN [facility] Start: 01-17-2025 Diabetes Screening Diabetes Screenin g [facility] Start: 01-10-2025 Hemoglobin A1c measurement Diabetes: Hemoglobin A1C [facility] Start: 01-10-2025 Lipid panel Lipid Panel [facility] Start: 01-10-2025 Thyroid stimulating hormone measurement TSH Level [facility] Start: 07-23-2024 Screening for malign ant neoplasm of colon [facility] Start: 05-16-2024 End: 05-16-2024 Patient encounter procedure 05/16/2024 11:30 AM EDT Office Visit [facility] [address] [facility] [address] [place] [id number] Tammy Giordano, DIGITAL PRODUCTION OPERATOR-MINE INSPECTOR FEDERAL [address] [facility] [address] [place] [address] [facility] Start: 04-12-2024 Hemoglobin A1c measurement Diabetes: Hemoglobin A1C [facility] Start: 04-02-2024 Covid-19 Vaccine ( season) Covid-19 Vaccine ( season) [facility] Start: 04-02-2024 Influenza vaccination [facility] Start: 03-24-2024 Lipid panel Lipid Panel [facility] Start: 02-02-2024 End: 02-02-2024 Patient encounter procedure [facility] Start: 01-11-2024 End: 01-10-2025 Comprehensive metabolic 2000 panel - Serum or Plasma [facility] Work Phone: Comment on above: Expected: 01/11/2024 (Approximate), Expires: 01/10/2025 Start: 01-11-2024 End: 01-10-2025 Lipid 1996 panel - Serum or Plasma [facility] Work Phone: Comment on above: Expected: 01/11/2024 (Approximate), Expires: 01/10/2025 Start: 01-11-2024 End: 03-12-2025 MG Breast - bilateral Diagnostic BI mammo bilateral diagnostic Imaging Routine Screening mammogram for breast cancer Abnormal mammogram Expected: 01/11/2024, Expires: 03/12/2025 [facility] Service Area Work Phone: Comment on above: Expected: 01/11/2024 , Expires: 03/12/2025 Start: 01-11-2024 End: 01-10-2025 TSH with reflex to Free T4 if abnormal [facility] Work Phone: Comment on above: Expected: 01/11/2024 (Approximate), Expires: 01/10/2025 Start: 01-11-2024 End: 03-12-2025 US Breast - right BI US breast complete right Imaging Routine Screening mammogram for breast cancer Abnormal mammogram Expected: 01/11/2024, Expires: 03/12/2025 [facility] Work Phone: Comment on above: Expected: 01/11/2024 , Expires: 03/12/2025 Start: 12-19-2023 Lipid 1996 panel - S rosalee or Plasma Lipid Screening [facility] Start: 12-19-2023 LIPID SCREEN LIPID SCREEN [facility] Start: 11-03-2023 Screening for malign ant neoplasm of breast Mammogram [facility] Start: 06-20-2023 DIABETES SCREEN DIABETES SCREEN [facility] Start: 04-02-2023 COVID-19 Vaccine ( season) COVID-19 Vaccine () [facility] Start: 04-02-2023 Influenza vaccination [facility] Start: 03-14-2023 Lipid panel Lipid screen [facility]- [place], [place] Start: 01-13-2023 Mammography [facility] Start: 01-13-2023 Screening for malign ant neoplasm of breast Mammogram Screening [facility] Start: 01-09-2023 COLORECTAL CANCER SCREENING COLORECTAL CANCER SCREENING [facility] Comment on above: Postponed from 01/01 (Declined at this time) Start: 08-02-2022 [facility] Start: 07-31-2022 Patient referral [facility] Work Phone: Start: 04-02-2022 Influenza vaccination [facility] Start: 01-13-2022 Vitamin D, 1,25-dihy droxy measurement [facility] Work Phone: Start: 12-18-2021 DIABETES SCREEN DIABETES SCREEN [facility] Start: 09-02-2021 Screening for malign ant neoplasm of colon Colon cancer screen colonoscopy [place], [place] Start: 2021 RSV patient s and/or patients aged 60+ years (1 - 1-dose 60+ series) RSV patients and/or patients aged 60+ years (1 - 1-dose 60+ series) [facility] Start: 2021 RSV Vaccine (1 - 1-d ose 60+ series) RSV Vaccine (1 - 1-dose 60+ series) [facility] Start: 04-02-2020 Influenza vaccination M [place] Start: 03-11-2020 Screening for malign ant neoplasm of breast Breast cancer screen [place], [place] Start: 04-22-2019 Colonoscopy COLONOSCOPY [facility] Start: 04-22-2019 COLORECTAL CANCER SCREENING COLORECTAL CANCER SCREENING [facility] Start: 04-22-2019 Tuberculosis screening COLOREC BERT CANCER SCREENING,SEE MODIFIER [facility] Start: 03-14-2019 Creatinine measurement Creatinine mo nitoring [place], [place] Start: 03-14-2019 HbA1c (Bld) [Mass fraction] A1C test (Diabetic or Prediabetic) [place] Start: 03-14-2019 Potassium monitoring Potassium monit oring [place], [place] Start: 03-14-2019 TSH Qn TSH testing [place], [place] Start: 03-10-2019 Mammography MAMMOGRAM [facility] Start: 03-14-2017 Yearly Adult Physical Yearly Adult P [facility] Start: 01-02-2016 Influenza vaccination LUNG CANCER [facility] Start: 2011 Influenza vaccination LUNG CANCER [facility] Start: 2011 Pneumococcal Vaccine : 50+ (1 of 1 - PCV) Pneumococcal Vaccine: 50+ (1 of 1 - PCV) [facility] Start: 2011 Pneumococcal Vaccine : 50+ Years (1 of 1 - PCV) Pneumococcal Vaccine: 50+ Years (1 of 1 - PCV) [facility] Start: 2011 Shingles Vaccine (1 of 2) Chowdhury gles Vaccine (1 of 2) [place] Start: 2011 SHINGRIX VACCINE (1 of 2) CHOWDHURY GRIX VACCINE (1 of 2) [facility] Start: 2011 Zoster Vaccines (1 of 2) Zoste r Vaccines (1 of 2) [facility] Start: 2006 COLOGUARD (FIT-DNA) COLOGUARD (FIT-D NA) [facility] Start: [address] COLONOGRAPHY [facility] Start: 2006 FECAL OCCULT BLOOD FECAL OCCULT BLOO D [facility] Start: 2006 Screening for malign ant neoplasm of colon [facility] Start: 2006 SIGMOIDOSCOPY SIGMOIDOSCOPY [facility] Start: 1983 DTaP/Tdap/Td Vaccine s (1 - Tdap) DTaP/Tdap/Td Vaccines (1 - Tdap) [facility] Start: 1982 Screening for malign ant neoplasm of cervix [facility] Start: 01-02-1980 DTaP/Tdap/Td vaccine (1 - Tdap) DTaP/Tdap/Td vaccine (1 - Tdap) [place] Start: 01-02-1980 DTaP/Tdap/Td Vaccine s (1 - Tdap) DTaP/Tdap/Td Vaccines (1 - Tdap) [facility] Start: 01-02-1980 Pneumococcal vaccination Pneum ococcal Vaccine (1 of 2 - PCV) [facility] Start: 01-02-1980 Urine microalbumin profile [facility] Start: 01-02-1980 Urine screening for protein Diabetes: Urine Protein Screening [facility] Start: 1979 ANNUAL PCP TEAM SOCIAL SERVICE TECHNICIAN MERISSA DISEASE VISIT ANNUAL PCP TEAM CHRONIC DISEASE VISIT [facility] Start: 1979 Anxiety Screening Anxiety Screening [facility] Start: 1979 BP CONTROLLED (<130/80) BP CONTROLLE D (<130/80) [facility] Start: 1979 Depression Screening Depression Scre ening [facility] Start: 1979 Diabetes: Urine Albumin-Creatinine Ratio for Kidney Health Diabetes: Urine Albumin-Creatinine Ratio for Kidney Health [facility] Start: 1979 HEPATITIS C SCREENING HEPATITIS C [facility] Start: 1979 Hepatitis C screening Hepatitis C Sc [facility] Start: 1979 HIV SCREENING HIV SCREENING [facility] Start: 1979 HIV screening HIV Screening [facility] Start: 01-02-1976 HIV screening HIV screen [place], [place] Start: 1973 Adult depression screening assessment DEPRESSION SCREENING [facility] Start: 1971 Diabetic foot examination Diabetes: Foot Exam [facility] Start: 1971 Glaucoma screening Diabetes: R etinopathy Screening [facility] Start: 1971 Preventive dental service Diabetes: Dental Exam [facility] Start: 1967 PNEUMOCOCCAL (1 - PCV) PNEUMOCOCCAL (1 - PCV) [facility] Start: 1967 Pneumococcal 0-64 ye ars Vaccine (1 of 1 - PPSV23) Pneumococcal 0-64 years Vaccine (1 of 1 - PPSV23) [place] Start: 1967 Pneumococcal vaccination [facility] Start: 1967 Pneumococcal Vaccine : Pediatrics (0 to 5 Years) and At-Risk Patients (6 to 64 Years) (1 of 2 - PCV) Pneumococcal Vaccine: Pediatrics (0 to 5 Years) and At-Risk Patients (6 to 64 Years) (1 of 2 - PCV) [facility] Start: 1966 COVID-19 VACCINE (#1) COVID-19 VACCI NE (#1) [facility] Start: 1962 MMR Vaccines (1 of 1 - Standard series) MMR Vaccines (1 of 1 - Standard series) [facility] Start: 1961 COVID-19 VACCINE (#1) COVID-19 VACCI NE (#1) [facility] Start: 1961 [facility] C [facility] [place] [place] Start: 1961 HIV screening HIV Screening [facility] Start: 1961 Screening for malign ant neoplasm of colon [facility] Start: 1961 Thyroid stimulating hormone measurement TSH Level [facility] Start: 1961 Urine screening for protein Diabetes: Urine Protein Screening [facility] Start: 1961 Yearly Adult Physical Yearly Adult P hycal [facility] CT Chest [facility] End: 02-12-2023 Diagnostic mammography computer-aided detcj uni [facility] DIAGNOSTIC RT Radiology Routine Abnormal mammogram 1 Occurrences starting 01/13/2022 until 02/12/2023 [facility] Work Phone: Comment on above: 1 Occurrences starti ng 01/13/2022 until 02/12/2023 End: 04-09-2023 Diagnostic mammography computer-aided detcj uni [facility] DIAGNOSTIC RT Radiology Routine Follow-up examination of abnormal mammogram 1 Occurrences starting 03/10/2022 until 04/09/2023 [facility] Work Phone: Comment on above: 1 Occurrences starti ng 03/10/2022 until 04/09/2023 End: 02-15-2025 ECG 12 lead [facility] Service Area Work Phone: Comment on above: Once for 1 Occurrenc es starting 02/15/2025 until 02/15/2025 As needed until disc ontinued starting 02/15/2025 End: 02-15-2025 Extra Tubes [facility] Service Area Work Phone: Comment on above: Once (Lab) for 1 Occ urrences starting 02/15/2025 until 02/15/2025 Uribe Top [facility] Top Lab Rou kevin 02/15/2025 6:52 PM EDT [facility] Work Phone: End: 12-03-2023 [facility] DIAGNOSTIC RIGHT [facility] DIAGNOSTIC RIGHT Radiology Routine Follow-up examination of abnormal mammogram 1 Occurrences starting 11/03/2022 until 12/03/2023 [facility] Work Phone: Comment on above: 1 Occurrences starti ng 11/03/2022 until 12/03/2023 Measurement of respiratory function [facility] End: 03-09-2025 MR Brain WO contrast [facility] Service Area Work Phone: Comment on above: Once for 1 Occurrenc es starting 03/09/2025 until 03/09/2025 Patient referral [facility] Work Phone: Polysomnography [facility] End: 02-15-2025 Pulse oximetry, continuous Pulse oximetry, continuous Respiratory Care STAT Continuous until discontinued starting 02/15/2025 [facility] Work Phone: Comment on above: Continuous until dis continued starting 02/15/2025 End: 02-11-2024 Screening colonoscopy COLONOSCOPY SCREENING Endoscopy Routine Encounter for screening for malignant neoplasm of colon Family history of colonic polyps 1 Occurrences starting 02/10/2023 until 02/11/2024 [facility] Work Phone: Comment on above: 1 Occurrences starti ng 02/10/2023 until 02/11/2024 End: 02-08-2023 Screening mammography bi 2-view breast inc cad MIR[facility] SCREENING Radiology Routine Encounter for screening mammogram for breast cancer 1 Occurrences starting 01/09/2022 until 02/08/2023 [facility] Work Phone: Comment on above: 1 Occurrences starti ng 01/09/2022 until 02/08/2023 End: 11-02-2022 US BREAST LTD RT US BREAST LTD RT Radiology Routine Follow-up examination of abnormal mammogram 1 Occurrences starting 11/02/2022 until 11/02/2022 [facility] Work Phone: Comment on above: 1 Occurrences starti ng 11/02/2022 until 11/02/2022 End: 02-12-2023 Us breast uni real time with image complete US BREAST COMPLETE RT Radiology Routine Abnormal mammogram 1 Occurrences starting 01/13/2022 until 02/12/2023 [facility] Work Phone: Comment on above: 1 Occurrences starti ng 01/13/2022 until 02/12/2023 End: 04-09-2023 Us breast uni real time with image limited US BREAST LTD RT Radiology Routine Follow-up examination of abnormal mammogram 1 Occurrences starting 03/10/2022 until 04/09/2023 [facility] Work Phone: Comment on above: 1 Occurrences starti ng 03/10/2022 until 04/09/2023 Vitamin D, 1,25-dihy droxy measurement [facility] Work Phone: [facility] Payers Date Payer Category Payer Commercial Managed C are - HMO MMO SUPERMED [id number] 2023 Managed Care (Private) [id number] 2023 Self-pay [id number] 2019 Private Health Insurance MMO SUP ERMED PPO [id number] 2019 Unknown 2019 Unknown [id number] 2019 Unknown [id number] 2014 Unknown [employer] M [employer] [address] xxxxxxxxxxxx 2014-Present [phone] [address] [place] [address] xxxxxxxxxxxx [id number] 1961 Unknown [id number] 1961 Unknown [id number] .[id number] 1961 Unknown [id number] .[id number] 1961 Unknown [id number] .1243 1961 Unknown [id number] .1245 1961 Unknown [id number] .159 1961 Unknown [id number] .159 1961 Unknown [id number] .159 1961 Unknown [id number] .159 Unknown [id number] .462 Unknown [id number] .462 Unknown [id number] .462 Unknown [id number] .462 Unknown [id number] Social History Date Type Detail Facility Start: 04-30-2017 End: 06-08-2018 Tobacco smoking status [facility]IS [facility] Start: 05-20-[facility] History of tobacco use [facility] Start: 06-08-2018 End: 03-16-2025 Cigarettes smoked current (pack per day) - Reported [facility] Start: 06-08-2018 End: 02-11-2022 Alcohol intake [facility] Start: 05-20-2018 Tobacco Comment Will let know when ready [facility] Start: 1960 Sex [facility]igned [facility] Start: 04-30-2017 End: 08-21-2019 Tobacco use and exposure Never used [facility] Start: 03-13-2016 Alcohol Comment rarely [facility] Start: 06-20-2020 History SDOH Alcohol Frequency 3 [facility] Start: 06-20-2020 History SDOH Alcohol Std Drinks 1 [facility] Start: 1960 Sex Assigned At Female [facility] Start: 04-19-2021 End: 02-02-2024 Exposure to SARS-CoV-2 (event) Not sure [facility] Start: 01-13-2022 End: 02-23-2023 Tobacco smoking status MOIS Unknown if ever smoked [facility] Start: 1960 Sex Assigned At Male [facility] Start: 02-11-2022 End: 03-16-2025 Tobacco use panel [facility] Start: 02-09-2021 Gender identity Identifies as female gender (finding) [facility] How often to you hav e a drink containing alcohol? 2-4 times a month [facility] How many standard drinks containing alcohol do you have on a typical day? 1 or 2 [facility] How often do you hav e 6 or more drinks on 1 occasion? Never [facility] Start: 07-03-2012 End: 06-27-2022 PHQ2 Score 0 [facility] Start: 11-30-2024 Tobacco smoking status NHIS Ex-smoker [facility] Start: 05-20-1976 History of tobacco use Current smoker [facility] Start: 03-02-2022 Sex Female (finding) [facility] Start: 02-15-2025 Sexual orientation Heterosexual (finding) [facility] Work Phone: Medical Equipment Procedure Code Equipment Code Equipment Origin al Text Equipment Identifier Dates Dextile Left Anatomical Mesh Medium 9cm X 13cm [id number] Start: 06-24-2020 Mesh Parietene D s [id number] - [id number] Start: 06-24-2020 Functional Status Date Assessment Result Facility 02-15-2025 [facility] Ed suicide severity rating scale screener - recent [C-SSRS] [facility] Work Phone: 01-17-2022 Are you deaf, or do you have serious difficulty hearing No 01/17/2022 7:44 PM Marisela Ware RN No [facility] 01-17-2022 Are you blind, or do you have serious difficulty seeing, even when wearing glasses No 01/17/2022 7:44 PM Marisela Ware RN [facility] 01-17-2022 Do you have serious difficulty walking or climbing stairs No 01/17/2022 7:44 PM Marisela Ware, TRUONG No [facility] 01-17-2022 Do you have difficul ty dressing or bathing No 01/17/2022 7:44 PM Marisela Ware, TRUONG [facility] 01-17-2022 Because of a physica l, mental, or emotional condition, do you have difficulty doing errands alone such as visiting a physician's office or shopping No 01/17/2022 7:44 PM Marisela Ware RN No [facility] Mental Status Date Assessment Result Facility 01-17-2022 Because of a physica l, mental, or emotional condition, do you have serious difficulty concentrating, remembering, or making decisions No 01/17/2022 7:44 PM Marisela Ware, TRUONG No [facility] Clinical Notes 12-17-2018 to 03-16-2025 Osei Carbajal, RT(R) - 03/16/2025 7:15 AM EDT Note Date & Type Note Facility 03-16-2025 History of Presen t illness Narrative RADIOLOGY SERVICE PROGRESS NOTE SERVICE DATE: 03/16/2025 SERVICE TIME: 9:37 AM PATIENT IDENTITY VERIFICATION COMPLETED USING TWO (2) STANDARD IDENTIFIERS: Name and Date of confirmed by patient verbally and Name and Date of confirmed by identification band FALL SCREENING: Has the patient had 2 falls in the last year or 1 fall with injury or currently using an Ambulatory Assistive Device (Walker, Cane, Wheelchair, Crutches, etc.)? No PATIENT GENDER DATA: .female : No ALLERGIES: Reviewed and unchanged MEDICATIONS REVIEWED: Not applicable PATIENT RELEVANT IMPLANT DATA REVIEWED: Not Applicable PATIENT PRESENTS WITH AN IMPLANTABLE OR ATTACHED POTATO PEELER: No CREATININE: Creatinine Date Value Ref Range Status 01/17/2022 0.70 0.58 - 0.96 mg/dL Final 01/16/2022 0.70 0.58 - 0.96 mg/dL Final 01/15/2022 0.68 0.58 - 0.96 mg/dL Final Estimated Glomerular Filtration Rate Date Value Ref Range Status 01/17/2022 99 >=60 mL/min/1.73m Final Comment: Estimated Glomerular Filtration Rate (eGFR) is calculated using the 2020 CKD-EPI creatinine equation. This equation utilizes serum creatinine, sex, and age as parameters. The creatinine assay has traceable calibration to isotope dilution-mass spectrometry. Refer to KDIGO guidelines for clinical interpretation. In patients with unstable renal function, e.g. those with acute kidney injury, the eGFR may not accurately reflect actual GFR. eGFR- Date Value Ref Range Status 06/20/2020 >60 Final P.O.C.T. RESULTS: N/A March 16, [address] PERFORMED: No IV SITE: Ambulatory: A peripheral IV was started in the Left Wrist with a Angio cath: 24 gauge. POST EXAM PIV STATUS: Discontinued PROCEDURE TYPE: MT Stress: 13.7mCi [id number] was administered IV for Rest Imaging at 07:30 by [facility]. 35.4 mCi [id number] was administered IV for Stress Imaging at 08:51 by [facility]. PATIENT DISCHARGED TO: Ambulatory patient, left [place] department area. Is this a therapy: No A Diagnostic radioactive procedure has taken place, with no further precautions necessary other than routine body substance precautions. More information regarding radiation safety can be found using this link: [email or web address] SIGNATURE: MARCIN Paul) PATIENT NAME: Juan Olsen DATE: March 16, 2025 TIME: 9:37 AM PAGER/CONTACT #: documented in this encounter [facility] 03-16-2025 Note HNO ID: [id number] Author: OSEI CARBAJAL RT (R) Service: Nuclear Medicine Author Type: Technologist Type: Progress Notes Filed: 03/16/2025 09:38 Note Text: RADIOLOGY SERVICE PROGRESS NOTE SERVICE DATE: 03/16/2025 SERVICE TIME: 9:37 AM PATIENT IDENTITY VERIFICATION COMPLETED USING TWO (2) STANDARD IDENTIFIERS: Name and Date of confirmed by patient verbally and Name and Date of confirmed by identification band FALL SCREENING: Has the patient had 2 falls in the last year or 1 fall with injury or currently using an Ambulatory Assistive Device (Walker, Cane, Wheelchair, Crutches, etc.)? No PATIENT GENDER DATA: .female : No ALLERGIES: Reviewed and unchanged MEDICATIONS REVIEWED: Not applicable PATIENT RELEVANT IMPLANT DATA REVIEWED: Not Applicable PATIENT PRESENTS WITH AN IMPLANTABLE OR ATTACHED POTATO PEELER: No CREATININE: Creatinine Date Value Ref Range Status 01/17/2022 0.70 0.58 - 0.96 mg/dL Final 01/16/2022 0.70 0.58 - 0.96 mg/dL Final 01/15/2022 0.68 0.58 - 0.96 mg/dL Final Estimated Glomerular Filtration Rate Date Value Ref Range Status 01/17/2022 99 >=60 mL/min/1.73m? Final Comment: Estimated Glomerular Filtration Rate (eGFR) is calculated using the 2020 CKD-EPI creatinine equation. This equation utilizes serum creatinine, sex, and age as parameters. The creatinine assay has traceable calibration to isotope dilution-mass spectrometry. Refer to KDIGO guidelines for clinical interpretation. In patients with unstable renal function, e.g. those with acute kidney injury, the eGFR may not accurately reflect actual GFR. eGFR- Date Value Ref Range Status 06/20/2020 >60 Final P.O.C.T. RESULTS: N/A March 16, [address] PERFORMED: No IV SITE: Ambulatory: A peripheral IV was started in the Left Wrist with a Angio cath: 24 gauge. POST EXAM PIV STATUS: Discontinued PROCEDURE TYPE: NM Stress: 13.7mCi [id number] was administered IV for Rest Imaging at 07:30 by DARRION. 35.4 mCi [id number] was administered IV for Stress Imaging at 08:51 by ELIO. PATIENT DISCHARGED TO: Ambulatory patient, left NM department area. Is this a therapy: No A Diagnostic radioactive procedure has taken place, with no further precautions necessary other than routine body substance precautions. More information regarding radiation safety can be found using this link: [email or web address]%20Nuclear%20Medicine%20 [email or web address] SIGNATURE: RT Humberto(R) PATIENT NAME: Juan Olsen DATE: March 16, 2025 TIME: 9:37 AM PAGER/CONTACT #: [facility] 01-09-2025 Evaluation note Diagnosis Onset Date Resolution Constipation acute January 09, 2 025 3:09pm Diverticulitis large intestine acute January 09, 2025 3:09pm Lower abdominal pain acute January 09, 2025 3:09pm Rectal pain acute January 09 3:09pm Diverticulitis large intestine acute February 01, 2025 4:49pm Hyperglycemia due to type 2 diabetes mellitus acute January 4:49pm Lower abdominal pain acute February 01, 2025 4:49pm Hypokalemia acute February 19 4:01pm Hypomagnesemia acute February 19, 2025 4:01pm Hypothyroidism (acquired) acute February 19, 2025 4:01pm Syncopal episodes acute February 192024 4:01pm [facility] Work Phone: 1(607) 361-736905-01-2025 Emergency department Note* Silvina Ponce RN - 11/30/2024 2:09 PM EDT RN went over discharge instructions with the patient, Patient was able to reinstruct RN with discharge care. Patient denies any questions. Patient is A&Ox3 at time of discharge. Patient denied needing use of wheelchair to ED waiting room. RN directed patient towards exit upon being discharged, Patient had steady gait upon leaving unit. [id number] Emergency department Note* Silvina Ponce RN - 11/30/2024 2:09 PM EDT RN went over discharge instructions with the patient, Patient was able to reinstruct RN with discharge care. Patient denies any questions. Patient is A&Ox3 at time of discharge. Patient denied needing use of wheelchair to ED waiting room. RN directed patient towards exit upon being discharged, Patient had steady gait upon leaving unit. * Silvina Ponce RN - 11/30/2024 2:07 PM EDT Pt educated to follow up with PCP in regards to blood pressure. Pt verbalizes understanding. * Silvina Ponce RN - 11/30/2024 2:02 PM EDT DO Hannah made aware of patient blood pressure 173/75. Per DO Hannah patient is okay for discharge. * Yadira Merida DO - 11/30/2024 10:26 AM EDT EMERGENCY DEPARTMENT ENCOUNTER Pt Name: Juan Olsen Birthdate 1960 Date of evaluation: 11/30/2024 ED Provider: Yadira Merida DO CHIEF COMPLAINT Chief Complaint Patient presents with Abdominal Pain Pt presents to ED for lower abdominal pain. Pt reports pain increased 3 days ago. Pt reports nauseaand bloating. Hx diverticulitis. HISTORY OF PRESENT ILLNESS [...] She endorses history of frequent diverticulitis status postcolectomy that feels similar. She was just seen [...] kg (174 lb) Height: 1.549 m (5' 1") Medications morphine injection 4 mg (4 mg [...] diverticulitis, perforation, appendicitis. Patient given medication for painand nausea. Workup revealed CBC without leukocytosis leukopenia or anemia otherwise unremarkable lipase within normal range, CMP grossly markable without significant electrolyte or renal function derangement CT abdomen pelvis without acute findings has diverticulosis and hepatic steatosis no evidence of diverti culitis however patient endorsing feels the exact same as prior history of diverticulitis. Discussed options for treatment of clinical diverticulitis based on patient's history versus supportive careand outpatient follow-up. Patient opted for treatment. Bentyl [...] 01:33:05 PM PATIENT REFERRED TO: Glendy Anderson [address] [facility] [address] DISCHARGE MEDICATIONS: New Prescriptions CIPROFLOXACIN (CIPRO) 500 [...] are any questions or concerns please feel freeto contact the dictating provider for clarification.) Yadira Merida DO (electronically signed) Emergency Medicine Provider Yadira Merida DO 11/30/24 1357 documented in this [facility]05-01-2025 Emergency department Note* Silvina Ponce RN - 11/30/2024 2:07 PM EDT Pt educated to follow up with PCP in regards to blood pressure. Pt verbalizes understanding. [id number] Emergency department Note* Silvina Ponce RN - 11/30/2024 2:02 PM EDT DO Hannah made aware of patient blood pressure 173/75. Per DO Hannah patient is okay for discharge. [id number] [facility] Discharge instructions* Discharge Instructions* Yadira Merida DO - 11/30/2024 1:39 PM EDT Take antibiotics as prescribed. Bentyl and [id number] medication as needed for pain. Stay well-hydrated. Return for new or concerning symptoms. Follow-up with PCP for further issues. * Attachments The following attachments cannot be sent through Care Everywhere. * Abdominal Pain, Adult ED (Dominican) * Diverticulitis Discharge Instructions (Dominican) documented in this [facility]05-01-2025 Physician Emergency department Note* Yadira Merida DO - 11/30/2024 10:26 AM EDT EMERGENCY DEPARTMENT ENCOUNTER Pt Name: Juan Olsen Birthdate 1960 Date of evaluation: 11/30/2024 ED Provider: Yadira Merida DO CHIEF COMPLAINT Chief Complaint Patient presents with Abdominal Pain Pt presents to ED for lower abdominal pain. Pt reports pain increased 3 days ago. Pt reports nauseaand bloating. Hx diverticulitis. HISTORY OF PRESENT ILLNESS [...] She endorses history of frequent diverticulitis status postcolectomy that feels similar. She was just seen [...] kg (174 lb) Height: 1.549 m (5' 1") Medications morphine injection 4 mg (4 mg [...] diverticulitis, perforation, appendicitis. Patient given medication for painand nausea. Workup revealed CBC without leukocytosis leukopenia or anemia otherwise unremarkable lipase within normal range, CMP grossly markable without significant electrolyte or renal function derangement CT abdomen pelvis without acute findings has diverticulosis and hepatic steatosis no evidence of diverti culitis however patient endorsing feels the exact same as prior history of diverticulitis. Discussed options for treatment of clinical diverticulitis based on patient's history versus supportive careand outpatient follow-up. Patient opted for treatment. Bentyl [...] REFERRED TO: Glendy Anderson [address] [facility] [address] DISCHARGE MEDICATIONS: New Prescriptions CIPROFLOXACIN (CIPRO) 500 [...] are any questions or concerns please feel freeto contact the dictating provider for clarification.) Yadira Merida DO (electronically signed) Emergency Medicine Provider Yadira Merida DO 11/30/24 1357 [id number] Evaluation note* Diagnosis Onset Date Resolution Status Admit Date Bilateral hearing loss due t o cerumen impaction acute October 11 3:47pm Bronchitis acute October 11 3:47pm Maxillary sinusitis, acute acute October 11, 2024 3:47pm Constipation acute January 09, 2 025 3:09pm Diverticulitis large intestine acute January 09, 2025 3:09pm Lower abdominal pain acute January 09, 2025 3:09pm Rectal pain acute January 09 3:09pm Diverticulitis large intestine acute February 01, 2025 4:49pm Hyperglycemia due to type 2 diabetes mellitus acute February 01, 2025 4:49pm Lower abdominal pain acute February 01, 2025 4:49pm [facility] Work Phone: 1(390) 469-557906-11-2024 History of Present illness Narrative* Cheli Wright MD - 01/11/2024 10:00 AM EDT Subjective Patient ID: Juan Olsen is a 64 y.o. 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 Check for ADHD.). HPI Patient [...] (98.2 F) (Oral) Ht 1.549 m (5' 1") Wt 78 kg (172 lb) SpO2 98% [...] to continue to see her provider in [place] She will get her evaluation testing done we will call with results she will let me know if she needs anything else Cheli Wright MD [facility] Work Phone: 1(656) 596-139311-09-2023 Miscellaneous Notes* Telephone Encounter - Emma Mc RN - 06/10/2023 4:32 PM EST Patient's Mikhail Olsen is having colonoscopy tomorrow. * Telephone Encounter - Eula Lancaster - 06/10/2023 2:12 PM EST Yes I do think it was open access. * Telephone Encounter - Britt Church PA-C - 06/10/2023 12:21 PM EST Not that I am aware. Was this open access? * Telephone Encounter - Eula Lancaster - 06/10/2023 11:08 AM EST Patient called and was inquiring about if he needs PAT testing ? His colonoscopy is tomorrow. [facility] Instructions* Patient Instructions* Anisha Eula - 02/10/2023 1:15 PM EDT Images from [...] If you do not have a responsible local combination truck driver (family member or friend) withyou to take you home, your exam cannot be done with sedation and will be cancelled. Please bring a list of all of your current medications, including any Jelo-ckz-Kodiwfq medications with you. Medications If you take [...] your exam. 2 07/2019 documented in this [facility]-2023 Procedure [facility]04-05-2023 Miscellaneous Notes* Telephone Encounter - Kee Abbott [...] recommended to demonstrate stability documented in this [facility]23 History of Present illness Narrative* SILVINO Garrison - 11/02/2022 8:00 AM EDT Radiology Service Progress Note PATIENT NAME: Juan lOsen DATE OF SERVICE: November 02, 2022 TIME: [...] 02, 2022 8:17 AM documented in this [facility]-2022 Miscellaneous Notes* Addendum Note - Darline Barnhart [...] months Aissatou Turner LPN documented in this [facility]-01-2022 History of Present illness Narrative* SILVINO Garrison [...] 02, 2022 10:48 AM documented in this [facility]-2022 History of Present illness Narrative* Mathieu Menendez MD - 02/11/2022 2:55 PM EDT PROGRESS NOTES PATIENT NAME: Juan [...] EXAM: BP 140/90 Pulse 70 Ht 5' 1" (1.55m) Wt 170 lb (77.1kg) BMI 32.14 kg/(m^2). GENERAL: Alert, no distress, cooperative ABDOMEN: Mild diffuse tenderness to palpation. Most of her pain seems to be in the left upper quadrant. DATA: Diagnostic tests reviewed for today's visit: No new labs Mathieu Menendez MD documented in this encounter[facility]-03-2022 Evaluation note* Diagnosis Onset Date Resolution Status Bronchitis acute Left otitis media acute Maxillary sinusitis, acute a cute Smoker within last 12 months acute Obstructive Sleep Apnea-Hypopnea Syndrome noneactive Bronchitis acute Maxillary sinusitis, acute a cute Menopausal flushing acute Hypothyroidism (acquired) [place] Right acute otitis media acu te Vertigo acute Hypertension [facility] Work Phone: 1(435) 907-820106-29-2022 History of Present illness Narrative* Mathieu Menendez MD - 01/28/2022 12:14 PM EDT [...] EXAM: BP 158/74 Pulse 85 Ht 5' 1" (1.55m) Wt 172 lb 4.8 oz (78.2kg) SpO2 100% BMI 32.57 kg/(m^2). GENERAL: Alert, no distress, cooperative ABDOMEN: Minimal diffuse tenderness to palpation. No rebound or guarding. DATA: Diagnostic tests reviewed for today's visit: Most recent labs and imaging results. Mathieu Menendez MD documented in this encounter[facility]-15-2022 Miscellaneous Notes* Telephone Encounter - Aissatou Turner [...] recommended. Aissatou Turner LPN documented in this encounter[facility]-14-2022 Miscellaneous Notes* Letter - Mammography Coordinator - 01/13/2022 12:52 PM EDT January 13, 2022 PID: [id number] Juan Olsen [address] [place] [address] Dear Ms. Olsen, Your recent breast imaging [...] so).Additional Imaging cannot be self scheduled in [place] [employer]. If you DO NOT have a healthcare provider (ie you did not have an order/prescription for your screening mammogram): Please call to schedule an appointment for your additional imaging (if you have not already done so). Additonal Imaging cannot be self scheduled in [place] [employer]. This exam cannot be self scheduled in [place] [employer]. You must have an order/prescription f rom your physician when calling to schedule your appointment. If your order/prescription is not electronic, you must bring the hard copy with you on the day of your exam Your imaging studies and reports are kept on [facility] at [facility] as part of your permanent medical record, and are available for your continuing care. Thank you for allowing us to help in meeting your health care needs. Sincerely, Dr. Dominguez Interpreting Radiologist [facility] (Additional imaging) documented in this encounterSelect [facility]06-10-2022 NoteHNO ID: [id number] Author: Darline Barnhart MD Service: ? Author Type: Physician Type: Progress Notes Filed: 01/09/2022 10:43 AM Note Text: Juna is a 62 year old who presents for an annual gynecologic exam without complaints. Postmenopausal: Yes HRT use: Yes Last Pap: normal HPV: negative History of abnormal pap: No Last mammogram: 2018 normal History of abnormal mammogram: No Sexually active: Yes OB History T3 L3 SAB0 IAB0 Ectopic0 Multiple0 Live Births0 [employer] History LMP: Hysterectomy Age at Menarche: Age at First : Age at Menopause: [employer] History Comments: Sexual Activity: Yes; Male Contraception: [...] medication updated:Yes EXAM: BP 142/88 Ht 5' 1" (1.55m) Wt 175 lb (79.4kg) BMI 33.08 [...] external genitalia normal, normal Bartholin's glands, urethra, [place]'s glands, no vulvar lesions,, physiologic discharge present, [...] one year or sooner as needed Darline Barnhart, [facility]06-10-2022 Instructions* Patient Instructions* Darline Barnhart MD - 01/09/2022 10:32 AM EDT ACOG Screening Guidelines The following health screening schedule is recommended by the [employer] (ACOG). Some [...] should be done every 3 years from [id number]. From age 30-65, pap smears can be [...] may also increase risk. 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: Sexual Activity: Yes; Male Contraception: [...] medication updated:Yes EXAM: BP 142/88 Ht 5' 1" (1.55m) Wt 175 lb (79.4kg) BMI 33.08 [...] external genitalia normal, normal Bartholin's glands, urethra, [place]'s glands, no vulvar lesions,, physiologic discharge present, [...] needed Darline Barnhart MD documented in this encounterSelect [facility]11-26-2021 History of Present illness Narrative* Carlos Catherine RT(R) - 06/27/2021 12:30 PM EST Radiology [...] 27, 2021 12:32 PM documented in this encounterSelect [facility]11-09-2021 History of Present illness Narrative* Lois Galvan [...] 10, 2021 7:41 AM documented in this encounter[facility]-18-2019 History of Past illness Narrative* Problem Noted [...] of this encounter (statuses as of 01/09/2022) [facility] History of Past illness Narrative* Problem Noted [...] of this encounter (statuses as of 01/13/2022) [facility] History of Past illness Narrative* Problem Noted [...] of this encounter (statuses as of 01/14/2022) [facility] History of Past illness Narrative* Problem Noted [...] of this encounter (statuses as of 01/14/2022) [facility] History of Past illness Narrative* Problem Noted [...] of this encounter (statuses as of 01/15/2022) [facility] History of Past illness Narrative* Problem Noted [...] of this encounter (statuses as of 01/28/2022) [facility] History of Past illness Narrative* Problem Noted [...] of this encounter (statuses as of 02/11/2022) [facility] History of Past illness Narrative* Problem Noted [...] of this encounter (statuses as of 02/12/2022) [facility] History of Past illness Narrative* Problem Noted [...] of this encounter (statuses as of 03/03/2022) [facility] History of Past illness Narrative* Problem Noted [...] of this encounter (statuses as of 03/10/2022) [facility] History of Past illness Narrative* Problem Noted [...] of this encounter (statuses as of 11/03/2022) [facility] History of Past illness Narrative* Problem Noted [...] of this encounter (statuses as of 11/04/2022) [facility] History of Past illness Narrative* Problem Noted [...] of this encounter (statuses as of 11/04/2022) [facility] History of Past illness Narrative* Problem Noted [...] of this encounter (statuses as of 02/11/2023) [facility] History of Past illness Narrative* Problem Noted [...] of this encounter (statuses as of 03/24/2023) [facility] History of Past illness Narrative* Problem Noted [...] of this encounter (statuses as of 06/06/2023) [facility] History of Past illness Narrative* Problem Noted [...] of this encounter (statuses as of 06/17/2023) [facility]* Diagnosis Encounter for gynecological examination (general) (routine) without abnormal findings Encounter for screening mammogram for breast cancer [facility]* Diagnosis Abnormal mammogram- Primary Abnormal mammogram, unspecified documented in this encounter [facility] note* Diagnosis Encounter for screening mammogram for breast cancer documented in this encounter [facility] note* Diagnosis Onset Date Resolution Status Bilateral hearing loss due to cerumen impaction acute Dermatitis fungal acute Hypothyroidism (acquired) [place] Hypertension chronic Abdominal pain acute Bowel obstruction acute Diverticulitis acute [facility] Work Phone: Evaluation note* Diagnosis Generalized abdominal pain- Primary Abdominal pain, generalized documented in this encounter [facility] note* Diagnosis Infection in abdomen (HCC) Unspecified peritonitis documented in this encounter [facility] note* Diagnosis Abnormal mammogram Abnormal mammogram, unspecified documented in this encounter [facility] note* Diagnosis Abnormal mammogram- Primary Abnormal mammogram, unspecified Follow-up examination of abnormal mammogram Abnormal mammogram, unspecified documented in this encounter [facility] note* Diagnosis Onset Date Resolution Status Cough acute Left otitis media acute Maxillary sinusitis acute Hypersomnia acute Hypothyroidism (acquired) [place] Hypertension chronic [facility] Work Phone: Evaluation note* Diagnosis Follow-up examination of abnormal mammogram Abnormal mammogram, unspecified documented in this encounter [facility] note* Diagnosis Follow-up examination of abnormal mammogram- Primary Abnormal mammogram, unspecified documented in this encounter [facility] note* Diagnosis Onset Date Resolution Status Hypersomnia acute Hypothyroidism (acquired) [place] Hypertension chronic Maxillary sinusitis, acute a cute Right acute otitis media acu te Bronchitis acute Left otitis media acute Maxillary sinusitis, acute a cute Smoker within last 12 months acute Obstructive Sleep Apnea-Hypopnea Syndrome noneactive [facility] Work Phone: Evaluation note* Diagnosis Encounter for screening for malignant neoplasm of colon- Primary Special screening for malignant neoplasms, colon Family history of colonic polyps documented in this encounter [facility] note* Diagnosis Onset Date Resolution Status Bronchitis acute Maxillary sinusitis, acute a cute Menopausal flushing acute Hypothyroidism (acquired) [place] Right acute otitis media acu te Vertigo acute Hypertension chronic Diverticulitis large intestine acute Lower abdominal pain acute Sleep apnea chronic Smoking greater than 40 pack years chronic Menopausal flushing acute Hypertension chronic [facility] Work Phone: Evaluation note* Diagnosis Screening mammogram for breast cancer- Primary Abnormal mammogram Abnormal mammogram, unspecified Obstructive sleep apnea syndrome Obstructive sleep apnea (adult) (pediatric) Routine general medical examination at a health care facility Type 2 diabetes mellitus without complication, without long-term current use of insulin (Multi) documented in this encounter [facility] Work Phone: Evaluation note* Diagnosis Chest pain, [...] region and thigh [facility] this [facility] Diagnosis Screening mammogram for breast cancer Abnormal mammogram Abnormal mammogram, unspecified documented in this encounter [facility] Work Phone: Evaluation note* Diagnosis Screening mammogram for breast cancer Abnormal mammogram Abnormal mammogram, unspecified documented in this encounter [facility] Work Phone: Evaluation note* Diagnosis Lower abdominal pain- Primary Abdominal pain, other specified site [facility] Diagnosis Syncope, unspecified syncope type- Primary documented in this encounter [facility] Work Phone: Evaluation note* Diagnosis Syncope and collapse documented in this encounter [facility] Work Phone: Hospital Discharge instructions* Attachments The following attachments cannot be sent through Care Everywhere. * Syncope (Fainting) Discharge Instructions (Dominican) [facility] Work Phone: Reason for referral (narrative)* Diagnostic Procedure Only (Routine) - Authorized Specialty Diagnoses / Procedures Referred By Contac t Referred To Contact [facility] Diagnoses Encounter for screening mammogram for breast cancer Procedures MIRZA SCREENING SCREENING MAMMOGRAPHY BI 2-VIEW BREAST INC CAD Darline Barnhart MD [address] [place] [address] [facility] [address] [place] [address] Referral ID Status Reason Start Date Expiration Date Visits Requested Visits Authorized [id number] Authorized Auto-Generat ed Referral 01/09/2022 02/08/2023 1 1 [facility] for referral (narrative)* Diagnostic Procedure Only (Routine) - Pending Review Specialty Diagnoses / Procedures Referred By Contac t Referred To Contact [facility] IMAGING Diagnoses Abnormal mammogram Procedures MIRZA DIAGNOSTIC RT DIAGNOSTIC MAMMOGRAPHY COMPUTER-AIDED DETCJ UNI Darline Barnhart MD [address] [place] [address] Br Imaging [address] [place] [address] Referral ID Status Reason Start Date Expiration Date Visits Requested Visits Authorized [id number] Pending Review Auto-Generat ed Referral 01/13/2022 02/12/2023 1 1 * Diagnostic Procedure Only (Routine) - Pending Review Specialty Diagnoses / Procedures Referred By Lizaac t Referred To Contact BR IMAGING Diagnoses Abnormal mammogram Procedures US BREAST COMPLETE RT US BREAST UNI REAL TIME WITH IMAGE COMPLETE Darline Barnhart MD [address] [place] [address] [facility] [address] [place] [address] Referral ID Status Reason Start Date Expiration Date Visits Requested Visits Authorized [id number] Pending Review Auto-Generat ed Referral 01/13/2022 02/12/2023 1 1 [facility] for referral (narrative)* Diagnostic Procedure Only (Routine) - Closed Specialty Diagnoses / Procedures Referred By Contac t Referred To Contact BR IMAGING Diagnoses Encounter for screening mammogram for breast cancer Procedures MIRZA SCREENING SCREENING MAMMOGRAPHY BI 2-VIEW BREAST INC CAD Darline Barnhart MD [address] [place] [address] [facility] [address] [place] [address] Referral ID Status Reason Start Date Expiration Date V isits Requested Visits Authorized [id number] Closed Auto-Generate d Referral 01/09/2022 02/08/2023 1 1 [facility] for referral (narrative)* Diagnostic Procedure Only (Routine) - Pending Review Specialty Diagnoses / Procedures Referred By Contac t Referred To Contact BR IMAGING Diagnoses Follow-up examination of abnormal mammogram Procedures US BREAST LTD RT US BREAST UNI REAL TIME WITH IMAGE LIMITED Darline Barnhart MD [address] [place] [address] [facility] [address] [place] [address] Referral ID Status Reason Start Date Expiration Date Visits Requested Visits Authorized [id number] Pending Review Auto-Generat ed Referral 03/10/2022 04/09/2023 1 1 * Diagnostic Procedure Only (Routine) - Pending Review Specialty Diagnoses / Procedures Referred By Steve barillas Referred To Contact BR IMAGING Diagnoses Follow-up examination of abnormal mammogram Procedures MIRZA DIAGNOSTIC RT DIAGNOSTIC MAMMOGRAPHY COMPUTER-AIDED DETCJ UNI Darline Barnhart MD [address] [place] [address] [facility] [address] [place] [address] Referral ID Status Reason Start Date Expiration Date Visits Requested Visits Authorized [id number] Pending Review Auto-Generat ed Referral 03/10/2022 04/09/2023 1 1 [facility] for referral (narrative)* Diagnostic Procedure Only (Routine) - Closed Specialty Diagnoses / Procedures Referred By Contac t Referred To Contact BR IMAGING Diagnoses Follow-up examination of abnormal mammogram Procedures US BREAST LTD RT US BREAST UNI REAL TIME WITH IMAGE LIMITED Darline Barnhart MD [address] [place] [address] [facility] [address] [place] [address] Referral ID Status Reason Start Date Expiration Date V isits Requested Visits Authorized [id number] Closed Auto-Generate d Referral 03/10/2022 04/09/2023 1 1 [facility] for referral (narrative)* Diagnostic Procedure Only (Routine) - Pending Review Specialty Diagnoses / Procedures Referred By Contac t Referred To Contact BR IMAGING Diagnoses Follow-up examination of abnormal mammogram Procedures MIRZA DIAGNOSTIC RIGHT DIAGNOSTIC MAMMOGRAPHY COMPUTER-AIDED DETCJ UNI Darline Barnhart MD [address] [place] [address] [facility] [address] [place] [address] Referral ID Status Reason Start Date Expiration Date Visits Requested Visits Authorized [id number] Pending Review Auto-Generat ed Referral 11/03/2022 12/03/2023 1 1 [facility] for referral (narrative)* Outpatient Procedure (Routine) - Authorized Specialty Diagnoses / Procedures [facility] Diagnoses Encounter for screening for malignant neoplasm of colon Family history of colonic polyps Procedures COLONOSCOPY SCREENING COLONOSCOPY FLX DX W/COLLJ SPEC WHEN PFRMD Mathieu Menendez MD [address] [address] [facility] [address] [place] [address] Referral ID Status Reason Start Date Expiration Date Visits Requested Visits Authorized [id number] Authorized Auto-Generat ed Referral 02/10/2023 02/11/2024 1 1 [facility] for referral (narrative)* Consultation (Routine) - Authorized Specialty Diagnoses / Procedures Referred By Steve t Referred To Contact Sleep Medicine Diagnoses Obstructive sleep apnea syndrome Cheli Wright MD [address] [facility], [place] [address] Referral ID Status Reason Start Date Expiration Date Visits Requested Visits Authorized [id number] Authorized Specialty Services Required 01/11/2024 01/10/2025 1 1 * Imaging (Routine) - Authorized Specialty Diagnoses / Procedures Referred By Steve barillas Referred To Contact Radiology Diagnoses Screening mammogram for breast cancer Abnormal mammogram Procedures BI US breast complete right Cheli Wright MD [address] [facility], [place] [address] Referral ID Status Reason Start Date Expiration Date Visits Requested Visits Authorized [id number] Authorized Perform Procedure 01/11/2024 01/10/2025 1 1 * Imaging (Routine) - Authorized Specialty Diagnoses / Procedures Referred By Steve barillas Referred To Contact Radiology Diagnoses Screening mammogram for breast cancer Abnormal mammogram Procedures BI mammo bilateral diagnostic Cheli Wright MD [address] [facility], [place] [address] Referral ID Status Reason Start Date Expiration Date Visits Requested Visits Authorized [id number] Authorized Perform Procedure 01/11/2024 01/10/2025 1 1 [facility] Work Phone: Reason for referral (narrative)No reason for referral information availableWPremier Health Work Phone: Reason for visit Narrative* Diagnostic Procedure Only (Routine) - Closed Specialty Diagnoses / Procedures Referred By Steve barillas Referred To Contact BR IMAGING Diagnoses Encounter for screening mammogram for breast cancer Procedures MIRZA SCREENING SCREENING MAMMOGRAPHY BI 2-VIEW BREAST INC CAD Darline Barnhart MD [address] [place] [address] Br Imaging [address] [place] [id number] Referral ID Status Reason Start Date Expiration Date V isits Requested Visits Authorized [id number] Closed Auto-Generate d Referral 01/09/2022 02/08/2023 1 1 [facility] for visit Narrative* Diagnostic Procedure Only (Routine) - Closed Specialty Diagnoses / Procedures Referred By Contac t Referred To Contact [facility] IMAGING Diagnoses Abnormal mammogram Procedures MIRZA DIAGNOSTIC RT DIAGNOSTIC MAMMOGRAPHY COMPUTER-AIDED DETCJ UNI Darline Barnhart MD [address] [place] [address] [facility] [address] [place], [place] [id number] Referral ID Status Reason Start Date Expiration Date V isits Requested Visits Authorized [id number] Closed Auto-Generate d Referral 01/13/2022 02/12/2023 1 1 [facility] for visit Narrative* Diagnostic Procedure Only (Routine) - Closed Specialty Diagnoses / Procedures Referred By Contac t Referred To Contact [facility] IMAG[facility] Diagnoses Follow-up examination of abnormal mammogram Procedures US BREAST LTD RT US BREAST UNI REAL TIME WITH IMAGE LIMITED Darline Barnhart MD [address] [place] [address] [facility] [address] [place] [address] Referral ID Status Reason Start Date Expiration Date V isits Requested Visits Authorized [id number] Closed Auto-Generate d Referral 03/10/2022 04/09/2023 1 1 [facility] for visit Narrative* Imaging (Routine) - Authorized Specialty Diagnoses / Procedures Referred By Contac t Referred To Contact Radiology Diagnoses Syncope and collapse Procedures MR brain wo IV contrast Gina Ghosh MD [address] [place] [address] Phone: tel: fax: Referral ID Status Reason Start Date Expiration Date Visits Requested Visits Authorized [id number] Authorized Perform Procedure 02/23/2025 02/23/2026 1 1 [facility] Work Phone: Reason for visit Narrative* Consult, Test, Treat (Routine) - Closed Specialty Diagnoses / Procedures Referred By Contact Referred To Contact Cardiology / CARD LAB [facility] Diagnoses Syncope and collapse NM EXRECISE STRESS W/WALL MOTION AND EF . DX R55 ORDER FAXED Procedures MYOCARDIAL SPECT MULTIPLE STUDIES NUCLEAR STRESS TEST Rachelle Cleveland MD [address] [address] Phone: tel: fax: Cardiology Lab [address] [place] [address] Phone: tel: Referral ID Status Reason Start Date Expiration Date V isits Requested Visits Authorized [id number] Closed Clearance Not Met - Admin/Chairm an/Director Advise to Postpone/Res chedule or Not Proceed Patient Cleared - Admin/Chairm an/Director advise to proceed or did not respond 03/15/2025 08/01/2025 2 2 [facility] Summary Purpose Family History No Family History Records Found Relationship Condition Age at Onset Recorded Date/T tara father Diabetes mellitus Unknown mother Diabetes mellitus Unknown sister Diabetes mellitus Unknown brother Diabetes mellitus Unknown Advance Directives No Advanced Directives Records FoundDocuments on File Type Date Recorded 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 Advance Directives and Living Will Power of Bin Piler Documents on File Type Date Recorded 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 Advance Directive(s) 12/17/2018 8:25 PM Documents on File Type Date Recorded 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 Advance Directive(s) 06/24/2020 9:23 AM Advance Directive(s) 06/12/2020 4:24 PM Advance Directive(s) 12/17/2018 8:25 PM Documents on File Type Date Recorded 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 Advance Directive(s) 06/24/2020 9:23 AM Advance Directive(s) 06/12/2020 4:24 PM Advance Directive(s) 12/17/2018 8:25 PM Documents on File Type Date Recorded 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 Advance Directive(s) 01/15/2022 8:16 PM Advance Directive(s) 06/24/2020 9:23 AM Advance Directive(s) 06/12/2020 4:24 PM Advance Directive(s) 12/17/2018 8:25 PM Documents on File Type Date Recorded 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 Advance Directive(s) 01/15/2022 8:16 PM [...] Chief Complaint Admit Date Sinus/congestion & ST March 12th, 2025 3 :47pm Diverticulitis January 09, 2025 3:09 [...] abdominal pain February 01, 2025 4:49 pm Chief Complaint Admit Date Diverticulitis January 09, 2025 3:09 pm Abdominal pain February 01, 2025 4:49p m Reason for Visit Admit Date Constipation January 09, 2025 3:09 pm Diverticulitis large intestine December 3:09pm Lower abdominal pain January 09, 2025 3:0 9pm Rectal pain January 09, 2025 3:09 pm Diverticulitis large intestine February 01, 2025 4:49pm Hyperglycemia due to type 2 diabetes nikki litus February 01, 2025 4:49pm Lower abdominal pain February 01, 2025 4:49 pm Hypokalemia February 19, 2025 4:01 pm Hypomagnesemia February 19, 2025 4:01 pm Hypothyroidism (acquired) February 19 4:01pm Syncopal episodes February 19, 2025 4:01 pm Reason for Referral Specialty Diagnoses / Procedures Referred By Steve barillas Referred To Contact CT IMAGING Diagnoses Infection in abdomen (HCC) Procedures CT ABD/PEL W IVCON CT ABD & PELVIS W/CONTRAST Mathieu Menendez MD [address] [facility] [address] [place] [address] Referral ID Status Reason Start Date Expiration Date V isits Requested Visits Authorized [id number] Closed Auto-Generate d Referral 02/11/2022 03/28/2022 1 1 Specialty Diagnoses / Procedures Referred By Steve barillas Referred To Contact MR IMAGING Diagnoses Pain in hip Procedures MRI HIP WO IVCON LT MRI, [place] [address] [place] [address] [place] [address] Referral ID Status Reason Start Date Expiration Date V isits Requested Visits Authorized [id number] Closed Auto-Generate d Referral 06/16/2021 07/31/2021 1 1 Specialty Diagnoses / Procedures Referred By Contac t Referred To Contact Radiology Diagnoses Screening mammogram for breast cancer Abnormal mammogram Procedures BI US breast limited right BI US breast complete right Cheli Wright MD [address] [facility] [address] [place] [address] Referral ID Status Reason Start Date Expiration Date Visits Requested Visits Authorized [id number] Pending Review Perform Procedure 01/11/2024 01/10/2025 1 1 Additional Source Comments INFORMATION SOURCE (unrecogn ized section and content) DATE CREATED AUTHOR 01/21/2018 [facility] DATE CREATED AUTHOR AUTHOR'S ORGANIZ ATION 05/20/2018 [facility] DATE CREATED AUTHOR AUTHOR'S ORGANIZ ATION 01/16/2020 [facility] DATE CREATED AUTHOR AUTHOR'S ORGANIZ ATION 11/07/2022 [facility] DATE CREATED AUTHOR AUTHOR'S ORGANIZ ATION 03/25/2023 [facility] DATE CREATED AUTHOR AUTHOR'S ORGANIZ ATION 01/13/2024 [facility] DATE CREATED AUTHOR AUTHOR'S ORGANIZ ATION 02/22/2024 [facility] DATE CREATED AUTHOR AUTHOR'S ORGANIZ ATION 12/05/2024 [facility] DATE CREATED AUTHOR AUTHOR'S ORGANIZ ATION 02/21/2025 [facility] DATE CREATED AUTHOR AUTHOR'S ORGANIZ ATION 02/21/2025 [facility] DATE CREATED AUTHOR AUTHOR'S ORGANIZ ATION 02/24/2025 [facility] DATE CREATED AUTHOR AUTHOR'S ORGANIZ ATION 03/12/2025 [facility] DATE CREATED AUTHOR AUTHOR'S ORGANIZ ATION 03/17/2025 [facility] DATE CREATED AUTHOR AUTHOR'S ORGANMOISES ATION 03/23/2025 [facility] DATE CREATED AUTHOR AUTHOR'S ORGANIZ ATION 04/07/2025 [facility] Source Comments (unrecognize d section and content) In the event this informatio n is protected by the Federal Confidentiality of Alcohol and Drug Abuse Patient Records regulations: The Federal rules restrict any use of the information to criminally investigate or prosecute any alcohol or drug abuse patient.[facility] the event this information is protected by the Federal Confidentiality of Alcohol and Drug Abuse Patient Records regulations: The Federal rules restrict any use of the information to criminally investigate or prosecute any alcohol or drug abuse patient.[facility] the event this information is protected by the Federal Confidentiality of Alcohol and Drug Abuse Patient Records regulations: The Federal rules restrict any use of the information to criminally investigate or prosecute any alcohol or drug abuse patient.[facility] the event this information is protected by the Federal Confidentiality of Alcohol and Drug Abuse Patient Records regulations: The Federal rules restrict any use of the information to criminally investigate or prosecute any alcohol or drug abuse patient.[facility] the event this information is protected by the Federal Confidentiality of Alcohol and Drug Abuse Patient Records regulations: The Federal rules restrict any use of the information to criminally investigate or prosecute any alcohol or drug abuse patient.[facility] the event this information is protected by the Federal Confidentiality of Alcohol and Drug Abuse Patient Records regulations: The Federal rules restrict any use of the information to criminally investigate or prosecute any alcohol or drug abuse patient.[facility] the event this information is protected by the Federal Confidentiality of Alcohol and Drug Abuse Patient Records regulations: The Federal rules restrict any use of the information to criminally investigate or prosecute any alcohol or drug abuse patient.[facility] the event this information is protected by the Federal Confidentiality of Alcohol and Drug Abuse Patient Records regulations: The Federal rules restrict any use of the information to criminally investigate or prosecute any alcohol or drug abuse patient.[facility] the event this information is protected by the Federal Confidentiality of Alcohol and Drug Abuse Patient Records regulations: The Federal rules restrict any use of the information to criminally investigate or prosecute any alcohol or drug abuse patient.[facility] the event this information is protected by the Federal Confidentiality of Alcohol and Drug Abuse Patient Records regulations: The Federal rules restrict any use of the information to criminally investigate or prosecute any alcohol or drug abuse patient.[facility] the event this information is protected by the Federal Confidentiality of Alcohol and Drug Abuse Patient Records regulations: The Federal rules restrict any use of the information to criminally investigate or prosecute any alcohol or drug abuse patient.[facility] the event this information is protected by the Federal Confidentiality of Alcohol and Drug Abuse Patient Records regulations: The Federal rules restrict any use of the information to criminally investigate or prosecute any alcohol or drug abuse patient.[facility] the event this information is protected by the Federal Confidentiality of Alcohol and Drug Abuse Patient Records regulations: The Federal rules restrict any use of the information to criminally investigate or prosecute any alcohol or drug abuse patient.[facility] the event this information is protected by the Federal Confidentiality of Alcohol and Drug Abuse Patient Records regulations: The Federal rules restrict any use of the information to criminally investigate or prosecute any alcohol or drug abuse patient.[facility] the event this information is protected by the Federal Confidentiality of Alcohol and Drug Abuse Patient Records regulations: The Federal rules restrict any use of the information to criminally investigate or prosecute any alcohol or drug abuse patient.[facility] the event this information is protected by the Federal Confidentiality of Alcohol and Drug Abuse Patient Records regulations: The Federal rules restrict any use of the information to criminally investigate or prosecute any alcohol or drug abuse patient.[facility] the event this information is protected by the Federal Confidentiality of Alcohol and Drug Abuse Patient Records regulations: The Federal rules restrict any use of the information to criminally investigate or prosecute any alcohol or drug abuse patient.[facility] the event this information is protected by the Federal Confidentiality of Alcohol and Drug Abuse Patient Records regulations: The Federal rules restrict any use of the information to criminally investigate or prosecute any alcohol or drug abuse patient.[facility] the event this information is protected by the Federal Confidentiality of Alcohol and Drug Abuse Patient Records regulations: The Federal rules restrict any use of the information to criminally investigate or prosecute any alcohol or drug abuse patient.[facility] the event this information is protected by the Federal Confidentiality of Alcohol and Drug Abuse Patient Records regulations: The Federal rules restrict any use of the information to criminally investigate or prosecute any alcohol or drug abuse patient.[facility] the event this information is protected by the Federal Confidentiality of Alcohol and Drug Abuse Patient Records regulations: The Federal rules restrict any use of the information to criminally investigate or prosecute any alcohol or drug abuse patient.[facility] the event this information is protected by the Federal Confidentiality of Alcohol and Drug Abuse Patient Records regulations: The Federal rules restrict any use of the information to criminally investigate or prosecute any alcohol or drug abuse patient.[facility] the event this information is protected by the Federal Confidentiality of Alcohol and Drug Abuse Patient Records regulations: The Federal rules restrict any use of the information to criminally investigate or prosecute any alcohol or drug abuse patient.[facility] the event this information is protected by the Federal Confidentiality of Alcohol and Drug Abuse Patient Records regulations: The Federal rules restrict any use of the information to criminally investigate or prosecute any alcohol or drug abuse patient.[facility] Reason for Visit (unrecogniz ed section and [...] W IVCON CT ABD & PELVIS W/CONTRAST Mathieu Menendez MD [address] [address] [address] Imaging Referral ID Status Reason Start Date Expiration Date V isits Requested Visits Authorized [id number] Closed Auto-Generate d Referral 02/11/2022 03/28/2022 1 1 Reason Comments Results Reason Comments Results Reason Comments Radio Gen RMP Reason Comments 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 Establish care. Check for ADHD. Reason Comments Radiology MRI Specialty Diagnoses / Procedures Referred By Contac t Referred To Contact MR IMAGING Diagnoses Pain in hip Procedures MRI HIP WO IVCON LT MRI, [place] [address] [place] [address] [place] [address] Referral ID Status Reason Start Date Expiration Date V isits Requested Visits Authorized [id number] Closed Auto-Generate d Referral 06/16/2021 07/31/2021 1 1 Specialty Diagnoses / Procedures Referred By Contac t Referred To Contact Radiology Diagnoses Screening mammogram for breast cancer Abnormal mammogram Procedures BI US breast limited right BI US breast complete right Cheli Wright MD [address] [facility] [address] [place] [address] Referral ID Status Reason Start Date Expiration Date Visits Requested Visits Authorized [id number] Pending Review Perform Procedure 01/11/2024 01/10/2025 1 1 Specialty Diagnoses / Procedures Referred By Contac t Referred To Contact Radiology Diagnoses Screening mammogram for breast cancer Abnormal mammogram Procedures BI mammo bilateral diagnostic tomosynthesis BI mammo bilateral diagnostic Cheli Wright MD [address] [facility] [address] [place] [address] Referral ID Status Reason Start Date Expiration Date Visits Requested Visits Authorized [id number] Pending Review Perform Procedure 01/11/2024 01/10/2025 1 [...] and sounded like she was in a "tin can". Per bystanders, pt went unresponsive. Pt was alert and oriented and c/o nausea on ems arrival. Denies any pain Telephone Encounter - Mary Bonner) - 05/14/2020 4:26 PM EDT Miscellaneous Notes (unrecog nized section and content) Called to pharm documented in this encounter Care Teams (unrecognized sec tion and content) Technical Services Coordinator Relationship Specialty Start Date End Date Glendy Anderson, DIGITAL PRODUCTION OPERATOR.MINE INSPECTOR FEDERAL [address] [facility] [address] [place] [address] PCP - General Family Practice 12/17/18 Technical Services Coordinator Relationship Specialty Start Date End Date Glendy Anderson, DIGITAL PRODUCTION OPERATOR.MINE INSPECTOR FEDERAL [address] [place] [address] PCP - General Family Practice 12/17/18 Technical Services Coordinator Relationship Specialty Start Date End Date Glendy Anderson, DIGITAL PRODUCTION OPERATOR.MINE INSPECTOR FEDERAL [address] [place] [address] PCP - General Family Practice 12/17/18 Technical Services Coordinator Relationship Specialty Start Date End Date Glendy Anderson, DIGITAL PRODUCTION OPERATOR.MINE INSPECTOR [employer]AL [address] [place] [address] PCP - General Family Practice 12/17/18 Technical Services Coordinator Relationship Specialty Start Date End Date Glendy Anderson, DIGITAL PRODUCTION OPERATOR.MINE INSPECTOR [employer] [address] [place] [address] PCP - General Family Practice 12/17/18 Technical Services Coordinator Relationship Specialty Start Date End Date Glendy Anderson, DIGITAL PRODUCTION OPERATOR.MINE INSPECTOR [employer] [address] [place] [address] PCP - General Family Practice 12/17/18 Technical Services Coordinator Relationship Specialty Start Date End Date Glendy Anderson, DIGITAL PRODUCTION OPERATOR.MINE INSPECTOR [employer]AL [address] [facility], [place] [address] PCP - General Family Practice 12/17/18 Technical Services Coordinator Relationship Specialty Start Date End Date Glendy Anderson, DIGITAL PRODUCTION OPERATOR.MINE INSPECTOR [employer] [address] [facility], [place] [address] PCP - General Family Practice 12/17/18 Technical Services Coordinator Relationship Specialty Start Date End Date Glendy Anderson, DIGITAL PRODUCTION OPERATOR.MINE INSPECTOR [employer] [address] [facility] [place] [address] PCP - General Family Practice 12/17/18 Technical Services Coordinator Relationship Specialty Start Date End Date Glendy Anderson APRN.MINE INSPECTOR [employer] [address] [place] [address] PCP - General Family Medicine 12/17/18 Technical Services Coordinator Relationship Specialty Start Date End Date Glendy Anderson APRN.MINE INSPECTOR [employer] [address] [place] [address] PCP - General Family Medicine 12/17/18 Technical Services Coordinator Relationship Specialty Start Date End Date Glendy Anderson APRN.MINE INSPECTOR [employer] [address] [place], [place] [phone] PCP - General Family Medicine 12/17/18 Team Status: Active Member Role Status Dates No Primary Care Physician Family Provider Active Glendy Anderson AUTOMOTIVE SERVICES MANAGER, AUTOMOTIVE SERVICES MANAGER-C Primary Care Provider Active Team Status: Inactive Member Role Status Dates Glendy Anderson AUTOMOTIVE SERVICES MANAGER, AUTOMOTIVE SERVICES MANAGER-C Primary Care Provider, Referr ing Provider Active Dr. Grey Tapia MD Attending Provider Active Team Status: Inactive Member Role Status Dates Glendy Anderson AUTOMOTIVE SERVICES MANAGER, AUTOMOTIVE SERVICES MANAGER-C Primary Care Pr ovider, Attending Provider, Referring Provider Active Team Status: Inactive Member Role Status Dates Glendy Anderson AUTOMOTIVE SERVICES MANAGER, AUTOMOTIVE SERVICES MANAGER-C Primary Care Provider, Attend ing Provider Active Team Status: Inactive Member Role Status Dates Glendy Anderson AUTOMOTIVE SERVICES MANAGER, AUTOMOTIVE SERVICES MANAGER-C Primary Care Provider Active Dr. Grey Tapia MD Attending Provider, Referring Provider Active Team Status: Active Member Role Status Dates Glendy Anderson AUTOMOTIVE SERVICES MANAGER, AUTOMOTIVE SERVICES MANAGER-C Primary Care Provider Active Dr. Grey Tapia MD Referring Provider, Other Pro vider Active Dr. Quinten Elliott DO Attending Provider Active Technical Services Coordinator Relationship Specialty Start Date End Date Glendy Anderson APRN.MINE INSPECTOR [employer] [address] [place] [address] PCP - General Family Medicine 12/17/18 Technical Services Coordinator Relationship Specialty Start Date End Date Glendy Anderson, DIGITAL PRODUCTION OPERATOR.MINE INSPECTOR [employer] [address] [place], [place] [phone] PCP - General Family Medicine 12/17/18 Team Status: Inactive Member Role Status Dates Glendy Anderson AUTOMOTIVE SERVICES MANAGER, AUTOMOTIVE SERVICES MANAGER-C Primary Care Provider, Referr ing Provider Active Margie Reddy AUTOMOTIVE SERVICES MANAGER, AUTOMOTIVE SERVICES MANAGER-C Attending Provider Active Technical Services Coordinator Relationship Specialty Start Date End Date Glendy Anderson, DIGITAL PRODUCTION OPERATOR.MINE INSPECTOR [employer] [address] [place], [place] [phone] PCP - General Family Medicine 12/17/18 Technical Services Coordinator Relationship Specialty Start Date End Date Glendy Anderson, DIGITAL PRODUCTION OPERATOR.MINE INSPECTOR [employer] [address] [place], [place] [phone] PCP - General Family Medicine 12/17/18 Technical Services Coordinator Relationship Specialty Start Date End Date Cheli Wright MD [address] [facility], [facility] [address] [place] [address] PCP - General Pediatrics 10/11/23 Technical Services Coordinator Relationship Specialty Start Date End Date Glendy Anderson, DIGITAL PRODUCTION OPERATOR.MINE INSPECTOR [employer]AL [address] [place], [place] [id number] PCP - General Family Medicine 12/17/18 Technical Services Coordinator Relationship Specialty Start Date End Date Cheli Wright MD [address] [facility], [address] [place], [place] [id number] PCP - General Pediatrics 10/11/23 Technical Services Coordinator Relationship Specialty Start Date End Date Glendy Anderson, DIGITAL PRODUCTION OPERATOR-MINE INSPECTOR FEDERAL [address] After Hours Family Medicine [place], [place] [phone] PCP - General 02/02/24 Technical Services Coordinator Relationship Specialty Start Date End Date Glendy Anderson APRN-MINE INSPECTOR FEDERAL [address] [place] [address] PCP - General 02/02/24 Technical Services Coordinator Relationship Specialty Start Date End Date Glendy Anderson [address] [place] [address] PCP - General 12/17/18 Team Status: Active Member Role/Relationship Status Dates No Primary Care Physician Family Provider Active Glendy Anderson AUTOMOTIVE SERVICES MANAGER, AUTOMOTIVE SERVICES MANAGER-C Primary Care Provider Active Team Status: Inactive Member Role/Relationship Status Dates Glendy Anderson AUTOMOTIVE SERVICES MANAGER, AUTOMOTIVE SERVICES MANAGER-C Primary Care Provider Active Start: October 11, 2024 End: October 11, 2024 Glendy Anderson AUTOMOTIVE SERVICES MANAGER, AUTOMOTIVE SERVICES MANAGER-C Attending Provider Active Start: October 11, 2024 End: October 11, 2024 Glendy Anderson AUTOMOTIVE SERVICES MANAGER, AUTOMOTIVE SERVICES MANAGER-C Referring Provider Active Start: October 11, 2024 End: October 11, 2024 Team Status: Inactive Member Role/Relationship Status Dates Glendy Anderson AUTOMOTIVE SERVICES MANAGER, AUTOMOTIVE SERVICES MANAGER-C Primary Care Provider Active Start: January 09, 2025 End: January 09, 2025 Glendy Anderson AUTOMOTIVE SERVICES MANAGER, AUTOMOTIVE SERVICES MANAGER-C Attending Provider Active Start: January 09, 2025 End: January 09, 2025 Glendy Anderson AUTOMOTIVE SERVICES MANAGER, AUTOMOTIVE SERVICES MANAGER-C Referring Provider Active Start: January 09, 2025 End: January 09, 2025 Team Status: Inactive Member Role/Relationship Status Dates Glendy Anderson AUTOMOTIVE SERVICES MANAGER, AUTOMOTIVE SERVICES MANAGER-C Primary Care Provider Active Start: February 01, 2025 End: February 01, 2025 Glendy Anderson AUTOMOTIVE SERVICES MANAGER, AUTOMOTIVE SERVICES MANAGER-C Attending Provider Active Start: February 01, 2025 End: February 01, 2025 Glendy Anderson AUTOMOTIVE SERVICES MANAGER, AUTOMOTIVE SERVICES MANAGER-C Referring Provider Active Start: February 01, 2025 End: February 01, 2025 Team Status: Inactive Member Role/Relationship Status Dates Glendy Anderson AUTOMOTIVE SERVICES MANAGER, AUTOMOTIVE SERVICES MANAGER-C Primary Care Provider Active Start: February 01, 2025 End: February 01, 2025 Glendy Anderson AUTOMOTIVE SERVICES MANAGER, AUTOMOTIVE SERVICES MANAGER-C Attending Provider Active Start: February 01, 2025 End: February 01, 2025 Technical Services Coordinator Relationship Specialty Start Date End Date Glendy Anderson APRN-MINE INSPECTOR [employer] [address] [place] [address] PCP - General 02/02/24 Cheli Wright MD [address] [facility] [address] [place] [address] PCP - MMO ACO PCP 01/31/24 Team Status: Inactive Member Role/Relationship Status Dates Glendy Anderson AUTOMOTIVE SERVICES MANAGER, AUTOMOTIVE SERVICES MANAGER-C Primary Care Provider Active Start: January 09, 2025 End: January 09, 2025 Glendy Anderson AUTOMOTIVE SERVICES MANAGER, AUTOMOTIVE SERVICES MANAGER-C Attending Provider Active Start: January 09, 2025 End: January 09, 2025 Glendy Anderson AUTOMOTIVE SERVICES MANAGER, AUTOMOTIVE SERVICES MANAGER-C Referring Provider Active Start: January 09, 2025 End: January 09, 2025 Team Status: Inactive Member Role/Relationship Status Dates Glendy Anderson AUTOMOTIVE SERVICES MANAGER, AUTOMOTIVE SERVICES MANAGER-C Primary Care Provider Active Start: February 01, 2025 End: February 01, 2025 Glendy Anderson AUTOMOTIVE SERVICES MANAGER, AUTOMOTIVE SERVICES MANAGER-C Attending Provider Active Start: February 01, 2025 End: February 01, 2025 Glendy Anderson AUTOMOTIVE SERVICES MANAGER, AUTOMOTIVE SERVICES MANAGER-C Referring Provider Active Start: February 01, 2025 End: February 01, 2025 Team Status: Inactive Member Role/Relationship Status Dates Glendy Anderson AUTOMOTIVE SERVICES MANAGER, AUTOMOTIVE SERVICES MANAGER-C Primary Care Provider Active Start: February 01, 2025 End: February 01, 2025 Glendy Anderson AUTOMOTIVE SERVICES MANAGER, AUTOMOTIVE SERVICES MANAGER-C Attending Provider Active Start: February 01, 2025 End: February 01, 2025 Team Status: Inactive Member Role/Relationship Status Dates Glendy Anedrson AUTOMOTIVE SERVICES MANAGER, AUTOMOTIVE SERVICES MANAGER-C Primary Care Provider Active Start: February 19, 2025 End: February 19, 2025 Glendy Anderson AUTOMOTIVE SERVICES MANAGER, AUTOMOTIVE SERVICES MANAGER-C Attending Provider Active Start: February 19, 2025 End: February 19, 2025 Glendy Anderson AUTOMOTIVE SERVICES MANAGER, AUTOMOTIVE SERVICES MANAGER-C Referring Provider Active Start: February 19, 2025 End: February 19, 2025 Technical Services Coordinator Relationship Specialty Start Date End Date Glendy Anderson DIGITAL PRODUCTION OPERATOR-MINE INSPECTOR [employer] [address] [place] [address] PCP - General 02/02/24 Cheli Wright MD [address] [facility], [address] [place] [address] PCP - MMO ACO PCP 01/31/24 Technical Services Coordinator Relationship Specialty Start Date End Date Glendy Anderson, DIGITAL PRODUCTION OPERATOR.MINE INSPECTOR FEDERAL [address] [place] [address] PCP - General Family Medicine 12/17/18 Technical Services Coordinator Relationship Specialty Start Date End Date Glendy Anderson, DIGITAL PRODUCTION OPERATOR.MINE INSPECTOR FEDERAL [address] [place], [place] [phone] PCP - General Family Medicine 12/17/18 Technical Services Coordinator Relationship Specialty Start Date End Date Glendy Anderson, DIGITAL PRODUCTION OPERATOR.MINE INSPECTOR FEDERAL [address] [place], [place] [phone] PCP - General Family Medicine 12/17/18 Goals (unrecognized section and content) Goals may [...] dose 1336 (Given - Provid er: Silvina Ponce RN) morphine injection 4 mg (COMPLETED) 4 [...] Suki 02/15/25 at 1925, For 1 dose 192 (New Bag - Prov ider: Carrie Bennett RN)2039 (Stopped - Provider: Roberto Unger RN) [...] BE BASED ON THE PRIMARY CLINICAL RECORDS. [facility]. provides no warranty or guarantee of the accuracy or completeness of information in this document.
[2025-07-03] MEDS: Lactated Ringers 1,000 ML 15 ML IV (06:58)
--- NOTE | 2025-07-03 07:09 | PCM.HP.STD ---
HPI - General General Date of Service: 07/03/25 Chief Complaint: Change in bowel movements HPI Narrative JUN OLSEN, is a 65 F who presents for colonoscopy to investigate a recent change in bowel movements [facility] Medical History (Updated 06/29/25 @ 09:51 by Ritika Rodas) Wears glasses Post-menopausal Alcohol use Thyroid disease Diabetes Arthritis History of diverticulitis Former smoker History of echocardiogram Cardiology follow-up encounter Hyperglycemia due to type 2 diabetes mellitus Smoker within last 12 months Hot flashes Sleep apnea in adult Hypertension Hypothyroidism Fibromyalgia Seborrheic dermatitis Left hip pain Diverticulitis Home Medications Medication Instructions Recorded Last Taken Type aspirin 81 mg tablet,delayed 81 mg PO DAILY 05/27/18 06/29/25 History release (Adult Low Dose Aspirin) flash glucose sensor (FreeStyle #1 ea 08/23/23 Unknown Rx Omi 2 Sensor kit) lisinopril 20 1 tab PO QDAY #90 tabs 07/17/24 07/02/25 Rx mg-hydrochlorothiazide 12.5 mg tablet metformin 500 mg tablet 500 mg PO BID #180 tabs 07/17/24 07/02/25 Rx trazodone 50 mg tablet 50 mg PO QHS sleep #90 tabs 07/17/24 07/02/25 Rx levothyroxine 150 mcg tablet 150 mcg PO DAILY #90 tabs 07/18/24 Unknown Rx Allergy/AdvReac Type Severity Reaction Status Date / Time prednisone Allergy Severe FELT DRUNK Verified 07/03/25 06:47 AND DIZZY, LIGHTHEADED hydrocodone Allergy Intermediate nausea and Verified 07/03/25 06:47 rash Penicillins Allergy Intermediate nausea and Verified 07/03/25 06:47 rash duloxetine AdvReac Severe Upset Verified 07/03/25 06:47 Stomach Family History (Updated 06/27/25 @ 14:57 by Yadira Rosenthal) Father Diabetes Hypertension Mother Diabetes Hypertension Sister Diabetes stated 3 sisters are diabetic Brother Diabetes stated she has 4 brothers that are diabetic Surgical History (Updated 06/29/25 @ 09:51 by Ritika Rodas) Hx of elbow surgery Hx of section H/O hernia repair History of cholecystectomy H/O colectomy FH: total abdominal hysterectomy and bilateral salpingo-oophorectomy Social History Smoking Status: Former smoker second hand exposure: Yes Vital Signs Vital Signs Vital Signs: 07/03/25 06:48 07/03/25 06:48 07/03/25 06:48 Temperature 97.5 F L Temperature Source Temporal Pulse Rate 84 Respiratory Rate 16 Respiratory Pattern Normal Blood Pressure 139/89 H Blood Pressure Mean 105 Blood Pressure Source Monitor Blood Pressure Position Semi-Fowlers Blood Pressure Location Right Arm Baseline BP 139/89 Pulse Ox 94 Oxygen Delivery Method Room Air Weight Weight: 178 lb Body Mass Index (BMI) 32.5 Physical Exam Const alert, oriented x3 and no apparent distress Assessment & Plan Assessment/Plan (1) Constipation: QUALIFIERS: Constipation type: chronic idiopathic constipation Qualified Code(s): K59.04 - Chronic idiopathic constipation
--- NOTE | 2025-07-03 07:30 | COLBX_PTH ---
PATIENT: JUN OLSEN LOC: EN U#:[id number] AGE/SX: 65/F ROOM: RE07/03/[address]: Dr. Mathieu Menendez MD : 1960 BED: DIS: 07/03/2025 SPEC #: [id number] RECD: 07/03/25 10:22 STATUS: HELENA RETabitha #: [id number] TREMAINE: 07/03/25 07:[address]: Mathieu Menendez DEPT: SURGICAL PATHOLOGY RECD BY: Rene Knight ENTERED: 07/03/25 10:45 SP TYPE: COLON BX OTHR DR: Aundrea Anderson, LIFT SUPERVISOR-C Tissues: A - Descending colon Procedures: Immunohistochemical Stains Surgery Specimen Level IV HEADER OPERATION: Colonoscopy with polypectomy PRE-OP DIAGNOSIS: Constipation TISSUE SUBMITTED: A- Descending polyp MICROSCOPIC DIAGNOSIS A. Colon, descending, polyp, polypectomy: - Polypoid colonic mucosa with submucosal edema. - S100 IHC is negative for evidence of lipoma. MICROSCOPIC DESCRIPTION Slides are reviewed. All matched controls reacted appropriately. These tests were developed and their performance characteristics determined by [facility]. They may not have been cleared or approved by the U.S. Food and Drug Administration. The FDA has determined that such clearance or approval is not necessary. The above immunohistochemical markers and/or special stains have been reviewed by the Pathologist. GROSS DESCRIPTION A. Descending polyp: Is a 0.7 x 0.6 x 0.2 cm you-pink irregular tissue fragment. The resection margin is inked black and the specimen is bisected. Entirely submitted in 1 cassette. RI 07/03/2025PT:[id number]
--- NOTE | 2025-07-03 07:44 | PCM.PRE.AN2 ---
ASA Classification* ASA Classification ASA Classification: 2 Assessment & Plan Anesthesia* Anesthesia Assessment Anesthesia Assessment: Discussed sedation and/or anesthesia options, risks, benefits, and alternatives with patient/parents/legal guardian/POA. Questions invited. The patient/parents/legal guardian/POA seems to understand and agrees to proceed with anesthesia plan. Reviewed the physical assessment, medical history, allergy history and patient home medications list prior to surgery/procedure/anesthetic and documented any changes. Performed airway and anesthesia risk assessments. Anesthesia Type Anesthesia Type: MAC History Source History Obtained from:: Patient and Chart Anesthesia Focused Assessment* Temperature: 97.5 F Pulse Rate: 84 Blood Pressure: 139/89 Respiratory Rate: 16 Pulse Ox: 94 Oxygen Delivery Method: Room Air Airway Assessment Mouth opens: >3 cm Mallampati Score: IV Teeth Condition: Caps/Crowns (Patient has a capped tooth. It is tight.) Neck Range of motion (ROM): Full ROM Labs Anesthesia Preop lab: CBC WBC, (4.4-11.0) 6.8 K/mm3 02/19/25, 16: RBC, (4.2-5.4) 4.59 M/mm3 02/19/25, 16:01 Hgb, (12.0-15.0) 14.3 g/dL 02/19/25, 16:01 Hct, (37-47) 41.5 % 02/19/25, 16:01 Plt Count, (150-450) 331 K/mm3 02/19/25, 16:01 CHEMISTRY Potassium, (3.3-5.1) 4.7 mmol/L 02/19/25, 16:01 Sodium, (133-145) 143 mmol/L 02/19/25, 16:01 Magnesium, (1.5-2.2) 2.3 mg/dL H 02/19/25, 16:01 BUN, (4-19) 17 mg/dL 02/19/25, 16:01 Creatinine, (0.70-1.20) 0.72 mg/dL 02/19/25, 16:01 Glucose, (70-99) 90 mg/dL 02/19/25, 16:01 POC Glucose, (74-106) 275 mg/dL H Today, 06:52 TSH, (0.300-4.200) 2.630 uIU/mL 02/19/25, 16:01 COAG Pre-Assessment Diagnosis/Proposed Procedure Planned Operative Procedure(s): COLONOSCOPY Anesthesia History Anesthesia History - spare person: Anesthesia History - spare person Hx Hospitalization No 06/29/25 09:51 Any Problems With Anesthesia No 06/29/25 09:51 Cholinesterase deficiency No 06/29/25 09:51 You/Your Family Experience No 06/29/25 09:51 fever (hyperthermia) with Relationship Recent Exposure to Contagious No 07/03/25 06:48 Disease Does patient have nerve No 06/29/25 09:51 stimulator Patient instructed to have device shut off --Does patient have Pacemaker No 07/03/25 06:48 or ICD? When Was Last Pacemaker Check QUESTION #4 FULL TEXT: You/Your Family Experience fever (hyperthermia) with Anesthesia Last Oral Intake Last Oral intake: Last Oral Intake NPO since 20:30 07/03/25 06:48 Meds taken in AM with sips of water? Meds patient instructed to take am of surgery PONV PONV - spare person: PONV - spare person Female Yes 06/29/25 09:51 HX of Motion Sickness No 06/29/25 09:51 HX of N/V After Surgery No 06/29/25 09:51 Non-Smoker Yes 06/29/25 09:51 Duration of Surgery greater No 06/29/25 09:51 than 60 minutes Number of Risk Factors 2 06/29/25 09:51 PONV Score Moderate Risk 06/29/25 09:51 Height & Weight Height & Weight: Anesthesia: Height & Weight Height 5 ft 2 in 07/03/25 06:48 Weight: 80.739 kg 07/03/25 06:48 Body Mass Index (BMI) 32.5 07/03/25 06:48 Respiratory Assessment Respiratory Assessment - spare person: Respiratory Tract Infection Hx - spare person Hx Respiratory Tract Infection No 06/29/25 09:51 STOP Sleep Apnea STOP Sleep Apnea - spare person: STOP Sleep Apnea - spare person Hx Hypertension Yes: CONTROLLED ON MED 06/29/25 09:51 Hx Sleep Apnea No 06/29/25 09:51 CPAP BIPAP Do you snore loudly (louder No 06/29/25 09:51 than talking or can be heard Do you often feel tired/ No 06/29/25 09:51 fatigued/ sleepy during daytime? Has anyone observed you stop No 06/29/25 09:51 breathing during sleep? STOP Results Negative 06/29/25 09:51 QUESTION #5 FULL TEXT : Do you snore loudly (louder than talking or can be heard through closed doors)? 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 Specify any problems Hx of Preganancy in last 3 No 06/29/25 09:51 Months Nurse Filling Out Transfusion VCHRISTIN 06/29/25 09:51 & Questions: Date: 06/29/25 06/29/25 09:51 Time: 09:52 06/29/25 09:51 Patient unable to answer at this time (ie. confused, unrespo /Reproduction History /Reproductive History - spare person: /Reproductive Hx- spare person Hx Now No 06/29/25 09:51 Gestational Age (in weeks): EDC: Hx Hx Para Hx Section SAB No 06/29/25 09:51 Does the father of the baby or his family experience fever w Father of the baby Malignant Hypertension history comment Active Medications Active Medications: Current Medications Generic Name Dose Route Start Last Admin Trade Name Freq PRN Reason Stop Dose Admin Lactated Ringer's 1,000 mls @ 15 mls/hr 07/03/25 06:45 07/03/25 06:58 IV 15 mls/hr .Q48H BRIANNA Administration PFSH Medical History Wears glasses Post-menopausal Alcohol use Thyroid disease Diabetes Arthritis History of diverticulitis Former smoker History of echocardiogram Cardiology follow-up encounter Hyperglycemia due to type 2 diabetes mellitus Smoker within last 12 months Hot flashes Sleep apnea in adult Hypertension Hypothyroidism Fibromyalgia Seborrheic dermatitis Left hip pain Diverticulitis Home Medications Medication Instructions Recorded Last Taken Type aspirin 81 mg tablet,delayed 81 mg PO DAILY 05/27/18 06/29/25 History release (Adult Low Dose Aspirin) flash glucose sensor (FreeStyle #1 ea 08/23/23 Unknown Rx Omi 2 Sensor kit) lisinopril 20 1 tab PO QDAY #90 tabs 07/17/24 07/02/25 Rx mg-hydrochlorothiazide 12.5 mg tablet metformin 500 mg tablet 500 mg PO BID #180 tabs 07/17/24 07/02/25 Rx trazodone 50 mg tablet 50 mg PO QHS sleep #90 tabs 07/17/24 07/02/25 Rx levothyroxine 150 mcg tablet 150 mcg PO DAILY #90 tabs 07/18/24 Unknown Rx Allergy/AdvReac Type Severity Reaction Status Date / Time prednisone Allergy Severe FELT DRUNK Verified 07/03/25 06:47 AND DIZZY, LIGHTHEADED hydrocodone Allergy Intermediate nausea and Verified 07/03/25 06:47 rash Penicillins Allergy Intermediate nausea and Verified 07/03/25 06:47 rash duloxetine AdvReac Severe Upset Verified 07/03/25 06:47 Stomach Family History Father Diabetes Hypertension Mother Diabetes Hypertension Sister Diabetes stated 3 sisters are diabetic Brother Diabetes stated she has 4 brothers that are diabetic Surgical History Hx of elbow surgery Hx of section H/O hernia repair History of cholecystectomy H/O colectomy FH: total abdominal hysterectomy and bilateral salpingo-oophorectomy Social History Smoking Status: Former smoker second hand exposure: Yes Review of Systems (Anesthesia) ROS Narrative System reviewed and no additional complaints, except as documented.
--- NOTE | 2025-07-03 08:35 | OP.COLON_ITS ---
Patient Name: Juan Borjas Procedure Date: 07/03/2025 7:40 AM Date of : 1960 Age: 65 Procedure: Colonoscopy Indications: Lower abdominal pain Providers: Mathieu Menendez MD Referring MD: Aundrea Anderson NP Medicines: Monitored Anesthesia Care Patient Profile: Refer to note in patient chart for documentation of history and physical. Last Colonoscopy: more than 3 years ago. Complications: No immediate complications. Estimated blood loss: None. Procedure: Pre-Anesthesia Assessment: - Prior to the procedure, a History and Physical was performed, and patient medications and allergies were reviewed. The patient's tolerance of previous anesthesia was also reviewed. The risks and benefits of the procedure and the sedation options and risks were discussed with the patient. All questions were answered, and informed consent was obtained. Prior Anticoagulants: The patient has taken no anticoagulant or antiplatelet agents. ASA Grade Assessment: II - A patient with mild systemic disease. After reviewing the risks and benefits, the patient was deemed in satisfactory condition to undergo the procedure. After I obtained informed consent, the scope was passed under direct vision. Throughout the procedure, the patient's blood pressure, pulse, and oxygen saturations were monitored continuously. The adult colonoscope was introduced through the anus and advanced to the cecum, identified by appendiceal orifice and ileocecal valve. The ileocecal valve, appendiceal orifice, and rectum were photographed. The entire colon was well visualized. The colonoscopy was performed without difficulty. The patient tolerated the procedure well. The quality of the bowel preparation was adequate. Moderate Sedation: See the other procedure note for documentation of moderate sedation with intraservice time. Scope In: 8:01:43 AM Scope Withdrawal Time 0 hours 15 minutes 51 seconds Scope Out: 8:26:11 AM Total Procedure Duration Time 0 hours 24 minutes 28 seconds Findings: The perianal and digital rectal examinations were normal. Multiple small-mouthed diverticula were found in the sigmoid colon. Internal hemorrhoids were found during retroflexion. The hemorrhoids were moderate. A 4 mm polyp was found in the descending colon. The polyp was semi-sessile. The polyp was removed with a hot snare. Resection and retrieval were complete. Verification of patient identification for the specimen was done by the nurse using the patient's name, date and medical record number. The exam was otherwise without abnormality on direct and retroflexion views. Impression: - Diverticulosis in the sigmoid colon. - Internal hemorrhoids. - One 4 mm polyp in the descending colon, removed with a hot snare. Resected and retrieved. - The examination was otherwise normal on direct and retroflexion views. Recommendation: - High fiber diet. - Await pathology results. - Repeat colonoscopy in 5 years for surveillance. - Return to my office PRN. - Continue present medications. Procedure Code(s): --- Professional --- 66686, Colonoscopy, flexible; with removal of tumor(s), polyp(s), or other lesion(s) by snare technique Diagnosis Code(s): --- Professional --- K64.8, Other hemorrhoids D12.4, Benign neoplasm of descending colon K57.30, Diverticulosis of large intestine without perforation or abscess without bleeding R10.30, Lower abdominal pain, unspecified CPT copyright 2021 [employer]. All rights reserved. The codes documented in this report are preliminary and upon slab off mill tender review may be revised to meet current compliance requirements. Mathieu Menendez MD 07/03/2025 8:34:56 AM This report has been signed electronically. Number of Addenda: 0 Note Initiated On: 07/03/2025 7:40 AM
--- NOTE | 2025-07-03 08:35 | OP.PROVAT_ITS ---
07/03/2025 Aundrea Anderson NP [facility] [address] [place] [id number] Re : Colonoscopy procedure for Juan Borjas Dear Ms. Anderson This procedure was performed on Thursday, July 03, 2025. My impressions and recommendations are as follows: Impressions : - Diverticulosis in the sigmoid colon. - Internal hemorrhoids. - One 4 mm polyp in the descending colon, removed with a hot snare. Resected and retrieved. - The examination was otherwise normal on direct and retroflexion views. Recommendations : - High fiber diet. - Await pathology results. - Repeat colonoscopy in 5 years for surveillance. - Return to my office PRN. - Continue present medications. My findings are described in the full procedure note, which is enclosed. If I can be of further assistance, please feel free to contact me at . Sincerely, Mathieu Menendez MD 07/03/2025 8:34:56 AM This report has been signed electronically.
--- NOTE | 2025-07-03 08:37 | PCM.POST.ANE ---
Anesthesia: Postop Eval I Current Vital Signs Temperature: 97 F Pulse Rate: 82 Blood Pressure: 92/64 Respiratory Rate: 16 Pulse Ox: 92 Oxygen Delivery Method: Room Air Assessment Airway patent: Yes Spontaneous unlabored respirations: Yes Mental status: Awake and Calm nausea: No Vomiting: No Anesthesia Complication: No Fluid Hydration Crystalloid volume administer (ml): 700 Total IV fluid infused: 500 Progress Note Anesthesia document: Postop Eval 1 completed: Yes
--- NOTE | 2025-07-03 10:42 | PCM.POSTANE2 ---
Anesthesia Postop Eval I Sum Postop Eval Completion status Anesthesia document: Postop Eval 1 completed: Yes Anesthesia Postop Eval I Summary Anesthesia Postop Eval I Summary: Anesthesia Postop Eval I: Assessment Summary Airway patent Yes 07/03/25 08:38 [email or web address] Spontaneous unlabored Yes 07/03/25 08:38 [email or web address] respirations Mental status Awake,Calm 07/03/25 08:38 [email or web address] nausea No 07/03/25 08:38 [email or web address] Vomiting No 07/03/25 08:38 [email or web address] Anesthesia Postop Eval I: Fluid Summary Crystalloid volume administer 700 07/03/25 08:38 [email or web address] (ml) Colloids volume administered ( ml) Blood Product volume administered (ml) Total IV fluid infused 500 07/03/25 08:38 [email or web address] Anesthesia Postop Eval I: Summary Notes Anesthesia Complication No 07/03/25 08:38 [email or web address] Anesthesia Complication Comment: Post-operative progress note Anesthesia: Postop Eval II Evaluation Mental status: Awake and Calm Pain Level: 0 nausea: No Vomiting: No Complications Anesthesia Complication: No
== END 2025-07-03 09:02 | disposition home or self-care (01) ==
LOC: EN 06:27 → AC 06:28
PROVIDERS: PCP Nurse Practitioner; Referring Provider Nurse Practitioner; Visit Provider Surgery
PROC: 0DJD8ZZ Inspection of Lower Intestinal Tract, Via Natural or Artificial Opening Endoscopic (ICD-10-PCS; CPT 45378; principal; 2025-07-03 07:25)
DX: K59.04 Chronic idiopathic constipation (principal); E11.9 Type 2 diabetes mellitus without complications; K64.8 Other hemorrhoids; K57.30 Diverticulosis of large intestine without perforation or abscess without bleeding; Z79.84 Long term (current) use of oral hypoglycemic drugs; Z79.82 Long term (current) use of aspirin; I10 Essential (primary) hypertension; Z87.891 Personal history of nicotine dependence; Z79.899 Other long term (current) drug therapy; Z79.890 Hormone replacement therapy; E03.9 Hypothyroidism, unspecified; Z90.49 Acquired absence of other specified parts of digestive tract; Z90.710 Acquired absence of both cervix and uterus; Z90.722 Acquired absence of ovaries, bilateral; K63.5 Polyp of colon
CPT/HCPCS: 45385; 82962; 88305; 88342; J2405